=== PATIENT | male | born 1950 | race Caucasian/White ===

== ENCOUNTER 2019-09-01 19:06 | Emergency (ER) | payer MEDICARE, SELFPAY ==
[2019-09-01 19:07] VITALS: BP 139/77; PULSE 62; RESP 18; TEMP 36.5; O2SAT 98; BMI 26.9
[2019-09-01 19:57] VITALS: BP 144/84; PULSE 58; RESP 16; O2SAT 94
--- NOTE | 2019-09-01 20:41 | CT_ITS ---
STUDY: CT BRAIN WITHOUT CONTRAST REASON FOR EXAM: Male, 69 years old. Dizziness RADIATION DOSAGE (If Supplied By Facility): CTDIvol = ( 44.99 ) mGy, DLP = ( 829.85 ) mGycm TECHNIQUE: Transaxial CT imaging of the brain was performed without administration of intravenous contrast material. Individualized dose optimization techniques were used for this CT. COMPARISON: No relevant priors. FINDINGS: Normal soft tissue structures. Normal calvarium. There is mild cerebral atrophy with widening of the extra-axial spaces and ventricular dilatation. There are areas of decreased attenuation within the white matter tracts of the supratentorial brain, consistent with microvascular disease changes. Normal basal ganglia and thalami. Normal brainstem. Normal cerebellum. There is no intracranial hemorrhage. There are no findings of an acute ischemic infarction. Normal visualized paranasal sinuses. CT/Brain/Head without Contrast IMPRESSION: Chronic involutional changes of the brain. Electronically Signed: Robert Wong MD at 21:57 EDT , Service support ,
--- NOTE | 2019-09-01 20:41 | EKG12_ITS ---
Test Reason : DIZZY Blood Pressure : / mmHG Vent. Rate : 056 BPM Atrial Rate : 056 BPM P-R Int : 146 ms QRS Dur : 084 ms QT Int : 438 ms P-R-T Axes : 069 037 058 degrees QTc Int : 422 ms Sinus bradycardia Otherwise normal ECG Confirmed by AZALEA PRATHER, MICHEAL ([id number]), film and video editor TERA CAMPBELL ([id number]) on 09/05/2019 10:55:27 AM Referred By: LINDSAY Confirmed By:MICHEAL TRISTAN MD
[2019-09-01] MEDS: Meclizine HCl 25 MG Tablet PO (20:48)
[2019-09-01 21:10] LABS: Absolute Lymphocyte Count 1.88 X10^3/uL (0.83-4.51); Absolute Neutrophil Count 8.2 X10^3/uL (2.0-7.7); Basophil# 0.03 X10^3/uL; Basophil% 0.3 % (0-1); Eosinophils% 0.9 % (0-5); Hematocrit 47.8 % (40-54); Hemoglobin 15.9 g/dL (13.0-16.5); Lymphocyte # 1.88 X10^3/ul (4.0); Lymphocyte % 17.3 % (19-41); Mean Corp Hgb Conc 33.3 g/dL (32-36); Mean Corpuscular Hgb 33.3 pg (27.0-32.0); Mean Corpuscular Volume 100.2 fL (80-94); Mean Platelet Vol. 9.3 fl (6.2-12.0); Monocyte# 0.63 X10^3/uL; Monocyte% 5.8 % (0-10); NRBC Flagged by Analyzer 0 % (0-5); Neutrophil % 75.2 % (47-70); Platelet Count 396 K/mm3 (150-450); RBC Distribution Width CV 12.5 % (11.6-14.6); RBC Distribution Width SD 46.5 fl (35.1-43.9); Red Blood Count 4.77 M/mm3 (4.6-6.2); White Blood Count 10.9 K/mm3 (4.4-11.0)
[2019-09-01 21:29] LABS: Anion Gap 8 (5-15); BUN 13 mg/dL (7-18); BUN/Creat Ratio 16.2 RATIO (10-20); Calcium,Total 9.8 mg/dL (8.5-10.1); Chloride 103 mmol/L (98-107); EST Glomerular Filtration Rate 101 mL/min (>60); Est Glom Filt Rate - Afr Amer 122 mL/min (>60); Estimated Creatinine Clearance 91.51 ml/min; Glucose 121 mg/dL (74-106); Potassium 4.1 mmol/L (3.5-5.1); Sodium Level 137 mmol/L (136-145)
[2019-09-01 22:00] VITALS: BP 132/87; PULSE 62; RESP 16; O2SAT 98
--- NOTE | 2019-09-01 22:29 | ED.VISSUMM ---
- ER Visit Summary Date of Service: 09/01/19 Chief Complaint: [Dizziness] History of Present Illness: The patient is a 69 M [presents to the emergency department with complaint of dizziness for the last 2 days. Patient states that he awoke one morning and as soon as he sat up in bed he had sensation of things spinning around and round. Patient was nauseated with it. He did vomit once. Patient states that he at times has to walk holding onto things and feels very off balance. He does have a little bit of a right-sided headache. He denies any falls or head injuries. He denies recent illness. Patient is never had symptoms like this before. He denies any chest pain or shortness of breath.] Physical Examination: [HEENT-PERRLA, EOMI. Cranial nerves II through XII grossly intact. TMs clear. Mucous membranes moist. No adenopathy. Cardiovascular-regular rate and rhythm without murmur or ectopy Lungs-clear to auscultation, chest wall stable without crepitus or subcu emphysema Abdomen-normoactive bowel sounds, soft, nontender, no rebound or rigidity, no peritoneal signs. Neuro aljj-bbsuwx-wgsp and heel forbes testing within normal limits, negative Romberg, negative pronator drift, fundi benign. Patient had Hallpike maneuver performed however I could not reproduce any nystagmus or any of his symptoms. Extremities-intact ?4, normal range of motion, normal pulses, atraumatic] Test Results: [EKG obtained arrival shows sinus rhythm with a ventricular rate of 56 bpm with no acute ST segment changes. CBC with differential shows a white count 10.9, hemoglobin 15.9, hematocrit 48, platelets 396. Chemistries unremarkable. Troponin less than 0.15. CT scan of the brain without contrast showed chronic involutional changes. Static vital signs were negative.] Emergency Department Course and Treatment: [Received Antivert 25 mg p.o. and had very good improvement in his symptoms. Patient now able to ambulate without difficulty. Dizziness is minimal at this time. Patient feels comfortable going home and following up with primary care physician.] Treatment Plan: [Discharged home in stable condition with prescription for Antivert. Patient advised to follow-up with primary care physician 3 to 5 days.] Disposition: [Discharged home stable condition] Impression: [Benign positional vertigo] This note was generated with Dragon dictation software. It may contain incorrect words, spelling, and punctuation that were not noted in review of the chart prior to signing ED Disposition - Plan for ED Patient: [facility] [Primary Care Provider] -
--- NOTE | 2019-09-01 22:32 | ED.DEP ---
ED Disposition - Plan for ED Patient: Instructions: Benign Positional Vertigo Prescriptions: Meclizine HCl [Antivert] 25 mg PO 4X/DAY PRN PRN #20 tab PRN Reason: Anxiety Prescription Printed Referrals: [facility] [Primary Care Provider] - 3-5 Days
[2019-09-01 22:39] VITALS: BP 137/80; PULSE 58; RESP 16; O2SAT 95
== END 2019-09-01 22:42 | disposition short-term general hospital (02) ==
PROVIDERS: Emergency Provider Emergency Medicine
DX: H81.10 Benign paroxysmal vertigo, unspecified ear (principal); I10 Essential (primary) hypertension; J44.9 Chronic obstructive pulmonary disease, unspecified; K21.9 Gastro-esophageal reflux disease without esophagitis; E11.9 Type 2 diabetes mellitus without complications; Z79.899 Other long term (current) drug therapy; Z72.0 Tobacco use
CPT/HCPCS: 70450; 80048; 84484; 85025; 93005; 99285; A4216

== ENCOUNTER 2021-01-10 16:09 | Outpatient (RCR) | payer MEDICARE, SELFPAY ==
[2021-01-10] MEDS: COVID-19 VACC, MRNA(PFIZER)/PF 30 MCG/0.3 ML SYRINGE IM (18:30)
[2021-01-31] MEDS: COVID-19 VACC, MRNA(PFIZER)/PF 30 MCG/0.3 ML SYRINGE IM (18:05)
== END 2021-01-10 23:59 ==
LOC: IMMUN 16:09
PROVIDERS: Referring Provider Family Medicine; Visit Provider Family Medicine
DX: Z23 Encounter for immunization (principal)
CPT/HCPCS: 0001A; 0002A; 91300

== ENCOUNTER 2021-09-12 17:57 | Emergency (ER) | payer MEDICARE, OTHER, SELFPAY ==
[2021-09-12 17:59] VITALS: BP 170/157; PULSE 61; TEMP 35.9; O2SAT 95; BMI 28.4
[2021-09-12 18:15] VITALS: BP 142/93; PULSE 65; RESP 20; O2SAT 91
--- NOTE | 2021-09-12 18:19 | EKG12_ITS ---
Test Reason : SOB Blood Pressure : / mmHG Vent. Rate : 058 BPM Atrial Rate : 058 BPM P-R Int : 000 ms QRS Dur : 074 ms QT Int : 414 ms P-R-T Axes : 000 024 053 degrees QTc Int : 406 ms Ectopic atrial rhythm Abnormal ECG Confirmed by STEVEN PRATHER, ANA ([id number]), news video editor TERA CAMPBELL ([id number]) on 09/16/2021 10:54:47 AM Referred By: BELEN Confirmed By:ANA HARRIS MD
[2021-09-12] MEDS: MethylPREDNISolone 125 MG/2 ML Vial IV (18:34)
--- NOTE | 2021-09-12 18:38 | EDS_ITS ---
HPI History of Present Illness Chief Complaint: Shortness of Breath Narrative Narrative: Patient is a 71-year-old male with past medical history of COPD who states he does not typically need to wear any supplemental oxygen. He reports over the last 5 to 7 days he had increased congestion cough and shortness of breath. He states he went to an urgent care today where they swabbed him for Covid and he was negative. He reports he was given an inhaler but had no symptom improvement and secondary to this comes in for evaluation. [facility] Medical History Acute maxillary sinusitis, unspecified Encounter for screening for COVID-19 Home Medications amlodipine 10 mg PO DAILY 08/13/15 [History Last Taken Unknown] carvedilol 12.5 mg PO BID 08/13/15 [History Last Taken Unknown] cholecalciferol (vitamin D3) [Vitamin D3] 1,000 unit PO DAILY 08/13/15 [History Last Taken Unknown] lysine HCl 1,000 mg PO DAILY 08/13/15 [History Last Taken Unknown] kvmibqyg-nah-MQ-lycopen-lutein [Centrum Silver] 1 ea PO DAILY 08/13/15 [History Last Taken Unknown] omeprazole 20 mg PO BID 08/13/15 [History Last Taken Unknown] rosuvastatin [Crestor] 20 mg PO QHS 08/13/15 [History Last Taken Unknown] simethicone [Gas-X] 80 mg PO BID 08/13/15 [History Last Taken Unknown] diphenhydramine HCl [Benadryl] 25 mg PO TID PRN PRN #20 capsule 08/14/15 [Rx Last Taken Unknown] epinephrine 0.3 mg IM X1 PRN #2 syringe 08/14/15 [Rx Last Taken Unknown] famotidine 20 mg PO BID 7 Days tablet 08/14/15 [Rx Last Taken Unknown] prednisone 20 mg PO DAILY 5 Days days 08/14/15 [Rx Last Taken Unknown] sulfamethoxazole-trimethoprim 1 tab PO BID #28 tab 11/24/17 [Rx Last Taken Unknown] meclizine 25 mg PO 4X/DAY PRN PRN #20 tab 09/01/19 [Rx Last Taken Unknown] benzonatate 200 mg PO TID PRN #60 cap 09/12/21 [Rx Last Taken Unknown] ipratropium-albuterol 3 ml INHALATION Q6H PRN #180 ml 09/12/21 [Rx Last Taken Unknown] prednisone 40 mg PO DAILY #10 tab 09/12/21 [Rx Last Taken Unknown] Allergy/AdvReac Type Severity Reaction Status Date / Time No Known Allergies Allergy Verified 09/12/21 17:58 Social History Smoking Status: Current every day smoker tobacco type: cigarettes ROS ROS ED Constitutional Constitutional ED: Denies chills or fever(s) ENT ENT ED: Reports rhinorrhea; Denies sore throat Cardiovascular Cardiovascular: Denies chest pain Respiratory/Chest Respiratory/Chest: Reports cough and dyspnea Gastrointestinal Gastrointestinal: Denies abdominal pain, diarrhea, nausea or vomiting Genitourinary Genitourinary ED: Denies dysuria Musculoskeletal Musculoskeletal: Denies myalgias Integumentary Denies rash Neurologic Neurologic: Denies headache(s) Hematologic/Lymphatic Hematologic/Lymphatic: Denies easy bleeding or easy bruising EXAM Physical Exam Const Vital Signs: 09/12/21 17:59 09/12/21 18:15 09/12/21 18:47 Temperature 96.6 F L Temperature Source Temporal Pulse Rate 61 65 69 Respiratory Rate 20 H 22 H Respiratory Effort Non-Labored Short of Breath Short of Breath Respiratory Depth Normal Shallow Respiratory Pattern Tachypnea Blood Pressure 170/157 H 142/93 H Blood Pressure Mean 161 109 Pulse Ox 95 91 93 Oxygen Delivery Method Room Air Room Air Room Air 09/12/21 19:38 Temperature Temperature Source Pulse Rate 61 Respiratory Rate 18 Respiratory Effort Respiratory Depth Respiratory Pattern Blood Pressure 118/62 Blood Pressure Mean 80 Pulse Ox 92 Oxygen Delivery Method Room Air Positive well nourished and well developed General Appearance ED: well developed HEENT Reports moist mucous membranes HEENT Narrative: Cobblestoning the posterior pharynx consistent with sinus drainage but no tongue or lip swelling no oral lesions no airway edema or compro mise Eyes PERRL and EOMs intact bilaterally Neck supple and no JVD Chest Wall palpation of chest normal Resp Resp Narrative: Breath sounds are diminished throughout with diffuse inspiratory and expiratory wheezes as well as mild tachypnea but otherwise no signs of respiratory distress Cardio regular rate and regular rhythm Rate: other Other Details: Radial pulses are plus 2 out of 4 bilaterally are equal and symmetric GI normal to inspection, nondistended, normoactive bowel sounds, non-tender, non- distended and no masses GI Narrative: No voluntary guarding or rigidity no pulsatile mass Auscultation: normoactive bowel sounds Palpation: soft Extremity normal to inspection Extremity Narrative: No asymmetric edema no pitting edema negative Homans' sign bilaterally Neuro oriented x3 and CN's II-XII intact bilaterally Sensorium / Orientation: alert Psych mental status grossly normal Skin no rashes or lesions noted MDM MDM MDM Narrative Medical decision making narrative: Scented to the ER afebrile and satting in the low to mid 90s on room air. He reports he smoked up to 3 packs a day for approximately 30 years and that he also had an outpatient Covid test today which was negative. Based on his history I felt he was having a COPD exacerbation secondary to some type of virus. I elected perform a basic cardiac work-up which shows no signs of heart failure and chest x-ray reveals no signs of pneumothorax or pneumonia. Patient was given breathing treatments as well as Solu-Medrol and on reevaluation has improvement in his breath sounds. He was ambulated and his pulse ox started at 96% and dropped to 90 but not below this. Therefore I feel that he does not desaturate into the 80s or 70s and he does not have signs of heart damage or pneumonia that he does not need to be kept in the hospital and can be discharged with symptomatic care Lab Data Attestation: I reviewed the patient's lab results. Labs: Laboratory Results - last 24 hr 09/12/21 09/12/21 09/12/21 18:26 18:26 18:26 WBC 9.1 RBC 4.75 Hgb 15.9 Hct 47.0 MCV 98.9 H MCH 33.5 H MCHC 33.8 RDW Std Deviation 48.1 H RDW Coeff of Tarik 13.1 Plt Count 292 MPV 10.3 Immature Gran % (Auto) 0.200 Neut % (Auto) 58.5 Lymph % (Auto) 22.5 [place] % (Auto) 8.1 Eos % (Auto) 10.3 H Baso % (Auto) 0.4 Absolute Neuts (auto) 5.3 Absolute Lymphs (auto) 2.06 Nucleated RBC % 0 Sodium 138 Potassium 4.2 Chloride 103 Carbon Dioxide 29.0 Anion Gap 6 BUN 14 Creatinine 1.06 Estim Creat Clear Calc 67.09 Est GFR (MDRD) Af Amer 88 Est GFR (MDRD) Non-Af 73 BUN/Creatinine Ratio 13.2 Glucose 154 H Calcium 9.3 Magnesium 2.1 Troponin I High Sens 10 B-Natriuretic Peptide 17.0 Radiography Diagnostic Testing: Clinical Impression(s) from Imaging Studies Chest X-Ray 09/12/21 19:00 IMPRESSION: No acute radiographic abnormalities. COPD. Electronically Signed: Luis Lion MD at 19:20 EDT Tel , Service support , Discharge Plan Triage Chief Complaint: Shortness of Breath ED Provider: Aftab Mann Dx/Rx/DC Orders Clinical Impression: Acute exacerbation of chronic obstructive pulmonary disease Instructions: COPD: Wheezing and Chest Tightness Prescriptions: New prednisone 20 mg tablet 40 mg PO DAILY Qty: 10 RF: 0 benzonatate 100 mg capsule 200 mg PO TID PRN (Reason: cough) Qty: 60 RF: 0 ipratropium-albuterol 0.5 mg-3 mg(2.5 mg base)/3 mL solution for nebulization 3 ml inhalation Q6H PRN (Reason: shortness of breath or wheezing) Qty: 180 RF: 0 No Action carvedilol 12.5 MG tablet 12.5 mg PO BID RF: 0 amlodipine 10 MG tablet 10 mg PO DAILY RF: 0 omeprazole 20 MG capsule 20 mg PO BID RF: 0 simethicone [Gas-X] 80 MG tablet,chewable 80 mg PO BID RF: 0 rosuvastatin [Crestor] 20 MG tablet 20 mg PO QHS RF: 0 xemjuhbo-nlh-YV-lycopen-lutein [Centrum Silver] 1 EACH tablet 1 ea PO DAILY RF: 0 cholecalciferol (vitamin D3) [Vitamin D3] 1,000 UNIT tablet 1,000 unit PO DAILY RF: 0 lysine HCl 1,000 MG tablet 1,000 mg PO DAILY RF: 0 prednisone 10 MG tablet 20 mg PO DAILY 5 Days RF: 0 famotidine 20 MG tablet 20 mg PO BID 7 Days RF: 0 diphenhydramine HCl [Banophen] 25 MG capsule 25 mg PO TID PRN PRN (Reason: Allergies) Qty: 20 RF: 0 epinephrine 0.3 MG syringe 0.3 mg IM X1 PRN (Reason: Angioedema) Qty: 2 RF: 0 sulfamethoxazole-trimethoprim 1 TABLET tablet 1 tab PO BID Qty: 28 RF: 0 meclizine 25 MG tablet 25 mg PO 4X/DAY PRN PRN (Reason: Anxiety) Qty: 20 RF: 0 [facility] Provider[facility] [[facility] Provider] - Disposition Disposition: Home, Self Care
[2021-09-12 18:39] LABS: Absolute Lymphocyte Count 2.06 X10^3/uL (0.83-4.51); Absolute Neutrophil Count 5.3 X10^3/uL (2.0-7.7); Basophil# 0.04 X10^3/uL; Basophil% 0.4 % (0-1); Eosinophil# 0.94 X10^3/uL; Eosinophils% 10.3 % (0-5); Hemoglobin 15.9 g/dL (13.0-16.5); Lymphocyte # 2.06 X10^3/ul (0.83-4.51); Lymphocyte % 22.5 % (19-41); Mean Corp Hgb Conc 33.8 g/dL (32-36); Mean Corpuscular Hgb 33.5 pg (27.0-32.0); Mean Corpuscular Volume 98.9 fL (80-94); Mean Platelet Vol. 10.3 fl (6.2-12.0); Monocyte# 0.74 X10^3/uL; Monocyte% 8.1 % (0-10); NRBC Flagged by Analyzer 0 % (0-5); Neutrophil # 5.34 X10^3/uL (2.7-7.7); Neutrophil % 58.5 % (47-70); Platelet Count 292 K/mm3 (150-450); RBC Distribution Width CV 13.1 % (11.6-14.6); RBC Distribution Width SD 48.1 fl (35.1-43.9); Red Blood Count 4.75 M/mm3 (4.6-6.2); White Blood Count 9.1 K/mm3 (4.4-11.0)
[2021-09-12 18:47] VITALS: PULSE 69; RESP 20; RESP 22; O2SAT 93
[2021-09-12] MEDS: Albuterol 2.5 MG/3 ML VIAL.NEB. INHALATION (18:47)
[2021-09-12] MEDS: Ipratropium/Albuterol Sulfate 3 ML AMPUL.NEB INHALATION (18:47)
[2021-09-12 18:54] LABS: Anion Gap 6 (5-15); BUN 14 mg/dL (7-18); BUN/Creat Ratio 13.2 RATIO (10-20); Calcium,Total 9.3 mg/dL (8.5-10.1); Chloride 103 mmol/L (98-107); Creatinine, Serum 1.06 mg/dL (0.70-1.30); EST Glomerular Filtration Rate 73 mL/min (>60); Est Glom Filt Rate - Afr Amer 88 mL/min (>60); Estimated Creatinine Clearance 67.09 ml/min; Glucose 154 mg/dL (74-106); Magnesium 2.1 mg/dL (1.6-2.6); Potassium 4.2 mmol/L (3.5-5.1); Sodium Level 138 mmol/L (136-145); Troponin-I HS 10 pg/mL (3.0-78.0)
--- NOTE | 2021-09-12 19:00 | RAD_ITS ---
INDICATION: cough EXAMINATION/TECHNIQUE: X-RAY - XR Chest 2 Views COMPARISON: 11/23/2017. FINDINGS: Chronic lung changes. No acute lung findings. Hyperinflated lungs. Tortuous and calcified thoracic aorta. The heart is borderline enlarged. No pleural effusion or pneumothorax. Degenerative changes of the thoracic spine. RAD/Chest PA and Lateral IMPRESSION: No acute radiographic abnormalities. COPD. Electronically Signed: Luis Lion MD at 19:20 EDT Tel , Service support ,
[2021-09-12 19:38] VITALS: BP 118/62; PULSE 61; RESP 18; O2SAT 92
[2021-09-12 19:42] VITALS: O2SAT 96
== END 2021-09-12 19:59 | disposition home or self-care (01) ==
PROVIDERS: Emergency Provider Emergency Medicine
DX: J44.1 Chronic obstructive pulmonary disease with (acute) exacerbation (principal); F17.210 Nicotine dependence, cigarettes, uncomplicated
CPT/HCPCS: 71046; 80048; 83735; 83880; 84484; 85025; 93005; 94640; 96374; 99251; 99283; A4216; G0463

== ENCOUNTER 2021-09-26 14:47 | Emergency (ER) | payer OTHER, SELFPAY ==
[2021-09-26 14:48] VITALS: BP 118/80; PULSE 67; RESP 22; TEMP 36.9; O2SAT 85; BMI 26.4
[2021-09-26 14:51] VITALS: O2SAT 89; O2SAT 95
[2021-09-26 14:58] VITALS: O2SAT 93
--- NOTE | 2021-09-26 15:17 | EKG12_ITS ---
Test Reason : SOB Blood Pressure : / mmHG Vent. Rate : 058 BPM Atrial Rate : 058 BPM P-R Int : 160 ms QRS Dur : 080 ms QT Int : 440 ms P-R-T Axes : 109 032 062 degrees QTc Int : 431 ms Sinus bradycardia Otherwise normal ECG Confirmed by ADAM PRATHER, JORDON ([id number]), magazine editor TERA CAMPBELL ([id number]) on 09/27/2021 1:58:45 P M Referred By: YA Confirmed By:VIDYA MEDINA MD
--- NOTE | 2021-09-26 15:17 | CT_ITS ---
STUDY: CTA CHEST REASON FOR EXAM: Male, 71 years old. Hypoxia RADIATION DOSAGE (If Supplied By Facility): CTDIvol = ( 11.94 ) mGy, DLP = ( 432.7 ) mGycm TECHNIQUE: The examination was performed with the intravenous administration of IV 100mL Isovue-370. Post-processing of the angiographic images was performed, with multiplanar reformation and 3D reconstruction. Individualized dose optimization techniques were used for this CT. COMPARISON: 06/19/2012 FINDINGS: Several 2 to 3 mm right lung base pulmonary nodules are stable compared to remote prior. Normal enhancement of the main pulmonary artery and right and left pulmonary arteries. Normal enhancement of the bilateral peripheral pulmonary arteries. There is no demonstrated pulmonary embolism. There is aneurysmal dilatation of the ascending aorta. The transverse diameter of the ascending aorta measures 41 mm''s. There is no demonstrated aortic dissection. Normal heart and pericardium. Normal mediastinum. Normal hilar regions. Normal visualized trachea and bronchi. The lungs are well expanded. Severe diffuse emphysema. Normal pleura. Normal chest wall structures. Normal osseous structures. Normal visualized upper abdomen. CT/CTA Chest W/WO Contrast IMPRESSION: No demonstrated pulmonary embolism or arterial dissection. Severe diffuse emphysematous disease. Ascending aortic aneurysm measures up to 41 mm in diameter. Electronically Signed: Reese Hess MD at 17:19 EST Tel , Service support ,
[2021-09-26 15:29] LABS: Absolute Lymphocyte Count 2.11 X10^3/uL (0.83-4.51); Absolute Neutrophil Count 5.7 X10^3/uL (2.0-7.7); Basophil# 0.04 X10^3/uL; Basophil% 0.4 % (0-1); Eosinophil# 1.27 X10^3/uL; Eosinophils% 12.6 % (0-5); Hemoglobin 16.3 g/dL (13.0-16.5); Lymphocyte # 2.11 X10^3/ul (0.83-4.51); Lymphocyte % 20.9 % (19-41); Mean Corpuscular Hgb 33.2 pg (27.0-32.0); Mean Corpuscular Volume 97.8 fL (80-94); Mean Platelet Vol. 10.3 fl (6.2-12.0); Monocyte# 0.89 X10^3/uL; Monocyte% 8.8 % (0-10); NRBC Flagged by Analyzer 0 % (0-5); Neutrophil # 5.73 X10^3/uL (2.7-7.7); Neutrophil % 56.8 % (47-70); Platelet Count 270 K/mm3 (150-450); RBC Distribution Width CV 12.9 % (11.6-14.6); RBC Distribution Width SD 46.3 fl (35.1-43.9); Red Blood Count 4.91 M/mm3 (4.6-6.2); White Blood Count 10.1 K/mm3 (4.4-11.0)
[2021-09-26] MEDS: MethylPREDNISolone 125 MG/2 ML Vial IV (15:29)
--- NOTE | 2021-09-26 15:31 | EDS_ITS ---
HPI History of Present Illness Chief Complaint: Shortness of Breath Narrative Narrative: Patient is a 71-year-old male with past medical history of COPD who smokes half to 1 pack a day. He was seen approximately 2 weeks ago for similar event and at that time was Covid negative did not have pneumonia or signs of heart damage. When he was ambulated and his pulse ox did not drop and therefore he was discharged home with symptomatic medications. Patient states while he was on the steroids he reported feeling better but after that had return of shortness of breath. He states that his has a home pulse ox because she wears oxygen and that with ambulation he has had his pulse ox dropped into the low 80s. Secondary to these worsening symptoms and hypoxia he presents for reevaluation [facility] Medical History Acute maxillary sinusitis, unspecified Encounter for screening for COVID-19 Home Medications Centrum Silver 1 ea PO DAILY 08/13/15 [History Last Taken Unknown] simethicone [Gas-X] 80 mg PO BID 08/13/15 [History Last Taken Unknown] ipratropium-albuterol 3 ml INHALATION Q6H PRN #180 ml 09/12/21 [Rx Last Taken Unknown] Mucinex 1,200 mg PO/SL BID 09/26/21 [History Last Taken Unknown] aspirin 81 mg PO/SL DAILY 09/26/21 [History Last Taken Unknown] cetirizine 10 mg PO/SL BID 09/26/21 [History Last Taken Unknown] fluticasone furoate-vilanterol [Breo Ellipta] 1 inh INHALATION DAILY #60 ea 09/26/21 [Rx Last Taken Unknown] fluticasone propionate 50 mcg NASAL PRN PRN 09/26/21 [History Last Taken Unknown] hydrochlorothiazide 25 mg PO/SL DAILY 09/26/21 [History Last Taken Unknown] ipratropium-albuterol 3 ml INHALATION Q6H PRN #90 ml 09/26/21 [Rx Last Taken Unknown] lisinopril 30 mg PO/SL DAILY 09/26/21 [History Last Taken Unknown] metformin 09/26/21 [History Last Taken Unknown] metoprolol tartrate 50 mg PO/SL BID 09/26/21 [History Last Taken Unknown] montelukast 10 mg PO/SL QHS 09/26/21 [History Last Taken Unknown] potassium chloride 20 mg PO/SL BID 09/26/21 [History Last Taken Unknown] prednisone 40 mg PO DAILY #10 tab 09/26/21 [Rx Last Taken Unknown] simvastatin 20 mg PO/SL DAILY 09/26/21 [History Last Taken Unknown] Allergy/AdvReac Type Severity Reaction Status Date / Time No Known Allergies Allergy Verified 09/26/21 14:57 Social History Smoking Status: Current every day smoker tobacco type: cigarettes ROS ROS ED Constitutional Constitutional ED: Denies chills or fever(s) ENT ENT ED: Denies rhinorrhea or sore throat Cardiovascular Cardiovascular: Denies chest pain Respiratory/Chest Respiratory/Chest: Reports cough and dyspnea; Denies sputum Gastrointestinal Gastrointestinal: Denies abdominal pain, diarrhea, nausea or vomiting Genitourinary Genitourinary ED: Denies dysuria Musculoskeletal Musculoskeletal: Denies myalgias Integumentary Denies rash Neurologic Neurologic: Denies headache(s) Hematologic/Lymphatic Hematologic/Lymphatic: Denies easy bleeding or easy bruising EXAM Physical Exam Const Vital Signs: 09/26/21 14:48 09/26/21 14:51 09/26/21 14:56 Temperature 98.4 F Temperature Source Temporal Pulse Rate 67 Respiratory Rate 22 H Respiratory Effort Respiratory Depth Respiratory Pattern Blood Pressure 118/80 Blood Pressure Mean 92 Pulse Ox 85 95 Oxygen Delivery Method Room Air Nasal Cannula Nasal Cannula Oxygen Flow Rate (L/min) 2 2 09/26/21 14:58 09/26/21 15:52 Temperature Temperature Source Pulse Rate 62 Respiratory Rate 22 H Respiratory Effort Short of Breath Respiratory Depth Normal Respiratory Pattern Tachypnea Tachypnea Blood Pressure Blood Pressure Mean Pulse Ox Oxygen Delivery Method Nasal Cannula Oxygen Flow Rate (L/min) 2 Positive well nourished and well developed General Appearance ED: well developed HEENT Reports moist mucous membranes HEENT Narrative: No tongue or lip swelling no oral lesions no airway edema or compromise Eyes PERRL and EOMs intact bilaterally Neck supple and no JVD Resp normal respiratory effort Resp Narrative: Breath sounds are diminished throughout with diffuse inspiratory and expiratory wheezes but no nasal flaring retractions tachypnea or accessory muscle use Cardio regular rate and regular rhythm Rate: other Other Details: Radial pulses are plus 2 out of 4 bilaterally are equal and symmetric GI normal to inspection, nondistended, normoactive bowel sounds, non-tender, non- distended and no masses Auscultation: normoactive bowel sounds Palpation: soft Extremity normal to inspection Extremity Narrative: No asymmetric edema no pitting edema negative Homans' sign bilaterally Neuro oriented x3 and CN's II-XII intact bilaterally Sensorium / Orientation: alert Psych mental status grossly normal Skin no rashes or lesions noted MDM MDM MDM Narrative Medical decision making narrative: To the ER satting 85% on room air. However at rest and with a few liters of nasal cannula oxygen his pulse ox improved to 92 to 95%. With his recent ER visit approximately 2 weeks ago I did elect to perform repeat laboratory studies as well as Covid swab and this time a CTA. Labs revealed no clinically significant findings and CTA revealed emphysema/COPD changes without pneumonia or pneumothorax or lung cancer changes. Therefore at this time patient does not have cardiac event anemia or infection as a cause of his shortness of breath but simply COPD exacerbation. We have the ability to prescribe oxygen and therefore he will be placed on this and otherwise is safe for discharge since he now has a treatment that which would be provided in the hospital. This plan of care was discussed with the patient and he is agreeable to it Lab Data Attestation: I reviewed the patient's lab results. Labs: Laboratory Results - last 24 hr 09/26/21 09/26/21 09/26/21 15:05 15:05 15:05 WBC RBC Hgb Hct MCV MCH MCHC RDW Std Deviation RDW Coeff of Tarik Plt Count MPV Immature Gran % (Auto) Neut % (Auto) Lymph % (Auto) [place] % (Auto) Eos % (Auto) Baso % (Auto) Absolute Neuts (auto) Absolute Lymphs (auto) Nucleated RBC % PT 12.4 INR 1.0 APTT 23.9 L Sodium 137 Potassium 3.7 Chloride 101 Carbon Dioxide 30.0 Anion Gap 6 BUN 13 Creatinine 1.02 Estim Creat Clear Calc 69.72 Est GFR (MDRD) Af Amer 92 Est GFR (MDRD) Non-Af 76 BUN/Creatinine Ratio 12.7 Glucose 122 H Calcium 9.3 Magnesium 2.3 Troponin I High Sens 7 B-Natriuretic Peptide 10.3 09/26/21 15:05 WBC 10.1 RBC 4.91 Hgb 16.3 Hct 48.0 MCV 97.8 H MCH 33.2 H MCHC 34.0 RDW Std Deviation 46.3 H RDW Coeff of Tarik 12.9 Plt Count 270 MPV 10.3 Immature Gran % (Auto) 0.500 Neut % (Auto) 56.8 Lymph % (Auto) 20.9 [place] % (Auto) 8.8 Eos % (Auto) 12.6 H Baso % (Auto) 0.4 Absolute Neuts (auto) 5.7 Absolute Lymphs (auto) 2.11 Nucleated RBC % 0 PT INR APTT Sodium Potassium Chloride Carbon Dioxide Anion Gap BUN Creatinine Estim Creat Clear Calc Est GFR (MDRD) Af Amer Est GFR (MDRD) Non-Af BUN/Creatinine Ratio Glucose Calcium Magnesium Troponin I High Sens B-Natriuretic Peptide Radiography Diagnostic Testing: Clinical Impression(s) from Imaging Studies Chest CTA 09/26/21 15:17 IMPRESSION: No demonstrated pulmonary embolism or arterial dissection. Severe diffuse emphysematous disease. Ascending aortic aneurysm measures up to 41 mm in diameter. Electronically Signed: Reese Hess MD at 17:19 EST Tel , Service support , Discharge Plan Triage Chief Complaint: Shortness of Breath ED Provider: Aftab Mann Dx/Rx/DC Orders Clinical Impression: Acute exacerbation of chronic obstructive pulmonary disease, Hypoxia Instructions: Chronic Lung Disease ... Prescriptions: New Breo Ellipta 100-25 mcg/dose blister with device 1 inh inhalation DAILY Qty: 60 RF: 0 prednisone 20 mg tablet 40 mg PO DAILY Qty: 10 RF: 0 ipratropium-albuterol 0.5 mg-3 mg(2.5 mg base)/3 mL solution for nebulization 3 ml inhalation Q6H PRN (Reason: shortness of breath or wheezing) Qty: 90 RF: 0 No Action simethicone [Gas-X] 80 MG tablet,chewable 80 mg PO BID RF: 0 Centrum Silver 1 EACH tablet 1 ea PO DAILY RF: 0 ipratropium-albuterol 0.5 mg-3 mg(2.5 mg base)/3 mL solution for nebulization 3 ml inhalation Q6H PRN (Reason: shortness of breath or wheezing) Qty: 180 RF: 0 metformin RF: 0 Mucinex 1,200 mg PO/SL BID RF: 0 aspirin 81 mg PO/SL DAILY RF: 0 cetirizine 10 mg PO/SL BID RF: 0 fluticasone propionate 50 mcg NASAL PRN PRN (Reason: Congestion) RF: 0 hydrochlorothiazide 25 mg PO/SL DAILY RF: 0 lisinopril 30 mg PO/SL DAILY RF: 0 metoprolol tartrate 50 mg PO/SL BID RF: 0 montelukast 10 mg PO/SL QHS RF: 0 potassium chloride 20 mg PO/SL BID RF: 0 simvastatin 20 mg PO/SL DAILY RF: 0 [place] [facility] [place] [[place]] - Disposition Disposition: Home, Self Care
[2021-09-26 15:34] LABS: Prothrombin Time (Protime)PT. 12.4 SECONDS (11.7-14.9)
[2021-09-26 15:35] LABS: Partial Thromboplast Time 23.9 Seconds (24.1-36.2)
[2021-09-26 15:43] LABS: Anion Gap 6 (5-15); BUN 13 mg/dL (7-18); BUN/Creat Ratio 12.7 RATIO (10-20); Calcium,Total 9.3 mg/dL (8.5-10.1); Chloride 101 mmol/L (98-107); Creatinine, Serum 1.02 mg/dL (0.70-1.30); EST Glomerular Filtration Rate 76 mL/min (>60); Est Glom Filt Rate - Afr Amer 92 mL/min (>60); Estimated Creatinine Clearance 69.72 ml/min; Glucose 122 mg/dL (74-106); Magnesium 2.3 mg/dL (1.6-2.6); Potassium 3.7 mmol/L (3.5-5.1); Sodium Level 137 mmol/L (136-145); Troponin-I HS 7 pg/mL (3.0-78.0)
[2021-09-26] MEDS: Albuterol 2.5 MG/3 ML VIAL.NEB. INHALATION (15:45)
[2021-09-26] MEDS: Ipratropium/Albuterol Sulfate 3 ML AMPUL.NEB INHALATION (15:45)
[2021-09-26 15:52] VITALS: PULSE 62; RESP 22
[2021-09-26 16:00] LABS: BNP,B-Type NATRIURETIC PEPTIDE 10.3 pg/mL (0-100)
--- NOTE | 2021-09-26 18:17 | CM.ED ---
Addendum entered by Rosalinda Crane 09/26/21 19:44: ISAI called Eunice at the number given [phone] 3 additional times and went to voice mail. ISAI then called Eunice on her 's phone, which she had called this service writer advisor earlier on, and advised patient has been discharged. Rosalinda SAEZ Addendum entered by Rosalinda Crane 09/26/21 18:47: ISAI faxed referral packet to [facility]. ISAI called Swati Eunice and advised in voice mail that patient has left the hospital. ISAI called Swati Eunice and it went to voice mail. Rosalinda SAEZ Original Note: ISAI Note ISAI was advised by that patient may need home oxygen. ISAI spoke to CM Director Of Global Marketing, Stephany Miguel as patient may need home oxygen with VA and Medicare insurance and this service writer advisor was advised to ask patient which provider he would like to use. Isai met with patient. He indicated that his PCP is Tash Pope at [facility]. ISAI asked patient about his desire in regard to discharge tonight with oxygen from home oxygen or from [facility] tomorrow. Patient said that his preference is that he gets oxygen supply tonight through home oxygen. ISAI advised that patient can follow up with the [facility] tomorrow and patient and his significant other said that is what they will do (take home oxygen home tonight and notify [facility] tomorrow) . ISAI spoke to Eunice at [facility]. They can not bill the [facility] but can bill medicare which if they have met the deductible is 20%. ISAI spoke to patient and his significant other. They were advised of the 20% copay if the deductible is met and the average cost of the home oxygen. Then indicated that they will take the home oxygen home tonight and will follow up with the [facility]. Significant other said that she has the number to the [facility] in [place]. ISAI updated RN. She is getting respiratory to meet with patient.ISAI sent email to [facility]. Plan:Home oxygen Rosalinda SAEZ
[2021-09-26 19:07] VITALS: BP 128/77; PULSE 64; RESP 18; O2SAT 93
--- NOTE | 2021-09-26 19:57 | CM.ED ---
Danyell Note SW received phone call from [employer]. She advised her company tanker truck driver/tech went to the house and patient refused the home oxygen. He said that he will follow up with the [facility] tomorrow. Patient signed an AMA with the company tanker truck driver from [employer]. DANYELL updated RN and MD. DANYELL sent update to [facility]. Of note, DANYELL met with trim technician who had reviewed home oxygen set up and pulse oxygen with patient. Patient told tech he was familiar with home oxygen as his wears it. He declined pulse oxygen level toolroom checker per trim technician. He did not voice to gissel, RN or this keno writer/runner plan to decline home oxygen. Rosalinda SAEZ
== END 2021-09-26 19:10 | disposition home or self-care (01) ==
PROVIDERS: Emergency Provider Emergency Medicine
DX: J43.9 Emphysema, unspecified (principal); R09.02 Hypoxemia; F17.210 Nicotine dependence, cigarettes, uncomplicated; Z79.82 Long term (current) use of aspirin
CPT/HCPCS: 71275; 80048; 83735; 83880; 84484; 85025; 85610; 85730; 87426; 93005; 94640; 96374; 99283; Q9967; A4216

== ENCOUNTER 2021-10-17 10:37 | Inpatient (IN) | payer OTHER, SELFPAY ==
[2021-10-17] VITALS (13 sets, daily range): BP systolic 112–142; BP diastolic 74–86; PULSE 74–88; RESP 15–20; TEMP 35.9–36.8; O2SAT 89–95; BMI 26.4
--- NOTE | 2021-10-17 12:02 | EKG12_ITS ---
Test Reason : SOB Blood Pressure : / mmHG Vent. Rate : 064 BPM Atrial Rate : 064 BPM P-R Int : 154 ms QRS Dur : 076 ms QT Int : 398 ms P-R-T Axes : 062 020 072 degrees QTc Int : 410 ms Sinus rhythm with Premature atrial complexes Nonspecific ST abnormality Abnormal ECG Confirmed by AZALEA PRATHER, MICHEAL ([id number]), field map editor TERA CAMPBELL ([id number]) on 10/18/2021 11:43:12 AM Referred By: JENNIFER Confirmed By:MICHEAL TRISTAN MD
--- NOTE | 2021-10-17 12:05 | RAD_ITS ---
STUDY: X-RAY CHEST REASON FOR EXAM: Male, 71 years old. Hypoxia, cough, wheezing TECHNIQUE: Single AP portable view of the chest. COMPARISON: Comparison is made with prior study dated 09/12/2021. FINDINGS: There is hyperinflation of the lungs consistent with chronic obstructive lung disease (COPD). Patchy bibasilar pulmonary infiltrates. There is no demonstrated pleural abnormality. Normal size heart. Normal mediastinum and lisa. Normal visualized pulmonary arteries. There is atherosclerotic calcification of the aortic arch with tortuosity. There are diffuse degenerative changes of the visualized thoracic spine. Normal visualized ribs, clavicles, and shoulders. There is no demonstrated abnormality of the visualized soft tissue structures of the upper abdomen. RAD/Chest 1 View (Portable) IMPRESSION: Patchy bibasilar pulmonary infiltrates. Electronically Signed: Anibal Jimenez MD at 12:59 EST , Service support ,
[2021-10-17 12:09] LABS: Absolute Neutrophil Count 9.4 X10^3/uL (2.0-7.7); Basophil# 0.02 X10^3/uL; Basophil% 0.2 % (0-1); Eosinophil# 0.27 X10^3/uL; Eosinophils% 2.3 % (0-5); Hematocrit 44.6 % (40-54); Hemoglobin 15.2 g/dL (13.0-16.5); Lymphocyte % 7.8 % (19-41); Mean Corp Hgb Conc 34.1 g/dL (32-36); Mean Corpuscular Hgb 32.9 pg (27.0-32.0); Mean Corpuscular Volume 96.5 fL (80-94); Mean Platelet Vol. 10.7 fl (6.2-12.0); Monocyte# 0.87 X10^3/uL; Monocyte% 7.6 % (0-10); NRBC Flagged by Analyzer 0 % (0-5); Neutrophil # 9.38 X10^3/uL (2.7-7.7); Neutrophil % 81.6 % (47-70); Platelet Count 275 K/mm3 (150-450); RBC Distribution Width CV 13.2 % (11.6-14.6); RBC Distribution Width SD 47.2 fl (35.1-43.9); Red Blood Count 4.62 M/mm3 (4.6-6.2); White Blood Count 11.5 K/mm3 (4.4-11.0)
[2021-10-17] MEDS: MethylPREDNISolone 125 MG/2 ML Vial IV (12:10)
--- NOTE | 2021-10-17 12:27 | EDS_ITS ---
HPI History of Present Illness Chief Complaint: Shortness of Breath Detail of Chief Complaint: Shortness of breath due to COPD Informant: patient and spouse/S.O. Onset/Context/Timing Onset: Days and Weeks Context: gradual and exertion Timing: Continuous and Waxes and wanes Quality: Positive for Dyspnea on exertion and Wheezing; Negative for Orthopnea and PND Current Severity: Mild Maximum Severity: Severe Worsened by: Exertion and Coughing; Not Worsened By Lying flat and other Relieved by: Nothing Associated Symptoms cough, rhinorrhea, chills, white sputum and green sputum; Negative for ear pain, fever, sore throat, subjective, sweats or clear sputum Chest Pain: Positive for None Narrative Narrative: Patient is an elderly male with history of COPD. Who presents because of shortness of breath which he believes is due to his COPD. He has been vaccinated for Covid with booster and influenza. He is not on oxygen at home. He states he cannot walk across the room without becoming significantly short of breath. He does have a cough which was initially productive of white- colored sputum. He has an productive of yellow-colored sputum last 2 days. He denies history of PE or DVT. He denies leg pain, swelling discoloration. He does feel bloated. That is been going on for some time. He denies nausea, vomiting or constipation. He denies any other symptoms. Patient apparently was admitted to the hospital. Was discharged with oxygen. Because the company the hospital uses it is not deal with the [place] and he did not have the funds to pay for oxygen he has been without oxygen. PE Risk Factors: Negative for Cancer, OCP + Smoking + > 35, Prior DVT or PE, Recent immobilization, Recent surgery and Recent travel Prior similar symptoms: Yes Recent Illness/Hospitalization: [facility] Medical History Acute maxillary sinusitis, unspecified Encounter for screening for COVID-19 Allergy/AdvReac Type Severity Reaction Status Date / Time No Known Allergies Allergy Verified 10/17/21 10:40 Social History (Updated 10/17/21 @ 12:[address] Facundo Sotomayor MD) household members: spouse Smoking Status: Current every day smoker tobacco type: cigarettes substance use type: does not use ROS ROS ED Constitutional Constitutional ED: Denies chills, fever(s), sweats or weight loss Eyes Eyes: Denies blurry vision, change in vision or diplopia ENT ENT ED: Reports rhinorrhea; Denies ear pain or sore throat Cardiovascular Cardiovascular: Denies chest pain, orthopnea, palpitations, paroxysmal nocturnal dyspnea or racing heartbeat Respiratory/Chest Respiratory/Chest: Reports cough, dyspnea, dyspnea on exertion and sputum; Denies orthopnea or paroxysmal nocturnal dyspnea Gastrointestinal Gastrointestinal: Reports other Details: Abdominal fullness and bloating ; Denies abdominal pain, constipation, diarrhea, nausea or vomiting Genitourinary Genitourinary ED: Denies dysuria, hematuria or urinary frequency Musculoskeletal Musculoskeletal: Denies arthralgias, back pain, myalgias or neck pain Integumentary Denies rash Neurologic Neurologic: Denies headache(s), paresthesias or weakness Endocrine Endocrinology: Denies polydipsia, polyphagia or polyuria Hematologic/Lymphatic Hematologic/Lymphatic: Denies easy bleeding or easy bruising EXAM Physical Exam Const Vital Signs: 10/17/21 10:38 10/17/21 10:40 10/17/21 11:12 Temperature 97.3 F L 97.3 F L Temperature Source Temporal Temporal Pulse Rate 80 80 Respiratory Rate 16 16 Respiratory Effort Respiratory Pattern Blood Pressure 114/75 114/75 Blood Pressure Mean 88 88 Pulse Ox 89 92 92 Oxygen Delivery Method Room Air Nasal Cannula Nasal Cannula Oxygen Flow Rate (L/min) 10/17/21 11:19 10/17/21 12:18 10/17/21 13:08 Temperature Temperature Source Pulse Rate 88 Respiratory Rate 16 Respiratory Effort Short of Breath Labored Respiratory Pattern Normal Blood Pressure 129/78 H Blood Pressure Mean 95 Pulse Ox 94 Oxygen Delivery Method Nasal Cannula Nasal Cannula Oxygen Flow Rate (L/min) 2 2 10/17/21 13:52 Temperature Temperature Source Pulse Rate Respiratory Rate Respiratory Effort Respiratory Pattern Blood Pressure Blood Pressure Mean Pulse Ox 92 Oxygen Delivery Method Room Air Oxygen Flow Rate (L/min) 2 Positive well nourished and well developed General Appearance ED: well developed; Negative for NAD or pallor HEENT Reports TM's clear and moist mucous membranes HEENT Narrative: No erythema or exudate posterior pharynx atraumatic; Negative for trauma or tenderness Tympanic Membrane ED: Yes TM's clear Eyes PERRL and EOMs intact bilaterally General Eye ED: Negative for pale conjunctiva or scleral icterus Neck no lymphadenopathy, supple, no meningeal signs and no JVD Resp No normal respiratory effort and No clear to auscultation bilaterally Auscultation: wheezes expiratory wheezes and throughout and diminished lung sounds Cardio regular rate, regular rhythm, S1 normal heart sound, S2 normal heart sound and no murmurs GI non-tender and no masses; Negative for non-distended GI Narrative: Abdomen is tympanic to percussion. There is no fluid wave. Auscultation: normoactive bowel sounds and hypoactive bowel sounds Palpation: soft Back/Spine no CVA tenderness and normal to inspection General Back: Negative for CVA tenderness or tenderness Extremity normal to inspection Extremity Narrative: There is no asymmetry, swelling, discoloration, leg vein distention, palpable cords or tenderness along the distribution of the deep venous system. General Extremety ED: Negative for edema or tenderness General Extremity: Negative for edema Neuro CN's II-XII intact bilaterally Sensorium / Orientation: alert Skin no wounds and No skin turgor normal General Skin Exam: Negative for jaundice or pallor Lesions: no lesions Rashes: no rashes MDM MDM MDM Narrative Medical decision making narrative: Patient presents with respiratory symptoms. This may represent COPD, COPD exacerbated by acute bronchitis versus Covid versus influenza versus commune acquired pneumonia. Since he is hypoxic and moving minimal air he was treated with Solu-Medrol, DuoNeb and albuterol. ABG was obtained to assess acid-base status as well as CO2 to rule out CO2 retention. Suspect patient's lactic acidosis due to hypoxia. He is not have an elevated white count. He does have pneumonia. Spoke with hospitalist who admit to [facility]. He does not meet any SIRS criteria. Lab Data Attestation: I reviewed the patient's lab results. Lab results narrative: Lactate is elevated most likely due to hypoxia. Glucose is elevated at 151. There is no history of diabetes. He was prescribed a burst of prednisone approximately 1 month ago. Would not expect this to be the cause. Radiologist felt these were infiltrates when comparing to prior films. In light of the patient being hypoxic on oxygen the levelly lactate will obtain blood cultures and treat for community-acquired pneumonia. Labs: Laboratory Results - last 24 hr 10/17/21 10/17/21 10/17/21 11:00 11:00 11:00 WBC 11.5 H RBC 4.62 Hgb 15.2 Hct 44.6 MCV 96.5 H MCH 32.9 H MCHC 34.1 RDW Std Deviation 47.2 H RDW Coeff of Tarik 13.2 Plt Count 275 MPV 10.7 Immature Gran % (Auto) 0.500 Neut % (Auto) 81.6 H Lymph % (Auto) 7.8 L [place] % (Auto) 7.6 Eos % (Auto) 2.3 Baso % (Auto) 0.2 Absolute Neuts (auto) 9.4 H Absolute Lymphs (auto) 0.90 Nucleated RBC % 0 Sodium 137 Potassium 4.4 Chloride 101 Carbon Dioxide 28.0 Anion Gap 8 BUN 12 Creatinine 1.05 Estim Creat Clear Calc 67.73 Est GFR (MDRD) Af Amer 89 Est GFR (MDRD) Non-Af 74 BUN/Creatinine Ratio 11.4 Glucose 151 H Lactic Acid 2.2 H* Calcium 9.7 Total Bilirubin 0.70 AST 39 H ALT 72 H Alkaline Phosphatase 84 Total Protein 7.8 Albumin 3.5 Globulin 4.3 H Albumin/Globulin Ratio 0.8 L ABG reveals no acid-base disturbance. Patient is hypoxic on oxygen. He will require admission for bilateral community-acquired pneumonia. Will obtain blood cultures prior to administration of antibiotics. ABG Data ABG results: ABG 10/17/21 13:11 Specimen Type ART Sample Site L Radial pH 7.45 Bicarbonate Actual 26.8 H Total CO2 28 Base Excess 3 H O2 Saturation 87 L ABG pCO2 38.9 ABG pO2 50 L Dat Test Positive O2 Delivery Device Cannula Liter Flow 2.0 Radiography Chest X-Ray - ED: 1 View and Read by ED Physician (Interpreted by me at 1249. Chronic changes with by basilar atelectasis versus infiltrates. No pneumothorax. Cardiac silhouette size normal. Perihilar regions unremarkable. Osseous structures are unremarkable.) Diagnostic Testing: Clinical Impression(s) from Imaging Studies Chest X-Ray 10/17/21 12:05 IMPRESSION: Patchy bibasilar pulmonary infiltrates. Electronically Signed: Anibal Jimenez MD at 12:59 EST , Service support , Critical Care Time Critical Care Time: Yes Critical care time (excluding procedures): 30-74 minutes (32), Including time spent: (History, physical, documentation, review of prior records, interpretation of laboratory results, initiation of therapy), Discussing w/Patie nt &/or Family/Research Development Manager, Discussing w/Consultants and Arranging Admission or Transfer Discharge Plan Dx/Rx/DC Orders Clinical Impression: Bilateral pneumonia, Acute respiratory failure with hypoxia, Acute exacerbation of chronic obstructive pulmonary disease, Acidosis, lactic Disposition Disposition: Acute Care [facility]
[2021-10-17 12:35] LABS: ALB/GLOB Ratio 0.8 RATIO (0.9-2.4); AST(SGOT) 39 U/L (15-37); Alanine Aminotransfer ALT/SGPT 72 U/L (16-61); Albumin, Serum 3.5 g/dL (3.2-5.0); Alkaline Phosphatase 84 U/L (45-117); Anion Gap 8 (5-15); BUN 12 mg/dL (7-18); BUN/Creat Ratio 11.4 RATIO (10-20); Calcium,Total 9.7 mg/dL (8.5-10.1); Chloride 101 mmol/L (98-107); Creatinine, Serum 1.05 mg/dL (0.70-1.30); EST Glomerular Filtration Rate 74 mL/min (>60); Est Glom Filt Rate - Afr Amer 89 mL/min (>60); Estimated Creatinine Clearance 67.73 ml/min; Globulin 4.3 g/dL (2.2-4.2); Glucose 151 mg/dL (74-106); Potassium 4.4 mmol/L (3.5-5.1); Protein, Total 7.8 g/dL (6.4-8.2); Sodium Level 137 mmol/L (136-145)
[2021-10-17] MEDS: Albuterol 2.5 MG/3 ML VIAL.NEB. INHALATION ×2 (12:37)
[2021-10-17] MEDS: Ipratropium/Albuterol Sulfate 3 ML AMPUL.NEB INHALATION ×2 (12:37→19:12)
[2021-10-17 12:43] LABS: Lactic Acid 2.2 mmol/L (0.4-1.9)
[2021-10-17 13:16] LABS: Allen Test Positive; Base Excess 3 mmol/L (-2 to +2); Bicarbonate 26.8 mmol/L (22-26); Blood Gas Specimen Type ART; O2 Delivery Device Cannula; PO2 50 mmHG (75-100); SITE L Radial; SO2 87 % (95-99); Total Carbon Dioxide 28 mmol/L; pCO2 38.9 mmHg (35-45); pH 7.45 (7.35-7.45)
--- NOTE | 2021-10-17 14:14 | PCM.HP.STD ---
Documented by User: Wojciech KHAN 10/17/21 14:38 HPI - General General Date of Admission: 10/17/21 Date of Service: 10/17/21 Chief Complaint: Shortness of breath HPI Narrative NAUN GARCÍA is a 71-year-old male who presents to the ED at [facility] on 10/17/2021 with a 2-week history of progressively worsening shortness of breath. Patient reports that he has a chronic history of shortness of breath, however notes that in the past 2 weeks his shortness of breath has gotten worse and he also notes yellowish sputum production. Patient also endorses fevers and chills about 1 week ago, denies any fevers or chills currently. Past medical history is significant for a 57-[id number]-[id number] smoking history and COPD. Vital signs obtained in the ED show a temperature of 97.3 ?F, HR of 80, BP of 114/75, HR 16 and patient was satting 89% on room air. CBC shows WBC is mildly elevated at 11.5, hemoglobin of 15.2 and platelets of 275. Arterial blood gas shows a pH of 7.45. CMP does not show any electrolyte abnormalities, lactic acid elevated at 2.2. Chest x-ray shows patchy bibasilar pulmonary infiltrates and hyperinflation of the lungs consistent with COPD. Heart is normal size. Rapid Covid is negative. Blood cultures were obtained in the ED and patient was given breathing treatments and antibiotics. [facility] Medical History Acute maxillary sinusitis, unspecified COPD (chronic obstructive pulmonary disease) Encounter for screening for COVID-19 Hypertension Smoking greater than 40 pack years Allergy/AdvReac Type Severity Reaction Status Date / Time No Known Allergies Allergy Verified 10/17/21 10:40 Family History (Updated 10/17/21 @ 14:23 by Wojciech KHAN) Father Cancer Heart disease Mother Heart disease Myocardial infarction Surgical History (Updated 10/17/21 @ 14:24 by Wojciech KHAN) H/O wrist surgery Hx of appendectomy Social History (Updated 10/17/21 @ 14:25 by Wojciech KHAN) household members: spouse Smoking Status: Former smoker quit date: 09/26/21 pack-years: 90 Tobacco: How many years used: 60 alcohol intake: former substance use type: does not use ROS Constitutional Constitutional: Reports fever(s); Denies anorexia, change in weight, chills, fatigue, malaise, night sweats, weakness or other Eyes Eyes: Denies blurry vision, change in eye color, change in vision, discharge from eye(s), double vision, erythema, eye pain, loss of vision or other ENT HEENT: Denies abnormal hearing, dysphagia, ear pain, epistaxis, headache(s), hearing loss, nasal congestion, nasal discharge, post nasal drip, sinus pressure, sore throat or other Cardiovascular Cardiovascular: Reports dyspnea on exertion and paroxysmal nocturnal dyspnea; Denies chest pain, claudication, edema, lightheadedness, orthopnea, palpitations, rapid heart rate, syncope or other Respiratory/Chest Respiratory/Chest: Reports cough, dyspnea, excessive phlegm production, productive cough, shortness of breath at rest and shortness of breath with exertion; Denies hemoptysis, wheezing or other Gastrointestinal Gastrointestinal: Denies abdominal pain, coffee ground emesis, constipation, diarrhea, dyspepsia, hematemesis, hematochezia, loose stools, melena, nausea, vomiting or other Genitourinary Genitourinary: Denies burning urination, difficulty urinating, dysuria, hematuria, nocturia, urinary frequency, urinary hesitancy, urinary incontinence, urinary urgency or other Musculoskeletal Musculoskeletal: Denies arthralgias, back pain, joint pain, joint stiffness, joint swelling, myalgias, neck pain or other Neurologic Neurologic: Denies abnormal gait, abnormal speech, confusion, disequilibrium, dizziness, focal weakness, headache(s), numbness, paresthesias, seizure-like activity, seizures, syncope, tingling, tremor(s) or other Psychiatric Psychiatric: Denies anxiety, depression, homicidal ideation, suicidal ideation or other Endocrine Endocrinology: Denies change in body appearance, cold intolerance, excessive sweating, heat intolerance, polydipsia, polyuria or other Hematologic/Lymphatic Hematologic/Lymphatic: Denies anemia, easy bleeding, easy bruising, lymphadenopathy or other Allergic/Immunologic Allergic/Immunologic: Denies rhinitis, hives, eczemia, asthma or other Vital Signs Vital Signs Vital Signs: 10/17/21 10:38 10/17/21 10:40 10/17/21 11:12 Temperature 97.3 F L 97.3 F L Temperature Source Temporal Temporal Pulse Rate 80 80 Respiratory Rate 16 16 Respiratory Effort Respiratory Pattern Blood Pressure 114/75 114/75 Blood Pressure Mean 88 88 Pulse Ox 89 92 92 Oxygen Delivery Method Room Air Nasal Cannula Nasal Cannula Oxygen Flow Rate (L/min) 10/17/21 11:19 10/17/21 12:18 10/17/21 13:08 Temperature Temperature Source Pulse Rate 88 Respiratory Rate 16 Respiratory Effort Short of Breath Labored Respiratory Pattern Normal Blood Pressure 129/78 H Blood Pressure Mean 95 Pulse Ox 94 Oxygen Delivery Method Nasal Cannula Nasal Cannula Oxygen Flow Rate (L/min) 2 2 10/17/21 13:52 10/17/21 14:02 Temperature 96.7 F L Temperature Source Temporal Pulse Rate 84 Respiratory Rate 16 Respiratory Effort Respiratory Pattern Blood Pressure 124/81 H Blood Pressure Mean 95 Pulse Ox 92 92 Oxygen Delivery Method Room Air Nasal Cannula Oxygen Flow Rate (L/min) 2 2 Weight Weight: 189 lb 9.561 oz Body Mass Index (BMI) 26.4 Physical Exam Const alert and oriented x3 General Appearance: cooperative HEENT normocephalic, head/scalp atraumatic and hearing grossly normal bilaterally Eyes PERRL, EOMs intact bilaterally and conjunctivae normal Neck no lymphadenopathy, supple and no JVD Resp normal respiratory effort, no retractions and no use of accessory muscles Auscultation: wheezes Cardio regular rate, regular rhythm, no murmurs and no JVD GI normal to inspection, nondistended, normoactive bowel sounds, soft to palpation and non-tender Extremity normal to inspection, full ROM and no clubbing, cyanosis or edema Skin no rashes or lesions noted, no wounds, skin turgor normal and no jaundice Neuro CN's II-XII intact bilaterally Psych affect normal Results Lab / Micro Data Result Diagrams: 10/17/21 11:00 10/17/21 11:00 Labs: Laboratory Results - last 24 hr 10/17/21 11:00: WBC 11.5 H, RBC 4.62, Hgb 15.2, Hct 44.6, MCV 96.5 H, MCH 32.9 H, MCHC 34.1, RDW Std Deviation 47.2 H, RDW Coeff of Tarik 13.2, Plt Count 275, MPV 10.7, Immature Gran % (Auto) 0.500, Neut % (Auto) 81.6 H, Lymph % (Auto) 7.8 L, Ritchie % (Auto) 7.6, Eos % (Auto) 2.3, Baso % (Auto) 0.2, Absolute Neuts (auto) 9.4 H, Absolute Lymphs (auto) 0.90, Nucleated RBC % 0 10/17/21 11:00: Sodium 137, Potassium 4.4, Chloride 101, Carbon Dioxide 28.0, Anion Gap 8, BUN 12, Creatinine 1.05, Estim Creat Clear Calc 67.73, Est GFR (MDRD) Af Amer 89, Est GFR (MDRD) Non-Af 74, BUN/Creatinine Ratio 11.4, Glucose 151 H, Calcium 9.7, Total Bilirubin 0.70, AST 39 H, ALT 72 H, Alkaline Phosphatase 84, Total Protein 7.8, Albumin 3.5, Globulin 4.3 H, Albumin/Globulin Ratio 0.8 L 10/17/21 11:00: Lactic Acid 2.2 H* Micro: Microbiology 10/17/21 12:12 Nasal Secretion SARS-CoV-2 Antigen (Rapid) - Final ABG Data ABG results: ABG 10/17/21 13:11 Specimen Type ART Sample Site L Radial pH 7.45 Bicarbonate Actual 26.8 H Total CO2 28 Base Excess 3 H O2 Saturation 87 L ABG pCO2 38.9 ABG pO2 50 L Dat Test Positive O2 Delivery Device Cannula Liter Flow 2.0 Radiology Impression Chest X-Ray 10/17/21 12:05 IMPRESSION: Patchy bibasilar pulmonary infiltrates. Electronically Signed: Anibal Jimenez MD at 12:59 EST , Service support , Assessment & Plan Assessment/Plan (1) Bilateral pneumonia: (2) Acute respiratory failure with hypoxia: (3) Acute exacerbation of chronic obstructive pulmonary disease: PLAN: Patient is a 71-year-old male who presents to the ED at [facility] on 10/17/2021 with a chief complaint of progressively worsening shortness of breath. Patient will be admitted for acute hypoxic respiratory failure secondary to bilateral pneumonia and COPD exacerbation. 1) acute hypoxic respiratory failure secondary to COPD exacerbation and bilateral pneumonia Presents with a 2-week history of progressively worsening shortness of breath. Patient also presents with prior history of fevers, chills and productive cough with yellow sputum. On arrival at the ED patient's oxygen saturations were 89% on room air. WBCs are mildly elevated at 11.5, lactic acid elevated at 2.2. Rapid Covid was negative and patient has been fully vaccinated for COVID-19 with booster and has received his influenza vaccine. Plan; admit to [facility], continue azithromycin and Rocephin, breathing treatments as needed, Covid PCR ordered, enhanced droplet precautions ordered, CBC and CMP in a.m., PT/OT eval ordered, case management consult ordered, O2 per protocol. Medications not reconciled at time of admission, therefore cannot hold/continue patient's chronic home medications. Advance care planning: Patient's ex-, Karma Cade, is patient's healthcare power of litigation attorney associate and is to make decisions for patient in the event that he cannot do so himself. CODE STATUS: Full code DVT prophylaxis - Lovenox Patient seen by Wojciech Wood PA-C, under the supervision of Dr. Weeks. Documented by User: Dr. Dulce Weeks MD 10/17/21 15:14 HPI - General General Date of Admission: 10/17/21 [facility] Medical History Acute maxillary sinusitis, unspecified COPD (chronic obstructive pulmonary disease) Encounter for screening for COVID-19 Hypertension Smoking greater than 40 pack years Allergy/AdvReac Type Severity Reaction Status Date / Time No Known Allergies Allergy Verified 10/17/21 10:40 Family History (Updated 10/17/21 @ 14:23 by Wojciech KHAN) Father Cancer Heart disease Mother Heart disease Myocardial infarction Surgical History (Updated 10/17/21 @ 14:24 by Wojciech KHAN) H/O wrist surgery Hx of appendectomy Social History (Updated 10/17/21 @ 14:25 by Wojciech KHAN) household members: spouse Smoking Status: Former smoker quit date: 09/26/21 pack-years: 90 Tobacco: How many years used: 60 alcohol intake: former substance use type: does not use Results Lab / Micro Data Result Diagrams: 10/17/21 11:00 10/17/21 11:00 Charges/Coding Addendum Addendum: This patient was seen in conjunction with BILL Gramajo. I have independently interviewed and examined the patient and reviewed pertinent historical, laboratory, and other data. Please refer to BILL Gramajo's note for his patient's presentation, findings, and recommendations. I have reviewed and his note and concur with his documentation 71-year-old with past medical history of COPD, hypertension not on oxygen at home who comes in with progressive shortness of breath ongoing for several weeks. Patient stated that he has been using the oxygen off his spouse intermittently. He admits to cough, productive of yellowish sputum. He stated that he has been vaccinated and has received his booster. He denied any fever or chills or loss of smell or taste. His vitals in the ED were stable except for SpO2 for 89% room air. CXR showed bilateral patchy pulmonary infiltrates. Physical Exam: Gen: Comfortable, not pale, not jaundiced, on 2L oxygen CVS:HS I +II, regular, no murmurs RESP: Diminished at lung bases, wheezes++ GI: BS present and normal, soft, nontender, no palpable organs EXT:No edema ASSESSMENT: 1. Acute hypoxic respiratory insufficiency 2. Acute COPD exacerbation 3. Community acquired pneumonia 4. Lactic acidosis 5. Type 2 DM Plan: Continue on oxygen IV ceftriaxone and azithromycin, IV solumedrol, Breathing treatments Urine legionella and streptococcal antigens ISS with blood glucose checks I discussed and explained in details the various types of CODE STATUS-full code, DNR CCA, DNR CC. Patient chose to be full code. Wants everything done deep into the cardiopulmonary arrest. Time spent discussing CODE STATUS 16 minutes Visit Charges Inpatient E&M: 11057 Init Hosp L3 Procedures Hospitalists Procedures: 29704 Advncd Care Plan 30 Min
[2021-10-17 16:07] LABS: Reflex Lactate? Y
[2021-10-17 18:23] LABS: Lactic Acid 1.9 mmol/L (0.4-1.9)
[2021-10-17 18:30] LABS: Bedside Glucose 232 mg/dL (70-110)
[2021-10-17] MEDS: 0.9% Normal Saline 1,000 ML 75 ML IV (18:35)
[2021-10-17] MEDS: Insulin Lispro 100 UNIT/ML INSULN.PEN SC (18:36)
--- NOTE | 2021-10-17 19:20 | PCS.PANDOC ---
PANDEMIC DOCUMENTATION INITIATED: Date: 06/24/2021 Time: 190
[2021-10-17] MEDS: Ceftriaxone 1 GM/50 ML BAG IV (20:59)
--- NOTE | 2021-10-17 21:04 | NURSING ---
pt states he takes a bunch of meds at home pt cannot recall meds, pt called but no answer. pt states she can bring in list tomorrow AM. pt refused insulin on eloy DUDLEY because he takes pills at home and not shots and I dont want to take a shot
[2021-10-17 22:31] LABS: Bedside Glucose 291 mg/dL (70-110)
[2021-10-18] VITALS (8 sets, daily range): BP systolic 135–139; BP diastolic 78–82; PULSE 69–77; RESP 16–21; TEMP 36.4–36.6; O2SAT 87–94
[2021-10-18] MEDS: Albuterol 2.5 MG/3 ML VIAL.NEB. INHALATION (03:55)
[2021-10-18] MEDS: 0.9% Normal Saline 1,000 ML 75 ML IV (06:07)
[2021-10-18 06:22] LABS: Absolute Lymphocyte Count 0.96 X10^3/uL (0.83-4.51); Absolute Neutrophil Count 10.4 X10^3/uL (2.0-7.7); Basophil# 0.01 X10^3/uL; Basophil% 0.1 % (0-1); Hematocrit 41.7 % (40-54); Lymphocyte # 0.96 X10^3/ul (0.83-4.51); Lymphocyte % 8.1 % (19-41); Mean Corp Hgb Conc 33.6 g/dL (32-36); Mean Corpuscular Hgb 32.5 pg (27.0-32.0); Mean Corpuscular Volume 96.8 fL (80-94); Mean Platelet Vol. 10.2 fl (6.2-12.0); Monocyte# 0.43 X10^3/uL; Monocyte% 3.6 % (0-10); NRBC Flagged by Analyzer 0 % (0-5); Neutrophil # 10.35 X10^3/uL (2.7-7.7); Neutrophil % 87.6 % (47-70); Platelet Count 276 K/mm3 (150-450); RBC Distribution Width CV 12.8 % (11.6-14.6); Red Blood Count 4.31 M/mm3 (4.6-6.2); White Blood Count 11.8 K/mm3 (4.4-11.0)
[2021-10-18 06:41] LABS: Bedside Glucose 210 mg/dL (70-110)
[2021-10-18 06:59] LABS: ALB/GLOB Ratio 0.8 RATIO (0.9-2.4); AST(SGOT) 26 U/L (15-37); Alanine Aminotransfer ALT/SGPT 63 U/L (16-61); Albumin, Serum 3.3 g/dL (3.2-5.0); Alkaline Phosphatase 83 U/L (45-117); Anion Gap 9 (5-15); BUN 18 mg/dL (7-18); BUN/Creat Ratio 17.8 RATIO (10-20); Calcium,Total 9.1 mg/dL (8.5-10.1); Chloride 102 mmol/L (98-107); Creatinine, Serum 1.01 mg/dL (0.70-1.30); EST Glomerular Filtration Rate 77 mL/min (>60); Est Glom Filt Rate - Afr Amer 93 mL/min (>60); Estimated Creatinine Clearance 70.41 ml/min; Globulin 4.2 g/dL (2.2-4.2); Glucose 209 mg/dL (74-106); Potassium 4.3 mmol/L (3.5-5.1); Protein, Total 7.5 g/dL (6.4-8.2); Sodium Level 136 mmol/L (136-145)
[2021-10-18] MEDS: Ipratropium/Albuterol Sulfate 3 ML AMPUL.NEB INHALATION ×2 (07:04→10:38)
[2021-10-18] MEDS: Ceftriaxone 1 GM/50 ML BAG IV (10:32)
[2021-10-18] MEDS: Insulin Lispro 100 UNIT/ML INSULN.PEN SC (11:26)
--- NOTE | 2021-10-18 11:27 | PCM.DC ---
Discharge Instructions Diet Discharge Diet: No restrictions Activity Discharge Activity: Return to Normal Activity Weight Bearing Status: Weight bearing as tolerated Dressing / Incision Call your doctor if you observe: Fever of 101 or Higher, Numbness or Tingling, Shortness of breath, Dizziness, Chest pain, Increased palpitations (irregular heartbeat) and Calf discomfort Follow Up Care Please Follow Up With: Primary care provider When: Within the next two weeks. Test Results: Test results from this visit will be discussed in further detail at your follow-up appointment, if applicable. Discharge Plan Admission Admit Date/Time: 10/17/21 13:56 Primary Reason for Your Visit: Shortness of breath Attending Provider: Dulce Weeks Primary Care Provider: [place] [place] Discharge Orders/Prescriptions Prescriptions: New albuterol sulfate [Ventolin HFA] 90 mcg/actuation HFA aerosol inhaler 1 inh inhalation Q6H Qty: 8.5 RF: 0 amoxicillin-pot clavulanate [Augmentin] 875-125 mg tablet 1 tab PO BID Qty: 14 RF: 0 prednisone 10 mg tablet See Taper mg PO DAILY Qty: 30 RF: 0 Referrals / Follow Up: Osvaldo Merritt MD [STAFF PHYSICIAN] - Within 2 Weeks (For COPD care.) [place] [place] [Primary Care Provider] - Within 2 Weeks Disposition Disposition (needs filled in before D/C Order can be placed): Home, Self Care
--- NOTE | 2021-10-18 12:00 | CASEMGMT ---
Addendum entered by Daniel Hill 10/18/21 17:16: 1630: JAY RAO informed [employer] has not delivered portable O2 tank to pt's room yet. TC to Karma. Karma states she is at pt's home and [employer] is there now, setting up home O2. She states they delivered the portable tank to her and she will bring it in when she comes to get pt to take him home. Karma requests RN JANINA provide [facility] to the [facility] for [facility]. JAY ROA re-inforced w/her this would need to come from PCP at f/u appt, as O2 pt is getting today is being billed thru [facility]. She states she just spoke w/the [facility] and they were requesting information. JAY ROA placed call to [place] respiratory therapist. She confirms w/JAY ROA that they do not need any information today since pt getting O2 thru [facility] and to have pt f/u w/PCP to provide this info to get O2 thru the [facility], if pt chooses to do so. TC back to Karma and she was made aware of same. She voices appreciation and denies having further questions. Addendum entered by Daniel Hill 10/18/21 17:14: 1240: Per [facility] pharmacy total cost of meds is $80.02 for Albuterol, Prednisone, and Amoxicillin. Pt made aware. He states he already has Albuterol aerosal at home. Karma confirms he does have Albuterol aerosal and also Albuterol inhalers at home and pt will not need to get more today. Cost for Prednisone and Amoxillin will be approx $32. Pt states this is affordable. TC to [facility] retail pharmacy and notified pt will not be picking up the Albuterol. Original Note: JAY ROA [employer] CM to room to meet with patient for initial transition planning/care coordination assessment. JAY ROA introduced self and role at [facility]. Pt voices understanding and consents to assessment at this time. Pt sitting up in bed in no distress at this time. Sig other, Karma, @ bedside. Pt is A/O at this time and answers all questions appropriately. Care providers, pharmacy, and demographics verified/updated at this time. PCP: [facility]. Dr Tash Pope Specialists: none currently. Pt plans to f/u with Dr René after d/c Preferred Pharmacy: [facility]. Pt inquiring about cost of meds. RN JANINA informed him bose check can be done and he will be notified of cost. Insurance: [place], [facility] Pres[facility] Benefit: [facility] Living Will/HPOA: Pt does not currently have LW/HCPOA. Karma states they are currently working on having this done and pt declines further info at this time. LNOK: Sig other, Karma Cade Living Arrangements: Lives w/Karma in one-story home w/basement. No steps to enter thru the back entrance. Independent w/ADL's. Pt and Karma share home mgt tasks. Transportation: Pt states drives self and states no transportation concerns at this time. Karma also drives DME: States has the following DME: nebulizer, functioning glucometer w/supplies. No home O2. Pt qualifies for O2 @ 2l/m @ rest and 4l/m w/exertion.Pt and Karma state willing to have O2 billed thru [facility]. Provided w/list of local DME companies. 1st choice is [employer]. Script faxed to [facility]. TC to Karen and she was notified of new Home O2 order, that pt will be discharging home today and will need portable O2 tank delivered to [facility]. She states ETA of O2 tank w/in next 2 hrs. Pt made aware. Pt and Karma made aware to [facility] with [facility] at next appt re: getting additional O2 thru the [facility] if pt needs O2 chronically so pt can get additional months at no cost. They voice understanding. Pt and Karma state no need for further DME at this time. HHC/SNF: No hx of either and pt denies need for HHC. Pt wishes to return home and states has no concerns with going home at time of discharge. Pt voices no further concerns/needs at this time. Advised pt to ask for CM if any further questions/concerns/needs arise. Voices understanding. PLAN: Home w/significant other. Pt will go home w/O2 thru [facility] JAY ROA
[2021-10-18 12:05] LABS: Bedside Glucose 335 mg/dL (70-110)
--- NOTE | 2021-10-18 12:55 | DS.PCM_ITS ---
Documented by User: Wojciech KHAN 10/18/21 13:04 Providers Date of Admission: 10/17/21 Primary Care Physician: [facility] Reason For Visit: PNEUMONIA Diagnosis Discharge Diagnosis (1) Bilateral pneumonia: Status: Acute Code(s): J18.9 - Pneumonia, unspecified organism (2) Acute respiratory failure with hypoxia: Status: Acute Code(s): J96.01 - Acute respiratory failure with hypoxia (3) Acute exacerbation of chronic obstructive pulmonary disease: Status: Chronic Code(s): J44.1 - Chronic obstructive pulmonary disease with (acute) exacerbation Medications at Discharge Home Medications albuterol sulfate [Ventolin HFA] 1 inh INHALATION Q6H #8.5 g 10/18/21 amoxicillin-pot clavulanate [Augmentin] 1 tab PO BID #14 tab 10/18/21 prednisone See Taper PO DAILY #30 tab 10/18/21 Hospital Course Summary of Care Provided Minutes Spent on Discharge: 35 Hospital Course: Patient is a 71-year-old male who was who was admitted to the hospital on 10/17/2021 for acute hypoxic respiratory failure secondary to COPD exacerbation and bilateral pneumonia. Patient was initiated on steroids and breathing treatments as well as placed on azithromycin and Rocephin for pneumonia. Patient has been fully vaccinated for COVID-19 and influenza. Patient had also received his COVID-19 booster. Initial rapid Covid was negative, however due to patient respiratory complaints as well as fevers/chills with some diarrhea, a Covid PCR was obtained. Covid PCR negative. Patient's respiratory status and symptoms significantly improved overnight and patient's overall course improved much quicker than expected. Due to patient improvement, patient was discharged on Augmentin, prednisone taper as well as an as needed inhaler. Patient did qualify for home oxygen as he was satting 87% on 3 L via nasal cannula. Patient was established on home oxygen prescription at 4 L. Patient is to follow-up with primary care provider and pulmonology within the next 2 weeks. Patient seen by Wojciech Wood PA-C, under the supervision of Dr. Weeks. Physical Exam Narrative Patient is a 71-year-old male comfortably resting in bed, alert and orient x3. Patient reports significant improvement in his shortness of breath and cough from admission. Denies development of any new symptoms overnight. Does not appear in acute distress. Const alert, oriented x3 and no apparent distress HEENT normocephalic, head/scalp atraumatic and hearing grossly normal bilaterally Eyes PERRL, EOMs intact bilaterally and conjunctivae normal Neck no lymphadenopathy, supple and no JVD Resp normal respiratory effort, no retractions and no use of accessory muscles Resp Narrative: Mild wheezing appreciated on auscultation, although this has improved from admission. Cardio regular rate, regular rhythm, no murmurs and no JVD GI normal to inspection, nondistended, normoactive bowel sounds, soft to palpation and non-tender Extremity normal to inspection, full ROM and no clubbing, cyanosis or edema Skin no rashes or lesions noted, no wounds and skin turgor normal Neuro CN's II-XII intact bilaterally Psych affect normal Weight / BMI Weight Weight: 189 lb 9.561 oz Body Mass Index (BMI) 26.4 ABG / Lab / Microbiology Data Result Diagrams: 10/18/21 05:43 10/18/21 05:43 Laboratory: Laboratory Results - last 24 hr 10/17/21 14:46: COVID-19 (RADHA) Not Detected 10/17/21 17:40: Lactic Acid 1.9 10/17/21 18:02: POC Glucose 232 H 10/17/21 20:50: POC Glucose 291 H 10/18/21 05:43: WBC 11.8 H, RBC 4.31 L, Hgb 14.0, Hct 41.7, MCV 96.8 H, MCH 32.5 H, MCHC 33.6, RDW Std Deviation 46.0 H, RDW Coeff of Tarik 12.8, Plt Count 276, MPV 10.2, Immature Gran % (Auto) 0.600, Neut % (Auto) 87.6 H, Lymph % (Auto) 8.1 L, [place] % (Auto) 3.6, Eos % (Auto) 0.0, Baso % (Auto) 0.1, Absolute Neuts (auto) 10.4 H, Absolute Lymphs (auto) 0.96, Nucleated RBC % 0 10/18/21 05:43: Sodium 136, Potassium 4.3, Chloride 102, Carbon Dioxide 25.0, Anion Gap 9, BUN 18, Creatinine 1.01, Estim Creat Clear Calc 70.41, Est GFR (MDRD) Af Amer 93, Est GFR (MDRD) Non-Af 77, BUN/Creatinine Ratio 17.8, Glucose 209 H, Calcium 9.1, Total Bilirubin 0.30, AST 26, ALT 63 H, Alkaline Phosphatase 83, Total Protein 7.5, Albumin 3.3, Globulin 4.2, Albumin/Globulin Ratio 0.8 L 10/18/21 06:06: POC Glucose 210 H 10/18/21 11:21: POC Glucose 335 H Microbiology: Microbiology 10/17/21 12:12 Nasal Secretion SARS-CoV-2 Antigen (Rapid) - Final ABG: ABG 10/17/21 13:11 Specimen Type ART Sample Site L Radial pH 7.45 Bicarbonate Actual 26.8 H Total CO2 28 Base Excess 3 H O2 Saturation 87 L ABG pCO2 38.9 ABG pO2 50 L Dat Test Positive O2 Delivery Device Cannula Liter Flow 2.0 Radiography Diagnostic Testing: Radiology Impression Chest X-Ray 10/17/21 12:05 IMPRESSION: Patchy bibasilar pulmonary infiltrates. Electronically Signed: Anibal Jimenez MD at 12:59 EST , Service support , D/C Instructions Discharge Diet: No restrictions Weight Bearing Status: Weight bearing as tolerated Call your doctor if you observe: Fever of 101 or Higher, Numbness or Tingling, Shortness of breath, Dizziness, Chest pain, Increased palpitations (irregular heartbeat) and Calf discomfort Please Follow Up With: Primary care provider When: Within the next two weeks. Meaningful Use Info Meaningful Use Diagnoses (Choose all that apply): None applicable Discharge Plan Admission Admit Date/Time: 10/17/21 13:56 Primary Reason for Your Visit: Shortness of breath Attending Provider: Dulce Weeks Primary Care Provider: [facility] Discharge Orders/Prescriptions Prescriptions: New albuterol sulfate [Ventolin HFA] 90 mcg/actuation HFA aerosol inhaler 1 inh inhalation Q6H Qty: 8.5 RF: 0 amoxicillin-pot clavulanate [Augmentin] 875-125 mg tablet 1 tab PO BID Qty: 14 RF: 0 prednisone 10 mg tablet See Taper mg PO DAILY Qty: 30 RF: 0 Referrals / Follow Up: Osvaldo Merritt MD [STAFF PHYSICIAN] - Within 2 Weeks (For COPD care.) [place] [Primary Care Provider] - Within 2 Weeks Disposition Disposition (needs filled in before D/C Order can be placed): Home, Self Care Documented by User: Dr. Dulce Weeks MD 10/18/21 14:27 Providers Date of Admission: 10/17/21 Reason For Visit: PNEUMONIA Medications at Discharge Home Medications albuterol sulfate [Ventolin HFA] 1 inh INHALATION Q6H #8.5 g 10/18/21 amoxicillin-pot clavulanate [Augmentin] 1 tab PO BID #14 tab 10/18/21 prednisone See Taper PO DAILY #30 tab 10/18/21 ABG / Lab / Microbiology Data Result Diagrams: 10/18/21 05:43 10/18/21 05:43 Discharge Plan Admission Admit Date/Time: 10/17/21 13:56 Primary Reason for Your Visit: Shortness of breath Attending Provider: Dulce Weeks Primary Care Provider: [place] [place] Discharge Orders/Prescriptions Prescriptions: New albuterol sulfate [Ventolin HFA] 90 mcg/actuation HFA aerosol inhaler 1 inh inhalation Q6H Qty: 8.5 RF: 0 amoxicillin-pot clavulanate [Augmentin] 875-125 mg tablet 1 tab PO BID Qty: 14 RF: 0 prednisone 10 mg tablet See Taper mg PO DAILY Qty: 30 RF: 0 Referrals / Follow Up: Osvaldo Merritt MD [STAFF PHYSICIAN] - Within 2 Weeks (For COPD care.) [place] [place] [Primary Care Provider] - Within 2 Weeks Disposition Disposition (needs filled in before D/C Order can be placed): Home, Self Care Charges/Coding Addendum Addendum: This patient was seen in conjunction with BILL Gramajo. I have independently interviewed and examined the patient and reviewed pertinent historical, laboratory, and other data. Please refer to BILL Gramajo's note for his patient's presentation, findings, and recommendations. I have reviewed and his note and concur with his documentation 71-year-old with past medical history of COPD, hypertension not on oxygen at home who comes in with progressive shortness of breath ongoing for several weeks. Patient stated that he has been using the oxygen off his spouse intermittently. He admits to cough, productive of yellowish sputum. He stated that he has been vaccinated and has received his booster. He denied any fever or chills or loss of smell or taste. His vitals in the ED were stable except for SpO2 for 89% room air. CXR showed bilateral patchy pulmonary infiltrates. Patient was admitted to the [facility] floor and started on IV ceftriaxone and azithromycin. He was also managed on IV Solu-Medrol for COPD exacerbation. Patient remained on 3 L of oxygen. He was discharged on the same amount of oxygen. He qualified. He was discharged also on a week of Augmentin, prednisone taper and albuterol inhaler. He will be followed by pulmonology and his primary care doctor within 2 weeks. Physical Exam: Gen: Comfortable, not pale, not jaundiced, on 2L oxygen CVS:HS I +II, regular, no murmurs RESP: Diminished at lung bases GI: BS present and normal, soft, nontender, no palpable organs EXT:No edema Visit Charges Inpatient E&M: 43568 Disch Hosp
[2021-10-18] MEDS: 0.9% Saline Lock 10 ML Syringe IV (13:38)
== END 2021-10-18 16:45 | disposition home or self-care (01) | DRG 190 ==
LOC: ED 13:45 → MS3 14:20
PROVIDERS: Admitting Provider Internal Medicine; Emergency Provider Emergency Medicine; Visit Provider Internal Medicine
DX: J44.0 Chronic obstructive pulmonary disease with (acute) lower respiratory infection (principal); J18.9 Pneumonia, unspecified organism; J96.01 Acute respiratory failure with hypoxia; J44.1 Chronic obstructive pulmonary disease with (acute) exacerbation; I10 Essential (primary) hypertension; F17.210 Nicotine dependence, cigarettes, uncomplicated
CPT/HCPCS: 36415; 36600; 71045; 80053; 82803; 82962; 83605; 85025; 87040; 87426; 87633; 87635; 93005; 94640; 99251; 99285; 99406; J7030; U0005; A4216; G0463; J0696; U0003

== ENCOUNTER 2021-12-23 08:41 | Emergency (ER) | payer OTHER, SELFPAY ==
[2021-12-23] VITALS (10 sets, daily range): BP systolic 118–172; BP diastolic 81–130; PULSE 59–95; RESP 18–36; TEMP 36.2–36.5; O2SAT 83–97; BMI 32.1
--- NOTE | 2021-12-23 08:52 | EKG12_ITS ---
Test Reason : SOB Blood Pressure : / mmHG Vent. Rate : 076 BPM Atrial Rate : 076 BPM P-R Int : 178 ms QRS Dur : 074 ms QT Int : 380 ms P-R-T Axes : 049 052 077 degrees QTc Int : 427 ms Sinus rhythm with occasional Premature ventricular complexes and Premature atrial complexes Otherwise normal ECG Confirmed by STEVEN PRATHER, ANA ([id number]), brands editor TERA CAMPBELL ([id number]) on 12/25/2021 11:26:05 AM Referred By: CNADY Confirmed By:ANA HARRIS MD
[2021-12-23] MEDS: Albuterol 2.5 MG/3 ML VIAL.NEB. INHALATION ×4 (08:55→12:19)
[2021-12-23] MEDS: Ipratropium/Albuterol Sulfate 3 ML AMPUL.NEB INHALATION ×2 (08:55→12:19)
--- NOTE | 2021-12-23 08:59 | ED.VIS.DYS ---
HPI History of Present Illness Chief Complaint: Shortness of Breath Informant: patient and spouse/S.O. Onset/Context/Timing Onset: Days Context: gradual Timing: Continuous Quality: Positive for Wheezing Current Severity: Moderate Maximum Severity: Moderate Worsened by: Exertion and Coughing Relieved by: Oxygen Associated Symptoms cough and white sputum; Negative for fever Chest Pain: Positive for None Narrative Narrative: 71-year-old male history of COPD on intermittent oxygen at home. Also history of diabetes and hypertension. Patient states he has been short of breath for a week. He has a chronic cough usually of clear to white sputum as well as having now. Denies any hemoptysis. No chest pains he is having is with coughing. He uses aerosols at home. Is currently on no steroids. He denies any fever. He denies any leg pain or swelling. No history of DVT or PE. He was hospitalized around October for COPD flare. Patient is vaccinated against COVID. PE Risk Factors: Negative for Cancer, OCP + Smoking + > 35, Prior DVT or PE, Recent immobilization, Recent surgery and Recent travel Prior similar symptoms: Yes Recent Illness/Hospitalization: Yes PFSH PFSH Medical History Acute maxillary sinusitis, unspecified Bilateral pneumonia COPD (chronic obstructive pulmonary disease) Encounter for screening for COVID-19 Hypertension Smoking greater than 40 pack years Home Medications albuterol sulfate [Ventolin HFA] 1 inh INHALATION Q6H #8.5 g 10/18/21 [Rx Last Taken Unknown] amlodipine 10 mg PO DAILY 12/23/21 [History Last Taken Unknown] carvedilol 12.5 mg PO DAILY 12/23/21 [History Last Taken Unknown] lactobacillus combination no.4 [Probiotic] 3,000 mmu cells PO DAILY 12/23/21 [History Last Taken Unknown] melatonin 3 mg PO QHS 12/23/21 [History Last Taken Unknown] multivitamin 1 tab PO DAILY 12/23/21 [History Last Taken Unknown] omeprazole 20 mg PO DAILY 12/23/21 [History Last Taken Unknown] pravastatin 80 mg PO QHS 12/23/21 [History Last Taken Unknown] prednisone 40 mg PO DAILY 10 Days #20 tab 12/23/21 [Rx Last Taken Unknown] tamsulosin 0.4 mg PO QHS 12/23/21 [History Last Taken Unknown] Allergy/AdvReac Type Severity Reaction Status Date / Time No Known Allergies Allergy Verified 12/23/21 08:41 Family History Father Cancer Heart disease Mother Heart disease Myocardial infarction Surgical History H/O wrist surgery Hx of appendectomy Social History household members: spouse Smoking Status: Former smoker quit date: 09/26/21 pack-years: 90 Tobacco: How many years used: 60 alcohol intake: former substance use type: does not use ROS ROS ED ROS Narrative Cough. Shortness of breath. Review of Systems ROS Unobtainable: Denies due to encephalopathy Constitutional Constitutional ED: Denies chills or fever(s) Eyes Eyes: Denies blurry vision or change in vision ENT ENT ED: Denies ear pain Cardiovascular Cardiovascular: Denies chest pain or palpitations Respiratory/Chest Respiratory/Chest: Denies cough or dyspnea Gastrointestinal Gastrointestinal: Denies abdominal pain, nausea or vomiting Genitourinary Genitourinary ED: Denies dysuria or hematuria Musculoskeletal Musculoskeletal: Denies arthralgias or myalgias Integumentary Denies abscess or rash Neurologic Neurologic: Denies headache(s) Psychiatric Psychiatric: Denies depression Endocrine Endocrinology: Denies polyuria Hematologic/Lymphatic Hematologic/Lymphatic: Denies easy bruising Allergic/Immunologic Allergic/Immunologic ED: Denies urticaria EXAM Physical Exam Narrative Exam Narrative: 71-year-old male mild to moderate respiratory distress. Vital signs are stable his initial blood pressure is 1 seven 2/1 30s afebrile. His initial pulse ox is 83% on nonrebreather. He is also hypoxic. H EENT exam unremarkable. Moist remembers. Neck nontender no JVD no lymphadenopathy. Lungs diminished breath sounds bilaterally. Prolonged expiratory phase bilaterally. Expiratory wheezes bilaterally. No rales. No rhonchi. Heart regular rhythm rate about 95 no murmur. Chest wall nontender. No crepitance. Abdomen soft nontender normal bowel sounds no peritoneal signs. Moving all 4 extremities. Nontender no edema. Neurologically is awake and alert. Answering questions following commands. Const Vital Signs: 12/23/21 08:41 12/23/21 08:44 12/23/21 08:52 Temperature 97.7 F L Temperature Source Temporal Pulse Rate 95 77 Respiratory Rate 36 H 21 H Respiratory Effort Respiratory Depth Respiratory Pattern Tachypnea Blood Pressure 172/130 H Blood Pressure Mean 144 Pulse Ox 83 97 Oxygen Delivery Method Non-Rebreather Non-Rebreather Oxygen Flow Rate (L/min) 12/23/21 08:56 12/23/21 09:19 12/23/21 10:09 Temperature 97.1 F L Temperature Source Temporal Pulse Rate 70 Respiratory Rate 18 Respiratory Effort Short of Breath Labored Accessory Muscle Use Retracting Respiratory Depth Normal Respiratory Pattern Normal Blood Pressure 118/91 H Blood Pressure Mean 100 Pulse Ox 94 96 Oxygen Delivery Method Nasal Cannula Nasal Cannula Oxygen Flow Rate (L/min) 6 2 12/23/21 11:00 12/23/21 11:19 Temperature 97.1 F L Temperature Source Temporal Pulse Rate 59 L Respiratory Rate 19 H Respiratory Effort Respiratory Depth Respiratory Pattern Blood Pressure 123/102 H Blood Pressure Mean 109 Pulse Ox 97 96 Oxygen Delivery Method Nasal Cannula Nasal Cannula Oxygen Flow Rate (L/min) 2 6 Positive well nourished and well developed; Negative for obese, cachectic, contractures or unkempt General Appearance ED: well developed; Negative for unkempt, cachectic, contractures, NAD or pallor Nutritional Appearance: Negative for cachectic or obese HEENT Reports moist mucous membranes atraumatic; Negative for trauma or tenderness Eyes PERRL and EOMs intact bilaterally Neck no lymphadenopathy, supple, no meningeal signs and no JVD General: Negative for tenderness Resp No normal respiratory effort and No clear to auscultation bilaterally Auscultation: wheezes and diminished lung sounds; Negative for rales or rhonchi Cardio regular rate, regular rhythm, S1 normal heart sound, S2 normal heart sound and no murmurs GI non-tender, non-distended and no masses Auscultation: normoactive bowel sounds; Negative for hyperactive bowel sounds or hypoactive bowel sounds Palpation: soft and rebound tenderness present; Negative for tender or guarding Back/Spine no CVA tenderness and normal to inspection General Back: Negative for CVA tenderness or tenderness Extremity normal to inspection General Extremety ED: Negative for edema or tenderness General Extremity: Negative for edema Neuro oriented x3 Sensorium / Orientation: alert, oriented to person and oriented to place; Negative for oriented to time, orientation impaired, confused, lethargic or stuporous Motor Exam: strength 5/5 throughout Psych mental status grossly normal Appearance: Negative for unkempt Attitude: No agitated Mood & Affect: Negative for depressed or tearful Thought Process: normal thought process Skin no wounds General Skin Exam: Negative for jaundice or pallor Lesions: no lesions Rashes: no rashes MDM MDM MDM Narrative Medical decision making narrative: 71-year-old male mild to moderate respiratory distress and hypoxia. Suspect secondary to COPD exacerbation rule out pneumonia, Covid, etc.. He will be treated with aerosols both DuoNeb and albuterol. IV Solu-Medrol. And had extensive work-up. Repeat exam at 10:27 AM patient is doing much better. His breathing is much improved. He still has expiratory wheezes bilaterally. He still requiring O2. I discussed all test results with patient and his are comfortable with him being admitted for further breathing treatments and evaluation. I spoke to the hospitalist. Patient's most recent admission for COPD flare was in the hospital less than 24 hours. They wanted me to discharge the patient home on steroids. I again discussed that with the patient and his and they are comfortable with the plan. He does have oxygen at home. He will return if worse. Lab Data Attestation: I reviewed the patient's lab results. Lab results narrative: CBC shows a white count of 10. H&H is 16 and 49. Platelets 317. Electrolytes unremarkable gap of 4 normal BUN and creatinine. Glucose 169. Troponin 9. Chest x-ray chronic changes. No acute process. Labs: Laboratory Results - last 24 hr 12/23/21 12/23/21 08:45 08:45 WBC 10.1 RBC 4.98 Hgb 16.5 Hct 49.2 MCV 98.8 H MCH 33.1 H MCHC 33.5 RDW Std Deviation 50.1 H RDW Coeff of Tarik 13.8 Plt Count 317 MPV 10.2 Immature Gran % (Auto) 0.200 Neut % (Auto) 55.6 Lymph % (Auto) 21.6 [place] % (Auto) 9.4 Eos % (Auto) 12.7 H Baso % (Auto) 0.5 Absolute Neuts (auto) 5.6 Absolute Lymphs (auto) 2.19 Nucleated RBC % 0 Sodium 137 Potassium 4.0 Chloride 102 Carbon Dioxide 31.0 Anion Gap 4 L BUN 10 Creatinine 1.07 Estim Creat Clear Calc 62.40 Est GFR (MDRD) Af Amer 87 Est GFR (MDRD) Non-Af 72 BUN/Creatinine Ratio 9.3 L Glucose 169 H Calcium 9.6 Troponin I High Sens 9 Radiography Chest X-Ray - ED: 1 View, Read by ED Physician, Heart, Lungs, Mediastinum, Bony Structures, No Acute Disease and Chronic Changes Diagnostic Testing: Clinical Impression(s) from Imaging Studies Chest X-Ray 12/23/21 09:23 IMPRESSION: Hyperinflation. The lungs are clear. Electronically Signed: Anibal Jimenez MD at 9:57 EST , Rhythm Strip Rhythm Strip: Sinus Rhythm Rate: 76 Ectopy: PVC(s) EKG Initial EKG: Attestation: I personally reviewed and interpreted this EKG as follows: Interpretation: Sinus Rhythm and No Acute Injury Pattern Comments: Normal sinus rhythm rate of 76 no acute signs of ND nor ischemia. Prior EKG tracings: not available for review Discharge Plan Triage Chief Complaint: Shortness of Breath ED Provider: Rodolfo Aponte Dx/Rx/DC Orders Clinical Impression: Acute dyspnea, Hypoxia, Acute exacerbation of chronic obstructive pulmonary disease, History of diabetes mellitus Instructions: ED COPD Flare Prescriptions: New prednisone 20 mg tablet 40 mg PO DAILY 10 Days Qty: 20 RF: 0 No Action albuterol sulfate [Ventolin HFA] 90 mcg/actuation HFA aerosol inhaler 1 inh inhalation Q6H Qty: 8.5 RF: 0 multivitamin Tablet 1 tab PO DAILY RF: 0 carvedilol 12.5 mg Tablet 12.5 mg PO DAILY RF: 0 melatonin 3 mg Tablet 3 mg PO QHS RF: 0 pravastatin 80 mg Tablet 80 mg PO QHS RF: 0 tamsulosin 0.4 mg Capsule 0.4 mg PO QHS RF: 0 amlodipine 10 mg Tablet 10 mg PO DAILY RF: 0 omeprazole 20 mg Tablet,Delayed Release (Dr/Ec) 20 mg PO DAILY RF: 0 Probiotic 3 billion cell Capsule 3,000 mmu cells PO DAILY RF: 0 Primary Care Provider: [facility] Referrals: Osvaldo Merritt MD [STAFF PHYSICIAN] - As soon as possible [facility],[place] [Primary Care Provider] - As soon as possible Activity Restrictions/Additional Instructions: Prednisone 40 mg a day for the next 10 days starting tomorrow. We gave you a dose of steroid today. Use your nebulizer inhalers as needed at home. Use your oxygen 2 L now constantly for the next 5 days. Return if you are feeling worse. 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 Disposition Disposition: Home, Self Care
[2021-12-23 09:00] LABS: Absolute Lymphocyte Count 2.19 X10^3/uL (0.83-4.51); Absolute Neutrophil Count 5.6 X10^3/uL (2.0-7.7); Basophil# 0.05 X10^3/uL; Basophil% 0.5 % (0-1); Eosinophil# 1.29 X10^3/uL; Eosinophils% 12.7 % (0-5); Hematocrit 49.2 % (40-54); Hemoglobin 16.5 g/dL (13.0-16.5); Lymphocyte # 2.19 X10^3/ul (0.83-4.51); Lymphocyte % 21.6 % (19-41); Mean Corp Hgb Conc 33.5 g/dL (32-36); Mean Corpuscular Hgb 33.1 pg (27.0-32.0); Mean Corpuscular Volume 98.8 fL (80-94); Mean Platelet Vol. 10.2 fl (6.2-12.0); Monocyte# 0.95 X10^3/uL; Monocyte% 9.4 % (0-10); NRBC Flagged by Analyzer 0 % (0-5); Neutrophil # 5.63 X10^3/uL (2.7-7.7); Neutrophil % 55.6 % (47-70); Platelet Count 317 K/mm3 (150-450); RBC Distribution Width CV 13.8 % (11.6-14.6); RBC Distribution Width SD 50.1 fl (35.1-43.9); Red Blood Count 4.98 M/mm3 (4.6-6.2); White Blood Count 10.1 K/mm3 (4.4-11.0)
[2021-12-23 09:12] LABS: Anion Gap 4 (5-15); BUN 10 mg/dL (7-18); BUN/Creat Ratio 9.3 RATIO (10-20); Calcium,Total 9.6 mg/dL (8.5-10.1); Chloride 102 mmol/L (98-107); Creatinine, Serum 1.07 mg/dL (0.70-1.30); EST Glomerular Filtration Rate 72 mL/min (>60); Est Glom Filt Rate - Afr Amer 87 mL/min (>60); Glucose 169 mg/dL (74-106); Sodium Level 137 mmol/L (136-145); Troponin-I HS 9 pg/mL (3.0-78.0)
[2021-12-23] MEDS: MethylPREDNISolone 125 MG/2 ML Vial IV (09:12)
--- NOTE | 2021-12-23 09:23 | RAD_ITS ---
STUDY: X-RAY CHEST REASON FOR EXAM: Male, 71 years old. Dyspnea TECHNIQUE: Single AP portable view of the chest. COMPARISON: Comparison is made with prior study dated 10/17/2021. FINDINGS: EKG electrodes are seen. There is hyperinflation of the lungs consistent with chronic obstructive lung disease (COPD). There is no demonstrated pleural abnormality. Normal size heart. Normal mediastinum and lisa. Normal visualized pulmonary arteries. There is atherosclerotic calcification of the aortic arch with tortuosity. Normal visualized thoracic spine. Normal visualized ribs, clavicles, and shoulders. There is no demonstrated abnormality of the visualized soft tissue structures of the upper abdomen. RAD/Chest 1 View (Portable) IMPRESSION: Hyperinflation. The lungs are clear. Electronically Signed: Anibal Jimenez MD at 9:57 EST ,
--- NOTE | 2021-12-23 12:10 | ED.RN ---
Patient arranged for discharge, states work of breathing improved however seems tachypneic, oxygen saturations >95% on 2lpm. On getting dressed and d/c'd from protection officer patient became increasingly tachypneic, hypoxia at 89% on 2lpm and audible wheezing noted. Dr. Aponte notified and orders for repeat breathing treatments, respiratory called.
--- NOTE | 2021-12-23 12:41 | ED.RN ---
Nebulizer treatments completed, patient no longer tachypneic and oxygen saturations remain mid 90's. Dr Aponte aware.
--- NOTE | 2021-12-25 17:25 | CASEMGMT ---
JAY ROA ED follow up: Date of ER visit: 12/23/2021 Presenting ER complaint: shortness of breath JAY ROA placed call to patient's telephone number listed on demographics. Patient's significant other Karma Cade answered and reports patient is sleeping at this time and she would rather not disturb him. JAY ROA introduced self and role at [facility] and informed of reason for call. Karma states patient seems to be feeling better but continues to cough. 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 Karma reports patient is using nebulizer about every 4 hours and wearing home oxygen at 2-3LPM as instructed with SpO2 98%. States patient eating and drinking well and blood glucose has been good. 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 Karma denies questions or concerns. JAY Arevalo CM
== END 2021-12-23 23:59 | disposition home or self-care (01) ==
PROVIDERS: Emergency Provider Emergency Medicine; Visit Provider Emergency Medicine
DX: J44.1 Chronic obstructive pulmonary disease with (acute) exacerbation (principal); E11.9 Type 2 diabetes mellitus without complications; R09.02 Hypoxemia; I10 Essential (primary) hypertension; Z99.81 Dependence on supplemental oxygen; Z79.51 Long term (current) use of inhaled steroids; Z79.899 Other long term (current) drug therapy; Z87.01 Personal history of pneumonia (recurrent); Z87.891 Personal history of nicotine dependence
CPT/HCPCS: 71045; 80048; 84484; 85025; 87426; 93005; 94640; 96374; 99284; A4216

== ENCOUNTER 2022-01-13 22:02 | Emergency (ER) | payer OTHER, SELFPAY ==
[2022-01-13 22:03] VITALS: BP 169/106; PULSE 105; RESP 26; TEMP 36.2; O2SAT 88; BMI 25.7
[2022-01-13 22:05] VITALS: BP 169/106; PULSE 105; RESP 26; TEMP 36.2; O2SAT 88
[2022-01-13 22:07] VITALS: O2SAT 4
--- NOTE | 2022-01-13 22:08 | EKG12_ITS ---
Test Reason : SOB Blood Pressure : / mmHG Vent. Rate : 084 BPM Atrial Rate : 084 BPM P-R Int : 164 ms QRS Dur : 072 ms QT Int : 348 ms P-R-T Axes : 066 027 053 degrees QTc Int : 411 ms Sinus rhythm with marked sinus arrhythmia Nonspecific ST abnormality Abnormal ECG Confirmed by AZALEA PRATHER, MICHEAL ([id number]), digital editor TERA CAMPBELL ([id number]) on 01/14/2022 10:01:28 AM Referred By: JU Confirmed By:MICHEAL TRISTAN MD
--- NOTE | 2022-01-13 22:15 | CT_ITS ---
STUDY: CTA CHEST AND CTA ABDOMEN/PELVIS WITH CONTRAST REASON FOR EXAM: Male, 71 years old. Dissection RADIATION DOSAGE (If Supplied By Facility): CTDIvol = ( 18.67 ) mGy, DLP = ( 1525.04 ) mGycm TECHNIQUE: The examination was performed with the intravenous administration of IV 100mL Isovue-370. Post-processing of the angiographic images was performed, with multiplanar reformation and 3D reconstruction. Individualized dose optimization techniques were used for this CT. COMPARISON: Chest, 01/13/2022. CTA of the chest, 09/26/2021. FINDINGS: CTA Chest Normal enhancement of the main pulmonary artery and right and left pulmonary arteries. Normal enhancement of the bilateral peripheral pulmonary arteries. There is no demonstrated pulmonary embolism. There is atherosclerotic changes of the thoracic aorta without aneurysm There is no demonstrated aortic dissection. Normal heart and pericardium. There are calcifications of the coronary arteries. Normal mediastinum. Normal hilar regions. Normal visualized trachea and bronchi. The lungs are hyper expanded, with flattening of the hemidiaphragms. Diffuse emphysematous changes throughout the lungs without mass or infiltrate. Normal pleura. Normal chest wall structures. There are degenerative changes of thoracic spine. CTA Abdomen T Pelvis Abdominal aorta: There is atherosclerotic changes of the abdominal aorta without stricture or dissection or aneurysm. Celiac and superior mesenteric arteries: There is narrowing of the proximal celiac artery with poststenotic dilatation of 1 cm. Inferior mesenteric artery: The origin of the DELANEY is not visualized. The peripheral vessels are supplied via collaterals from the SMA. Right renal artery(arteries): 2 right renal arteries. The larger upper artery demonstrates mild atherosclerotic changes. Left renal artery(arteries): Moderate stenosis of the proximal left renal artery. Right common iliac artery: Atherosclerotic changes with mild stenosis Right external iliac artery: Atherosclerotic changes with mild stenosis. Right internal iliac artery: Atherosclerotic changes with mild stenosis. Left common iliac artery: Atherosclerotic changes with mild stenosis Left external iliac artery: Atherosclerotic changes with mild stenosis. Atherosclerotic changes with mild stenosis. Left internal iliac artery: No demonstrated narrowing. The liver is diffusely fatty infiltrated but without mass. Normal gallbladder and extrahepatic biliary system. Normal spleen. Normal pancreas. Normal bilateral adrenal glands. Normal right kidney. Normal left kidney. Normal bilateral ureters. Normal visualized stomach. Normal small intestine. Normal colon. The appendix is visualized and appears normal. Normal inferior vena cava. Normal retroperitoneum. Normal urinary bladder. The prostate is enlarged. No pelvic lymphadenopathy. No free air or free fluid is seen within the peritoneal cavity. Small umbilical hernia of omental fat. The abdominal wall is otherwise unremarkable. There are diffuse degenerative changes of the visualized lumbar spine. CT/CTA Chst, Abd, Pel W and/or WO IMPRESSION: 1. Atherosclerotic changes of the thoracic and abdominal aorta without dissection or aneurysm. Mild stenosis of the proximal celiac artery and left renal artery. 2. No evidence of pulmonary embolism. 3. Emphysematous changes of the lungs without mass or infiltrate. 4. Fatty infiltration of the liver without mass. 5. Enlarged prostate. Electronically Signed: Desmond Ravi DO at 23:24 EST ,
--- NOTE | 2022-01-13 22:18 | ED.VIS.DYS ---
HPI History of Present Illness Chief Complaint: Shortness of Breath Narrative Narrative: 71-year-old male presenting with dyspnea. He states been worse over the last couple of days. He states he recently finished a 10-day course of steroids in which he was doing fairly well however the last 2 days he has been having increased wheezing. He has home nebulizers and states these are not helping. Patient also describes left-sided chest and abdominal pain. He does not describe it as tearing or ripping. He describes it as pressure. Patient has not had any nausea or vomiting. Patient states he is having bowel movements and had several today. He does state that his stomach is tense but is always tense. He states he bloats when he eats and this is chronic. Patient does have history of aortic aneurysm and states this has been stable. Patient is not currently a smoker. He denies fever, chills but does have a cough. Patient wears 3 L at baseline and states this is even with ambulation. Patient currently requiring 5 L when transported by EMS. He states he took 2 treatments prior to leaving his home. PFSH PFS Medical History Acute maxillary sinusitis, unspecified Bilateral pneumonia COPD (chronic obstructive pulmonary disease) Encounter for screening for COVID-19 Former smoker Hypertension Smoking greater than 40 pack years Home Medications albuterol sulfate [Ventolin HFA] 1 inh INHALATION Q6H #8.5 g 10/18/21 [Rx Last Taken Unknown] amlodipine 10 mg PO DAILY 12/23/21 [History Last Taken Unknown] carvedilol 12.5 mg PO DAILY 12/23/21 [History Last Taken Unknown] melatonin 3 mg PO QHS 12/23/21 [History Last Taken Unknown] multivitamin 1 tab PO DAILY 12/23/21 [History Last Taken Unknown] omeprazole 20 mg PO DAILY 12/23/21 [History Last Taken Unknown] pravastatin 80 mg PO QHS 12/23/21 [History Last Taken Unknown] tamsulosin 0.4 mg PO QHS 12/23/21 [History Last Taken Unknown] nystatin 100,000 unit BUCCAL DAILY 01/14/22 [History Last Taken Unknown] prednisone 50 mg PO DAILY 5 Days #5 tab 01/14/22 [Rx Last Taken Unknown] simethicone 80 mg PO 4X/DAY 01/14/22 [History Last Taken Unknown] tiotropium bromide [Spiriva Respimat] 2 puff INHALATION DAILY 01/14/22 [History Last Taken Unknown] Allergy/AdvReac Type Severity Reaction Status Date / Time No Known Allergies Allergy Verified 12/23/21 08:41 Family History Father Cancer Heart disease Mother Heart disease Myocardial infarction Surgical History H/O wrist surgery Hx of appendectomy Social History household members: spouse Smoking Status: Former smoker quit date: 09/26/21 pack-years: 90 Tobacco: How many years used: 60 alcohol intake: former substance use type: does not use ROS ROS ED Constitutional Constitutional ED: Denies chills or fever(s) Eyes Eyes: Denies blurry vision ENT ENT ED: Denies rhinorrhea or sore throat Cardiovascular Cardiovascular: Reports chest pain; Denies palpitations or racing heartbeat Respiratory/Chest Respiratory/Chest: Reports cough, dyspnea and dyspnea on exertion Gastrointestinal Gastrointestinal: Reports abdominal pain; Denies constipation, nausea or vomiting Genitourinary Genitourinary ED: Denies dysuria or hematuria Musculoskeletal Musculoskeletal: Denies arthralgias or myalgias Integumentary Denies abscess or rash Neurologic Neurologic: Denies headache(s) or weakness Psychiatric Psychiatric: Denies anxiety or depression EXAM Physical Exam Const Vital Signs: 01/13/22 22:03 01/13/22 22:05 01/13/22 22:07 Temperature 97.2 F L 97.2 F L Temperature Source Temporal Temporal Pulse Rate 105 H 105 H Respiratory Rate 26 H 26 H Respiratory Effort Short of Breath Labored Respiratory Depth Shallow Respiratory Pattern Tachypnea Blood Pressure 169/106 H 169/106 H Blood Pressure Mean 127 127 Pulse Ox 88 88 Oxygen Delivery Method Room Air Room Air Nasal Cannula Oxygen Flow Rate (L/min) 4 93 Fraction of Inspired Oxygen (FIO2) 100 01/13/22 22:25 01/13/22 22:49 01/13/22 23:35 Temperature Temperature Source Pulse Rate 70 67 66 Respiratory Rate 20 H 16 16 Respiratory Effort Respiratory Depth Respiratory Pattern Blood Pressure 159/84 H 118/88 H Blood Pressure Mean 109 98 Pulse Ox 98 99 Oxygen Delivery Method Nasal Cannula Nasal Cannula Oxygen Flow Rate (L/min) 4 Fraction of Inspired Oxygen (FIO2) 100 100 01/14/22 00:00 01/14/22 00:38 Temperature 98.3 F Temperature Source Temporal Pulse Rate 74 64 Respiratory Rate 28 H 20 H Respiratory Effort Respiratory Depth Respiratory Pattern Blood Pressure 118/88 H 119/80 Blood Pressure Mean 98 Pulse Ox 97 98 Oxygen Delivery Method Room Air Oxygen Flow Rate (L/min) Fraction of Inspired Oxygen (FIO2) Positive well nourished General Appearance ED: NAD; Negative for pallor HEENT Reports moist mucous membranes atraumatic Eyes PERRL and EOMs intact bilaterally Resp Auscultation: Negative for rales, rhonchi or wheezes Cardio regular rhythm Rate: tachycardic GI Inspection: abdominal distention; Negative for visible pulsation Palpation: tender LLQ and LUQ Back/Spine no CVA tenderness Neuro oriented x3, CN's II-XII intact bilaterally and no sensory deficits noted Sensorium / Orientation: alert Motor Exam: strength 5/5 throughout Psych mental status grossly normal Thought Process: normal thought process Skin General Skin Exam: Negative for jaundice or pallor Lesions: no lesions Rashes: no rashes MDM MDM MDM Narrative Medical decision making narrative: 71-year-old male presenting with dyspnea and is obviously wheezing on examination. He is audible without auscultation. He does state that he feels tight. He has a history of COPD but is currently not a smoker. Patient given Solu-Medrol and breathing treatments. Due to tachycardia, tachypneic, hypoxia sepsis work-up was obtained. EKG obtained on arrival and on my interpretation shows a sinus rhythm with a ventricular of [address] elevation or depression. Patient reevaluated after breathing treatments and states he feels somewhat improved although he feels claustrophobic which is chronic for him since he was in the . Patient still complaining that his left flank hurts but does not want medication but is amenable to a Lidoderm patch. On his CBC his white blood cell count is 10.7, hemoglobin 16.2, platelets 258. PT and INR normal. X-ray my interpretation shows no acute cardiopulmonary process and the radiologist agree. High-sensitivity troponin is 7. BNP 14.4. Lactic acid 1.4. CTA of the chest abdomen pelvis is ordered to assess patient's previously known aneurysm of 4.1 cm. This does show that he has stable thoracic and abdominal aneurysms. There are no PEs. There is extensive emphysematous changes. There is no dissection. Patient's pain improved with a Lidoderm patch to the left ribs/flank. Patient's vital signs did normalize after treatments other than a little bit of tachypnea. He feels I 100% better than when he arrived. I do not believe he is septic based on his lab work and imaging and there is no source of infection. He states he has follow-up with the [facility] for pulmonology next month. He is to continue his home medications as prescribed. He is given return precautions. Impression: 1. COPD exacerbation 2. Chest pain noncardiac 3. Abdominal pain 4. Abdominal aortic aneurysm stable 5. Ascending aortic aneurysm stable Lab Data Attestation: I reviewed the patient's lab results. Labs: Laboratory Results - last 24 hr 01/13/22 01/13/22 01/13/22 22:10 22:10 22:10 WBC 10.7 RBC 4.74 Hgb 16.2 Hct 48.1 MCV 101.5 H MCH 34.2 H MCHC 33.7 RDW Std Deviation 49.1 H RDW Coeff of Tarik 13.0 Plt Count 258 MPV 10.4 Immature Gran % (Auto) 0.600 Neut % (Auto) 64.2 Lymph % (Auto) 20.4 [place] % (Auto) 7.1 Eos % (Auto) 7.4 H Baso % (Auto) 0.3 Absolute Neuts (auto) 6.9 Absolute Lymphs (auto) 2.18 Nucleated RBC % 0 PT 12.6 INR 1.0 APTT 24.6 Sodium 138 Potassium 4.0 Chloride 101 Carbon Dioxide 34.0 H Anion Gap 3 L BUN 12 Creatinine 1.11 Estim Creat Clear Calc 64.07 Est GFR (MDRD) Af Amer 84 Est GFR (MDRD) Non-Af 69 BUN/Creatinine Ratio 10.8 Glucose 223 H Lactic Acid Calcium 9.5 Total Bilirubin 0.50 AST 59 H ALT 141 H Alkaline Phosphatase 78 Troponin I High Sens 7 B-Natriuretic Peptide Total Protein 7.4 Albumin 3.9 Globulin 3.5 Albumin/Globulin Ratio 1.1 Urine Color Urine Clarity Urine pH Ur Specific [place]coe Urine Protein Urine Glucose (UA) Urine Ketones Urine Occult Blood Urine Nitrite Urine Bilirubin Urine Urobilinogen Ur Leukocyte Esterase Urine RBC Urine WBC Ur Squamous Epith Cells Urine Bacteria Urine Mucus 03/07/22 03/07/22 03/08/22 22:10 22:10 00:06 WBC RBC Hgb Hct MCV MCH MCHC RDW Std Deviation RDW Coeff of Tarik Plt Count MPV Immature Gran % (Auto) Neut % (Auto) Lymph % (Auto) [place] % (Auto) Eos % (Auto) Baso % (Auto) Absolute Neuts (auto) Absolute Lymphs (auto) Nucleated RBC % PT INR APTT Sodium Potassium Chloride Carbon Dioxide Anion Gap BUN Creatinine Estim Creat Clear Calc Est GFR (MDRD) Af Amer Est GFR (MDRD) Non-Af BUN/Creatinine Ratio Glucose Lactic Acid 1.4 Calcium Total Bilirubin AST ALT Alkaline Phosphatase Troponin I High Sens B-Natriuretic Peptide 14.4 Total Protein Albumin Globulin Albumin/Globulin Ratio Urine Color Yellow Urine Clarity Clear Urine pH 7.0 Ur Specific [place]coe 1.010 Urine Protein Negative Urine Glucose (UA) Normal Urine Ketones Negative Urine Occult Blood Negative Urine Nitrite Negative Urine Bilirubin Negative Urine Urobilinogen Normal Ur Leukocyte Esterase Negative Urine RBC 0 SEEN Urine WBC 0 SEEN Ur Squamous Epith Cells 0 SEEN Urine Bacteria 0 SEEN Urine Mucus 0 SEEN Radiography Diagnostic Testing: Clinical Impression(s) from Imaging Studies Chest/Abdomen/Pelvis CTA 01/13/22 22:15 IMPRESSION: 1. Atherosclerotic changes of the thoracic and abdominal aorta without dissection or aneurysm. Mild stenosis of the proximal celiac artery and left renal artery. 2. No evidence of pulmonary embolism. 3. Emphysematous changes of the lungs without mass or infiltrate. 4. Fatty infiltration of the liver without mass. 5. Enlarged prostate. Electronically Signed: Desmond Ravi DO at 23:24 EST Reading Location ID and State: [address] [place] [address] Tel [phone], Service support , Chest X-Ray 01/13/22 23:00 IMPRESSION: No radiographic evidence of acute cardiopulmonary disease. Hyperinflation. at [id number] Reported and signed by: Juan Francisco Barrientos MD Electronically Signed: Juan Francicso Barrientos MD at 23:10 EST Reading Location ID and State: [facility] / [place] Tel , Service support , Discharge Plan Triage Chief Complaint: Shortness of Breath ED Provider: Oscar Holt Dx/Rx/DC Orders Clinical Impression: Aneurysm, ascending aorta, Abdominal aortic aneurysm (AAA) Instructions: ED COPD Flare, ED Aneurysm Abd Aortic Stable Prescriptions: New prednisone 50 mg tablet 50 mg PO DAILY 5 Days Qty: 5 RF: 0 No Action albuterol sulfate [Ventolin HFA] 90 mcg/actuation HFA aerosol inhaler 1 inh inhalation Q6H Qty: 8.5 RF: 0 multivitamin Tablet 1 tab PO DAILY RF: 0 carvedilol 12.5 mg Tablet 12.5 mg PO DAILY RF: 0 melatonin 3 mg Tablet 3 mg PO QHS RF: 0 pravastatin 80 mg Tablet 80 mg PO QHS RF: 0 tamsulosin 0.4 mg Capsule 0.4 mg PO QHS RF: 0 amlodipine 10 mg Tablet 10 mg PO DAILY RF: 0 omeprazole 20 mg Tablet,Delayed Release (Dr/Ec) 20 mg PO DAILY RF: 0 nystatin 100,000 unit/mL Suspension 100,000 unit BUCCAL DAILY RF: 0 simethicone 80 mg Tablet 80 mg PO 4X/DAY RF: 0 Spiriva Respimat 2.5 mcg/actuation Mist 2 puff INHALATION DAILY RF: 0 [facility] [Primary Care Provider] - Disposition Disposition: Home, Self Care
[2022-01-13] MEDS: Ipratropium/Albuterol Sulfate 3 ML AMPUL.NEB INHALATION (22:19)
[2022-01-13] MEDS: Albuterol 2.5 MG/3 ML VIAL.NEB. INHALATION (22:19)
[2022-01-13] MEDS: MethylPREDNISolone 125 MG/2 ML Vial IV (22:20)
[2022-01-13 22:21] LABS: Absolute Lymphocyte Count 2.18 X10^3/uL (0.83-4.51); Absolute Neutrophil Count 6.9 X10^3/uL (2.0-7.7); Basophil# 0.03 X10^3/uL; Basophil% 0.3 % (0-1); Eosinophil# 0.79 X10^3/uL; Eosinophils% 7.4 % (0-5); Hematocrit 48.1 % (40-54); Hemoglobin 16.2 g/dL (13.0-16.5); Lymphocyte # 2.18 X10^3/ul (0.83-4.51); Lymphocyte % 20.4 % (19-41); Mean Corp Hgb Conc 33.7 g/dL (32-36); Mean Corpuscular Hgb 34.2 pg (27.0-32.0); Mean Corpuscular Volume 101.5 fL (80-94); Mean Platelet Vol. 10.4 fl (6.2-12.0); Monocyte# 0.76 X10^3/uL; Monocyte% 7.1 % (0-10); NRBC Flagged by Analyzer 0 % (0-5); Neutrophil # 6.87 X10^3/uL (2.7-7.7); Neutrophil % 64.2 % (47-70); Platelet Count 258 K/mm3 (150-450); RBC Distribution Width SD 49.1 fl (35.1-43.9); Red Blood Count 4.74 M/mm3 (4.6-6.2); White Blood Count 10.7 K/mm3 (4.4-11.0)
[2022-01-13 22:25] VITALS: PULSE 70; RESP 20
[2022-01-13 22:36] LABS: Prothrombin Time (Protime)PT. 12.6 SECONDS (11.7-14.9)
[2022-01-13 22:37] LABS: Partial Thromboplast Time 24.6 Seconds (24.1-36.2)
[2022-01-13 22:40] LABS: ALB/GLOB Ratio 1.1 RATIO (0.9-2.4); AST(SGOT) 59 U/L (15-37); Alanine Aminotransfer ALT/SGPT 141 U/L (16-61); Albumin, Serum 3.9 g/dL (3.2-5.0); Alkaline Phosphatase 78 U/L (45-117); Anion Gap 3 (5-15); BUN 12 mg/dL (7-18); BUN/Creat Ratio 10.8 RATIO (10-20); Calcium,Total 9.5 mg/dL (8.5-10.1); Chloride 101 mmol/L (98-107); Creatinine, Serum 1.11 mg/dL (0.70-1.30); EST Glomerular Filtration Rate 69 mL/min (>60); Est Glom Filt Rate - Afr Amer 84 mL/min (>60); Estimated Creatinine Clearance 64.07 ml/min; Globulin 3.5 g/dL (2.2-4.2); Glucose 223 mg/dL (74-106); Protein, Total 7.4 g/dL (6.4-8.2); Sodium Level 138 mmol/L (136-145); Troponin-I HS 7 pg/mL (3.0-78.0)
[2022-01-13 22:41] LABS: BNP,B-Type NATRIURETIC PEPTIDE 14.4 pg/mL (0-100)
[2022-01-13 22:49] VITALS: BP 159/84; PULSE 67; RESP 16; O2SAT 98
--- NOTE | 2022-01-13 23:00 | RAD_ITS ---
EXAM: XR CHEST, 1 VIEW : 1950 CLINICAL INDICATION: dyspnea TECHNIQUE: Frontal view of the chest. This report was created using [employer] report generation technology. COMPARISON: 12/23/21. FINDINGS: LUNGS AND PLEURAL SPACES: Unremarkable. No consolidation or edema. No pneumothorax. No effusion. HEART: Unremarkable. Cardiac silhouette not enlarged. MEDIASTINUM: Central airways and mediastinal contour are unremarkable. BONES/JOINTS: Unremarkable. SOFT TISSUES: Unremarkable. RAD/Chest 1 View (Portable) IMPRESSION: No radiographic evidence of acute cardiopulmonary disease. Hyperinflation. at 2311 Reported and signed by: Juan Francisco Barrientos MD Electronically Signed: Juan Francisco Barrientos MD at 23:10 EST ,
[2022-01-13 23:04] LABS: Lactic Acid 1.4 mmol/L (0.4-1.9)
[2022-01-13 23:35] VITALS: BP 118/88; PULSE 66; RESP 16; O2SAT 99
[2022-01-13] MEDS: Lidocaine 5% Patch 1 PATCH TOPICAL (23:41)
[2022-01-14] VITALS: BP 118/88; PULSE 74; RESP 28; TEMP 36.8; O2SAT 97
[2022-01-14 00:16] LABS: Bacteria 0 SEEN /hpf (None Seen); Color, Urine Yellow (Yellow); Glucose, Dipstick Normal (Normal); Ketone-Dipstick Negative (Negative); Leukocyte Esterase-Dipstick Negative /ul (Negative); Mucous, Urine 0 SEEN /hpf (<or=2+); Nitrite-Dipstick Negative (Negative); Occult Blood-Urine Negative /ul (Negative); Protein-Dipstick Negative (Negative); Red Blood Cells-Urine 0 SEEN /hpf (0-5); Squamous Epithelial Cells - UA 0 SEEN /hpf (0-5); Urine Bilirubin Dipstick Negative (Negative); Urine Clarity Clear (Clear); Urine Urobilinogen Normal (Normal); White Blood Cells 0 SEEN /hpf (0-5)
[2022-01-14 00:38] VITALS: BP 119/80; PULSE 64; RESP 20; O2SAT 98
--- NOTE | 2022-01-14 13:35 | CASEMGMT ---
[facility] ER follow-up: Date of ER visit: 01/13/2022 Presenting ER complaint: shortness of breath JAY ROA placed call to patient's telephone number listed on demographics with no answer. Voice message left with call back information requesting return call if any questions, needs or concerns. JAY Arevalo CM
== END 2022-01-14 00:49 | disposition home or self-care (01) ==
PROVIDERS: Emergency Provider Student in an Organized Health Care Education/Training Program; Visit Provider Student in an Organized Health Care Education/Training Program
DX: I71.2 Thoracic aortic aneurysm, without rupture (principal); J44.1 Chronic obstructive pulmonary disease with (acute) exacerbation; I71.4 Abdominal aortic aneurysm, without rupture; I10 Essential (primary) hypertension; R07.89 Other chest pain; Z79.899 Other long term (current) drug therapy; Z99.81 Dependence on supplemental oxygen; Z87.01 Personal history of pneumonia (recurrent); Z87.891 Personal history of nicotine dependence
CPT/HCPCS: 71045; 71275; 74174; 80053; 81001; 83605; 83880; 84484; 85025; 85610; 85730; 87040; 87086; 87088; 87426; 93005; 94640; 96374; 99284; Q9967; A4216

== ENCOUNTER 2022-02-20 14:28 | Outpatient (CLI) | payer MEDICARE, OTHER, SELFPAY ==
--- NOTE | 2022-02-20 14:29 | CT_ITS ---
STUDY: CT Abdomen And Pelvis W/ Contrast Injection 02/20/2022 5:04 PM REASON FOR EXAM: Male, 71 years old. Abdominal pain abd pain Individualized dose optimization techniques were used for this CT. COMPARISON: 3.05.30. TECHNIQUE: CT Abdomen And Pelvis W/ Contrast Injection Oral and IV Gastrografin and ; 100mL Isovue-300 FINDINGS: There are atherosclerotic calcifications of visualized coronary arteries. The visualized portions of the heart are within normal limits. Stable enhancing liver lesion of the right lobe of the liver. Normal gallbladder and extrahepatic biliary system. Normal spleen. Normal pancreas. Normal bilateral adrenal glands. There are hypodensities in the right kidney. These are consistent for cysts. No follow up required. No acute findings of the left kidney. Normal visualized stomach. Normal small intestine. Stool throughout the colon. There is non-visualization of the appendix. There are calcifications of the abdominal aorta. This is consistent for atherosclerotic disease. There is 34 mm abdominal aortic aneurysm. Normal inferior vena cava. Subcentimeter mesenteric lymph nodes. Normal urinary bladder. There is an umbilical hernia containing fat. Normal osseous structures. IMPRESSION: (NOT LISTED IN ORDER OF SIGNIFICANCE) 34 mm abdominal aortic aneurysm. Stable enhancing liver lesion of the right lobe of the liver. Other findings as above. Electronically Signed: Juan Francisco Esquivel MD at 17:07 EDT , CT/Abdomen/Pelvis WITH Contrast
[2022-02-20 16:51] LABS: EGFR FINGERSTICK > 60.0000 mL/min (>60)
== END 2022-02-20 23:59 | disposition home or self-care (01) ==
LOC: CT 14:29
PROVIDERS: Referring Provider Surgery; Visit Provider Surgery
DX: I71.4 Abdominal aortic aneurysm, without rupture (principal); K76.9 Liver disease, unspecified; R10.9 Unspecified abdominal pain; R14.0 Abdominal distension (gaseous)
CPT/HCPCS: 74177; Q9967

== ENCOUNTER 2022-02-21 08:04 | Outpatient (CLI) | payer MEDICARE, OTHER, SELFPAY ==
--- NOTE | 2022-02-21 08:11 | PR.ITP_ITS ---
General Information2 - General Information Admitting Diagnosis: CHronic Obstructive Pulmonary Disease, pneumonia Gold Classification:: GOLD 3: Severe - PFT FEV1:: 1.97 FVC:: 3.05 FEV1/FVC%:: 85 - Personal Learning Style/Barriers Personal Learning Style:: Audio/Visual, Written Barriers to Learning: None Stage of change r/t lifestyle modifications: Prepared Educational Classes SD: Living with Chronic Lung Disease: Initial Assessment, Breathing Retraining: Initial Assessment, Exercise: Initial Assessment, Energy Conservation: Initial Assessment, Oxygen therapy: Initial Assessment - Education/Goals Individual Counseling: Initial Assessment: High Blood Pressure, Overweight/Obesity SD Patient Goals: Increase muscle strength: Initial Assessment, Experience less dyspnea: Initial Assessment, Improve energy level: Initial Assessment, Participate in home exercise: Initial Assessment, Improve the ability to cope with ADLs: Initial Assessment, Improve knowledge of lung disease: Initial Assessment, Understand how to use medications: Initial Assessment, Increase knowledge of oxygen use: Initial Assessment, Control panic/anxiety: Initial Assessment, Improve diet and nutrition: Initial Assessment, Improve my quality of life: Initial Assessment, Reduce Stress/relaxation techniques: Initial Assessment Exercise - Initial Assessment - Visit Date of Eval: 02/21/22 Session Number:: 0 - pre-pulmonary rehab evaluation - Problem/Goals Problems: Deconditioning, No regular exercise, Knowledge deficit exercise guidelines, Knowledge deficit exercise safety Goals:: Aerobic exercise 30-60 mins x 12 weeks [36 sessions] - Physician Prescribed Exercise Modalities: Treadmill, Airdyne, NuStep Intensity: 60-80% of age predicted maximum heart rate reserve Current METSs:: 3.0 Target HR:: 126 - THRR 96-126 Resting Blood Pressure: 147/89 EKG Type: sinus rhythm Current Minutes of Exercise: 0 - Plan Plan and Plan to Review:: Benefits of exercise, Core components of exercise, How to measure dyspnea level, How to monitor dyspnea level, Exercise intensity, Exercise safety guideline, Home exercise guidelines, Jessica: 3-4/11-13 Home Exercise Mode: Walking Nutrition/Wt Mgmt - Initial - Visit Date of Eval: 02/21/22 Session Number:: 0 - pre-pulm rehab evaluation - Problems/Goals Problems: Overweight Goals: Wt Loss 1-2 lbs per week - Weight Management Knowledge Deficit Management of:: Overweight Admit Height:: 5 ft 11 in Admit Weight:: 216 lb 3.2 oz Admit BMI:: 30.1 - Intervention Referral to dietitian:: Yes Will attend diet classes:: Yes Intervention/Plan: Instruct on ideal BMI & set weight loss goal w/patient, Assist pt to ID & incorporate diet changes for weight loss by S9, Refer to Structured Weight Loss program as appropriate, Encourage goal of using 250- 300dcal per session for weight loss - Plan Nutrition Plan: Yes Review BMI or WC & identify target wt & strategies for wt control, Yes Nutrition education class:, Yes Weight control education class:, Yes Education re: Need for ongoing weight monitoring Psychosocial - Initial Assess - Visit Date of Eval: 02/21/22 Session Number:: 0 - pre-pulm rehab evaluation - Problems/Goals History of Emotional Disorders: Depression Psychosocial Goals: 1. Patient is free from overwhelming symtoms of depression (or anxiety, 2. Identifies personal stressors & states the strategies for managing, 3. Identifies activities to decrease isolation and/or symptoms of, 4. Improved psychosocial coping skills., 5. Verbalizes coping strategies., 6. Adequate treatment of depression., 7. Improved Q.O.L. - Psychosocial Test Tool Used:: Pulmonary QOL, PHQ-9 Questionnaire - Referral to Behavioral Health PS - Interventions: Yes Attend Stress Management Classes, No Referral to Behavioral Health if PHQ-9 score >9:, No Referral to [facility], No Referral to Physician if PHQ-9 if score is 5-9: - Intervention/Plan: See List Interventions/Plan:: Assess stressors,coping strategies & signs of derpression on admission, Instruct/assist pt to develop coping & personal stress Mgt strategies, Instruct patient to recognize signs & symptoms of depression, Instruct patient to recog Oxygen & Oxygen Titration Init - Visit Date of Eval: 02/21/22 Session Number:: 0 - pre-pulm rehab evaluation - Initial Assessment Oxygen on Admission: Continuous home use, Oxygen w/activity SpO2:: 94 FiO2:: 24 - 2 liters at home Patient Reports:: No cough - Goal Oxygen & Oxygen Tritration Goals: Effective hypoxemia control, Uses O2 as Rx'd/safely - Plans Plan: Monitor SpO2 rest & with exercise, Train appropriate O2 use with exercise, Train O2 safety & systems Reviewed prescribed medications:: Purpose, Schedule, Side effects, Importance of compliance Instruct correct technique/timing & care:: MDI, Nebulizer Bronchial Hygiene Plan: Vibratory PEP device, Hydration, Hand hygiene, Signs/symptoms to report: Core Components - Initial - Visit Date of Eval: 02/21/22 Session Number:: 0 - pre-pulm rehab evaluation - Hypertension Hypertension Diagnosis:: Hypertension ICD-10 I10 BP: 147/89 [place] [employer] Hypertension Guidelines: [place] [employer] Hypertension Guidelines. Normal BP Less than 120/80. Elevated BP 120/80. Hypertension Stage 1: BP 130-139/80-89. Hypertesnion Stage 2: BP 140 or higher/90 or higher. Hypertension Crisis: BP higher than 180/120 Low Sodium diet: No Outcomes/Goals: Able to verbalize/achieve optimal blood pressure <130/80, Incorporates diet changes & exercise for blood pressure control by DC - Tobacco - Initial Assessment Tobacco Program Goals: Complete smoking cessation. Attend education classes. Improve Knowledge Test score Stages of Change:: Preparation Learning Barriers: Ready to Learn Do you have family support?: Yes Tobacco Use: Non-smoker Gave Education Materials For:: Pulmonary Disease, Risk Factors, Breathing Techniques, Medical Compliance, Pulmonary A&P, Exacerbation Signs & Symptoms, Stress & Relaxation - Exacerbation Mgmt & Airway Clearance Problems:: Hypoxemia, Poor knowledge of O2 use/safety Hypoxemia Goals:: Hypoxemia managed, Port system, Using O2 as Rx's safely Bronchial Hygiene Problems:: Respiratory infection Prevention/Management Goals: Pt demonstrates effective cough, effective secretion clearance., Pt describes signs and symptoms of infection. Plan: Monitor SpO2 rest & with exercise, Train appropriate O2 use at rest, Train appropriate O2 use with exercise, Train O2 safety & systems Bronchial Hygiene Plan: Controlled cough, Vibratory PEP device, Hydration, Hand hygiene, Signs/symptoms to report: - Medication Interventions/plans: Instruct on medication effects & side effects, Instruct importance of taking meds as ordered & assist problem solving Medications: Yes MDI, Yes DPI, Yes NEB, No Spacer Reviewed prescribed medications:: Purpose, Schedule, Side effects, Importance of compliance - Diabetes Diabetes:: No Core Components - 30 DAYS Core Components - 60 DAYS Core Components - 90 DAYS Core Components - Final Patient Health Questionnaire Initial Assessment 1. Little interest or pleasure in doing things: Several days 2. Feeling down, depressed, or hopeless: Several days 3. Trouble falling or staying asleep, or sleeping too much: Several days 4. Feeling tired or having little energy: Several days 5. Poor appetite or overeating: Several days 6. Feeling bad about yourself -- or that you are a failure or have let yourself or your family down: Not at all 7. Trouble concentrating on things, such as reading the newspaper or watching television: Not at all 8. Moving or speaking so slowly that other people could have noticed. Or the opposite - being so fidgety or restless that you have been moving around a lot more than usual: Not at all 9. Thoughts that you would be better off , or of hurting yourself in some way: Not at all How difficult have these problems made it for you to do your work, take care of things at home, or get along with other people?: Somewhat difficult Total Score: 5 Knowledge Questionaire (BCKQ) - Information Information: [place] COPD Knowledge Questionnaire (BCKQ) This questionnaire is designed to find out what you know about your lung problem. It should be completed without help form anyone else. This usually ta kes between 10 and 20 minutes. Your answers will help us to find out what information you need to help you to understand and manage your lung condition. [place] which you think is the correct answer. - Questions b. COPD can only be confirmed by breathing tests: False c. In COPD ther is usually gradual worsening over time: False d. In COPD oxygen levels in the blood are always low: True e. COPD is usually in people less than 40 years old: False Trey than 80% of COPD cases are caused by cigarette smoking: True b. COPD can be caused by occupational dust exposure: True c. Longstanding asthma can develop into COPD: False d. COPD is commonly an inherited disease: False e. Women are less vunerable to the effects of cigarette than men: False a. Swelling of the ankles is common in COPD:: False b. Fatigue [tiredness] is common in COPD: True c. Wheezing is common in COPD: True d. Crushing chest pain is common in COPD: True e. Rapid weight loss is common in COPD: False a. Severe breathlessness prevents travel by air: True b. Breathlessness can be worsened by eating large meals: True c. Breathlessness means that your oxygen levels are low: True d. Breathlessness is a normal response to exercise: False e. Breathlessness is primarily caused by a narrowing of the bronchial tubes: True a. Coughing phlegm is a common symptom in COPD: True b. Clearing phlegm is more difficult if you get dehydrated: True c. Bronchodilator inhalers can help clear phlegm: True d. Phlegm causes harm if swallowed: True e. Clearing phlegm can be assisted by breathing exercises: True a. Chest infections often cause coughing of blood: True b. Chest infection phlegm usually becomes coloured (ylw/grn): True cExerbations (episodes of worsening) can occur in the absence of chest infection: True d. Chest infections are always accompanied by a high temperature: False e. Steroid tablets should be taken whenever there is an exacerbation: False aWalking excercises better than breathing to improve fitness: True b. Exercise should be avoided as it strains the lungs: False c. Exercise can help maintain your bone density: False d. Exercise helps relieve depression: True e. Exercise should be stopped if it makes you breathless: True a. Stopping smoking will reduce the risk of heart disease: True b. Stopping smoking will slow down further lung damage: True c. Stopping smoking is pointless as the damage is done: False d.Stopping smoking usually results in improved lung function: True eNicotine replacement therapy only available on prescription: False a. A flu jab is recommended every year: False b. You can get flu from having a flu jab: False c. You can only have a flu jab if you are 65 or over: False d. A pneumonia jab protects against all forms of pneumonia: False e.You can have a pneumonia jab and a flu job on the same day: False a. Bronchodilators act quickly (within 10 minutes): Don't know b. Both short & long acting bronchodilators can be taken on the same day: Don't know c. Spacers (volumatic,nebuhaler,serochamber)should be dried w/atowel after washing: Don't know d. A spacer device increases the medication to the lungs: Don't know e. Tremor may be a side effect of bronchodilators: Don't know a. To be effective, the course should last at least 10 days: True b. Excessive use of antibiotics can cause resistant bacteria (germs): True c. Antibiotics will clear all chest infections: False d. Antibiotic treatment is necessary for an exacerbation (worsening) however mild: True e. Seek advice if antibiotics cause severe diarrhoea: True a. Steroid tablets help strengthen muscles: False b. Steroid tablets should be avoided if there is a chest infection: False c. The risk of long-term side effects due to steroids is less w/short courses then w/continous treatment: True dIndigestion is common side effect from using steroid tablet: True e. Steroid tablets can increase your appetite: True a. Inhaled steroids should be stopped if you are given steroid tablets: True bSteroid inhalers can be used for rapid relief breathlessnes: True c. Spacer devices reduce the risk of getting thrush in the mouth: False d.Steroid inhaler should be taken before your bronchodilator: Don't know e. Inhaled steroids improve lung function in COPD: True COPD Assessment Test [CAT] - Questions Never cough = 0, Cough all the time = 5: 1 No phlegm = 0, Chest full of phlegm = 5: 2 No chest tightness = 0, Chest very tight = 5: 2 No breathless w/exertion = 0, Very breathless w/exertion = 5: 2 No limitations w/activity = 0, Very limited w/activity = 5: 1 Confident leaving home = 0, Not at all confident = 5: 1 Sleep soundly = 0, Don't sleep soundly = 5: 1 Lots of energy = 0, No energy at all = 5: 3 Total CAT score:: 13 Self-Efficacy Initial Assessment We would like to know how confident you are in doing certain activities. Please select your confidence level for:: Select your confidence level for the following using the scale 1-10 where 1 is not at all confident and 10 is totally confident. Your score is the average of all 6 responses. Fatigue: How confident are you that you can keep the fatigue caused by your disease from interfering with the things you want to do? Select Number: 7 Physical Discomfort or Pain: How confident are you that you can keep the physical discomfort or pain of your disease from interfering with the things you want to do? Select Number: 5 Emotional Distress: How confident are you that you can keep the emotional distress caused by your disease from interfering with the things you want to do? Select Number: 5 Other Symptoms or Health Problems: How confident are you that you can keep other symptoms or health problems from interfering with the things you want to do? Select Number: 6 Different Tasks and Activities: How confident are you that you can do the different tasks and activities needed to manage your health condition so as to reduce your need to see a doctor? Select Number: 8 Medication: How confident are you that you can do things other than just taking medication to reduce how much your illness affects your everyday life? Select Number: 8 Total Score:: 6 Nutrition Survey - Nutrition Survey Initial Have you lost >10 lbs over the past 2 months without trying?: No Are you following a special diet at home for diabetes, low fat, or low salt?: Yes Are you interested in meeting with a dietitian for help understanding your diet?: No Do you eat less than 3 meals a day?: Yes Do you eat fatty meats (ayoub, sausage, ribs, etc), fried foods, desserts, large amounts of salad dressings, margarine, butter, or cheese most days?: No Do you have food allergies? [Enter types in comment field]: No Do you eat in restaurants more than 3 times a week?: No Do you season food with salt, seasoning salt, or garlic salt?: No Do you used canned, boxed, frozen meals, or soups, seasoning packets?: No Total Score:: 2
--- NOTE | 2022-02-21 08:12 | PR.HP_ITS ---
History of Present Illness Arrival date:: 02/21/22 Arrival time:: 08:00 Date of Referral:: 02/10/22 Date of Evaluation: 02/21/22 Referring Physician: [place] STEPHAN[facility] - DR. FINNEGAN @ [place] Primary Diagnosis: COPD, pneumonia History of Present Illness: 71 YR MALE PATIENT [facility]. OVER THE PAST YEAR HIS COPD HAS WORSENED AND CAUSED MORE DIBIITY CREATING MORE S HORTNESS OF BREATH WITH EXERTION AND ADLs. mMRC Breathless Scale: When is the patient short of breath? Y/N Grade: Description of Breathlessness: 0 I only get breathless with strenuous exercise. 1 I get short of breath when hurrying on level ground or walking up a slight hill. 2 On level ground, I walk slower than people of the same age because of breathless, or have to stop for breath when walking at my own pace. 3 I stop for breath after walking 100 yards or after a few minutes on level ground. 4 I am too breathless to leave the house or I am breathless when dressing. Respiratory Problems: Yes: Fatigue, Wheezing, Able to Speak in Full Sentences, Anxiety, Dyspnea with Activity No: Retain Secretions, Dizziness, Ankle Swelling, Hoarseness, Dyspnea at Rest, Dyspnea Lying Down Flat, Cough with Secretions - Secretions Normal Color:: NO CURRENT COUGH Thick:: No Thin:: No Hx of Sleep Apnea: No Do you snore loudly (louder than talking or can be heard through closed doors)?: No Do you often feel tired/ fatigued/ sleepy during daytime?: Yes Has anyone observed you stop breathing during sleep?: No History of Hypertension (for STOP score): Yes STOP Results: Positive Home Medications: Home Medications albuterol sulfate [Ventolin HFA] 1 inh INHALATION Q6H #8.5 g 10/18/21 amlodipine 10 mg PO DAILY 12/23/21 carvedilol 12.5 mg PO DAILY 12/23/21 melatonin 3 mg PO QHS 12/23/21 multivitamin 1 tab PO DAILY 12/23/21 omeprazole 20 mg PO DAILY 12/23/21 pravastatin 80 mg PO QHS 12/23/21 tamsulosin 0.4 mg PO QHS 12/23/21 nystatin 100,000 unit BUCCAL DAILY 01/14/22 prednisone 50 mg PO DAILY 5 Days #5 tab 01/14/22 simethicone 80 mg PO 4X/DAY 01/14/22 tiotropium bromide [Spiriva Respimat] 2 puff INHALATION DAILY 01/14/22 citalopram 10 mg PO DAILY 02/21/22 glipizide 5 mg PO DAILY 02/21/22 guaifenesin 200 mg PO Q4H PRN 02/21/22 Allergies/Adverse Reactions: Allergies No Known Allergies Allergy (Verified 02/20/22 13:29) Medical Utilization Do you use a peak flow meter at home?: No Do you use a spacer device with your inhalers?: No Number of hospital visits in the last year?: 3 - EXACBERTION/PNEUMONIA Number of emergency room visits in the last year?: 3 - TROBLE BREATHING Do you see your physician on a regular schedule?: Yes How often?: 3 MONTHS Comments:: PRIMARY CARE THROUGH THE 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 Living Will: No Advance Directives Information Provided: Yes Advance Directives on File: No DNR Order?:: No - MOLST See MOLST form: No Past Medical History - Covid-19 Screening Fever: No Unexplained muscle aches: No Current respiratory symptoms: No Upper respiratory infections symptoms: No Gastro-intestinal symptoms: Yes - CONSTIPATION SCHEDULED FOR AN UPPER AND LOWER GI STUDY [id number] symptoms: No Has tested positive for COVID-19 in last 30 days: No Date of testin02/21/22 - FULLY VACCINATED WITH BOOSTER Had contact w/person w/symptoms or Covid-19 (+) last 14 days: No Has High Risk Exposures ID'd by Health dept/Inf Control team: No 65 years or older:: Yes Lives in Assisted Living facility:: No Has a chronic lung disease or moderate to severe asthma:: Yes Has a serious heart condition:: No Immunocompromised:: No Severely obese (Body Mass Index of 40 or higher):: No Diabetic:: No Has chronic kidney disease undergoing dialysis:: Yes Has liver disease:: No Medical History: Past Medical History (Last Reviewed 02/20/22 @ 13:28 by Nichole Rdz) Acute maxillary sinusitis, unspecified J01.00 Bilateral pneumonia J18.9 COPD (chronic obstructive pulmonary disease) J44.9 Encounter for screening for COVID-19 Z11.52 Former smoker Z87.891 Hypertension I10 Smoking greater than 40 pack years F17.210 Surgical History: Past Surgical History (Last Reviewed 02/20/22 @ 13:28 by Nichole Rdz) H/O wrist surgery Z98.890 Hx of appendectomy Z90.49 Family History: Family History (Last Reviewed 02/20/22 @ 13:28 by Nichole Rdz) Father Cancer Heart disease Mother Heart disease Myocardial infarction - Current/ Previous Services Pulmonary Rehab:: No Social History - Smoking History Smoking Status: Former smoker Hx Smoking Cessation Date: 09/10/21 Hx Tobacco Use: Yes Hx Smoking Exposure: No - Substance Abuse Hx Substance Use: No - Occupation Occupation (List type of work in comments):: Retired - Hobbies, Recreation, Social Activities Hobbies: Sports - FISHING, Other Recreational Activities: I am able to engage in a few activities Functioning ADL/IADL - Current Ability Current Ability: Independent Self-Care (e.g.,grooming, dressing, & bathing), Independent Ambulation, Independent Transfer, Independent Household tasks (e.g., light meal prep, laundry, shopping) - Pt Functioning Prior to Problem Prior Functioning: Self-Care (e.g.,grooming, dressing, & bathing): Independent, Ambulation: Independent, Transfer: Independent, Household tasks (e.g., light meal prep, laundry, shopping): Independent Social Environment - Status Marital Status: - Current Living Arrangements Living Environment:: Spouse - Children How many children do you have?: 1 Do any of your children live nearby?: Yes - Safety Do you feel safe in your surroundings?: Yes Review of Systems Review of Systems: Right click = Denies (Slash). Left click = Reports ([place]) Respiratory: Reports: SOB upon Exertion, Wheezing, Appetite, Normal, Dizziness/Lightheadedness, Fatigue, Sleep, Normal. Denies: Cough, SOB at Rest, Sputum production, Sexual changes Is Patient Pain Free?: Yes Pain Location: none Pain Level: 0/10 Risk Factor Assessment - Vital Signs Temperature: 98.2 F Pulse Rate: 61 Pulse Rhythm: Regular Respiratory Rate: 18 Pulse Ox: 94 Blood Pressure: 147/89 - Diabetes Nutrition Referral for Diabetes: No - Obesity Height: 5 ft 11 in Weight:: 216 lb 3.2 oz Weight in Pounds: 216.2 lbs Weight Source: Stated by Patient Body Mass Index (BMI): 30.1 Nutritional Referral for Obesity: Yes - WHY WEIGHT WEIGHT LOSS PROGRAM - Physical Activity Physical Inactivity: None - Risk Stratification Risk Guidelines: Lowest Risk: Risk Factor for Smoking, Risk Factor for Diabetes, Risk Factor for Depression, Moderate Risk: Risk Factor for Sedentary Lifestyle, Highest Risk: Risk Factor for Obesity, Risk Factor for Hypertension - 147/89 Motivation - Motivation to Participate On a scale of 1 to 10, how prepared are you to commit to attending program?: 10 What do you see as barriers to successfully being able to complete the program?: NONE What do you see as the benefits of succesfully completing the program? In other words, what do you hope to get out of participating in the program?: BENEFIT HEALTH, LIVE LONGER, BREATH EASIE WITH ACTIVITY Are there issues you are dealing with that will interfere with completing the program?: NO Do you have a spouse or signficant other, family or friends who will help support you to complete the program?: YES Diagnostic Data Review - Pulmonary Function Test FEV1:: 1.97 FVC:: 3.05 FEV1/FVC%:: 64 Gold Classification: GOLD class III(severe COPD)with FEV1/FVC<70, 30%</=FEV1< 50% predicted
[2022-02-21 08:40] VITALS: BP 147/89; O2SAT 94; BMI 30.1
[2022-02-21 08:55] VITALS: BP 147/89; PULSE 61; RESP 18; TEMP 36.8; O2SAT 94; BMI 30.1
== END 2022-02-21 23:59 | disposition home or self-care (01) ==
LOC: PR 08:07
DX: J44.0 Chronic obstructive pulmonary disease with (acute) lower respiratory infection (principal); J18.0 Bronchopneumonia, unspecified organism

== ENCOUNTER 2022-03-07 13:00 | Outpatient (RCR) | payer OTHER, SELFPAY | END 2022-03-08 23:59 | LOC: PR 13:00 | DX: J44.9 Chronic obstructive pulmonary disease, unspecified (principal) | CPT/HCPCS: 97150; 94626 ==

== ENCOUNTER 2022-03-25 09:02 | Day surgery (SDC) | payer OTHER, SELFPAY ==
[2022-03-24 08:46] VITALS: BMI 31.4
[2022-03-25] VITALS (7 sets, daily range): BP systolic 104–137; BP diastolic 71–96; PULSE 59–71; RESP 12–72; TEMP 36.1–36.8; O2SAT 91–98; BMI 30.4
--- NOTE | 2022-03-25 | EGD_PTH ---
[id number] LOC: EN U#:[id number] AGE/SX: 71/M ROOM: RE03/25/[address]: Dr. Mikael Singletary MD : 1950 BED: DIS: 03/25/2022 SPEC #: [id number] RECD: 03/25/22 13:07 STATUS: DIANA SUKHWINDER #: [id number] LILY: 03/25/22 00:[address]: Mikael Singletary DEPT: SURGICAL PATHOLOGY RECD BY: Omar eD [place] ENTERED: 03/25/22 13:07 SP TYPE: EGD BIOPSY OTHR DR: [facility] Tissues: A - Duodenum, NOS B - Gastric mucous membrane C - Esophageal mucous membrane D - Esophageal mucous membrane E - Cecum, NOS F - Sigmoid colon biopsy Procedures: Trichrome (control) Special Stain Group II Surgery Specimen Level IV Alcian Blue/PAS (control) HEADER OPERATION: [place], [place] with biopsies PRE-OP DIAGNOSIS: Abdominal distention and pain, COPD TISSUE SUBMITTED: A - Duodenal biopsy, B - Antrum biopsy for histo and H. pylori, C - Distal esophagus biopsy, D - Mid esophagus biopsy, E - Cecal biopsy of pigmented mucosa, F - Distal sigmoid polyp x2 MICROSCOPIC DIAGNOSIS A. Duodenum, biopsy: A fragment of duodenal mucosa, no pathologic diagnosis. B. Antrum, biopsy: Mild gastritis. See microscopic description and comment. C. Distal esophagus, biopsy: Fragments of gastroesophageal mucosa with mild to moderate chronic inflammation. Intestinal metaplasia (goblet cell metaplasia) is not identified. See comment. D. Mid esophagus, biopsy: A fragment of squamous epithelium with mild chronic inflammation. E. Cecal biopsy of pigmented mucosa: A fragment of colonic mucosa with congestion. See comment. F. Distal sigmoid polyp x2, biopsy: Fragments of colonic mucosa with focal changes suggestive of hyperplastic polyp. SJ:kathya 03/26/2022 COMMENT B. The results of immunohistochemistry for Helicobacter pylori will be reported separately ([id number]). C. Alcian blue/PAS stain with matched control is used in the evaluation of the specimen. E. Mildly increased number of muciphages are noted. Pigment laden macrophages consistent with melanosis coli are not seen. Trichrome stain with matched control is used in the evaluation of the specimen and does not show significant thickening of subepithelial of collagen band. Case has been reviewed in consultation with Dr. Hill who concurs with the above diagnosis. IDC:AM MICROSCOPIC DESCRIPTION Slides are reviewed. B. The specimen shows fragments of gastric mucosa with chronic inflammatory cell infiltrates in the lamina propria consisting of lymphocytes and plasma cells, consistent with mild chronic gastritis. GROSS DESCRIPTION A - Received in fixative is one container labeled with the patient's name and designated duodenum biopsy. The specimen consists of one irregular fragment of light soto soft tissue that measures 0.5 x 0.2 x 0.1 cm. The specimen is totally submitted in one cassette. B - Received in fixative is one container labeled with the patient's name and designated antrum biopsy. The specimen consists of one irregular fragment of light soto soft tissue that measures 0.3 x 0.3 x 0.1 cm. The specimen is totally submitted in one cassette. C - Received in fixative is one container labeled with the patient's name and designated distal esophagus biopsy. The specimen consists of multiple irregular fragments of light soto soft tissue that in aggregate measure 1 x 0.3 x 0.1 cm. The specimen is totally submitted in one cassette. D - Received in fixative is one container labeled with the patient's name and designated mid esophagus biopsy. The specimen consists of one irregular fragment of light soto soft tissue that measures 0.5 x 0.3 x 0.1 cm. The specimen is totally submitted in one cassette. E - Received in fixative is one container labeled with the patient's name and designated cecal biopsy of pigmented mucosa. The specimen consists of one irregular fragment of light soto soft tissue that measures 0.3 x 0.3 x 0.1 cm. The specimen is totally submitted in one cassette. F - Received in fixative is one container labeled with the patient's name and designated distal sigmoid polyps x2. The specimen consists of two irregular fragments of light soto soft tissue that in aggregate measure 0.4 x 0.3 x 0.1 cm. The specimen is totally submitted in one cassette. / SJ:rg 03/25/2022 TC:3 CPT: 64454 x6, 77100 x2
--- NOTE | 2022-03-25 09:29 | PCM.HP.BLA ---
History and Physical Date of Admission: 03/25/22 Intake Visit Reasons: UPPER AND LOWER SCOPE Chief Complaint: c-scope/egd Founder President And Ceo Required: No Is patient in pain?: No Allergies No Known Allergies Allergy (Verified 02/20/22 13:29) Medications albuterol sulfate [Ventolin HFA] 1 inh INHALATION Q6H #8.5 g 10/18/21 [Rx Confirmed 02/20/22] amlodipine 10 mg PO DAILY 12/23/21 [History Confirmed 02/20/22] carvedilol 12.5 mg PO DAILY 12/23/21 [History Confirmed 02/20/22] melatonin 3 mg PO QHS 12/23/21 [History Confirmed 02/20/22] multivitamin 1 tab PO DAILY 12/23/21 [History Confirmed 02/20/22] omeprazole 20 mg PO DAILY 12/23/21 [History Confirmed 02/20/22] pravastatin 80 mg PO QHS 12/23/21 [History Confirmed 02/20/22] tamsulosin 0.4 mg PO QHS 12/23/21 [History Confirmed 02/20/22] nystatin 100,000 unit BUCCAL DAILY 01/14/22 [History Confirmed 02/20/22] prednisone 50 mg PO DAILY 5 Days #5 tab 01/14/22 [Rx Confirmed 02/20/22] simethicone 80 mg PO 4X/DAY 01/14/22 [History Confirmed 02/20/22] tiotropium bromide [Spiriva Respimat] 2 puff INHALATION DAILY 01/14/22 [History Confirmed 02/20/22] PFSH Medical History Acute maxillary sinusitis, unspecified Bilateral pneumonia COPD (chronic obstructive pulmonary disease) Encounter for screening for COVID-19 Former smoker Hypertension Smoking greater than 40 pack years Surgical History H/O wrist surgery Hx of appendectomy Family History Father Cancer Heart disease Mother Heart disease Myocardial infarction Social History household members: spouse Smoking Status: Former smoker quit date: 09/26/21 pack-years: 90 Tobacco: How many years used: 60 alcohol intake: former substance use type: does not use HPI HPI HPI: ORA GARCÍA, is a 71 M who presents to the office today for surgical consultation about possibly pursuing combined upper and lower endoscopy. The patient is referred by the [place] [facility] and a written copy of my surgical consult recommendations will be returned to them. The patient is having concerns with left upper quadrant abdominal pain. On reviewing things with the patient he claims that for at least a year or year and a half he has been having tight abdominal bloating. He notes that he eats a bologna sandwich he will bloat up and distend. He has been having some nondescript left upper quadrant pain. He was a long-term cigarette smoker recently quit September 2021. He has COPD and is on 2 L of nasal prong oxygen as needed There is a report that approximately 3 years ago he states that he had a colonoscopy performed and there is a suggestion that he had a piecemeal resection of a polyp. I have a copy of that report dated February 09, 2019 suggesting a single diminutive sessile polyp found in the cecum that was partially removed by cold biopsy polypectomy. There was evidence of a prior tattoo in the ascending colon but no residual polyp. A single diminutive sessile polyp was seen in the descending colon and was completely removed by cold biopsy polypectomy. He has not noticed any bright red blood per rectum or melena As of January 13, 2022 white blood cell count was 10.7 with a hemoglobin 16.2 hematocrit 48.1 platelet count 258,000. Glucose was 223. BUN 12 and creatinine 1.11. AST 59 slight elevated alkaline phosphatase 78 and ALT slightly elevated at 141. Repeat laboratory was obtained January 29, 2022 notable for an AST of 43 and ALT of 99 and alk phos all stays of 90 total bilirubin 0.5 albumin of 3.9 cholesterol 219 with an LDL 153 HDL 66 triglycerides 172 November 2021 his hemoglobin A1c was 7.8. He also has a PSA level that was 9.87 ROS General General: No weight change, appetite, fatigue, colon cancer, breast cancer or weakness HEENT HEENT: No difficulty swallowing, eye injury, eye surgery, swollen glands or hoarseness Endo Endocrine: Yes diabetes mellitus; No thyroid disease, thyroid cancer, Hair loss, heat intolerance or cold intolerance Skin Skin: Yes rash; No changing moles Breast Breast: No left breast lump, right breast lump, nipple discharge, breast pain, abnormal mammogram, abnormal US or breast enlargement [facility] Musculoskeletal: Yes arthritis and rheumatoid arthritis; No back problems, gout or joint pain Cardio Cardiovascular: Yes high blood pressure; No murmur, pacemaker, heart disease, atrial fibrillation, heart attack, heart stent, palpitations, shortness of breat with exertion or chest pain Psych Psychiatric: No depression, anxiety or hearing voices Resp Respiratory: Yes shortness of breath, No sleep apnea, No cough, Yes COPD, No asthma, No emphysema and No wheezing Gastro Gastrointestinal: No abdominal pain, No nausea or vomiting, No diarrhea, No constipation, No blood in stool, Yes acid reflux, No hemorrhoids, No ulcers, No gallbladder problem and No black,tarry stools Chevy Hematologic: No blood thinners, No blood disorders, No bleeding, No anemia and No blood clots Neuro Neurologic: No system reviewed and no additional complaints, except as documented, No as per HPI, No abnormal gait, No abnormal hearing, No abnormal movements, No abnormal speech, No behavioral changes, No burning sensations, No confusion, No convulsions, No disequilibrium, No dizziness, No localized weakness, No frequent falls, No headache(s), No lack of coordination, No loss of vision, No memory loss, No numbness, No other visual disturbances, No radicular pain, No restless legs, No sensory deficit, No syncope, No tingling, No tremor(s), No weakness and No other Exam Const General: cooperative, comfortable and no acute distress Nutritional Appearance: obese Other: Patient is hard of hearing but is able to understand [facility] Head: normal to inspection Eyes General: appearance normal, both eyes and all related structures Chest Other: Increased anterior posterior diameter Resp Effort & Inspection: normal respiratory effort Auscultation: clear to auscultation bilaterally Cardio Rate: regular rate Rhythm: regular rhythm GI Other: Patient's abdomen is notably distended, nontender, I cannot detect any internal organs due to the degree of distention, bowel sounds present and active but otherwise nondescript, [facility] Cervical Spine: normal cervical lordosis Skin General: no rashes or lesions noted Neuro General: patient alert, patient awake and patient oriented x3 Extrem General: no calf tenderness Psych Appearance: grossly normal Assessment and Plan Assessment and Plan (1) Abdominal distention: Status: Acute (2) Abdominal pain: Status: Acute Qualifiers: Abdominal location: generalized Qualified Code(s): R10.84 - Generalized abdominal pain (3) COPD (chronic obstructive pulmonary disease): Status: Acute Qualifiers: COPD type: unspecified COPD Qualified Code(s): J44.9 - Chronic obstructive pulmonary disease, unspecified Orders: Orders: Abdomen/Pelvis WITH Contrast Today R14.0 Plan - Dr. Mikael Singletary MD: 71-year-old gentleman. He has a personal history of colon polyps. A year and a half of abdominal distention. Some left upper quadrant pain but also generalized abdominal tension. No bright red blood per rectum or melena. Eating will aggravate the distention and cause increased abdominal discomfort and bloating. He is on omeprazole 20 mg daily. The degree of abdominal distention is impressive. I propose for him a CT of the abdomen and pelvis contrasted to evaluate for possible bowel obstruction. I propose for him a combined esophagogastroduodenoscopy with possible biopsy and colonoscopy with possible biopsy or polypectomy as indicated. He is aware of the technique, benefit, risk, alternatives. We will schedule procedure at his discretion. I very much appreciate the kind opportunity of assisting with the surgical care. Copy: [facility]. Patient also states that he has physician in [facility] Dr.Laura Toshia Singletary M.D., F.A.C.S 2021 [facility] [id number] [place] [id number] Abdomen/Pelvis WITH Contrast MR#: [id number]:[id number]: NAUN GARCÍA ep #:[id number]: 1950M 71 From: Juan Francisco Esquivel MDPCP:[place], [place] Status:REG CLIStudy:Abdomen/Pelvis WITH Contrast Date of Exam:02/20/22Exam#[id number] Ordering Dr: Mikael Singletary MD STUDY: CT Abdomen And Pelvis W/ Contrast Injection 02/20/2022 5:04 PM REASON FOR EXAM: Male, 71 years old. Abdominal pain abd pain Individualized dose optimization techniques were used for this CT. COMPARISON: 01.13.22. TECHNIQUE: CT Abdomen And Pelvis W/ Contrast Injection Oral and IV Gastrografin and ; 100mL Isovue-300 FINDINGS: There are atherosclerotic calcifications of visualized coronary arteries. The visualized portions of the heart are within normal limits. Stable enhancing liver lesion of the right lobe of the liver. Normal gallbladder and extrahepatic biliary system. Normal spleen. Normal pancreas. Normal bilateral adrenal glands. There are hypodensities in the right kidney. These are consistent for cysts. No follow up required. No acute findings of the left kidney. Normal visualized stomach. Normal small intestine. Stool throughout the colon. There is non-visualization of the appendix. There are calcifications of the abdominal aorta. This is consistent for atherosclerotic disease. There is 34 mm abdominal aortic aneurysm. Normal inferior vena cava. Subcentimeter mesenteric lymph nodes. Normal urinary bladder. There is an umbilical hernia containing fat. Normal osseous structures. IMPRESSION: (NOT LISTED IN ORDER OF SIGNIFICANCE) 34 mm abdominal aortic aneurysm. Stable enhancing liver lesion of the right lobe of the liver. Other findings as above. Electronically Signed: Juan Francisco Esquivel MD at 17:07 EDT , CT/Abdomen/Pelvis WITH Contrast Plan to proceed with endoscopic evaluation because of ongoing abdominal concerns. Mikael Singletary M.D., F.A.C.S.
[2022-03-25] MEDS: Lactated Ringers 1,000 ML 15 ML IV (09:45)
[2022-03-25 09:51] LABS: Bedside Glucose 171 mg/dL (74-106)
--- NOTE | 2022-03-25 10:15 | IMM_PTH ---
PATIENT: NAUN GARCÍA LOC: EN U#:[id number] AGE/SX: 71/M ROOM: RE03/25/[address]: Dr. Mikael Singletary MD : 1950 BED: DIS: 03/25/2022 SPEC #: [id number] RECD: 03/25/22 13:21 STATUS: DIANA SUKHWINDER #: [id number] LILY: 03/25/22 10:[address]: Mikael Singletary DEPT: IMMUNOHISTOCHEMISTRY RECD BY: Kaylyn Lozano ENTERED: 03/25/22 13:21 SP TYPE: IMMUNO OTHR DR: [facility] Tissues: B - Stomach, NOS Procedures: H Pylori (initial) PHYSICIAN & INSTITUTION [place] [address] SPECIMEN INFORMATION: Tissue Source: B ? Antrum biopsy Clinical Info: Abdominal distention and pain, COPD Specimen Number: [id number] CPT code: 81332 METHODOLOGY: Deparaffinized sections of prefer/formalin-fixed tissue or PAP/DQ stained slides are incubated with monoclonal/polyclonal antibodies/oligonucleotide probes. Localization is made via biotin free immunoperoxidase method. Appropriate controls are performed and reacted as expected. Results on target cell population are indicated in the following table: RESULTS: ANTIBODY / CLONE RESULT Block B H Pylori (polyclonal) negative These tests were developed and their performance characteristics determined by [facility]. They may not have been cleared or approved by the U.S. Food and Drug Administration. The FDA has determined that such clearance or approval is not necessary. The above immunohistochemical/dualISH markers are ordered and reviewed by the Pathologist. INTERPRETATION: B. Antrum biopsy: Negative for Helicobacter pylori organisms. SJ:kathya 03/26/2022
--- NOTE | 2022-03-25 11:31 | OP.EGD_ITS ---
Patient Name: Darby Vitale Procedure Date: 03/25/2022 10:57 AM Date of : 1950 Age: 71 Procedure: Upper GI endoscopy Indications: Generalized abdominal pain Providers: Mikael Singletary MD Medicines: See the Anesthesia note for documentation of the administered medications Complications: No immediate complications. Procedure: Pre-Anesthesia Assessment: - Prior to the procedure, a History and Physical was performed, and patient medications and allergies were reviewed. The patient's tolerance of previous anesthesia was also reviewed. The risks and benefits of the procedure and the sedation options and risks were discussed with the patient. All questions were answered, and informed consent was obtained. Prior Anticoagulants: The patient has taken no previous anticoagulant or antiplatelet agents. ASA Grade Assessment: II - A patient with mild systemic disease. After reviewing the risks and benefits, the patient was deemed in satisfactory condition to undergo the procedure. After obtaining informed consent, the endoscope was passed under direct vision. Throughout the procedure, the patient's blood pressure, pulse, and oxygen saturations were monitored continuously. The colonoscope was introduced through the mouth, and advanced to the second part of duodenum. The upper GI endoscopy was accomplished without difficulty. The patient tolerated the procedure well. Scope In: 11:03:56 AM Scope Out: 11:11:01 AM Total Procedure Duration Time 0 hours 7 minutes 5 seconds Findings: LA Grade A (one or more mucosal breaks less than 5 mm, not extending between tops of 2 mucosal folds) esophagitis with no bleeding was found 42 cm from the incisors. Biopsies were taken with a cold forceps for histology. The middle third of the esophagus was normal. Biopsies were taken with a cold forceps for histology. A small hiatal hernia was present. Diffuse mild inflammation characterized by erythema was found in the gastric antrum. Biopsies were taken with a cold forceps for histology. The examined duodenum was normal. Biopsies were taken with a cold forceps for histology. Impression: - LA Grade A reflux esophagitis. Biopsied. - Normal middle third of esophagus. Biopsied. - Small hiatal hernia. - Chronic gastritis. Biopsied. - Normal examined duodenum. Biopsied. Recommendation: - Discharge patient to home. - Resume previous diet. - Continue present medications. - Telephone my office for pathology results in 1 week. Mild findings, might correlate with LUQ discomfort but not generalized distention Procedure Code(s): --- Professional --- 50904, Esophagogastroduodenoscopy, flexible, transoral; with biopsy, single or multiple Diagnosis Code(s): --- Professional --- K21.0, Gastro-esophageal reflux disease with esophagitis K44.9, Diaphragmatic hernia without obstruction or gangrene K29.50, Unspecified chronic gastritis without bleeding R10.84, Generalized abdominal pain CPT copyright 2017 [employer]. All rights reserved. The codes documented in this report are preliminary and upon warehouse picker review may be revised to meet current compliance requirements. Mikael Singletary MD 03/25/2022 11:30:45 AM This report has been signed electronically. Number of Addenda: 0 Note Initiated On: 03/25/2022 10:57 AM
--- NOTE | 2022-03-25 11:31 | OP.CCLET_ITS ---
03/25/2022 [facility] Re : Upper GI endoscopy procedure for [facility] This procedure was performed on Friday, March 25, 2022. My impressions and recommendations are as follows: Impressions : - LA Grade A reflux esophagitis. Biopsied. - Normal middle third of esophagus. Biopsied. - Small hiatal hernia. - Chronic gastritis. Biopsied. - Normal examined duodenum. Biopsied. Recommendations : - Discharge patient to home. - Resume previous diet. - Continue present medications. - Telephone my office for pathology results in 1 week. Mild findings, might correlate with LUQ discomfort but not generalized distention My findings are described in the full procedure note, which is enclosed. If I can be of further assistance, please feel free to contact me at Doctor phone number(s): Work: . Sincerely, Mikael Singletary MD 03/25/2022 11:30:45 AM This report has been signed electronically.
--- NOTE | 2022-03-25 11:38 | OP.CCLET_ITS ---
03/25/2022 [facility] Re : Colonoscopy procedure for [facility] This procedure was performed on Friday, March 25, 2022. My impressions and recommendations are as follows: Impressions : - Non-thrombosed external hemorrhoids, non-thrombosed internal hemorrhoids, internal hemorrhoids that prolapse with straining, but spontaneously regress to the resting position (Grade II) and enlarged prostate found on digital rectal exam. - Melanosis in the colon. Biopsied. - Two 3 to 4 mm polyps in the distal sigmoid colon, removed with a cold biopsy forceps. Resected and retrieved. - Diverticulosis in the sigmoid colon. Recommendations : - Discharge patient to home. - Resume previous diet. - Continue present medications. - Repeat colonoscopy in 5 years for surveillance. - Telephone my office for pathology results in 1 week. No findings that explain abdominal bloating. My findings are described in the full procedure note, which is enclosed. If I can be of further assistance, please feel free to contact me at Doctor phone number(s): Work: . Sincerely, Mikael Singletary MD 03/25/2022 11:37:14 AM This report has been signed electronically.
--- NOTE | 2022-03-25 11:38 | OP.COLON_ITS ---
Patient Name: Darby Vitale Procedure Date: 03/25/2022 11:11 AM Date of : 1950 Age: 71 Procedure: Colonoscopy Indications: Generalized abdominal pain Providers: Mikael Singletary MD Medicines: See the Anesthesia note for documentation of the administered medications Patient Profile: Last Colonoscopy: date unknown. Complications: No immediate complications. Procedure: Pre-Anesthesia Assessment: - Prior to the procedure, a History and Physical was performed, and patient medications and allergies were reviewed. The patient's tolerance of previous anesthesia was also reviewed. The risks and benefits of the procedure and the sedation options and risks were discussed with the patient. All questions were answered, and informed consent was obtained. Prior Anticoagulants: The patient has taken no previous anticoagulant or antiplatelet agents. ASA Grade Assessment: II - A patient with mild systemic disease. After reviewing the risks and benefits, the patient was deemed in satisfactory condition to undergo the procedure. After I obtained informed consent, the scope was passed under direct vision. Throughout the procedure, the patient's blood pressure, pulse, and oxygen saturations were monitored continuously. The colonoscope was introduced through the anus and advanced to the cecum, identified by appendiceal orifice and ileocecal valve. The colonoscopy was performed without difficulty. The patient tolerated the procedure well. The quality of the bowel preparation was good. The ileocecal valve and the appendiceal orifice were photographed. Scope In: 11:12:27 AM Scope Withdrawal Time 0 hours 7 minutes 37 seconds Scope Out: 11:23:30 AM Total Procedure Duration Time 0 hours 11 minutes 3 seconds Findings: The digital rectal exam findings include non-thrombosed external hemorrhoids, non-thrombosed internal hemorrhoids, internal hemorrhoids that prolapse with straining, but spontaneously regress to the resting position (Grade II) and enlarged prostate. A localized area of mild melanosis was found in the cecum. Biopsies were taken with a cold forceps for histology. Two sessile polyps were found in the distal sigmoid colon. The polyps were 3 to 4 mm in size. These polyps were removed with a cold biopsy forceps. Resection and retrieval were complete. A few diverticula were found in the sigmoid colon. Impression: - Non-thrombosed external hemorrhoids, non-thrombosed internal hemorrhoids, internal hemorrhoids that prolapse with straining, but spontaneously regress to the resting position (Grade II) and enlarged prostate found on digital rectal exam. - Melanosis in the colon. Biopsied. - Two 3 to 4 mm polyps in the distal sigmoid colon, removed with a cold biopsy forceps. Resected and retrieved. - Diverticulosis in the sigmoid colon. Recommendation: - Discharge patient to home. - Resume previous diet. - Continue present medications. - Repeat colonoscopy in 5 years for surveillance. - Telephone my office for pathology results in 1 week. No findings that explain abdominal bloating. Procedure Code(s): --- Professional --- 53407, Colonoscopy, flexible; with biopsy, single or multiple Diagnosis Code(s): --- Professional --- K63.89, Other specified diseases of intestine D12.5, Benign neoplasm of sigmoid colon K64.1, Second degree hemorrhoids K64.4, Residual hemorrhoidal skin tags R10.84, Generalized abdominal pain N40.0, Benign prostatic hyperplasia without lower urinary tract symptoms K57.30, Diverticulosis of large intestine without perforation or abscess without bleeding CPT copyright 2017 [employer]. All rights reserved. The codes documented in this report are preliminary and upon customer support manager review may be revised to meet current compliance requirements. Mikael Singletary MD 03/25/2022 11:37:14 AM This report has been signed electronically. Number of Addenda: 0 Note Initiated On: 03/25/2022 11:11 AM
== END 2022-03-25 12:27 | disposition home or self-care (01) ==
LOC: EN 09:02 → AC 09:03
PROVIDERS: Visit Provider Surgery
PROC: 0DJD8ZZ Inspection of Lower Intestinal Tract, Via Natural or Artificial Opening Endoscopic (ICD-10-PCS; CPT 45378; principal; 2022-03-25 10:10)
DX: Z12.11 Encounter for screening for malignant neoplasm of colon (principal); J44.9 Chronic obstructive pulmonary disease, unspecified; E11.9 Type 2 diabetes mellitus without complications; K63.5 Polyp of colon; K64.1 Second degree hemorrhoids; N40.0 Benign prostatic hyperplasia without lower urinary tract symptoms; K57.30 Diverticulosis of large intestine without perforation or abscess without bleeding; K21.00 Gastro-esophageal reflux disease with esophagitis, without bleeding; K44.9 Diaphragmatic hernia without obstruction or gangrene; K29.50 Unspecified chronic gastritis without bleeding; K64.4 Residual hemorrhoidal skin tags; I10 Essential (primary) hypertension; E66.9 Obesity, unspecified; F32.A Depression, unspecified; E78.00 Pure hypercholesterolemia, unspecified; K63.89 Other specified diseases of intestine; Z79.899 Other long term (current) drug therapy; Z87.891 Personal history of nicotine dependence; Z99.81 Dependence on supplemental oxygen; Z68.30 Body mass index [BMI] 30.0-30.9, adult
CPT/HCPCS: 45380; 43239; 82962; 88305; 88313; 88342; J7120; J2405

== ENCOUNTER 2022-04-04 13:00 | Outpatient (RCR) | payer OTHER, SELFPAY ==
--- NOTE | 2022-03-24 08:32 | PR.ITP_ITS ---
Exercise - 30-Day Assessment - Visit Date of Eval: 03/24/22 Session Number:: 11 - Physician Prescribed Exercise Modalities: Treadmill, Biodyne - Schwinn Airdyne -, NuStep Intensity: 60-80% of age predicted maximum heart rate reserve Aerobic Exercise [30-60 min 3-7x/week]:: Progressing Jessica-13 Current METSs:: 4.0 Target HR:: 126 - 96-126 THRR Current RPD:: 3 Maximum Exercise HR:: 113 Resting Blood Pressure: 112/54 Maximum Exercise Blood Pressure: 180/100 Minimum SpO2 with exercise: 90 EKG Type: Sinus tachycardia with rare PVCs, occasional multifocal PVCs Current Minutes of Exercise: 38 Nutrition/Wt Mgmt - 30-Day - Visit Date of Eval: 03/24/22 Session Number:: 11 - Weight Management Height: 5 ft 11 in Weight:: 225 lb 8 oz - BMI: 31.4 Weight Goals Progress:: Referral to structured weight management program Psychosocial - 30-Day - Visit Date of Eval: 03/24/22 Session Number:: 11 - Problems/Goals History of Emotional Disorders: None - Psychosocial Test Tool Used:: PHQ-9 Questionnaire PHQ-9 Score: 5 - Referral to Behavioral Health PS - Interventions: Yes Attend Stress Management Classes, No Referral to Behavioral Health if PHQ-9 score >9:, No Referral to [facility], No Referral to Physician if PHQ-9 if score is 5-9: - Plan Interventions/Plan:: Assess stressors,coping strategies & signs of derpression on admission, Instruct/assist pt to develop coping & personal stress Mgt strategies, Instruct patient to recognize signs & symptoms of depression, Instruct patient to recog Oxygen & Oxygen Titration 30D - Visit Date of Eval: 03/24/22 Session Number:: 11 - Reassessment Reassessment- 30 Days: Demonstrate knowledge of O2 Rx at rest & w/exercise Breath Sounds:: Insp. & Exp. Wheezing - mild SpO2:: 93 - room air upon arrival Core Components - Initial Core Components - 30 DAYS - Visit Date of Eval: 03/24/22 Session Number:: 11 - Hypertension Hypertension Diagnosis:: Hypertension ICD-10 I10 Resting Blood Pressure:: 112/54 Citizen [place] [employer] Hypertension Guidelines: Citizen [place] [employer] Hypertension Guidelines. Normal BP Less than 120/80. Elevated BP 120/80. Hypertension Stage 1: BP 130-139/80-89. Hypertesnion Stage 2: BP 140 or higher/90 or higher. Hypertension Crisis: BP higher than 180/120 Peak Exercise Blood Pressure:: 180/100 Change in medication: No Outcomes/Goals: Able to verbalize/achieve optimal blood pressure <130/80, Incorporates diet changes & exercise for blood pressure control by DC Interventions/plan: Instruct on optimal blood pressure, hypertension & medications, Instruct on effects of sodium, alcohol, stress, exercise &hypertension 30 day Reassessments:: Progressing - Exacerbation Mgmt & Airway Clearance Reassessment: Demonstrates knowledge of O2 Rx at rest, Demonstrates knowledge of O2 Rx with exercise Bronchial Hygiene Plan: Yes Pt demo correct for improved hydration, Yes Pt demo correct for hand hygiene, Yes Pt demo correct for verbalize when to call MD - Medication Medication list reviewed:: Yes Taking medications 100% of the time:: Met Medication reassessment: Yes Pt demonstrates correct technique timing for MDI, Yes Pt demonstrates correct technique timing for DPI, Yes Pt demonstrates correct technique timing for NEB, Yes Pt demonstrates correct technique timing for spacer - Diabetes Diabetes:: Yes Fasting blood glucose:: 0 - not avaliable Hgb A1C: na BMI:: 31.4 Insulin dependent injection/pump?: No Non-Insulin Dependent?: Yes Do you monitor your blood sugar at home?: No Referral to Diabetic Clinic:: Yes Refer to Nutritional Services: Medical Nutrition Therapy 30-day Reassessments:: Progressing - Heart Failure Documenting weight anselmo: No Core Components - 60 DAYS Core Components - 90 DAYS Core Components - Final Patient Health Questionnaire 30-Day Re-eval Assessment 1. Little interest or pleasure in doing things: Several days 2. Feeling down, depressed, or hopeless: Several days 3. Trouble falling or staying asleep, or sleeping too much: Several days 4. Feeling tired or having little energy: Several days 5. Poor appetite or overeating: Several days 6. Feeling bad about yourself -- or that you are a failure or have let yourself or your family down: Not at all 7. Trouble concentrating on things, such as reading the newspaper or watching television: Not at all 8. Moving or speaking so slowly that other people could have noticed. Or the opposite - being so fidgety or restless that you have been moving around a lot more than usual: Not at all 9. Thoughts that you would be better off , or of hurting yourself in some way: Not at all How difficult have these problems made it for you to do your work, take care of things at home, or get along with other people?: Somewhat difficult Total Score: 5 Knowledge Questionaire (BCKQ) - Information Information: [place] COPD Knowledge Questionnaire (BCKQ) This questionnaire is designed to find out what you know about your lung problem. It should be completed without help form anyone else. This usually takes between 10 and 20 minutes. Your answers will help us to find out what information you need to help you to understand and manage your lung condition. Elliot the cachil dehe which you think is the correct answer. Self-Efficacy 30-Day Re-eval Assessment We would like to know how confident you are in doing certain activities. Please select your confidence level for:: Select your confidence level for the following using the scale 1-10 where 1 is not at all confident and 10 is totally confident. Your score is the average of all 6 responses. Fatigue: How confident are you that you can keep the fatigue caused by your disease from interfering with the things you want to do? Select Number: 7 Physical Discomfort or Pain: How confident are you that you can keep the physical discomfort or pain of your disease from interfering with the things you want to do? Select Number: 6 Emotional Distress: How confident are you that you can keep the emotional distress caused by your disease from interfering with the things you want to do? Select Number: 6 Other Symptoms or Health Problems: How confident are you that you can keep other symptoms or health problems from interfering with the things you want to do? Select Number: 6 Different Tasks and Activities: How confident are you that you can do the different tasks and activities needed to manage your health condition so as to reduce your need to see a doctor? Select Number: 8 Medication: How confident are you that you can do things other than just taking medication to reduce how much your illness affects your everyday life? Select Number: 8 Total Score:: 6 Nutrition Survey
[2022-03-24 08:46] VITALS: BP 112/54; BP 180/100; O2SAT 93; BMI 31.4
== END 2022-04-08 23:59 ==
LOC: PR 13:00
DX: J44.9 Chronic obstructive pulmonary disease, unspecified (principal)
CPT/HCPCS: 97150; 94626

== ENCOUNTER 2022-04-29 15:04 | Emergency (ER) | payer OTHER, SELFPAY ==
[2022-04-22 08:14] VITALS: BMI 30.6
[2022-04-29 15:05] VITALS: BP 169/100; PULSE 116; RESP 28; TEMP 36.3; O2SAT 96; BMI 29.8
[2022-04-29 15:31] VITALS: BP 159/97; PULSE 82; RESP 22; O2SAT 99
--- NOTE | 2022-04-29 16:07 | EKG12_ITS ---
Test Reason : SOB Blood Pressure : / mmHG Vent. Rate : 075 BPM Atrial Rate : 075 BPM P-R Int : 158 ms QRS Dur : 076 ms QT Int : 382 ms P-R-T Axes : 047 024 054 degrees QTc Int : 426 ms Normal sinus rhythm with sinus arrhythmia Normal ECG Confirmed by STEVEN PRATHER, ANA ([id number]), clinical editor TERA CAMPBELL ([id number]) on 05/01/2022 10:21:35 AM Referred By: NATALEE Confirmed By:ANA HARRIS MD
--- NOTE | 2022-04-29 16:09 | ED.VIS.DYS ---
HPI History of Present Illness Chief Complaint: Shortness of Breath Informant: patient Onset/Context/Timing Onset: Month(s) Context: gradual Timing: Continuous Quality: Positive for Wheezing Current Severity: Mild Maximum Severity: Mild Worsened by: Exertion and Coughing Relieved by: Oxygen Associated Symptoms cough and yellow sputum; Negative for fever, sore throat, subjective, chills or sweats Chest Pain: Positive for None Narrative Narrative: 69-year-old male history of COPD on 2 to 3 L of oxygen at home. History of diabetes and hypertension. Patient states he has been wheezing with a cough of yellowish sputum for 2 months. Denies any fever or chills. No chest pain. No hemoptysis. No vomiting diarrhea or fever. No leg pain or swelling. PE Risk Factors: Negative for Cancer, OCP + Smoking + > 35, Prior DVT or PE, Recent immobilization, Recent surgery or Recent travel Prior similar symptoms: Yes Recent Illness/Hospitalization: No PFSH PFSH Medical History Acute maxillary sinusitis, unspecified Alcohol use Arthritis Bilateral pneumonia COPD (chronic obstructive pulmonary disease) Depression Diabetes Easy bruising Encounter for screening for COVID-19 Former smoker Gastric reflux Hepatitis High cholesterol History of steroid therapy Hypertension Leg cramps On home oxygen therapy Shortness of breath on exertion Smoking greater than 40 pack years Wears dentures Wears glasses Wears hearing aid Home Medications amlodipine 10 mg tablet 10 mg PO DAILY 12/23/21 [History Last Taken Unknown] melatonin 3 mg tablet 3 mg PO QHS 12/23/21 [History Last Taken Unknown] multivitamin 1 tab PO DAILY 12/23/21 [History Last Taken Unknown] pravastatin 80 mg tablet 80 mg PO QHS 12/23/21 [History Last Taken Unknown] tamsulosin 0.4 mg capsule 0.4 mg PO QHS 12/23/21 [History Last Taken Unknown] simethicone 80 mg tablet 80 mg PO 4X/DAY 01/14/22 [History Last Taken Unknown] tiotropium bromide 2.5 mcg/actuation mist for inhalation (Spiriva Respimat) 2 puff inhalation DAILY 01/14/22 [History Last Taken Unknown] citalopram 10 mg tablet 10 mg PO DAILY 02/21/22 [History Last Taken Unknown] glipizide 5 mg tablet 5 mg PO DAILY 02/21/22 [History Last Taken Unknown] guaifenesin 200 mg tablet 200 mg PO Q4H PRN Cough 02/21/22 [History Last Taken Unknown] albuterol sulfate 90 mcg/actuation aerosol inhaler (Ventolin HFA) 1 inh inhalation PRN PRN SOB 03/24/22 [History Last Taken Unknown] fluticasone propionate 50 mcg/actuation nasal spray,suspension 1 spray intranasal DAILY 04/29/22 [History Last Taken Unknown] hydroxyzine pamoate 25 mg capsule 25 mg PO BID PRN Anxiety 04/29/22 [History Last Taken Unknown] pantoprazole 20 mg tablet,delayed release 20 mg PO DAILY 04/29/22 [History Last Taken Unknown] prednisone 20 mg tablet 40 mg PO DAILY COPD 7 days #14 tabs 04/29/22 [Rx Last Taken Unknown] propranolol 10 mg tablet 10 mg PO TID 04/29/22 [History Last Taken Unknown] Allergy/AdvReac Type Severity Reaction Status Date / Time No Known Allergies Allergy Verified 04/29/22 15:07 Family History Father Cancer Heart disease Mother Heart disease Myocardial infarction Surgical History H/O wrist surgery History of hand surgery Hx of appendectomy Hx of colonoscopy Social History household members: spouse Smoking Status: Former smoker quit date: 09/26/21 pack-years: 90 Tobacco: How many years used: 60 alcohol intake: former substance use type: does not use ROS ROS ED ROS Narrative Wheezing. Short of breath. Review of Systems ROS Unobtainable: Denies due to encephalopathy Constitutional Constitutional ED: Denies chills Eyes Eyes: Denies blurry vision ENT ENT ED: Denies ear pain Cardiovascular Cardiovascular: Denies chest pain Respiratory/Chest Respiratory/Chest: Reports cough, dyspnea and sputum Gastrointestinal Gastrointestinal: Denies abdominal pain or constipation Genitourinary Genitourinary ED: Denies dysuria Musculoskeletal Musculoskeletal: Denies arthralgias Integumentary Denies abscess Neurologic Neurologic: Denies headache(s) Psychiatric Psychiatric: Denies anxiety Hematologic/Lymphatic Hematologic/Lymphatic: Denies easy bleeding Allergic/Immunologic Allergic/Immunologic ED: Denies mouth swelling EXAM Physical Exam Narrative Exam Narrative: 5-year-old male vital signs are stable. On 3 L is 96%. He has not septic or toxic. He is audibly wheezing. H EENT exam unremarkable. Neck nontender no JVD. Lungs inspiratory and expiratory wheezing throughout both sides. Heart regular rhythm rate about 95 no murmur. Abdomen soft nontender. Moving all 4 extremities. Calves are nontender without edema or cords. Neurologically is awake and alert. Const Vital Signs: 04/29/22 15:05 04/29/22 15:31 04/29/22 16:11 Temperature 97.3 F L Temperature Source Temporal Pulse Rate 116 H 82 80 Respiratory Rate 28 H 22 H 17 Blood Pressure 169/100 H 159/97 H 141/75 H Blood Pressure Mean 123 117 97 Pulse Ox 96 99 97 Oxygen Delivery Method Nasal Cannula Nasal Cannula Nasal Cannula Oxygen Flow Rate (L/min) 3 3 3 04/29/22 16:26 Temperature Temperature Source Pulse Rate 82 Respiratory Rate 20 H Blood Pressure Blood Pressure Mean Pulse Ox Oxygen Delivery Method Oxygen Flow Rate (L/min) Positive well nourished, well developed and obese; Negative for cachectic or contractures General Appearance ED: well developed; Negative for cachectic, contractures or pallor Nutritional Appearance: obese; Negative for cachectic HEENT Reports moist mucous membranes atraumatic; Negative for trauma Eyes PERRL and EOMs intact bilaterally General Eye ED: Negative for pale conjunctiva or scleral icterus Neck no lymphadenopathy, supple, no meningeal signs and no JVD General: Negative for tenderness Resp No normal respiratory effort and No clear to auscultation bilaterally Auscultation: wheezes Cardio regular rate, regular rhythm, S1 normal heart sound and S2 normal heart sound Rate: Negative for bradycardia or tachycardic GI non-tender, non-distended and no masses Auscultation: normoactive bowel sounds Palpation: soft; Negative for tender or guarding Back/Spine no CVA tenderness and normal to inspection Extremity normal to inspection General Extremety ED: Negative for edema or tenderness General Extremity: Negative for edema Neuro oriented x3 and no sensory deficits noted Sensorium / Orientation: alert, oriented to person, oriented to place and oriented to time; Negative for orientation impaired, confused, lethargic or stuporous Speech: Negative for speech normal Motor Exam: strength 5/5 throughout; Negative for general weakness Psych mental status grossly normal Attitude: No agitated Mood & Affect: Negative for depressed Thought Process: normal thought process Skin no wounds General Skin Exam: Negative for jaundice or pallor Lesions: no lesions Rashes: no rashes Trauma: Negative for abrasion MDM MDM MDM Narrative Medical decision making narrative: Patient with shortness of breath with inspiratory expiratory wheezing consistent with COPD flare versus other etiologies. Cardiac work-up with chest x-ray will be obtained. Treated with p.o. prednisone and albuterol and DuoNeb aerosols. Patient is on home O2. Repeat exam patient doing well at 6:30 PM. Patient feels better after his steroids and aerosol treatments. I suspect this secondary to COPD. His labs and chest x-ray and EKG are unremarkable be discharged home on prednisone 40 mg a day for 1 week and follow-up with his primary care provider out of [place]. He knows return if worse. He has inhalers and aerosols at home along with oxygen. Lab Data Attestation: I reviewed the patient's lab results. Lab results narrative: CBC shows a white count of 6. H&H 14 and 41. Platelets 296. Electrolytes unremarkable gap is 6 normal BUN and creatinine. Glucose 168. Troponin 7. Chest x-ray chronic changes consistent with COPD. No infiltrate. Labs: Laboratory Results - last 24 hr 04/29/22 04/29/22 16:03 16:03 WBC 6.7 RBC 4.08 L Hgb 14.0 Hct 41.0 MCV 100.5 H MCH 34.3 H MCHC 34.1 RDW Std Deviation 50.4 H RDW Coeff of Tarik 13.9 Plt Count 296 MPV 9.8 Immature Gran % (Auto) 0.300 Neut % (Auto) 59.9 Lymph % (Auto) 18.8 L [place] % (Auto) 10.7 H Eos % (Auto) 9.8 H Baso % (Auto) 0.5 Absolute Neuts (auto) 4.0 Absolute Lymphs (auto) 1.25 Nucleated RBC % 0 Sodium 138 Potassium 3.9 Chloride 103 Carbon Dioxide 29.0 Anion Gap 6 BUN 9 Creatinine 0.96 Estim Creat Clear Calc 76.34 Est GFR (MDRD) Af Amer 99 Est GFR (MDRD) Non-Af 82 BUN/Creatinine Ratio 9.4 L Glucose 168 H Calcium 9.4 Troponin I High Sens 7 Radiography Chest X-Ray - ED: 1 View, Read by ED Physician, Heart, Lungs, Mediastinum, Bony Structures, No Acute Disease and Chronic Changes Diagnostic Testing: Clinical Impression(s) from Imaging Studies Chest X-Ray 04/29/22 16:10 IMPRESSION: Hyperinflation suggesting emphysema. No interval change. Electronically Signed: Antony Dixon MD at 16:41 EDT Reading Location ID and State: [facility] / [place] Tel , Service support , Chest x-ray, portable, single view interpreted myself and radiologist described changes consistent COPD. No acute process. Normal cardiac silhouette. No infiltrate. Rhythm Strip Rhythm Strip: Sinus Rhythm Rate: 75 Ectopy: None EKG Initial EKG: Attestation: I personally reviewed and interpreted this EKG as follows: Interpretation: Sinus Rhythm and No Acute Injury Pattern Comments: Normal sinus rhythm rate of 75. No signs of [place] no ischemia. Discharge Plan Triage Chief Complaint: Shortness of Breath ED Provider: Rodolfo Aponte Dx/Rx/DC Orders Clinical Impression: COPD exacerbation, History of diabetes mellitus Instructions: ED COPD Flare Prescriptions: New prednisone 20 mg tablet 40 mg PO DAILY 7 Days Qty: 14 0RF No Action multivitamin Tablet 1 tab PO DAILY melatonin 3 mg Tablet 3 mg PO QHS pravastatin 80 mg Tablet 80 mg PO QHS tamsulosin 0.4 mg Capsule 0.4 mg PO QHS amlodipine 10 mg Tablet 10 mg PO DAILY simethicone 80 mg Tablet 80 mg PO 4X/DAY Spiriva Respimat 2.5 mcg/actuation Mist 2 puff INHALATION DAILY citalopram 10 mg Tablet 10 mg PO DAILY guaifenesin 200 mg Tablet 200 mg PO Q4H PRN (Reason: Cough) glipizide 5 mg Tablet 5 mg PO DAILY albuterol sulfate [Ventolin HFA] 90 mcg/actuation HFA aerosol inhaler 1 inh inhalation PRN PRN (Reason: SOB) pantoprazole 20 mg Tablet,Delayed Release (Dr/Ec) 20 mg PO DAILY propranolol 10 mg Tablet 10 mg PO TID fluticasone propionate 50 mcg/actuation Baxter,Suspension 1 spray INTRANASAL DAILY Rx Instructions: administer into each nostril hydroxyzine pamoate 25 mg Capsule 25 mg PO BID PRN (Reason: Anxiety) [facility] - 1 Week Activity Restrictions/Additional Instructions: I think this is all secondary to a flare of your COPD. Your chest x-ray, EKG and labs were unremarkable. We will place her on prednisone 40 mg a day for the next week start tomorrow. Use your inhalers and aerosol treatment oxygen at home. Follow-up with your primary care provider next week to ensure you are improving. Return if worse. Disposition Disposition: Home, Self Care
--- NOTE | 2022-04-29 16:10 | RAD_ITS ---
EXAM: XR CHEST, 1 VIEW CLINICAL INDICATION: dyspnea TECHNIQUE: Frontal view of the chest. This report was created using [employer] report generation technology. COMPARISON: January 13, 2022. FINDINGS: LUNGS AND PLEURAL SPACES: Hyperinflation suggesting emphysema. No pneumothorax. No effusion. HEART: Unremarkable. Normal heart size. MEDIASTINUM: Central airways and mediastinal contour are unremarkable. BONES/JOINTS: Unremarkable. SOFT TISSUES: Unremarkable. RAD/Chest 1 View (Portable) IMPRESSION: Hyperinflation suggesting emphysema. No interval change. Electronically Signed: Antony Dixon MD at 16:41 EDT ,
[2022-04-29 16:11] VITALS: BP 141/75; PULSE 80; RESP 17; O2SAT 97
[2022-04-29] MEDS: Albuterol 2.5 MG/3 ML VIAL.NEB. INHALATION ×2 (16:19→16:20)
[2022-04-29] MEDS: Ipratropium/Albuterol Sulfate 3 ML AMPUL.NEB INHALATION (16:19)
[2022-04-29 16:26] VITALS: PULSE 82; RESP 20
[2022-04-29 16:26] LABS: Absolute Lymphocyte Count 1.25 X10^3/uL (0.83-4.51); Basophil# 0.03 X10^3/uL; Basophil% 0.5 % (0-1); Eosinophil# 0.65 X10^3/uL; Eosinophils% 9.8 % (0-5); Lymphocyte # 1.25 X10^3/ul (0.83-4.51); Lymphocyte % 18.8 % (19-41); Mean Corp Hgb Conc 34.1 g/dL (32-36); Mean Corpuscular Hgb 34.3 pg (27.0-32.0); Mean Corpuscular Volume 100.5 fL (80-94); Mean Platelet Vol. 9.8 fl (6.2-12.0); Monocyte# 0.71 X10^3/uL; Monocyte% 10.7 % (0-10); NRBC Flagged by Analyzer 0 % (0-5); Neutrophil % 59.9 % (47-70); Platelet Count 296 K/mm3 (150-450); RBC Distribution Width CV 13.9 % (11.6-14.6); RBC Distribution Width SD 50.4 fl (35.1-43.9); Red Blood Count 4.08 M/mm3 (4.6-6.2); White Blood Count 6.7 K/mm3 (4.4-11.0)
[2022-04-29] MEDS: predniSONE 20 MG Tablet 60 MG PO (16:39)
[2022-04-29 16:49] LABS: Anion Gap 6 (5-15); BUN 9 mg/dL (7-18); BUN/Creat Ratio 9.4 RATIO (10-20); Calcium,Total 9.4 mg/dL (8.5-10.1); Chloride 103 mmol/L (98-107); Creatinine, Serum 0.96 mg/dL (0.70-1.30); EST Glomerular Filtration Rate 82 mL/min (>60); Est Glom Filt Rate - Afr Amer 99 mL/min (>60); Estimated Creatinine Clearance 76.34 ml/min; Glucose 168 mg/dL (74-106); Potassium 3.9 mmol/L (3.5-5.1); Sodium Level 138 mmol/L (136-145); Troponin-I HS 7 pg/mL (3.0-78.0)
[2022-04-29 18:35] VITALS: BP 144/88; PULSE 82; RESP 25; O2SAT 98
== END 2022-04-29 18:44 | disposition home or self-care (01) ==
PROVIDERS: Emergency Provider Emergency Medicine; Visit Provider Emergency Medicine
DX: J44.1 Chronic obstructive pulmonary disease with (acute) exacerbation (principal); E11.9 Type 2 diabetes mellitus without complications; I10 Essential (primary) hypertension; E78.00 Pure hypercholesterolemia, unspecified; K21.9 Gastro-esophageal reflux disease without esophagitis; E66.9 Obesity, unspecified; Z68.29 Body mass index [BMI] 29.0-29.9, adult; Z99.81 Dependence on supplemental oxygen; Z79.84 Long term (current) use of oral hypoglycemic drugs; Z79.899 Other long term (current) drug therapy; Z87.891 Personal history of nicotine dependence
CPT/HCPCS: 71045; 80048; 84484; 85025; 93005; 94640; 99284; A4216

== ENCOUNTER 2022-05-07 13:00 | Outpatient (RCR) | payer OTHER, SELFPAY ==
[2022-03-24 08:46] VITALS: BMI 31.4
[2022-04-09 01:07] VITALS: BP 112/54; BP 180/100
--- NOTE | 2022-04-22 08:04 | PCM.PR.TP ---
Exercise - 60-Day Assessment - Visit Date of Eval: 04/22/22 Session Number:: 23 - Physician Prescribed Exercise Modalities: Treadmill, Biodyne, NuStep Intensity: 60-80% of age predicted maximum heart rate reserve Aerobic Exercise [30-60 min 3-7x/week]:: Progressing Current METSs: 4.5 Target HR:: 125 - THRR 96-125 Current RPD:: 3 Maximum Exercise HR:: 119 Resting Blood Pressure: 132/80 Maximum Exercise Blood Pressure: 200/100 Minimum SpO2 with exercise: 91 - 4 liters oxygen w/exercise EKG Type: Sinus tachycardia with PVCs, occasional multi-focal PVCs. Current Minutes of Exercise: 39:36 - Home Exercise Home Exercise:: No Nutrition/Wt Mgmt - 60-Day - Visit Date of Eval: 04/22/22 Session Number:: 23 - Weight Management Height: 6 ft Weight:: 226 lb BMI: 30.6 Weight Goals Progress:: Not progressing Psychosocial - 60-Day - Visit Date of Eval: 04/22/22 Session Number:: 23 - Problems/Goals Psychosocial Goals: 7. Improved Q.O.L. - Psychosocial Test Tool Used:: PHQ-9 Questionnaire - Referral to Behavioral Health PS - Interventions: Yes Referral to Physician if PHQ-9 if score is 5-9:, Yes Attend Stress Management Classes, No Referral to Behavioral Health if PHQ-9 score >9:, No Referral to [facility] - Plan Interventions/Plan:: Assess stressors,coping strategies & signs of derpression on admission, Instruct/assist pt to develop coping & personal stress Mgt strategies, Instruct patient to recognize signs & symptoms of depression, Instruct patient to recog Oxygen & Oxygen Titration 60D - Visit Date of Eval: 04/22/22 Session Number:: 23 - Reassessment Reassessment- 60 Days: Demonstrate knowledge of O2 Rx at rest & w/exercise, Using O2 as Rx'd, Has home O2 as Rx'd, Uses port O2 as Rx'd Breath Sounds:: Diminished, Insp. & Exp. Wheezing SpO2:: 95 - on 2 liters rest Core Components - Initial Core Components - 30 DAYS Core Components - 60 DAYS - Visit Date of Eval: 04/22/22 Session Number:: 23 - Hypertension Hypertension Diagnosis:: Hypertension ICD-10 I10 Resting Blood Pressure:: 132/80 Citizen [employer] [place] [employer] Hypertension Guidelines: Citizen [place] [employer] Hypertension Guidelines. Normal BP Less than 120/80. Elevated BP 120/80. Hypertension Stage 1: BP 130-139/80-89. Hypertesnion Stage 2: BP 140 or higher/90 or higher. Hypertension Crisis: BP higher than 180/120 Peak Exercise Blood Pressure:: 200/100 Change in medication: No Outcomes/Goals: Able to verbalize/achieve optimal blood pressure <130/80, Incorporates diet changes & exercise for blood pressure control by DC Interventions/plan: Instruct on optimal blood pressure, hypertension & medications, Instruct on effects of sodium, alcohol, stress, exercise &hypertension 60 day Reassessments:: Progressing - Exacerbation Mgmt & Airway Clearance Reassessment: Demonstrates knowledge of O2 Rx at rest, Demonstrates knowledge of O2 Rx with exercise, Using O2 as prescribed, Has home O2 as prescribed, Uses port O2 as prescribed Bronchial Hygiene Plan: Yes Pt demonstrates correctly for effective cough, Yes Pt demo correct for device - Spacer SMI - PFlex Device, Yes Pt demo correct for improved hydration, Yes Pt demo correct for hand hygiene, Yes Pt demo correct for verbalize when to call MD - Medication Medication list reviewed:: Yes Taking medications 100% of the time:: Approximately 75% of the time - Patient encouraged to regularly use his albuterol inhaler. Taking medications 100% of the time:: Approximately 75% of the time Medication reassessment: Yes Pt demonstrates correct technique timing for MDI, Yes Pt demonstrates correct technique timing for DPI, Yes Pt demonstrates correct technique timing for NEB, Yes Pt demonstrates correct technique timing for spacer 60-day Reassessments:: Progressing - Diabetes Diabetes:: No Core Components - 90 DAYS Core Components - Final Patient Health Questionnaire 60-Day Re-eval Assessment 1. Little interest or pleasure in doing things: Several days 2. Feeling down, depressed, or hopeless: Several days 3. Trouble falling or staying asleep, or sleeping too much: Several days 4. Feeling tired or having little energy: Several days 5. Poor appetite or overeating: Several days 6. Feeling bad about yourself -- or that you are a failure or have let yourself or your family down: Not at all 7. Trouble concentrating on things, such as reading the newspaper or watching television: Not at all 8. Moving or speaking so slowly that other people could have noticed. Or the opposite - being so fidgety or restless that you have been moving around a lot more than usual: Not at all How difficult have these problems made it for you to do your work, take care of things at home, or get along with other people?: Somewhat difficult Total Score: 5 Knowledge Questionaire (BCKQ) - Information Information: [place] COPD Knowledge Questionnaire (BCKQ) This questionnaire is designed to find out what you know about your lung problem. It should be completed without help form anyone else. This usually takes between 10 and 20 minutes. Your answers will help us to find out what information you need to help you to understand and manage your lung condition. [place] which you think is the correct answer. Self-Efficacy 60-Day Re-eval Assessment We would like to know how confident you are in doing certain activities. Please select your confidence level for:: Select your confidence level for the following using the scale 1-10 where 1 is not at all confident and 10 is totally confident. Your score is the average of all 6 responses. Fatigue: How confident are you that you can keep the fatigue caused by your disease from interfering with the things you want to do? Select Number: 8 Physical Discomfort or Pain: How confident are you that you can keep the physical discomfort or pain of your disease from interfering with the things you want to do? Select Number: 6 Emotional Distress: How confident are you that you can keep the emotional distress caused by your disease from interfering with the things you want to do? Select Number: 7 Other Symptoms or Health Problems: How confident are you that you can keep other symptoms or health problems from interfering with the things you want to do? Select Number: 7 Different Tasks and Activities: How confident are you that you can do the different tasks and activities needed to manage your health condition so as to reduce your need to see a doctor? Select Number: 8 Medication: How confident are you that you can do things other than just taking medication to reduce how much your illness affects your everyday life? Select Number: 8 Total Score:: 7 Nutrition Survey
[2022-04-22 08:14] VITALS: BP 132/80; BP 200/100; O2SAT 95; BMI 30.6
== END 2022-05-08 23:59 ==
LOC: PR 13:00
DX: J44.9 Chronic obstructive pulmonary disease, unspecified (principal)
CPT/HCPCS: 97150; 94626

== ENCOUNTER 2022-05-26 13:00 | Outpatient (RCR) | payer OTHER, SELFPAY ==
[2022-04-22 08:14] VITALS: BMI 30.6
[2022-05-09 00:38] VITALS: BP 132/80; BP 200/100
--- NOTE | 2022-05-21 08:00 | PR.ITP_ITS ---
Exercise - Final Assessment - Visit Date of Eval: 05/21/22 Session Number:: 32 - Physician Prescribed Exercise Modalities: Treadmill, Airdyne, NuStep Frequency (days/week): 3 Duration (Minutes):: 55:44 Aerobic Exercise [30-60 min 3-7x/week]:: Met Further followup [see D/C Summary]:: No Jessica Current METSs:: 4.5 limited by Max HR over THRR limit Target Heart Rate:: 96-125 Current RPD:: 3 Maximum Excercise HR:: 137 Resting Blood Pressure: 126/68 Maximum Exercise Blood Pressure: 158/92 Minimum SpO2 with exercise: 90 - with 02 @ 4 liters EKG Type: Sinus tachycardia with rare PVCs occasional multi-focal PVCs Current Minutes of Exercise: 36:24 - Home Exercise Home Exercise:: Yes Mode: Walking - and increasing physical activity Time (minutes):: 60 - > 60 minutes/day Psychosocial - Initial Assess - Visit Date of Eval: 05/21/22 Session Number:: 32 - Psychosocial Test Tool Used:: PHQ-9 Questionnaire - Referral to Behavioral Health PS - Interventions: Yes Attend Stress Management Classes, No Referral to Behavioral Health if PHQ-9 score >9:, No Referral to [facility], No Referral to Physician if PHQ-9 if score is 5-9: - Intervention/Plan: See List Interventions/Plan:: Assess stressors,coping strategies & signs of derpression on admission, Instruct/assist pt to develop coping & personal stress Mgt strategies, Instruct patient to recognize signs & symptoms of depression, Instruct patient to recog Oxygen & Oxygen Titration GERARD - Visit Date of Eval: 05/21/22 Session Number:: 32 - Reassessment Oxygen & Oxygen Titration Final: Continuous Home Use, Oxygen w/activity, Oxygen at HS Breath Sounds:: Diminished, Insp. & Exp. Wheezing SpO2:: 96 - on 4 liters at rest Exacerbation Date: 05/09/22 - put on antibiotic and prednisone taper dose Core Components - Initial Core Components - 30 DAYS Core Components - 60 DAYS Core Components - 90 DAYS Core Components - Final - Visit Date of Eval: 05/21/22 Session Number:: 32 - Hypertension Hypertension Diagnosis:: Hypertension ICD-10 I10 Resting Blood Pressure:: 126/68 [place] [employer] Hypertension Guidelines: [place] [employer] Hypertension Guidelines. Normal BP Less than 120/80. Elevated BP 120/80. Hypertension Stage 1: BP 130-139/80-89. Hypertesnion Stage 2: BP 140 or higher/90 or higher. Hypertension Crisis: BP higher than 180/120 Peak Exercise Blood Pressure:: 158/92 - Airdyne Bike Outcomes/Goals: Able to verbalize/achieve optimal blood pressure <130/80, Incorporates diet changes & exercise for blood pressure control by DC - Exacerbation Mgmt & Airway Clearance Final Assessment: Demonstrates knowledge of O2 Rx at rest, Demonstrates knowledge of O2 Rx with exercise, Using O2 as prescribed, Has home O2 as prescribed, Uses port O2 as prescribed Bronchial Hygiene Plan: Yes Pt demonstrates correctly for effective cough, Yes Pt demo correct for device - Spacer, Acapella, SMI returned demonstration, Yes Pt demo correct for improved hydration, Yes Pt demo correct for hand hygiene, Yes Pt demo correct for verbalize when to call MD - Medication Medication list reviewed:: Yes Taking medications 100% of the time:: Met Medication reassessment: Yes Pt demonstrates correct technique timing for MDI, Yes Pt demonstrates correct technique timing for DPI, Yes Pt demonstrates correct technique timing for NEB, Yes Pt demonstrates correct technique timing for spacer - Diabetes Diabetes:: Yes Insulin dependent injection/pump?: No Non-Insulin Dependent?: Yes Do you monitor your blood sugar at home?: No - Heart Failure Documenting weight daily: Yes Patient Health Questionnaire Discharge Assessment 1. Little interest or pleasure in doing things: Several days 2. Feeling down, depressed, or hopeless: Several days 3. Trouble falling or staying asleep, or sleeping too much: Several days 4. Feeling tired or having little energy: Several days 5. Poor appetite or overeating: Not at all 6. Feeling bad about yourself -- or that you are a failure or have let yourself or your family down: Not at all 7. Trouble concentrating on things, such as reading the newspaper or watching television: Not at all 8. Moving or speaking so slowly that other people could have noticed. Or the opposite - being so fidgety or restless that you have been moving around a lot more than usual: Not at all 9. Thoughts that you would be better off , or of hurting yourself in some way: Not at all How difficult have these problems made it for you to do your work, take care of things at home, or get along with other people?: Not difficult at all Total Score: 4 Knowledge Questionaire (BCKQ) - Information Information: [place] COPD Knowledge Questionnaire (BCKQ) This questionnaire is designed to find out what you know about your lung problem. It should be completed without help form anyone else. This usually takes between 10 and 20 minutes. Your answers will help us to find out what information you need to help you to understand and manage your lung condition. [place] which you think is the correct answer. Self-Efficacy Discharge Assessment We would like to know how confident you are in doing certain activities. Please select your confidence level for:: Select your confidence level for the following using the scale 1-10 where 1 is not at all confident and 10 is totally confident. Your score is the average of all 6 responses. Fatigue: How confident are you that you can keep the fatigue caused by your disease from interfering with the things you want to do? Select Number: 8 Physical Discomfort or Pain: How confident are you that you can keep the physical discomfort or pain of your disease from interfering with the things you want to do? Select Number: 7 Emotional Distress: How confident are you that you can keep the emotional distress caused by your disease from interfering with the things you want to do? Select Number: 7 Other Symptoms or Health Problems: How confident are you that you can keep other symptoms or health problems from interfering with the things you want to do? Select Number: 8 Different Tasks and Activities: How confident are you that you can do the different tasks and activities needed to manage your health condition so as to reduce your need to see a doctor? Select Number: 9 Medication: How confident are you that you can do things other than just taking medication to reduce how much your illness affects your everyday life? Select Number: 9 Total Score:: 8 Nutrition Survey
[2022-05-21 08:10] VITALS: BP 126/68; BP 158/92; O2SAT 96
== END 2022-06-08 23:59 ==
LOC: PR 13:00
DX: J44.9 Chronic obstructive pulmonary disease, unspecified (principal)
CPT/HCPCS: 97150; 94626

== ENCOUNTER 2022-05-29 07:17 | Inpatient (IN) | payer OTHER, SELFPAY ==
[2022-04-22 08:14] VITALS: BMI 30.6
[2022-05-29] VITALS (30 sets, daily range): BP systolic 92–156; BP diastolic 68–100; PULSE 62–103; RESP 10–37; TEMP 36–36.6; O2SAT 77–99; BMI 31.4; BMI 30.5
--- NOTE | 2022-05-29 07:21 | EKG12_ITS ---
Test Reason : sob Blood Pressure : / mmHG Vent. Rate : 069 BPM Atrial Rate : 069 BPM P-R Int : 146 ms QRS Dur : 078 ms QT Int : 396 ms P-R-T Axes : 075 049 063 degrees QTc Int : 424 ms Normal sinus rhythm Normal ECG Confirmed by STEVEN PRATHER, ANA ([id number]), editor at large EMMA HERNANDEZ ([id number]) on 05/30/2022 8:25:10 AM Referred By: Confirmed By:ANA HARRIS MD
--- NOTE | 2022-05-29 07:26 | ED.VIS.DYS ---
HPI History of Present Illness Chief Complaint: Shortness of Breath Detail of Chief Complaint: Shortness of breath and anxiousness Informant: patient Onset/Context/Timing Onset: Days Context: gradual Timing: Continuous and Waxes and wanes Quality: Positive for Dyspnea on exertion and Wheezing; Negative for Orthopnea or PND Current Severity: Severe Maximum Severity: Severe Worsened by: Exertion and Coughing Relieved by: Nothing Associated Symptoms cough, fever, subjective, chills, sweats and other; Negative for rhinorrhea, post nasal drip, ear pain or sore throat Chest Pain: Positive for None Narrative Narrative: Patient is a 71-year-old male with COPD on home oxygen 4 L via nasal cannula. He presents because of increasing shortness of breath over the past several days. He reports subjective fever with chills. He denies contacts with anyone that is been ill. He has not smoked since September 2021. He does have a cough productive of greenish-bunch slimy sputum. He denies headache, visual, ocular auditory symptoms. He denies sore throat. He denies chest discomfort. He denies history of VTE. He denies leg pain, swelling discoloration. He denies GI symptoms. He denies symptoms. PE Risk Factors: Negative for Cancer, OCP + Smoking + > 35, Prior DVT or PE, Recent immobilization, Recent surgery or Recent travel Prior similar symptoms: Yes Recent Illness/Hospitalization: No PFSH [facility] Medical History Acute maxillary sinusitis, unspecified Alcohol use Arthritis Bilateral pneumonia COPD (chronic obstructive pulmonary disease) Depression Diabetes Easy bruising Encounter for screening for COVID-19 Former smoker Gastric reflux Hepatitis High cholesterol History of steroid therapy Hypertension Leg cramps On home oxygen therapy Shortness of breath on exertion Smoking greater than 40 pack years Wears dentures Wears glasses Wears hearing aid Home Medications amlodipine 10 mg tablet 10 mg PO DAILY 12/23/21 [History Last Taken Unknown] melatonin 3 mg tablet 3 mg PO QHS 12/23/21 [History Last Taken Unknown] multivitamin 1 tab PO DAILY 12/23/21 [History Last Taken Unknown] pravastatin 80 mg tablet 80 mg PO QHS 12/23/21 [History Last Taken Unknown] tamsulosin 0.4 mg capsule 0.4 mg PO QHS 12/23/21 [History Last Taken Unknown] simethicone 80 mg tablet 80 mg PO 4X/DAY 01/14/22 [History Last Taken Unknown] tiotropium bromide 2.5 mcg/actuation mist for inhalation (Spiriva Respimat) 2 puff inhalation DAILY 01/14/22 [History Last Taken Unknown] citalopram 10 mg tablet 20 mg PO DAILY 02/21/22 [History Last Taken Unknown] glipizide 5 mg tablet 5 mg PO DAILY 02/21/22 [History Last Taken Unknown] guaifenesin 200 mg tablet 200 mg PO Q4H PRN Cough 02/21/22 [History Last Taken Unknown] albuterol sulfate 90 mcg/actuation aerosol inhaler (Ventolin HFA) 1 inh inhalation PRN PRN SOB 03/24/22 [History Last Taken Unknown] fluticasone propionate 50 mcg/actuation nasal spray,suspension 1 spray intranasal DAILY 04/29/22 [History Last Taken Unknown] hydroxyzine pamoate 25 mg capsule 25 mg PO BID PRN Anxiety 04/29/22 [History Last Taken Unknown] pantoprazole 20 mg tablet,delayed release 20 mg PO DAILY 04/29/22 [History Last Taken Unknown] prednisone 20 mg tablet 40 mg PO DAILY COPD 7 days #14 tabs 04/29/22 [Rx Last Taken Unknown] propranolol 10 mg tablet 10 mg PO TID 04/29/22 [History Last Taken Unknown] Allergy/AdvReac Type Severity Reaction Status Date / Time No Known Allergies Allergy Verified 04/29/22 15:07 Family History Father Cancer Heart disease Mother Heart disease Myocardial infarction Surgical History H/O wrist surgery History of hand surgery Hx of appendectomy Hx of colonoscopy Social History household members: spouse Smoking Status: Former smoker quit date: 09/26/21 pack-years: 90 Tobacco: How many years used: 60 alcohol intake: former substance use type: does not use ROS ROS ED Constitutional Constitutional ED: Reports chills, fever(s) and sweats; Denies weight loss Eyes Eyes: Denies blurry vision, change in vision or diplopia ENT ENT ED: Denies ear pain, rhinorrhea or sore throat Cardiovascular Cardiovascular: Reports racing heartbeat; Denies chest pain, orthopnea, palpitations or paroxysmal nocturnal dyspnea Respiratory/Chest Respiratory/Chest: Reports cough, dyspnea, dyspnea on exertion and sputum; Denies orthopnea or paroxysmal nocturnal dyspnea Gastrointestinal Gastrointestinal: Denies abdominal pain, diarrhea, melena, nausea or vomiting Genitourinary Genitourinary ED: Denies dysuria, hematuria or urinary frequency Musculoskeletal Musculoskeletal: Denies arthralgias, back pain or myalgias Integumentary Denies abscess or rash Neurologic Neurologic: Denies headache(s), paresthesias or weakness Psychiatric Psychiatric: Reports anxiety Endocrine Endocrinology: Denies cold intolerance or heat intolerance Hematologic/Lymphatic Hematologic/Lymphatic: Denies easy bleeding, easy bruising or lymphadenopathy EXAM Physical Exam Const Vital Signs: 05/29/22 07:18 05/29/22 07:23 05/29/22 07:23 Temperature 96.8 F L Temperature Source Temporal Pulse Rate 88 Respiratory Rate 30 H Respiratory Effort Labored Respiratory Depth Deep Respiratory Pattern Tachypnea Blood Pressure 156/100 H Blood Pressure Mean 118 Pulse Ox 77 98 Oxygen Delivery Method Nasal Cannula Bi-pap Oxygen Flow Rate (L/min) 6 Fraction of Inspired Oxygen (FIO2) 40 05/29/22 07:22 05/29/22 07:47 Temperature Temperature Source Pulse Rate 65 Respiratory Rate 37 H 23 H Respiratory Effort Respiratory Depth Respiratory Pattern Blood Pressure Blood Pressure Mean Pulse Ox 97 Oxygen Delivery Method Oxygen Flow Rate (L/min) Fraction of Inspired Oxygen (FIO2) 50 35 Positive well nourished, well developed and obese; Negative for cachectic, contractures or unkempt General Appearance ED: well developed; Negative for unkempt, cachectic, contractures, NAD or pallor Nutritional Appearance: obese; Negative for cachectic HEENT Reports dry mucous membranes HEENT Narrative: Ears are normal. Nares patent. Uvula midline. Patient does have central cyanosis. atraumatic; Negative for trauma or tenderness Mouth ED: Yes dry mucous membranes Mouth: dry mucous membranes Eyes PERRL and EOMs intact bilaterally General Eye ED: Negative for pale conjunctiva or scleral icterus Neck no lymphadenopathy, supple and no meningeal signs Neck Narrative: There is no inspiratory expiratory stridor Resp No normal respiratory effort and No clear to auscultation bilaterally Resp Narrative: Patient has diminished breath sounds with increased expiratory phase and wheezing heard throughout. Cardio regular rhythm, S1 normal heart sound, S2 normal heart sound and no murmurs Rate: tachycardic GI non-tender, non-distended and no masses Palpation: soft Back/Spine no CVA tenderness and normal to inspection General Back: Negative for tenderness Extremity Negative for normal to inspection Extremity Narrative: Changes consistent for venous stasis dermatitis. No neurovascular Mise. No leg vein distention, palpable cords times on the distribution deep venous system. There is no asymmetry. General Extremety ED: Yes edema; Negative for tenderness General Extremity: edema Neuro oriented x3, CN's II-XII intact bilaterally and no sensory deficits noted [place] Coma Scale: document GCS findings Spontaneous Obeys Commands Oriented 15 Sensorium / Orientation: alert, oriented to person, oriented to place and oriented to time Speech: speech normal Motor Exam: strength 5/5 throughout Psych Appearance: Negative for unkempt Mood & Affect: anxious Thought Process: normal thought process Skin no wounds Skin Narrative: There is evidence of acrocyanosis. General Skin Exam: Negative for jaundice or pallor MDM MDM MDM Narrative Medical decision making narrative: Patient with acute exacerbation of COPD with respiratory failure acute on chronic. Patient was placed on BiPAP. ABG was obtained to assess acid-base status. He was treated with DuoNeb and albuterol as well as 125 mg Solu-Medrol. Chest x-ray was obtained to rule out pneumonia. CBC to assess white count and rule out anemia. Basic metabolic panel to assess renal function and glucose. EKG was obtained to assess for dysrhythmia and acute ischemia. Patient's respiratory status has improved. His breathing is no longer labored. He still has significant expiratory wheezing noted. ABG was obtained and his pH is 7.37, PCO2 48.5, PO2 of 89.9 and bicarb is 28.1. Base excess was 29.9. Saturation 96.6% on FiO2 of 0.3. Will page hospitalist for admission for exacerbation of COPD. COVID test was negative. Lab Data Attestation: I reviewed the patient's lab results. Lab results narrative: CBC and H&H are unremarkable. MCV is slightly elevated. Does have history of alcohol use. Labs: Laboratory Results - last 24 hr 05/29/22 05/29/22 05/29/22 07:25 07:25 07:25 WBC 10.3 RBC 4.67 Hgb 15.9 Hct 48.1 MCV 103.0 H MCH 34.0 H MCHC 33.1 RDW Std Deviation 50.6 H RDW Coeff of Tarik 13.3 Plt Count 281 MPV 9.7 Immature Gran % (Auto) 0.700 Neut % (Auto) 54.2 Lymph % (Auto) 20.1 Desha % (Auto) 7.4 Eos % (Auto) 17.2 H Baso % (Auto) 0.4 Absolute Neuts (auto) 5.6 Absolute Lymphs (auto) 2.08 Nucleated RBC % 0 Sodium 139 Potassium 4.0 Chloride 100 Carbon Dioxide 31.0 Anion Gap 8 BUN 9 Creatinine 1.09 Estim Creat Clear Calc 65.24 Est GFR (MDRD) Af Amer 85 Est GFR (MDRD) Non-Af 71 BUN/Creatinine Ratio 8.3 L Glucose 211 H Lactic Acid 1.9 Calcium 9.5 ABG Data ABG results: ABG 05/29/22 08:14 Specimen Type ART Sample Site L Radial pH 7.37 Bicarbonate Actual 28.1 H Total CO2 30 Base Excess 3 H O2 Saturation 97 O2 % 30 ABG pCO2 48.5 H ABG pO2 90 Dat Test Positive O2 Delivery Device BiPAP Clinical Comments 16 8 Radiography Chest X-Ray - ED: 1 View and Read by ED Physician (Single view portable chest x-ray was interpreted by me as negative for any acute process. There is minimal chronic changes noted. Cardiac silhouette and size normal. Perihilar regions unremarkable. Osseous structures are unremarkable.) Rhythm Strip Rhythm Strip: Sinus Rhythm (82) Ectopy: None EKG Initial EKG: Attestation: I personally reviewed and interpreted this EKG as follows: Interpretation: Sinus Rhythm (Ventricular rate is 69. EKG is normal. MS intervals 146 ms. QS duration 78 ms. QT duration 396 ms. [place] is normal. 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
[2022-05-29] MEDS: Ipratropium/Albuterol Sulfate 3 ML AMPUL.NEB INHALATION ×3 (07:27→19:10)
[2022-05-29] MEDS: MethylPREDNISolone 125 MG/2 ML Vial IV (07:29)
[2022-05-29 07:36] LABS: Hematocrit 48.1 % (40-54); Hemoglobin 15.9 g/dL (13.0-16.5); Mean Corp Hgb Conc 33.1 g/dL (32-36); Mean Platelet Vol. 9.7 fl (6.2-12.0); Platelet Count 281 K/mm3 (150-450); RBC Distribution Width CV 13.3 % (11.6-14.6); RBC Distribution Width SD 50.6 fl (35.1-43.9); Red Blood Count 4.67 M/mm3 (4.6-6.2); White Blood Count 10.3 K/mm3 (4.4-11.0)
[2022-05-29] MEDS: Albuterol 2.5 MG/3 ML VIAL.NEB. INHALATION ×3 (07:44→08:31)
[2022-05-29 07:49] LABS: Anion Gap 8 (5-15); BUN 9 mg/dL (7-18); BUN/Creat Ratio 8.3 RATIO (10-20); Calcium,Total 9.5 mg/dL (8.5-10.1); Chloride 100 mmol/L (98-107); Creatinine, Serum 1.09 mg/dL (0.70-1.30); EST Glomerular Filtration Rate 71 mL/min (>60); Est Glom Filt Rate - Afr Amer 85 mL/min (>60); Estimated Creatinine Clearance 65.24 ml/min; Glucose 211 mg/dL (74-106); Sodium Level 139 mmol/L (136-145)
[2022-05-29 07:58] LABS: Lactic Acid 1.9 mmol/L (0.4-1.9)
--- NOTE | 2022-05-29 08:07 | RAD_ITS ---
STUDY: X-RAY CHEST REASON FOR EXAM: Male, 71 years old. Respiratory failure TECHNIQUE: Single AP portable view of the chest. COMPARISON: Comparison is made with prior study dated 04/29/2022. FINDINGS: EKG electrodes are seen. Hyperinflation. Mild stable increased markings at the left lung base suggestive of scarring. There is no demonstrated pleural abnormality. Normal size heart. Normal mediastinum and lisa. Normal visualized pulmonary arteries. There is atherosclerotic calcification of the aortic arch with tortuosity. There are diffuse degenerative changes of the visualized thoracic spine. Normal visualized ribs, clavicles, and shoulders. There is no demonstrated abnormality of the visualized soft tissue structures of the upper abdomen. RAD/Chest 1 View (Portable) IMPRESSION: Hyperinflation. Stable examination. Electronically Signed: Anibal Jimenez MD at 8:46 EDT ,
[2022-05-29 08:21] LABS: Allen Test Positive; Base Excess 3 mmol/L (-2 to +2); Bicarbonate 28.1 mmol/L (22-26); Blood Gas Specimen Type ART; Comment 16 8; FI02 30; O2 Delivery Device BiPAP; PO2 90 mmHG (75-100); SITE L Radial; SO2 97 % (95-99); Total Carbon Dioxide 30 mmol/L; pCO2 48.5 mmHg (35-45); pH 7.37 (7.35-7.45)
--- NOTE | 2022-05-29 08:31 | HP.PCM.HOS_ITS ---
HPI - General General Date of Admission: 05/29/22 Date of Service: 05/29/22 Chief Complaint: Shortness of breath - 2-3 days HPI Narrative NAUN GARCÍA, is a 71 M who presents with the above. Patient has history of chronic respiratory failure secondary to COPD, on chronic 4 L home oxygen who comes in with progressive shortness of breath, wheezing, subjective fever with chills. His cough is productive of greenish-bunch sputum. He denied any sick contacts. He has been vaccinated against COVID-19. Patient follows with a behavioral health worker in the [place]. In the ED, patient's vitals showed BP 156/100, HR 88, RR 30, temp 96.8F, Spo2 was 77% on 6L oxygen. WBC 10.3, Hb 15.9, Plt 281. Ph 7.37, Pco2 48.5, Po2 90. Sodium is 139, potassium 4.0,, chloride 100, bicarbonate 31, BUN 9, creatinine 1.09, lactic acid 1.9, glucose 211 AST 46, ALT 100, ALP 76, BNP 17.7. Admitting chest x-ray shows hyperinflation, no acute abnormality. [facility] Medical History Acute maxillary sinusitis, unspecified Alcohol use Arthritis Bilateral pneumonia COPD (chronic obstructive pulmonary disease) Depression Diabetes Easy bruising Encounter for screening for COVID-19 Former smoker Gastric reflux Hepatitis High cholesterol History of steroid therapy Hypertension Leg cramps On home oxygen therapy Shortness of breath on exertion Smoking greater than 40 pack years Wears dentures Wears glasses Wears hearing aid Home Medications amlodipine 10 mg tablet 10 mg PO DAILY 12/23/21 [History Last Taken Unknown] melatonin 3 mg tablet 3 mg PO QHS 12/23/21 [History Last Taken Unknown] multivitamin 1 tab PO DAILY 12/23/21 [History Last Taken Unknown] pravastatin 80 mg tablet 80 mg PO QHS 12/23/21 [History Last Taken Unknown] tamsulosin 0.4 mg capsule 0.4 mg PO QHS 12/23/21 [History Last Taken Unknown] simethicone 80 mg tablet 80 mg PO 4X/DAY 01/14/22 [History Last Taken Unknown] tiotropium bromide 2.5 mcg/actuation mist for inhalation (Spiriva Respimat) 2 puff inhalation DAILY 01/14/22 [History Last Taken Unknown] citalopram 10 mg tablet 20 mg PO DAILY 02/21/22 [History Last Taken Unknown] glipizide 5 mg tablet 5 mg PO DAILY 02/21/22 [History Last Taken Unknown] guaifenesin 200 mg tablet 200 mg PO Q4H PRN Cough 02/21/22 [History Last Taken Unknown] albuterol sulfate 90 mcg/actuation aerosol inhaler (Ventolin HFA) 1 inh inhalation PRN PRN SOB 03/24/22 [History Last Taken Unknown] fluticasone propionate 50 mcg/actuation nasal spray,suspension 1 spray intranasal DAILY 04/29/22 [History Last Taken Unknown] hydroxyzine pamoate 25 mg capsule 25 mg PO BID PRN Anxiety 04/29/22 [History Last Taken Unknown] pantoprazole 20 mg tablet,delayed release 20 mg PO DAILY 04/29/22 [History Last Taken Unknown] prednisone 20 mg tablet 40 mg PO DAILY COPD 7 days #14 tabs 04/29/22 [Rx Last Taken Unknown] propranolol 10 mg tablet 10 mg PO TID 04/29/22 [History Last Taken Unknown] Allergy/AdvReac Type Severity Reaction Status Date / Time No Known Allergies Allergy Verified 04/29/22 15:07 Family History Father Cancer Heart disease Mother Heart disease Myocardial infarction Surgical History H/O wrist surgery History of hand surgery Hx of appendectomy Hx of colonoscopy Social History household members: spouse Smoking Status: Former smoker quit date: 09/26/21 pack-years: 90 Tobacco: How many years used: 60 alcohol intake: former substance use type: does not use ROS ROS Narrative Constitutional: Reports: Malaise, Weakness, Fatigue. Denies: Anorexia, Chills, Fever, Night Sweats, Weight Change Eyes: Denies: Blurred vision, Cataracts, Conjunctivae Inflammation, Pain, Redness, Vision Change HEENT: Denies: Difficulty Hearing, Difficulty Swallowing, Head Aches, Hearing Changes, Sinus Congestion, Sinus Drainage Cardiovascular: Denies: Chest Pain, Orthopnea, Palpitations Respiratory: Denies: See HPI Gastrointestinal: Denies: Abdominal Pain, Nausea, Vomiting Genitourinary: Denies: Dysuria Musculoskeletal: Denies: Joint Pain, Joint stiffness, Joint swelling, Joint Tenderness Skin: Denies: Rash, Wounds Neurological: Denies: Numbness, Tingling, Focal weakness Vital Signs Vital Signs Vital Signs: 05/29/22 07:18 05/29/22 07:23 05/29/22 07:23 Temperature 96.8 F L Temperature Source Temporal Pulse Rate 88 Respiratory Rate 30 H Respiratory Effort Labored Respiratory Depth Deep Respiratory Pattern Tachypnea Blood Pressure 156/100 H Blood Pressure Mean 118 Pulse Ox 77 98 Oxygen Delivery Method Nasal Cannula Bi-pap Oxygen Flow Rate (L/min) 6 Fraction of Inspired Oxygen (FIO2) 40 05/29/22 07:22 05/29/22 07:47 Temperature Temperature Source Pulse Rate 65 Respiratory Rate 37 H 23 H Respiratory Effort Respiratory Depth Respiratory Pattern Blood Pressure Blood Pressure Mean Pulse Ox 97 Oxygen Delivery Method Oxygen Flow Rate (L/min) Fraction of Inspired Oxygen (FIO2) 50 35 Weight Weight: 102 kg Body Mass Index (BMI) 31.4 Physical Exam Narrative Physical exam: General: Alert, Oriented x3, in mild respiratory distress with use of accessory muscles of respiration, on BiPAP HEENT: Atraumatic Oral: Moist Mucosa Neck: Supple Lungs:Diminished to auscultation, wheezes+++ Cardiovascular: HS I+II, regular, no murmurs Abdomen: Bowel Sounds Present, Soft, Non Tender Extremities: Trace bilateral pedal edema Skin: No rashes, No breakdown Neurological: Grossly intact Psych/Mental Status: Appropriate Results Lab / Micro Data Result Diagrams: 05/29/22 07:25 05/29/22 07:25 Labs: Laboratory Results - last 24 hr 05/29/22 07:25: WBC 10.3, RBC 4.67, Hgb 15.9, Hct 48.1, MCV 103.0 H, MCH 34.0 H, MCHC 33.1, RDW Std Deviation 50.6 H, RDW Coeff of Tarik 13.3, Plt Count 281, MPV 9.7, Immature Gran % (Auto) 0.700, Neut % (Auto) 54.2, Lymph % (Auto) 20.1, [place] % (Auto) 7.4, Eos % (Auto) 17.2 H, Baso % (Auto) 0.4, Absolute Neuts (auto) 5.6, Absolute Lymphs (auto) 2.08, Nucleated RBC % 0 05/29/22 07:25: Sodium 139, Potassium 4.0, Chloride 100, Carbon Dioxide 31.0, Anion Gap 8, BUN 9, Creatinine 1.09, Estim Creat Clear Calc 65.24, Est GFR (MDRD) Af Amer 85, Est GFR (MDRD) Non-Af 71, BUN/Creatinine Ratio 8.3 L, Glucose 211 H, Calcium 9.5 05/29/22 07:25: Lactic Acid 1.9 Micro: Microbiology 05/29/22 07:40 Nasal Secretion SARS-CoV-2 Antigen (Rapid) - Final ABG Data ABG results: ABG 05/29/22 08:14 Specimen Type ART Sample Site L Radial pH 7.37 Bicarbonate Actual 28.1 H Total CO2 30 Base Excess 3 H O2 Saturation 97 O2 % 30 ABG pCO2 48.5 H ABG pO2 90 Dat Test Positive O2 Delivery Device BiPAP Clinical Comments 16 8 Rhythm Strip Rhythm Strip: Sinus Rhythm (82) Ectopy: None Assessment & Plan Assessment/Plan (1) Acute and chronic respiratory failure with hypoxia: (2) COPD with acute exacerbation: PLAN: Plan 1. Acute hypoxic respiratory failure secondary to acute COPD exacerbation Patient presented cyanotic, in respiratory distress; appeared very slightly improved at time of being seen Patient remains on BiPAP, admitted to ICU Continue with IV Solu-Medrol, breathing treatments, azithromycin Check sputum culture, pulmonology consult 2. Hypertension, controlled, continue on amlodipine, propanolol 3. Type II DM, on glipizide, expect blood glucose to increase with steroid Check HbA1c, continue insulin sliding scale for now 4. Hyperlipidemia, continue statin 5. BPH, continue on Flomax 6. Anxiety/depression, continue Celexa 7. DVT PPx- Heparin SC Charges/Coding Visit Charges Inpatient E&M: 40806 Init Hosp L3
[2022-05-29] MEDS: levoFLOXacin IV 500 MG/100 ML BAG 100 MG IV (08:38)
--- NOTE | 2022-05-29 09:29 | ECHOCS_ITS ---
Reason For Study: Dyspnea/SOB Procedure This was a 2D Doppler, Color Flow transthoracic echocardiogram. Technically difficult study. Patient on BIPAP. Contrast injection performed. Exam performed portable in ICU/CCU. Left Ventricle Normal LV size. Left ventricular systolic function is normal. The estimated ejection fraction is 55 %. Stage 1 diastolic dysfunction. No regional wall motion abnormalities noted. Right Ventricle Normal RV size. Normal systolic function. Atria Normal left atrium. Normal right atrium. Mitral Valve Mitral valve not well visualized. Tricuspid Valve The tricuspid valve is not well visualized. Aortic Valve The aortic valve is not well visualized. Pulmonic Valve The pulmonic valve is not well visualized. Great Vessels Normal aortic root. The pulmonary artery is normal size. Normal inferior vena cava. Pericardium/Pleural No pericardial effusion. Medication Diluted definity 2.5ml given slow IV push to enhance endocardial definition. MMode/2D Measurements & Calculations LVIDd: 3.4 cm IVSd: 1.2 cm LA dimension: 2.8 cm LVIDs: 2.8 cm LVPWd: 0.91 cm RVDd: 3.3 cm FS: 18.6 % LAV(MOD-bp): 26.4 ml LA A4 area: 11.7 cm2 RA A4 area: 13.6 cm2 LAV(MOD-bp) Indexed: 12.2 ml/m2 LAV(MOD-sp2): 31.9 ml LAV(MOD-sp4): 22.1 ml Time Measurements MV dec time: 0.25 sec Doppler Measurements & Calculations MV E max jacob: 50.2 cm/sec MV V2 max: 67.0 cm/sec MV P1/2t max jacob: 58.7 cm/sec MV A max jacob: 67.0 cm/sec MV max P.8 mmHg MV P1/2t: 73.9 msec MV E/A: 0.75 MV V2 mean: 37.2 cm/sec MV dec slope: 232.8 cm/sec2 MV mean P.65 mmHg MV V2 VTI: 20.1 cm MVA(P1/2t): 3.0 cm2 Ao V2 max: 104.7 cm/sec LV V1 max: 100.6 cm/sec PA V2 max: 89.8 cm/sec Ao max P.4 mmHg LV V1 max P.1 mmHg ECHO/Echo Complete W/ Contrast Interpretation Summary Exam performed portable in ICU/CCU Normal LV size. Left ventricular systolic function is normal. The estimated ejection fraction is 55 %. Stage 1 diastolic dysfunction. Contrast injection was performed. Ordering Physician: Osvaldo Merritt Performed By: Justo Wei RCS
--- NOTE | 2022-05-29 09:34 | CON.PCM.CC_ITS ---
Assessment & Plan Assessment/Plan (1) Acute and chronic respiratory failure with hypoxia: (2) Acute exacerbation of chronic obstructive pulmonary disease: (3) Diabetes: QUALIFIERS: Diabetes mellitus type: type 2 PLAN: Plan RECOMMENDATIONS: 1. Continue antibiotics, steroids and bronchodilators. 2. Add incentive spirometer, mucolytic's and Acapella for pulmonary toileting 3. BiPAP breaks as tolerated. Continue BiPAP with sleep 4. Challenge with diuretics. Obtain echocardiogram 5. Await manual differential given eosinophilia 6. [facility] IMPRESSIONS: 1. Acute on chronic hypoxic respiratory failure Unclear etiology. Patient is requiring BiPAP rescue to have adequate saturations. However, FiO2 requirements are relatively low. This would be suggestive of possible concomitant CHF. Patient does have lower extremity swelling and significant hypertension on presentation indicating possible flash pulmonary edema. Patient does have a generous right heart border, so pulmonary hypertension would be a concern. Echocardiogram has been ordered. Patient will be given Lasix. Will treat as a COPD exacerbation. Incidentally found to have significant eosinophilia on automated differential. This will be confirmed. Concomitant asthma (Churg-Vanessa) versus parasitic infection versus fungal etiology would be a concern at this high of levels. Records will be requested from the [facility]. Patient should continue BiPAP with sleep, but will attempt to give BiPAP breaks during the day. 2. Reported CHF Echocardiogram is not available for review. Patient recently underwent cardiac rehab secondary to a diagnosis of CHF. Will obtain an echocardiogram. Patient does have some lower extremity edema and significantly elevated blood pressures on presentation. Continue telemetry. Unclear if needed to be seen by cardiology 3. Diabetes mellitus Patient with elevated blood sugars on presentation. Patient does have an indication for steroid therapy. Recommend sliding scale insulin. Cannot exclude the need for basal insulin. 4. GERD/dyslipidemia/hypertension/BPH/advanced age Complicates care, management, recovery and prognosis. Okay to continue with baseline medications from my perspective. Anticipate patient will be able to tolerate BiPAP breaks for taking pills. Did discuss at length with patient CODE STATUS. Patient has confirmed that he is a full code and is willing to be intubated if necessary. TIME: 32 minutes critical care time spent addressing patient's hypoxic respiratory failure, diabetes mellitus, review of all data and collaboration with care team. HPI Consult Data Date of Consult: 05/29/22 HPI Narrative Reason for Consultation: Respiratory failure HPI Narrative: NAUN GARCÍA is a 71 M, with past medical history listed below, who presents to [facility] on 05/29/2022 secondary to progressive shortness of breath. Patient does have a history of chronic hypoxic respiratory failure on 4 L nasal cannula at baseline secondary to her diagnosis of COPD. Patient reports he has been treated multiple times with antibiotics and steroids and typically after steroids he starts to develop worsening respiratory status. Patient was recently hospitalized in October, but gets the majority of his care [facility]. Patient has reported subjective fever with chills and a cough productive of greenish-bunch slimy sputum. Patient denied any sore throat, chest pain, naus ea, vomiting or diarrhea. No epistaxis or hemoptysis has been reporting smoking history, but quit sometime ago. Patient does see a junior loan processor at the [facility], but is not currently on any maintenance inhalers. In the ER, patient was noted to be 77% on 6 L nasal cannula. Patient was afebrile, but tachypneic at 30 breaths/min. Patient was also hypertensive at 156/100. Patient was placed on BiPAP with significant improvement in overall symptomatology. Laboratory work-up showed a white blood cell count of 10.3, hemoglobin of 15.9 and platelets of 281. Subsequent automated differential did show an eosinophil of 17.2%. BMP shows an elevated bicarbonate of 31 with normal renal function and elevated glucose of 211. Lactate was within normal limits. Arterial blood gas showed compensated chronic respiratory acidosis with an increased AA gradient. EKG showed sinus rhythm with no ST segment changes. Given patient's need for new BiPAP, patient was admitted to the intensive care unit for further evaluation. On my evaluation in the intensive care unit, patient feels subjectively much improved compared to previous. Patient is denying any current chest pain, abdominal pain, nausea or vomiting. Patient states that she has been good when he is on steroids. Patient is not currently using any maintenance inhaler. Patient denied any acute exposure. Patient states he has been compliant with his supplemental oxygen. Patient states he had talked to his junior loan processor at the [facility] and he has a maintenance inhaler on the way. Patient was briefly admitted at [facility] in October, but was not seen by pulmonology. Patient has Spiriva on his medication list, but it is unclear if this is what is being sent by the [facility]. Patient is very clear that he only has albuterol as needed to use. Patient states he has had pulmonary function test in the past that were not that bad. Patient does not know further details. Patient does report that he has had lower extremity edema for the past 2 to 3 weeks. Review of systems otherwise negative from a constitutional, HEENT, respiratory, cardiovascular, GI, genitourinary, musculoskeletal, skin, neurologic, psychiatric and hematologic system unless stated above. FORMERLY [facility], 1928–1983 Medical History Acute maxillary sinusitis, unspecified Alcohol use Arthritis Bilateral pneumonia COPD (chronic obstructive pulmonary disease) Depression Diabetes Easy bruising Encounter for screening for COVID-19 Former smoker Gastric reflux Hepatitis High cholesterol History of steroid therapy Hypertension Leg cramps On home oxygen therapy Shortness of breath on exertion Smoking greater than 40 pack years Wears dentures Wears glasses Wears hearing aid Home Medications amlodipine 10 mg tablet 10 mg PO DAILY 12/23/21 [History Last Taken Unknown] melatonin 3 mg tablet 3 mg PO QHS 12/23/21 [History Last Taken Unknown] multivitamin 1 tab PO DAILY 12/23/21 [History Last Taken Unknown] pravastatin 80 mg tablet 80 mg PO QHS 12/23/21 [History Last Taken Unknown] tamsulosin 0.4 mg capsule 0.4 mg PO QHS 12/23/21 [History Last Taken Unknown] simethicone 80 mg tablet 80 mg PO 4X/DAY 01/14/22 [History Last Taken Unknown] tiotropium bromide 2.5 mcg/actuation mist for inhalation (Spiriva Respimat) 2 puff inhalation DAILY 01/14/22 [History Last Taken Unknown] citalopram 10 mg tablet 20 mg PO DAILY 02/21/22 [History Last Taken Unknown] glipizide 5 mg tablet 5 mg PO DAILY 02/21/22 [History Last Taken Unknown] guaifenesin 200 mg tablet 200 mg PO Q4H PRN Cough 02/21/22 [History Last Taken Unknown] albuterol sulfate 90 mcg/actuation aerosol inhaler (Ventolin HFA) 1 inh inhalation PRN PRN SOB 03/24/22 [History Last Taken Unknown] fluticasone propionate 50 mcg/actuation nasal spray,suspension 1 spray intranasal DAILY 04/29/22 [History Last Taken Unknown] hydroxyzine pamoate 25 mg capsule 25 mg PO BID PRN Anxiety 04/29/22 [History Last Taken Unknown] pantoprazole 20 mg tablet,delayed release 20 mg PO DAILY 04/29/22 [History Last Taken Unknown] prednisone 20 mg tablet 40 mg PO DAILY COPD 7 days #14 tabs 04/29/22 [Rx Last Taken Unknown] propranolol 10 mg tablet 10 mg PO TID 04/29/22 [History Last Taken Unknown] Allergy/AdvReac Type Severity Reaction Status Date / Time No Known Allergies Allergy Verified 04/29/22 15:07 Family History Father Cancer Heart disease Mother Heart disease Myocardial infarction Surgical History H/O wrist surgery History of hand surgery Hx of appendectomy Hx of colonoscopy Social History household members: spouse Smoking Status: Former smoker quit date: 09/26/21 pack-years: 90 Tobacco: How many years used: 60 alcohol intake: former substance use type: does not use ROS ROS Narrative See HPI Physical Exam Const alert, oriented x3 and no apparent distress Constitutional Narrative: On BiPAP. No conversational dyspnea while on BiPAP General Appearance: cooperative and well developed HEENT normocephalic, head/scalp atraumatic and hearing grossly normal bilaterally Eyes PERRL, EOMs intact bilaterally and conjunctivae normal Neck no lymphadenopathy, supple and no JVD Resp no use of accessory muscles Effort and Inspection: tachypneic Auscultation: wheezes expiratory wheezes and throughout; Negative for rales or rhonchi Cardio regular rate, regular rhythm, S1 normal heart sound, S2 normal heart sound, no murmurs, no rub, no gallops and no JVD Cardio Narrative: Somewhat distant heart sounds given concomitant wheezing GI normal to inspection, nondistended, normoactive bowel sounds, soft to palpation and non-tender Extremity normal to inspection and full ROM General Extremity: edema bilateral (2+ bilateral) lower extremity Skin no rashes or lesions noted, no wounds and skin turgor normal Neuro CN's II-XII intact bilaterally, moves all extremities and no focal motor deficits Psych affect normal Medical Records Data Attestation: I reviewed the patient's medical records Medical records narrative: Hospital records from last brief hospitalization were reviewed. [facility]. Patient does not appear to have a PFT or echocardiogram in the computer. Patient did recently finish pulmonary rehab. Lab / Micro Data Attestation: I reviewed the patient's lab results. Lab results narrative: Automated differential showing 17.2% eosinophils. Called lab to get a manual differential. Result Diagrams: 05/29/22 07:25 05/29/22 07:25 Labs: Laboratory Results - last 24 hr 05/29/22 07:25: WBC 10.3, RBC 4.67, Hgb 15.9, Hct 48.1, MCV 103.0 H, MCH 34.0 H, MCHC 33.1, RDW Std Deviation 50.6 H, RDW Coeff of Tarik 13.3, Plt Count 281, MPV 9.7, Immature Gran % (Auto) 0.700, Neut % (Auto) 54.2, Lymph % (Auto) 20.1, Carbon % (Auto) 7.4, Eos % (Auto) 17.2 H, Baso % (Auto) 0.4, Absolute Neuts (auto) 5.6, Absolute Lymphs (auto) 2.08, Nucleated RBC % 0 05/29/22 07:25: Sodium 139, Potassium 4.0, Chloride 100, Carbon Dioxide 31.0, Anion Gap 8, BUN 9, Creatinine 1.09, Estim Creat Clear Calc 65.24, Est GFR (MDRD) Af Amer 85, Est GFR (MDRD) Non-Af 71, BUN/Creatinine Ratio 8.3 L, Glucose 211 H, Calcium 9.5 05/29/22 07:25: Lactic Acid 1.9 Micro: Microbiology 05/29/22 07:40 Nasal Secretion SARS-CoV-2 Antigen (Rapid) - Final ABG Data ABG results: ABG 05/29/22 08:14 Specimen Type ART Sample Site L Radial pH 7.37 Bicarbonate Actual 28.1 H Total CO2 30 Base Excess 3 H O2 Saturation 97 O2 % 30 ABG pCO2 48.5 H ABG pO2 90 Dat Test Positive O2 Delivery Device BiPAP Clinical Comments 16 8 Rhythm Strip Rhythm Strip: Sinus Rhythm (82) Rate: 86 Ectopy: None Radiology Impression Chest X-Ray 05/29/22 08:07 IMPRESSION: Hyperinflation. Stable examination. Electronically Signed: Anibal Jimenez MD at 8:46 EDT , Charges/Coding Procedures Hospitalists Procedures: 18305 Critial Care 1st Hr
[2022-05-29 09:40] LABS: Differential Indicated MANUAL DIFF
[2022-05-29 10:03] LABS: Eosinophil 22 % (0-5); Lymphocyte 18 % (19-41); Monocyte 16 % (0-10); Neutrophil-Segmented 44 % (47-70); Platelet Estimate ADEQUATE (ADEQ); Red Cell Morphology NORM C+C NORMAL (NORM C&C); Total Cells Counted 100 (MANUAL DIFF)
[2022-05-29 10:04] LABS: Absolute Neutrophil Count 4.5 X10^3/uL (2.0-7.7)
[2022-05-29 10:05] LABS: Absolute Lymphocyte Count 1.85 X10^3/uL (0.83-4.51); Lymphocyte # 1.85 X10^3/ul (0.83-4.51)
[2022-05-29 11:19] LABS: BNP,B-Type NATRIURETIC PEPTIDE 17.7 pg/mL (0-100)
[2022-05-29 11:22] LABS: AST(SGOT) 46 U/L (15-37); Alanine Aminotransfer ALT/SGPT 100 U/L (16-61); Albumin, Serum 4.2 g/dL (3.2-5.0); Alkaline Phosphatase 76 U/L (45-117); Bilirubin, Direct 0.15 mg/dL (0.00-0.30); Globulin 3.4 g/dL (2.2-4.2); Protein, Total 7.6 g/dL (6.4-8.2)
[2022-05-29] MEDS: Furosemide 40 MG/4 ML Vial IV (11:35)
[2022-05-29] MEDS: Citalopram 20 MG Tablet PO (13:21)
[2022-05-29] MEDS: Pantoprazole Sodium 20 MG Tablet PO (13:21)
[2022-05-29] MEDS: amLODIPine 10 MG Tablet PO (13:21)
[2022-05-29] MEDS: Propranolol 10 MG Tablet PO ×2 (15:25→21:10)
[2022-05-29] MEDS: Insulin Lispro 100 UNIT/ML INSULN.PEN SC ×2 (16:34→21:06)
[2022-05-29] MEDS: 0.9% Saline Lock 10 ML Syringe IV (21:09)
[2022-05-29] MEDS: Tamsulosin HCl 0.4 MG Capsule PO (21:09)
[2022-05-29] MEDS: Pravastatin 80 MG Tablet PO (21:11)
[2022-05-29 21:20] LABS: Bedside Glucose 228 mg/dL (74-106)
[2022-05-29 21:35] LABS: Bedside Glucose 274 mg/dL (74-106)
[2022-05-30] VITALS (22 sets, daily range): BP systolic 118–144; BP diastolic 67–89; PULSE 66–82; RESP 10–28; TEMP 35.9–36.6; O2SAT 90–97
[2022-05-30] MEDS: Ipratropium/Albuterol Sulfate 3 ML AMPUL.NEB INHALATION ×4 (01:35→19:02)
[2022-05-30 03:17] LABS: Absolute Lymphocyte Count 0.68 X10^3/uL (0.83-4.51); Absolute Neutrophil Count 9.2 X10^3/uL (2.0-7.7); Basophil# 0.01 X10^3/uL; Basophil% 0.1 % (0-1); Eosinophil# 0.01 X10^3/uL; Eosinophils% 0.1 % (0-5); Hematocrit 41.4 % (40-54); Hemoglobin 14.1 g/dL (13.0-16.5); Lymphocyte # 0.68 X10^3/ul (0.83-4.51); Lymphocyte % 6.7 % (19-41); Mean Corp Hgb Conc 34.1 g/dL (32-36); Mean Corpuscular Hgb 34.3 pg (27.0-32.0); Mean Corpuscular Volume 100.7 fL (80-94); NRBC Flagged by Analyzer 0 % (0-5); Neutrophil # 9.19 X10^3/uL (2.7-7.7); Neutrophil % 90.7 % (47-70); Platelet Count 233 K/mm3 (150-450); RBC Distribution Width CV 13.1 % (11.6-14.6); RBC Distribution Width SD 48.9 fl (35.1-43.9); Red Blood Count 4.11 M/mm3 (4.6-6.2); White Blood Count 10.1 K/mm3 (4.4-11.0)
[2022-05-30 04:14] LABS: ALB/GLOB Ratio 1.1 RATIO (0.9-2.4); AST(SGOT) 30 U/L (15-37); Alanine Aminotransfer ALT/SGPT 80 U/L (16-61); Albumin, Serum 3.5 g/dL (3.2-5.0); Alkaline Phosphatase 61 U/L (45-117); Anion Gap 6 (5-15); BUN 20 mg/dL (7-18); Calcium,Total 9.3 mg/dL (8.5-10.1); Chloride 101 mmol/L (98-107); Creatinine, Serum 1.11 mg/dL (0.70-1.30); EST Glomerular Filtration Rate 69 mL/min (>60); Est Glom Filt Rate - Afr Amer 84 mL/min (>60); Estimated Creatinine Clearance 62.11 ml/min; Globulin 3.1 g/dL (2.2-4.2); Glucose 244 mg/dL (74-106); Potassium 4.1 mmol/L (3.5-5.1); Protein, Total 6.6 g/dL (6.4-8.2); Sodium Level 138 mmol/L (136-145)
[2022-05-30] MEDS: Propranolol 10 MG Tablet PO ×3 (06:04→21:26)
[2022-05-30] MEDS: 0.9% Saline Lock 10 ML Syringe IV ×3 (06:05→21:25)
--- NOTE | 2022-05-30 07:06 | PN.CC_ITS ---
Assessment & Plan Assessment/Plan (1) Acute and chronic respiratory failure with hypoxia: (2) Acute exacerbation of chronic obstructive pulmonary disease: (3) Diabetes: QUALIFIERS: Diabetes mellitus type: type 2 PLAN: Plan RECOMMENDATIONS: 1. Continue antibiotics, steroids and bronchodilators. 2. Continue incentive spirometer, mucolytic's and Acapella for pulmonary toileting 3. Transition to BiPAP with sleep only 4. Challenge with diuretics again today 5. Outpatient work-up for eosinophilia 6. Okay to leave the intensive care unit IMPRESSIONS: 1. Acute on chronic hypoxic respiratory failure Unclear etiology. Patient significantly improved compared to yesterday. Patient did receive diuretics and lower extremity DELANEY is much improved. Patient did have significant eosinophilia on presentation. Outpatient work-up for Churg-Vanessa would be indicated in my opinion. Patient does have a productive cough, so we will continue with antibiotics and steroids for now. Will wean steroids. Possibly transition to prednisone tomorrow. 2. Reported CHF Echocardiogram is not available for review. Patient recently underwent cardiac rehab secondary to a diagnosis of CHF. Echocardiogram did show some diastolic dysfunction. Patient does have some lower extremity edema and significantly elevated blood pressures on presentation. Flash pulmonary edema? Continue telemetry. Unclear if needed to be seen by cardiology 3. Diabetes mellitus Patient with elevated blood sugars on presentation. Patient does have an indication for steroid therapy. Recommend sliding scale insulin. Cannot exclude the need for basal insulin. 4. GERD/dyslipidemia/hypertension/BPH/advanced age Complicates care, management, recovery and prognosis. Okay to continue with baseline medications from my perspective. Did discuss at length with patient CODE STATUS on admission. Patient has confirmed that he is a full code and is willing to be intubated if necessary. Subjective Subjective Patient did well overnight. Patient still reports dyspnea, but overall feels subjectively much improved compared to yesterday. Patient continues to have a productive cough. No fevers were noted overnight. Patient has been able to be weaned to 4 L nasal cannula during the day. Patient reiterated that he tends to use 2 to 3 L/min at baseline. Objective Data Objective Data Significant eosinophilia on presenting CBC was confirmed by manual inspection. Today is significantly improved compared to yesterday Vital Signs: Vital Signs Temp Pulse Resp BP Pulse Ox O2 Del Method O2 Flow Rate 36.0 C L 69 26 H 141/87 H 97 Nasal Cannula 4 05/30/22 04:00 05/30/22 07:00 05/30/22 07:00 05/30/22 07:00 05/30/22 07:00 05/30/22 07:00 05/30/22 07:00 FiO2 30 05/30/22 05:00 Oxygen Flow Rate (L/min) 4 Oxygen Delivery Method Nasal Cannula Weight: 97 kg Body Mass Index (BMI) 30.5 Intake & Output: Intake and Output for Last 24 Hours 05/28/22 05/29/22 05/30/22 23:59 23:59 23:59 Intake Total 555.00 / 630.00 306.25 / 306.25 Output Total 1700 / 1700 650 / 650 Balance -1145.00 / -1070.00 -343.75 / -343.75 Lab / Micro Data Attestation: I reviewed the patient's lab results. Result Diagrams: 05/30/22 03:11 05/30/22 03:11 Labs: Laboratory Results - last 24 hr 05/29/22 07:25: WBC 10.3, RBC 4.67, Hgb 15.9, Hct 48.1, MCV 103.0 H, MCH 34.0 H, MCHC 33.1, RDW Std Deviation 50.6 H, RDW Coeff of Tarik 13.3, Plt Count 281, MPV 9.7, Immature Gran % (Auto) ATTRACTION ATTENDANT, Neut % (Auto) ATTRACTION ATTENDANT, Lymph % (Auto) ATTRACTION ATTENDANT, [place] % (Auto) ATTRACTION ATTENDANT, Eos % (Auto) ATTRACTION ATTENDANT, Baso % (Auto) ATTRACTION ATTENDANT, Absolute Neuts (auto) 4.5, Absolute Lymphs (auto) 1.85, Total Counted 100, Neutrophils % (Manual) 44 L, Lymphocytes % (Manual) 18 L, Monocytes % (Manual) 16 H, Eosinophils % (Manual) 22 H, Nucleated RBC % ATTRACTION ATTENDANT, Platelet Estimate ADEQUATE, RBC Morphology NORM C+C 05/29/22 07:25: Sodium 139, Potassium 4.0, Chloride 100, Carbon Dioxide 31.0, Anion Gap 8, BUN 9, Creatinine 1.09, Estim Creat Clear Calc 65.24, Est GFR (MDRD) Af Amer 85, Est GFR (MDRD) Non-Af 71, BUN/Creatinine Ratio 8.3 L, Glucose 211 H, Calcium 9.5 05/29/22 07:25: Lactic Acid 1.9 05/29/22 07:25: Total Bilirubin 0.70, Direct Bilirubin 0.15, AST 46 H, ALT 100 H , Alkaline Phosphatase 76, Total Protein 7.6, Albumin 4.2, Globulin 3.4 05/29/22 07:25: B-Natriuretic Peptide 17.7 05/29/22 16:29: POC Glucose 228 H 05/29/22 21:03: POC Glucose 274 H 05/30/22 03:11: WBC 10.1, RBC 4.11 L, Hgb 14.1, Hct 41.4, MCV 100.7 H, MCH 34.3 H, MCHC 34.1, RDW Std Deviation 48.9 H, RDW Coeff of Tarik 13.1, Plt Count 233, MPV 10.0, Immature Gran % (Auto) 0.400, Neut % (Auto) 90.7 H, Lymph % (Auto) 6.7 L, [place] % (Auto) 2.0, Eos % (Auto) 0.1, Baso % (Auto) 0.1, Absolute Neuts (auto) 9.2 H, Absolute Lymphs (auto) 0.68 L, Nucleated RBC % 0 05/30/22 03:11: Sodium 138, Potassium 4.1, Chloride 101, Carbon Dioxide 31.0, Anion Gap 6, BUN 20 H, Creatinine 1.11, Estim Creat Clear Calc 62.11, Est GFR (MDRD) Af Amer 84, Est GFR (MDRD) Non-Af 69, BUN/Creatinine Ratio 18.0, Glucose 244 H, Calcium 9.3, Total Bilirubin 0.40, AST 30, ALT 80 H, Alkaline Phosphatase 61, Total Protein 6.6, Albumin 3.5, Globulin 3.1, Albumin/Globulin Ratio 1.1 Micro: Microbiology 05/29/22 07:40 Nasal Secretion SARS-CoV-2 Antigen (Rapid) - Final ABG Data ABG results: ABG 05/29/22 08:14 Specimen Type ART Sample Site L Radial pH 7.37 Bicarbonate Actual 28.1 H Total CO2 30 Base Excess 3 H O2 Saturation 97 O2 % 30 ABG pCO2 48.5 H ABG pO2 90 Dat Test Positive O2 Delivery Device BiPAP Clinical Comments 16 8 Attestation: I personally reviewed and interpreted this ABG as follows: (See yesterday's note) Radiography Diagnostic Testing: Radiology Impression Chest X-Ray 05/29/22 08:07 IMPRESSION: Hyperinflation. Stable examination. Electronically Signed: Anibal Jimenez MD at 8:46 EDT , Echocardiogram 05/29/22 09:29 Interpretation Summary Exam performed portable in ICU/CCU Normal LV size. Left ventricular systolic function is normal. The estimated ejection fraction is 55 %. Stage 1 diastolic dysfunction. Contrast injection was performed. Ordering Physician: Osvaldo Merritt Performed By: Justo Wei RCS Rhythm Strip Rhythm Strip: Sinus Rhythm (82) Rate: 73 Ectopy: None Physical Exam Const alert, oriented x3 and no apparent distress Constitutional Narrative: On nasal cannula. No conversational dyspnea General Appearance: cooperative and well developed HEENT normocephalic, head/scalp atraumatic and hearing grossly normal bilaterally Eyes PERRL, EOMs intact bilaterally and conjunctivae normal Neck no lymphadenopathy, supple and no JVD Resp no use of accessory muscles Effort and Inspection: tachypneic Auscultation: wheezes expiratory wheezes and throughout (Much improved compared to yesterday.); Negative for rales or rhonchi Cardio regular rate, regular rhythm, S1 normal heart sound, S2 normal heart sound, no murmurs, no rub, no gallops and no JVD GI normal to inspection, nondistended, normoactive bowel sounds, soft to palpation and non-tender Extremity normal to inspection and full ROM General Extremity: edema bilateral (Trace bilateral) lower extremity Skin no rashes or lesions noted, no wounds and skin turgor normal Neuro CN's II-XII intact bilaterally, moves all extremities and no focal motor defi cits Psych affect normal Charges/Coding Visit Charges Inpatient E&M: 89051 Subs Hosp L3
[2022-05-30] MEDS: Multivitamins,Therapeutic Tablet 1 TABLET PO (07:47)
[2022-05-30] MEDS: Insulin Lispro 100 UNIT/ML INSULN.PEN SC ×3 (07:47→16:01)
--- NOTE | 2022-05-30 08:02 | PCM.PN.HOSP ---
Subjective Subjective Follow-up on acute respiratory failure/Acute COPD exacerbation: Patient was seen and examined. He was seen in ICU. Overnight, he has been off Bipap, currently on 4L oxygen. He feels much improved. He has been producing lots of whitish sputum. He denies any fever or chills. His vitals have been stable. Objective Data Objective Data Vital Signs: Vital Signs Temp Pulse Resp BP Pulse Ox O2 Del Method O2 Flow Rate 96.8 F L 75 21 H 141/87 H 93 Nasal Cannula 4 05/30/22 04:00 05/30/22 07:07 05/30/22 07:07 05/30/22 07:00 05/30/22 07:07 05/30/22 07:07 05/30/22 07:07 FiO2 30 05/30/22 05:00 Oxygen Flow Rate (L/min) 4 Oxygen Delivery Method Nasal Cannula Weight: 97 kg Body Mass Index (BMI) 30.5 Intake & Output: Intake and Output for Last 24 Hours 05/28/22 05/29/22 05/30/22 23:59 23:59 23:59 Intake Total 555.00 / 630.00 306.25 / 306.25 Output Total 1700 / 1700 650 / 650 Balance -1145.00 / -1070.00 -343.75 / -343.75 Lab / Micro Data Result Diagrams: 05/30/22 03:11 05/30/22 03:11 Labs: Laboratory Results - last 24 hr 05/29/22 07:25: WBC 10.3, RBC 4.67, Hgb 15.9, Hct 48.1, MCV 103.0 H, MCH 34.0 H, MCHC 33.1, RDW Std Deviation 50.6 H, RDW Coeff of Tarik 13.3, Plt Count 281, MPV 9.7, Immature Gran % (Auto) BUSINESS CONTINUITY CONSULTANT, Neut % (Auto) BUSINESS CONTINUITY CONSULTANT, Lymph % (Auto) BUSINESS CONTINUITY CONSULTANT, [place] % (Auto) BUSINESS CONTINUITY CONSULTANT, Eos % (Auto) BUSINESS CONTINUITY CONSULTANT, Baso % (Auto) BUSINESS CONTINUITY CONSULTANT, Absolute Neuts (auto) 4.5, Absolute Lymphs (auto) 1.85, Total Counted 100, Neutrophils % (Manual) 44 L, Lymphocytes % (Manual) 18 L, Monocytes % (Manual) 16 H, Eosinophils % (Manual) 22 H, Nucleated RBC % BUSINESS CONTINUITY CONSULTANT, Platelet Estimate ADEQUATE, RBC Morphology NORM C+C 05/29/22 07:25: Total Bilirubin 0.70, Direct Bilirubin 0.15, AST 46 H, ALT 100 H, Alkaline Phosphatase 76, Total Protein 7.6, Albumin 4.2, Globulin 3.4 05/29/22 07:25: B-Natriuretic Peptide 17.7 05/29/22 16:29: POC Glucose 228 H 05/29/22 21:03: POC Glucose 274 H 05/30/22 03:11: WBC 10.1, RBC 4.11 L, Hgb 14.1, Hct 41.4, MCV 100.7 H, MCH 34.3 H, MCHC 34.1, RDW Std Deviation 48.9 H, RDW Coeff of Tarik 13.1, Plt Count 233, MPV 10.0, Immature Gran % (Auto) 0.400, Neut % (Auto) 90.7 H, Lymph % (Auto) 6.7 L, [place] % (Auto) 2.0, Eos % (Auto) 0.1, Baso % (Auto) 0.1, Absolute Neuts (auto) 9.2 H, Absolute Lymphs (auto) 0.68 L, Nucleated RBC % 0 05/30/22 03:11: Sodium 138, Potassium 4.1, Chloride 101, Carbon Dioxide 31.0, Anion Gap 6, BUN 20 H, Creatinine 1.11, Estim Creat Clear Calc 62.11, Est GFR (MDRD) Af Amer 84, Est GFR (MDRD) Non-Af 69, BUN/Creatinine Ratio 18.0, Glucose 244 H, Calcium 9.3, Total Bilirubin 0.40, AST 30, ALT 80 H, Alkaline Phosphatase 61, Total Protein 6.6, Albumin 3.5, Globulin 3.1, Albumin/Globulin Ratio 1.1 Micro: Microbiology 05/29/22 07:40 Nasal Secretion SARS-CoV-2 Antigen (Rapid) - Final ABG Data ABG results: ABG 05/29/22 08:14 Specimen Type ART Sample Site L Radial pH 7.37 Bicarbonate Actual 28.1 H Total CO2 30 Base Excess 3 H O2 Saturation 97 O2 % 30 ABG pCO2 48.5 H ABG pO2 90 Dat Test Positive O2 Delivery Device BiPAP Clinical Comments 16 8 Radiography Diagnostic Testing: Radiology Impression Chest X-Ray 05/29/22 08:07 IMPRESSION: Hyperinflation. Stable examination. Electronically Signed: Anibal Jimenez MD at 8:46 EDT , Echocardiogram 05/29/22 09:29 Interpretation Summary Exam performed portable in ICU/CCU Normal LV size. Left ventricular systolic function is normal. The estimated ejection fraction is 55 %. Stage 1 diastolic dysfunction. Contrast injection was performed. Ordering Physician: Osvaldo Merritt Performed By: Justo Wei RCS Rhythm Strip Rhythm Strip: Sinus Rhythm (82) Rate: 73 Ectopy: None Physical Exam Narrative Physical exam: General: Alert, Oriented x3, Cooperative, on 4 L of oxygen HEENT: Atraumatic Oral: Moist Mucosa Neck: Supple Lungs: Barrel chest, diminished to auscultation, no wheezes cardiovascular: HS I+II, regular, no murmurs Abdomen: Bowel Sounds Present, Soft, Non Tender Extremities: No edema Skin: No rashes, No breakdown Neurological: Grossly intact Psych/Mental Status: Appropriate Assessment & Plan Assessment/Plan (1) Acute and chronic respiratory failure with hypoxia: (2) COPD with acute exacerbation: PLAN: Plan 1. Acute hypoxic respiratory failure secondary to Acute COPD exacerbation, improved Patient is currently on 4 L of oxygen Continue with IV Solu-Medrol, breathing treatments, azithromycin Sputum cultures are pending, Pulmonology following 2. Hypertension, controlled, continue on amlodipine, propanolol 3. Type II DM, blood sugars uncontrolled, home glipizide held Will resume, continue with insulin sliding scale 4. Hyperlipidemia, continue statin 5. BPH, continue on Flomax 6. Anxiety/depression, continue Celexa 7. DVT PPx- Heparin SC Disposition -possible discharge in 1 to 2 days Charges/Coding Visit Charges Inpatient E&M: 02373 Subs Hosp L2
[2022-05-30 08:15] LABS: Bedside Glucose 237 mg/dL (74-106)
--- NOTE | 2022-05-30 09:50 | CASEMGMT ---
Addendum entered by Daniel Hill 05/30/22 14:05: Noted pt w/hx of ETOH abuse and hx of smoking. Pt states he quit drinking cold turkey in 2001 and he quit smoking Sep, 2021. Addendum entered by Daniel Hill 05/30/22 13:44: JAY ROA spoke w/Alina RT, @ [facility] @ [phone]. Ext: [phone]. Current O2 orders are for 2 l/m @ rest and @ HS. Pt also has a portable conserving device, but should not use it if he requires more then 3 l/m. Pt made aware of same. Pt's concentrator only goes up to 5 l/m. *Pt cannot discharge home over the weekend if he requires more than 5 l/m O2 either @ rest or w/exertion, as his home O2 equipment would not provide more than that and [facility] cannot provide different equipment over the weekend. *If pt requires any O2 @ rest or more than 2 l/m w/exertion, [facility] Home Oxygen Program Form is to be completed (top portion only showing home O2 testing results) and signed by a physician. This form is then to be faxed to MD @ [phone]. Green sheet placed on chart w/instructions and the [facility] form is attached. The MD will f/u with pt and will schedule an appt for him to be seen w/in 30 days. There physician will then write for updated O2 orders. Original Note: JAY ROA WHITEWASHER CM to room to meet with patient for initial transition planning/care coordination assessment. JAY ROA introduced self and role at [facility]. Pt voices understanding and consents to assessment at this time. Pt sitting up in bed in no distress at this time. Pt is A/O at this time and answers all questions appropriately. Care providers, pharmacy, and demographics verified/updated at this time. PCP: [facility]. Dr Tash Pope Specialists: MD solidworks designer. Pt just finished pulmonary rehab. Preferred Pharmacy: [facility]. Insurance: [facility], [facility] Prescription Benefit: [facility] only Living Will/HPOA: Pt does not currently have LW/HCPOA. He is interested in completing these while @ [facility]. ISAI Deutsch, made aware. Pt made aware, if SW unable to meet w/him prior to discharge, AD can be done as an OP. Pt provided w/Soc Services rac card w/contact # to schedule an appt if he would like LNOK: Sig other, Karma Cade. Pt has a daughter in [place] and a son in [place]. Living Arrangements: Lives w/Karma in one-story home w/basement. No steps to enter thru the back entrance. Independent w/ADL's. Pt and Karma share home mgt tasks. Karma manages medications and appts. Transportation: Pt states drives self and states no transportation concerns at this time. Karma also drives DME: States has the following DME: nebulizer, functioning glucometer w/supplies. O2 through the [facility] is provided by [facility]. He has a concentrator and portable oxygen and states Karma can bring the tank in for him to go home on @ d/c. Pt has a pulse ox. Pt states he wears O2 @ 2 l/m @ rest and 3-4 l/m w/exertion. RN CM will call [facility] to verify. HHC/SNF: No hx of either and pt denies need for HHC. Pt wishes to return home and states has no concerns with going home at time of discharge. Pt voices no further concerns/needs at this time. Advised pt to ask for CM if any further questions/concerns/needs arise. Voices understanding. PLAN: Home w/significant other and discharge plans in place. Follow for any increase in O2 needs @ d/c Jessica YING RN, CM
[2022-05-30] MEDS: Pantoprazole Sodium 20 MG Tablet PO (09:56)
[2022-05-30] MEDS: Citalopram 20 MG Tablet PO (09:56)
[2022-05-30] MEDS: amLODIPine 10 MG Tablet PO (09:56)
[2022-05-30 12:10] LABS: Bedside Glucose 368 mg/dL (74-106)
[2022-05-30] MEDS: glipiZIDE 5 MG Tablet PO (14:08)
--- NOTE | 2022-05-30 14:30 | CASEMGMT ---
Social Work SW received referral for advance directives. SW met with pt and introduced self and role of SW. SW reviewed AD with pt and per pt request, called pt's significant other on speaker phone and explained AD. Pt and his significant other discussed documents and pt chose to complete them. SW assisted pt in completing living Will and HCPOA naming his Significant Other Karma Cade. Copy placed in chart and originals given to pt. MARIA E Reynaga
--- NOTE | 2022-05-30 16:25 | NURSING ---
This RN took over care at this time.
[2022-05-30] MEDS: Pravastatin 80 MG Tablet PO (21:24)
[2022-05-30] MEDS: Tamsulosin HCl 0.4 MG Capsule PO (21:26)
[2022-05-30 23:35] LABS: Bedside Glucose 145 mg/dL (74-106)
[2022-05-31] VITALS (8 sets, daily range): BP systolic 111–136; BP diastolic 70–95; PULSE 56–75; RESP 12–27; TEMP 36.1–36.5; O2SAT 91–96
[2022-05-31 01:51] LABS: Bedside Glucose 271 mg/dL (74-106)
[2022-05-31 06:13] LABS: Absolute Lymphocyte Count 0.78 X10^3/uL (0.83-4.51); Absolute Neutrophil Count 14.8 X10^3/uL (2.0-7.7); Basophil# 0.01 X10^3/uL; Basophil% 0.1 % (0-1); Hematocrit 41.6 % (40-54); Hemoglobin 13.8 g/dL (13.0-16.5); Lymphocyte # 0.78 X10^3/ul (0.83-4.51); Lymphocyte % 4.8 % (19-41); Mean Corp Hgb Conc 33.2 g/dL (32-36); Mean Corpuscular Hgb 33.8 pg (27.0-32.0); Mean Platelet Vol. 10.5 fl (6.2-12.0); Monocyte# 0.52 X10^3/uL; Monocyte% 3.2 % (0-10); NRBC Flagged by Analyzer 0 % (0-5); Neutrophil % 91.1 % (47-70); Platelet Count 269 K/mm3 (150-450); RBC Distribution Width CV 12.9 % (11.6-14.6); RBC Distribution Width SD 48.3 fl (35.1-43.9); Red Blood Count 4.08 M/mm3 (4.6-6.2); White Blood Count 16.2 K/mm3 (4.4-11.0)
[2022-05-31 06:41] LABS: ALB/GLOB Ratio 1.2 RATIO (0.9-2.4); AST(SGOT) 25 U/L (15-37); Alanine Aminotransfer ALT/SGPT 69 U/L (16-61); Albumin, Serum 3.5 g/dL (3.2-5.0); Alkaline Phosphatase 61 U/L (45-117); Anion Gap 5 (5-15); BUN 23 mg/dL (7-18); BUN/Creat Ratio 24.4 RATIO (10-20); Calcium,Total 9.4 mg/dL (8.5-10.1); Chloride 102 mmol/L (98-107); Creatinine, Serum 0.94 mg/dL (0.70-1.30); EST Glomerular Filtration Rate 84 mL/min (>60); Est Glom Filt Rate - Afr Amer 101 mL/min (>60); Estimated Creatinine Clearance 73.35 ml/min; Globulin 2.9 g/dL (2.2-4.2); Glucose 237 mg/dL (74-106); Potassium 4.3 mmol/L (3.5-5.1); Protein, Total 6.4 g/dL (6.4-8.2); Sodium Level 137 mmol/L (136-145)
[2022-05-31] MEDS: Insulin Lispro 100 UNIT/ML INSULN.PEN SC (06:46)
[2022-05-31] MEDS: Propranolol 10 MG Tablet PO (06:46)
[2022-05-31 07:15] LABS: Bedside Glucose 215 mg/dL (74-106)
[2022-05-31] MEDS: Ipratropium/Albuterol Sulfate 3 ML AMPUL.NEB INHALATION (07:37)
[2022-05-31] MEDS: Citalopram 20 MG Tablet PO (08:02)
[2022-05-31] MEDS: glipiZIDE 5 MG Tablet PO (08:02)
[2022-05-31] MEDS: Multivitamins,Therapeutic Tablet 1 TABLET PO (08:02)
[2022-05-31] MEDS: Pantoprazole Sodium 20 MG Tablet PO (08:03)
[2022-05-31] MEDS: amLODIPine 10 MG Tablet PO (08:03)
[2022-05-31 08:06] LABS: Hemoglobin A1c 8.2 % (3.8-5.6)
--- NOTE | 2022-05-31 08:26 | PN.CC_ITS ---
Assessment & Plan Assessment/Plan (1) Acute and chronic respiratory failure with hypoxia: (2) Acute exacerbation of chronic obstructive pulmonary disease: (3) Diabetes: QUALIFIERS: Diabetes mellitus type: type 2 PLAN: Plan RECOMMENDATIONS: 1. Complete 5 days of antibiotics. Okay to transition to p.o. steroids and bronchodilators. 2. Continue incentive spirometer, mucolytic's and Acapella for pulmonary toileting 3. Outpatient work-up by pulmonology for possible Churg-Vanessa 4. Walking oximetry 5. Okay to discharge from a pulmonary perspective if able to ambulate on 6 L or less IMPRESSIONS: 1. Acute on chronic hypoxic respiratory failure Unclear etiology. Patient significantly improved compared to yesterday. Patient did receive diuretics and lower extremity DELANEY is much improved. Patient did have significant eosinophilia on presentation. Outpatient work-up for Churg-Vanessa would be indicated in my opinion. Patient can likely be trans ition to prednisone and wean over the next 12 to 14 days. 5 days of antibiotics would likely be sufficient. Patient will need an outpatient work-up for possible concomitant Churg-Vanessa. If patient able to ambulate on 6 L or less, likely okay to go home from a pulmonary perspective 2. Reported CHF Echocardiogram is not available for review. Patient recently underwent cardiac rehab secondary to a diagnosis of CHF. Echocardiogram did show some diastolic dysfunction. Patient does have some lower extremity edema and significantly elevated blood pressures on presentation. Flash pulmonary edema? Patient responded well to diuretic therapy. Did stress the importance of a low- salt diet to avoid future complications. 3. Diabetes mellitus Patient with elevated blood sugars on presentation. Patient does have an indication for steroid therapy. Recommend sliding scale insulin. Elevated hemoglobin A1c suggestive of suboptimal control. 4. GERD/dyslipidemia/hypertension/BPH/advanced age Complicates care, management, recovery and prognosis. Okay to continue with baseline medications from my perspective. Did discuss at length with patient CODE STATUS on admission. Patient has confirmed that he is a full code and is willing to be intubated if necessary. Subjective Subjective Patient did well overnight. No acute issues were reported. Patient done on 4 L nasal cannula and tolerating well. Patient was able to tolerate BiPAP with sleep. Patient states cough is significantly improved. Patient is also noted improved lower extremity edema. Patient states that he is scheduled to see a director of community services at the [place] in the next 1 to 2 weeks, which was scheduled before this hospitalization. Objective Data Objective Data Vital Signs: Vital Signs Temp Pulse Resp BP Pulse Ox O2 Del Method O2 Flow Rate 36.1 C L 62 27 H 111/95 H 94 Bi-pap 4 05/31/22 03:15 05/31/22 05:11 05/31/22 05:11 05/31/22 06:42 05/31/22 05:11 05/31/22 03:15 05/30/22 21:18 FiO2 30 05/31/22 05:11 Oxygen Flow Rate (L/min) 4 Oxygen Delivery Method Bi-pap Weight: 98.2 kg Body Mass Index (BMI) 30.5 Intake & Output: Intake and Output for Last 24 Hours 05/29/22 05/30/22 05/31/22 23:59 23:59 23:59 Intake Total 555.00 / 630.00 1041.25 / 1041.25 Output Total 1700 / 1700 1200 / 1200 400 / 400 Balance -1145.00 / -1070.00 -158.75 / -158.75 -400 / -400 Lab / Micro Data Attestation: I reviewed the patient's lab results. Result Diagrams: 05/31/22 05:10 05/31/22 05:10 Labs: Laboratory Results - last 24 hr 05/30/22 11:43: POC Glucose 368 H 05/30/22 15:59: POC Glucose 271 H 05/30/22 21:15: POC Glucose 145 H 05/31/22 05:10: WBC 16.2 H, RBC 4.08 L, Hgb 13.8, Hct 41.6, MCV 102.0 H, MCH 33.8 H, MCHC 33.2, RDW Std Deviation 48.3 H, RDW Coeff of Tarik 12.9, Plt Count 269, MPV 10.5, Immature Gran % (Auto) 0.800, Neut % (Auto) 91.1 H, Lymph % (Auto) 4.8 L, [place] % (Auto) 3.2, Eos % (Auto) 0.0, Baso % (Auto) 0.1, Absolute Neuts (auto) 14.8 H, Absolute Lymphs (auto) 0.78 L, Nucleated RBC % 0 05/31/22 05:10: Sodium 137, Potassium 4.3, Chloride 102, Carbon Dioxide 30.0, Anion Gap 5, BUN 23 H, Creatinine 0.94, Estim Creat Clear Calc 73.35, Est GFR (MDRD) Af Amer 101, Est GFR (MDRD) Non-Af 84, BUN/Creatinine Ratio 24.4 H, Glucose 237 H, Calcium 9.4, Total Bilirubin 0.40, AST 25, ALT 69 H, Alkaline Phosphatase 61, Total Protein 6.4, Albumin 3.5, Globulin 2.9, Albumin/Globulin Ratio 1.2 05/31/22 05:25: Hemoglobin A1c 8.2 H 05/31/22 06:44: POC Glucose 215 H Micro: Microbiology 05/29/22 07:35 Blood Culture (Wb) #2 - Right Hand Blood Culture - Pr eliminary No growth in 48 hours. 05/29/22 07:25 Blood Culture (Wb) - Anticubital Left Blood Culture - Preliminary No growth in 48 hours. 05/30/22 08:00 Sputum, Expectorated/Coughed Gram Stain - Final 05/29/22 07:40 Nasal Secretion SARS-CoV-2 Antigen (Rapid) - Final Rhythm Strip Rhythm Strip: Sinus Rhythm (82) Rate: 63 Ectopy: None Physical Exam Const alert, oriented x3 and no apparent distress Constitutional Narrative: On nasal cannula. No conversational dyspnea General Appearance: cooperative and well developed HEENT normocephalic, head/scalp atraumatic and hearing grossly normal bilaterally Eyes PERRL, EOMs intact bilaterally and conjunctivae normal Neck no lymphadenopathy, supple and no JVD Resp no use of accessory muscles Effort and Inspection: Negative for tachypneic Auscultation: diminished lung sounds; Negative for rales, rhonchi or wheezes Cardio regular rate, regular rhythm, S1 normal heart sound, S2 normal heart sound, no murmurs, no rub, no gallops and no JVD GI normal to inspection, nondistended, normoactive bowel sounds, soft to palpation and non-tender Extremity normal to inspection and full ROM General Extremity: edema left (1+) lower extremity Skin no rashes or lesions noted, no wounds and skin turgor normal Neuro CN's II-XII intact bilaterally, moves all extremities and no focal motor deficits Psych affect normal Charges/Coding Visit Charges Inpatient E&M: 79588 Subs Hosp L2
--- NOTE | 2022-05-31 10:17 | DCINST_ITS ---
Discharge Instructions Diet Discharge Diet: Low fat / Low cholesterol, 1800 Calorie Control Diet and 2000 mg Sodium Diet Activity Discharge Activity: Return to Normal Activity Weight Bearing Status: Weight bearing as tolerated Follow Up Care Test Results: Test results from this visit will be discussed in further detail at your follow- up appointment, if applicable. Discharge Plan Admission Admit Date/Time: 05/29/22 08:26 Primary Reason for Your Visit: Acute respiratory failure/Acute COPD exacerbation Attending Provider: Dulce Weeks Primary Care Provider: [facility] Instructions Additional Instructions / Restrictions: Complete your antibiotics and steroid taper as prescribed. Continue to use your breathing treatments/inhaler as needed for shortness of breath. Continue to use your intensive spirometer. Follow-up with your primary care doctor within 1 week. Follow-up with your materials management supervisor in the outpatient as scheduled. You should be undergoing work-up for eosinophilia. Discharge Orders/Prescriptions Prescriptions: New glipizide 5 mg Tablet 5 mg PO BID 30 Days Qty: 60 0RF prednisone 10 mg tablet See Taper PO DAILY 12 Days Qty: 30 0RF Taper: Prednisone Taper 40 mg WITH BREAKFAST for 3 Days and 0 Hour 30 mg WITH BREAKFAST for 3 Days and 0 Hour 20 mg WITH BREAKFAST for 3 Days and 0 Hour 10 mg WITH BREAKFAST for 3 Days and 0 Hour azithromycin 500 mg tablet 500 mg PO DAILY 2 Days Qty: 2 0RF Continued multivitamin Tablet 1 tab PO DAILY melatonin 3 mg Tablet 3 mg PO QHS pravastatin 80 mg Tablet 80 mg PO QHS tamsulosin 0.4 mg Capsule 0.4 mg PO QHS amlodipine 10 mg Tablet 10 mg PO DAILY simethicone 80 mg Tablet 80 mg PO 4X/DAY Spiriva Respimat 2.5 mcg/actuation Mist 2 puff INHALATION DAILY citalopram 10 mg Tablet 20 mg PO DAILY guaifenesin 200 mg Tablet 200 mg PO Q4H PRN (Reason: Cough) albuterol sulfate [Ventolin HFA] 90 mcg/actuation HFA aerosol inhaler 1 inh inhalation PRN PRN (Reason: SOB) pantoprazole 20 mg Tablet,Delayed Release (Dr/Ec) 20 mg PO DAILY propranolol 10 mg Tablet 10 mg PO TID fluticasone propionate 50 mcg/actuation [place],Suspension 1 spray INTRANASAL DAILY Rx Instructions: administer into each nostril hydroxyzine pamoate 25 mg Capsule 25 mg PO BID PRN (Reason: Anxiety) Discontinued glipizide 5 mg Tablet 5 mg PO DAILY prednisone 20 mg tablet 40 mg PO DAILY 7 Days Qty: 14 0RF Referrals / Follow Up: Osvaldo Merritt MD [STAFF PHYSICIAN] - [facility] - In 1 Week Disposition Disposition (needs filled in before D/C Order can be placed): Home, Self Care
--- NOTE | 2022-05-31 10:38 | PCM.DC.SUM ---
Providers Date of Admission: 05/29/22 Date of Discharge: 05/31/22 Primary Care Physician: [facility] Reason For Visit: COPD EXACERBATION Diagnosis Discharge Diagnosis (1) Acute and chronic respiratory failure with hypoxia: Status: Chronic Code(s): J96.21 - Acute and chronic respiratory failure with hypoxia (2) Acute exacerbation of chronic obstructive pulmonary disease: Status: Chronic Code(s): J44.1 - Chronic obstructive pulmonary disease with (acute) exacerbation (3) Diabetes: Status: Chronic Code(s): E11.9 - Type 2 diabetes mellitus without complications Qualifiers: Diabetes mellitus type: type 2 Medications at Discharge Home Medications amlodipine 10 mg tablet 10 mg PO DAILY 12/23/21 melatonin 3 mg tablet 3 mg PO QHS 12/23/21 multivitamin 1 tab PO DAILY 12/23/21 pravastatin 80 mg tablet 80 mg PO QHS 12/23/21 tamsulosin 0.4 mg capsule 0.4 mg PO QHS 12/23/21 simethicone 80 mg tablet 80 mg PO 4X/DAY 01/14/22 tiotropium bromide 2.5 mcg/actuation mist for inhalation (Spiriva Respimat) 2 puff inhalation DAILY 01/14/22 citalopram 10 mg tablet 20 mg PO DAILY 02/21/22 guaifenesin 200 mg tablet 200 mg PO Q4H PRN Cough 02/21/22 albuterol sulfate 90 mcg/actuation aerosol inhaler (Ventolin HFA) 1 inh inhalation PRN PRN SOB 03/24/22 fluticasone propionate 50 mcg/actuation nasal spray,suspension 1 spray intranasal DAILY 04/29/22 hydroxyzine pamoate 25 mg capsule 25 mg PO BID PRN Anxiety 04/29/22 pantoprazole 20 mg tablet,delayed release 20 mg PO DAILY 04/29/22 propranolol 10 mg tablet 10 mg PO TID 04/29/22 azithromycin 500 mg tablet 500 mg PO DAILY 2 days #2 tabs 05/31/22 glipizide 5 mg tablet 5 mg PO BID 30 days #60 tabs 05/31/22 prednisone 10 mg tablet See Taper PO DAILY 12 days #30 tabs 05/31/22 Hospital Course Operations None Procedures 2-D Echocardiogram Summary of Care Provided Minutes Spent on Discharge: 30 Hospital Course: 71-year-old male with past medical history of hypertension, type II DM, chronic hypoxic respiratory failure secondary to COPD, on 4 L of oxygen at home who comes in with progressive shortness of breath, subjective fever with chills and greenish-bunch sputum production. Patient was found to be in acute hypoxic respiratory failure secondary to acute COPD exacerbation. He was initially cyanotic in the ED and started on BiPAP. He was admitted to the ICU. Wrap Turner consulted. Started on breathing treatment, IV Solu-Medrol. He received a couple of doses of Lasix. 2D echo showed EF of 5%, stage I diastolic dysfunction.Patient was also started on IV azithromycin. Patient generally improved, was off BiPAP, was back to his baseline 4 L of oxygen. He was evaluated for oxygen at discharge and did not require more oxygen. Patient had evidence of eosinophilia and was recommended to see his jde developer or see the jde developer in [facility] to have evaluation for Churg-Vanessa syndrome. At the time of discharge, his sputum cultures were pending. Patient was discharged on 2 more days of azithromycin making a total of 5 days. He was also discharged on prednisone taper. He has a pulmonology appointment in the [place] next week. Physical Exam Narrative Physical exam: General: Alert, Oriented x3, on 4L oxygen, not pale, well hydrated HEENT: Atraumatic Oral: Moist Mucosa Neck: Supple Lungs:Diminished to auscultation Cardiovascular: HS I+II, regular, no murmurs Abdomen: Bowel Sounds Present, Soft, Non Tender Extremities: Trace bilateral pedal edema Skin: No rashes, No breakdown Neurological: Grossly intact Psych/Mental Status: Appropriate Weight / BMI Weight Weight: 98.2 kg Body Mass Index (BMI) 30.5 ABG / Lab / Microbiology Data Result Diagrams: 05/31/22 05:10 05/31/22 05:10 Laboratory: Laboratory Results - last 24 hr 05/30/22 11:43: POC Glucose 368 H 05/30/22 15:59: POC Glucose 271 H 05/30/22 21:15: POC Glucose 145 H 05/31/22 05:10: WBC 16.2 H, RBC 4.08 L, Hgb 13.8, Hct 41.6, MCV 102.0 H, MCH 33.8 H, MCHC 33.2, RDW Std Deviation 48.3 H, RDW Coeff of Tarik 12.9, Plt Count 269, MPV 10.5, Immature Gran % (Auto) 0.800, Neut % (Auto) 91.1 H, Lymph % (Auto) 4.8 L, [place] % (Auto) 3.2, Eos % (Auto) 0.0, Baso % (Auto) 0.1, Absolute Neuts (auto) 14.8 H, Absolute Lymphs (auto) 0.78 L, Nucleated RBC % 0 05/31/22 05:10: Sodium 137, Potassium 4.3, Chloride 102, Carbon Dioxide 30.0, Anion Gap 5, BUN 23 H, Creatinine 0.94, Estim Creat Clear Calc 73.35, Est GFR (MDRD) Af Amer 101, Est GFR (MDRD) Non-Af 84, BUN/Creatinine Ratio 24.4 H, Glucose 237 H, Calcium 9.4, Total Bilirubin 0.40, AST 25, ALT 69 H, Alkaline Phosphatase 61, Total Protein 6.4, Albumin 3.5, Globulin 2.9, Albumin/Globulin Ratio 1.2 05/31/22 05:25: Hemoglobin A1c 8.2 H 05/31/22 06:44: POC Glucose 215 H Microbiology: Microbiology 05/30/22 08:00 Sputum, Expectorated/Coughed Gram Stain - Final 05/30/22 08:00 Sputum, Expectorated/Coughed Respiratory Culture - Preliminary Alpha Hemolytic Streptococcus 05/29/22 07:35 Blood Culture (Wb) #2 - Right Hand Blood Culture - Preliminary No growth in 48 hours. 05/29/22 07:25 Blood Culture (Wb) - Anticubital Left Blood Culture - Preliminary No growth in 48 hours. 05/29/22 07:40 Nasal Secretion SARS-CoV-2 Antigen (Rapid) - Final D/C Instructions Discharge Diet: Low fat / Low cholesterol, 1800 Calorie Control Diet and 2000 mg Sodium Diet Weight Bearing Status: Weight bearing as tolerated Meaningful Use Info Meaningful Use Diagnoses (Choose all that apply): None applicable Discharge Plan Admission Admit Date/Time: 05/29/22 08:26 Primary Reason for Your Visit: Acute respiratory failure/Acute COPD exacerbation Attending Provider: Dulce Weeks Primary Care Provider: [facility] Instructions Additional Instructions / Restrictions: Complete your antibiotics and steroid taper as prescribed. Continue to use your breathing treatments/inhaler as needed for shortness of breath. Continue to use your intensive spirometer. Follow-up with your primary care doctor within 1 week. Follow-up with your jde developer in the outpatient as scheduled. You should be undergoing work-up for eosinophilia. Discharge Orders/Prescriptions Prescriptions: New glipizide 5 mg Tablet 5 mg PO BID 30 Days Qty: 60 0RF prednisone 10 mg tablet See Taper PO DAILY 12 Days Qty: 30 0RF Taper: Prednisone Taper 40 mg WITH BREAKFAST for 3 Days and 0 Hour 30 mg WITH BREAKFAST for 3 Days and 0 Hour 20 mg WITH BREAKFAST for 3 Days and 0 Hour 10 mg WITH BREAKFAST for 3 Days and 0 Hour azithromycin 500 mg tablet 500 mg PO DAILY 2 Days Qty: 2 0RF Continued multivitamin Tablet 1 tab PO DAILY melatonin 3 mg Tablet 3 mg PO QHS pravastatin 80 mg Tablet 80 mg PO QHS tamsulosin 0.4 mg Capsule 0.4 mg PO QHS amlodipine 10 mg Tablet 10 mg PO DAILY simethicone 80 mg Tablet 80 mg PO 4X/DAY Spiriva Respimat 2.5 mcg/actuation Mist 2 puff INHALATION DAILY citalopram 10 mg Tablet 20 mg PO DAILY guaifenesin 200 mg Tablet 200 mg PO Q4H PRN (Reason: Cough) albuterol sulfate [Ventolin HFA] 90 mcg/actuation HFA aerosol inhaler 1 inh inhalation PRN PRN (Reason: SOB) pantoprazole 20 mg Tablet,Delayed Release (Dr/Ec) 20 mg PO DAILY propranolol 10 mg Tablet 10 mg PO TID fluticasone propionate 50 mcg/actuation [place],Suspension 1 spray INTRANASAL DAILY Rx Instructions: administer into each nostril hydroxyzine pamoate 25 mg Capsule 25 mg PO BID PRN (Reason: Anxiety) Discontinued glipizide 5 mg Tablet 5 mg PO DAILY prednisone 20 mg tablet 40 mg PO DAILY 7 Days Qty: 14 0RF Referrals / Follow Up: Osvaldo Merritt MD [STAFF PHYSICIAN] - [facility] Weeks [facility] [Primary Care [facility] - In 1 Week Disposition Disposition (needs filled in before D/C Order can be placed): Home, Self Care Charges/Coding Visit Charges Inpatient E&M: 75588 Disch Hosp
== END 2022-05-31 11:19 | disposition home or self-care (01) | DRG 190 ==
LOC: ED 08:23 → ICU 05-30 07:25 → PCU 05-31 10:32 → ICU 06-02 13:14 → PCU 06-02 13:14
PROVIDERS: Admitting Provider Internal Medicine; Emergency Provider Emergency Medicine; Visit Provider Internal Medicine
DX: J44.1 Chronic obstructive pulmonary disease with (acute) exacerbation (principal); J96.21 Acute and chronic respiratory failure with hypoxia; I50.30 Unspecified diastolic (congestive) heart failure; D72.10 Eosinophilia, unspecified; I11.0 Hypertensive heart disease with heart failure; E11.65 Type 2 diabetes mellitus with hyperglycemia; Z79.4 Long term (current) use of insulin; E78.00 Pure hypercholesterolemia, unspecified; K21.9 Gastro-esophageal reflux disease without esophagitis; F41.9 Anxiety disorder, unspecified; N40.0 Benign prostatic hyperplasia without lower urinary tract symptoms; F32.A Depression, unspecified; Z99.81 Dependence on supplemental oxygen; Z79.84 Long term (current) use of oral hypoglycemic drugs; Z79.899 Other long term (current) drug therapy; Z87.891 Personal history of nicotine dependence
CPT/HCPCS: 36415; 36600; 71045; 80048; 80053; 80076; 82803; 82962; 83036; 83605; 83880; 85025; 87040; 87070; 87205; 87426; 93005; 93306; 94002; 94003; 94640; 99251; 99285; J7050; Q9957; A4216; C8929; G0463; J1940

== ENCOUNTER 2022-09-23 06:33 | Day surgery (SDC) | payer OTHER, SELFPAY ==
[2022-04-22 08:14] VITALS: BMI 30.6
[2022-09-23] VITALS (7 sets, daily range): BP systolic 101–134; BP diastolic 64–92; PULSE 64–77; RESP 16–19; TEMP 36.4–37.2; O2SAT 92–97; BMI 30.8
[2022-09-23] MEDS: Lactated Ringers 1,000 ML 15 ML IV (06:50)
--- NOTE | 2022-09-23 06:53 | HP.PCM_ITS ---
History and Physical Date of Admission: 09/23/22 Visit Reasons:?C-Scope Chief Complaint: SOB/COPD Excacerbation Allergies gabapentin Adverse Reaction (Unknown, Unverified 08/21/22 08:56) PT UNSURE OF REACTIONrosuvastatin Adverse Reaction (Unknown, Unverified 08/21/22 08:56) PT UNSURE OF REACTIONhydrozyzine Adverse Reaction (Unknown, Uncoded 08/21/22 08:56) PT UNSURE OF REACTION PFSH Medical History?(Updated 08/21/22 @ 08:53 by Юлия Shay) Acute maxillary sinusitis, unspecified Alcohol use Arthritis Benign essential hypertension Bilateral pneumonia COPD (chronic obstructive pulmonary disease) Degenerative joint disease of hand Depression Diabetes Easy bruising Encounter for screening for COVID-19 Former smoker Gastric reflux Hepatitis High cholesterol History of steroid therapy Hyperlipidemia Hypertension Leg cramps On home oxygen therapy Shortness of breath on exertion Smoking greater than 40 pack years Wears dentures Wears glasses Wears hearing aid Surgical History? H/O wrist surgery History of hand surgery Hx of appendectomy Hx of colonoscopy Family History? Father?? Cancer Heart diseaseMother?? Heart disease Myocardial infarction Social History? household members:? spouse Smoking Status:? Former smoker quit date: 09/26/21 pack-years: 90 Tobacco: How many years used:? 60 alcohol intake:? former substance use type:? does not use HPI HPI HPI: 72-year-old gentleman who is being referred by the [place] [facility] for surgical consultation regarding a screening colonoscopy and a written copy of my surgical consult and recommendations will return to them.? The patient has a history of piecemeal polypectomy twice once January 2015 and secondarily September 04, 2018.? The patient's most recent colonoscopy was February 09, 2019 and a small polyp of the cecum was removed with cold forceps.? Additional findings suggested previous intervention in the ascending colon.? An additional small polyp was seen in the descending colon.? Follow-up colonoscopy in 3 years recommended.? The polyp of the cecum was hyperplastic and the polyp of the descending colon was tubular adenoma.? It is of additional note that the patient has biopsy- proven prostate adenocarcinoma with a Zhen score of 6 The patient is referred by Tash Pope NP The patient has a previous history of reflux disease as well and is on chronic pantoprazole therapy 20 mg daily.? He states that this currently is not an issue for him. ROS General General: Yes fatigue; No weight change, appetite, colon cancer, breast cancer or weakness HEENT HEENT: Yes eye surgery; No difficulty swallowing, eye injury, swollen glands or hoarseness Endo Endocrine: Yes diabetes mellitus; No thyroid disease, thyroid cancer, Hair loss, heat intolerance or cold intolerance Skin Skin: No rash or changing moles Breast Breast: No left breast lump, right breast lump, nipple discharge, breast pain, abnormal mammogram, abnormal US or breast enlargement Musc Musculoskeletal: Yes arthritis and rheumatoid arthritis; No back problems, gout or joint pain Cardio Cardiovascular: Yes high blood pressure; No murmur, pacemaker, heart disease, atrial fibrillation, heart attack, heart stent, palpitations, shortness of breat with exertion or chest pain Psych Psychiatric: No depression, anxiety or hearing voices Resp Respiratory: Yes shortness of breath, Yes sleep apnea, No cough, Yes COPD, No asthma, No emphysema and No wheezing Gastro Gastrointestinal: Yes abdominal pain, No nausea or vomiting, Yes diarrhea, Yes constipation, No blood in stool, No acid reflux, Yes hemorrhoids, No ulcers, No gallbladder problem and No black,tarry stools Chevy Hematologic: No blood thinners, No blood disorders, No bleeding, No anemia and No blood clots Neuro Neurologic: No system reviewed and no additional complaints, except as documented, No as per HPI, No abnormal gait, No abnormal hearing, No abnormal movements, No abnormal speech, No behavioral changes, No burning sensations, No confusion, No convulsions, No disequilibrium, No dizziness, No localized weakness, No frequent falls, No headache(s), No lack of coordination, No loss of vision, No memory loss, Yes numbness, No other visual disturbances, No radicular pain, No restless legs, No sensory deficit, No syncope, Yes tingling, No tremor(s), No weakness and No other Exam Const General: cooperative, comfortable and no acute distress Other: Nasal prong oxygen in place HENMT Head: normal to inspection Chest Other: Increased anterior posterior diameter Resp Effort & Inspection: decreased respiratory effort Auscultation: clear to auscultation bilaterally Cardio Rate: regular rate Rhythm: regular rhythm GI Other: Overweight, I cannot detect any internal organs, nontender, normal bowel sounds Musc Cervical Spine: normal cervical lordosis Skin General: no rashes or lesions noted Neuro General: patient alert, patient awake and patient oriented x3 Extrem General: no calf tenderness Psych Appearance: grossly normal Assessment and Plan Assessment and Plan (1) Personal history of colonic polyps: ?Status:?Acute ?Plan: The patient is mostly oxygen dependent.? I recommend a colonoscopy with possible biopsy or polypectomy as indicated.? Personal history of colon polyps.? He is only on a low-dose aspirin.? He may continue that.? We will utilize monitored anesthesia care because of his increased pulmonary risk. He has biopsy-proven prostate cancer but according to he and his he is electing a conservative noninterventional approach which was offered to him. I appreciate the opportunity of assisting with the surgical care Copy: Tash Pope NP [facility] Mikael Singletary M.D., F.A.C.S I have examined the patient and the H&P has been reviewed. There are no clinical changes since date of exam. Mikael Singletary M.D., F.A.C.S.
[2022-09-23 07:35] LABS: Bedside Glucose 179 mg/dL (74-106)
--- NOTE | 2022-09-23 07:45 | COLBX_PTH ---
PATIENT: NAUN GARCÍA LOC: EN U#:[id number] AGE/SX: 72/M ROOM: RE09/23/[address]: Dr. Mikael Singletary MD : 1950 BED: DIS: 09/23/2022 SPEC #: [id number] RECD: 09/23/22 10:03 STATUS: DIANA SUKHWINDER #: [id number] LILY: 09/23/22 07:[address]: Mikael Singletary DEPT: SURGICAL PATHOLOGY RECD BY: Inez Wooten ENTERED: 09/23/22 10:37 SP TYPE: COLON BX DANIEL DR: [facility] Tissues: A - Transverse colon B - Descending colon C - Sigmoid colon biopsy D - Sigmoid colon biopsy Procedures: Surgery Specimen Level IV HEADER OPERATION: Colonoscopy (MAC) PRE-OP DIAGNOSIS: Personal history of colonic polyps TISSUE SUBMITTED: A. Mid transverse polyp biopsy, B. Descending polyp biopsy, C. Proximal sigmoid polyp biopsy, D. Distal sigmoid polyp biopsy MICROSCOPIC DIAGNOSIS A. Mid transverse polyp, biopsy: Tubular adenoma. B. Descending polyp, biopsy: A fragment of colonic mucosa, no pathologic diagnosis. C. Proximal sigmoid polyp, biopsy: Hyperplastic polyp. D. Distal sigmoid polyp, biopsy: Fragments of hyperplastic polyp. /SJ 09/24/22 MICROSCOPIC DESCRIPTION Slides are reviewed. GROSS DESCRIPTION A. Received is one container labeled with the patient name and designated mid transverse polyp. The specimen consists of one irregular fragment of light soto soft tissue that measures 0.3 x 0.3 x 0.1 cm. The specimen is totally submitted in one cassette. B. Received is one container labeled with the patient name and designated descending polyp. The specimen consists of one irregular fragment of light soto soft tissue that measures 0.4 x 0.4 x 0.1 cm. The specimen is totally submitted in one cassette. C. Received is one container labeled with the patient name and designated proximal sigmoid polyp. The specimen consists of one irregular fragment of light soto soft tissue that measures 0.3 x 0.3 x 0.1 cm. The specimen is totally submitted in one cassette. D. Received is one container labeled with the patient name and designated distal sigmoid polyp. The specimen consists of The specimen consists of multiple irregular fragments of light soto soft tissue that in aggregate measure 1 x 0.3 x 0.1 cm. The specimen is totally submitted in one cassette. /KATINA?cc 09/23/2022 TC:1 [facility]:[id number] x4
--- NOTE | 2022-09-23 08:10 | OP.CCLET_ITS ---
09/23/2022 [facility] Re : Colonoscopy procedure for [facility] This procedure was performed on Friday, September 23, 2022. My impressions and recommendations are as follows: Impressions : - Preparation of the colon was fair. - Non-thrombosed external hemorrhoids, non-thrombosed internal hemorrhoids, internal hemorrhoids that prolapse with straining, but spontaneously regress to the resting position (Grade II) and enlarged prostate found on digital rectal exam. - One 6 mm polyp in the mid transverse colon, removed with a cold biopsy forceps. Resected and retrieved. - One 5 mm polyp in the mid descending colon, removed with a cold biopsy forceps. Resected and retrieved. - One 4 mm polyp in the proximal sigmoid colon, removed with a cold biopsy forceps. Resected and retrieved. - One 4 mm polyp in the distal sigmoid colon, removed with a cold biopsy forceps. Resected and retrieved. - Diverticulosis in the sigmoid colon. Recommendations : - Discharge patient to home. - Resume previous diet. - Continue present medications. - Telephone my office for pathology results in 1 week. - Repeat colonoscopy in 5 years for surveillance based on pathology results. My findings are described in the full procedure note, which is enclosed. If I can be of further assistance, please feel free to contact me at Doctor phone number(s): Work: . Sincerely, Mikael Singletary MD 09/23/2022 8:10:15 AM This report has been signed electronically.
--- NOTE | 2022-09-23 08:10 | OP.COLON_ITS ---
Patient Name: Darby Vitale Procedure Date: 09/23/2022 7:33 AM Date of : 1950 Age: 72 Procedure: Colonoscopy Indications: High risk colon cancer surveillance: Personal history of colonic polyps Providers: Mikael Singletary MD Medicines: See the Anesthesia note for documentation of the administered medications Patient Profile: Last Colonoscopy: 2018. Complications: No immediate complications. Procedure: Pre-Anesthesia Assessment: - Prior to the procedure, a History and Physical was performed, and patient medications and allergies were reviewed. The patient's tolerance of previous anesthesia was also reviewed. The risks and benefits of the procedure and the sedation options and risks were discussed with the patient. All questions were answered, and informed consent was obtained. Prior Anticoagulants: The patient has taken no previous anticoagulant or antiplatelet agents. ASA Grade Assessment: III - A patient with severe systemic disease. After reviewing the risks and benefits, the patient was deemed in satisfactory condition to undergo the procedure. After I obtained informed consent, the scope was passed under direct vision. Throughout the procedure, the patient's blood pressure, pulse, and oxygen saturations were monitored continuously. The Colonoscope was introduced through the anus and advanced to the cecum, identified by appendiceal orifice and ileocecal valve. The colonoscopy was performed without difficulty. The patient tolerated the procedure well. The quality of the bowel preparation was fair. The ileocecal valve and the appendiceal orifice were photographed. Scope In: 7:46:27 AM Scope Withdrawal Time 0 hours 12 minutes 2 seconds Scope Out: 8:02:21 AM Total Procedure Duration Time 0 hours 15 minutes 54 seconds Findings: The digital rectal exam findings include non-thrombosed external hemorrhoids, non-thrombosed internal hemorrhoids, internal hemorrhoids that prolapse with straining, but spontaneously regress to the resting position (Grade II) and enlarged prostate. A 6 mm polyp was found in the mid transverse colon. The polyp was sessile. The polyp was removed with a cold biopsy forceps. Resection and retrieval were complete. A 5 mm polyp was found in the mid descending colon. The polyp was sessile. The polyp was removed with a cold biopsy forceps. Resection and retrieval were complete. A 4 mm polyp was found in the proximal sigmoid colon. The polyp was sessile. The polyp was removed with a cold biopsy forceps. Resection and retrieval were complete. A 4 mm polyp was found in the distal sigmoid colon. The polyp was sessile. The polyp was removed with a cold biopsy forceps. Resection and retrieval were complete. Scattered diverticula were found in the sigmoid colon. Impression: - Preparation of the colon was fair. - Non-thrombosed external hemorrhoids, non-thrombosed internal hemorrhoids, internal hemorrhoids that prolapse with straining, but spontaneously regress to the resting position (Grade II) and enlarged prostate found on digital rectal exam. - One 6 mm polyp in the mid transverse colon, removed with a cold biopsy forceps. Resected and retrieved. - One 5 mm polyp in the mid descending colon, removed with a cold biopsy forceps. Resected and retrieved. - One 4 mm polyp in the proximal sigmoid colon, removed with a cold biopsy forceps. Resected and retrieved. - One 4 mm polyp in the distal sigmoid colon, removed with a cold biopsy forceps. Resected and retrieved. - Diverticulosis in the sigmoid colon. Recommendation: - Discharge patient to home. - Resume previous diet. - Continue present medications. - Telephone my office for pathology results in 1 week. - Repeat colonoscopy in 5 years for surveillance based on pathology results. Procedure Code(s): --- Professional --- 18544, Colonoscopy, flexible; with biopsy, single or multiple Diagnosis Code(s): --- Professional --- Z86.010, Personal history of colonic polyps K64.1, Second degree hemorrhoids K64.4, Residual hemorrhoidal skin tags D12.3, Benign neoplasm of transverse colon (hepatic flexure or splenic flexure) D12.4, Benign neoplasm of descending colon D12.5, Benign neoplasm of sigmoid colon K57.30, Diverticulosis of large intestine without perforation or abscess without bleeding N40.0, Benign prostatic hyperplasia without lower urinary tract symptoms CPT copyright 2017 [employer]. All rights reserved. The codes documented in this report are preliminary and upon rolling machine operator review may be revised to meet current compliance requirements. Mikael Singletary MD 09/23/2022 8:10:15 AM This report has been signed electronically. Number of Addenda: 0 Note Initiated On: 09/23/2022 7:33 AM
== END 2022-09-23 08:55 | disposition home or self-care (01) ==
LOC: EN 06:33 → AC 06:34
PROVIDERS: Visit Provider Surgery
PROC: 0DJD8ZZ Inspection of Lower Intestinal Tract, Via Natural or Artificial Opening Endoscopic (ICD-10-PCS; CPT 45378; principal; 2022-09-23 07:40)
DX: Z12.11 Encounter for screening for malignant neoplasm of colon (principal); J44.9 Chronic obstructive pulmonary disease, unspecified; E11.9 Type 2 diabetes mellitus without complications; D12.3 Benign neoplasm of transverse colon; K64.4 Residual hemorrhoidal skin tags; K64.1 Second degree hemorrhoids; N40.0 Benign prostatic hyperplasia without lower urinary tract symptoms; K57.30 Diverticulosis of large intestine without perforation or abscess without bleeding; G47.30 Sleep apnea, unspecified; F41.9 Anxiety disorder, unspecified; I10 Essential (primary) hypertension; F32.A Depression, unspecified; E78.00 Pure hypercholesterolemia, unspecified; Z87.891 Personal history of nicotine dependence; Z86.010 Personal history of colon polyps; Z79.899 Other long term (current) drug therapy; Z99.81 Dependence on supplemental oxygen
CPT/HCPCS: 45380; 82962; 88305; J7120; J2405

== ENCOUNTER 2022-10-13 11:32 | Emergency (ER) | payer OTHER, SELFPAY ==
[2022-04-22 08:14] VITALS: BMI 30.6
[2022-10-13 11:32] VITALS: BP 178/104; PULSE 86; RESP 16; TEMP 36.6; O2SAT 97; BMI 32.6
--- NOTE | 2022-10-13 12:15 | VDLE_ITS ---
Reason For Study: LEG SWELLING Procedure LEFT Exam performed portable in ED. GSV is normal. The exam was diagnostic. CFV is compressible, spontaneous, phasic, A preliminary report was called and/or faxed competent, and demonstrates normal to Devora KHAN. augmentation. FV is compressible, spontaneous, phasic, competent and demonstrates normal augmentation. POP V is compressible, spontaneous, phasic, competent and demonstrates normal augmentation. T/P Trunk is compressible. PTV is compressible. LT PerV is compressible. VL/Venous Duplex US, Unilateral Interpretation Summary Deep veins of the left lower extremity are patent and compressible segmentally. There is no evidence of left lower extremity deep vein thrombosis. Valvular competence appears intac t within the proximal deep venous system on the left . The left great saphenous vein appears patent a nd compressible segmentally. Ordering Physician: Devora Dimas Referring Physician: [facility] Performed By: Mark Lott RVT
--- NOTE | 2022-10-13 12:20 | EDS_ITS ---
HPI <BILL Monsivais - Last Filed: 10/13/22 15:06> History of Present Illness Chief Complaint: Lower Extremity Injury Narrative Narrative: Patient presents today with mild swelling to his left foot and ankle that started 3 days ago. He states he did not injure this extremity at all and it does not cause him any pain. He has no past medical history of blood clots, gout, CHF, or chronic venous insufficiency. He denies chest pain, shortness of breath, and difficulty breathing. PFS <BILL Monsivais - Last Filed: 10/13/22 15:06> [facility] Medical History Acute maxillary sinusitis, unspecified Alcohol use Aneurysm Anxiety Arthritis Benign essential hypertension Bilateral pneumonia Chronic cough COPD (chronic obstructive pulmonary disease) Degenerative joint disease of hand Depression Diabetes Easy bruising Encounter for screening for COVID-19 Excessive bleeding Former smoker Gastric reflux Hepatitis High cholesterol History of echocardiogram History of edema History of steroid therapy History of stress test Hyperlipidemia Hypertension Leg cramps Migraine headache On home oxygen therapy Shortness of breath on exertion Smoking greater than 40 pack years Wears dentures Wears glasses Wears hearing aid Home Medications amlodipine 10 mg tablet 10 mg PO DAILY HTN 12/23/21 [History Last Taken Unknown] melatonin 3 mg tablet 3 mg PO QHS 12/23/21 [History Last Taken Unknown] multivitamin 1 tab PO DAILY 12/23/21 [History Last Taken Unknown] tamsulosin 0.4 mg capsule 0.4 mg PO QHS 12/23/21 [History Last Taken Unknown] simethicone 80 mg tablet 80 mg PO 4X/DAY 01/14/22 [History Last Taken Unknown] tiotropium bromide 2.5 mcg/actuation mist for inhalation (Spiriva Respimat) 2 puff inhalation DAILY 01/14/22 [History Last Taken Unknown] citalopram 10 mg tablet 20 mg PO DAILY MOOD 02/21/22 [History Last Taken Unknown] guaifenesin 200 mg tablet 200 mg PO Q4H PRN Cough 02/21/22 [History Last Taken Unknown] albuterol sulfate 90 mcg/actuation aerosol inhaler (Ventolin HFA) 1 inh inhalation BID 03/24/22 [History Last Taken Unknown] fluticasone propionate 50 mcg/actuation nasal spray,suspension 1 spray intranasal DAILY 04/29/22 [History Last Taken Unknown] pantoprazole 20 mg tablet,delayed release 20 mg PO DAILY GERD 04/29/22 [History Last Taken Unknown] glipizide 5 mg tablet 5 mg PO BID 30 days #60 tabs 05/31/22 [Rx Last Taken Unknown] atorvastatin 20 mg PO/SL DAILY 10/13/22 [History Last Taken Unknown] lisinopril 10 mg PO/SL DAILY 10/13/22 [History Last Taken Unknown] primidone 50 mg PO/SL QHS 10/13/22 [History Last Taken Unknown] Allergy/AdvReac Type Severity Reaction Status Date / Time gabapentin AdvReac Unknown PT UNSURE Unverified 10/13/22 11:34 OF REACTION rosuvastatin AdvReac Unknown PT UNSURE Unverified 10/13/22 11:34 OF REACTION hydrozyzine AdvReac Unknown PT UNSURE Uncoded 10/13/22 11:34 OF REACTION Family History Father Cancer Heart disease Mother Heart disease Myocardial infarction Surgical History H/O wrist surgery History of cataract surgery History of esophagogastroduodenoscopy (EGD) History of hand surgery Hx of appendectomy Hx of colonoscopy Social History household members: spouse Smoking Status: Former smoker quit date: 09/26/21 pack-years: 90 Tobacco: How many years used: 60 alcohol intake: former substance use type: does not use ROS <BILL Monsivais - Last Filed: 10/13/22 15:06> ROS ED Constitutional Constitutional ED: Denies chills, fever(s) or sweats Eyes Eyes: Denies blurry vision, change in vision or diplopia ENT ENT ED: Denies nasal congestion, rhinorrhea or sore throat Cardiovascular Cardiovascular: Denies chest pain, palpitations or racing heartbeat Respiratory/Chest Respiratory/Chest: Denies cough, dyspnea, dyspnea on exertion or shortness of breath at rest Gastrointestinal Gastrointestinal: Denies abdominal pain, diarrhea, nausea or vomiting Genitourinary Genitourinary ED: Denies dysuria, hematuria or urinary frequency Musculoskeletal Musculoskeletal: Denies arthralgias, myalgias or neck pain Integumentary Denies abscess, Abrasions or rash Neurologic Neurologic: Denies headache(s), paresthesias or weakness Psychiatric Psychiatric: Denies anxiety or depression EXAM <BILL Monsivais - Last Filed: 10/13/22 15:06> Physical Exam Const Vital Signs: 10/13/22 11:32 Temperature 97.9 F Temperature Source Temporal Pulse Rate 86 Respiratory Rate 16 Blood Pressure 178/104 H Blood Pressure Mean 128 Pulse Ox 97 Oxygen Delivery Method Room Air Positive well nourished and well developed General Appearance ED: well developed and NAD HEENT Reports moist mucous membranes Negative for trauma or tenderness Eyes PERRL and EOMs intact bilaterally Neck supple Chest Wall inspection of chest normal Resp normal respiratory effort Resp Narrative: Expiratory wheezes secondary to COPD. Cardio regular rate, regular rhythm and no murmurs GI non-tender, non-distended and no masses Palpation: soft Back/Spine Cervical Spine: Negative for cervical spine tenderness Thoracic Spine / Upper Back: Negative for thoracic spinal tenderness Lumbar Spine / Lower Back: Negative for lumbar spinal tenderness Extremity Extremity Narrative: Minimal edema in the left foot and ankle. No edema in the left lower leg, no tenderness, no erythema. Right lower leg without edema, erythema, or tenderness. Neuro oriented x3, CN's II-XII intact bilaterally and no sensory deficits noted Sensorium / Orientation: alert Motor Exam: strength 5/5 throughout Psych mental status grossly normal Skin skin turgor normal Skin Narrative: Small healing abrasion to left lower leg patient received when he was outside [facility] last week. Rashes: No rashes noted <Dr. Arthur Arana MD - Last Filed: 10/13/22 14:58> Physical Exam Const Vital Signs: 10/13/22 11:32 Temperature 97.9 F Temperature Source Temporal Pulse Rate 86 Respiratory Rate 16 Blood Pressure 178/104 H Blood Pressure Mean 128 Pulse Ox 97 Oxygen Delivery Method Room Air MDM <BILL Monsivais - Last Filed: 10/13/22 15:06> [facility] MDM Narrative Medical decision making narrative: Ultrasound did not show DVT. This does not look like gout or an infection. This is not painful for the patient. The swelling in the L ankle is very minimal and does not go up the left lower leg. I do not think any further imaging is needed. I am comfortable with patient discharging home and patient is comfortable with plan. I have given patient RICE instructions. <Dr. Arthur Arana MD - Last Filed: 10/13/22 14:58> [facility] Treatment and Re-Evaluation Narrative: I have personally performed a face to face assessment of the patient and have reviewed the LUIGI Note. I performed a substantive portion of the visit including all aspects of the following. My crook findings include: History: Patient states he noticed that he had some swelling around his left ankle and foot today. He states it does not hurt. No fevers or chills. Denies trauma. He was actually able to walk up here with it. Somebody told him it could be fluid overload. No history of gout. Exam: There is a little bit of swelling just around the ankle. The foot itself shows no swelling. Even the patient states the swelling is down there. I do not note any swelling up in the calf but he is did say he had some soreness in the posterior calf. There are a few skin abrasions on the lateral aspect but these are kind of chronic and they do not look at all infected. No cord. Medical Decison Making: We did do ultrasound. This shows no DVT. He has no pain. I do not think x-rays or blood work are needed. No indication of infection or gout. Discharge Plan Triage Chief Complaint: Lower Extremity Injury ED Midlevel Provider: Devora Dimas ED Provider: Arthur Arana Dx/Rx/DC Orders Clinical Impression: Left ankle swelling Instructions: ED RICE Prescriptions: No Action multivitamin Tablet 1 tab PO DAILY melatonin 3 mg Tablet 3 mg PO QHS tamsulosin 0.4 mg Capsule 0.4 mg PO QHS amlodipine 10 mg Tablet 10 mg PO DAILY simethicone 80 mg Tablet 80 mg PO 4X/DAY Spiriva Respimat 2.5 mcg/actuation Mist 2 puff INHALATION DAILY citalopram 10 mg Tablet 20 mg PO DAILY guaifenesin 200 mg Tablet 200 mg PO Q4H PRN (Reason: Cough) albuterol sulfate [Ventolin HFA] 90 mcg/actuation HFA aerosol inhaler 1 inh inhalation BID pantoprazole 20 mg Tablet,Delayed Release (Dr/Ec) 20 mg PO DAILY fluticasone propionate 50 mcg/actuation [place],Suspension 1 spray INTRANASAL DAILY Rx Instructions: administer into each nostril glipizide 5 mg Tablet 5 mg PO BID 30 Days Qty: 60 0RF atorvastatin 20 mg PO/SL DAILY lisinopril 10 mg PO/SL DAILY primidone 50 mg PO/SL QHS [facility] [facility] [Primary Care Provider] - 3-5 Days if not improving Activity Restrictions/Additional Instructions: Rest the ankle, elevate it when possible, and ice the area for 10 to 15 minutes 3 times a day for the next few days. Please return for any new or worsening symptoms. Disposition Disposition: Home, Self Care Discharge Date/Time: 10/13/22 13:18
== END 2022-10-13 13:18 | disposition home or self-care (01) ==
LOC: ED 13:05
PROVIDERS: Emergency Provider Emergency Medicine; Visit Provider Emergency Medicine
DX: M79.89 Other specified soft tissue disorders (principal); J44.9 Chronic obstructive pulmonary disease, unspecified; E78.00 Pure hypercholesterolemia, unspecified; I10 Essential (primary) hypertension; K21.9 Gastro-esophageal reflux disease without esophagitis; F41.9 Anxiety disorder, unspecified; F32.A Depression, unspecified; Z79.899 Other long term (current) drug therapy; Z99.81 Dependence on supplemental oxygen; Z87.891 Personal history of nicotine dependence
CPT/HCPCS: 93971; 99282

== ENCOUNTER 2022-10-30 10:37 | Emergency (ER) | payer OTHER, SELFPAY ==
[2022-04-22 08:14] VITALS: BMI 30.6
[2022-10-30 10:38] VITALS: BP 163/92; PULSE 87; RESP 16; TEMP 36; O2SAT 94; BMI 28.4
--- NOTE | 2022-10-30 12:01 | EDS_ITS ---
HPI History of Present Illness Chief Complaint: Wound Informant: patient Onset/Context/Timing Onset: Month(s) (1) Context: Gradual Onset Timing: Continuous Quality of Pain: - (sore) Location: LLE lower leg Current Severity: Mild Maximum Severity: Mild Worsened by: palpation Relieved by: leaving alone Associated Symptoms Associated Symptoms: Negative for Parasthesia, Weakness or Loss of Funtion Narrative Narrative: Patient was seen here at the beginning of the month 3-4 weeks ago for swelling in the left lower extremity, he states he had a Doppler that was negative for clot, he was not put on any new medications. He states he was to follow-up with his PCP, he is still waiting to get in and in the meantime has been putting bag balm and a dressing on his left lower leg rash/wounds that developed since he was in the ED for the Doppler. He states at that time he did not have a rash at all. He states it is getting a little red and sore but it is more itchy than it is sore. In addition, for the last several weeks he has also had an itchy rash on his face, neck/chin, arms, including this left lower extremity. Today he noticed a couple of nonpainful blisters that have come up on the top of his foot which was the reason his brought him in today. He denies any fevers or chills or systemic symptoms. He states the itching is more annoying he does not complain of any severe pain anywhere. The rash on his left lower leg is seeping water but nothing else. [facility] Medical History Acute maxillary sinusitis, unspecified Alcohol use Aneurysm Anxiety Arthritis Benign essential hypertension Bilateral pneumonia Chronic cough COPD (chronic obstructive pulmonary disease) Degenerative joint disease of hand Depression Diabetes Easy bruising Encounter for screening for COVID-19 Excessive bleeding Former smoker Gastric reflux Hepatitis High cholesterol History of echocardiogram History of edema History of steroid therapy History of stress test Hyperlipidemia Hypertension Leg cramps Migraine headache On home oxygen therapy Shortness of breath on exertion Smoking greater than 40 pack years Wears dentures Wears glasses Wears hearing aid Home Medications amlodipine 10 mg tablet 10 mg PO DAILY HTN 12/23/21 [History Last Taken Unknown] melatonin 3 mg tablet 3 mg PO QHS 12/23/21 [History Last Taken Unknown] multivitamin 1 tab PO DAILY 12/23/21 [History Last Taken Unknown] tamsulosin 0.4 mg capsule 0.4 mg PO QHS 12/23/21 [History Last Taken Unknown] simethicone 80 mg tablet 80 mg PO 4X/DAY 01/14/22 [History Last Taken Unknown] tiotropium bromide 2.5 mcg/actuation mist for inhalation (Spiriva Respimat) 2 puff inhalation DAILY 01/14/22 [History Last Taken Unknown] citalopram 10 mg tablet 20 mg PO DAILY MOOD 02/21/22 [History Last Taken Unknown] guaifenesin 200 mg tablet 200 mg PO Q4H PRN Cough 02/21/22 [History Last Taken Unknown] albuterol sulfate 90 mcg/actuation aerosol inhaler (Ventolin HFA) 1 inh inhalation BID 03/24/22 [History Last Taken Unknown] fluticasone propionate 50 mcg/actuation nasal spray,suspension 1 spray intranasal DAILY 04/29/22 [History Last Taken Unknown] pantoprazole 20 mg tablet,delayed release 20 mg PO DAILY GERD 04/29/22 [History Last Taken Unknown] glipizide 5 mg tablet 5 mg PO BID 30 days #60 tabs 05/31/22 [Rx Last Taken Unknown] atorvastatin 20 mg PO/SL DAILY 10/13/22 [History Last Taken Unknown] lisinopril 10 mg PO/SL DAILY 10/13/22 [History Last Taken Unknown] primidone 50 mg PO/SL QHS 10/13/22 [History Last Taken Unknown] cephalexin 500 mg capsule 500 mg PO Q6 #40 [place] 10/30/22 [Rx Last Taken Unknown] prednisone 20 mg tablet 20 mg PO DAILY #5 TABLETS 10/30/22 [Rx Last Taken Unknown] Allergy/AdvReac Type Severity Reaction Status Date / Time gabapentin AdvReac Unknown PT UNSURE Unverified 10/30/22 10:39 OF REACTION rosuvastatin AdvReac Unknown PT UNSURE Unverified 10/30/22 10:39 OF REACTION hydrozyzine AdvReac Unknown PT UNSURE Uncoded 10/30/22 10:39 OF REACTION Family History Father Cancer Heart disease Mother Heart disease Myocardial infarction Surgical History H/O wrist surgery History of cataract surgery History of esophagogastroduodenoscopy (EGD) History of hand surgery Hx of appendectomy Hx of colonoscopy Social History household members: spouse Smoking Status: Former smoker quit date: 09/26/21 pack-years: 90 Tobacco: How many years used: 60 alcohol intake: former substance use type: does not use ROS ROS ED Constitutional Constitutional ED: Denies chills or fever(s) Musculoskeletal Musculoskeletal: Reports extremity pain; Denies neck pain Integumentary Reports pruritus, rash and wounds; Denies Abrasions Neurologic Neurologic: Denies paresthesias or weakness EXAM Physical Exam Const Vital Signs: 10/30/22 10:38 Temperature 96.8 F L Temperature Source Temporal Pulse Rate 87 Respiratory Rate 16 Blood Pressure 163/92 H Blood Pressure Mean 115 Pulse Ox 94 Positive well nourished and well developed General Appearance ED: well developed and NAD Neck full ROM and supple Back/Spine normal ROM and normal to inspection Extremity Extremity Narrative: Edematous left lower extremity mildly, no edema on the right. On the lateral aspect of the left lower leg there is a superficial wound that is in multiple parts, it takes him more than half of the length of the lower leg, it appears to be excoriated, some scabbing, erythema all around it, parts of it are tender but not all of it, there is no abscess or discharge or active bleeding. Patient has clear liquid soaking the sheet below where his left lower leg is sitting. There are nonruptured bullae, about 3 or 4 of them various sizes all grouped together at the dorsum of the left forefoot not including the toes. No tenderness in this area or signs of cellulitis. Neuro oriented x3, no focal motor deficits and no sensory deficits noted Sensorium / Orientation: alert Psych mental status grossly normal and thought process normal Skin Skin Narrative: Left lower leg wound as above and blistering on the foot. More proximally in the left lower extremity he has a couple of nontender. Very small erythematous papules that do not appear to be pustules, they are not petechia. They are not itchy but he states this is how the rest of his rash started. On his forehead, chin, neck, bilateral forearms there is pruritic nontender erythematous patchy papular rash. MDM MDM MDM Narrative Medical decision making narrative: Patient's sleeps with him in the same bed and does not have any of this. I think this is much less likely to be scabies based on that, or a pediculosis of any other type. I think he probably has an inflammatory dermatitis, that may be secondarily getting infected with regards to the area of his left lower leg laterally. The blistering on his foot is likely just due to to the edema in his leg which may or may not be due to either venous insufficiency or cellulitis. I think prednisone would probably help the rash throughout the majority of his body, but the area that is possibly secondarily infected deserves antibiotic so I will put him on cephalexin for that. He is a type II diabetic not insulin- dependent he does have a way to check his blood sugars and knows how to do that, so I am cutting his dose in half giving him 20 mg a day for 5 days, I did give him an initial dose of 30 mg here. He states last time he was on prednisone his blood sugars went up a little but not much so he is comfortable with that plan and following up. I advised to avoid using bag balm and just use Neosporin or something equivalent which we did here. Discharge Plan Triage Chief Complaint: Wound ED Provider: Jet Fletcher Dx/Rx/DC Orders Clinical Impression: Dermatitis, Cellulitis of left leg without foot, Edema of left lower leg, Blister of foot, left Instructions: Cellulitis Dc Prescriptions: New prednisone 20 mg tablet 20 mg PO DAILY Qty: 5 0RF cephalexin [cephalexin] 500 mg capsule 500 mg PO Q6 Qty: 40 0RF No Action multivitamin Tablet 1 tab PO DAILY melatonin 3 mg Tablet 3 mg PO QHS tamsulosin 0.4 mg Capsule 0.4 mg PO QHS amlodipine 10 mg Tablet 10 mg PO DAILY simethicone 80 mg Tablet 80 mg PO 4X/DAY Spiriva Respimat 2.5 mcg/actuation Mist 2 puff INHALATION DAILY citalopram 10 mg Tablet 20 mg PO DAILY guaifenesin 200 mg Tablet 200 mg PO Q4H PRN (Reason: Cough) albuterol sulfate [Ventolin HFA] 90 mcg/actuation HFA aerosol inhaler 1 inh inhalation BID pantoprazole 20 mg Tablet,Delayed Release (Dr/Ec) 20 mg PO DAILY fluticasone propionate 50 mcg/actuation [place],Suspension 1 spray INTRANASAL DAILY Rx Instructions: administer into each nostril glipizide 5 mg Tablet 5 mg PO BID 30 Days Qty: 60 0RF atorvastatin 20 mg PO/SL DAILY lisinopril 10 mg PO/SL DAILY primidone 50 mg PO/SL QHS [facility] [facility] [Primary Care Provider] - As soon as possible Activity Restrictions/Additional Instructions: No more bag balm to your leg, you may use Neosporin, bacitracin or other generic antibiotic ointment along with gauze/wrapping to be changed daily at least. Take the prescriptions as prescribed, do not start the prednisone until tomorrow 10/31 since you had the first dose today. Disposition Disposition: Home, Self Care
[2022-10-30] MEDS: Cephalexin 250 MG Capsule 500 MG PO (12:33)
[2022-10-30] MEDS: predniSONE 10 MG Tablet 30 MG PO (12:33)
== END 2022-10-30 12:59 | disposition home or self-care (01) ==
PROVIDERS: Emergency Provider Emergency Medicine; Visit Provider Emergency Medicine
DX: L30.9 Dermatitis, unspecified (principal); L03.116 Cellulitis of left lower limb; R60.0 Localized edema; S90.822A Blister (nonthermal), left foot, initial encounter; Z87.891 Personal history of nicotine dependence; Z99.81 Dependence on supplemental oxygen; X58.XXXA Exposure to other specified factors, initial encounter
CPT/HCPCS: 99283

== ENCOUNTER 2022-11-05 09:54 | Emergency (ER) | payer OTHER, SELFPAY ==
[2022-04-22 08:14] VITALS: BMI 30.6
[2022-11-05 09:56] VITALS: BP 137/85; PULSE 87; RESP 17; TEMP 36.6; O2SAT 95; BMI 32.1
--- NOTE | 2022-11-05 10:17 | EX.ED.DYSGE1 ---
HPI History of Present Illness Chief Complaint: Rash Informant: patient Onset/Context/Timing Onset: Weeks (5-6) Context: Gradual Onset Timing: Continuous Quality: pruritic, sore Location: all over; started on LLE Current Severity: Moderate Maximum Severity: Moderate Worsened by: palpation Relieved by: nothing, just finished prednisone x 5d Associated Symptoms Associated Symptoms: seeping from blisters mostly LLE; no fevers/chills/systemic sx Narrative Narrative: Patient was seen here by myself almost 1 week ago for the same thing. Rash is worsening despite finishing prednisone for 5 days that we tried, he denies any new symptoms but the rash has been getting worse in multiple areas of his body including the abdomen, the left lower leg where it started, same amount of swelling there, also worsening on his forehead, face, right external ear. He has not seen anybody else since being here about a week ago. He states now it is more sore, last time it was more itchy, but it is still both. [facility] Medical History Acute maxillary sinusitis, unspecified Alcohol use Aneurysm Anxiety Arthritis Benign essential hypertension Bilateral pneumonia Chronic cough COPD (chronic obstructive pulmonary disease) Degenerative joint disease of hand Depression Diabetes Easy bruising Encounter for screening for COVID-19 Excessive bleeding Former smoker Gastric reflux Hepatitis High cholesterol History of echocardiogram History of edema History of steroid therapy History of stress test Hyperlipidemia Hypertension Leg cramps Migraine headache On home oxygen therapy Shortness of breath on exertion Smoking greater than 40 pack years Wears dentures Wears glasses Wears hearing aid Home Medications amlodipine 10 mg tablet 10 mg PO DAILY HTN 12/23/21 [History Last Taken Unknown] melatonin 3 mg tablet 3 mg PO QHS 12/23/21 [History Last Taken Unknown] multivitamin 1 tab PO DAILY 12/23/21 [History Last Taken Unknown] tamsulosin 0.4 mg capsule 0.4 mg PO QHS 12/23/21 [History Last Taken Unknown] simethicone 80 mg tablet 80 mg PO 4X/DAY 01/14/22 [History Last Taken Unknown] tiotropium bromide 2.5 mcg/actuation mist for inhalation (Spiriva Respimat) 2 puff inhalation DAILY 01/14/22 [History Last Taken Unknown] citalopram 10 mg tablet 20 mg PO DAILY MOOD 02/21/22 [History Last Taken Unknown] guaifenesin 200 mg tablet 200 mg PO Q4H PRN Cough 02/21/22 [History Last Taken Unknown] albuterol sulfate 90 mcg/actuation aerosol inhaler (Ventolin HFA) 1 inh inhalation BID 03/24/22 [History Last Taken Unknown] fluticasone propionate 50 mcg/actuation nasal spray,suspension 1 spray intranasal DAILY 04/29/22 [History Last Taken Unknown] pantoprazole 20 mg tablet,delayed release 20 mg PO DAILY GERD 04/29/22 [History Last Taken Unknown] glipizide 5 mg tablet 5 mg PO BID 30 days #60 tabs 05/31/22 [Rx Last Taken Unknown] atorvastatin 20 mg PO/SL DAILY 10/13/22 [History Last Taken Unknown] lisinopril 10 mg PO/SL DAILY 10/13/22 [History Last Taken Unknown] primidone 50 mg PO/SL QHS 10/13/22 [History Last Taken Unknown] cephalexin 500 mg capsule 500 mg PO Q6 #40 CAPSULES 10/30/22 [Rx Last Taken Unknown] prednisone 20 mg tablet 20 mg PO DAILY #5 TABLETS 10/30/22 [Rx Last Taken Unknown] amoxicillin 875 mg-potassium clavulanate 125 mg tablet 875 mg PO Q12H #28 TABLETS 11/05/22 [Rx Last Taken Unknown] mupirocin 2 % topical ointment 1 applic topical BID #22 grams 11/05/22 [Rx Last Taken Unknown] Allergy/AdvReac Type Severity Reaction Status Date / Time gabapentin AdvReac Unknown PT UNSURE Verified 11/05/22 10:42 OF REACTION rosuvastatin AdvReac Unknown PT UNSURE Verified 11/05/22 10:42 OF REACTION hydrozyzine AdvReac Unknown PT UNSURE Uncoded 11/05/22 09:55 OF REACTION Family History Father Cancer Heart disease Mother Heart disease Myocardial infarction Surgical History H/O wrist surgery History of cataract surgery History of esophagogastroduodenoscopy (EGD) History of hand surgery Hx of appendectomy Hx of colonoscopy Social History household members: spouse Smoking Status: Former smoker quit date: 09/26/21 pack-years: 90 Tobacco: How many years used: 60 alcohol intake: former substance use type: does not use ROS ROS ED Constitutional Constitutional ED: Denies chills or fever(s) Eyes Eyes: Denies change in vision or diplopia ENT ENT ED: Reports ear pain right (External); Denies rhinorrhea or sore throat Cardiovascular Cardiovascular: Denies chest pain or palpitations Respiratory/Chest Respiratory/Chest: Reports other Details: Chronic cough unchanged ; Denies dyspnea Gastrointestinal Gastrointestinal: Denies abdominal pain, diarrhea, nausea or vomiting Genitourinary Genitourinary ED: Denies dysuria or hematuria Musculoskeletal Musculoskeletal: Denies back pain or neck pain Integumentary Reports as per HPI, rash, skin pain and wounds; Denies abscess Neurologic Neurologic: Denies headache(s), paresthesias or weakness Psychiatric Psychiatric: Denies anxiety or suicidal thoughts EXAM Physical Exam Const Vital Signs: 11/05/22 09:56 Temperature 97.8 F Temperature Source Temporal Pulse Rate 87 Respiratory Rate 17 Blood Pressure 137/85 H Blood Pressure Mean 102 Pulse Ox 95 Oxygen Delivery Method Nasal Cannula Oxygen Flow Rate (L/min) 3 Positive well nourished and well developed General Appearance ED: well developed and NAD HEENT Reports moist mucous membranes HEENT Narrative: Erythematous mildly tender slightly raised rash in patches that are not well-circumscribed, some crusty yellow lesions on the right ear as well as the face and some parts. No abscesses. normocephalic and atraumatic Eyes PERRL and EOMs intact bilaterally Neck full ROM and supple Resp normal respiratory effort Back/Spine no CVA tenderness General Back: other FROM Extremity Extremity Narrative: Scattered erythematous sometimes maculopapular lesions and rash, confluent throughout the left lower leg and down to the foot, worse than prior evaluation. Some unroofed blistering with clear liquid seeping from that, some new relatively large blister formation lateral left ankle and lower leg, not in flexural areas necessarily. No other areas of blister formation. Rash is more benign appearing and erythematous patches on the arms. The left lower extremity/lower leg looks more densely erythematous and is tender with no subcutaneous emphysema, he has full range of motion of all joints of that leg without any discomfort, no necrotic tissue. General Extremety ED: Negative for pulses abnormal General Extremity: Negative for pulses abnormal Neuro oriented x3, CN's II-XII intact bilaterally and no sensory deficits noted Sensorium / Orientation: awake and alert Motor Exam: strength 5/5 throughout Psych mental status grossly normal Skin Skin Narrative: Diffuse patchy rash see above. Maculopapular on the abdomen and scattered, more mild. No petechiae. MDM MDM MDM Narrative Medical decision making narrative: Now this rash is appearing more likely to be bullous impetigo in my opinion. This patient has never been diagnosed with bullous pemphigoid, he does not have blisters on his abdomen, he has no mucous membrane involvement, and there is some yellow crusting on some parts so I suspect he is probably dealing with bullous impetigo. I did obtain some basic labs and while doing that, empirically treated him with Zosyn and vancomycin. His labs look good. He does not have an anion gap acidosis to suggest a lactic acidosis or sepsis from this. His vital signs are normal and clinically he is doing well even though the rash is diffuse. He is not interested in pain or requiring IV analgesics. Given all this, I think he can be discharged home. He is comfortable with that. We will prescribe him Augmentin for 2 weeks and advised close outpatient follow-up, along with mupirocin applied twice daily to affected open areas. Discussed the risk of diarrhea and probiotic/yogurt use. Lab Data Attestation: I reviewed the patient's lab results. Labs: Laboratory Results - last 24 hr 11/05/22 11/05/22 10:25 10:25 WBC 9.4 RBC 4.86 Hgb 16.3 Hct 47.0 MCV 96.7 H MCH 33.5 H MCHC 34.7 RDW Std Deviation 48.4 H RDW Coeff of Tarik 13.5 Plt Count 350 MPV 9.5 Immature Gran % (Auto) 0.600 Neut % (Auto) 60.5 Lymph % (Auto) 18.2 L [place] % (Auto) 8.4 Eos % (Auto) 11.8 H Baso % (Auto) 0.5 Absolute Neuts (auto) 5.7 Absolute Lymphs (auto) 1.71 Nucleated RBC % 0 Sodium 138 Potassium 4.2 Chloride 103 Carbon Dioxide 25.0 Anion Gap 10 BUN 14 Creatinine 1.08 Estim Creat Clear Calc 64.88 Est GFR (MDRD) Af Amer 86 Est GFR (MDRD) Non-Af 71 BUN/Creatinine Ratio 13.0 Glucose 224 H Calcium 9.2 Discharge Plan Triage Chief Complaint: Rash ED Provider: Jet Fletcher Dx/Rx/DC Orders Clinical Impression: Bullous impetigo Instructions: Staph Infection (Non-MRSA) Prescriptions: New amoxicillin-pot clavulanate [amoxicillin-pot clavulanate] 875-125 mg tablet 875 mg PO Q12H Qty: 28 0RF mupirocin 2 % ointment 1 applic topical BID Qty: 22 0RF Rx Instructions: to affected open areas No Action multivitamin Tablet 1 tab PO DAILY melatonin 3 mg Tablet 3 mg PO QHS tamsulosin 0.4 mg Capsule 0.4 mg PO QHS amlodipine 10 mg Tablet 10 mg PO DAILY simethicone 80 mg Tablet 80 mg PO 4X/DAY Spiriva Respimat 2.5 mcg/actuation Mist 2 puff INHALATION DAILY citalopram 10 mg Tablet 20 mg PO DAILY guaifenesin 200 mg Tablet 200 mg PO Q4H PRN (Reason: Cough) albuterol sulfate [Ventolin HFA] 90 mcg/actuation HFA aerosol inhaler 1 inh inhalation BID pantoprazole 20 mg Tablet,Delayed Release (Dr/Ec) 20 mg PO DAILY fluticasone propionate 50 mcg/actuation [place],Suspension 1 spray INTRANASAL DAILY Rx Instructions: administer into each nostril glipizide 5 mg Tablet 5 mg PO BID 30 Days Qty: 60 0RF atorvastatin 20 mg PO/SL DAILY lisinopril 10 mg PO/SL DAILY primidone 50 mg PO/SL QHS prednisone 20 mg tablet 20 mg PO DAILY Qty: 5 0RF cephalexin [cephalexin] 500 mg capsule 500 mg PO Q6 Qty: 40 0RF [facility] Care Provider: [facility] Referrals: Murray Sky MD [Med Staff - [employer] Extension Educator] - As soon as possible [facility] the next 2 weeks) [facility] [Primary Care Provider] - Disposition Disposition: Home, Self Care
[2022-11-05 10:34] LABS: Absolute Lymphocyte Count 1.71 X10^3/uL (0.83-4.51); Absolute Neutrophil Count 5.7 X10^3/uL (2.0-7.7); Basophil# 0.05 X10^3/uL; Basophil% 0.5 % (0-1); Eosinophil# 1.11 X10^3/uL; Eosinophils% 11.8 % (0-5); Hemoglobin 16.3 g/dL (13.0-16.5); Lymphocyte # 1.71 X10^3/ul (0.83-4.51); Lymphocyte % 18.2 % (19-41); Mean Corp Hgb Conc 34.7 g/dL (32-36); Mean Corpuscular Hgb 33.5 pg (27.0-32.0); Mean Corpuscular Volume 96.7 fL (80-94); Mean Platelet Vol. 9.5 fl (6.2-12.0); Monocyte# 0.79 X10^3/uL; Monocyte% 8.4 % (0-10); NRBC Flagged by Analyzer 0 % (0-5); Neutrophil # 5.69 X10^3/uL (2.7-7.7); Neutrophil % 60.5 % (47-70); Platelet Count 350 K/mm3 (150-450); RBC Distribution Width CV 13.5 % (11.6-14.6); RBC Distribution Width SD 48.4 fl (35.1-43.9); Red Blood Count 4.86 M/mm3 (4.6-6.2); White Blood Count 9.4 K/mm3 (4.4-11.0)
[2022-11-05 10:48] LABS: Anion Gap 10 (5-15); BUN 14 mg/dL (7-18); Calcium,Total 9.2 mg/dL (8.5-10.1); Chloride 103 mmol/L (98-107); Creatinine, Serum 1.08 mg/dL (0.70-1.30); EST Glomerular Filtration Rate 71 mL/min (>60); Est Glom Filt Rate - Afr Amer 86 mL/min (>60); Estimated Creatinine Clearance 64.88 ml/min; Glucose 224 mg/dL (74-106); Potassium 4.2 mmol/L (3.5-5.1); Sodium Level 138 mmol/L (136-145)
[2022-11-05 15:00] VITALS: PULSE 84; RESP 17; O2SAT 95
== END 2022-11-05 15:02 | disposition home or self-care (01) ==
PROVIDERS: Emergency Provider Emergency Medicine; Visit Provider Emergency Medicine
DX: L01.03 Bullous impetigo (principal); J44.9 Chronic obstructive pulmonary disease, unspecified; Z87.891 Personal history of nicotine dependence; Z99.81 Dependence on supplemental oxygen
CPT/HCPCS: 80048; 85025; 96365; 96366; 96367; 99283; J7040; A4216

== ENCOUNTER 2023-07-01 07:27 | Day surgery (SDC) | payer OTHER, SELFPAY ==
[2022-04-22 08:14] VITALS: BMI 30.6
--- NOTE | 2023-06-15 06:53 | EKG12_ITS ---
Test Reason : PRE OP Blood Pressure : / mmHG Vent. Rate : 067 BPM Atrial Rate : 067 BPM P-R Int : 160 ms QRS Dur : 080 ms QT Int : 438 ms P-R-T Axes : 008 010 058 degrees QTc Int : 462 ms Sinus rhythm with Premature atrial complexes ST abnormality, possible digitalis effect Abnormal ECG Confirmed by AZALEA PRATHER, MICHEAL ([id number]), avid editor TERA CAMPBELL ([id number]) on 06/16/2023 9:34:04 AM Referred By: Mikael Singletary Confirmed By:MICHEAL TRISTAN MD
[2023-06-15 07:33] LABS: Hemoglobin 14.8 g/dL (13.0-16.5); Mean Corp Hgb Conc 35.2 g/dL (32-36); Mean Corpuscular Volume 93.8 fL (80-94); Mean Platelet Vol. 9.8 fl (6.2-12.0); Platelet Count 298 K/mm3 (150-450); RBC Distribution Width CV 13.7 % (11.6-14.6); RBC Distribution Width SD 46.8 fl (35.1-43.9); Red Blood Count 4.48 M/mm3 (4.6-6.2); White Blood Count 7.5 K/mm3 (4.4-11.0)
[2023-06-15 08:11] LABS: Anion Gap 6 (5-15); BUN 12 mg/dL (7-18); BUN/Creat Ratio 12.2 RATIO (10-20); Chloride 100 mmol/L (98-107); Creatinine, Serum 0.98 mg/dL (0.70-1.30); EST Glomerular Filtration Rate 79 mL/min (>60); Est Glom Filt Rate - Afr Amer 96 mL/min (>60); Glucose 186 mg/dL (74-106); Sodium Level 137 mmol/L (136-145)
[2023-07-01 07:50] VITALS: BP 142/88; PULSE 72; RESP 18; TEMP 36.4; O2SAT 95; BMI 28.9
[2023-07-01] MEDS: Lactated Ringers 1,000 ML 15 ML IV (08:04)
[2023-07-01 08:27] LABS: Bedside Glucose 190 mg/dL (74-106)
--- NOTE | 2023-07-01 09:09 | HP.PCM_ITS ---
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: No Is patient in pain?: No Allergies gabapentin Adverse Reaction (Unknown, Verified 06/10/23 13:35) PT UNSURE OF REACTIONrosuvastatin Adverse Reaction (Unknown, Verified 06/10/23 13:35) PT UNSURE OF REACTIONhydroxyzine Adverse Reaction (Verified 06/10/23 13:35) NEEDS FOLLOW-UP Medications amlodipine 10 mg tablet 10 mg PO DAILY HTN 12/23/21 [History Confirmed 06/10/23] melatonin 3 mg tablet 3 mg PO QHS 12/23/21 [History Confirmed 06/10/23] multivitamin 1 tab PO DAILY 12/23/21 [History Confirmed 06/10/23] tamsulosin 0.4 mg capsule 0.4 mg PO QHS 12/23/21 [History Confirmed 06/10/23] tiotropium bromide 2.5 mcg/actuation mist for inhalation (Spiriva Respimat) 2 puff inhalation DAILY 01/14/22 [History Confirmed 06/10/23] citalopram 10 mg tablet 20 mg PO DAILY MOOD 02/21/22 [History Confirmed 06/10/23] guaifenesin 200 mg tablet 200 mg PO Q4H PRN Cough 02/21/22 [History Confirmed 06/10/23] albuterol sulfate 90 mcg/actuation aerosol inhaler (Ventolin HFA) 1 inh inhalation BID 03/24/22 [History Confirmed 06/10/23] fluticasone propionate 50 mcg/actuation nasal spray,suspension 1 spray intranasal DAILY 04/29/22 [History Confirmed 06/10/23] pantoprazole 20 mg tablet,delayed release 20 mg PO DAILY GERD 04/29/22 [History Confirmed 06/10/23] atorvastatin 20 mg PO/SL DAILY 10/13/22 [History Confirmed 06/10/23] lisinopril 10 mg PO/SL DAILY 10/13/22 [History Confirmed 06/10/23] mupirocin 2 % topical ointment 1 applic topical BID #22 grams 11/05/22 [Rx Confirmed 06/10/23] chlorthalidone 25 mg tablet 25 mg PO DAILY 04/29/23 [History Confirmed 06/10/23] glipizide 10 mg tablet 10 mg PO DAILY 04/29/23 [History Confirmed 06/10/23] PFSH Medical History Acute maxillary sinusitis, unspecified Alcohol use Aneurysm Anxiety Arthritis Benign essential hypertension Bilateral pneumonia Chronic cough COPD (chronic obstructive pulmonary disease) Degenerative joint disease of hand Depression Diabetes Easy bruising Encounter for screening for COVID-19 Excessive bleeding Former smoker Gastric reflux Hepatitis High cholesterol History of echocardiogram History of edema History of steroid therapy History of stress test Hyperlipidemia Hypertension Leg cramps Migraine headache On home oxygen therapy Shortness of breath on exertion Smoking greater than 40 pack years Wears dentures Wears glasses Wears hearing aid Surgical History H/O wrist surgery History of cataract surgery History of esophagogastroduodenoscopy (EGD) History of hand surgery Hx of appendectomy Hx of colonoscopy Family History Father Cancer Heart diseaseMother Heart disease Myocardial infarction Social History household members: spouse Smoking Status: Former smoker quit date: 09/26/21 pack-years: 90 Tobacco: How many years used: 60 alcohol intake: former substance use type: does not use HPI HPI HPI: 72-year-old gentleman. I saw him in the office on April 29, 2023. This was for a cyst and a lipoma of his back. On May 11, 2023 in the office I excised a 2.5 cm diameter sebaceous cyst from his upper mid back. He has a large 12 x 8 cm subcutaneous mass left mid lower back which clinically is suspected to be a lipoma. I did not feel that this could be excised in an office setting. He returns to discuss this lesion. My previous notes reflect the following Visit Reasons: CYST ON BACK AND FATTY TISSUE ON NECK Chief Complaint: cyst on back and fatty tissue on neck Is patient in pain?: No Allergies gabapentin Adverse Reaction (Unknown, Verified 04/29/23 09:21) PT UNSURE OF REACTIONrosuvastatin Adverse Reaction (Unknown, Verified 04/29/23 09:21) PT UNSURE OF REACTIONhydroxyzine Adverse Reaction (Verified 04/29/23 09:21) NEEDS FOLLOW-UP Medications amlodipine 10 mg tablet 10 mg PO DAILY HTN 12/23/21 [History Confirmed 04/29/23] melatonin 3 mg tablet 3 mg PO QHS 12/23/21 [History Confirmed 04/29/23] multivitamin 1 tab PO DAILY 12/23/21 [History Confirmed 04/29/23] tamsulosin 0.4 mg capsule 0.4 mg PO QHS 12/23/21 [History Confirmed 04/29/23] tiotropium bromide 2.5 mcg/actuation mist for inhalation (Spiriva Respimat) 2 puff inhalation DAILY 01/14/22 [History Confirmed 04/29/23] citalopram 10 mg tablet 20 mg PO DAILY MOOD 02/21/22 [History Confirmed 04/29/23] guaifenesin 200 mg tablet 200 mg PO Q4H PRN Cough 02/21/22 [History Confirmed 04/29/23] albuterol sulfate 90 mcg/actuation aerosol inhaler (Ventolin HFA) 1 inh inhalation BID 03/24/22 [History Confirmed 04/29/23] fluticasone propionate 50 mcg/actuation nasal spray,suspension 1 spray intranasal DAILY 04/29/22 [History Confirmed 04/29/23] pantoprazole 20 mg tablet,delayed release 20 mg PO DAILY GERD 04/29/22 [History Confirmed 04/29/23] atorvastatin 20 mg PO/SL DAILY 10/13/22 [History Confirmed 04/29/23] lisinopril 10 mg PO/SL DAILY 10/13/22 [History Confirmed 04/29/23] mupirocin 2 % topical ointment 1 applic topical BID #22 grams 11/05/22 [Rx Confirmed 04/29/23] chlorthalidone 25 mg tablet 25 mg PO DAILY 04/29/23 [History Confirmed 04/29/23] glipizide 10 mg tablet 10 mg PO DAILY 04/29/23 [History Confirmed 04/29/23] [facility] Medical History Acute maxillary sinusitis, unspecified Alcohol use Aneurysm Anxiety Arthritis Benign essential hypertension Bilateral pneumonia Chronic cough COPD (chronic obstructive pulmonary disease) Degenerative joint disease of hand Depression Diabetes Easy bruising Encounter for screening for COVID-19 Excessive bleeding Former smoker Gastric reflux Hepatitis High cholesterol History of echocardiogram History of edema History of steroid therapy History of stress test Hyperlipidemia Hypertension Leg cramps Migraine headache On home oxygen therapy Shortness of breath on exertion Smoking greater than 40 pack years Wears dentures Wears glasses Wears hearing aid Surgical History H/O wrist surgery History of cataract surgery History of esophagogastroduodenoscopy (EGD) History of hand surgery Hx of appendectomy Hx of colonoscopy Family History Father Cancer Heart diseaseMother Heart disease Myocardial infarction Social History household members: spouse Smoking Status: Former smoker quit date: 09/26/21 pack-years: 90 Tobacco: How many years used: 60 alcohol intake: former substance use type: does not use HPI HPI HPI: 72-year-old gentleman referred by the [facility] for surgical consultation regarding a cystic lesion on his back and a fatty soft tissue mass on his back. A written copy of my surgical consult recommendations will be returned to the [facility]. The patient is complaining that the upper back cystic lesion is intermittently tender. He has had no drainage. He has never had that incised and drained. The patient is complaining of tenderness of the fibrofatty mass in the left mid lateral back particularly inhibiting him being able to sleep on his left side. He feels that the left mid back lesion has been progressively enlarging. ROS General General: No weight change, appetite, fatigue, colon cancer, breast cancer or weakness HEENT HEENT: No difficulty swallowing, eye injury, eye surgery, swollen glands or hoarseness Endo Endocrine: Yes diabetes mellitus; No thyroid disease, thyroid cancer, Hair loss, heat intolerance or cold intolerance Skin Skin: No rash or changing moles Musc Musculoskeletal: Yes arthritis and rheumatoid arthritis; No back problems, gout or joint pain Cardio Cardiovascular: Yes high blood pressure; No murmur, pacemaker, heart disease, atrial fibrillation, heart attack, heart stent, palpitations, shortness of breat with exertion or chest pain Psych Psychiatric: No depression, anxiety or hearing voices Resp Respiratory: Yes shortness of breath, No sleep apnea, No cough, Yes COPD, No asthma, No emphysema and No wheezing Gastro Gastrointestinal: No abdominal pain, No nausea or vomiting, No diarrhea, No constipation, No blood in stool, No acid reflux, No hemorrhoids, No ulcers, No gallbladder problem and No black,tarry stools Chevy Hematologic: No blood thinners, No blood disorders, No bleeding, No anemia and No blood clots Neuro Neurologic: No system reviewed and no additional complaints, except as documented, No as per HPI, No abnormal gait, No abnormal hearing, No abnormal movements, No abnormal speech, No behavioral changes, No burning sensations, No confusion, No convulsions, No disequilibrium, No dizziness, No localized weakness, No frequent falls, No headache(s), No lack of coordination, No loss of vision, No memory loss, No numbness, No other visual disturbances, No radicular pain, No restless legs, No sensory deficit, No syncope, No tingling, No tremor(s), No weakness and No other Exam Const General: cooperative, comfortable and no acute distress HENMT Head: normal to inspection Chest Other: Upper mid back at the shoulder level there is a sebaceous cyst measuring 2.5 cm in diameter. No drainage. Very slightly tender but no erythema. Left mid lateral back nondescript fibrofatty mass measuring 12 x 8 cm deep fixation. Resp Effort & Inspection: normal respiratory effort Auscultation: clear to auscultation bilaterally Cardio Rate: regular rate Rhythm: regular rhythm GI Palpation: soft and no hepatosplenomegaly Extrem General: no calf tenderness Psych Appearance: grossly normal Assessment and Plan Assessment and Plan (1) Sebaceous cyst: Status: Acute (2) Lipoma of back: Status: Acute Plan: Patient appears to have a sebaceous cyst upper back at the shoulder area. He is complaining of tenderness to touch. Potential for low-grade infection. I propose for him an office elliptical excision under local anesthesia and we have discussed the technique, benefit, risk, alternatives. Pending his progress then with that procedure we can then discuss whether excision of the left mid lower back lesion would warrant excision. That appears to be a 12 x 8 cm subcutaneous lipoma with deep fixation. I do not believe that I can easily excise that in an office setting meaning that would require at least a trip to the operating room for monitored anesthesia care and excision. I have cautioned about potential ri sk for seroma formation or recurrence. We will not schedule for that procedure yet until we see how he does with the excision of the sebaceous cyst. He has had an opportunity to ask and have questions answered. I appreciate the opportunity of assisting with the surgical care. We will schedule and proceed as noted. ROS General General: No weight change, appetite, fatigue, colon cancer, breast cancer or weakness HEENT HEENT: No difficulty swallowing, eye injury, eye surgery, swollen glands or hoarseness Endo Endocrine: Yes diabetes mellitus; No thyroid disease, thyroid cancer, Hair loss, heat intolerance or cold intolerance Skin Skin: No rash or changing moles Musc Musculoskeletal: Yes arthritis and rheumatoid arthritis; No back problems, gout or joint pain Cardio Cardiovascular: Yes high blood pressure; No murmur, pacemaker, heart disease, atrial fibrillation, heart attack, heart stent, palpitations, shortness of breat with exertion or chest pain Psych Psychiatric: No depression, anxiety or hearing voices Resp Respiratory: Yes shortness of breath, No sleep apnea, No cough, Yes COPD, No asthma, No emphysema and No wheezing Gastro Gastrointestinal: No abdominal pain, No nausea or vomiting, No diarrhea, No constipation, No blood in stool, No acid reflux, No hemorrhoids, No ulcers, No gallbladder problem and No black,tarry stools Chevy Hematologic: No blood thinners, No blood disorders, No bleeding, No anemia and No blood clots Neuro Neurologic: No system reviewed and no additional complaints, except as documented, No as per HPI, No abnormal gait, No abnormal hearing, No abnormal movements, No abnormal speech, No behavioral changes, No burning sensations, No confusion, No convulsions, No disequilibrium, No dizziness, No localized weakness, No frequent falls, No headache(s), No lack of coordination, No loss of vision, No memory loss, No numbness, No other visual disturbances, No radicular pain, No restless legs, No sensory deficit, No syncope, No tingling, No tremor(s), No weakness and No other Assessment and Plan Assessment and Plan (1) Lipoma of back: Status: Acute Plan: The patient is requesting excision of his left mid lateral back subcutaneous mass clinically consistent with a lipoma. I have discussed the technique, benefit, risk, alternatives with him. I am hopeful that I can accomplish this in the operating room under monitored anesthesia care with local anesthetic. He is aware that I may need to place a drain. He has had the opportunity to ask and have questions answered. We will have him hold his aspirin. We will schedule procedure at his discretion. I appreciate the ongoing opportunity of assisting with the surgical care. Copy: [facility] Mikael Singletary M.D., F.Al.C.S I have examined the patient and the H&P has been reviewed. There are no clinical changes since date of exam. Mikael Singletary M.D., [place].Al.C.S.
--- NOTE | 2023-07-01 09:10 | DCINST_ITS ---
Discharge Instructions Procedure General Surgery Diet Discharge Diet: Light diet - advance as tolerated (if you have questions about your diet instructions, please talk to you doctor.) Activity Discharge Activity: May Not Drive (for 3-5 days or while taking narcotic pain medicine.) May shower in (days): 1 Lifting Restrictions: 10 pounds Dressing / Incision Call your doctor if your incision/area has: Continuous Slow Oozing, Sudden Increased Bleeding, Increased Pain/ Swelling, Increased Redness and Foul Smelling Discharge Call your doctor if you observe: Fever of 101 or Higher Suture Line Care: Avoid Pulling/Pushing and Avoid Pinching/Bending Additional Dressing/Incision Instructions:: You may change her dressing daily. Use a Q-tip and peroxide to cleanse around the drain site. Reapply dry gauze and tape. Empty measure and record the drain output. Call my office on Thursday morning early with a report of that amount of drainage. Plan for follow-up in the office either Thursday or Thursday depending upon the drain amount Do not shower or tub bathe until further instructions and after the drain is out Follow Up Care Please Follow Up With: Mikael Singletary MD When: Call [phone] to make an appointment to be seen as discussed above. Test Results: Test results from this visit will be discussed in further detail at your follow- up appointment, if applicable. Discharge Plan Admission Primary Reason for Your Visit: Left mid back lipoma Attending Provider: Mikael Singletary Primary Care Provider: [facility],[place] Discharge Orders/Prescriptions Prescriptions: Continued glipizide 10 mg tablet 10 mg PO DAILY chlorthalidone 25 mg tablet 25 mg PO DAILY multivitamin Tablet 1 tab PO DAILY melatonin 3 mg Tablet 3 mg PO QHS tamsulosin 0.4 mg Capsule 0.4 mg PO QHS amlodipine 10 mg Tablet 10 mg PO DAILY Spiriva Respimat 2.5 mcg/actuation Mist 2 puff INHALATION DAILY citalopram 10 mg Tablet 20 mg PO DAILY guaifenesin 200 mg Tablet 200 mg PO Q4H PRN (Reason: Cough) albuterol sulfate [Ventolin HFA] 90 mcg/actuation HFA aerosol inhaler 1 inh inhalation BID pantoprazole 20 mg Tablet,Delayed Release (Dr/Ec) 20 mg PO DAILY fluticasone propionate 50 mcg/actuation Bushnell,Suspension 1 spray INTRANASAL DAILY Rx Instructions: administer into each nostril atorvastatin 40 mg PO/SL DAILY lisinopril 10 mg PO/SL DAILY mupirocin 2 % ointment 1 applic topical BID Qty: 22 0RF Rx Instructions: to affected open areas potassium chloride 20 mEq tablet,ER particles/crystals 20 meq PO BID Qty: 6 0RF Referrals / [facility] [[facility] - Disposition Disposition (needs filled in before D/C Order can be placed): Home, Self Care
--- NOTE | 2023-07-01 09:45 | CYST_PTH ---
PATIENT: NAUN GARCÍA LOC: [facility] – [place] U#:[id number] AGE/SX: 72/M ROOM: RE07/01/[address]: Dr. Mikael Singletary MD : 1950 BED: DIS: 07/01/2023 SPEC #: [id number] RECD: 07/01/23 13:43 STATUS: DIANA SUKHWINDER #: [id number] LILY: 07/01/23 09:[address]: Mikael Singletary DEPT: SURGICAL PATHOLOGY RECD BY: Inez Wooten ENTERED: 07/02/23 10:27 SP TYPE: Cyst OTHR DR: [facility] Tissues: CYST Procedures: Surgery Specimen Level III HEADER OPERATION: Excision back lipoma PRE-OP DIAGNOSIS: Sebaceous cyst, lipoma back TISSUE SUBMITTED: Left mid back subcutaneous and subfascial mass MICROSCOPIC DIAGNOSIS Left mid back subcutaneous and subfascial mass, excision: Mature adipose tissue consistent with lipoma. SJ: 07/03/2023 MICROSCOPIC DESCRIPTION Slides are reviewed. GROSS DESCRIPTION Received in fixative is one container labeled with the patient name and designated lipoma. The specimen consists of a lobulated piece of adipose tissue measuring 11 x 8.5 x 3.5 cm. Also present in the container are multiple detached pieces of adipose tissue measuring in aggregate 7 x 6 x 2 cm. Sections reveal yellow adipose cut surfaces without areas of hemorrhage, necrosis or cystic degeneration. Occupational Therapy Technician sections are submitted in 6 cassettes. / SJ:basilio 07/02/23 TC:1 CPT: 26871
[2023-07-01] MEDS: Cefazolin 2 GM in 0.9% Normal Saline 100 ML IV (09:48)
[2023-07-01] MEDS: Lidocaine 1% (20 ml mdv) 20 ML Vial (10:03)
[2023-07-01] MEDS: Bupivacaine 0.25% 30 ML Vial (10:03)
--- NOTE | 2023-07-01 11:11 | OP.PCM_ITS ---
Report of Operation Date of Procedure: 07/01/23 Pre-Operative Diagnosis: Left mid back lipoma Post-Operative Diagnosis: Left mid back subcutaneous and partially subfascial lipoma Surgery/Procedure Performed:: Excision left mid back subcutaneous and partially subfascial lipoma Description of Surgical Findings:: Timeout and informed consent was obtained. The patient was taken to the operating room placed prone on the table underwent monitored anesthesia care. 2 g of Ancef were given intravenously. 1% lidocaine mixed 50-50 with 0.25% Marcaine was used as a local anesthetic. 70 cc was used. Local was instilled. A transverse incision was made over the mass. Tedious electrocautery and sharp dissection was used to completely excise the lesion. Superiorly and laterally seem to extend subfascially and a use cautery to extend partially subfascially to excise what I could definitively say was part of the lipoma. Lipoma did not have a distinct capsule so identifying the circumference and the edge of the lipomas quite difficult. Having removed the main bulk I then excised 2 additional areas inferiorly and medially. At the completion by visualization and palpation I felt that had the entire lipoma though again as it had no di stinct edges this was difficult. The mass bulk measured 12 x 9 x 3 cm. Hemostasis obtained electrocautery multiple 3-0 Vicryl sutures. I then made a stab incision inferior and lateral to the wound and exited a 10 round LEONOR drain. Secured the drain in place with 3-0 nylon[address] the drain to the subcutaneous area. I then pleaded this skin subcutaneous flaps to the chest wall with multiple interrupted 2-0 Vicryl sutures. Then used simple sutures of 3-0 nylon to approximate the skin edges. Good approximation was achieved. Telfa 4 x 4's ABDs and paper tape dressing applied. Sponge and instrument and needle counts were reported to the surgeon to be correct. Blood loss minimal. Drains 1 round 10 LEONOR. Specimen lipoma/subcutaneous partial subfascial mass. He was taken to the recovery room in satisfied condition without apparent complication Mikael Singletary M.D., F.A.C.S. Surgeon: Mikael Singletary Type of Anesthesia: Local MAC Anesthesiologist: Rajan Post
[2023-07-01 11:22] VITALS: BP 131/86; BP 142/88; PULSE 90; RESP 18; TEMP 36.8; O2SAT 93
[2023-07-01 11:45] VITALS: BP 118/86; BP 142/88; PULSE 76; RESP 16; O2SAT 97
[2023-07-01 12:00] VITALS: BP 113/79; BP 142/88; PULSE 69; RESP 16; TEMP 36.6; O2SAT 98
[2023-07-01 12:01] VITALS: BP 142/88; O2SAT 97
[2023-07-01 12:25] VITALS: BP 142/88
== END 2023-07-01 12:45 | disposition home or self-care (01) ==
LOC: SDC 07:27 → AC 07:28
PROVIDERS: Visit Provider Surgery
PROC: (CPT 21931; principal; 2023-07-01 09:30)
DX: D17.1 Benign lipomatous neoplasm of skin and subcutaneous tissue of trunk (principal); E11.9 Type 2 diabetes mellitus without complications; I10 Essential (primary) hypertension; E78.00 Pure hypercholesterolemia, unspecified; L72.3 Sebaceous cyst; F41.9 Anxiety disorder, unspecified; K21.9 Gastro-esophageal reflux disease without esophagitis; Z79.899 Other long term (current) drug therapy; Z79.84 Long term (current) use of oral hypoglycemic drugs; Z87.891 Personal history of nicotine dependence
CPT/HCPCS: 21931; 00300; 36415; 80048; 82962; 85027; 88304; 93005; J7120; J2405

== ENCOUNTER → 2024-03-31 | Outpatient (CLI) | payer OTHER, SELFPAY ==
[2022-04-22 08:14] VITALS: BMI 30.6
--- NOTE | 2024-03-31 08:02 | CT_ITS ---
EXAM: CT CHEST WITHOUT INTRAVENOUS CONTRAST CLINICAL INDICATION: ECTASIA OF ASCENDING AORTA TECHNIQUE: Helically acquired images were obtained of the chest without intravenous contrast. This CT exam was performed using one or more of the following dose reduction techniques: automated exposure control, adjustment of the mA and/or kV according to patient size, and/or use of iterative reconstruction technique. COMPARISON: No relevant prior studies available. FINDINGS: LUNGS AND PLEURAL SPACES: Prominent diffuse paraseptal and centrilobular emphysematous changes of the lungs particularly involving the upper lobes. No mass. No pleural effusion or thickening. No pneumothorax. HEART: Normal heart size. Prominent coronary artery calcification. MEDIASTINUM: Normal. No mediastinal or hilar adenopathy. Esophagus is unremarkable. No hiatal hernia. BONES/JOINTS: No suspicious lytic or blastic abnormality. VASCULATURE: 4 cm ectasia of the ascending thoracic aorta. CT/Chest without Contrast IMPRESSION: 1. Prominent diffuse pulmonary emphysema. 2. 4 cm ectasia of the ascending thoracic aorta. Electronically Signed: Antony Dixon MD at 11:13 EDT ,
== END | disposition home or self-care (01) ==
LOC: CT 07:54
PROVIDERS: Referring Provider Nurse Practitioner Adult Health; Visit Provider Nurse Practitioner Adult Health
DX: I77.819 Aortic ectasia, unspecified site (principal)
CPT/HCPCS: 71250

== ENCOUNTER 2024-05-05 20:46 | Inpatient (IN) | payer OTHER, SELFPAY ==
[2022-04-22 08:14] VITALS: BMI 30.6
[2024-05-05 20:46] VITALS: BP 128/89; PULSE 94; RESP 15; TEMP 36.1; O2SAT 95; BMI 29.4
--- NOTE | 2024-05-05 21:03 | EDS_ITS ---
HPI History of Present Illness Chief Complaint: Edema Informant: patient and spouse/S.O. Narrative Narrative: 73-year-old male presenting to the emergency room with tongue swelling. In 2014 patient was admitted to the hospital with angioedema. No definitive cause was found at that time. States he did not have any occurrence prior to that or since then until today. He notes that yesterday he had hematuria and was started on nitrofurantoin through primary care at the [facility] in [place]. He states that today his urine seemed back to normal. He has had 2 doses of the nitrofurantoin. He is a former smoker not currently on anticoagulants. Patient notes that he has had some constipation recently but this morning had a very large yellow liquidy foul-smelling bowel movement. He states that this evening he noted that the right side of his tongue was swelling. Other than nitrofurantoin he denies any other new medications. He is on lisinopril. He was not on lisinopril in 2014. He denies any history of hives or asthma does note a history of COPD. PFSH PFSH Medical History Prostate disease Dietary restriction Lipoma of back Sebaceous cyst Aneurysm Anxiety Excessive bleeding Chronic cough History of edema History of stress test History of echocardiogram Degenerative joint disease of hand Hyperlipidemia Benign essential hypertension Wears hearing aid Wears glasses Wears dentures Depression Alcohol use Diabetes History of steroid therapy Arthritis Hepatitis Easy bruising Gastric reflux Shortness of breath on exertion On home oxygen therapy Leg cramps Former smoker Hypertension COPD (chronic obstructive pulmonary disease) Smoking greater than 40 pack years Home Medications ?Medication ?Instructions ?Recorded ?Last Taken ?Type amlodipine 10 mg tablet 10 mg PO DAILY HTN 12/23/21 Unknown History melatonin 3 mg tablet 3 mg PO QHS 12/23/21 Unknown History multivitamin 1 tab PO DAILY 12/23/21 Unknown History tamsulosin 0.4 mg capsule 0.4 mg PO QHS 12/23/21 Unknown History citalopram 10 mg tablet 20 mg PO DAILY MOOD 02/21/22 Unknown History guaifenesin 200 mg tablet 200 mg PO Q4H PRN Cough 02/21/22 Unknown History albuterol sulfate 90 mcg/actuation 1 inh inhalation BID 03/24/22 07/01/23 History aerosol inhaler (Ventolin HFA) fluticasone propionate 50 1 spray intranasal DAILY 04/29/22 Unknown History mcg/actuation nasal spray,suspension pantoprazole 20 mg tablet,delayed 20 mg PO DAILY GERD 04/29/22 Unknown History release atorvastatin 40 mg PO DAILY 10/13/22 Unknown History mupirocin 2 % topical ointment 1 applic topical BID #22 grams 11/05/22 Unknown Rx chlorthalidone 25 mg tablet 25 mg PO DAILY 04/29/23 Unknown History glipizide 10 mg tablet 10 mg PO BID 04/29/23 Unknown History potassium chloride 20 mEq 20 meq PO BID #6 tabs 06/16/23 Unknown Rx tablet,extended release(part/cryst) alogliptin 25 mg tablet 25 mg PO DAILY 05/05/24 Unknown History aspirin 81 mg capsule 81 mg PO DAILY 05/05/24 Unknown History empagliflozin 25 mg tablet 12.5 mg PO DAILY 05/05/24 Unknown History nitrofurantoin macrocrystal 100 mg 100 mg PO BID 05/05/24 Unknown History capsule (Macrodantin) primidone 50 mg tablet (Mysoline) 50 mg PO QHS 05/05/24 Unknown History Allergy/AdvReac Type Severity Reaction Status Date / Time adhesive tape AdvReac Intermediate Rash Verified 05/05/24 20:47 gabapentin AdvReac Unknown PT UNSURE Verified 05/05/24 20:47 OF REACTION rosuvastatin AdvReac Unknown PT UNSURE Verified 05/05/24 20:47 OF REACTION hydroxyzine AdvReac NEEDS Verified 05/05/24 20:47 FOLLOW-UP Family History Father Cancer Heart disease Mother Heart disease Myocardial infarction Surgical History History of excision of mass History of cataract surgery History of esophagogastroduodenoscopy (EGD) Hx of colonoscopy History of hand surgery Hx of appendectomy H/O wrist surgery Social History household members: spouse Smoking Status: Former smoker quit date: 09/26/21 pack-years: 90 Tobacco: How many years used: 60 alcohol intake: former substance use type: does not use ROS ROS ED Constitutional Constitutional ED: Denies chills, fever(s) or weight loss Eyes Eyes: Denies change in vision or diplopia ENT ENT ED: Reports other Details: See history of present illness ; Denies ear pain, rhinorrhea or sore throat Cardiovascular Cardiovascular: Denies chest pain, orthopnea, palpitations or racing heartbeat Respiratory/Chest Respiratory/Chest: Denies cough, dyspnea or orthopnea Gastrointestinal Gastrointestinal: Denies abdominal pain, diarrhea, nausea or vomiting Genitourinary Genitourinary ED: Reports hematuria; Denies dysuria or urinary frequency Musculoskeletal Musculoskeletal: Denies arthralgias or myalgias Integumentary Denies abscess or rash Neurologic Neurologic: Denies headache(s) or weakness Psychiatric Psychiatric: Denies anxiety, depression, suicidal ideation or suicidal thoughts Endocrine Endocrinology: Denies polydipsia, polyphagia or polyuria Allergic/Immunologic Allergic/Immunologic ED: Denies mouth swelling, tongue swelling or urticaria EXAM Physical Exam Const Vital Signs: 05/05/24 20:46 05/05/24 20:46 05/05/24 21:46 Temperature 97 F L Temperature Source Temporal Pulse Rate 94 90 Respiratory Rate 15 29 H Respiratory Effort Normal Non-Labored Respiratory Pattern Normal Blood Pressure 128/89 H 127/107 H Blood Pressure Mean 102 113 Pulse Ox 95 96 Oxygen Delivery Method Room Air 05/05/24 22:00 Temperature Temperature Source Pulse Rate 80 Respiratory Rate 21 H Respiratory Effort Respiratory Pattern Blood Pressure 122/85 H Blood Pressure Mean 97 Pulse Ox 94 Oxygen Delivery Method Room Air Positive well nourished and well developed General Appearance ED: well developed HEENT Reports normocephalic, head/scalp atraumatic and moist mucous membranes HEENT Narrative: Floor the mouth is swollen. The right side of the tongue is edematous. I can still visualize the uvula. Lips are not swollen. There is no stridor. There is no trismus. states his voice seems quieter than normal and his speech somewhat slurred Eyes PERRL and EOMs intact bilaterally Neck no lymphadenopathy, supple and no JVD Resp normal respiratory effort and clear to auscultation bilaterally Cardio regular rate, regular rhythm and no murmurs GI normal to inspection, nondistended, normoactive bowel sounds and non-tender Palpation: soft Back/Spine no CVA tenderness and normal ROM Extremity normal to inspection General Extremety ED: Negative for edema General Extremity: Negative for edema Neuro oriented x3 and CN's II-XII intact bilaterally Sensorium / Orientation: alert Motor Exam: strength 5/5 throughout Psych mental status grossly normal Mood & Affect: Negative for depressed or tearful Skin no rashes or lesions noted and no wounds MDM MDM MDM Narrative Medical decision making narrative: Differential diagnosis includes angioedema acute allergic reaction UTI sepsis Jayesh's angina. White count returned substantially elevated at 21.1 which she has a history of having significantly elevated white blood cell counts in the past. Hemoglobin 17.4. Creatinine 1.46. Potassium slightly low at 3.1. Total bilirubin 1.7 direct bilirubin 0.55 CO2 is 29 anion gap is 6. Urinalysis demonstrates 50-100 white cells 10-25 red blood cells positive nitrates 3+ bacteria. This was sent for culture. Blood cultures lactic acid (which returns in the normal range) was ordered he received Rocephin. He also received Benadryl and Solu-Medrol Pepcid. He had some mild progression of tongue swelling particularly on the left. I can still understand his speech and I can still visualize the top half of the uvula. Plan is to be admission into the hospital. Patient understands if he feels that his tongue is significantly more swollen he needs to alert nursing staff immediately. History & Record Review Discussion w/independent historian: Patient and Significant other Additional record(s) reviewed:: Prior inpatient record, Prior ED visit and Prior labs Lab Data Attestation: I reviewed the patient's lab results. Labs: Laboratory Results - last 24 hr 05/05/24 05/05/24 05/05/24 20:49 22:06 22:41 WBC 21.1 H RBC 5.24 Hgb 17.4 H Hct 50.2 MCV 95.8 H MCH 33.2 H MCHC 34.7 RDW Std Deviation 51.8 H RDW Coeff of Tarik 14.6 Plt Count 284 MPV 10.4 Immature Gran % (Auto) 1.100 H Neut % (Auto) 89.5 H Lymph % (Auto) 3.8 L [place] % (Auto) 5.3 Eos % (Auto) 0.1 Baso % (Auto) 0.2 Absolute Neuts (auto) 18.9 H Absolute Lymphs (auto) 0.80 L Nucleated RBC % 0 Sodium 131 L Potassium 3.1 L Chloride 96 L Carbon Dioxide 29.0 Anion Gap 6 BUN 17 Creatinine 1.46 H Estim Creat Clear Calc 52.40 Est GFR (MDRD) Af Amer 61 Est GFR (MDRD) Non-Af 50 L BUN/Creatinine Ratio 11.6 Glucose 197 H Lactic Acid 1.8 Calcium 9.3 Magnesium 2.3 Total Bilirubin 1.70 H Direct Bilirubin 0.55 H AST 17 ALT 39 Alkaline Phosphatase 103 Total Protein 7.6 Albumin 3.4 Globulin 4.2 Urine Color Yellow Urine Clarity Cloudy Urine pH 6.0 Ur Specific [place] 1.015 Urine Protein 100 H Urine Glucose (UA) 1000 H Urine Ketones 5 H Urine Occult Blood 250 H Urine Nitrite Positive H Urine Bilirubin Negative Urine Urobilinogen Normal Ur Leukocyte Esterase 500 H Urine RBC 10-25 SEEN Urine WBC 50-100 SEEN Ur Squamous Epith Cells 0 SEEN Urine Bacteria 3+ Urine Mucus 0 SEEN Management Discussion w/another healthcare provider: Hospitalist (Dr Trinidad) Discharge Plan Dx/Rx/DC Orders Clinical Impression: Acute UTI, Angioedema Disposition Disposition: Acute Care [facility]
[2024-05-05] MEDS: DiphenhydrAMINE 50 MG/ML Syringe IV (21:16)
[2024-05-05] MEDS: Famotidine 200 MG/20 ML MDV 20 MG in 0.9% Normal Saline (Pres. free 8 ML 300 MG IV (21:16)
[2024-05-05] MEDS: MethylPREDNISolone 125 MG/2 ML Vial IV (21:16)
[2024-05-05 21:25] LABS: Absolute Neutrophil Count 18.9 X10^3/uL (2.0-7.7); Basophil# 0.05 X10^3/uL; Basophil% 0.2 % (0-1); Eosinophil# 0.03 X10^3/uL; Eosinophils% 0.1 % (0-5); Hematocrit 50.2 % (40-54); Hemoglobin 17.4 g/dL (13.0-16.5); Lymphocyte % 3.8 % (19-41); Mean Corp Hgb Conc 34.7 g/dL (32-36); Mean Corpuscular Hgb 33.2 pg (27.0-32.0); Mean Corpuscular Volume 95.8 fL (80-94); Mean Platelet Vol. 10.4 fl (6.2-12.0); Monocyte# 1.13 X10^3/uL; Monocyte% 5.3 % (0-10); NRBC Flagged by Analyzer 0 % (0-5); Neutrophil % 89.5 % (47-70); Platelet Count 284 K/mm3 (150-450); RBC Distribution Width CV 14.6 % (11.6-14.6); RBC Distribution Width SD 51.8 fl (35.1-43.9); Red Blood Count 5.24 M/mm3 (4.6-6.2); White Blood Count 21.1 K/mm3 (4.4-11.0)
[2024-05-05 21:45] LABS: AST(SGOT) 17 U/L (15-37); Alanine Aminotransfer ALT/SGPT 39 U/L (16-61); Albumin, Serum 3.4 g/dL (3.2-5.0); Alkaline Phosphatase 103 U/L (45-117); Anion Gap 6 (5-15); BUN 17 mg/dL (7-18); BUN/Creat Ratio 11.6 RATIO (10-20); Bilirubin, Direct 0.55 mg/dL (0.00-0.30); Calcium,Total 9.3 mg/dL (8.5-10.1); Chloride 96 mmol/L (98-107); Creatinine, Serum 1.46 mg/dL (0.70-1.30); EST Glomerular Filtration Rate 50 mL/min (>60); Est Glom Filt Rate - Afr Amer 61 mL/min (>60); Globulin 4.2 g/dL (2.2-4.2); Glucose 197 mg/dL (74-106); Potassium 3.1 mmol/L (3.5-5.1); Protein, Total 7.6 g/dL (6.4-8.2); Sodium Level 131 mmol/L (136-145)
[2024-05-05 21:46] VITALS: BP 127/107; PULSE 90; RESP 29; O2SAT 96
[2024-05-05 22:00] VITALS: BP 122/85; PULSE 80; RESP 21; O2SAT 94
[2024-05-05 22:10] LABS: Mucous, Urine 0 SEEN /hpf (<or=2+); Squamous Epithelial Cells - UA 0 SEEN /hpf (0-5)
[2024-05-05 22:19] LABS: Color, Urine Yellow (Yellow); Glucose, Dipstick 1000 mg/dl (Normal); Ketone-Dipstick 5 mg/dl (Negative); Leukocyte Esterase-Dipstick 500 /ul (Negative); Nitrite-Dipstick Positive (Negative); Occult Blood-Urine 250 /ul (Negative); Protein-Dipstick 100 mg/dl (Negative); Specific Gravity, Urine 1.015 (1.002-1.030); Urine Bilirubin Dipstick Negative (Negative); Urine Clarity Cloudy (Clear); Urine Urobilinogen Normal (Normal)
[2024-05-05 22:33] LABS: Red Blood Cells-Urine 10-25 SEEN /hpf (0-5)
[2024-05-05 22:34] LABS: Bacteria 3+ /hpf (None Seen); White Blood Cells 50-100 SEEN /hpf (0-5)
--- NOTE | 2024-05-05 22:49 | PCM.HP.STD ---
HPI - General General Date of Admission: 05/05/24 Date of Service: 05/05/24 Chief Complaint: Tongue swelling. HPI Narrative The patient is a 73 y/o M w/ PMHx: COPD, Former tobacco use, HTN, HLD, Anxiety and Depression, BPH, Allergic rhinitis, Diabetes mellitus type II, CKD stage II per GFR trending who presents to the [facility] ED on 05/05/24 with history of onset tongue swelling with recent initiation on nitrofurantoin the day prior as he had onset of dysuria initially and then 2 days following episode of hematuria with concern for urinary tract infection seen by his primary care in the OR system in [place] reporting that he had 2 doses of nitrofurantoin with then onset this evening right-sided tongue swelling with ability to maintain his airway and swallow secretions with no swelling of his lips prompting eventual ED evaluation. He denies any recent medication changes but does report being on an ROSALVA inhibitor. In 2014 he was admitted to the hospital and did have angioedema at that time but was not on any ROSALVA inhibitor/ARB at that time and it was unclear what was the etiology. He does report hematuria has resolved since start of antibiotic therapy. He notes that this morning he did have a foul-smelling large bowel movement but otherwise no other acute events have occurred. He denies any wheezing or stridor. He denies any dyspnea. Workup in the ED included T97, heart rate 94, BP 128/89, respiratory rate 15, 95% on room air, CBC with WC 21.1, hemoglobin 17.4, MCV 95.8, platelet 284 with left shift and lymphopenia, CMP with sodium 131, potassium 3.1, chloride 96, BUN/creatinine 17/1.46, GFR 50, glucose 187, T. bili 1.70, T. bili 0.55, unremarkable hepatic profile otherwise, urinalysis with urine protein 100, glucose of thousand, ketone 5, occult blood 250, positive nitrate, leukocyte Estrace 500 with urine WBCs 50-100 with 3+ urine bacteria, urine culture pending per ED. in the ED patient ministered Solu-Medrol 125 mg IV x 1, IV famotidine as well as IV Benadryl, IV Rocephin 1 g IV x 1. PFSH Medical History Prostate disease Dietary restriction Lipoma of back Sebaceous cyst Aneurysm Anxiety Excessive bleeding Chronic cough History of edema History of stress test History of echocardiogram Degenerative joint disease of hand Hyperlipidemia Benign essential hypertension Wears hearing aid Wears glasses Wears dentures Depression Alcohol use Diabetes History of steroid therapy Arthritis Hepatitis Easy bruising Gastric reflux Shortness of breath on exertion On home oxygen therapy Leg cramps Former smoker Hypertension COPD (chronic obstructive pulmonary disease) Smoking greater than 40 pack years Home Medications ?Medication ?Instructions ?Recorded ?Last Taken ?Type amlodipine 10 mg tablet 10 mg PO DAILY HTN 12/23/21 Unknown History melatonin 3 mg tablet 3 mg PO QHS 12/23/21 Unknown History multivitamin 1 tab PO DAILY 12/23/21 Unknown History tamsulosin 0.4 mg capsule 0.4 mg PO QHS 12/23/21 Unknown History citalopram 10 mg tablet 20 mg PO DAILY MOOD 02/21/22 Unknown History guaifenesin 200 mg tablet 200 mg PO Q4H PRN Cough 02/21/22 Unknown History albuterol sulfate 90 mcg/actuation 1 inh inhalation BID 03/24/22 07/01/23 History aerosol inhaler (Ventolin HFA) fluticasone propionate 50 1 spray intranasal DAILY 04/29/22 Unknown History mcg/actuation nasal spray,suspension pantoprazole 20 mg tablet,delayed 20 mg PO DAILY GERD 04/29/22 Unknown History release atorvastatin 40 mg PO DAILY 10/13/22 Unknown History mupirocin 2 % topical ointment 1 applic topical BID #22 grams 11/05/22 Unknown Rx chlorthalidone 25 mg tablet 25 mg PO DAILY 04/29/23 Unknown History glipizide 10 mg tablet 10 mg PO BID 04/29/23 Unknown History potassium chloride 20 mEq 20 meq PO BID #6 tabs 06/16/23 Unknown Rx tablet,extended release(part/cryst) alogliptin 25 mg tablet 25 mg PO DAILY 05/05/24 Unknown History aspirin 81 mg capsule 81 mg PO DAILY 05/05/24 Unknown History empagliflozin 25 mg tablet 12.5 mg PO DAILY 05/05/24 Unknown History nitrofurantoin macrocrystal 100 mg 100 mg PO BID 05/05/24 Unknown History capsule (Macrodantin) primidone 50 mg tablet (Mysoline) 50 mg PO QHS 05/05/24 Unknown History Allergy/AdvReac Type Severity Reaction Status Date / Time adhesive tape AdvReac Intermediate Rash Verified 05/05/24 20:47 gabapentin AdvReac Unknown PT UNSURE Verified 05/05/24 20:47 OF REACTION rosuvastatin AdvReac Unknown PT UNSURE Verified 05/05/24 20:47 OF REACTION hydroxyzine AdvReac NEEDS Verified 05/05/24 20:47 FOLLOW-UP Family History Father Cancer Heart disease Mother Heart disease Myocardial infarction Surgical History History of excision of mass History of cataract surgery History of esophagogastroduodenoscopy (EGD) Hx of colonoscopy History of hand surgery Hx of appendectomy H/O wrist surgery Social History household members: spouse Smoking Status: Former smoker quit date: 09/26/21 pack-years: 90 Tobacco: How many years used: 60 alcohol intake: former substance use type: does not use ROS ROS Narrative Admission Review of Systems: CONSTITUTIONAL: No weight loss, fever, chills, + weakness or fatigue. HEENT: + Sensation of oropharynx and tongue swelling. Eyes: No visual loss, blurred vision, double vision or yellow sclerae. Ears, Nose, Throat: No hearing loss, sneezing, congestion, runny nose or sore throat. SKIN: No rash or itching, lesions, wounds. CARDIOVASCULAR: No chest pain, chest pressure or chest discomfort, palpitations, edema, orthopnea, syncopal events. RESPIRATORY: No shortness of breath, cough or sputum, wheezing, hemoptysis. GASTROINTESTINAL: + Nausea, bout of emesis x 1. No anorexia, diarrhea, abdominal pain, melena, BRBPR. GENITOURINARY: + Dysuria, transient hematuria. No marked frequency, urgency or retention. History of BPH. + NEUROLOGICAL: No headache, dizziness, syncope, paralysis, ataxia, numbness or tingling in the extremities, focal weakness, change in bowel or bladder control, seizure. MUSCULOSKELETAL:+ muscle, back pain, joint pain or stiffness. HEMATOLOGIC: No anemia. Easy bleeding/bruising. + LYMPHATICS: No enlarged nodes. No history of splenectomy. PSYCHIATRIC: + History of anxiety and depression. ENDOCRINOLOGIC: No reports of sweating, cold or heat intolerance. No polyuria or polydipsia. ALLERGIES: + History of allergic rhinitis. Vital Signs Vital Signs Vital Signs: 05/05/24 20:46 05/05/24 20:46 05/05/24 21:46 Temperature 97 F L Temperature Source Temporal Pulse Rate 94 90 Respiratory Rate 15 29 H Respiratory Effort Normal Non-Labored Respiratory Pattern Normal Blood Pressure 128/89 H 127/107 H Blood Pressure Mean 102 113 Pulse Ox 95 96 Oxygen Delivery Method Room Air 05/05/24 22:00 Temperature Temperature Source Pulse Rate 80 Respiratory Rate 21 H Respiratory Effort Respiratory Pattern Blood Pressure 122/85 H Blood Pressure Mean 97 Pulse Ox 94 Oxygen Delivery Method Room Air Weight Weight: 211 lb Body Mass Index (BMI) 29.4 Physical Exam Narrative Physical Examination: General: Awake, alert, oriented x 3 and cooperative, seated upright in the ED bed, fatigued, notes oropharynx feels improved, tongue less swollen, swallowing without issue, drinking water upon initial evaluation. Skin: Normal color, normal turgor, no icterus, no cyanosi except for occasional staged ecchymoses, bilateral lower extremity venous stasis skin changes s. HEENT: AT/NC, EOMI, PERRLA, mildly dry MM, mild base of the oropharynx swelling, mild right tongue swelling but not severe, able to tolerate secretions, no swelling to the posterior oropharynx, no carotid bruits or JVD noted. Lungs: Mildly diminished, greater bases, proper effort, no rales, ronchi or wheezing. Heart: Regular rate and rhythm; no gallop, rub audible. Abdomen: Soft, obese, NTTP, ND, normal BS, no appreciated HSM. Extremities: No cyanosis, clubbing, or edema. Neurological: Patient awake, alert, oriented as noted, cognitive function intact; pupils equally reactive to light and accommodation, cranial nerves grossly normal, moving all 4 extremities, no focal deficits, strength moderately globally decreased secondary to acute presentation complaints Psychiatric: Affect appears fatigued, no acute evidence of depressive or anxiety feelings but does have underlying history. Results Lab / Micro Data 05/05/24 20:49 05/05/24 20:49 Labs: Laboratory Results - last 24 hr 05/05/24 20:49: WBC 21.1 H, RBC 5.24, Hgb 17.4 H, Hct 50.2, MCV 95.8 H, MCH 33.2 H, MCHC 34.7, RDW Std Deviation 51.8 H, RDW Coeff of Tarik 14.6, Plt Count 284, MPV 10.4, Immature Gran % (Auto) 1.100 H, Neut % (Auto) 89.5 H, Lymph % (Auto) 3.8 L, [place] % (Auto) 5.3, Eos % (Auto) 0.1, Baso % (Auto) 0.2, Absolute Neuts (auto) 18.9 H, Absolute Lymphs (auto) 0.80 L, Nucleated RBC % 0, Sodium 131 L, Potassium 3.1 L, Chloride 96 L, Carbon Dioxide 29.0, Anion Gap 6, BUN 17, Creatinine 1.46 H, Estim Creat Clear Calc 52.40, Est GFR (MDRD) Af Amer 61, Est GFR (MDRD) Non-Af 50 L, BUN/Creatinine Ratio 11.6, Glucose 197 H, Calcium 9.3, Total Bilirubin 1.70 H, Direct Bilirubin 0.55 H, AST 17, ALT 39, Alkaline Phosphatase 103, Total Protein 7.6, Albumin 3.4, Globulin 4.2 05/05/24 22:06: Urine Color Yellow, Urine Clarity Cloudy, Urine pH 6.0, Ur Specific Bailey 1.015, Urine Protein 100 H, Urine Glucose (UA) 1000 H, Urine Ketones 5 H, Urine Occult Blood 250 H, Urine Nitrite Positive H, Urine Bilirubin Negative, Urine Urobilinogen Normal, Ur Leukocyte Esterase 500 H, Urine RBC 10-25 SEEN, Urine WBC 50-100 SEEN, Ur Squamous Epith Cells 0 SEEN, Urine Bacteria 3+, Urine Mucus 0 SEEN Assessment & Plan Assessment/Plan (1) UTI (urinary tract infection): PLAN: Plan The patient is a 73 y/o M w/ PMHx: COPD, Former tobacco use, HTN, HLD, Anxiety and Depression, BPH, Allergic rhinitis, Diabetes mellitus type II, CKD stage II per GFR trending who presents to the [facility] ED on 05/05/24 with history of onset tongue swelling with recent initiation on nitrofurantoin the day prior as he had onset of hematuria with concern for urinary tract infection seen by his primary care in the OR system in [place] reporting that he had 2 doses of nitrofurantoin with then onset this evening right-sided tongue swelling with ability to maintain his airway and swallow secretions with no swelling of his lips prompting eventual ED evaluation. #1. Acute Complicated Urinary Tract Infection: Will admit to PCU, UA upon ED evaluation remarkable, pending UCx, maintain on judicious IV fluids, monitor I/Os, continue IV Rocephin w/ transition as able pending sensitivities and speciation. #2. Acute renal insufficiency on CKD stage II per GFR trending: Likely secondary to acute presentation as noted number 1, admission BUN/creatinine 17/1.46, GFR 50, baseline creatinine primarily 0.9-1.1, baseline GFR primarily 70-80 range, most recently prior to current presentation 06/15/2023 GFR 79, will continue to trend CMP. #3. Atypical tongue swelling/angioedema with previous history of angioedema of unclear specific cause remotely 2015: Patient with recent initiation on nitrofurantoin for suspected UTI with recent hematuria starting day prior, no other recent medication changes or additions but patient is on ROSALVA inhibitor, will discontinue nitrofurantoin as well as ROSALVA inhibitor, given no airway obstructive concerns will administer IV Benadryl, IV famotidine, IV Solu-Medrol x 2 doses and may further treat pending responses but given acute infection would like to defer aggressive steroids. #4. Hypokalemia: Admission K+ 3.1, magnesium level request, supplementation given, repeat level in AM. #5. Chronic COPD: Will temporally hold home inhaler regimen and in the interim will maintain on ATC budesonide therapy, PRN albuterol, HOB, IS parameters. #6. Diabetes mellitus type II: Hold oral home regimen,clears until assure oral intake safe given #3, accu checks w/ ISS. #7. Hypertension: Continue home regimen including amlodipine, chlorthalidone, as noted holding lisinopril,, PRN hydralazine. #8. Hyperlipidemia: Will continue patient on statin therapy. #9. Anxiety and depression: We will continue patient on citalopram regimen. #10. BPH: We will continue patient on Flomax regimen. #11. Allergic rhinitis: We will continue patient home fluticasone regimen. #12. Former tobacco use: Encourage continued tobacco cessation. #13. DVT prophylaxis: Lovenox. #14. CODE status: Patient HCPOA and living will are not in place however he notes that if he needed medical decisions made and was unable he would want his to be his medical decision-maker. Discussed CODE status at length including difference between FULL code, DNR-CCA and DNR-CC status. Following discussions about the differences in these status, requested Full Code status. Advanced Care Planning Face to Face Time: 16 minutes. Charges/Coding Visit Charges Inpatient E&M: 19811 Init Hosp L3 Procedures Hospitalists Procedures: 89047 Advncd Care Plan 30 Min
[2024-05-05 22:54] VITALS: BP 124/84; PULSE 79; RESP 25; TEMP 36.9; O2SAT 93
[2024-05-05 22:55] VITALS: BP 124/84; PULSE 80; RESP 23; TEMP 36.9; O2SAT 94
[2024-05-05] MEDS: Ceftriaxone 1 GM/50 ML BAG IV (23:03)
[2024-05-05 23:14] LABS: Magnesium 2.3 mg/dL (1.6-2.6)
[2024-05-05 23:26] LABS: Lactic Acid 1.8 mmol/L (0.4-1.9)
[2024-05-05 23:46] VITALS: BMI 28.5
[2024-05-06] VITALS (7 sets, daily range): BP systolic 109–123; BP diastolic 62–84; PULSE 66–100; RESP 16–18; TEMP 36.4–36.7; O2SAT 93–97; BMI 28.3
[2024-05-06] MEDS: 0.9% Normal Saline (1000mL) 1,000 ML 100 ML IV (00:22)
[2024-05-06] MEDS: Potassium Chloride Oral Tablet 20 MEQ 40 MEQ PO ×2 (00:22→12:27)
[2024-05-06] MEDS: Insulin Lispro 100 UNIT/ML INSULN.PEN SC ×5 (00:27→22:44)
[2024-05-06 05:33] LABS: Absolute Lymphocyte Count 0.67 X10^3/uL (0.83-4.51); Absolute Neutrophil Count 15.6 X10^3/uL (2.0-7.7); Basophil# 0.02 X10^3/uL; Basophil% 0.1 % (0-1); Eosinophil# 0.01 X10^3/uL; Eosinophils% 0.1 % (0-5); Hematocrit 46.5 % (40-54); Lymphocyte # 0.67 X10^3/ul (0.83-4.51); Mean Corp Hgb Conc 34.4 g/dL (32-36); Mean Corpuscular Hgb 33.1 pg (27.0-32.0); Mean Corpuscular Volume 96.1 fL (80-94); Mean Platelet Vol. 10.5 fl (6.2-12.0); Monocyte# 0.32 X10^3/uL; Monocyte% 1.9 % (0-10); NRBC Flagged by Analyzer 0 % (0-5); Neutrophil # 15.59 X10^3/uL (2.7-7.7); Platelet Count 255 K/mm3 (150-450); RBC Distribution Width CV 14.6 % (11.6-14.6); RBC Distribution Width SD 51.8 fl (35.1-43.9); Red Blood Count 4.84 M/mm3 (4.6-6.2); White Blood Count 16.8 K/mm3 (4.4-11.0)
[2024-05-06 06:07] LABS: ALB/GLOB Ratio 0.7 RATIO (0.9-2.4); AST(SGOT) 19 U/L (15-37); Alanine Aminotransfer ALT/SGPT 31 U/L (16-61); Alkaline Phosphatase 93 U/L (45-117); Anion Gap 11 (5-15); BUN 21 mg/dL (7-18); BUN/Creat Ratio 17.4 RATIO (10-20); Calcium,Total 8.9 mg/dL (8.5-10.1); Chloride 99 mmol/L (98-107); Creatinine, Serum 1.21 mg/dL (0.70-1.30); EST Glomerular Filtration Rate 62 mL/min (>60); Est Glom Filt Rate - Afr Amer 75 mL/min (>60); Estimated Creatinine Clearance 62.38 ml/min; Globulin 4.1 g/dL (2.2-4.2); Glucose 193 mg/dL (74-106); Potassium 3.3 mmol/L (3.5-5.1); Protein, Total 7.1 g/dL (6.4-8.2); Sodium Level 136 mmol/L (136-145)
[2024-05-06 06:20] LABS: Bedside Glucose 183 mg/dL (74-106)
[2024-05-06] MEDS: DiphenhydrAMINE 50 MG/ML Syringe IV ×2 (06:42→13:14)
[2024-05-06 07:09] LABS: Bedside Glucose 191 mg/dL (74-106)
--- NOTE | 2024-05-06 07:43 | PN.HOSP_ITS ---
Reason for Visit Reason for Visit: Diagnoses Urinary tract infection, site not specified (05/05/24) Objective Data Objective Data Vital Signs: Vital Signs Temp Pulse Resp BP Pulse Ox O2 Del Method 97.8 F 67 18 109/77 93 Room Air 05/06/24 06:48 05/06/24 06:48 05/06/24 06:48 05/06/24 06:48 05/06/24 06:48 05/06/24 06:48 Oxygen Delivery Method Room Air Weight: 203 lb 0.732 oz Body Mass Index (BMI) 28.3 Intake & Output: Intake and Output for Last 24 Hours 05/04/24 05/05/24 05/06/24 23:59 23:59 23:59 Intake Total 50 / 50 Balance 50 50 Lab / Micro Data 05/06/24 04:25 05/06/24 04:25 Labs: Laboratory Results - last 24 hr 05/05/24 20:49: WBC 21.1 H, RBC 5.24, Hgb 17.4 H, Hct 50.2, MCV 95.8 H, MCH 33.2 H, MCHC 34.7, RDW Std Deviation 51.8 H, RDW Coeff of Tarik 14.6, Plt Count 284, MPV 10.4, Immature Gran % (Auto) 1.100 H, Neut % (Auto) 89.5 H, Lymph % (Auto) 3.8 L, [place] % (Auto) 5.3, Eos % (Auto) 0.1, Baso % (Auto) 0.2, Absolute Neuts (auto) 18.9 H, Absolute Lymphs (auto) 0.80 L, Nucleated RBC % 0, Sodium 131 L, Potassium 3.1 L, Chloride 96 L, Carbon Dioxide 29.0, Anion Gap 6, BUN 17, Creatinine 1.46 H, Estim Creat Clear Calc 52.40, Est GFR (MDRD) Af Amer 61, Est GFR (MDRD) Non-Af 50 L, BUN/Creatinine Ratio 11.6, Glucose 197 H, Calcium 9.3, Magnesium 2.3, Total Bilirubin 1.70 H, Direct Bilirubin 0.55 H, AST 17, ALT 39, Alkaline Phosphatase 103, Total Protein 7.6, Albumin 3.4, Globulin 4.2 05/05/24 22:06: Urine Color Yellow, Urine Clarity Cloudy, Urine pH 6.0, Ur Specific [place] 1.015, Urine Protein 100 H, Urine Glucose (UA) 1000 H, Urine Ketones 5 H, Urine Occult Blood 250 H, Urine Nitrite Positive H, Urine Bilirubin Negative, Urine Urobilinogen Normal, Ur Leukocyte Esterase 500 H, Urine RBC 10- 25 SEEN, Urine WBC 50-100 SEEN, Ur Squamous Epith Cells 0 SEEN, Urine Bacteria 3+, Urine Mucus 0 SEEN 05/05/24 22:41: Lactic Acid 1.8 05/06/24 00:22: POC Glucose 183 H 05/06/24 04:25: WBC 16.8 H, RBC 4.84, Hgb 16.0, Hct 46.5, MCV 96.1 H, MCH 33.1 H , MCHC 34.4, RDW Std Deviation 51.8 H, RDW Coeff of Tarik 14.6, Plt Count 255, MPV 10.5, Immature Gran % (Auto) 0.900, Neut % (Auto) 93.0 H, Lymph % (Auto) 4.0 L, [place] % (Auto) 1.9, Eos % (Auto) 0.1, Baso % (Auto) 0.1, Absolute Neuts (auto) 15.6 H, Absolute Lymphs (auto) 0.67 L, Nucleated RBC % 0, Sodium 136, Potassium 3.3 L, Chloride 99, Carbon Dioxide 26.0, Anion Gap 11, BUN 21 H, Creatinine 1.21, Estim Creat Clear Calc 62.38, Est GFR (MDRD) Af Amer 75, Est GFR (MDRD) Non-Af 62, BUN/Creatinine Ratio 17.4, Glucose 193 H, Calcium 8.9, Total Bilirubin 0.80, AST 19, ALT 31, Alkaline Phosphatase 93, Total Protein 7.1, Albumin 3.0 L, Globulin 4.1, Albumin/Globulin Ratio 0.7 L 05/06/24 06:41: POC Glucose 191 H Physical Exam Narrative Patient increased frequency urgency, dribbling and burning micturition and hematuria 1 day prior to [facility] when he was started on nitrofurantoin. No fever. Denies any perineal pain. Physical exam General: Alert, Oriented x3, Cooperative HEENT: Atraumatic, PERRLA, EOMI, Normocephalic Oral: No Gingival or Mucosal Lesions/ Ulcerations Neck: Supple, No JVD, Negative Carotid Bruits Chest wall/Lungs: Air entry diminished in bilateral lung bases. No crepitation/rhonchi Cardiovascular: Regular rate, Regular Rhythm, Normal S1, Normal S2, No M/G/R Abdomen: Bowel Sounds Present, Soft, Non Tender, Non-Distended : Dysuria present. No urethral discharge. No perineal tenderness. Scrotal exam normal. No renal angle tenderness. No suprapubic tenderness. Extremities: No edema, Capillary Refill Less than 3 Seconds Skin: No rashes, No breakdown Musculoskeletal: No Tenderness to Palpation of Joints or Extremities Neurological: Cranial nerves II-XII grossly intact, DTR 2+/4. No acute focal neurological deficit. Psych/Mental Status: Normal Affect, Appropriate. Assessment & Plan Assessment/Plan (1) UTI (urinary tract infection): PLAN: Plan The patient is a 73 y/o M came to ED with tongue swelling. In 2014 patient was admitted with angioedema with no definitive cause was found at that time. He he did not had history of angioedema before that and did not had any occurrence since then till the day of admission. Patient was started on nitrofurantoin for hematuria 1 day before admission by [facility]. He took 2 doses of nitrofurantoin and felt right side of tongue swelling. Patient denies any new medications other than nitrofurantoin though he is on lisinopril which she was not on 2014. Denies prior history of hives or asthma but has copd #1. Acute Complicated Urinary Tract Infection: Patient is admitted in PCU. UA shows nitrite positive, LE 500 WBC 5200 and RBC 10-25 cells. Patient has leukocytosis 21,000 improved to 16.8 thousand. On IV fluid. On IV ceftriaxone. blood cultures x 2 urine culture pending. Monitor intake and output. Patient stated that he had prostate spot that he was told. No indication of testing for PSA but advised to follow-up urologist as an outpatient. Lactic acid normal. Sepsis ruled out. #2. CKD stage II: Patient admitted with creatinine 1.46, improved to 1.21. Baseline creatinine 0.98 on June 2023. Monitor kidney function #3. Atypical tongue swelling/angioedema with previous history of angioedema of unclear specific cause remotely 2015: Patient is stated in 2015 it was started after starting on medication which she does not remember. On IV Benadryl famotidine and IV Solu-Medrol x 2 doses given. C4, C1 esterase level, CH 50 and C1q ordered. #4. Hypokalemia: Admission K+ 3.1, magnesium level request, supplementation given, repeat level is still low 3.3. Serum magnesium level normal. #5. COPD: On DuoNeb as needed. Not in exacerbation. \Temporally hold home inhaler regimen and in the interim will maintain on ATC budesonide therapy, PRN albuterol, HOB, IS parameters. #6. Diabetes mellitus type II: Hold oral home regimen,clears until assure oral intake safe given #3, accu checks w/ ISS. #7. Hypertension: Continue home regimen including amlodipine, chlorthalidone, as noted holding lisinopril,, PRN hydralazine. #8. Hyperlipidemia: Will continue patient on statin therapy. #9. Anxiety and depression: We will continue patient on citalopram regimen. #10. BPH: We will continue patient on Flomax regimen. #11. Allergic rhinitis: We will continue patient home fluticasone regimen. #12. Former tobacco use: Encourage continued tobacco cessation. #13. DVT prophylaxis: Lovenox. #14. CODE status: Patient HCPOA and living will are not in place however he notes that if he needed medical decisions made and was unable he would want his to be his medical decision-maker. Discussed CODE status at length including difference between FULL code, DNR-CCA and DNR-CC status. Following discussions about the differences in these status, requested Full Code status. 05/05/24 20:49: WBC 21.1 H, RBC 5.24, Hgb 17.4 H, Hct 50.2, MCV 95.8 H, MCH 33.2 H, MCHC 34.7, RDW Std Deviation 51.8 H, RDW Coeff of Tarik 14.6, Plt Count 284, MPV 10.4, Immature Gran % (Auto) 1.100 H, Neut % (Auto) 89.5 H, Lymph % (Auto) 3.8 L, [place] % (Auto) 5.3, Eos % (Auto) 0.1, Baso % (Auto) 0.2, Absolute Neuts (auto) 18.9 H, Absolute Lymphs (auto) 0.80 L, Nucleated RBC % 0, Sodium 131 L, Potassium 3.1 L, Chloride 96 L, Carbon Dioxide 29.0, Anion Gap 6, BUN 17, Creatinine 1.46 H, Estim Creat Clear Calc 52.40, Est GFR (MDRD) Af Amer 61, Est GFR (MDRD) Non-Af 50 L, BUN/Creatinine Ratio 11.6, Glucose 197 H, Calcium 9.3, Magnesium 2.3, Total Bilirubin 1.70 H, Direct Bilirubin 0.55 H, AST 17, ALT 39, Alkaline Phosphatase 103, Total Protein 7.6, Albumin 3.4, Globulin 4.2 05/05/24 22:06: Urine Color Yellow, Urine Clarity Cloudy, Urine pH 6.0, Ur Specific [place] 1.015, Urine Protein 100 H, Urine Glucose (UA) 1000 H, Urine Ketones 5 H, Urine Occult Blood 250 H, Urine Nitrite Positive H, Urine Bilirubin Negative, Urine Urobilinogen Normal, Ur Leukocyte Esterase 500 H, Urine RBC 10- 25 SEEN, Urine WBC 50-100 SEEN, Ur Squamous Epith Cells 0 SEEN, Urine Bacteria 3+, Urine Mucus 0 SEEN 05/05/24 22:41: Lactic Acid 1.8 05/06/24 00:22: POC Glucose 183 H 05/06/24 04:25: WBC 16.8 H, RBC 4.84, Hgb 16.0, Hct 46.5, MCV 96.1 H, MCH 33.1 H , MCHC 34.4, RDW Std Deviation 51.8 H, RDW Coeff of Tarik 14.6, Plt Count 255, MPV 10.5, Immature Gran % (Auto) 0.900, Neut % (Auto) 93.0 H, Lymph % (Auto) 4.0 L, [place] % (Auto) 1.9, Eos % (Auto) 0.1, Baso % (Auto) 0.1, Absolute Neuts (auto) 15.6 H, Absolute Lymphs (auto) 0.67 L, Nucleated RBC % 0, Sodium 136, Potassium 3.3 L, Chloride 99, Carbon Dioxide 26.0, Anion Gap 11, BUN 21 H, Creatinine 1.21, Estim Creat Clear Calc 62.38, Est GFR (MDRD) Af Amer 75, Est GFR (MDRD) Non-Af 62, BUN/Creatinine Ratio 17.4, Glucose 193 H, Calcium 8.9, Total Bilirubin 0.80, AST 19, ALT 31, Alkaline Phosphatase 93, Total Protein 7.1, Albumin 3.0 L, Globulin 4.1, Albumin/Globulin Ratio 0.7 L 05/06/24 06:41: POC Glucose 191 H
[2024-05-06] MEDS: Budesonide Respules 0.5 MG/2 ML AMPUL.NEB. INHALATION ×2 (07:57→21:22)
[2024-05-06 08:50] LABS: Phosphorus 1.2 mg/dL (2.5-4.9)
[2024-05-06] MEDS: Aspirin 81 MG TAB.CHEW PO (10:21)
[2024-05-06] MEDS: Citalopram 20 MG Tablet PO (10:21)
[2024-05-06] MEDS: Fluticasone 0.05% 1 SPRAY NASAL.SRY NASAL (10:22)
[2024-05-06] MEDS: Chlorthalidone 50 MG Tablet 25 MG PO (10:22)
[2024-05-06] MEDS: Potassium Chloride Oral Tablet 20 MEQ PO ×2 (10:23→21:17)
[2024-05-06] MEDS: amLODIPine 10 MG Tablet PO (10:23)
[2024-05-06] MEDS: Atorvastatin Calcium 40 MG Tablet PO (10:23)
[2024-05-06] MEDS: Enoxaparin 40 MG/0.4 ML Syringe SC (10:23)
[2024-05-06] MEDS: Pantoprazole Sodium 20 MG Tablet PO (10:23)
[2024-05-06] MEDS: Ceftriaxone 1 GM/50 ML BAG IV (10:57)
--- NOTE | 2024-05-06 11:00 | CASEMGMT ---
RN JANINA Face to Face with patient for initial transition planning/care coordination assessment. RN CM introduced self and role at [facility]. Patient lying in bed, alert and oriented. Patient willing to participate in assessment and is able to answer all questions appropriately. Care providers, pharmacy, and demographics verified. PCP: Jacob AGARWAL Specialists: none [facility] [place], [facility] Prescription [place] Living Will/HPOA: none LNOK: significant other Living Arrangements: Patient lives with significant other in single story home with none steps to enter. Patient is independent at home. Transportation: self, significant other DME/HHC: Patient has raised toilet seat and cane at home. No previous HHC or SNF. Patient wishes to discharge home, denies need for home health at this time. Patient states he has no further needs or concerns at this time. CM to follow for discharge planning needs that may arise. Disposition Plan: Patient to discharge home with family support and follow-up plans in place. Salud YING, RN, CM
[2024-05-06 11:54] LABS: Bedside Glucose 321 mg/dL (74-106)
[2024-05-06] MEDS: 0.9% Saline Lock 10 ML Syringe IV (13:14)
[2024-05-06 16:50] LABS: Bedside Glucose 252 mg/dL (74-106)
[2024-05-06] MEDS: Tamsulosin HCl 0.4 MG Capsule PO (21:17)
[2024-05-06] MEDS: Primidone 50 MG Tablet PO (21:17)
[2024-05-06 21:58] LABS: Bedside Glucose 412 mg/dL (74-106)
[2024-05-06] MEDS: Famotidine 200 MG/20 ML MDV 20 MG in 0.9% Normal Saline (Pres. free 8 ML 300 MG IV (22:00)
[2024-05-07] VITALS (7 sets, daily range): BP systolic 111–136; BP diastolic 76–101; PULSE 55–82; RESP 14–20; TEMP 36.6–37; O2SAT 95–100; BMI 28.0
[2024-05-07 06:26] LABS: Absolute Lymphocyte Count 0.87 X10^3/uL (0.83-4.51); Basophil# 0.05 X10^3/uL; Basophil% 0.3 % (0-1); Hematocrit 46.1 % (40-54); Hemoglobin 15.7 g/dL (13.0-16.5); Lymphocyte # 0.87 X10^3/ul (0.83-4.51); Mean Corp Hgb Conc 34.1 g/dL (32-36); Mean Corpuscular Hgb 32.2 pg (27.0-32.0); Mean Corpuscular Volume 94.5 fL (80-94); Mean Platelet Vol. 10.5 fl (6.2-12.0); Monocyte# 0.98 X10^3/uL; Monocyte% 5.7 % (0-10); NRBC Flagged by Analyzer 0 % (0-5); Neutrophil # 14.99 X10^3/uL (2.7-7.7); Platelet Count 311 K/mm3 (150-450); RBC Distribution Width CV 14.6 % (11.6-14.6); RBC Distribution Width SD 50.9 fl (35.1-43.9); Red Blood Count 4.88 M/mm3 (4.6-6.2); White Blood Count 17.2 K/mm3 (4.4-11.0)
[2024-05-07] MEDS: Insulin Lispro 100 UNIT/ML INSULN.PEN SC (06:40)
[2024-05-07 07:01] LABS: Anion Gap 7 (5-15); BUN 30 mg/dL (7-18); Calcium,Total 9.2 mg/dL (8.5-10.1); Chloride 100 mmol/L (98-107); EST Glomerular Filtration Rate 78 mL/min (>60); Est Glom Filt Rate - Afr Amer 94 mL/min (>60); Estimated Creatinine Clearance 74.93 ml/min; Glucose 217 mg/dL (74-106); Potassium 3.4 mmol/L (3.5-5.1); Sodium Level 134 mmol/L (136-145)
[2024-05-07] MEDS: Budesonide Respules 0.5 MG/2 ML AMPUL.NEB. INHALATION (07:13)
--- NOTE | 2024-05-07 08:03 | DCINST_ITS ---
Discharge Instructions Diet Discharge Diet: Low fat / Low cholesterol and 2000 mg Sodium Diet Activity Discharge Activity: Return to Normal Activity Weight Bearing Status: Weight bearing as tolerated Dressing / Incision Call your doctor if you observe: Fever of 101 or Higher, Coldness, Increased Pain, Numbness or Tingling, Change in Color, Inability to urinate, Inability to have a bowel movement, Shortness of breath, Dizziness, Fainting spells, Swelling in the ankles, Chest pain, Prolonged hiccupping, Increased palpitations (irregular heartbeat) and Calf discomfort Follow Up Care When: IN 2 WEEKS Test Results: Test results from this visit will be discussed in further detail at your follow- up appointment, if applicable. Discharge Plan Admission Admit Date/Time: 05/05/24 22:50 Primary Reason for Your Visit: Angioedema of tongue and Klebsiella pneumoniae UTI with bacteremia Attending Provider: Burt Dukes Primary Care Provider: [facility] Consulting Providers: Triny Trinidad Instructions Additional Instructions / Restrictions: Hold atorvastatin and citalopram for 5 days while taking ciprofloxacin to avoid drug drug interaction. Discharge Orders/Prescriptions Prescriptions: New prednisone 20 mg tablet 40 mg PO DAILY 5 Days Qty: 10 0RF ciprofloxacin HCl 500 mg tablet 500 mg PO BID 5 Days Qty: 10 0RF Continued glipizide 10 mg tablet 10 mg PO BID chlorthalidone 25 mg tablet 25 mg PO DAILY multivitamin Tablet 1 tab PO DAILY melatonin 3 mg Tablet 3 mg PO QHS tamsulosin 0.4 mg Capsule 0.4 mg PO QHS amlodipine 10 mg Tablet 10 mg PO DAILY guaifenesin 200 mg Tablet 200 mg PO Q4H PRN (Reason: Cough) albuterol sulfate [Ventolin HFA] 90 mcg/actuation HFA aerosol inhaler 1 inh inhalation BID pantoprazole 20 mg Tablet,Delayed Release (Dr/Ec) 20 mg PO DAILY fluticasone propionate 50 mcg/actuation [place],Suspension 1 spray INTRANASAL DAILY Rx Instructions: administer into each nostril mupirocin 2 % ointment 1 applic topical BID Qty: 22 0RF Rx Instructions: to affected open areas empagliflozin 25 mg tablet 12.5 mg PO DAILY alogliptin 25 mg tablet 25 mg PO DAILY primidone [Mysoline] 50 mg tablet 50 mg PO QHS aspirin 81 mg capsule 81 mg PO DAILY potassium chloride 20 mEq tablet,ER particles/crystals 20 meq PO BID Qty: 6 0RF Held citalopram 10 mg Tablet 20 mg PO DAILY Hold Instructions: Hold for 5 days while taking ciprofloxacin atorvastatin 40 mg PO DAILY Hold Instructions: Hold atorvastatin for 5 days while taking ciprofloxacin Discontinued nitrofurantoin macrocrystal [Macrodantin] 100 mg capsule 100 mg PO BID Rx Instructions: must administer with a meal/food Referrals / [facility] [[facility] - Disposition Disposition (needs filled in before D/C Order can be placed): Home, Self Care
--- NOTE | 2024-05-07 09:05 | DS.PCM_ITS ---
Providers Date of Admission: 05/05/24 Date of Discharge: 05/07/24 Primary Care Physician: [facility] Reason For Visit: UTI, ANGIOEDEMA Diagnosis Discharge Diagnosis (1) UTI (urinary tract infection): Status: Acute Code(s): N39.0 - Urinary tract infection, site not specified Plan The patient is a 73 y/o M came to ED with tongue swelling. In 2014 patient was admitted with angioedema with no definitive cause was found at that time. He he did not had history of angioedema before that and did not had any occurrence since then till the day of admission. Patient was started on nitrofurantoin for hematuria 1 day before admission by [facility]. He took 2 doses of nitrofurantoin and felt right side of tongue swelling. Patient denies any new medications other than nitrofurantoin though he is on lisinopril which she was not on 2014. Denies prior history of hives or asthma but has copd #1. Acute Complicated Urinary Tract Infection and bacteremia due to Klebsiella pneumoniae: Patient is admitted in PCU. UA shows nitrite positive, LE 500 WBC 5200 and RBC 10-25 cells. Patient has leukocytosis 21,000 improved to 16.8 thousand. On IV fluid. On IV ceftriaxone. blood cultures x 2 urine culture pending. Monitor intake and output. Patient stated that he had prostate spot that he was told. No indication of testing for PSA but advised to follow-up urologist as an outpatient. Lactic acid normal. Sepsis ruled out. 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 It is pansensitive except ampicillin. Patient follows urologist in [place]. Advised to follow. The patient is discharged on 5 more days of ciprofloxacin to complete total of 7 days of antibiotics. Patient has been afebrile during hospital stay. #2. CKD stage II: Patient admitted with creatinine 1.46, improved to 1.21. Baseline creatinine 0.98 on June 2023. Monitor kidney function #3. Atypical tongue swelling/angioedema with previous history of angioedema of unclear specific cause remotely 2015: Patient is stated in 2014 it was started after starting on medication which she does not remember. On IV Benadryl famotidine and IV Solu-Medrol x 2 doses given. C4, C1 esterase level, CH 50 and C1q ordered. 05/07: Tongue swelling has resolved. Patient is being discharged on prednisone 40 mg daily for 5 days. Patient on PPI. Labs of complement levels are pending #4. Hypokalemia: Admission K+ 3.1, magnesium level request, supplementation given, repeat level is still low 3.3. Serum magnesium level normal. Potassium replacement #5. COPD: On DuoNeb as needed. Not in exacerbation. \Temporally hold home inhaler regimen and in the interim will maintain on ATC budesonide therapy, PRN albuterol, HOB, IS parameters. #6. Diabetes mellitus type II: Hold oral home regimen,clears until assure oral intake safe given #3, accu checks w/ ISS. #7. Hypertension: Continue home regimen including amlodipine, chlorthalidone, as noted holding lisinopril,, PRN hydralazine. #8. Hyperlipidemia: Will continue patient on statin therapy. #9. Anxiety and depression: continue patient on citalopram regimen. #10. BPH: We will continue patient on Flomax regimen. #11. Allergic rhinitis: We will continue patient home fluticasone regimen. #12. Former tobacco use: Encourage continued tobacco cessation. #13. DVT prophylaxis: Lovenox. #14. CODE status: Patient HCPOA and living will are not in place however he notes that if he needed medical decisions made and was unable he would want his to be his medical decision-maker. Discussed CODE status at length including difference between FULL code, DNR-CCA and DNR-CC status. Following discussions about the differences in these status, requested Full Code status. Discharge medication reconciliation done. Discharge follow-up instructions completed. Discharge process discussed with the patient and all questions were answered to patient's satisfaction. Follow with PCP in 1 to 2 weeks Total time spent, exact 35 minutes on discharge meds reconciliation, examination, coordination of care with nurses and ancillary staff, review of imaging and blood test and discussion with the patient on follow-up instructions. 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 05/05/24 22:06 Urine, Clean Catch Urine Culture - Preliminary Gram negative abiel Laboratory Results 05/06/24 09:46: C1 Esterase Inhibitor Pending, Func C1 Esterase Inhib Pending, Complement C4 Pending, Tot Complement (CH50) Pending 05/06/24 11:25: POC Glucose 321 H 05/06/24 16:26: POC Glucose 252 H 05/06/24 21:14: POC Glucose 412 H 05/07/24 05:45: WBC 17.2 H, RBC 4.88, Hgb 15.7, Hct 46.1, MCV 94.5 H, MCH 32.2 H , MCHC 34.1, RDW Std Deviation 50.9 H, RDW Coeff of Tarik 14.6, Plt Count 311, MPV 10.5, Immature Gran % (Auto) 2.000 H, Neut % (Auto) 87.0 H, Lymph % (Auto) 5.0 L , Evangeline % (Auto) 5.7, Eos % (Auto) 0.0, Baso % (Auto) 0.3, Absolute Neuts (auto) 15.0 H, Absolute Lymphs (auto) 0.87, Nucleated RBC % 0, Sodium 134 L, Potassium 3.4 L, Chloride 100, Carbon Dioxide 27.0, Anion Gap 7, BUN 30 H, Creatinine 1.00, Estim Creat Clear Calc 74.93, Est GFR (MDRD) Af Amer 94, Est GFR (MDRD) Non-Af 78, BUN/Creatinine Ratio 30.0 H, Glucose 217 H, Calcium 9.2 Medications at Discharge Home Medications amlodipine 10 mg tablet 10 mg PO DAILY HTN 12/23/21 melatonin 3 mg tablet 3 mg PO QHS 12/23/21 multivitamin 1 tab PO DAILY 12/23/21 tamsulosin 0.4 mg capsule 0.4 mg PO QHS 12/23/21 citalopram 10 mg tablet 20 mg PO DAILY MOOD 02/21/22 guaifenesin 200 mg tablet 200 mg PO Q4H PRN Cough 02/21/22 albuterol sulfate 90 mcg/actuation aerosol inhaler (Ventolin HFA) 1 inh inhalation BID 03/24/22 fluticasone propionate 50 mcg/actuation nasal spray,suspension 1 spray intranasal DAILY 04/29/22 pantoprazole 20 mg tablet,delayed release 20 mg PO DAILY GERD 04/29/22 atorvastatin 40 mg PO DAILY 10/13/22 mupirocin 2 % topical ointment 1 applic topical BID #22 grams 11/05/22 chlorthalidone 25 mg tablet 25 mg PO DAILY 04/29/23 glipizide 10 mg tablet 10 mg PO BID 04/29/23 potassium chloride 20 mEq tablet,extended release(part/cryst) 20 meq PO BID #6 tabs 06/16/23 alogliptin 25 mg tablet 25 mg PO DAILY 05/05/24 aspirin 81 mg capsule 81 mg PO DAILY 05/05/24 empagliflozin 25 mg tablet 12.5 mg PO DAILY 05/05/24 primidone 50 mg tablet (Mysoline) 50 mg PO QHS 05/05/24 ciprofloxacin HCl 500 mg tablet 500 mg PO BID 5 days #10 tabs 05/07/24 prednisone 20 mg tablet 40 mg (2 x 20 mg) PO DAILY 5 days #10 tabs 05/07/24 Physical Exam Narrative Patient tongue swelling has resolved. Patient increased frequency urgency, dribbling and burning micturition and hematuria 1 day prior to [facility] when he was started on nitrofurantoin. No fever. Denies any perineal pain. Physical exam General: Alert, Oriented x3, Cooperative HEENT: Atraumatic, PERRLA, EOMI, Normocephalic Oral: There is submucosal edema on ventral surface of the tongue, sublingual vein. That has almost resolved. Neck: Supple, No JVD, Negative Carotid Bruits Chest wall/Lungs: Air entry diminished in bilateral lung bases. No crepitation/rhonchi Cardiovascular: Regular rate, Regular Rhythm, Normal S1, Normal S2, No M/G/R Abdomen: Bowel Sounds Present, Soft, Non Tender, Non-Distended : Dysuria has resolved. He had burning pain before coming here. No urethral discharge. No perineal tenderness. Scrotal exam normal. No renal angle tenderness. No suprapubic tenderness. Extremities: No edema, Capillary Refill Less than 3 Seconds Skin: No rashes, No breakdown Musculoskeletal: No Tenderness to Palpation of Joints or Extremities Neurological: Cranial nerves II-XII grossly intact, DTR 2+/4. No acute focal neurological deficit. Psych/Mental Status: Normal Affect, Appropriate. Weight / BMI Weight Weight: 201 lb 8.04 oz Body Mass Index (BMI) 28.0 ABG / Lab / Microbiology Data 05/07/24 05:45 05/07/24 05:45 Laboratory: Laboratory Results - last 24 hr 05/06/24 11:25: POC Glucose 321 H 05/06/24 16:26: POC Glucose 252 H 05/06/24 21:14: POC Glucose 412 H 05/07/24 05:45: WBC 17.2 H, RBC 4.88, Hgb 15.7, Hct 46.1, MCV 94.5 H, MCH 32.2 H , MCHC 34.1, RDW Std Deviation 50.9 H, RDW Coeff of Tarik 14.6, Plt Count 311, MPV 10.5, Immature Gran % (Auto) 2.000 H, Neut % (Auto) 87.0 H, Lymph % (Auto) 5.0 L , Evangeline % (Auto) 5.7, Eos % (Auto) 0.0, Baso % (Auto) 0.3, Absolute Neuts (auto) 15.0 H, Absolute Lymphs (auto) 0.87, Nucleated RBC % 0, Sodium 134 L, Potassium 3.4 L, Chloride 100, Carbon Dioxide 27.0, Anion Gap 7, BUN 30 H, Creatinine 1.00, Estim Creat Clear Calc 74.93, Est GFR (MDRD) Af Amer 94, Est GFR (MDRD) Non-Af 78, BUN/Creatinine Ratio 30.0 H, Glucose 217 H, Calcium 9.2 Microbiology: Microbiology 05/05/24 22:41 Blood Culture (Wb) - Anticubital Right Blood Culture - 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 * Patients 75 years or YOUNGER should receive HIGH intensity statin dose unless contraindicated. You will be required to document reason for non-treatment if statin daily dose does not meet guidelines. HIGH DOSE STATIN THERAPY DAILY Atorvastatin > than or = to 40 mg Rosuvastatin > than or = to 20 mg Amlodipine + Atorvastatin > than or = to 2.5/40 mg Ezetimibe + Simvastatin 10/80 mg Simvastatin 80mg Discharge Plan Admission Admit Date/Time: 05/05/24 22:50 Primary Reason for Your Visit: Angioedema of tongue and Klebsiella pneumoniae UTI with bacteremia Attending Provider: Burt Dukes Primary Care Provider: [facility],[place] Consulting Providers: White,Triny L Instructions Additional Instructions / Restrictions: Hold atorvastatin and citalopram for 5 days while taking ciprofloxacin to avoid drug drug interaction. Discharge Orders/Prescriptions Prescriptions: New prednisone 20 mg tablet 40 mg PO DAILY 5 Days Qty: 10 0RF ciprofloxacin HCl 500 mg tablet 500 mg PO BID 5 Days Qty: 10 0RF Continued glipizide 10 mg tablet 10 mg PO BID chlorthalidone 25 mg tablet 25 mg PO DAILY multivitamin Tablet 1 tab PO DAILY melatonin 3 mg Tablet 3 mg PO QHS tamsulosin 0.4 mg Capsule 0.4 mg PO QHS amlodipine 10 mg Tablet 10 mg PO DAILY guaifenesin 200 mg Tablet 200 mg PO Q4H PRN (Reason: Cough) albuterol sulfate [Ventolin HFA] 90 mcg/actuation HFA aerosol inhaler 1 inh inhalation BID pantoprazole 20 mg Tablet,Delayed Release (Dr/Ec) 20 mg PO DAILY fluticasone propionate 50 mcg/actuation [place],Suspension 1 spray INTRANASAL DAILY Rx Instructions: administer into each nostril mupirocin 2 % ointment 1 applic topical BID Qty: 22 0RF Rx Instructions: to affected open areas empagliflozin 25 mg tablet 12.5 mg PO DAILY alogliptin 25 mg tablet 25 mg PO DAILY primidone [Mysoline] 50 mg tablet 50 mg PO QHS aspirin 81 mg capsule 81 mg PO DAILY potassium chloride 20 mEq tablet,ER particles/crystals 20 meq PO BID Qty: 6 0RF Held citalopram 10 mg Tablet 20 mg PO DAILY Hold Instructions: Hold for 5 days while taking ciprofloxacin atorvastatin 40 mg PO DAILY Hold Instructions: Hold atorvastatin for 5 days while taking ciprofloxacin Discontinued nitrofurantoin macrocrystal [Macrodantin] 100 mg capsule 100 mg PO BID Rx Instructions: must administer with a meal/food Referrals / Follow [facility] [facility] [[facility] [place]] - Disposition Disposition (needs filled in before D/C Order can be placed): Home, Self Care Charges/Coding Visit Charges Inpatient E&M: 05599 Disch Hosp >30min
[2024-05-07] MEDS: Ceftriaxone 1 GM/50 ML BAG IV (09:13)
[2024-05-07] MEDS: Chlorthalidone 50 MG Tablet 25 MG PO (09:16)
[2024-05-07] MEDS: Enoxaparin 40 MG/0.4 ML Syringe SC (09:16)
[2024-05-07] MEDS: Citalopram 20 MG Tablet PO (09:16)
[2024-05-07] MEDS: amLODIPine 10 MG Tablet PO (09:16)
[2024-05-07] MEDS: Aspirin 81 MG TAB.CHEW PO (09:16)
[2024-05-07] MEDS: Pantoprazole Sodium 20 MG Tablet PO (09:16)
[2024-05-07] MEDS: Potassium Chloride Oral Tablet 20 MEQ PO (09:17)
[2024-05-07] MEDS: Fluticasone 0.05% 1 SPRAY NASAL.SRY NASAL (09:17)
[2024-05-07] MEDS: Atorvastatin Calcium 40 MG Tablet PO (09:18)
[2024-05-07 11:38] LABS: Bedside Glucose 223 mg/dL (74-106)
[2024-05-09 14:09] LABS: Complement CH50 55 U/mL (>41)
[2024-05-10 13:08] LABS: C1 EST Inhibitor, Functional >110 (.); C1 Esterase Inhibitor, Quant 36 mg/dL (21-39)
== END 2024-05-07 11:01 | disposition home or self-care (01) | DRG 690 ==
LOC: ED 22:55 → PCU 23:21
PROVIDERS: Admitting Provider Family Medicine; Emergency Provider Emergency Medicine; Visit Provider Internal Medicine
DX: N39.0 Urinary tract infection, site not specified (principal); E11.22 Type 2 diabetes mellitus with diabetic chronic kidney disease; E87.6 Hypokalemia; E78.5 Hyperlipidemia, unspecified; B96.1 Klebsiella pneumoniae [K. pneumoniae] as the cause of diseases classified elsewhere; Z99.81 Dependence on supplemental oxygen; J44.9 Chronic obstructive pulmonary disease, unspecified; F32.A Depression, unspecified; I12.9 Hypertensive chronic kidney disease with stage 1 through stage 4 chronic kidney disease, or unspecified chronic kidney disease; N18.2 Chronic kidney disease, stage 2 (mild); J30.9 Allergic rhinitis, unspecified; F41.9 Anxiety disorder, unspecified; K21.9 Gastro-esophageal reflux disease without esophagitis; K14.8 Other diseases of tongue; Z79.84 Long term (current) use of oral hypoglycemic drugs; Z87.891 Personal history of nicotine dependence; Z79.899 Other long term (current) drug therapy; N40.0 Benign prostatic hyperplasia without lower urinary tract symptoms; Z79.82 Long term (current) use of aspirin; Z90.49 Acquired absence of other specified parts of digestive tract; T78.3XXA Angioneurotic edema, initial encounter
CPT/HCPCS: 36415; 80048; 80053; 80076; 81001; 82962; 83605; 83735; 84100; 85025; 86160; 86161; 86162; 87040; 87077; 87086; 87088; 87186; 94640; 94668; 99285; J7030; A4216; J3490

== ENCOUNTER 2024-05-16 13:18 | Emergency (ER) | payer OTHER, SELFPAY ==
[2022-04-22 08:14] VITALS: BMI 30.6
[2024-05-16 13:20] VITALS: BP 108/71; PULSE 91; RESP 18; TEMP 36.4; O2SAT 95; BMI 28.1
--- NOTE | 2024-05-16 14:41 | EX.ED.DYSGE1 ---
HPI History of Present Illness Chief Complaint: Complaint PFSH PFSH Medical History Prostate disease Dietary restriction Lipoma of back Sebaceous cyst Aneurysm Anxiety Excessive bleeding Chronic cough History of edema History of stress test History of echocardiogram Degenerative joint disease of hand Hyperlipidemia Benign essential hypertension Wears hearing aid Wears glasses Wears dentures Depression Alcohol use Diabetes History of steroid therapy Arthritis Hepatitis Easy bruising Gastric reflux Shortness of breath on exertion On home oxygen therapy Leg cramps Former smoker Hypertension COPD (chronic obstructive pulmonary disease) Smoking greater than 40 pack years Home Medications ?Medication ?Instructions ?Recorded ?Last Taken ?Type amlodipine 10 mg tablet 10 mg PO DAILY HTN 12/23/21 Unknown History melatonin 3 mg tablet 3 mg PO QHS 12/23/21 Unknown History multivitamin 1 tab PO DAILY 12/23/21 Unknown History tamsulosin 0.4 mg capsule 0.4 mg PO QHS 12/23/21 Unknown History citalopram 10 mg tablet 20 mg PO DAILY MOOD 02/21/22 Unknown History guaifenesin 200 mg tablet 200 mg PO Q4H PRN Cough 02/21/22 Unknown History albuterol sulfate 90 mcg/actuation 1 inh inhalation BID 03/24/22 07/01/23 History aerosol inhaler (Ventolin HFA) fluticasone propionate 50 1 spray intranasal DAILY 04/29/22 Unknown History mcg/actuation nasal spray,suspension pantoprazole 20 mg tablet,delayed 20 mg PO DAILY GERD 04/29/22 Unknown History release atorvastatin 40 mg PO DAILY 10/13/22 Unknown History mupirocin 2 % topical ointment 1 applic topical BID #22 grams 11/05/22 Unknown Rx chlorthalidone 25 mg tablet 25 mg PO DAILY 04/29/23 Unknown History glipizide 10 mg tablet 10 mg PO BID 04/29/23 Unknown History potassium chloride 20 mEq 20 meq PO BID #6 tabs 06/16/23 Unknown Rx tablet,extended release(part/cryst) alogliptin 25 mg tablet 25 mg PO DAILY 05/05/24 Unknown History aspirin 81 mg capsule 81 mg PO DAILY 05/05/24 Unknown History empagliflozin 25 mg tablet 12.5 mg PO DAILY 05/05/24 Unknown History primidone 50 mg tablet (Mysoline) 50 mg PO QHS 05/05/24 Unknown History ciprofloxacin HCl 500 mg tablet 500 mg PO BID 5 days #10 tabs 05/07/24 Unknown Rx prednisone 20 mg tablet 40 mg (2 x 20 mg) PO DAILY 5 days 05/07/24 Unknown Rx #10 tabs cephalexin 500 mg capsule 500 mg PO TID 7 days #21 caps 05/16/24 Unknown Rx Allergy/AdvReac Type Severity Reaction Status Date / Time adhesive tape AdvReac Intermediate Rash Verified 05/16/24 13:19 gabapentin AdvReac Unknown PT UNSURE Verified 05/16/24 13:19 OF REACTION rosuvastatin AdvReac Unknown PT UNSURE Verified 05/16/24 13:19 OF REACTION hydroxyzine AdvReac NEEDS Verified 05/16/24 13:19 FOLLOW-UP Family History Father Cancer Heart disease Mother Heart disease Myocardial infarction Surgical History History of excision of mass History of cataract surgery History of esophagogastroduodenoscopy (EGD) Hx of colonoscopy History of hand surgery Hx of appendectomy H/O wrist surgery Social History household members: spouse Smoking Status: Former smoker quit date: 09/26/21 pack-years: 90 Tobacco: How many years used: 60 alcohol intake: former substance use type: does not use EXAM Physical Exam Const Vital Signs: 05/16/24 13:20 05/16/24 16:53 05/16/24 17:56 Temperature 97.6 F L 97.8 F Temperature Source Temporal Pulse Rate 91 69 69 Respiratory Rate 18 16 16 Blood Pressure 108/71 124/78 H 124/78 H Blood Pressure Mean 83 93 93 Pulse Ox 95 94 94 Oxygen Delivery Method Room Air Room Air MDM MDM MDM Narrative Medical decision making narrative: HISTORY OF PRESENT ILLNESS: 73-year-old male presents with concern for inability to urinate. Notes has history of prostate problems, notes hx of prostate cancer that has yet to be treated. He further states he has no new back pain. Notes is gone on for couple weeks where he feels fullness in his bladder, incomplete emptying and increased frequency. Patient denies any saddle anesthesia, urinary retention, bowel or bladder incontinence, lower extremity weakness, fever or IV drug use, no recent spinal manipulation or surgery, no recent urinary catheterization. REVIEW OF SYSTEMS: Pertinent positives: Lower abdominal pain, inability to urinate Pertinent negatives: Back pain PHYSICAL EXAM: Nursing triage notes reviewed, Vital signs reviewed Constitutional: please see [facility] HENT: MMM Eyes: Pupils equal round and reactive to light, Extraocular muscles intact Neck: No stridor, no JVD, full neck ROM Lungs: Clear to auscultation, No wheezing or rales. No increased work of breathing, no conversational dyspnea, no accessory muscle use, no nasal flaring. No respiratory distress noted Heart: Regular rate and rhythm, No murmurs, No rubs and No gallops, 2+ distal pulses (radial, femoral, posterior tibial) in all extremities Abdomen: Soft, there is no tenderness, rigidity, rebound or guarding, no obvious peritoneal signs, no palpable pulsatile abdominal masses, no auscultated abdominal bruit : No CVAT Extremities: No edema Neuro: No focal neurological deficits, cranial nerves II through XII intact, 5/5 strength in all extremities. Intact sensation to light touch in all extremities, 2+ reflexes bilateral patella tendons. Normal gait. No ataxia. Skin: No rash or lesions noted MEDICAL DECISION MAKING: Chief Complaint: Inability to urinate External records reviewed: Factors affecting care: UTI, prostate cancer, COPD, tobacco abuse, hyperlipidemia, GERD, hypertension Social determinants of health: Tobacco abuse History obtained from others: none Consults: none [facility] Narrative: Patient was hemodynamically stable, afebrile, nontoxic-appearing. Exam with suprapubic fullness. Abdomen was not peritonitic Postvoid bladder scan showed evidence of urinary retention 472 I considered the following differential diagnosis: Acute urinary retention, UTI, neurogenic bladder, space-occupying lesion of the spine ALL IMAGES (IF OBTAINED) HAVE BEEN PERSONALLY REVIEWED AND INTERPRETED BY MYSELF. CBC with baseline leukocytosis, no significant anemia or thrombocytopenia Urinalysis without evidence of infection, will send for culture BMP with mild hyponatremia, mild hypokalemia, no evidence of metabolic acidosis or endorgan hypoperfusion, no evidence of acute kidney injury CT scan abdomen pelvis shows no evidence of intra-abdominal pathology such as surgical pathology. The synthesis of the patient's history, physical exam, labs and would suggest likely urinary retention secondary to prostate enlargement. There is no evidence of space-occupying lesion of the spine physical exam or history. Patient is appropriate discharge home with prophylactic antibiotics and close outpatient urology follow-up. The patient and/or family, caregivers express understanding. The patient and/or family, caregivers agrees with the plan. Shared decision making: I will have a discussion with the patient and or visitors regarding risk/benefits of further testing or admission. They will be made aware of of the risk/benefits inherent in this decision they will be given the opportunity to voice understanding. Total critical care time today provided was at least 0 minutes. This excludes separately billable procedures. Critical care time (if documented) is secondary to the patient having high probability of clinically significant/life threatening deterioration in the patient's condition which required my urgent intervention. Impression: 1. Acute urinary retention 2. History of prostate cancer Dispo: Discharge home This note was generated with [employer] dictation software. It may contain incorrect words, spelling, and punctuation that were not noted in review of the chart prior to signing. Lab Data Labs: Laboratory Results - last 24 hr 05/16/24 05/16/24 15:00 16:10 WBC 16.2 H RBC 4.99 Hgb 16.3 Hct 46.4 MCV 93.0 MCH 32.7 H MCHC 35.1 RDW Std Deviation 47.8 H RDW Coeff of Tarik 14.1 Plt Count 347 MPV 9.5 Immature Gran % (Auto) 1.200 H Neut % (Auto) 80.6 H Lymph % (Auto) 11.4 L Simpson % (Auto) 5.6 Eos % (Auto) 0.8 Baso % (Auto) 0.4 Absolute Neuts (auto) 13.1 H Absolute Lymphs (auto) 1.84 Nucleated RBC % 0 Sodium 135 L Potassium 3.4 L Chloride 97 L Carbon Dioxide 27.0 Anion Gap 11 BUN 24 H Creatinine 1.13 Estim Creat Clear Calc 66.37 Est GFR (MDRD) Af Amer 81 Est GFR (MDRD) Non-Af 67 BUN/Creatinine Ratio 21.2 H Glucose 333 H Calcium 9.1 Urine Color Yellow Urine Clarity Clear Urine pH 6.5 Ur Specific [place] 1.010 Urine Protein Negative Urine Glucose (UA) 1000 H Urine Ketones Negative Urine Occult Blood Negative Urine Nitrite Negative Urine Bilirubin Negative Urine Urobilinogen Normal Ur Leukocyte Esterase Negative Urine RBC 0 SEEN Urine WBC 0 SEEN Ur Squamous Epith Cells 0 SEEN Urine Bacteria 0 SEEN Urine Mucus 0 SEEN Radiography Diagnostic Testing: Clinical Impression(s) from Imaging Studies Abdomen/Pelvis CT 05/16/24 15:57 IMPRESSION: Enlarged prostate encroaching upon the base of the bladder which contains Briggs catheter Tiny right renal cyst which will not require additional imaging. Severely contracted thick-walled gallbladder of uncertain clinical significance. Multilobulated distal abdominal aortic aneurysm with largest dimension 3.4 x 3.3 cm Electronically Signed: Gorge Armstrong MD at 17:13 EDT Reading Location ID and State: [facility] / MD Tel , Service support , Discharge Plan Triage Chief Complaint: Complaint ED Provider: Moustapha Jaramillo Dx/Rx/DC Orders Clinical Impression: Urinary retention Instructions: ED Urinary Retention, Male Prescriptions: New cephalexin 500 mg capsule 500 mg PO TID 7 Days Qty: 21 0RF No Action glipizide 10 mg tablet 10 mg PO BID chlorthalidone 25 mg tablet 25 mg PO DAILY multivitamin Tablet 1 tab PO DAILY melatonin 3 mg Tablet 3 mg PO QHS tamsulosin 0.4 mg Capsule 0.4 mg PO QHS amlodipine 10 mg Tablet 10 mg PO DAILY citalopram 10 mg Tablet 20 mg PO DAILY guaifenesin 200 mg Tablet 200 mg PO Q4H PRN (Reason: Cough) albuterol sulfate [Ventolin HFA] 90 mcg/actuation HFA aerosol inhaler 1 inh inhalation BID pantoprazole 20 mg Tablet,Delayed Release (Dr/Ec) 20 mg PO DAILY fluticasone propionate 50 mcg/actuation [place],Suspension 1 spray INTRANASAL DAILY Rx Instructions: administer into each nostril atorvastatin 40 mg PO DAILY mupirocin 2 % ointment 1 applic topical BID Qty: 22 0RF Rx Instructions: to affected open areas empagliflozin 25 mg tablet 12.5 mg PO DAILY alogliptin 25 mg tablet 25 mg PO DAILY primidone [Mysoline] 50 mg tablet 50 mg PO QHS aspirin 81 mg capsule 81 mg PO DAILY prednisone 20 mg tablet 40 mg PO DAILY 5 Days Qty: 10 0RF ciprofloxacin HCl 500 mg tablet 500 mg PO BID 5 Days Qty: 10 0RF potassium chloride 20 mEq tablet,ER particles/crystals 20 meq PO BID Qty: 6 0RF [facility] Provider[facility] Referrals: Kwadwo Kyle MD [Med Staff - Active Staff] - [facility] [Primary [facility] - Activity Restrictions/Additional Instructions: Thank you for trusting us with your care today! Please take Tylenol (2 pills, 650 mg), ibuprofen (2 pills, 400 mg) every 6 hours as needed for pain and fever control. Please take Keflex as prescribed and finish entire course Please maintain your Briggs catheter until you follow-up with urology. Please return to the emergency department if your symptoms change or worsen. Specific if you notice no urine in your Briggs bag over a 12-hour period, you develop fever, you develop vomiting, start feeling weak dizzy or lightheaded. Please follow with your primary care physician and urology for further outpatient evaluation and management. Print Language: Vietnamese Disposition Disposition: Home, Self Care Discharge Date/Time: 05/16/24 18:22
[2024-05-16 15:07] LABS: Bacteria 0 SEEN /hpf (None Seen); Mucous, Urine 0 SEEN /hpf (<or=2+); Red Blood Cells-Urine 0 SEEN /hpf (0-5); Squamous Epithelial Cells - UA 0 SEEN /hpf (0-5); White Blood Cells 0 SEEN /hpf (0-5)
[2024-05-16 15:43] LABS: Color, Urine Yellow (Yellow); Glucose, Dipstick 1000 mg/dl (Normal); Ketone-Dipstick Negative (Negative); Leukocyte Esterase-Dipstick Negative /ul (Negative); Nitrite-Dipstick Negative (Negative); Occult Blood-Urine Negative /ul (Negative); Protein-Dipstick Negative (Negative); Urine Bilirubin Dipstick Negative (Negative); Urine Clarity Clear (Clear); Urine Urobilinogen Normal (Normal); Urine pH 6.5 (5.0 - 8.0)
--- NOTE | 2024-05-16 15:57 | CT_ITS ---
STUDY: CT ABDOMEN AND PELVIS WITHOUT CONTRAST REASON FOR EXAM: Male, 73 years old. urinary retention RADIATION DOSAGE (If Supplied By Facility): CTDIvol = ( 14.73 ) mGy, DLP = ( 747.17 ) mGycm TECHNIQUE: Transaxial images were obtained from the dome of the diaphragm to the symphysis pubis without oral contrast, and without intravenous contrast. Sagittal and coronal images were reconstructed. Individualized dose optimization techniques were used for this CT. COMPARISON: None. FINDINGS: The visualized lung bases are unremarkable. The visualized portions of the heart are within normal limits. Normal liver. Severely contracted thick-walled gallbladder without calcified stones possibly physiologic however if concern for gallbladder disease ultrasound recommended. Normal spleen. Normal pancreas. Normal bilateral adrenal glands. No evidence for renal obstruction. There is a tiny cyst in the right kidney which will not require additional imaging. . Normal visualized stomach. Normal small intestine. Normal colon. No evidence for acute appendicitis Atherosclerotic changes of the aorta with multilobulated aneurysm with most severe dilatation measuring approximately 3.4 x 3.3 cm. Normal inferior vena cava. Normal retroperitoneum. Nonspecific enlargement of prostate encroaching upon the base of the bladder which contains Briggs catheter. Normal abdominal wall. Normal osseous structures. CT/Abdomen/Pelvis without Cont IMPRESSION: Enlarged prostate encroaching upon the base of the bladder which contains Briggs catheter Tiny right renal cyst which will not require additional imaging. Severely contracted thick-walled gallbladder of uncertain clinical significance. Multilobulated distal abdominal aortic aneurysm with largest dimension 3.4 x 3.3 cm Electronically Signed: Gorge Armstrong MD at 17:13 EDT ,
--- NOTE | 2024-05-16 15:57 | EKG12_ITS ---
Test Reason : GENERAL Blood Pressure : / mmHG Vent. Rate : 070 BPM Atrial Rate : 070 BPM P-R Int : 152 ms QRS Dur : 080 ms QT Int : 428 ms P-R-T Axes : 056 025 057 degrees QTc Int : 462 ms Normal sinus rhythm Normal ECG Confirmed by Delmar Vela ([id number]), slot editor TERA CAMPBELL ([id number]) on 05/17/2024 12:53:55 PM Referred By: Confirmed By:Delmar Vela
[2024-05-16 16:18] LABS: Absolute Lymphocyte Count 1.84 X10^3/uL (0.83-4.51); Absolute Neutrophil Count 13.1 X10^3/uL (2.0-7.7); Basophil# 0.06 X10^3/uL; Basophil% 0.4 % (0-1); Eosinophil# 0.13 X10^3/uL; Eosinophils% 0.8 % (0-5); Hematocrit 46.4 % (40-54); Hemoglobin 16.3 g/dL (13.0-16.5); Lymphocyte # 1.84 X10^3/ul (0.83-4.51); Lymphocyte % 11.4 % (19-41); Mean Corp Hgb Conc 35.1 g/dL (32-36); Mean Corpuscular Hgb 32.7 pg (27.0-32.0); Mean Platelet Vol. 9.5 fl (6.2-12.0); Monocyte# 0.91 X10^3/uL; Monocyte% 5.6 % (0-10); NRBC Flagged by Analyzer 0 % (0-5); Neutrophil # 13.08 X10^3/uL (2.7-7.7); Neutrophil % 80.6 % (47-70); Platelet Count 347 K/mm3 (150-450); RBC Distribution Width CV 14.1 % (11.6-14.6); RBC Distribution Width SD 47.8 fl (35.1-43.9); Red Blood Count 4.99 M/mm3 (4.6-6.2); White Blood Count 16.2 K/mm3 (4.4-11.0)
[2024-05-16 16:37] LABS: Anion Gap 11 (5-15); BUN 24 mg/dL (7-18); BUN/Creat Ratio 21.2 RATIO (10-20); Calcium,Total 9.1 mg/dL (8.5-10.1); Chloride 97 mmol/L (98-107); Creatinine, Serum 1.13 mg/dL (0.70-1.30); EST Glomerular Filtration Rate 67 mL/min (>60); Est Glom Filt Rate - Afr Amer 81 mL/min (>60); Estimated Creatinine Clearance 66.37 ml/min; Glucose 333 mg/dL (74-106); Potassium 3.4 mmol/L (3.5-5.1); Sodium Level 135 mmol/L (136-145)
[2024-05-16 16:53] VITALS: BP 124/78; PULSE 69; RESP 16; O2SAT 94
[2024-05-16 17:56] VITALS: BP 124/78; PULSE 69; RESP 16; TEMP 36.6; O2SAT 94
--- NOTE | 2024-05-16 18:07 | NURSING ---
aguilera care teaching given to pt and . pt aguilera changed to leg bag for pt to dress for dc.
== END 2024-05-16 18:22 | disposition home or self-care (01) ==
PROVIDERS: Emergency Provider Emergency Medicine; Visit Provider Emergency Medicine
DX: N40.1 Benign prostatic hyperplasia with lower urinary tract symptoms (principal); J44.9 Chronic obstructive pulmonary disease, unspecified; C61 Malignant neoplasm of prostate; E11.9 Type 2 diabetes mellitus without complications; R33.8 Other retention of urine; R35.0 Frequency of micturition; R39.14 Feeling of incomplete bladder emptying; I10 Essential (primary) hypertension; Z79.51 Long term (current) use of inhaled steroids; Z79.82 Long term (current) use of aspirin; Z79.84 Long term (current) use of oral hypoglycemic drugs; Z79.899 Other long term (current) drug therapy; Z87.891 Personal history of nicotine dependence
CPT/HCPCS: 51702; 74176; 80048; 81001; 85025; 87086; 93005; 99283; A4216

== ENCOUNTER 2024-05-24 03:51 | Emergency (ER) | payer MEDICARE, SELFPAY ==
[2022-04-22 08:14] VITALS: BMI 30.6
[2024-05-24 03:52] VITALS: TEMP 36.7; BMI 27.8
[2024-05-24 03:55] VITALS: BP 156/81; PULSE 91; RESP 16; O2SAT 97
[2024-05-24] MEDS: Lidocaine Jelly 2% 20 ML Syringe (URO-JET) 1 APPLIC TOPICAL (04:17)
--- NOTE | 2024-05-24 04:32 | EX.ED.DYSGE1 ---
HPI History of Present Illness Chief Complaint: Complaint Informant: parent and spouse/S.O. Narrative Narrative: Patient is a 73-year-old male with history of COPD and hypertension who also reports issues with his prostate. He states he recently had a Briggs catheter placed secondary to urinary retention. He follows with urology on Thursday and underwent a voiding trial. He states he was able to pass this in the office and therefore the catheter was removed and he was discharged home. He states however since returning home he is only been able to dribble and not had a normal urination for over 6 hours. He states that he is developing abdominal pain and distention and it feels like he needs a Briggs catheter placed once again and therefore comes to the hospital for treatment [facility] Medical History Prostate disease Dietary restriction Lipoma of back Sebaceous cyst Aneurysm Anxiety Excessive bleeding Chronic cough History of edema History of stress test History of echocardiogram Degenerative joint disease of hand Hyperlipidemia Benign essential hypertension Wears hearing aid Wears glasses Wears dentures Depression Alcohol use Diabetes History of steroid therapy Arthritis Hepatitis Easy bruising Gastric reflux Shortness of breath on exertion On home oxygen therapy Leg cramps Former smoker Hypertension COPD (chronic obstructive pulmonary disease) Smoking greater than 40 pack years Home Medications ?Medication ?Instructions ?Recorded ?Last Taken ?Type amlodipine 10 mg tablet 10 mg PO DAILY HTN 12/23/21 Unknown History melatonin 3 mg tablet 3 mg PO QHS 12/23/21 Unknown History multivitamin 1 tab PO DAILY 12/23/21 Unknown History tamsulosin 0.4 mg capsule 0.4 mg PO QHS 12/23/21 Unknown History citalopram 10 mg tablet 20 mg PO DAILY MOOD 02/21/22 Unknown History guaifenesin 200 mg tablet 200 mg PO Q4H PRN Cough 02/21/22 Unknown History albuterol sulfate 90 mcg/actuation 1 inh inhalation BID 03/24/22 07/01/23 History aerosol inhaler (Ventolin HFA) fluticasone propionate 50 1 spray intranasal DAILY 04/29/22 Unknown History mcg/actuation nasal spray,suspension pantoprazole 20 mg tablet,delayed 20 mg PO DAILY GERD 04/29/22 Unknown History release atorvastatin 40 mg PO DAILY 10/13/22 Unknown History mupirocin 2 % topical ointment 1 applic topical BID #22 grams 11/05/22 Unknown Rx chlorthalidone 25 mg tablet 25 mg PO DAILY 04/29/23 Unknown History glipizide 10 mg tablet 10 mg PO BID 04/29/23 Unknown History potassium chloride 20 mEq 20 meq PO BID #6 tabs 06/16/23 Unknown Rx tablet,extended release(part/cryst) alogliptin 25 mg tablet 25 mg PO DAILY 05/05/24 Unknown History aspirin 81 mg capsule 81 mg PO DAILY 05/05/24 Unknown History empagliflozin 25 mg tablet 12.5 mg PO DAILY 05/05/24 Unknown History primidone 50 mg tablet (Mysoline) 50 mg PO QHS 05/05/24 Unknown History ciprofloxacin HCl 500 mg tablet 500 mg PO BID 5 days #10 tabs 05/07/24 Unknown Rx prednisone 20 mg tablet 40 mg (2 x 20 mg) PO DAILY 5 days 05/07/24 Unknown Rx #10 tabs cephalexin 500 mg capsule 500 mg PO TID 7 days #21 caps 05/16/24 Unknown Rx Allergy/AdvReac Type Severity Reaction Status Date / Time adhesive tape AdvReac Intermediate Rash Verified 05/24/24 03:51 gabapentin AdvReac Unknown PT UNSURE Verified 05/24/24 03:51 OF REACTION rosuvastatin AdvReac Unknown PT UNSURE Verified 05/24/24 03:51 OF REACTION hydroxyzine AdvReac NEEDS Verified 05/24/24 03:51 FOLLOW-UP Family History Father Cancer Heart disease Mother Heart disease Myocardial infarction Surgical History History of excision of mass History of cataract surgery History of esophagogastroduodenoscopy (EGD) Hx of colonoscopy History of hand surgery Hx of appendectomy H/O wrist surgery Social History household members: spouse Smoking Status: Former smoker quit date: 09/26/21 pack-years: 90 Tobacco: How many years used: 60 alcohol intake: former substance use type: does not use ROS ROS ED Constitutional Constitutional ED: Denies chills or fever(s) ENT ENT ED: Denies sore throat Cardiovascular Cardiovascular: Denies chest pain Respiratory/Chest Respiratory/Chest: Denies cough or dyspnea Gastrointestinal Gastrointestinal: Reports abdominal pain; Denies diarrhea, nausea or vomiting Genitourinary Genitourinary ED: Reports other Details: Urinary retention Musculoskeletal Musculoskeletal: Denies back pain or myalgias Integumentary Denies rash Neurologic Neurologic: Denies headache(s) Hematologic/Lymphatic Hematologic/Lymphatic: Denies easy bleeding or easy bruising EXAM Physical Exam Const Vital Signs: 05/24/24 03:52 05/24/24 03:55 05/24/24 04:48 Temperature 98.1 F 97.8 F Temperature Source Oral Pulse Rate 91 82 Respiratory Rate 16 16 Blood Pressure 156/81 H 123/76 H Blood Pressure Mean 106 91 Pulse Ox 97 99 Positive well nourished and well developed General Appearance ED: well developed; Negative for pallor HEENT HEENT Narrative: Normocephalic atraumatic Eyes PERRL and EOMs intact bilaterally General Eye ED: Negative for scleral icterus Neck supple Resp normal respiratory effort Resp Narrative: Breath sounds are diminished throughout with diffuse expiratory wheeze consistent with history of COPD but no signs of respiratory distress Cardio regular rate and regular rhythm GI GI Narrative: Abdomen is distended with organomegaly noted in the suprapubic/midline lower abdomen consistent with a distended bladder. There is pain on palpation at the site. The remainder the abdomen is soft nontender nondistended. Bowel sounds are normal active. No pulsatile mass Auscultation: normoactive bowel sounds Palpation: soft Back/Spine no CVA tenderness Extremity normal to inspection Neuro oriented x3, CN's II-XII intact bilaterally and no sensory deficits noted Sensorium / Orientation: alert Motor Exam: strength 5/5 throughout Psych mental status grossly normal Skin no rashes or lesions noted General Skin Exam: Negative for jaundice or pallor MDM MDM MDM Narrative Medical decision making narrative: Patient presented to the ER hypertensive otherwise with stable vitals. He reported a recent history of urinary retention and has been unable to urinate at home. Therefore history and exam is most consistent with acute urinary retention. I have low concern for UTI as patient states is only been 6 to 10 hours since his last urination. I also have low concern for acute kidney injury based on this timeframe. Therefore I do not feel there is need for imaging or laboratory studies but simply a Briggs catheter will be placed. Once this was done the patient drained roughly 1200 mL of urine that did not appear bloody or infected. After doing so he reported feeling much better and the abdominal distention and organomegaly resolved as well. Therefore at this time as his urinary retention has been resolved he can keep the Briggs catheter in place and follow-up with urology on an outpatient basis History & Record Review Discussion w/independent historian: Patient and Significant other Discharge Plan Triage Chief Complaint: Complaint ED Provider: Aftab Mann Dx/Rx/DC Orders Clinical Impression: Acute urinary retention, COPD (chronic obstructive pulmonary disease), Hypertension Instructions: ED Briggs Catheter, Care, ED Urinary Retention, Male Prescriptions: No Action glipizide 10 mg tablet 10 mg PO BID chlorthalidone 25 mg tablet 25 mg PO DAILY multivitamin Tablet 1 tab PO DAILY melatonin 3 mg Tablet 3 mg PO QHS tamsulosin 0.4 mg Capsule 0.4 mg PO QHS amlodipine 10 mg Tablet 10 mg PO DAILY citalopram 10 mg Tablet 20 mg PO DAILY guaifenesin 200 mg Tablet 200 mg PO Q4H PRN (Reason: Cough) albuterol sulfate [Ventolin HFA] 90 mcg/actuation HFA aerosol inhaler 1 inh inhalation BID pantoprazole 20 mg Tablet,Delayed Release (Dr/Ec) 20 mg PO DAILY fluticasone propionate 50 mcg/actuation [place],Suspension 1 spray INTRANASAL DAILY Rx Instructions: administer into each nostril atorvastatin 40 mg PO DAILY mupirocin 2 % ointment 1 applic topical BID Qty: 22 0RF Rx Instructions: to affected open areas empagliflozin 25 mg tablet 12.5 mg PO DAILY alogliptin 25 mg tablet 25 mg PO DAILY primidone [Mysoline] 50 mg tablet 50 mg PO QHS aspirin 81 mg capsule 81 mg PO DAILY prednisone 20 mg tablet 40 mg PO DAILY 5 Days Qty: 10 0RF ciprofloxacin HCl 500 mg tablet 500 mg PO BID 5 Days Qty: 10 0RF cephalexin 500 mg capsule 500 mg PO TID 7 Days Qty: 21 0RF potassium chloride 20 mEq tablet,ER particles/crystals 20 meq PO BID Qty: 6 0RF [facility] Referrals: Kwadwo Kyle MD [Med Staff - Active Staff] - [facility] [Primary [facility] Provider] - Activity Restrictions/Additional Instructions: Please follow-up with urology to discuss options for your urinary retention and return to the ER should you have any further concerns Print Language: Romanian Disposition Disposition: Home, Self Care Discharge Date/Time: 05/24/24 04:49
[2024-05-24 04:48] VITALS: BP 123/76; PULSE 82; RESP 16; TEMP 36.6; O2SAT 99
== END 2024-05-24 04:49 | disposition home or self-care (01) ==
LOC: ED 04:41
PROVIDERS: Emergency Provider Emergency Medicine; Visit Provider Emergency Medicine
DX: R33.9 Retention of urine, unspecified (principal); J44.9 Chronic obstructive pulmonary disease, unspecified; E11.9 Type 2 diabetes mellitus without complications; I10 Essential (primary) hypertension; Z79.51 Long term (current) use of inhaled steroids; Z79.82 Long term (current) use of aspirin; Z79.84 Long term (current) use of oral hypoglycemic drugs; Z79.899 Other long term (current) drug therapy; Z87.891 Personal history of nicotine dependence
CPT/HCPCS: 51702; 99283

== ENCOUNTER 2024-06-05 20:52 | Emergency (ER) | payer MEDICARE, SELFPAY ==
[2022-04-22 08:14] VITALS: BMI 30.6
[2024-06-05 20:53] VITALS: BP 120/81; PULSE 87; RESP 16; TEMP 36.3; O2SAT 94; BMI 28.0
--- NOTE | 2024-06-05 21:06 | EX.ED.GUMALE ---
HPI History of Present Illness Chief Complaint: Complaint Informant: patient and spouse/S.O. Narrative Narrative: 73-year-old male has had an indwelling Briggs catheter for urinary retention for 3 weeks or so, takes a baby aspirin states all of a sudden today started seeing blood in the bag, he emptied it now there is no more blood, he denies having any pain or any other symptoms. No recent injury or fall. He has not seen urology yet, has an appointment in 2 days. PFSH PFSH Medical History Prostate disease Dietary restriction Lipoma of back Sebaceous cyst Aneurysm Anxiety Excessive bleeding Chronic cough History of edema History of stress test History of echocardiogram Degenerative joint disease of hand Hyperlipidemia Benign essential hypertension Wears hearing aid Wears glasses Wears dentures Depression Alcohol use Diabetes History of steroid therapy Arthritis Hepatitis Easy bruising Gastric reflux Shortness of breath on exertion On home oxygen therapy Leg cramps Former smoker Hypertension COPD (chronic obstructive pulmonary disease) Smoking greater than 40 pack years Home Medications ?Medication ?Instructions ?Recorded ?Last Taken ?Type amlodipine 10 mg tablet 10 mg PO DAILY HTN 12/23/21 Unknown History melatonin 3 mg tablet 3 mg PO QHS 12/23/21 Unknown History multivitamin 1 tab PO DAILY 12/23/21 Unknown History tamsulosin 0.4 mg capsule 0.4 mg PO QHS 12/23/21 Unknown History citalopram 10 mg tablet 20 mg PO DAILY MOOD 02/21/22 Unknown History guaifenesin 200 mg tablet 200 mg PO Q4H PRN Cough 02/21/22 Unknown History albuterol sulfate 90 mcg/actuation 1 inh inhalation BID 03/24/22 07/01/23 History aerosol inhaler (Ventolin HFA) fluticasone propionate 50 1 spray intranasal DAILY 04/29/22 Unknown History mcg/actuation nasal spray,suspension pantoprazole 20 mg tablet,delayed 20 mg PO DAILY GERD 04/29/22 Unknown History release atorvastatin 40 mg PO DAILY 10/13/22 Unknown History mupirocin 2 % topical ointment 1 applic topical BID #22 grams 11/05/22 Unknown Rx chlorthalidone 25 mg tablet 25 mg PO DAILY 04/29/23 Unknown History glipizide 10 mg tablet 10 mg PO BID 04/29/23 Unknown History potassium chloride 20 mEq 20 meq PO BID #6 tabs 06/16/23 Unknown Rx tablet,extended release(part/cryst) alogliptin 25 mg tablet 25 mg PO DAILY 05/05/24 Unknown History aspirin 81 mg capsule 81 mg PO DAILY 05/05/24 Unknown History empagliflozin 25 mg tablet 12.5 mg PO DAILY 05/05/24 Unknown History primidone 50 mg tablet (Mysoline) 50 mg PO QHS 05/05/24 Unknown History ciprofloxacin HCl 500 mg tablet 500 mg PO BID 5 days #10 tabs 05/07/24 Unknown Rx prednisone 20 mg tablet 40 mg (2 x 20 mg) PO DAILY 5 days 05/07/24 Unknown Rx #10 tabs cephalexin 500 mg capsule 500 mg PO TID 7 days #21 caps 05/16/24 Unknown Rx ciprofloxacin HCl 500 mg tablet 500 mg PO BID 5 days #10 TABLETS 06/05/24 Unknown Rx Allergy/AdvReac Type Severity Reaction Status Date / Time adhesive tape AdvReac Intermediate Rash Verified 06/05/24 20:53 gabapentin AdvReac Unknown PT UNSURE Verified 06/05/24 20:53 OF REACTION rosuvastatin AdvReac Unknown PT UNSURE Verified 06/05/24 20:53 OF REACTION hydroxyzine AdvReac NEEDS Verified 06/05/24 20:53 FOLLOW-UP Family History Father Cancer Heart disease Mother Heart disease Myocardial infarction Surgical History History of excision of mass History of cataract surgery History of esophagogastroduodenoscopy (EGD) Hx of colonoscopy History of hand surgery Hx of appendectomy H/O wrist surgery Social History household members: spouse Smoking Status: Former smoker quit date: 09/26/21 pack-years: 90 Tobacco: How many years used: 60 alcohol intake: former substance use type: does not use ROS ROS ED Constitutional Constitutional ED: Denies chills or fever(s) Eyes Eyes: Denies change in vision or diplopia ENT ENT ED: Denies rhinorrhea or sore throat Cardiovascular Cardiovascular: Denies chest pain or palpitations Respiratory/Chest Respiratory/Chest: Denies cough or dyspnea Gastrointestinal Gastrointestinal: Denies abdominal pain, diarrhea, nausea or vomiting Genitourinary Genitourinary ED: Reports hematuria; Denies dysuria Musculoskeletal Musculoskeletal: Denies back pain or neck pain Integumentary Denies abscess or rash Neurologic Neurologic: Denies headache(s), paresthesias or weakness Psychiatric Psychiatric: Denies anxiety or suicidal thoughts EXAM Physical Exam Const Vital Signs: 06/05/24 20:53 Temperature 97.4 F L Temperature Source Temporal Pulse Rate 87 Respiratory Rate 16 Blood Pressure 120/81 H Blood Pressure Mean 94 Pulse Ox 94 Oxygen Delivery Method Room Air Positive well nourished and well developed General Appearance ED: well developed and NAD HEENT Reports moist mucous membranes normocephalic and atraumatic Eyes PERRL and EOMs intact bilaterally Neck full ROM and supple Resp normal respiratory effort and clear to auscultation bilaterally Cardio regular rate, regular rhythm and no murmurs GI non-tender and non-distended Auscultation: normoactive bowel sounds Palpation: soft no CVA tenderness Narrative: Briggs catheter in place, there is dark yellow nonbloody urine in the bag. He empties it, there is transparent yellow urine emanating from the catheter back into the bag. Back/Spine no CVA tenderness General Back: other FROM Extremity normal to inspection General Extremety ED: Negative for edema, pulses abnormal or tenderness General Extremity: Negative for edema or pulses abnormal Neuro oriented x3, CN's II-XII intact bilaterally and no sensory deficits noted Sensorium / Orientation: awake and alert Motor Exam: strength 5/5 throughout Skin no rashes or lesions noted and no wounds MDM MDM MDM Narrative Medical decision making narrative: Blood test evaluated, concerning mostly because he is hyperglycemic at over 400, and his urine is showing signs of infection with pyuria. This was sent for culture, and looking at his last positive culture which was in April and it was positive for Klebsiella pneumonia sensitive to most including Cipro some going to start him on that for 5 days and have him follow-up as scheduled with urology. There is no bacteriuria so is possible there is is not an infection, but with his hyperglycemia he is certainly at risk for that. He is agreeable to get a small dose of insulin before discharge, I am only can given 10 units, he has his oral diabetes medications that he has still to take tonight. His significant other states that whenever someone dropped soft baked goods, he eats too much of them. Lab Data Attestation: I reviewed the patient's lab results. Labs: Laboratory Results - last 24 hr 06/05/24 06/05/24 21:10 21:15 WBC 8.2 RBC 4.87 Hgb 16.0 Hct 46.6 MCV 95.7 H MCH 32.9 H MCHC 34.3 RDW Std Deviation 51.3 H RDW Coeff of Tarik 14.6 Plt Count 390 MPV 9.5 Immature Gran % (Auto) 0.900 Neut % (Auto) 61.3 Lymph % (Auto) 25.5 [place] % (Auto) 8.0 Eos % (Auto) 3.9 Baso % (Auto) 0.4 Absolute Neuts (auto) 5.1 Absolute Lymphs (auto) 2.10 Nucleated RBC % 0 Sodium 133 L Potassium 3.4 L Chloride 96 L Carbon Dioxide 28.0 Anion Gap 9 BUN 18 Creatinine 1.31 H Estim Creat Clear Calc 57.11 Est GFR (MDRD) Af Amer 69 Est GFR (MDRD) Non-Af 57 L BUN/Creatinine Ratio 13.7 Glucose 405 H Calcium 9.2 Urine Color Yellow Urine Clarity Sl. Cloudy Urine pH 6.0 Ur Specific [place] 1.010 Urine Protein 30 H Urine Glucose (UA) 1000 H Urine Ketones Negative Urine Occult Blood 250 H Urine Nitrite Positive H Urine Bilirubin Negative Urine Urobilinogen Normal Ur Leukocyte Esterase 100 H Urine RBC > 100 SEEN Urine WBC 10-25 SEEN Ur Squamous Epith Cells 0 SEEN Urine Bacteria 0 SEEN Urine Mucus 0 SEEN Discharge Plan Triage Chief Complaint: Complaint ED Provider: Jet Fletcher Dx/Rx/DC Orders Clinical Impression: Hematuria, UTI (urinary tract infection), Hyperglycemia due to type 2 diabetes mellitus Instructions: ED Hematuria Prescriptions: New ciprofloxacin HCl 500 mg tablet 500 mg PO BID 5 Days Qty: 10 0RF No Action glipizide 10 mg tablet 10 mg PO BID chlorthalidone 25 mg tablet 25 mg PO DAILY multivitamin Tablet 1 tab PO DAILY melatonin 3 mg Tablet 3 mg PO QHS tamsulosin 0.4 mg Capsule 0.4 mg PO QHS amlodipine 10 mg Tablet 10 mg PO DAILY citalopram 10 mg Tablet 20 mg PO DAILY guaifenesin 200 mg Tablet 200 mg PO Q4H PRN (Reason: Cough) albuterol sulfate [Ventolin HFA] 90 mcg/actuation HFA aerosol inhaler 1 inh inhalation BID pantoprazole 20 mg Tablet,Delayed Release (Dr/Ec) 20 mg PO DAILY fluticasone propionate 50 mcg/actuation [place],Suspension 1 spray INTRANASAL DAILY Rx Instructions: administer into each nostril atorvastatin 40 mg PO DAILY mupirocin 2 % ointment 1 applic topical BID Qty: 22 0RF Rx Instructions: to affected open areas empagliflozin 25 mg tablet 12.5 mg PO DAILY alogliptin 25 mg tablet 25 mg PO DAILY primidone [Mysoline] 50 mg tablet 50 mg PO QHS aspirin 81 mg capsule 81 mg PO DAILY prednisone 20 mg tablet 40 mg PO DAILY 5 Days Qty: 10 0RF ciprofloxacin HCl 500 mg tablet 500 mg PO BID 5 Days Qty: 10 0RF cephalexin 500 mg capsule 500 mg PO TID 7 Days Qty: 21 0RF potassium chloride 20 mEq tablet,ER particles/crystals 20 meq PO BID Qty: 6 0RF [facility] - (urology as scheduled) Print Language: [place] Disposition Disposition: Home, Self Care
[2024-06-05 21:25] LABS: Bacteria 0 SEEN /hpf (None Seen); Mucous, Urine 0 SEEN /hpf (<or=2+); Squamous Epithelial Cells - UA 0 SEEN /hpf (0-5)
[2024-06-05 21:28] LABS: Color, Urine Yellow (Yellow); Glucose, Dipstick 1000 mg/dl (Normal); Ketone-Dipstick Negative (Negative); Leukocyte Esterase-Dipstick 100 /ul (Negative); Nitrite-Dipstick Positive (Negative); Occult Blood-Urine 250 /ul (Negative); Protein-Dipstick 30 mg/dl (Negative); Urine Bilirubin Dipstick Negative (Negative); Urine Clarity Sl. Cloudy (Clear); Urine Urobilinogen Normal (Normal)
[2024-06-05 21:32] LABS: Absolute Neutrophil Count 5.1 X10^3/uL (2.0-7.7); Basophil# 0.03 X10^3/uL; Basophil% 0.4 % (0-1); Eosinophil# 0.32 X10^3/uL; Eosinophils% 3.9 % (0-5); Hematocrit 46.6 % (40-54); Lymphocyte % 25.5 % (19-41); Mean Corp Hgb Conc 34.3 g/dL (32-36); Mean Corpuscular Hgb 32.9 pg (27.0-32.0); Mean Corpuscular Volume 95.7 fL (80-94); Mean Platelet Vol. 9.5 fl (6.2-12.0); Monocyte# 0.66 X10^3/uL; NRBC Flagged by Analyzer 0 % (0-5); Neutrophil # 5.05 X10^3/uL (2.7-7.7); Neutrophil % 61.3 % (47-70); Platelet Count 390 K/mm3 (150-450); RBC Distribution Width CV 14.6 % (11.6-14.6); RBC Distribution Width SD 51.3 fl (35.1-43.9); Red Blood Count 4.87 M/mm3 (4.6-6.2); White Blood Count 8.2 K/mm3 (4.4-11.0)
[2024-06-05 21:38] LABS: Red Blood Cells-Urine > 100 SEEN /hpf (0-5); White Blood Cells 10-25 SEEN /hpf (0-5)
[2024-06-05 21:39] LABS: Anion Gap 9 (5-15); BUN 18 mg/dL (7-18); BUN/Creat Ratio 13.7 RATIO (10-20); Calcium,Total 9.2 mg/dL (8.5-10.1); Chloride 96 mmol/L (98-107); Creatinine, Serum 1.31 mg/dL (0.70-1.30); EST Glomerular Filtration Rate 57 mL/min (>60); Est Glom Filt Rate - Afr Amer 69 mL/min (>60); Estimated Creatinine Clearance 57.11 ml/min; Glucose 405 mg/dL (74-106); Potassium 3.4 mmol/L (3.5-5.1); Sodium Level 133 mmol/L (136-145)
[2024-06-05] MEDS: Insulin Lispro 100 UNIT/ML INSULN.PEN 10 UNIT SC (22:30)
[2024-06-05] MEDS: Ciprofloxacin 500 MG Tablet PO (22:30)
[2024-06-05 22:33] VITALS: BP 137/72; PULSE 80; RESP 18; TEMP 36.7; O2SAT 97
== END 2024-06-05 22:34 | disposition home or self-care (01) ==
PROVIDERS: Emergency Provider Emergency Medicine; Visit Provider Emergency Medicine
DX: N39.0 Urinary tract infection, site not specified (principal); J44.9 Chronic obstructive pulmonary disease, unspecified; E11.65 Type 2 diabetes mellitus with hyperglycemia; E78.5 Hyperlipidemia, unspecified; I10 Essential (primary) hypertension; Z79.51 Long term (current) use of inhaled steroids; Z79.82 Long term (current) use of aspirin; Z79.84 Long term (current) use of oral hypoglycemic drugs; Z79.899 Other long term (current) drug therapy; Z87.891 Personal history of nicotine dependence
CPT/HCPCS: 80048; 81001; 85025; 87077; 87086; 87088; 87186; 99282; A4216

== ENCOUNTER 2024-06-18 04:29 | Emergency (ER) | payer OTHER, SELFPAY ==
[2022-04-22 08:14] VITALS: BMI 30.6
[2024-06-18 04:31] VITALS: BP 151/92; PULSE 106; RESP 18; TEMP 36.9; O2SAT 98; BMI 27.7
[2024-06-18 05:03] LABS: Absolute Lymphocyte Count 1.11 X10^3/uL (0.83-4.51); Absolute Neutrophil Count 12.8 X10^3/uL (2.0-7.7); Basophil# 0.06 X10^3/uL; Basophil% 0.4 % (0-1); Eosinophil# 0.02 X10^3/uL; Eosinophils% 0.1 % (0-5); Hematocrit 46.5 % (40-54); Hemoglobin 15.8 g/dL (13.0-16.5); Lymphocyte # 1.11 X10^3/ul (0.83-4.51); Lymphocyte % 7.2 % (19-41); Mean Corpuscular Hgb 32.3 pg (27.0-32.0); Mean Corpuscular Volume 95.1 fL (80-94); Mean Platelet Vol. 9.4 fl (6.2-12.0); Monocyte# 1.37 X10^3/uL; Monocyte% 8.9 % (0-10); NRBC Flagged by Analyzer 0 % (0-5); Neutrophil # 12.81 X10^3/uL (2.7-7.7); Neutrophil % 82.7 % (47-70); Platelet Count 398 K/mm3 (150-450); RBC Distribution Width CV 14.4 % (11.6-14.6); RBC Distribution Width SD 49.6 fl (35.1-43.9); Red Blood Count 4.89 M/mm3 (4.6-6.2); White Blood Count 15.5 K/mm3 (4.4-11.0)
[2024-06-18 05:16] LABS: Anion Gap 8 (5-15); BUN 19 mg/dL (7-18); BUN/Creat Ratio 15.8 RATIO (10-20); Calcium,Total 9.9 mg/dL (8.5-10.1); Chloride 96 mmol/L (98-107); EST Glomerular Filtration Rate 63 mL/min (>60); Est Glom Filt Rate - Afr Amer 76 mL/min (>60); Estimated Creatinine Clearance 57.52 ml/min; Glucose 304 mg/dL (74-106); Potassium 3.6 mmol/L (3.5-5.1); Sodium Level 133 mmol/L (136-145)
[2024-06-18] MEDS: Lidocaine Jelly 2% 20 ML Syringe (URO-JET) 1 APPLIC TOPICAL (05:24)
[2024-06-18 05:36] VITALS: BP 118/77; PULSE 78; RESP 18; TEMP 36.4; O2SAT 95
--- NOTE | 2024-06-18 05:54 | EX.ED.DYSGE1 ---
HPI History of Present Illness Chief Complaint: Abd Pain Informant: patient and spouse/S.O. Narrative Narrative: Patient is a 73-year-old male with past medical history of hypertension COPD prostate cancer and [id number] diabetes. He has had to have a Briggs catheter in place secondary to acute urinary retention. He states that Thursday morning he emptied his catheter bag and then noted throughout the day that it was not draining well. He states that as time passed he now has abdominal pain and distention and the catheter is still not flowing. With concern he has a blocked Briggs catheter he presents for evaluation [facility] Medical History Prostate disease Dietary restriction Lipoma of back Sebaceous cyst Aneurysm Anxiety Excessive bleeding Chronic cough History of edema History of stress test History of echocardiogram Degenerative joint disease of hand Hyperlipidemia Benign essential hypertension Wears hearing aid Wears glasses Wears dentures Depression Alcohol use Diabetes History of steroid therapy Arthritis Hepatitis Easy bruising Gastric reflux Shortness of breath on exertion On home oxygen therapy Leg cramps Former smoker Hypertension COPD (chronic obstructive pulmonary disease) Smoking greater than 40 pack years Home Medications ?Medication ?Instructions ?Recorded ?Last Taken ?Type amlodipine 10 mg tablet 10 mg PO DAILY HTN 12/23/21 Unknown History melatonin 3 mg tablet 3 mg PO QHS 12/23/21 Unknown History multivitamin 1 tab PO DAILY 12/23/21 Unknown History tamsulosin 0.4 mg capsule 0.4 mg PO QHS 12/23/21 Unknown History citalopram 10 mg tablet 20 mg PO DAILY MOOD 02/21/22 Unknown History guaifenesin 200 mg tablet 200 mg PO Q4H PRN Cough 02/21/22 Unknown History albuterol sulfate 90 mcg/actuation 1 inh inhalation BID 03/24/22 07/01/23 History aerosol inhaler (Ventolin HFA) fluticasone propionate 50 1 spray intranasal DAILY 04/29/22 Unknown History mcg/actuation nasal spray,suspension pantoprazole 20 mg tablet,delayed 20 mg PO DAILY GERD 04/29/22 Unknown History release atorvastatin 40 mg PO DAILY 10/13/22 Unknown History mupirocin 2 % topical ointment 1 applic topical BID #22 grams 11/05/22 Unknown Rx chlorthalidone 25 mg tablet 25 mg PO DAILY 04/29/23 Unknown History glipizide 10 mg tablet 10 mg PO BID 04/29/23 Unknown History potassium chloride 20 mEq 20 meq PO BID #6 tabs 08/08/23 Unknown Rx tablet,extended release(part/cryst) alogliptin 25 mg tablet 25 mg PO DAILY 05/05/24 Unknown History aspirin 81 mg capsule 81 mg PO DAILY 05/05/24 Unknown History empagliflozin 25 mg tablet 12.5 mg PO DAILY 05/05/24 Unknown History primidone 50 mg tablet (Mysoline) 50 mg PO QHS 05/05/24 Unknown History ciprofloxacin HCl 500 mg tablet 500 mg PO BID 5 days #10 tabs 05/07/24 Unknown Rx prednisone 20 mg tablet 40 mg (2 x 20 mg) PO DAILY 5 days 05/07/24 Unknown Rx #10 tabs cephalexin 500 mg capsule 500 mg PO TID 7 days #21 caps 05/16/24 Unknown Rx ciprofloxacin HCl 500 mg tablet 500 mg PO BID 5 days #10 TABLETS 06/05/24 Unknown Rx Allergy/AdvReac Type Severity Reaction Status Date / Time adhesive tape AdvReac Intermediate Rash Verified 06/18/24 04:30 gabapentin AdvReac Unknown PT UNSURE Verified 06/18/24 04:30 OF REACTION rosuvastatin AdvReac Unknown PT UNSURE Verified 06/18/24 04:30 OF REACTION hydroxyzine AdvReac NEEDS Verified 06/18/24 04:30 FOLLOW-UP Family History Father Cancer Heart disease Mother Heart disease Myocardial infarction Surgical History History of excision of mass History of cataract surgery History of esophagogastroduodenoscopy (EGD) Hx of colonoscopy History of hand surgery Hx of appendectomy H/O wrist surgery Social History household members: spouse Smoking Status: Former smoker quit date: 09/26/21 pack-years: 90 Tobacco: How many years used: 60 alcohol intake: former substance use type: does not use ROS ROS ED Constitutional Constitutional ED: Denies chills or fever(s) ENT ENT ED: Denies sore throat Cardiovascular Cardiovascular: Denies chest pain Respiratory/Chest Respiratory/Chest: Denies cough or dyspnea Gastrointestinal Gastrointestinal: Reports abdominal pain; Denies diarrhea, nausea or vomiting Genitourinary Genitourinary ED: Reports other Details: Positive urinary retention Musculoskeletal Musculoskeletal: Denies back pain Integumentary Denies rash Neurologic Neurologic: Denies headache(s) Hematologic/Lymphatic Hematologic/Lymphatic: Denies easy bleeding or easy bruising EXAM Physical Exam Const Vital Signs: 06/18/24 04:31 06/18/24 05:36 Temperature 98.5 F 97.5 F L Temperature Source Oral Temporal Pulse Rate 106 H 78 Respiratory Rate 18 18 Blood Pressure 151/92 H 118/77 Blood Pressure Mean 111 90 Pulse Ox 98 95 Oxygen Delivery Method Room Air Room Air Positive well nourished and well developed General Appearance ED: well developed; Negative for pallor HEENT HEENT Narrative: Normocephalic atraumatic Eyes PERRL and EOMs intact bilaterally General Eye ED: Negative for scleral icterus Neck supple Resp normal respiratory effort Resp Narrative: Breath sounds are diminished throughout with diffuse expiratory wheeze consistent with history of COPD but no signs of respiratory distress Cardio regular rate and regular rhythm GI GI Narrative: There is organomegaly with mild distention in the midline/suprapubic region of the abdomen. There is pain with palpation at the site. The remainder of the abdomen is soft and nontender. No pulsatile mass or fluid wave Auscultation: normoactive bowel sounds Narrative: Indwelling Briggs catheter noted without active drainage within the Briggs catheter tube or bag and no signs of leakage around the urethral meatus Back/Spine no CVA tenderness Extremity normal to inspection Neuro oriented x3, CN's II-XII intact bilaterally and no sensory deficits noted Sensorium / Orientation: alert Motor Exam: strength 5/5 throughout Psych mental status grossly normal Skin no rashes or lesions noted General Skin Exam: Negative for jaundice or pallor MDM MDM MDM Narrative Medical decision making narrative: Patient arrived to the ER mildly hypertensive but otherwise with stable vitals. He reported roughly 24 hours of poor urinary output and therefore there is concern for acute urinary retention leading to acute kidney injury. Basic labs were obtained in order to check for this and patient's creatinine is at his baseline of 1.2 going against acute kidney injury. His glucose is elevated at 304 but he is a diabetic and there is no findings/changes concerning for DKA. The patient's white blood cell count is elevated but this is most likely stress response as he is afebrile and otherwise denies any sick symptoms. His Briggs catheter was changed and after doing so there is drainage of clear yellow urine and his organomegaly and abdominal pain resolved. Therefore at this time as he does not have ARIA and his symptoms have resolved and his vitals improved with decompression of his bladder I do not feel there is need for further workup and he is otherwise safe for discharge History & Record Review Discussion w/independent historian: Patient and Significant other Lab Data Attestation: I reviewed the patient's lab results. Labs: Laboratory Results - last 24 hr 06/18/24 04:55 WBC 15.5 H RBC 4.89 Hgb 15.8 Hct 46.5 MCV 95.1 H MCH 32.3 H MCHC 34.0 RDW Std Deviation 49.6 H RDW Coeff of Tarik 14.4 Plt Count 398 MPV 9.4 Immature Gran % (Auto) 0.700 Neut % (Auto) 82.7 H Lymph % (Auto) 7.2 L [place] % (Auto) 8.9 Eos % (Auto) 0.1 Baso % (Auto) 0.4 Absolute Neuts (auto) 12.8 H Absolute Lymphs (auto) 1.11 Nucleated RBC % 0 Sodium 133 L Potassium 3.6 Chloride 96 L Carbon Dioxide 29.0 Anion Gap 8 BUN 19 H Creatinine 1.20 Estim Creat Clear Calc 57.52 Est GFR (MDRD) Af Amer 76 Est GFR (MDRD) Non-Af 63 BUN/Creatinine Ratio 15.8 Glucose 304 H Calcium 9.9 Discharge Plan Triage Chief Complaint: Abd Pain ED Provider: Aftab Mann Dx/Rx/DC Orders Clinical Impression: Complication, blocked Briggs catheter, COPD (chronic obstructive pulmonary disease), Hypertension, Type 2 diabetes mellitus Instructions: Indwelling Urinary Catheter Dc, ED Briggs Catheter, Care Prescriptions: No Action glipizide 10 mg tablet 10 mg PO BID chlorthalidone 25 mg tablet 25 mg PO DAILY multivitamin Tablet 1 tab PO DAILY melatonin 3 mg Tablet 3 mg PO QHS tamsulosin 0.4 mg Capsule 0.4 mg PO QHS amlodipine 10 mg Tablet 10 mg PO DAILY citalopram 10 mg Tablet 20 mg PO DAILY guaifenesin 200 mg Tablet 200 mg PO Q4H PRN (Reason: Cough) albuterol sulfate [Ventolin HFA] 90 mcg/actuation HFA aerosol inhaler 1 inh inhalation BID pantoprazole 20 mg Tablet,Delayed Release (Dr/Ec) 20 mg PO DAILY fluticasone propionate 50 mcg/actuation [place],Suspension 1 spray INTRANASAL DAILY Rx Instructions: administer into each nostril atorvastatin 40 mg PO DAILY mupirocin 2 % ointment 1 applic topical BID Qty: 22 0RF Rx Instructions: to affected open areas empagliflozin 25 mg tablet 12.5 mg PO DAILY alogliptin 25 mg tablet 25 mg PO DAILY primidone [Mysoline] 50 mg tablet 50 mg PO QHS aspirin 81 mg capsule 81 mg PO DAILY prednisone 20 mg tablet 40 mg PO DAILY 5 Days Qty: 10 0RF ciprofloxacin HCl 500 mg tablet 500 mg PO BID 5 Days Qty: 10 0RF cephalexin 500 mg capsule 500 mg PO TID 7 Days Qty: 21 0RF ciprofloxacin HCl 500 mg tablet 500 mg PO BID 5 Days Qty: 10 0RF potassium chloride 20 mEq tablet,ER particles/crystals 20 meq PO BID Qty: 6 0RF [facility] Provider[facility] - Activity Restrictions/Additional Instructions: Please follow-up with your urologist for repeat evaluation and return to the ER should you have any further concerns or worsening of symptoms Print Language: Moroccan Disposition Disposition: Home, Self Care
[2024-06-18 06:04] VITALS: BP 110/75; PULSE 82; RESP 16; TEMP 36.3; O2SAT 96
== END 2024-06-18 06:13 | disposition home or self-care (01) ==
PROVIDERS: Emergency Provider Emergency Medicine; Visit Provider Emergency Medicine
DX: T83.091A Other mechanical complication of indwelling urethral catheter, initial encounter (principal); J44.9 Chronic obstructive pulmonary disease, unspecified; E11.65 Type 2 diabetes mellitus with hyperglycemia; I10 Essential (primary) hypertension; Z87.891 Personal history of nicotine dependence; E78.5 Hyperlipidemia, unspecified; Y73.8 Miscellaneous gastroenterology and urology devices associated with adverse incidents, not elsewhere classified
CPT/HCPCS: 51702; 80048; 85025; 99284; A4216

== ENCOUNTER 2024-06-20 10:43 | Inpatient (IN) | payer OTHER, SELFPAY ==
[2022-04-22 08:14] VITALS: BMI 30.6
[2024-06-20] VITALS (17 sets, daily range): BP systolic 101–134; BP diastolic 63–97; PULSE 62–145; RESP 14–28; TEMP 35.9–39; O2SAT 80–98; BMI 27.3
--- NOTE | 2024-06-20 10:49 | EKG12_ITS ---
Test Reason : TACHY Blood Pressure : / mmHG Vent. Rate : 145 BPM Atrial Rate : 145 BPM P-R Int : 162 ms QRS Dur : 070 ms QT Int : 330 ms P-R-T Axes : 029 011 041 degrees QTc Int : 512 ms Sinus tachycardia Nonspecific ST and T wave abnormality Abnormal ECG When compared with ECG of 20-JUN-2024 10:54, MANUAL COMPARISON REQUIRED, DATA IS UNCONFIRMED Confirmed by AZALEA PRATHER, MICHEAL ([id number]), editor producer EMMA HERNANDEZ ([id number]) on 06/22/2024 10:42:15 AM Referred By: SHAJI Confirmed By:MICHEAL TRISTAN MD
--- NOTE | 2024-06-20 11:00 | RAD_ITS ---
STUDY: X-RAY CHEST REASON FOR EXAM: Male, 73 years old. Chest pain TECHNIQUE: Single AP portable view of the chest. COMPARISON: Comparison is made with prior study dated May 29, 2022. FINDINGS: There is hyperinflation of the lungs consistent with chronic obstructive lung disease (COPD). There is no demonstrated pleural abnormality. Normal size heart. Normal mediastinum and lisa. Normal visualized pulmonary arteries. There is atherosclerotic calcification of the aortic arch with tortuosity. There are degenerative changes of the visualized thoracic spine. Normal visualized ribs, clavicles, and shoulders. There is no demonstrated abnormality of the visualized soft tissue structures of the upper abdomen. RAD/Chest 1 View (Portable) IMPRESSION: Hyperinflation and COPD. No acute abnormality is seen. Electronically Signed: Anibal Jimenez MD at 11:25 EDT ,
[2024-06-20 11:07] LABS: Absolute Lymphocyte Count 0.89 X10^3/uL (0.83-4.51); Absolute Neutrophil Count 21.7 X10^3/uL (2.0-7.7); Basophil# 0.11 X10^3/uL; Basophil% 0.4 % (0-1); Hematocrit 43.7 % (40-54); Lymphocyte # 0.89 X10^3/ul (0.83-4.51); Lymphocyte % 3.6 % (19-41); Mean Corp Hgb Conc 34.3 g/dL (32-36); Mean Corpuscular Hgb 32.6 pg (27.0-32.0); Mean Platelet Vol. 9.5 fl (6.2-12.0); NRBC Flagged by Analyzer 0 % (0-5); POSITIVE DIFFERENTIAL YES; Platelet Count 273 K/mm3 (150-450); RBC Distribution Width CV 14.3 % (11.6-14.6); RBC Distribution Width SD 49.8 fl (35.1-43.9); White Blood Count 24.9 K/mm3 (4.4-11.0)
[2024-06-20 11:19] LABS: Differential Indicated SCAN CRITERIA MET
[2024-06-20 11:31] LABS: Anion Gap 10 (5-15); BUN 25 mg/dL (7-18); Calcium,Total 9.2 mg/dL (8.5-10.1); Chloride 88 mmol/L (98-107); Creatinine, Serum 1.39 mg/dL (0.70-1.30); EST Glomerular Filtration Rate 53 mL/min (>60); Est Glom Filt Rate - Afr Amer 64 mL/min (>60); Estimated Creatinine Clearance 49.66 ml/min; Glucose 229 mg/dL (74-106); Potassium 3.5 mmol/L (3.5-5.1); Sodium Level 124 mmol/L (136-145); Troponin-I HS (w/2H Reflex) 17 pg/mL (3.0-78.0)
--- NOTE | 2024-06-20 12:15 | US_ITS ---
STUDY: ABDOMINAL ULTRASOUND - RIGHT UPPER QUADRANT REASON FOR VISIT: Male, 73 years old right upper quadrant pain and nausea. TECHNIQUE: Ultrasound evaluation of the right upper quadrant was performed with real-time and static bunch-scale imaging. TECHNICAL QUALITY: Adequate. COMPARISON: Comparison is made with prior CT scan done on pelvis dated May 16, 2024. FINDINGS: Liver: The liver is a mildly enlarged and measures 17.6 cm. There is increased echogenicity consistent with fatty infiltration. The bile ducts are within normal limits. There is hepatic color flow. The direction of portal flow is hepatopetal. There is no demonstrated mass lesion. Gallbladder: Normal distended gallbladder. The gallbladder wall measures 2.0 mm. There is a negative sonographic French''s sign. There is no pericholecystic fluid. There are no gallstones. Common Bile Duct (C.B.D.): The common bile duct measures 3.0 mm. Pancreas: Normal size of the head, body and tail of the pancreas. There is normal echogenicity of the pancreas. There is no demonstrated pancreatic mass or cyst. Right Kidney: Normal size of the right kidney. The right kidney measures 11.2 cm x 5.9 cm x 6.4 cm. Normal renal cortex. The right cortex measures 2.0 cm. There is a 1.4 cm x 1.3 cm x 1.4 cm cortical renal cyst. There is no right hydronephrosis. US/Gallbladder IMPRESSION: Mild hepatomegaly and fatty infiltration of the liver. Small right renal cyst. Electronically Signed: Anibal Jimenez MD at 13:22 EDT ,
--- NOTE | 2024-06-20 12:17 | ED.VIS.CHEST ---
HPI History of Present Illness Chief Complaint: Chest Pain Informant: patient Narrative Narrative: 73-year-old male states has been having heaviness in his right lower chest/right upper abdomen for about the past week along with off-and-on chills and decreased appetite to the point where he has had basically 1 meal of soup for the entire last week. He has been drinking water well, and it does not bother him to do so. Some nausea off-and-on no vomiting. He has not checked his temperature to see if he had any fevers. Since yesterday has been having sharp severe twinges of pain, he thinks he may be in the same area but is not really sure he does not have a right now, and he is very poor historian. His significant other tries to help provide information. No jaundice or confusion. History of appendectomy no other abdominal surgeries in the past. No history of heart problems that he knows of. He does have COPD, he has been a little more short of breath than usual but not coughing. PFSH PFSH Medical History Prostate disease Dietary restriction Lipoma of back Sebaceous cyst Aneurysm Anxiety Excessive bleeding Chronic cough History of edema History of stress test History of echocardiogram Degenerative joint disease of hand Hyperlipidemia Benign essential hypertension Wears hearing aid Wears glasses Wears dentures Depression Alcohol use Diabetes History of steroid therapy Arthritis Hepatitis Easy bruising Gastric reflux Shortness of breath on exertion On home oxygen therapy Leg cramps Former smoker Hypertension COPD (chronic obstructive pulmonary disease) Smoking greater than 40 pack years Home Medications ?Medication ?Instructions ?Recorded ?Last Taken ?Type amlodipine 10 mg tablet 10 mg PO DAILY HTN 12/23/21 Unknown History melatonin 3 mg tablet 3 mg PO QHS 12/23/21 Unknown History multivitamin 1 tab PO DAILY 12/23/21 Unknown History tamsulosin 0.4 mg capsule 0.4 mg PO QHS 12/23/21 Unknown History citalopram 10 mg tablet 20 mg PO DAILY MOOD 02/21/22 Unknown History guaifenesin 200 mg tablet 200 mg PO Q4H PRN Cough 02/21/22 Unknown History albuterol sulfate 90 mcg/actuation 1 inh inhalation BID 03/24/22 07/01/23 History aerosol inhaler (Ventolin HFA) fluticasone propionate 50 1 spray intranasal DAILY 04/29/22 Unknown History mcg/actuation nasal spray,suspension pantoprazole 20 mg tablet,delayed 20 mg PO DAILY GERD 04/29/22 Unknown History release atorvastatin 40 mg PO DAILY 10/13/22 Unknown History mupirocin 2 % topical ointment 1 applic topical BID #22 grams 11/05/22 Unknown Rx chlorthalidone 25 mg tablet 25 mg PO DAILY 04/29/23 Unknown History glipizide 10 mg tablet 10 mg PO BID 04/29/23 Unknown History potassium chloride 20 mEq 20 meq PO BID #6 tabs 06/16/23 Unknown Rx tablet,extended release(part/cryst) alogliptin 25 mg tablet 25 mg PO DAILY 05/05/24 Unknown History aspirin 81 mg capsule 81 mg PO DAILY 05/05/24 Unknown History empagliflozin 25 mg tablet 12.5 mg PO DAILY 05/05/24 Unknown History primidone 50 mg tablet (Mysoline) 50 mg PO QHS 05/05/24 Unknown History ciprofloxacin HCl 500 mg tablet 500 mg PO BID 5 days #10 tabs 05/07/24 Unknown Rx prednisone 20 mg tablet 40 mg (2 x 20 mg) PO DAILY 5 days 05/07/24 Unknown Rx #10 tabs cephalexin 500 mg capsule 500 mg PO TID 7 days #21 caps 05/16/24 Unknown Rx ciprofloxacin HCl 500 mg tablet 500 mg PO BID 5 days #10 TABLETS 06/05/24 Unknown Rx Allergy/AdvReac Type Severity Reaction Status Date / Time adhesive tape AdvReac Intermediate Rash Verified 06/20/24 10:46 gabapentin AdvReac Unknown PT UNSURE Verified 06/20/24 10:46 OF REACTION rosuvastatin AdvReac Unknown PT UNSURE Verified 06/20/24 10:46 OF REACTION hydroxyzine AdvReac NEEDS Verified 06/20/24 10:46 FOLLOW-UP Family History Father Cancer Heart disease Mother Heart disease Myocardial infarction Surgical History History of excision of mass History of cataract surgery History of esophagogastroduodenoscopy (EGD) Hx of colonoscopy History of hand surgery Hx of appendectomy H/O wrist surgery Social History household members: spouse Smoking Status: Former smoker quit date: 11/18/21 pack-years: 90 Tobacco: How many years used: 60 alcohol intake: former substance use type: does not use EXAM Physical Exam Const Vital Signs: 06/20/24 10:43 06/20/24 11:43 06/20/24 11:43 Temperature 96.6 F L Temperature Source Temporal Pulse Rate 62 84 Respiratory Rate 19 H 16 Respiratory Effort Blood Pressure 117/79 106/70 Blood Pressure Mean 91 82 Pulse Ox 98 98 Oxygen Delivery Method Room Air Room Air Room Air 06/20/24 11:48 06/20/24 12:00 06/20/24 13:00 Temperature Temperature Source Pulse Rate 78 75 Respiratory Rate 18 14 Respiratory Effort Short of Breath Blood Pressure 106/70 112/71 Blood Pressure Mean 82 84 Pulse Ox 98 95 Oxygen Delivery Method Room Air Room Air 06/20/24 14:00 06/20/24 14:45 06/20/24 15:00 Temperature Temperature Source Pulse Rate 80 111 H Respiratory Rate 18 28 H 20 H Respiratory Effort Blood Pressure 107/91 H 134/97 H Blood Pressure Mean 96 109 Pulse Ox 98 91 Oxygen Delivery Method Room Air Room Air 06/20/24 15:11 06/20/24 15:26 Temperature 102.2 F H Temperature Source Axillary Pulse Rate Respiratory Rate Respiratory Effort Blood Pressure Blood Pressure Mean Pulse Ox Oxygen Delivery Method Room Air MDM MDM MDM Narrative Medical decision making narrative: Initially chest x-ray obtained 1 view on my interpretation shows no acute pneumonia in his right base sounds clear. His basic labs show a normal troponin this was later repeated and is negative, but he has a significant leukocytosis of 24.9 with a leftward trend, no bands. Also he has ARIA and his sodium is low, all may be possible to lack of p.o. intake. Given his area of most tenderness in the right upper quadrant laterally, although his abdomen diffusely tender I started with a gallbladder ultrasound to see if he has cholecystitis instills gallbladder. I reviewed the imaging and the report which I agree with it is normal. Given this to explain the leukocytosis and pain on obtaining a CT that the/pelvis as well as urinalysis. He does not have CVA tenderness to suggest pyelonephritis. His lactate is normal his vital signs are normal so I think it is reasonable to await further testing before empiric treatment since I do not know what the cause of his leukocytosis is yet. He is doing well clinically with IV fluids and Zofran and small dose pain medication. Patient's urine returns looking infected. Just before going for abdomen/pelvis to CT nurses were concerned because he appeared to be dyspneic and wheezing. His chest x-ray is unremarkable from 1-2 hours ago. I had respiratory give him a breathing treatment before he went to CTA, it did not seem to help very much and I saw him upon arriving back from [place]. He states he is doing okay, he feels like he is having cold chills but does not feel dyspneic although he sounds like he is having expiratory wheezes that are mild. He speaking in full sentences. I had nursing recheck his temperature, it is 102.2 which I think makes sense which is why his respiratory rate went up. Tylenol given, blood and urine cultures are sent prior to administering Rocephin empirically for possible UTI is causing all of this. I reviewed the CT abdomen/pelvis images, and I agree with the report it is essentially negative for any acute abnormality except for bladder wall thickening consistent with cystitis. Plan is for admission. At this time the patient does not meet any criteria for sepsis although he is generally weak and does have a significant leukocytosis. Lab Data Attestation: I reviewed the patient's lab results. Labs: Laboratory Results - last 24 hr 06/20/24 06/20/24 06/20/24 10:59 12:30 13:14 WBC 24.9 H RBC 4.60 Hgb 15.0 Hct 43.7 MCV 95.0 H MCH 32.6 H MCHC 34.3 RDW Std Deviation 49.8 H RDW Coeff of Tarik 14.3 Plt Count 273 MPV 9.5 Immature Gran % (Auto) 1.000 H Neut % (Auto) 87.0 H Lymph % (Auto) 3.6 L [place] % (Auto) 8.0 Eos % (Auto) 0.0 Baso % (Auto) 0.4 Absolute Neuts (auto) 21.7 H Absolute Lymphs (auto) 0.89 Nucleated RBC % 0 Differential Comment COMMENT Diff Path Review May foll Sodium 124 L Potassium 3.5 Chloride 88 L Carbon Dioxide 26.0 Anion Gap 10 BUN 25 H Creatinine 1.39 H Estim Creat Clear Calc 49.66 Est GFR (MDRD) Af Amer 64 Est GFR (MDRD) Non-Af 53 L BUN/Creatinine Ratio 18.0 Glucose 229 H Lactic Acid 1.9 Calcium 9.2 Troponin I High Sens 17 13 Urine Color Urine Clarity Urine pH Ur Specific [place] Urine Protein Urine Glucose (UA) Urine Ketones Urine Occult Blood Urine Nitrite Urine Bilirubin Urine Urobilinogen Ur Leukocyte Esterase Urine RBC Urine WBC Ur Squamous Epith Cells Urine Bacteria Urine Mucus 06/20/24 14:40 WBC RBC Hgb Hct MCV MCH MCHC RDW Std Deviation RDW Coeff of Tarik Plt Count MPV Immature Gran % (Auto) Neut % (Auto) Lymph % (Auto) [place] % (Auto) Eos % (Auto) Baso % (Auto) Absolute Neuts (auto) Absolute Lymphs (auto) Nucleated RBC % Differential Comment Diff Path Review Sodium Potassium Chloride Carbon Dioxide Anion Gap BUN Creatinine Estim Creat Clear Calc Est GFR (MDRD) Af Amer Est GFR (MDRD) Non-Af BUN/Creatinine Ratio Glucose Lactic Acid Calcium Troponin I High Sens Urine Color Yellow Urine Clarity Sl. Cloudy Urine pH 6.0 Ur Specific [place] 1.010 Urine Protein 30 H Urine Glucose (UA) 1000 H Urine Ketones 5 H Urine Occult Blood 150 H Urine Nitrite Negative Urine Bilirubin Negative Urine Urobilinogen Normal Ur Leukocyte Esterase 500 H Urine RBC 0-5 SEEN Urine WBC 25-50 SEEN Ur Squamous Epith Cells 0-5 SEEN Urine Bacteria 0 SEEN Urine Mucus 0 SEEN Radiography Diagnostic Testing: Clinical Impression(s) from Imaging Studies Chest X-Ray 06/20/24 11:00 IMPRESSION: Hyperinflation and COPD. No acute abnormality is seen. Electronically Signed: Anibal Jimenez MD at 11:25 EDT , Gallbladder Ultrasound 06/20/24 12:15 IMPRESSION: Mild hepatomegaly and fatty infiltration of the liver. Small right renal cyst. Electronically Signed: Anibal Jimenez MD at 13:22 EDT , Abdomen/Pelvis CT 06/20/24 14:16 IMPRESSION: Diffuse bladder wall thickening. A Briggs catheter is seen within the urinary bladder. Stable prostatic enlargement with indentation of the bladder base. Mild dilatation of the distal abdominal aorta. Electronically Signed: Anibal Jimenez MD at 15:43 EDT , Rhythm Strip Rhythm Strip: Sinus Rhythm Rate: 85 Ectopy: PVC(s) EKG Initial EKG: Attestation: I personally reviewed and interpreted this EKG as follows: Interpretation: Sinus Rhythm and No Acute Injury Pattern Comments: nml EKG except for a pair of sequential PVCs Management Discussion w/another healthcare provider: Hospitalist Discharge Plan Dx/Rx/DC Orders Clinical Impression: Complicated UTI (urinary tract infection), Hyperglycemia due to type 2 diabetes mellitus, Abdominal pain, acute, right upper quadrant, Acute renal insufficiency, Acute hyponatremia Disposition Disposition: Acute Care [facility]
[2024-06-20] MEDS: 0.9% Normal Saline (1000mL) 1,000 ML 999 ML IV (12:32)
[2024-06-20] MEDS: Ondansetron 4 MG/2 ML Vial IV (12:36)
[2024-06-20] MEDS: Morphine 2 MG/ML Syringe IV (12:36)
[2024-06-20 13:04] LABS: Reflex Troponin-HS? (from REC) Y
[2024-06-20 13:09] LABS: Lactic Acid 1.9 mmol/L (0.4-1.9)
[2024-06-20 13:36] LABS: Troponin-I HS 13 pg/mL (3.0-78.0)
--- NOTE | 2024-06-20 14:16 | CT_ITS ---
STUDY: CT ABDOMEN AND PELVIS WITHOUT CONTRAST REASON FOR EXAM: Male, 73 years old. Upper abd pain, diffuse tenderness, leukocytosis RADIATION DOSAGE (If Supplied By Facility): CTDIvol = ( 13.64 ) mGy, DLP = ( 712.25 ) mGycm TECHNIQUE: Transaxial images were obtained from the dome of the diaphragm to the symphysis pubis without oral contrast, and without intravenous contrast. Sagittal and coronal images were reconstructed. Individualized dose optimization techniques were used for this CT. COMPARISON: Comparison is made with prior study dated May 16, 2024. FINDINGS: Mild increased markings at the lung bases suggestive of scarring or atelectasis. Coronary artery calcification. Normal liver. Normal gallbladder and extrahepatic biliary system. Normal spleen. Normal pancreas. Normal bilateral adrenal glands. Stable 1 cm cyst in the posterior lateral aspect of the right kidney. Normal left kidney. There is a small hiatal hernia. Normal small intestine. Normal colon. The appendix is visualized and appears normal. There is diffuse atherosclerotic calcification of the abdominal aorta and its major visceral branches. Minimal dilatation of the distal abdominal aorta with a transverse dimension of 3 cm. Normal inferior vena cava. Normal retroperitoneum. A Briggs catheter is seen within the urinary bladder. The urinary bladder is of small capacity. There is diffuse bladder wall thickening. The prostate is enlarged and measures 4.8 cm x 4.9 cm. This causes an indentation at the bladder base. Normal abdominal wall. Normal osseous structures. CT/Abdomen/Pelvis without Cont IMPRESSION: Diffuse bladder wall thickening. A Briggs catheter is seen within the urinary bladder. Stable prostatic enlargement with indentation of the bladder base. Mild dilatation of the distal abdominal aorta. Electronically Signed: Anibal Jimenez MD at 15:43 EDT ,
[2024-06-20] MEDS: Ceftriaxone 1 GM/50 ML BAG IV (14:30)
--- NOTE | 2024-06-20 14:43 | ED.RN ---
PT NOTICEABLY SHAKING AND WHEEZING, NOTIFIED AND BREATHING TREATMENT ORDERED
[2024-06-20] MEDS: Albuterol 2.5 MG/3 ML VIAL.NEB. INHALATION ×2 (14:45→21:07)
[2024-06-20 14:46] LABS: Bacteria 0 SEEN /hpf (None Seen); Mucous, Urine 0 SEEN /hpf (<or=2+)
[2024-06-20 14:53] LABS: Color, Urine Yellow (Yellow); Glucose, Dipstick 1000 mg/dl (Normal); Ketone-Dipstick 5 mg/dl (Negative); Leukocyte Esterase-Dipstick 500 /ul (Negative); Nitrite-Dipstick Negative (Negative); Occult Blood-Urine 150 /ul (Negative); Protein-Dipstick 30 mg/dl (Negative); Urine Bilirubin Dipstick Negative (Negative); Urine Clarity Sl. Cloudy (Clear); Urine Urobilinogen Normal (Normal)
[2024-06-20 15:09] LABS: Red Blood Cells-Urine 0-5 SEEN /hpf (0-5)
[2024-06-20 15:11] LABS: Squamous Epithelial Cells - UA 0-5 SEEN /hpf (0-5); White Blood Cells 25-50 SEEN /hpf (0-5)
[2024-06-20] MEDS: Acetaminophen 500 MG Tablet 1000 MG PO (15:29)
[2024-06-20 16:08] LABS: AST(SGOT) 77 U/L (15-37); Alanine Aminotransfer ALT/SGPT 79 U/L (16-61); Alkaline Phosphatase 122 U/L (45-117); Bilirubin, Direct 0.86 mg/dL (0.00-0.30); Globulin 4.8 g/dL (2.2-4.2); Protein, Total 7.8 g/dL (6.4-8.2)
--- NOTE | 2024-06-20 16:26 | NURSING ---
MED SURG SHAJI COMPLICATED UTI, HYPONATREMIA
--- NOTE | 2024-06-20 16:29 | PCM.HP.STD ---
HPI - General General Date of Admission: 06/20/24 Date of Service: 06/20/24 Chief Complaint: Fever/Malaise/Generalized weakness HPI Evelia GARCÍA, is a 73 M who presented to the emergency department [facility] on 06/20/2020 for after having about 3 to 4 days of generalized weakness, malaise, subjective fevers, and right upper abdominal pain without nausea or vomiting. He denies any nausea or vomiting but states he has had this right upper quadrant abdominal pain. He states his bowels have been normal and he is passing flatus normally. He has a chronic indwelling Briggs and was admitted here at the end of April and was again seen in the emergency department at the end of May with a urinary tract infection. Culture from the May ER visit showed Enterobacter cloacae complex at greater than 100,000 CFU's per mL. He was discharged on oral antibiotics at that time and states he was feeling much better. He follows at the [facility] for his catheter and is hoping to get it out soon. Vital signs on presentation showed a temperature of 96.6 however he did have a Tmax in the emergency department 102.2, Heart rate was 62 however did elevate with hyperthermia, blood pressure was 117/79 and sats were 98% on room air. His oxygen saturations do drop slightly to 91% on room air however he remained stable and trended back up. CBC showed a leukocytosis with a white count of 24.9 and a left shift having a 87.0 neutrophilia. Chemistry panel showed hyponatremia with a sodium of 124 (baseline appears to run between 133 and 135). Serum creatinine was elevated at 1.39 with a baseline of 1.10-1.2. Glucose was 229. Lactic acid was normal and 1.9. His total bilirubin was 2.0 with a direct bilirubin of 0.6 and his AST and ALT were both elevated at 77 and 79 respectively. Alk phos was 122. UA is consistent with infection showing 150 of blood, 500 leuk esterase, white cells. Chest x-ray showed hyperinflation consistent with COPD but no acute abnormalities when compared to previous. CT of the abdomen pelvis showed diffuse bladder wall thickening with chronic Briggs in place as well as stable prostatic enlargement with indentation in the bladder base and mild dilation of the distal abdominal aorta. With his right upper quadrant pain right upper quadrant ultrasound was performed and showed mild hepatomegaly with fatty infiltration and small right renal cyst but was otherwise unremarkable. Patient was treated with IV morphine for his abdominal pain and by the time I saw him his symptoms were resolved. In the emergency department cultures were obtained and antibiotics were initiated. Patient does not meet criteria for sepsis at the time of admission. [facility] Medical History Leukocytosis Prostate disease Dietary restriction Lipoma of back Sebaceous cyst Aneurysm Anxiety Excessive bleeding Chronic cough History of edema History of stress test History of echocardiogram Degenerative joint disease of hand Hyperlipidemia Benign essential hypertension Wears hearing aid Wears glasses Wears dentures Depression Alcohol use Diabetes History of steroid therapy Arthritis Hepatitis Easy bruising Gastric reflux Shortness of breath on exertion On home oxygen therapy Leg cramps Former smoker Hypertension COPD (chronic obstructive pulmonary disease) Smoking greater than 40 pack years Home Medications ?Medication ?Instructions ?Recorded ?Last Taken ?Type amlodipine 10 mg tablet 10 mg PO DAILY HTN 12/23/21 06/19/24 History melatonin 3 mg tablet 3 mg PO QHS sleep aid 12/23/21 06/19/24 History multivitamin 1 tab PO DAILY multivitamin 12/23/21 06/19/24 History tamsulosin 0.4 mg capsule 0.4 mg PO QHS urinary retention 12/23/21 06/19/24 History guaifenesin 200 mg tablet 200 mg PO Q4H PRN Cough 02/21/22 Unknown History albuterol sulfate 90 mcg/actuation 1 inh inhalation BID COPD 03/24/22 07/01/23 History aerosol inhaler (Ventolin HFA) fluticasone propionate 50 1 spray intranasal DAILY nose spray 04/29/22 06/19/24 History mcg/actuation nasal spray,suspension pantoprazole 20 mg tablet,delayed 20 mg PO DAILY GERD 04/29/22 Unknown History release atorvastatin 40 mg PO DAILY CHOLESTEROL 10/13/22 Unknown History chlorthalidone 25 mg tablet 25 mg PO DAILY HTN 04/29/23 06/19/24 History glipizide 10 mg tablet 10 mg PO BID Diabetes 04/29/23 06/19/24 History potassium chloride 20 mEq 20 meq PO BID potassium #6 tabs 06/16/23 Unknown Rx tablet,extended release(part/cryst) aspirin 81 mg capsule 81 mg PO DAILY HEART 05/05/24 Unknown History primidone 50 mg tablet (Mysoline) 50 mg PO QHS primidone 05/05/24 06/19/24 History Allergy/AdvReac Type Severity Reaction Status Date / Time adhesive tape AdvReac Intermediate Rash Verified 06/20/24 10:46 gabapentin AdvReac Unknown PT UNSURE Verified 06/20/24 10:46 OF REACTION rosuvastatin AdvReac Unknown PT UNSURE Verified 06/20/24 10:46 OF REACTION hydroxyzine AdvReac NEEDS Verified 06/20/24 10:46 FOLLOW-UP Family History Father Cancer Heart disease Mother Heart disease Myocardial infarction Surgical History History of excision of mass History of cataract surgery History of esophagogastroduodenoscopy (EGD) Hx of colonoscopy History of hand surgery Hx of appendectomy H/O wrist surgery Social History household members: spouse Smoking Status: Former smoker quit date: 09/26/21 pack-years: 90 Tobacco: How many years used: 60 alcohol intake: former substance use type: does not use ROS Constitutional Constitutional: Reports chills, fatigue, fever(s), malaise and weakness; Denies anorexia, change in weight, night sweats or other Eyes Eyes: Denies blurry vision, change in eye color, change in vision, discharge from eye(s), double vision, erythema, eye pain, loss of vision or other ENT HEENT: Reports abnormal hearing and hearing loss; Denies dysphagia, ear pain, epistaxis, headache(s), nasal congestion, nasal discharge, post nasal drip, sinus pressure, sore throat or other Cardiovascular Cardiovascular: Denies chest pain, claudication, dyspnea on exertion, edema, lightheadedness, orthopnea, palpitations, paroxysmal nocturnal dyspnea, rapid heart rate, syncope or other Respiratory/Chest Respiratory/Chest: Denies cough, dyspnea, excessive phlegm production, hemoptysis, productive cough, shortness of breath at rest, shortness of breath with exertion, wheezing or other Gastrointestinal Gastrointestinal: Reports abdominal pain; Denies coffee ground emesis, constipation, diarrhea, dyspepsia, hematemesis, hematochezia, loose stools, melena, nausea, vomiting or other Genitourinary Genitourinary: Reports other Details: chronic indwelling Briggs cath Musculoskeletal Musculoskeletal: Denies arthralgias, back pain, joint pain, joint stiffness, joint swelling, myalgias, neck pain or other Neurologic Neurologic: Denies abnormal gait, abnormal speech, confusion, disequilibrium, dizziness, focal weakness, headache(s), numbness, paresthesias, seizure-like activity, seizures, syncope, tingling, tremor(s) or other Psychiatric Psychiatric: Denies anxiety, depression, homicidal ideation, suicidal ideation or other Endocrine Endocrinology: Denies change in body appearance, cold intolerance, excessive sweating, heat intolerance, polydipsia, polyuria or other Hematologic/Lymphatic Hematologic/Lymphatic: Denies anemia, easy bleeding, easy bruising, lymphadenopathy or other Allergic/Immunologic Allergic/Immunologic: Denies rhinitis, hives, eczemia, asthma or other Vital Signs Vital Signs Vital Signs: 06/20/24 10:43 06/20/24 11:43 06/20/24 11:43 Temperature 96.6 F L Temperature Source Temporal Pulse Rate 62 84 Respiratory Rate 19 H 16 Respiratory Effort Blood Pressure 117/79 106/70 Blood Pressure Mean 91 82 Pulse Ox 98 98 Oxygen Delivery Method Room Air Room Air Room Air 06/20/24 11:48 06/20/24 12:00 06/20/24 13:00 Temperature Temperature Source Pulse Rate 78 75 Respiratory Rate 18 14 Respiratory Effort Short of Breath Blood Pressure 106/70 112/71 Blood Pressure Mean 82 84 Pulse Ox 98 95 Oxygen Delivery Method Room Air Room Air 06/20/24 14:00 06/20/24 14:45 06/20/24 15:00 Temperature Temperature Source Pulse Rate 80 111 H Respiratory Rate 18 28 H 20 H Respiratory Effort Blood Pressure 107/91 H 134/97 H Blood Pressure Mean 96 109 Pulse Ox 98 91 Oxygen Delivery Method Room Air Room Air 06/20/24 15:11 06/20/24 15:26 06/20/24 16:00 Temperature 102.2 F H Temperature Source Axillary Pulse Rate 100 Respiratory Rate 20 H Respiratory Effort Blood Pressure 130/90 H Blood Pressure Mean 103 Pulse Ox 95 Oxygen Delivery Method Room Air Room Air Weight Weight: 88.768 kg Body Mass Index (BMI) 27.3 Physical Exam Const alert, oriented x3, no apparent distress and well nourished; Negative for average body habitus or healthy appearing Constitutional Narrative: Overweight, older, white male, sitting up in bed, currently appears comfortable but diaphoretic, appears ill but nontoxic General Appearance: cooperative HEENT normocephalic, head/scalp atraumatic and moist oral mucous membranes; Negative for hearing grossly normal bilaterally HEENT Narrative: Mallampati is 2-3, dentition is poor, moderate hearing loss Eyes PERRL, EOMs intact bilaterally and conjunctivae normal Eyes Narrative: No scleral icterus Neck no lymphadenopathy and supple Neck Narrative: Trachea midline, no thyroid enlargement Resp normal respiratory effort, no retractions, no use of accessory muscles and clear to auscultation bilaterally Resp Narrative: Diminished but clear Auscultation: Negative for rales, rhonchi or wheezes Cardio regular rate, regular rhythm, S1 normal heart sound, S2 normal heart sound, no murmurs, no rub, no gallops, no clicks and no JVD GI normal to inspection, nondistended, normoactive bowel sounds, soft to palpation and non-tender Extremity no clubbing, cyanosis or edema Extremity Narrative: Pedal pulses are 2+ bilaterally Skin no rashes or lesions noted, no wounds, skin turgor normal, no jaundice, no petechiae and no mottling Neuro oriented x3, CN's II-XII intact bilaterally, moves all extremities and no focal motor deficits Speech: speech normal Psych affect normal Psych Narrative: Very pleasant, interacts appropriately Results Lab / Micro Data 06/20/24 10:59 06/20/24 10:59 Labs: Laboratory Results - last 24 hr 06/20/24 10:59: WBC 24.9 H, RBC 4.60, Hgb 15.0, Hct 43.7, MCV 95.0 H, MCH 32.6 H, MCHC 34.3, RDW Std Deviation 49.8 H, RDW Coeff of Tarik 14.3, Plt Count 273, MPV 9.5, Immature Gran % (Auto) 1.000 H, Neut % (Auto) 87.0 H, Lymph % (Auto) 3.6 L, [place] % (Auto) 8.0, Eos % (Auto) 0.0, Baso % (Auto) 0.4, Absolute Neuts (auto) 21.7 H, Absolute Lymphs (auto) 0.89, Nucleated RBC % 0, Differential Comment COMMENT, Diff Path Review March foll, Sodium 124 L, Potassium 3.5, Chloride 88 L, Carbon Dioxide 26.0, Anion Gap 10, BUN 25 H, Creatinine 1.39 H, Estim Creat Clear Calc 49.66, Est GFR (MDRD) Af Amer 64, Est GFR (MDRD) Non-Af 53 L, BUN/Creatinine Ratio 18.0, Glucose 229 H, Calcium 9.2, Total Bilirubin 2.00 H, Direct Bilirubin 0.86 H, AST 77 H, ALT 79 H, Alkaline Phosphatase 122 H, Troponin I High Sens 17, Total Protein 7.8, Albumin 3.0 L, Globulin 4.8 H 06/20/24 12:30: Lactic Acid 1.9 06/20/24 13:14: Troponin I High Sens 13 06/20/24 14:40: Urine Color Yellow, Urine Clarity Sl. Cloudy, Urine pH 6.0, Ur Specific [place] 1.010, Urine Protein 30 H, Urine Glucose (UA) 1000 H, Urine Ketones 5 H, Urine Occult Blood 150 H, Urine Nitrite Negative, Urine Bilirubin Negative, Urine Urobilinogen Normal, Ur Leukocyte Esterase 500 H, Urine RBC 0-5 SEEN, Urine WBC 25-50 SEEN, Ur Squamous Epith Cells 0-5 SEEN, Urine Bacteria 0 SEEN, Urine Mucus 0 SEEN Rhythm Strip Rhythm Strip: Sinus Rhythm Rate: 85 Ectopy: PVC(s) Imaging Radiology Impression Chest X-Ray 06/20/24 11:00 IMPRESSION: Hyperinflation and COPD. No acute abnormality is seen. Electronically Signed: Anibal Jimenez MD at 11:25 EDT , Gallbladder Ultrasound 06/20/24 12:15 IMPRESSION: Mild hepatomegaly and fatty infiltration of the liver. Small right renal cyst. Electronically Signed: Anibal Jimenez MD at 13:22 EDT , Abdomen/Pelvis CT 06/20/24 14:16 IMPRESSION: Diffuse bladder wall thickening. A Briggs catheter is seen within the urinary bladder. Stable prostatic enlargement with indentation of the bladder base. Mild dilatation of the distal abdominal aorta. Electronically Signed: Anibal Jimenez MD at 15:43 EDT , Assessment & Plan Assessment/Plan (1) Acute hyponatremia: (2) Complicated UTI (urinary tract infection): (3) Elevated serum creatinine: (4) Hyperglycemia due to type 2 diabetes mellitus: (5) Abdominal pain, acute, right upper quadrant: (6) Leukocytosis: (7) Transaminitis: (8) Hyperbilirubinemia: PLAN: Plan Acute complicated UTI -Patient with chronic Briggs in place being managed by [facility] -UA is suggestive of infection -Patient with significant leukocytosis and fever -Since patient has chronic indwelling Briggs we will start broad coverage with Zosyn -Exchange Briggs -Imaging does not show any obstruction or perinephritic stranding -Consult ID with chronic Briggs and complicated UTI diagnosis Leukocytosis/transaminitis -Highly suspect this is all related the above infection -Will repeat in a.m. Right upper quadrant pain -Resolved at the time of my evaluation -Imaging is not suggestive of gallbladder disease nor are LFTs/CT abdomen pelvis and gallbladder ultrasound are unremarkable -? If related to infection -Continue to monitor clinically Acute hyponatremia -Sodium on presentation was 124 -Baseline appears to run between 133 and 136 -P.o. intake has been down so likely hypovolemic hyponatremia exacerbated by chlorthalidone use -Hold chlorthalidone -Hydrate and recheck in a.m. -Patient relatively asymptomatic Elevated serum creatinine -Baseline appears to run between 1 and 1.2 -1.39 on admission -Highly suspect related dehydration -IV fluids as ordered -Repeat lab in a.m. 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 -chronic indwelling Briggs present -Exchanged on admission -Continue outpatient follow-up with [facility] GERD -Continue home PPI DM-2 -Hold home oral agents -Accu-Cheks as ordered -SSI -Cardiac/carb controlled diet Hypertension -Continue home amlodipine -Hold home chlorthalidone -Monitor blood pressure for further need -May need to discharge on additional agent and would avoid thiazide diuretics with hyponatremia Hyperlipidemia -continue home statin COPD -Not oxygen dependent -As needed albuterol -continue home as needed guaifenesin for chronic cough -Monitor clinically -Patient with history of tobacco abuse but has quit DVT prophylaxis -Subcu Lovenox CODE STATUS -Full code as verified on admission Charges/Coding Visit Charges Inpatient E&M: 99596 Init Hosp L3
--- NOTE | 2024-06-20 16:39 | ED.RN ---
PT HAD CATHETER UPON ARRIVAL
[2024-06-20] MEDS: Lactated Ringers 1,000 ML 75 ML IV (17:23)
[2024-06-20] MEDS: Acetaminophen 325 MG Tablet 650 MG PO (21:00)
[2024-06-20] MEDS: Temazepam 15 MG Capsule PO (22:24)
[2024-06-20] MEDS: MELATONIN 3 MG TABLET PO (22:25)
[2024-06-20] MEDS: Tamsulosin HCl 0.4 MG Capsule PO (22:25)
[2024-06-20] MEDS: Primidone 50 MG Tablet PO (22:27)
[2024-06-20] MEDS: Piperacil/Tazobactam 3.375 GM in 0.9% Normal Saline (50mL MB+) 50 ML IV (22:27)
[2024-06-20] MEDS: Insulin Glargine-YFGN 100 UNIT/ML Pen 10 UNIT SC (22:29)
--- NOTE | 2024-06-20 22:54 | EKG12_ITS ---
Test Reason : CHEST PAIN Blood Pressure : / mmHG Vent. Rate : 087 BPM Atrial Rate : 087 BPM P-R Int : 148 ms QRS Dur : 076 ms QT Int : 396 ms P-R-T Axes : 060 017 053 degrees QTc Int : 476 ms Sinus rhythm with occasional and consecutive Premature ventricular complexes and Premature atrial com plexes Abnormal ECG Confirmed by AZALEA PRATHER, MICHEAL ([id number]), editor school photograph EMMA HERNANDEZ ([id number]) on 06/22/2024 9:38:18 AM Referred By: Confirmed By:MICHEAL TRISTAN MD
[2024-06-20 23:01] LABS: Bedside Glucose 286 mg/dL (74-106)
[2024-06-21] VITALS (17 sets, daily range): BP systolic 103–137; BP diastolic 57–107; PULSE 71–114; RESP 16–32; TEMP 36.7–39.3; O2SAT 87–98; BMI 27.0
[2024-06-21] MEDS: Piperacil/Tazobactam 3.375 GM in 0.9% Normal Saline (50mL MB+) 50 ML IV (04:30)
[2024-06-21] MEDS: Acetaminophen 325 MG Tablet 650 MG PO ×4 (04:30→21:04)
[2024-06-21] MEDS: Lactated Ringers 1,000 ML 75 ML IV (04:35)
[2024-06-21 07:03] LABS: Absolute Lymphocyte Count 0.62 X10^3/uL (0.83-4.51); Absolute Neutrophil Count 18.8 X10^3/uL (2.0-7.7); Basophil# 0.05 X10^3/uL; Basophil% 0.2 % (0-1); Eosinophil# 0.01 X10^3/uL; Hematocrit 36.7 % (40-54); Hemoglobin 12.8 g/dL (13.0-16.5); Lymphocyte # 0.62 X10^3/ul (0.83-4.51); Mean Corp Hgb Conc 34.9 g/dL (32-36); Mean Corpuscular Hgb 32.8 pg (27.0-32.0); Mean Corpuscular Volume 94.1 fL (80-94); Mean Platelet Vol. 10.2 fl (6.2-12.0); Monocyte# 1.23 X10^3/uL; Monocyte% 5.9 % (0-10); NRBC Flagged by Analyzer 0 % (0-5); Neutrophil # 18.76 X10^3/uL (2.7-7.7); Neutrophil % 90.3 % (47-70); Platelet Count 218 K/mm3 (150-450); RBC Distribution Width CV 14.1 % (11.6-14.6); RBC Distribution Width SD 48.1 fl (35.1-43.9); White Blood Count 20.8 K/mm3 (4.4-11.0)
[2024-06-21 07:23] LABS: ALB/GLOB Ratio 0.6 RATIO (0.9-2.4); AST(SGOT) 84 U/L (15-37); Alanine Aminotransfer ALT/SGPT 82 U/L (16-61); Albumin, Serum 2.3 g/dL (3.2-5.0); Alkaline Phosphatase 124 U/L (45-117); Anion Gap 11 (5-15); BUN 25 mg/dL (7-18); BUN/Creat Ratio 21.7 RATIO (10-20); Calcium,Total 8.4 mg/dL (8.5-10.1); Chloride 90 mmol/L (98-107); Creatinine, Serum 1.15 mg/dL (0.70-1.30); EST Glomerular Filtration Rate 66 mL/min (>60); Est Glom Filt Rate - Afr Amer 80 mL/min (>60); Estimated Creatinine Clearance 60.02 ml/min; Globulin 3.9 g/dL (2.2-4.2); Glucose 198 mg/dL (74-106); Magnesium 2.1 mg/dL (1.6-2.6); Phosphorus 3.4 mg/dL (2.5-4.9); Protein, Total 6.2 g/dL (6.4-8.2); Sodium Level 125 mmol/L (136-145)
[2024-06-21] MEDS: Insulin Lispro 100 UNIT/ML INSULN.PEN SC ×3 (07:43→15:57)
[2024-06-21] MEDS: Multivitamins,Therapeutic Tablet 1 TABLET PO (07:44)
[2024-06-21] MEDS: Atorvastatin Calcium 40 MG Tablet PO (07:44)
[2024-06-21] MEDS: Aspirin 81 MG TAB.CHEW PO (07:44)
[2024-06-21] MEDS: Pantoprazole Sodium 20 MG Tablet PO (07:44)
[2024-06-21] MEDS: amLODIPine 10 MG Tablet PO (07:44)
[2024-06-21] MEDS: Enoxaparin 40 MG/0.4 ML Syringe SC (07:44)
[2024-06-21] MEDS: Fluticasone 0.05% 1 SPRAY NASAL.SRY NASAL (07:45)
[2024-06-21 07:57] LABS: Bedside Glucose 181 mg/dL (74-106)
[2024-06-21] MEDS: predniSONE 20 MG Tablet 40 MG PO (08:35)
[2024-06-21] MEDS: Ipratropium/Albuterol Sulfate 3 ML AMPUL.NEB INHALATION ×4 (09:48→19:39)
--- NOTE | 2024-06-21 10:17 | PCM.PN.HOSP ---
Subjective Subjective Feels little better than when he came in. No issues overnight. He was placed on oxygen he does have a slight wheeze on expiration Objective Data Objective Data Vital Signs: Vital Signs Temp Pulse Resp BP Pulse Ox O2 Del Method O2 Flow Rate 99 F 98 30 H 103/65 87 Nasal Cannula 1 06/21/24 08:09 06/21/24 09:49 06/21/24 09:49 06/21/24 08:09 06/21/24 10:01 06/21/24 10:01 06/21/24 10:01 Oxygen Flow Rate (L/min) 1 Oxygen Delivery Method Nasal Cannula Weight: 192 lb 14.472 oz Body Mass Index (BMI) 27.0 Intake & Output: Intake and Output for Last 24 Hours 06/20/24 06/21/24 06/22/24 03:59 03:59 03:59 Intake Total 3100 / 3100 2390 / 2390 Output Total 1250 / 1250 1350 / 1350 Balance 1850 / 1850 1040 / 1040 Lab / Micro Data 06/21/24 06:03 06/21/24 06:03 Labs: Laboratory Results - last 24 hr 06/20/24 10:59: WBC 24.9 H, RBC 4.60, Hgb 15.0, Hct 43.7, MCV 95.0 H, MCH 32.6 H, MCHC 34.3, RDW Std Deviation 49.8 H, RDW Coeff of Tarik 14.3, Plt Count 273, MPV 9.5, Immature Gran % (Auto) 1.000 H, Neut % (Auto) 87.0 H, Lymph % (Auto) 3.6 L, [place] % (Auto) 8.0, Eos % (Auto) 0.0, Baso % (Auto) 0.4, Absolute Neuts (auto) 21.7 H, Absolute Lymphs (auto) 0.89, Nucleated RBC % 0, Differential Comment COMMENT, Diff Path Review March, Sodium 124 L, Potassium 3.5, Chloride 88 L, Carbon Dioxide 26.0, Anion Gap 10, BUN 25 H, Creatinine 1.39 H, Estim Creat Clear Calc 49.66, Est GFR (MDRD) Af Amer 64, Est GFR (MDRD) Non-Af 53 L, BUN/Creatinine Ratio 18.0, Glucose 229 H, Calcium 9.2, Total Bilirubin 2.00 H, Direct Bilirubin 0.86 H, AST 77 H, ALT 79 H, Alkaline Phosphatase 122 H, Troponin I High Sens 17, Total Protein 7.8, Albumin 3.0 L, Globulin 4.8 H 06/20/24 12:30: Lactic Acid 1.9 06/20/24 13:14: Troponin I High Sens 13 06/20/24 14:40: Urine Color Yellow, Urine Clarity Sl. Cloudy, Urine pH 6.0, Ur Specific [place] 1.010, Urine Protein 30 H, Urine Glucose (UA) 1000 H, Urine Ketones 5 H, Urine Occult Blood 150 H, Urine Nitrite Negative, Urine Bilirubin Negative, Urine Urobilinogen Normal, Ur Leukocyte Esterase 500 H, Urine RBC 0-5 SEEN, Urine WBC 25-50 SEEN, Ur Squamous Epith Cells 0-5 SEEN, Urine Bacteria 0 SEEN, Urine Mucus 0 SEEN 06/20/24 22:22: POC Glucose 286 H 06/21/24 06:03: WBC 20.8 H, RBC 3.90 L, Hgb 12.8 L, Hct 36.7 L, MCV 94.1 H, MCH 32.8 H, MCHC 34.9, RDW Std Deviation 48.1 H, RDW Coeff of Tarik 14.1, Plt Count 218, MPV 10.2, Immature Gran % (Auto) 0.600, Neut % (Auto) 90.3 H, Lymph % (Auto) 3.0 L, [place] % (Auto) 5.9, Eos % (Auto) 0.0, Baso % (Auto) 0.2, Absolute Neuts (auto) 18.8 H, Absolute Lymphs (auto) 0.62 L, Nucleated RBC % 0, Sodium 125 L, Potassium 3.0 L, Chloride 90 L, Carbon Dioxide 24.0, Anion Gap 11, BUN 25 H, Creatinine 1.15, Estim Creat Clear Calc 60.02, Est GFR (MDRD) Af Amer 80, Est GFR (MDRD) Non-Af 66, BUN/Creatinine Ratio 21.7 H, Glucose 198 H, Hemoglobin A1c 10.0 H, Calcium 8.4 L, Phosphorus 3.4, Magnesium 2.1, Total Bilirubin 0.90, AST 84 H, ALT 82 H, Alkaline Phosphatase 124 H, Total Protein 6.2 L, Albumin 2.3 L, Globulin 3.9, Albumin/Globulin Ratio 0.6 L 06/21/24 07:38: POC Glucose 181 H Micro: Microbiology 06/20/24 15:25 Blood Culture (Wb) - Anticubital Right Blood Culture - Preliminary Radiography Diagnostic Testing: Radiology Impression Chest X-Ray 06/20/24 11:00 IMPRESSION: Hyperinflation and COPD. No acute abnormality is seen. Electronically Signed: Anibal Jimenez MD at 11:25 EDT , Gallbladder Ultrasound 06/20/24 12:15 IMPRESSION: Mild hepatomegaly and fatty infiltration of the liver. Small right renal cyst. Electronically Signed: Anibal Jimenez MD at 13:22 EDT , Abdomen/Pelvis CT 06/20/24 14:16 IMPRESSION: Diffuse bladder wall thickening. A Briggs catheter is seen within the urinary bladder. Stable prostatic enlargement with indentation of the bladder base. Mild dilatation of the distal abdominal aorta. Electronically Signed: Anibal Jimenez MD at 15:43 EDT , Rhythm Strip Rhythm Strip: Sinus Rhythm Rate: 85 Ectopy: PVC(s) Physical Exam Narrative General: Alert, Oriented x3, Cooperative, No apparent distress HEENT: Atraumatic, PERRLA, EOMI, Normocephalic Oral: Moist Mucosa Neck: Supple, No JVD Lungs: Diminished, Normal air movement, No rhonchi, scattered wheeze, No rales Cardiovascular: Regular rate, Regular Rhythm, Normal S1, Normal S2, No murmurs Abdomen: Soft, Non Tender, Non-Distended, No Hepato-splenomegaly Extremities: No edema, Capillary Refill Less than 3 Seconds Skin: No rashes, No breakdown Musculoskeletal: No Tenderness to Palpation of Joints or Extremities Neurological: No focal neurological deficits, Motor Exam 5/5 strength throughout, Sensory exam intact to light touch and pain Psych/Mental Status: Normal Affect, Appropriate Assessment & Plan Assessment/Plan (1) Complicated UTI (urinary tract infection): PLAN: Plan 1. Acute UTI/hyponatremia ? She does have a history of chronic Briggs last change was in April ? Will replace Briggs today ? Continue with antibiotics ? Cultures pending ? ID has been consulted ? Sodium was 125, continue with LR, will hold chlorthalidone and may need to be held on discharge as well ? Renal function is improving, will continue to monitor 2. Essential HTN/HLD ? Blood pressures are currently stable ? Continue to hold chlorthalidone secondary to the hyponatremia ? Will monitor make adjustments as necessary ? Continue with statin 3. DM2 ? Stabilized?hold home medications ? Accu-Cheks ACHS ? Sliding scale insulin 4. GERD ? Stable ? Continue with PPI 5. COPD ? Currently on oxygen but weaning ? Given the left slight wheezing will put him on breathing treatments and prednisone 6. BPH with obstruction ? Stable ? Continue with Flomax ? Will exchange Briggs DVT: Lovenox Charges/Coding Visit Charges Inpatient E&M: 18292 Subs Hosp L2
[2024-06-21] MEDS: Cefepime HCl 2 GM in 0.9% Normal Saline (100mL MB+) 100 ML IV ×3 (10:36→20:03)
--- NOTE | 2024-06-21 10:40 | CON.PCM.ID_ITS ---
Assessment & Plan Assessment/Plan (1) Complicated UTI (urinary tract infection): PLAN: 3rd infection in 2 months, including bacteremia at end of April. 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 With recent enterobacter, will change zosyn to cefepime. Some bladder thickening, but no stones or hydro seen on CT. Will follow, thank you HPI Consult Data Date of Consult: 06/21/24 HPI Narrative Reason for Consultation: uti HPI Narrative: NAUN GARCÍA, is a 73 M with chronic aguilera, follows with Dr. Kyle, presented 06/20 with 3-4 days progressive weakness, lower abd pain. Developed fever, came to ED. Given cipro 2 weeks ago from ED here for enterobacter uti. No n/v/d. Admitted here on ceftriaxone, then changed to zosyn. Feeling better, at bedside provided additional history. Full ROS performed and neg except as noted above. PFSH Medical History Leukocytosis Prostate disease Dietary restriction Lipoma of back Sebaceous cyst Aneurysm Anxiety Excessive bleeding Chronic cough History of edema History of stress test History of echocardiogram Degenerative joint disease of hand Hyperlipidemia Benign essential hypertension Wears hearing aid Wears glasses Wears dentures Depression Alcohol use Diabetes History of steroid therapy Arthritis Hepatitis Easy bruising Gastric reflux Shortness of breath on exertion On home oxygen therapy Leg cramps Former smoker Hypertension COPD (chronic obstructive pulmonary disease) Smoking greater than 40 pack years Home Medications ?Medication ?Instructions ?Recorded ?Last Taken ?Type amlodipine 10 mg tablet 10 mg PO DAILY HTN 12/23/21 06/19/24 History melatonin 3 mg tablet 3 mg PO QHS sleep aid 12/23/21 06/19/24 History multivitamin 1 tab PO DAILY multivitamin 12/23/21 06/19/24 History tamsulosin 0.4 mg capsule 0.4 mg PO QHS urinary retention 12/23/21 06/19/24 History guaifenesin 200 mg tablet 200 mg PO Q4H PRN Cough 02/21/22 Unknown History albuterol sulfate 90 mcg/actuation 1 inh inhalation BID COPD 03/24/22 07/01/23 History aerosol inhaler (Ventolin HFA) fluticasone propionate 50 1 spray intranasal DAILY nose spray 04/29/22 06/19/24 History mcg/actuation nasal spray,suspension pantoprazole 20 mg tablet,delayed 20 mg PO DAILY GERD 04/29/22 Unknown History release atorvastatin 40 mg PO DAILY CHOLESTEROL 10/13/22 Unknown History chlorthalidone 25 mg tablet 25 mg PO DAILY HTN 04/29/23 06/19/24 History glipizide 10 mg tablet 10 mg PO BID Diabetes 04/29/23 06/19/24 History potassium chloride 20 mEq 20 meq PO BID potassium #6 tabs 06/16/23 Unknown Rx tablet,extended release(part/cryst) aspirin 81 mg capsule 81 mg PO DAILY HEART 05/05/24 Unknown History primidone 50 mg tablet (Mysoline) 50 mg PO QHS primidone 05/05/24 06/19/24 History Allergy/AdvReac Type Severity Reaction Status Date / Time adhesive tape AdvReac Intermediate Rash Verified 06/20/24 10:46 gabapentin AdvReac Unknown PT UNSURE Verified 06/20/24 10:46 OF REACTION rosuvastatin AdvReac Unknown PT UNSURE Verified 06/20/24 10:46 OF REACTION hydroxyzine AdvReac NEEDS Verified 06/20/24 10:46 FOLLOW-UP Family History Father Cancer Heart disease Mother Heart disease Myocardial infarction Surgical History History of excision of mass History of cataract surgery History of esophagogastroduodenoscopy (EGD) Hx of colonoscopy History of hand surgery Hx of appendectomy H/O wrist surgery Social History household members: spouse Smoking Status: Former smoker quit date: 09/26/21 pack-years: 90 Tobacco: How many years used: 60 alcohol intake: former substance use type: does not use Physical Exam Const alert, oriented x3 and no apparent distress General Appearance: cooperative HEENT normocephalic and head/scalp atraumatic Eyes PERRL and EOMs intact bilaterally Neck supple and No nodes Resp normal air movement and clear to auscultation bilaterally Cardio regular rate and regular rhythm GI soft to palpation, non-tender and non-distended Extremity General Extremity: Negative for edema Skin no rashes or lesions noted Neuro CN's II-XII intact bilaterally Lab / Micro Data Attestation: I reviewed the patient's lab results. 06/21/24 06:03 06/21/24 06:03 Labs: Laboratory Results - last 24 hr 06/20/24 10:59: WBC 24.9 H, RBC 4.60, Hgb 15.0, Hct 43.7, MCV 95.0 H, MCH 32.6 H , MCHC 34.3, RDW Std Deviation 49.8 H, RDW Coeff of Tarik 14.3, Plt Count 273, MPV 9.5, Immature Gran % (Auto) 1.000 H, Neut % (Auto) 87.0 H, Lymph % (Auto) 3.6 L, [place] % (Auto) 8.0, Eos % (Auto) 0.0, Baso % (Auto) 0.4, Absolute Neuts (auto) 21.7 H, Absolute Lymphs (auto) 0.89, Nucleated RBC % 0, Differential Comment COMMENT, Diff Path Review March, Sodium 124 L, Potassium 3.5, Chloride 88 L, Carbon Dioxide 26.0, Anion Gap 10, BUN 25 H, Creatinine 1.39 H, Estim Creat Clear Calc 49.66, Est GFR (MDRD) Af Amer 64, Est GFR (MDRD) Non-Af 53 L, BUN/Creatinine Ratio 18.0, Glucose 229 H, Calcium 9.2, Total Bilirubin 2.00 H, D irect Bilirubin 0.86 H, AST 77 H, ALT 79 H, Alkaline Phosphatase 122 H, Troponin I High Sens 17, Total Protein 7.8, Albumin 3.0 L, Globulin 4.8 H 06/20/24 12:30: Lactic Acid 1.9 06/20/24 13:14: Troponin I High Sens 13 06/20/24 14:40: Urine Color Yellow, Urine Clarity Sl. Cloudy, Urine pH 6.0, Ur Specific [place] 1.010, Urine Protein 30 H, Urine Glucose (UA) 1000 H, Urine Ketones 5 H, Urine Occult Blood 150 H, Urine Nitrite Negative, Urine Bilirubin Negative, Urine Urobilinogen Normal, Ur Leukocyte Esterase 500 H, Urine RBC 0-5 SEEN, Urine WBC 25-50 SEEN, Ur Squamous Epith Cells 0-5 SEEN, Urine Bacteria 0 SEEN, Urine Mucus 0 SEEN 06/20/24 22:22: POC Glucose 286 H 06/21/24 06:03: WBC 20.8 H, RBC 3.90 L, Hgb 12.8 L, Hct 36.7 L, MCV 94.1 H, MCH 32.8 H, MCHC 34.9, RDW Std Deviation 48.1 H, RDW Coeff of Tarik 14.1, Plt Count 218, MPV 10.2, Immature Gran % (Auto) 0.600, Neut % (Auto) 90.3 H, Lymph % (Auto) 3.0 L, [place] % (Auto) 5.9, Eos % (Auto) 0.0, Baso % (Auto) 0.2, Absolute Neuts (auto) 18.8 H, Absolute Lymphs (auto) 0.62 L, Nucleated RBC % 0, Sodium 125 L, Potassium 3.0 L, Chloride 90 L, Carbon Dioxide 24.0, Anion Gap 11, BUN 25 H, Creatinine 1.15, Estim Creat Clear Calc 60.02, Est GFR (MDRD) Af Amer 80, Est GFR (MDRD) Non-Af 66, BUN/Creatinine Ratio 21.7 H, Glucose 198 H, Hemoglobin A1c 10.0 H, Calcium 8.4 L, Phosphorus 3.4, Magnesium 2.1, Total Bilirubin 0.90, AST 84 H, ALT 82 H, Alkaline Phosphatase 124 H, Total Protein 6.2 L, Albumin 2.3 L, Globulin 3.9, Albumin/Globulin Ratio 0.6 L 06/21/24 07:38: POC Glucose 181 H Micro: Microbiology 06/20/24 14:40 Urine, Midstream Urine Culture - Preliminary Presumptive E. coli 06/20/24 15:25 Blood Culture (Wb) - Anticubital Right Blood Culture - Preliminary Rhythm Strip Rhythm Strip: Sinus Rhythm Rate: 85 Ectopy: PVC(s) Imaging Radiology Impression Chest X-Ray 06/20/24 11:00 IMPRESSION: Hyperinflation and COPD. No acute abnormality is seen. Electronically Signed: Anibal Jimenez MD at 11:25 EDT , Gallbladder Ultrasound 06/20/24 12:15 IMPRESSION: Mild hepatomegaly and fatty infiltration of the liver. Small right renal cyst. Electronically Signed: Anibal Jimenez MD at 13:22 EDT , Abdomen/Pelvis CT 06/20/24 14:16 IMPRESSION: Diffuse bladder wall thickening. A Aguilera catheter is seen within the urinary bladder. Stable prostatic enlargement with indentation of the bladder base. Mild dilatation of the distal abdominal aorta. Electronically Signed: Anibal Jimenez MD at 15:43 EDT ,
[2024-06-21] MEDS: Potassium Chloride Oral Tablet 20 MEQ 40 MEQ PO (11:03)
[2024-06-21 11:28] LABS: Bedside Glucose 212 mg/dL (74-106)
--- NOTE | 2024-06-21 12:20 | CASEMGMT ---
JAY ROA Assessment Face to Face with patient for initial transition planning/care coordination assessment. JAY ROA introduced self and role at [facility], pt voices understanding. Pt is A&Ox4 and is resting comfortably in bed and is calm. Care providers, pharmacy, and demographics verified. Admitting dx: UTI IKEE Strata: 3 PCP: [facility] Specialists: Pulmonary through the [place] Preferred Pharmacy: [facility] Insurance: [place], [facility] (A/B) Prescription Benefit: Yes LNOK: Karma Cade (SO) Living Arrangements: Pt lives with his SO in a single story home and states that there are 7 steps to enter without handrails. ADLs/IADLs: Reports independent Transportation: Self, SO. Denies concerns DME: Working [employer] and supplies. Home oxygen supplies through [facility]. TC to [facility] and they state that the pt current order states 3L with exertion. Pt reports that he has a concentrator, portable tanks, and a pulse ox. HHC/SNF: Denies Hx Pt?s goal: Home with SO Plan: TBD. Anticipate eventual DC home with oxygen & (potentially) additional therapy. Pt has a chronic Briggs that he manages. ID is consulted for the UTI. PT/OT are ordered and will evaluate. CM to follow. Chris Vitale RN, CM
[2024-06-21 13:42] LABS: Allen Test Positive; Base Excess -3 mmol/L (-2 to +2); Bicarbonate 20.9 mmol/L (22-26); Blood Gas Specimen Type ART; Mode Not entered; O2 Delivery Device Not entered; PO2 50 mmHG (75-100); SITE L Radial; SO2 89 % (95-99); Total Carbon Dioxide 22 mmol/L; pCO2 27.9 mmHg (35-45); pH 7.48 (7.35-7.45)
[2024-06-21] MEDS: 0.9% Normal Saline (1000mL) 1,000 ML 100 ML IV (14:20)
[2024-06-21 15:29] LABS: Pathologist Review Reviewed
[2024-06-21 16:18] LABS: Bedside Glucose 256 mg/dL (74-106)
[2024-06-21] MEDS: Ibuprofen 200 MG Tablet PO (18:10)
[2024-06-21] MEDS: Primidone 50 MG Tablet PO (20:02)
[2024-06-21] MEDS: Tamsulosin HCl 0.4 MG Capsule PO (20:03)
[2024-06-21] MEDS: MELATONIN 3 MG TABLET PO (20:03)
[2024-06-21] MEDS: Insulin Glargine-YFGN 100 UNIT/ML Pen 10 UNIT SC (20:03)
[2024-06-22] VITALS (14 sets, daily range): BP systolic 101–114; BP diastolic 53–76; PULSE 65–85; RESP 16–26; TEMP 36.5–37.8; O2SAT 85–98; BMI 28.2
[2024-06-22] MEDS: 0.9% Normal Saline (1000mL) 1,000 ML 100 ML IV ×2 (00:05→16:02)
[2024-06-22] MEDS: Acetaminophen 325 MG Tablet 650 MG PO (05:08)
[2024-06-22] MEDS: Cefepime HCl 2 GM in 0.9% Normal Saline (100mL MB+) 100 ML IV ×3 (05:08→20:32)
[2024-06-22] MEDS: Albuterol 2.5 MG/3 ML VIAL.NEB. INHALATION (05:39)
[2024-06-22] MEDS: Insulin Lispro 100 UNIT/ML INSULN.PEN SC ×3 (06:07→16:02)
[2024-06-22 06:36] LABS: Bedside Glucose 184 mg/dL (74-106)
[2024-06-22 06:44] LABS: Absolute Lymphocyte Count 0.52 X10^3/uL (0.83-4.51); Absolute Neutrophil Count 14.9 X10^3/uL (2.0-7.7); Basophil# 0.03 X10^3/uL; Basophil% 0.2 % (0-1); Eosinophil# 0.01 X10^3/uL; Eosinophils% 0.1 % (0-5); Hemoglobin 12.4 g/dL (13.0-16.5); Lymphocyte # 0.52 X10^3/ul (0.83-4.51); Lymphocyte % 3.1 % (19-41); Mean Corp Hgb Conc 34.4 g/dL (32-36); Mean Platelet Vol. 10.5 fl (6.2-12.0); Monocyte# 1.05 X10^3/uL; Monocyte% 6.3 % (0-10); NRBC Flagged by Analyzer 0 % (0-5); Neutrophil # 14.86 X10^3/uL (2.7-7.7); Neutrophil % 89.2 % (47-70); POSITIVE DIFFERENTIAL YES; Platelet Count 194 K/mm3 (150-450); RBC Distribution Width CV 14.1 % (11.6-14.6); Red Blood Count 3.87 M/mm3 (4.6-6.2); White Blood Count 16.7 K/mm3 (4.4-11.0)
[2024-06-22 07:00] LABS: Anion Gap 12 (5-15); BUN 26 mg/dL (7-18); BUN/Creat Ratio 25.2 RATIO (10-20); Calcium,Total 8.1 mg/dL (8.5-10.1); Chloride 94 mmol/L (98-107); Creatinine, Serum 1.03 mg/dL (0.70-1.30); EST Glomerular Filtration Rate 75 mL/min (>60); Est Glom Filt Rate - Afr Amer 91 mL/min (>60); Estimated Creatinine Clearance 72.75 ml/min; Glucose 181 mg/dL (74-106); Potassium 2.9 mmol/L (3.5-5.1); Sodium Level 127 mmol/L (136-145)
[2024-06-22] MEDS: Ipratropium/Albuterol Sulfate 3 ML AMPUL.NEB INHALATION ×4 (07:17→19:36)
--- NOTE | 2024-06-22 07:31 | PN.HOSP_ITS ---
Reason for Visit Reason for Visit: Diagnoses Elevated white blood cell count, unspecified (06/20/24) Type 2 diabetes mellitus with hyperglycemia (06/20/24) Other disorders of bilirubin metabolism (06/20/24) Hypo-osmolality and hyponatremia (06/20/24) Urinary tract infection, site not specified (06/20/24) Right upper quadrant pain (06/20/24) Elevation of levels of liver transaminase levels (06/20/24) Other specified abnormal findings of blood chemistry (06/20/24) Subjective Subjective Having transient fevers with associated rigors, mottling and confusion. When fever resolves, the other symptoms resolve. Objective Data Objective Data Vital Signs: Vital Signs Temp Pulse Resp BP Pulse Ox O2 Del Method O2 Flow Rate 36.8 C 85 20 H 113/76 92 Nasal Cannula 4 06/22/24 05:14 06/22/24 07:17 06/22/24 07:17 06/22/24 02:21 06/22/24 07:17 06/22/24 07:17 06/22/24 07:17 Oxygen Flow Rate (L/min) 4 Oxygen Delivery Method Nasal Cannula Weight: 91.4 kg Body Mass Index (BMI) 28.2 Intake & Output: Intake and Output for Last 24 Hours 06/20/24 06/21/24 06/22/24 23:59 23:59 23:59 Intake Total 1050 / 3050 7164.17 / 7164.17 971.66 / 971.66 Output Total 350 / 1250 4900 / 4900 2300 / 2300 Balance 700 / 1800 2264.17 / 2264.17 -1328.34 / -1328.34 Lab / Micro Data 06/22/24 06:06 06/22/24 06:06 Labs: Laboratory Results - last 24 hr 06/20/24 10:59: Diff Path Review Reviewed 06/21/24 06:03: Hemoglobin A1c 10.0 H 06/21/24 07:38: POC Glucose 181 H 06/21/24 11:01: POC Glucose 212 H 06/21/24 15:55: POC Glucose 256 H 06/22/24 06:05: POC Glucose 184 H 06/22/24 06:06: WBC 16.7 H, RBC 3.87 L, Hgb 12.4 L, Hct 36.0 L, MCV 93.0, MCH 32.0, MCHC 34.4, RDW Std Deviation 48.0 H, RDW Coeff of Tarik 14.1, Plt Count 194, MPV 10.5, Immature Gran % (Auto) 1.100 H, Neut % (Auto) 89.2 H, Lymph % (Auto) 3.1 L, [place] % (Auto) 6.3, Eos % (Auto) 0.1, Baso % (Auto) 0.2, Absolute Neuts (auto) 14.9 H, Absolute Lymphs (auto) 0.52 L, Nucleated RBC % 0, Sodium 127 L, P otassium 2.9 L, Chloride 94 L, Carbon Dioxide 21.0, Anion Gap 12, BUN 26 H, Creatinine 1.03, Estim Creat Clear Calc 72.75, Est GFR (MDRD) Af Amer 91, Est GFR (MDRD) Non-Af 75, BUN/Creatinine Ratio 25.2 H, Glucose 181 H, Calcium 8.1 L Micro: Microbiology 06/20/24 14:40 Urine, Midstream Urine Culture - Preliminary Presumptive E. coli 06/20/24 15:25 Blood Culture (Wb) - Anticubital Right Blood Culture - Preliminary ABG Data ABG results: ABG 06/21/24 13:39 Specimen Type ART Sample Site L Radial pH 7.48 H Bicarbonate Actual 20.9 L Total CO2 22 Base Excess -3 L O2 Saturation 89 L ABG pCO2 27.9 L ABG pO2 50 L Dat Test Positive O2 Delivery Device Not entered Vent Mode Not entered Rhythm Strip Rhythm Strip: Sinus Rhythm Rate: 85 Ectopy: PVC(s) Physical Exam Const alert and no apparent distress HEENT head/scalp atraumatic and moist oral mucous membranes Neck no lymphadenopathy Resp normal respiratory effort, no retractions, no use of accessory muscles and clear to auscultation bilaterally Cardio regular rate, regular rhythm, S1 normal heart sound and S2 normal heart sound GI normal to inspection, nondistended, normoactive bowel sounds, soft to palpation, non-tender and non-distended Extremity normal to inspection Neuro Sensorium / Orientation: awake and alert Assessment & Plan Assessment/Plan (1) Complicated UTI (urinary tract infection): PLAN: Plan Sepsis * POA with qSOFA of 2 and SIRS of 4 * 2/2 UTI and bacteremia * supportive mgmt. CAUTI * catheter changed * follow up Cx. Prelim E. coli. * abx with Cefepime * ID following Bacteremia * GNR, suspect same organism at the UTI * monitor Hyponatremia * ongoing * hold chlorthalidone * continue NS IVF. * monitor Hypokalemia * Magnesium WNL * replace more potassium (previously replaced) * monitor DM2, uncontrolled * a1c 10 * on glipizide at home * now on glargine 10 and SSI. Acute COPD exacerbation: * wean oxygen as tolerted * BDs, prednisone Chronic conditions: * Essential HTN: controlled. chlorthalidone held given hyponatremia * HLD: statin * GERD: PPI * BPH with obstruction: tamsulosin. Chronic aguilera. VTE prophylaxis: enoxparin. Charges/Coding Visit Charges Inpatient E&M: 10113 [facility] L3
[2024-06-22] MEDS: Pantoprazole Sodium 20 MG Tablet PO (07:39)
[2024-06-22] MEDS: Fluticasone 0.05% 1 SPRAY NASAL.SRY NASAL (07:39)
[2024-06-22] MEDS: predniSONE 20 MG Tablet 40 MG PO (07:39)
[2024-06-22] MEDS: Aspirin 81 MG TAB.CHEW PO (07:39)
[2024-06-22] MEDS: Multivitamins,Therapeutic Tablet 1 TABLET PO (07:39)
[2024-06-22] MEDS: Enoxaparin 40 MG/0.4 ML Syringe SC (07:39)
[2024-06-22] MEDS: Atorvastatin Calcium 40 MG Tablet PO (07:40)
[2024-06-22] MEDS: Nystatin Powder 15gm Bottle 1 APPLIC TOPICAL ×2 (07:40→20:32)
[2024-06-22] MEDS: amLODIPine 10 MG Tablet PO (07:41)
[2024-06-22] MEDS: 0.9% Normal Saline (1000mL) 1,000 ML 150 ML IV (08:09)
[2024-06-22] MEDS: Potassium Chloride Oral Tablet 20 MEQ 40 MEQ PO ×2 (08:09→16:03)
[2024-06-22] MEDS: Ibuprofen 400 MG Tablet PO ×2 (10:05→20:34)
[2024-06-22 11:30] LABS: Bedside Glucose 277 mg/dL (74-106)
--- NOTE | 2024-06-22 13:25 | PCM.PN.ID ---
Physical Exam Narrative Feeling much better, no abd pain, some sweats, no n/v/d. Const alert and no apparent distress Resp normal air movement and clear to auscultation bilaterally Cardio regular rate and regular rhythm GI soft to palpation, non-tender and non-distended Skin no rashes or lesions noted ID ID: Route of nutrition/ use of supplements: [] Nutritional Intake: [] IV Site: [] Aguilera Catheter: [] Assessment & Plan Assessment/Plan (1) Complicated UTI (urinary tract infection): PLAN: 3rd infection in 2 months, including bacteremia at end of April and again now. 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 With recent enterobacter, cont cefepime. Some bladder thickening, but no stones or hydro seen on CT. Feeling better, fever curve improved, wbc better. Ucx with ecoli. Will follow, thank you (2) Bacteremia due to Gram-negative bacteria:
--- NOTE | 2024-06-22 15:35 | CASEMGMT ---
JAY ROA NOTE: Per pt, he does not have portable O2 tank @ home, stating he only has a concentrator @ home from [facility]. He states he used to have portability, but states he was told he no longer needed it and it was picked up/removed from his home. JAY ROA placed call to RT Alina @ the [place]. She states pt should have a concentrator in his home, a 14-hr back-up tank, and portability w/conserving device. She clarifies that pt's home O2 orders are for 2 l/m w/exertion and 3 l/m w/conserving device. Home O2 verification updated in [facility]. She states pt's O2 order @ beginning of June,, and if pt does still need Home o2 @ 2l/m w/exertion or if there are any changes to his prior home O2 order, a new [place] Home O2 Program Data form will need faxed to the [place] and they will need this done 24-hrs in advance in order for portable O2 tank to be delivered to [facility]. Diana THOMPSON CM, made aware. Home O2 amb testing has been completed and pt qualifies for O2 @ 2l/m @ rest and w/exertion. Home O2 Program Data form completed and this JAY ROA reviewed Risk Factor questions w/pt. Form faxed to [place] @ this time. Call placed to Alina @ the [place]. She was made aware. She states she will work on getting an order from the [place] physician and plans to have [facility] deliver O2 to pt's room tomorrow. JAY ROA to notify Alina if pt does not discharge home tomorrow. JAY ROA spoke w/pt about further discharge planning. Pt ambulated w/therapy today 50' x 2, min A of 1, additional therapy recommended. Pt states he feels safe to discharge home and declines wanting HHC. He is interested in OP therapy and made aware of OP locations in [facility]. He was made aware a script can be provided prior to discharge and he can take to any location of choice. He is aware OP therapy could be billed under his [facility] w/[facility]'s script, but if he wishes to get [facility], that he would need to talk w[facility]the [facility] to get order from them. He voices understanding. He states he most likely will go to OP therapy @ [facility] using the script from [facility]. Script obtained from Dr Dixon and provided to pt. Pt denies having any further discharge needs at this time. Jessica EMERSONN RN CM
[2024-06-22 16:26] LABS: Bedside Glucose 369 mg/dL (74-106)
[2024-06-22] MEDS: Insulin Glargine-YFGN 100 UNIT/ML Pen 10 UNIT SC (20:31)
[2024-06-22] MEDS: Tamsulosin HCl 0.4 MG Capsule PO ×2 (20:31→20:34)
[2024-06-22] MEDS: MELATONIN 3 MG TABLET PO (20:32)
[2024-06-22] MEDS: Primidone 50 MG Tablet PO (20:33)
[2024-06-22 22:39] LABS: Bedside Glucose 287 mg/dL (74-106)
[2024-06-23] VITALS (34 sets, daily range): BP systolic 98–141; BP diastolic 50–116; PULSE 64–154; RESP 11–50; TEMP 36.4–38.7; O2SAT 85–100; BMI 28.1; BMI 28.8
[2024-06-23] MEDS: 0.9% Normal Saline (1000mL) 1,000 ML 100 ML IV (01:56)
[2024-06-23] MEDS: Albuterol 2.5 MG/3 ML VIAL.NEB. INHALATION (02:18)
[2024-06-23] MEDS: guaiFENesin 10 ML UDC (200MG/10ML) 20 ML PO (03:30)
--- NOTE | 2024-06-23 03:45 | RAD_ITS ---
INDICATION: Respiratory distress EXAMINATION/TECHNIQUE: X-RAY - XR Chest 1 View COMPARISON: Prior study dated: 06/20/2024 FINDINGS: LINES/DEVICES: None. LUNGS: The lungs are well expanded. Bronchial wall thickening present. No consolidation or effusion. No pneumothorax. MEDIASTINUM AND CARDIOVASCULAR STRUCTURES: Cardiac silhouette not enlarged. Central airways and mediastinal contour are unremarkable. BONES AND SOFT TISSUES: No acute abnormality. RAD/Chest 1 View (Portable) IMPRESSION: No consolidation. Bronchial wall thickening can be seen with a small airways process such as asthma or atypical/viral infection. Alternatively this could be associated with mild edema. Electronically Signed: Piero Vasquez MD at 4:34 EDT ,
[2024-06-23] MEDS: MethylPREDNISolone 125 MG/2 ML Vial IV (03:53)
[2024-06-23] MEDS: LORazepam 2 MG/ML Syringe 0.5 MG IV ×2 (03:55→04:07)
[2024-06-23] MEDS: 0.9% Saline Lock 10 ML Syringe IV ×2 (04:01→04:47)
[2024-06-23] MEDS: Ipratropium/Albuterol Sulfate 3 ML AMPUL.NEB INHALATION ×4 (04:01→19:25)
[2024-06-23] MEDS: Ketorolac 15 MG/ML Vial IV (04:07)
[2024-06-23 04:11] LABS: Allen Test Positive; Base Excess -9 mmol/L (-2 to +2); Bicarbonate 18.6 mmol/L (22-26); Blood Gas Specimen Type ART; Mode Not entered; O2 Delivery Device NRB; PO2 105 mmHG (75-100); SITE L Radial; SO2 97 % (95-99); Total Carbon Dioxide 20 mmol/L; pCO2 43.3 mmHg (35-45); pH 7.24 (7.35-7.45)
[2024-06-23] MEDS: DiphenhydrAMINE 50 MG/ML Syringe 25 MG IV (04:22)
--- NOTE | 2024-06-23 04:26 | NURSING ---
0342 into give pt cough medicine pt restless, increased resp, pox 85 3L, saline locked, ls tight t/o wheezy, resp 36 placed on 10L hi delia unable to get good read on pox placed on nonrebreather, cps called, insulation cupola charger notify dr wilkinson of change and to come and see pt; 0353 breathing tx given by cps; here and new orders given for solumedrol and ativan; 0407 pt still restless, pulling at O2, spiking temp, resp 38, pox 92 on nrb, new order toradol and ativan given; 0416 temp 100.6,;0422 benadryl given per order, less restless, pox 99 on bipap; insulation cupola charger in with primary rn and still present, 8909 ekg
--- NOTE | 2024-06-23 04:40 | NURSING ---
EKG DONE, LAB called for stat labs
[2024-06-23] MEDS: Cefepime HCl 2 GM in 0.9% Normal Saline (100mL MB+) 100 ML IV (04:41)
--- NOTE | 2024-06-23 04:58 | NURSING ---
report called to [facility]
[2024-06-23 05:04] LABS: Absolute Lymphocyte Count 0.26 X10^3/uL (0.83-4.51); Absolute Neutrophil Count 12.4 X10^3/uL (2.0-7.7); Basophil# 0.04 X10^3/uL; Basophil% 0.3 % (0-1); Eosinophil# 0.02 X10^3/uL; Eosinophils% 0.2 % (0-5); Hematocrit 36.5 % (40-54); Hemoglobin 12.6 g/dL (13.0-16.5); Lymphocyte # 0.26 X10^3/ul (0.83-4.51); Mean Corp Hgb Conc 34.5 g/dL (32-36); Mean Corpuscular Hgb 32.2 pg (27.0-32.0); Mean Corpuscular Volume 93.4 fL (80-94); Mean Platelet Vol. 10.3 fl (6.2-12.0); Monocyte# 0.36 X10^3/uL; Monocyte% 2.7 % (0-10); NRBC Flagged by Analyzer 0 % (0-5); Neutrophil # 12.42 X10^3/uL (2.7-7.7); Neutrophil % 93.6 % (47-70); POSITIVE DIFFERENTIAL YES; Platelet Count 219 K/mm3 (150-450); RBC Distribution Width CV 14.4 % (11.6-14.6); RBC Distribution Width SD 49.1 fl (35.1-43.9); Red Blood Count 3.91 M/mm3 (4.6-6.2); White Blood Count 13.3 K/mm3 (4.4-11.0)
--- NOTE | 2024-06-23 05:10 | NURSING ---
transfer to icu 3
[2024-06-23 05:22] LABS: Anion Gap 13 (5-15); BUN 26 mg/dL (7-18); BUN/Creat Ratio 22.4 RATIO (10-20); Calcium,Total 7.7 mg/dL (8.5-10.1); Chloride 102 mmol/L (98-107); Creatinine, Serum 1.16 mg/dL (0.70-1.30); EST Glomerular Filtration Rate 65 mL/min (>60); Est Glom Filt Rate - Afr Amer 79 mL/min (>60); Estimated Creatinine Clearance 65.19 ml/min; Glucose 190 mg/dL (74-106); Potassium 3.4 mmol/L (3.5-5.1); Sodium Level 133 mmol/L (136-145)
[2024-06-23 05:22] LABS: Bedside Glucose 185 mg/dL (74-106)
--- NOTE | 2024-06-23 05:29 | NURSING ---
This RN notified of patient having difficulty breathing and excessive coughing. This RN notified Dr. Ybarra at 03:41 of patient's condition being extremely restless, wheezing, and having difficulty breathing. Patient was fighting oxygen tubing and RNs were having difficulty getting a reading with patient's restlessness. Dr. Ybarra arrived at floor and gave orders of ABGs, stat Chest Xray, and Ativan to calm patient to allow oxygen tubing to stay on his face. After medications and application of a nonrebreather, patient was still having difficulty breathing. Decision was made to apply Bipap and transfer patient to ICU 103. Report was called by Cherie to Jazmine and patient was transferred to ICU 103 at 05:15. This RN attempted to call next of KIn
--- NOTE | 2024-06-23 05:37 | NURSING ---
This RN was notified of patient having difficulty breathing and unable to stop coughing. Dr. Ybarra was notified at 03:41 of patient's condition consisting of respiratory distress, wheezing, difficulty breathing. Dr. Ybarra ordered ABGs and stat chest Xray as well as Ativan to help with patient's restless and pulling on his oxygen tubing. Patient was placed on nonrebreather and still unable to get a good reading of oxygen sats. patient still restless and having difficulty breathing was placed on Bipap and given more Ativan as well as Benadryl. Decision was made to transfer patient to ICU 103. Transferred at 05:15 to room 103. This RN attempted twice to call significant other Karma at 05:25 but unable to leave voicemail due to voicemail box being full.
[2024-06-23 05:45] LABS: Lactic Acid 1.5 mmol/L (0.4-1.9); Troponin-I HS 204 pg/mL (3.0-78.0)
[2024-06-23 05:55] LABS: Allen Test Positive; Base Excess -8 mmol/L (-2 to +2); Blood Gas Specimen Type ART; Mode Not entered; O2 Delivery Device BiPAP; PEEP 6; PO2 94 mmHG (75-100); RR 12; SITE L Radial; SO2 98 % (95-99); Total Carbon Dioxide 18 mmol/L; pCO2 26.9 mmHg (35-45); pH 7.41 (7.35-7.45)
[2024-06-23] MEDS: Lactated Ringers 1,000 ML 70 ML IV (06:08)
--- NOTE | 2024-06-23 06:24 | PN.HOSP_ITS ---
Hospitalist Note I was called to urgently come and evaluate patient while he was on the third floor after he separately developed severe wheezing and tachypnea with patient breathing ~45 breaths/min. He was notably extremely anxious and required treatment with IV Solu-Medrol and IV Ativan. He was also noted to have mottling and reddish discoloration of his skin particularly over his abdomen that was treated with IV Benadryl. His ABG revealed a pH of 7.24 with a pCO2 of 41 and a P O2 of 105 with a bicarb of 18.6 saturating 97% on 100% nonrebreather mask. He was then started on BiPAP with subsequent improvement: with pH 7.41 and pCO2 of 26.9 with pO2 94 and bicarbonate 17 at 98% saturation on BiPAP with respiratory rate of 12 and 50% FiO2 with 6 of PEEP. He was noted to have a chest x-ray that was unremarkable for acute pathologic changes other than bronchial wall thickening suspicious for asthma or atypical/viral infection with respiratory panel pending at this time. His EKG showed sinus tachycardia at ~146 bpm without acute ischemic or other significant pathologic changes. According to the nurse he had a similar but less severe episode earlier the previous day of admission that was thought to be potentially secondary to Zosyn which was then changed to Maxipime. He was then transferred to the ICU for ongoing care. [facility] Imaging Services [address] [place] [id number] Chest 1 View (Portable) MR#: [id number] Acct: [id number] Name: NAUN GARCÍA Rep #: [id number] : 1950 M 73 From: Piero Vasquez MD PCP: MD Hospital Status: ADM IN Study: Chest 1 View (Portable) Date of Exam: 06/23/24 Exam# [id number] Ordering Dr: Austin Abbasi DO INDICATION: Respiratory distress EXAMINATION/TECHNIQUE: X-RAY - XR Chest 1 View COMPARISON: Prior study dated: 06/20/2024 FINDINGS: LINES/DEVICES: None. LUNGS: The lungs are well expanded. Bronchial wall thickening present. No consolidation or effusion. No pneumothorax. MEDIASTINUM AND CARDIOVASCULAR STRUCTURES: Cardiac silhouette not enlarged. Central airways and mediastinal contour are unremarkable. BONES AND SOFT TISSUES: No acute abnormality. RAD/Chest 1 View (Portable) IMPRESSION: No consolidation. Bronchial wall thickening can be seen with a small airways process such as asthma or atypical/viral infection. Alternatively this could be associated with mild edema. Electronically Signed: Piero Vasquez MD at 4:34 EDT , CC: Dr. Austin Abbasi DO; [facility] ~ Button Maker And Installer: Signed
--- NOTE | 2024-06-23 07:05 | PN.HOSP_ITS ---
Reason for Visit Reason for Visit: Diagnoses Elevated white blood cell count, unspecified (06/20/24) Type 2 diabetes mellitus with hyperglycemia (06/20/24) Other disorders of bilirubin metabolism (06/20/24) Hypo-osmolality and hyponatremia (06/20/24) Urinary tract infection, site not specified (06/20/24) Right upper quadrant pain (06/20/24) Elevation of levels of liver transaminase levels (06/20/24) Bacteremia (06/20/24) Other specified abnormal findings of blood chemistry (06/20/24) Subjective Subjective Dyspneic and anxious overnight with noted abdominal mottling last night. Objective Data Objective Data Vital Signs: Vital Signs Temp Pulse Resp BP Pulse Ox O2 Del Method O2 Flow Rate 38.7 C H 102 H 30 H 109/77 95 Bi-pap 10 06/23/24 05:15 06/23/24 06:00 06/23/24 06:00 06/23/24 06:00 06/23/24 06:00 06/23/24 06:00 06/23/24 03:36 FiO2 50 06/23/24 06:00 Oxygen Flow Rate (L/min) [ 2 AMBULATING with Oxygen #1] Oxygen Flow Rate (L/min) [At 2 REST with Oxygen] Oxygen Flow Rate (L/min) 10 Oxygen Delivery Method Bi-pap Weight: 93.3 kg Body Mass Index (BMI) 28.8 Intake & Output: Intake and Output for Last 24 Hours 06/21/24 06/22/24 06/23/24 23:59 23:59 23:59 Intake Total 7164.17 / 7164.17 4073.33 / 4073.33 1005 / 1005 Output Total 4900 / 4900 6600 / 6600 1150 / 1150 Balance 2264.17 / 2264.17 -2526.67 / -2526.67 -145 / -145 Lab / Micro Data 06/23/24 04:53 06/23/24 04:53 Labs: Laboratory Results - last 24 hr 06/22/24 11:00: POC Glucose 277 H 06/22/24 15:54: POC Glucose 369 H 06/22/24 20:26: POC Glucose 287 H 06/23/24 04:24: POC Glucose 185 H 06/23/24 04:53: WBC 13.3 H, RBC 3.91 L, Hgb 12.6 L, Hct 36.5 L, MCV 93.4, MCH 32.2 H, MCHC 34.5, RDW Std Deviation 49.1 H, RDW Coeff of Tarik 14.4, Plt Count 219, MPV 10.3, Immature Gran % (Auto) 1.200 H, Neut % (Auto) 93.6 H, Lymph % (Auto) 2.0 L, [place] % (Auto) 2.7, Eos % (Auto) 0.2, Baso % (Auto) 0.3, Absolute Neuts (auto) 12.4 H, Absolute Lymphs (auto) 0.26 L, Nucleated RBC % 0, Sodium 133 L, Potassium 3.4 L, Chloride 102, Carbon Dioxide 18.0 L, Anion Gap 13, BUN 26 H, Creatinine 1.16, Estim Creat Clear Calc 65.19, Est GFR (MDRD) Af Amer 79, Est GFR (MDRD) Non-Af 65, BUN/Creatinine Ratio 22.4 H, Glucose 190 H, Lactic Acid 1.5, Calcium 7.7 L, Troponin I High Sens 204 H* Micro: Microbiology 06/23/24 04:43 Mucosa - Nasopharyngeal SARS-CoV-2, Influenza & RSV (PCR) - Final 06/20/24 14:40 Urine, Midstream Urine Culture - Preliminary Presumptive E. 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 Bronchial wall thickening can be seen with a small airways process such as asthma or atypical/viral infection. Alternatively this could be associated with mild edema. Electronically Signed: Piero Vasquez MD at 4:34 EDT , Rhythm Strip Rhythm Strip: Sinus Rhythm Rate: 85 Ectopy: PVC(s) Physical Exam Const alert and no apparent distress HEENT head/scalp atraumatic and moist oral mucous membranes Resp normal respiratory effort and no retractions Resp Narrative: bibasilar crackles. Cardio regular rate, regular rhythm, S1 normal heart sound and S2 normal heart sound GI normal to inspection, nondistended, normoactive bowel sounds, soft to palpation, non-tender and non-distended Extremity normal to inspection, full ROM and no clubbing, cyanosis or edema Neuro oriented x3, CN's II-XII intact bilaterally, moves all extremities and no focal motor deficits Sensorium / Orientation: awake and alert Assessment & Plan Assessment/Plan (1) Complicated UTI (urinary tract infection): PLAN: Plan Sepsis * POA with qSOFA of 2 and SIRS of 4 * 2/2 UTI and bacteremia * supportive mgmt. Acute Hypoxic respiratory failure * 2/2 to AECOPD * developed earlier this AM (06/23) requiring BiPAP. Since improved. His pulse ox went down to 85% while on NC, tachypneic despite NRB. Placed on BiPAP. Now back on NC * increased interstitial markings on CXR. Weight is up about 4.5 kg during admission. * maybe COPD exacerbation, but cannot rule out CHF, so will give a dose of IV furosemide and check echo * CTA showed bilateral lower ATX and severe emphysema in upper lobes. NSTEMI * unclear type at present, though I favor type II event. * troponins trending upwards. * heparin gtt for now * cardiology consulted. CAUTI * catheter changed * Cx showing ESBL E. coli * abx now on meropenem. * ID following Bacteremia * ESBL E. coli. 2/2 to UTI. * abx as above. * monitor Hyponatremia * improving. suspect due to chlorthalidone, which has been held. * monitor Hypokalemia * Magnesium WNL * improving. continue potassium replacement. DM2, uncontrolled * a1c 10 * on glipizide at home * now on glargine 10 and SSI. Acute COPD exacerbation: * wean oxygen as tolerted * BDs, methylpred Chronic conditions: * Essential HTN: controlled. chlorthalidone held given hyponatremia * HLD: statin * GERD: PPI * BPH with obstruction: tamsulosin. Chronic aguilera. VTE prophylaxis: enoxparin. DW patient's at bedside. Charges/Coding Visit Charges Inpatient E&M: 25776 Subs Hosp L3
[2024-06-23] MEDS: Insulin Lispro 100 UNIT/ML INSULN.PEN SC ×3 (07:41→15:58)
[2024-06-23] MEDS: Potassium Chloride Oral Tablet 20 MEQ 40 MEQ PO ×2 (07:44→16:01)
[2024-06-23] MEDS: Enoxaparin 40 MG/0.4 ML Syringe SC (07:44)
[2024-06-23] MEDS: Aspirin 81 MG TAB.CHEW PO (07:44)
[2024-06-23] MEDS: Pantoprazole Sodium 20 MG Tablet PO (07:45)
[2024-06-23] MEDS: amLODIPine 10 MG Tablet PO (07:45)
[2024-06-23] MEDS: Atorvastatin Calcium 40 MG Tablet PO (07:45)
[2024-06-23] MEDS: Multivitamins,Therapeutic Tablet 1 TABLET PO (07:45)
[2024-06-23] MEDS: Fluticasone 0.05% 1 SPRAY NASAL.SRY NASAL (07:46)
[2024-06-23] MEDS: Nystatin Powder 15gm Bottle 1 APPLIC TOPICAL ×2 (07:46→21:31)
[2024-06-23 08:03] LABS: Troponin-I HS 742 pg/mL (3.0-78.0)
[2024-06-23 08:09] LABS: Bedside Glucose 209 mg/dL (74-106)
[2024-06-23] MEDS: Furosemide 40 MG/4 ML Vial IV (08:14)
--- NOTE | 2024-06-23 10:03 | CT_ITS ---
STUDY: CTA CHEST REASON FOR EXAM: Male, 73 years old. Respiratory failure. RADIATION DOSAGE (If Supplied By Facility): CTDIvol = ( 17.73 ) mGy, DLP = ( 462.02 ) mGycm TECHNIQUE: The examination was performed with the intravenous administration of IV 100mL Isovue-370. Post-processing of the angiographic images was performed, with multiplanar reformation and 3D reconstruction. Individualized dose optimization techniques were used for this CT. COMPARISON: Comparison is made with prior chest radiograph done earlier in the day as well as prior CT scan of the chest dated January 13, 2022. FINDINGS: Normal enhancement of the main pulmonary artery and right and left pulmonary arteries. Normal enhancement of the bilateral peripheral pulmonary arteries. There is no demonstrated pulmonary embolism. There is atherosclerotic calcification of the aortic arch with tortuosity. There is no demonstrated aortic dissection. There are calcifications of the coronary arteries. Normal mediastinum. Normal hilar regions. Normal visualized trachea and bronchi. Hyperinflation. Emphysematous changes more prominent in the upper lobes. Bibasilar atelectasis slightly more prominent at the right lung base. Subpleural blebs. Normal pleura. Normal chest wall structures. There are degenerative changes of thoracic spine. Normal visualized upper abdomen. CT/CTA Chest W/WO Contrast IMPRESSION: No evidence of pulmonary embolism. Bibasilar atelectasis more prominent right lung base. Diffuse emphysematous changes worse in the upper lobes. Electronically Signed: Anibal Jimenez MD at 11:01 EDT ,
--- NOTE | 2024-06-23 10:11 | CON.PCM.CA_ITS ---
Assessment & Plan Assessment/Plan (1) Elevated troponin: PLAN: Likely type II elevation in setting of complex UTI with bacteremia and SIRS. Check echocardiogram. Will recommend further evaluation with outpatient pharmacological stress test after this hospitalization. (2) Hypoxia: PLAN: Given diuretics. Check echocardiogram. Also recommend ruling out PE. (3) Bacteremia due to Gram-negative bacteria: PLAN: As per infectious disease. (4) Complicated UTI (urinary tract infection): PLAN: Infectious disease on consult. (5) Type 2 diabetes mellitus: PLAN: As per internal medicine. HPI Consult Data Date of Consult: 06/23/24 HPI Narrative Reason for Consultation: Elevated troponin HPI Narrative: 73-year-old gentleman with past medical history significant for diabetes mellitus, dyslipidemia and hypertension. He has been admitted to the hospital with complicated UTI with bacteremia and SIRS. He was noted to be progressively short of breath necessitating BiPAP. As part of his workup, troponins were checked. These are noted to be elevated. Patient denies any chest pains. He did complain of some shortness of breath yesterday which has since been relieved. Denies any history of angina. No history of CAD or congestive heart failure. PFSH Medical History Leukocytosis Prostate disease Dietary restriction Lipoma of back Sebaceous cyst Aneurysm Anxiety Excessive bleeding Chronic cough History of edema History of stress test History of echocardiogram Degenerative joint disease of hand Hyperlipidemia Benign essential hypertension Wears hearing aid Wears glasses Wears dentures Depression Alcohol use Diabetes History of steroid therapy Arthritis Hepatitis Easy bruising Gastric reflux Shortness of breath on exertion On home oxygen therapy Leg cramps Former smoker Hypertension COPD (chronic obstructive pulmonary disease) Smoking greater than 40 pack years Home Medications ?Medication ?Instructions ?Recorded ?Last Taken ?Type amlodipine 10 mg tablet 10 mg PO DAILY HTN 12/23/21 06/19/24 History melatonin 3 mg tablet 3 mg PO QHS sleep aid 12/23/21 06/19/24 History multivitamin 1 tab PO DAILY multivitamin 12/23/21 06/19/24 History tamsulosin 0.4 mg capsule 0.4 mg PO QHS urinary retention 12/23/21 06/19/24 History guaifenesin 200 mg tablet 200 mg PO Q4H PRN Cough 02/21/22 Unknown History albuterol sulfate 90 mcg/actuation 1 inh inhalation BID COPD 03/24/22 07/01/23 History aerosol inhaler (Ventolin HFA) fluticasone propionate 50 1 spray intranasal DAILY nose spray 04/29/22 06/19/24 History mcg/actuation nasal spray,suspension pantoprazole 20 mg tablet,delayed 20 mg PO DAILY GERD 04/29/22 Unknown History release atorvastatin 40 mg PO DAILY CHOLESTEROL 10/13/22 Unknown History chlorthalidone 25 mg tablet 25 mg PO DAILY HTN 04/29/23 06/19/24 History glipizide 10 mg tablet 10 mg PO BID Diabetes 04/29/23 06/19/24 History potassium chloride 20 mEq 20 meq PO BID potassium #6 tabs 06/16/23 Unknown Rx tablet,extended release(part/cryst) aspirin 81 mg capsule 81 mg PO DAILY HEART 05/05/24 Unknown History primidone 50 mg tablet (Mysoline) 50 mg PO QHS primidone 05/05/24 06/19/24 History Allergy/AdvReac Type Severity Reaction Status Date / Time adhesive tape AdvReac Intermediate Rash Verified 06/20/24 10:46 gabapentin AdvReac Unknown PT UNSURE Verified 06/20/24 10:46 OF REACTION rosuvastatin AdvReac Unknown PT UNSURE Verified 06/20/24 10:46 OF REACTION hydroxyzine AdvReac NEEDS Verified 06/20/24 10:46 FOLLOW-UP Family History Father Cancer Heart disease Mother Heart disease Myocardial infarction Surgical History History of excision of mass History of cataract surgery History of esophagogastroduodenoscopy (EGD) Hx of colonoscopy History of hand surgery Hx of appendectomy H/O wrist surgery Social History household members: spouse Smoking Status: Former smoker quit date: 09/26/21 pack-years: 90 Tobacco: How many years used: 60 alcohol intake: former substance use type: does not use Physical Exam Narrative Comfortable. Sitting up in the chair. Heart sounds 1 and 2 are noted. Tachycardic. Chest clear to auscultation. Alert oriented x 3. No ankle edema. Risk Stratification Risk Stratification Applicable: No Objective Data Vital Signs: Vital Signs Temp Pulse Resp BP Pulse Ox O2 Del Method O2 Flow Rate 99.7 F H 98 30 H 111/80 93 Nasal Cannula 2 06/23/24 08:00 06/23/24 09:00 06/23/24 09:00 06/23/24 09:00 06/23/24 09:00 06/23/24 09:00 06/23/24 09:00 FiO2 35 06/23/24 07:09 Oxygen Flow Rate (L/min) [ 2 AMBULATING with Oxygen #1] Oxygen Flow Rate (L/min) [At 2 REST with Oxygen] Oxygen Flow Rate (L/min) 2 Oxygen Delivery Method Nasal Cannula Weight: 205 lb 11.06 oz Body Mass Index (BMI) 28.8 Intake & Output: Intake and Output for Last 24 Hours 06/21/24 06/22/24 06/23/24 23:59 23:59 23:59 Intake Total 7164.17 / 7164.17 4073.33 / 4073.33 1005 / 1005 Output Total 4900 / 4900 6600 / 6600 1150 / 1150 Balance 2264.17 / 2264.17 -2526.67 / -2526.67 -145 / -145 Lab / Micro Data 06/23/24 04:53 06/23/24 04:53 Labs: Laboratory Results - last 24 hr 06/22/24 11:00: POC Glucose 277 H 06/22/24 15:54: POC Glucose 369 H 06/22/24 20:26: POC Glucose 287 H 06/23/24 04:24: POC Glucose 185 H 06/23/24 04:53: WBC 13.3 H, RBC 3.91 L, Hgb 12.6 L, Hct 36.5 L, MCV 93.4, MCH 32.2 H, MCHC 34.5, RDW Std Deviation 49.1 H, RDW Coeff of Tarik 14.4, Plt Count 219, MPV 10.3, Immature Gran % (Auto) 1.200 H, Neut % (Auto) 93.6 H, Lymph % (Auto) 2.0 L, [place] % (Auto) 2.7, Eos % (Auto) 0.2, Baso % (Auto) 0.3, Absolute Neuts (auto) 12.4 H, Absolute Lymphs (auto) 0.26 L, Nucleated RBC % 0, Sodium 133 L, Potassium 3.4 L, Chloride 102, Carbon Dioxide 18.0 L, Anion Gap 13, BUN 26 H, Creatinine 1.16, Estim Creat Clear Calc 65.19, Est GFR (MDRD) Af Amer 79, Est GFR (MDRD) Non-Af 65, BUN/Creatinine Ratio 22.4 H, Glucose 190 H, Lactic Acid 1.5, Calcium 7.7 L, Troponin I High Sens 204 H* 06/23/24 07:30: Troponin I High Sens 742 H* 06/23/24 07:40: POC Glucose 209 H Micro: Microbiology 06/20/24 14:40 Urine, Midstream Urine Culture - Preliminary Presumptive E. coli 06/23/24 04:43 Mucosa - Nasopharyngeal Respiratory Panel (PCR) - Final 06/23/24 04:43 Mucosa - Nasopharyngeal SARS-CoV-2, Influenza & RSV (PCR) - Final 06/20/24 15:25 Blood Culture (Wb) - Anticubital Right Blood Culture - Preliminary ESBL Escherichia coli ABG Data ABG results: ABG 06/23/24 06/23/24 04:07 05:51 Specimen Type ART ART Sample Site L Radial L Radial pH 7.24 L 7.41 Bicarbonate Actual 18.6 L 17.0 L Total CO2 20 18 Base Excess -9 L -8 L O2 Saturation 97 98 O2 % 100.0 50.0 ABG pCO2 43.3 26.9 L ABG pO2 105 H 94 Dat Test Positive Positive Respiration Rate 12 O2 Delivery Device NRB BiPAP Vent Mode Not entered Not entered POC PEEP 6 Rhythm Strip Rhythm Strip: Sinus Rhythm Rate: 85 Ectopy: PVC(s) Cardiology Labs/Tests 06/23/24 04:07: pH 7.24 L, Bicarbonate Actual 18.6 L, Base Excess -9 L, O2 Saturation 97, ABG pCO2 43.3, ABG pO2 105 H, Dat Test Positive 06/23/24 04:53: WBC 13.3 H, RBC 3.91 L, Hgb 12.6 L, Hct 36.5 L, MCV 93.4, MCH 32.2 H, MCHC 34.5, Plt Count 219, MPV 10.3, Immature Gran % (Auto) 1.200 H, Neut % (Auto) 93.6 H, Lymph % (Auto) 2.0 L, [place] % (Auto) 2.7, Eos % (Auto) 0.2, Baso % (Auto) 0.3, Absolute Neuts (auto) 12.4 H, Nucleated RBC % 0, Sodium 133 L, P otassium 3.4 L, Chloride 102, Carbon Dioxide 18.0 L, Anion Gap 13, BUN 26 H, Creatinine 1.16, Est GFR (MDRD) Af Amer 79, Est GFR (MDRD) Non-Af 65, B UN/Creatinine Ratio 22.4 H, Glucose 190 H, Lactic Acid 1.5, Calcium 7.7 L 06/23/24 05:51: pH 7.41, Bicarbonate Actual 17.0 L, Base Excess -8 L, O2 Saturation 98, ABG pCO2 26.9 L, ABG pO2 94, Dat Test Positive Rhythm: EKG: Sinus tachycardia with nonspecific ST changes ECHO: Stress Test: Cardiac Cath: PCI: CT Surgery: Holter monitor: EPS: PPM: CXR: Chest CT Scan: Radiography Diagnostic Testing: Radiology Impression Chest X-Ray 06/23/24 03:45 IMPRESSION: No consolidation. Bronchial wall thickening can be seen with a small airways process such as asthma or atypical/viral infection. Alternatively this could be associated with mild edema. Electronically Signed: Piero Vasquez MD at 4:34 EDT ,
[2024-06-23] MEDS: Meropenem 1 GM in 0.9% Normal Saline (100mL MB+) 100 ML IV ×2 (10:12→21:25)
--- NOTE | 2024-06-23 10:14 | PCM.PN.ID ---
Physical Exam Narrative Moved to icu after sudden onset wheezing and dyspnea this AM. Feeling ok, no abd pain. Const alert and no apparent distress Resp normal air movement and clear to auscultation bilaterally Cardio regular rate and regular rhythm GI soft to palpation, non-tender and non-distended Skin no rashes or lesions noted ID ID: Route of nutrition/ use of supplements: [] Nutritional Intake: [] IV Site: [] Aguilera Catheter: [] Assessment & Plan Assessment/Plan (1) Complicated UTI (urinary tract infection): PLAN: ESBL ecoli bacteremia. 3rd infection in 2 months, including bacteremia at end of April and again now. 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 Some bladder thickening, but no stones or hydro seen on CT. Feeling better, fever again last night, wbc better. Ucx with ecoli. will change cefepime to jamie for esbl coverage. Will follow (2) Bacteremia due to Gram-negative bacteria:
[2024-06-23 10:43] LABS: International Normalized Ratio 1.2; Prothrombin Time (Protime)PT. 15.4 SECONDS (11.7-14.9)
[2024-06-23 10:44] LABS: Partial Thromboplast Time 26.9 Seconds (24.1-36.2)
--- NOTE | 2024-06-23 10:46 | CASEMGMT ---
TC to [facility] and [facility] and updated her of the pt status and that he was transferred to the ICU. Alina states that she will cancel the current oxygen delivery and to notify the [facility] of the projected DC date. Moving forward, Alina says that she is off of work and that we will need to call [phone]. [phone] for future needs. CM to follow.
[2024-06-23] MEDS: Heparin Injection (Vial) 5,000 UNIT/ML VIAL 4000 UNIT IV (10:48)
[2024-06-23] MEDS: HEPARIN/D5w 25,000 UNITS 25,000 UNITS/250 ML IV.SOLN. 10 UNITS CONT INF (10:49)
--- NOTE | 2024-06-23 13:56 | ECHOCS_ITS ---
Reason For Study: NSTEMI Procedure This was a 2D Doppler, Color Flow transthoracic echocardiogram. The study was technically difficult. Contrast injection was performed. Exam performed portable in ICU/CCU. Left Ventricle Normal size and thickness. Severe inferior, inferior septal and anterior septal hypokinesis. Estimated LVEF 40%. Normal diastology for age. Right Ventricle Normal right ventricle. Atria The left and right atria are normal. Mitral Valve Mild (1+) mitral valve insufficiency. Tricuspid Valve Mild tricuspid valve insufficiency. Right ventricular systolic pressure estimated to be 46 mmHg. Aortic Valve Aortic sclerosis, no stenosis. Pulmonic Valve The pulmonic valve is not well visualized. Great Vessels Mildly dilated aortic root. Pericardium/Pleural No pericardial effusion. Medication Diluted definity 2ml given slow IV push to enhance endocardial definition. MMode/2D Measurements & Calculations LVIDd: 5.4 cm IVSd: 0.95 cm Ao root diam: 3.8 cm LVIDs: 4.8 cm LVPWd: 1.0 cm LA dimension: 4.4 cm RVDd: 4.0 cm FS: 11.9 % LAV(MOD-bp): 58.2 ml LVAd ap4: 40.5 cm2 LVAd ap2: 40.5 cm2 LAV(MOD-bp) Indexed: 27.3 ml/m2 LVLd ap4: 8.7 cm LVLd ap2: 8.8 cm LAV(MOD-sp2): 45.0 ml EDV(MOD-sp4): 155.5 ml EDV(MOD-sp2): 152.8 ml LAV(MOD-sp4): 58.7 ml EDV(sp4-el): 160.7 ml EDV(sp2-el): 157.5 ml LVAs ap4: 29.4 cm2 LVAs ap2: 28.2 cm2 LVLs ap4: 7.4 cm LVLs ap2: 7.2 cm ESV(MOD-sp4): 97.3 ml ESV(MOD-sp2): 93.3 ml ESV(sp4-el): 99.6 ml ESV(sp2-el): 93.7 ml EF(MOD-sp4): 37.4 % EF(MOD-sp2): 38.9 % EF(sp4-el): 38.0 % SV(MOD-sp4): 58.1 ml SV(MOD-sp2): 59.5 ml SV(sp4-el): 61.1 ml LA A4 area: 21.3 cm2 RA A4 area: 18.7 cm2 TAPSE: 2.2 cm Time Measurements MV dec time: 0.17 sec Doppler Measurements & Calculations MV E max emiliano: 70.0 cm/sec Lat Peak E' Emiliano: 11.1 cm/sec Med Peak E' Emiliano: 9.2 cm/sec MV A max emiliano: 68.9 cm/sec E/E' lat: 6.3 E/E' med: 7.6 MV E/A: 1.0 MV V2 max: 87.7 cm/sec MV P1/2t max emiliano: 83.2 cm/sec Ao V2 max: 96.4 cm/sec MV max P.1 mmHg MV P1/2t: 67.2 msec Ao max P.7 mmHg MV V2 mean: 47.0 cm/sec Ao V2 mean: 68.2 cm/sec MV mean P.1 mmHg MV dec slope: 362.6 cm/sec2 Ao mean P.1 mmHg MV V2 VTI: 28.0 cm MVA(P1/2t): 3.3 cm2 Ao V2 VTI: 21.1 cm AV (velocity ratio): 0.80 LV V1 max: 75.7 cm/sec MR max emiliano: 475.4 cm/sec PA V2 max: 66.9 cm/sec LV V1 max P.3 mmHg MR max P.4 mmHg PA max PG (full): 0.11 mmHg LV V1 mean P.3 mmHg LV V1 mean: 52.2 cm/sec LV V1 VTI: 17.0 cm TR max emiliano: 277.7 cm/sec TR max P.9 mmHg ECHO/Echo Complete W/ Contrast Interpretation Summary Severe inferior, inferior septal and anterior septal hypokinesis. Estimated LVE F 40%. Mild (1+) mitral valve insufficiency. Mild tricuspid valve insufficiency. Right ventricular systolic pressure estimated to be 46 mmHg. Aortic sclerosis, no stenosis. The study was technically difficult. Ordering Physician: Karlos Dixon Performed By: Justo Wei RCS
[2024-06-23 16:11] LABS: Bedside Glucose 379 mg/dL (74-106)
[2024-06-23 16:21] LABS: Bedside Glucose 433 mg/dL (74-106)
[2024-06-23] MEDS: Clopidogrel Bisulfate 75 MG Tablet PO (17:15)
[2024-06-23 17:42] LABS: Partial Thromboplast Time 49.9 Seconds (24.1-36.2)
[2024-06-23] MEDS: Insulin Glargine-YFGN 100 UNIT/ML Pen 10 UNIT SC (21:24)
[2024-06-23] MEDS: MELATONIN 3 MG TABLET PO (21:25)
[2024-06-23] MEDS: Primidone 50 MG Tablet PO (21:25)
[2024-06-23] MEDS: Carvedilol 3.125 MG TABLET PO (22:30)
[2024-06-23 23:07] LABS: Partial Thromboplast Time 53.8 Seconds (24.1-36.2)
[2024-06-23 23:41] LABS: Bedside Glucose 367 mg/dL (74-106)
[2024-06-24] VITALS (15 sets, daily range): BP systolic 101–126; BP diastolic 47–82; PULSE 62–81; RESP 14–26; TEMP 36.3–36.9; O2SAT 93–98; BMI 29.0
[2024-06-24] MEDS: Tamsulosin HCl 0.4 MG Capsule PO (02:08)
[2024-06-24] MEDS: Meropenem 1 GM in 0.9% Normal Saline (100mL MB+) 100 ML IV ×3 (05:36→22:21)
[2024-06-24 05:42] LABS: Absolute Lymphocyte Count 0.71 X10^3/uL (0.83-4.51); Absolute Neutrophil Count 12.6 X10^3/uL (2.0-7.7); Basophil# 0.04 X10^3/uL; Basophil% 0.3 % (0-1); Hematocrit 29.7 % (40-54); Hemoglobin 10.2 g/dL (13.0-16.5); Lymphocyte # 0.71 X10^3/ul (0.83-4.51); Mean Corp Hgb Conc 34.3 g/dL (32-36); Mean Corpuscular Hgb 32.7 pg (27.0-32.0); Mean Corpuscular Volume 95.2 fL (80-94); Mean Platelet Vol. 10.9 fl (6.2-12.0); Monocyte# 0.54 X10^3/uL; Monocyte% 3.8 % (0-10); NRBC Flagged by Analyzer 0 % (0-5); Neutrophil # 12.58 X10^3/uL (2.7-7.7); Neutrophil % 88.6 % (47-70); Platelet Count 210 K/mm3 (150-450); RBC Distribution Width CV 14.9 % (11.6-14.6); RBC Distribution Width SD 51.9 fl (35.1-43.9); Red Blood Count 3.12 M/mm3 (4.6-6.2); White Blood Count 14.2 K/mm3 (4.4-11.0)
[2024-06-24 06:00] LABS: Anion Gap 7 (5-15); BUN 29 mg/dL (7-18); BUN/Creat Ratio 29.1 RATIO (10-20); Calcium,Total 7.3 mg/dL (8.5-10.1); Chloride 105 mmol/L (98-107); EST Glomerular Filtration Rate 78 mL/min (>60); Est Glom Filt Rate - Afr Amer 94 mL/min (>60); Estimated Creatinine Clearance 75.85 ml/min; Glucose 264 mg/dL (74-106); Potassium 4.4 mmol/L (3.5-5.1); Sodium Level 133 mmol/L (136-145)
[2024-06-24 06:18] LABS: Partial Thromboplast Time 115.9 Seconds (24.1-36.2)
[2024-06-24] MEDS: Ipratropium/Albuterol Sulfate 3 ML AMPUL.NEB INHALATION ×2 (07:12→19:57)
--- NOTE | 2024-06-24 07:21 | PN.HOSP_ITS ---
Reason for Visit Reason for Visit: Diagnoses Elevated white blood cell count, unspecified (06/20/24) Type 2 diabetes mellitus with hyperglycemia (06/20/24) Type 2 diabetes mellitus without complications (06/20/24) Other disorders of bilirubin metabolism (06/20/24) Hypo-osmolality and hyponatremia (06/20/24) Urinary tract infection, site not specified (06/20/24) Hypoxemia (06/20/24) Right upper quadrant pain (06/20/24) Elevation of levels of liver transaminase levels (06/20/24) Bacteremia (06/20/24) Other specified abnormal findings of blood chemistry (06/20/24) Subjective Subjective Breathing well. No other issues. Objective Data Objective Data Vital Signs: Vital Signs Temp Pulse Resp BP Pulse Ox O2 Del Method O2 Flow Rate 36.4 C L 76 14 121/74 H 93 Nasal Cannula 3 06/24/24 00:00 06/24/24 07:12 06/24/24 07:12 06/24/24 06:00 06/24/24 07:12 06/24/24 07:12 06/24/24 07:12 FiO2 35 06/23/24 07:09 Oxygen Flow Rate (L/min) [ 2 AMBULATING with Oxygen #1] Oxygen Flow Rate (L/min) [At 2 REST with Oxygen] Oxygen Flow Rate (L/min) 3 Oxygen Delivery Method Nasal Cannula Weight: 93.9 kg Body Mass Index (BMI) 29.0 Intake & Output: Intake and Output for Last 24 Hours 06/22/24 06/23/24 06/24/24 23:59 23:59 23:59 Intake Total 4073.33 / 4073.33 3529.79 / 3529.79 443 / 443 Output Total 6600 / 6600 5325 / 5325 550 / 550 Balance -2526.67 / -2526.67 -1795.21 / -1795.21 -107 / -107 Lab / Micro Data 06/24/24 05:25 06/24/24 05:25 Labs: Laboratory Results - last 24 hr 06/23/24 07:30: Troponin I High Sens 742 H* 06/23/24 07:40: POC Glucose 209 H 06/23/24 10:10: PT 15.4 H, INR 1.2, APTT 26.9 06/23/24 11:11: POC Glucose 379 H 06/23/24 15:57: POC Glucose 433 H 06/23/24 17:15: APTT 49.9 H 06/23/24 21:18: POC Glucose 367 H 06/23/24 22:45: APTT 53.8 H 06/24/24 05:25: WBC 14.2 H, RBC 3.12 L, Hgb 10.2 L, Hct 29.7 L, MCV 95.2 H, MCH 32.7 H, MCHC 34.3, RDW Std Deviation 51.9 H, RDW Coeff of Tarik 14.9 H, Plt Count 210, MPV 10.9, Immature Gran % (Auto) 2.300 H, Neut % (Auto) 88.6 H, Lymph % (Auto) 5.0 L, [place] % (Auto) 3.8, Eos % (Auto) 0.0, Baso % (Auto) 0.3, Absolute Neuts (auto) 12.6 H, Absolute Lymphs (auto) 0.71 L, Nucleated RBC % 0, APTT 115.9 H*, Sodium 133 L, Potassium 4.4, Chloride 105, Carbon Dioxide 21.0, Anion Gap 7, BUN 29 H, Creatinine 1.00, Estim Creat Clear Calc 75.85, Est GFR (MDRD) Af Amer 94, Est GFR (MDRD) Non-Af 78, BUN/Creatinine Ratio 29.1 H, Glucose 264 H , Calcium 7.3 L Micro: Microbiology 06/20/24 14:40 Urine, Midstream Urine Culture - Final ESBL Escherichia coli 06/23/24 04:43 Mucosa - Nasopharyngeal Respiratory Panel (PCR) - Final 06/23/24 04:43 Mucosa - Nasopharyngeal SARS-CoV-2, Influenza & RSV (PCR) - Final 06/20/24 15:25 Blood Culture (Wb) - Anticubital Right Blood Culture - Preliminary ESBL Escherichia coli Radiography Diagnostic Testing: Radiology Impression Chest CTA 06/23/24 10:03 IMPRESSION: No evidence of pulmonary embolism. Bibasilar atelectasis more prominent right lung base. Diffuse emphysematous changes worse in the upper lobes. Electronically Signed: Anibal Jimenez MD at 11:01 EDT , Echocardiogram 06/23/24 13:56 Interpretation Summary Severe inferior, inferior septal and anterior septal hypokinesis. Estimated LVEF 40%. Mild (1+) mitral valve insufficiency. Mild tricuspid valve insufficiency. Right ventricular systolic pressure estimated to be 46 mmHg. Aortic sclerosis, no stenosis. The study was technically difficult. Ordering Physician: Karlos Dixon Performed By: Justo Wei RCS Rhythm Strip Rhythm Strip: Sinus Rhythm Rate: 85 Ectopy: PVC(s) Physical Exam Const alert and no apparent distress Constitutional Narrative: up in chair. afebrile. HEENT head/scalp atraumatic and moist oral mucous membranes Resp normal respiratory effort, no retractions, no use of accessory muscles and clear to auscultation bilaterally Cardio regular rate, regular rhythm, S1 normal heart sound and S2 normal heart sound GI normal to inspection, nondistended, normoactive bowel sounds, soft to palpation, non-tender and non-distended Extremity normal to inspection Neuro Sensorium / Orientation: awake and alert Assessment & Plan Assessment/Plan (1) Complicated UTI (urinary tract infection): PLAN: Plan Sepsis * POA with qSOFA of 2 and SIRS of 4 * 2/2 UTI and bacteremia * supportive mgmt. Acute Hypoxic respiratory failure * 2/2 to AECOPD and component of CHF. * developed earlier this AM (06/23) requiring BiPAP. Since improved. His pulse ox went down to 85% while on NC, tachypneic despite NRB. Placed on BiPAP. Now back on NC * increased interstitial markings on CXR. Weight is up about 4.5 kg during admission. * maybe COPD exacerbation, but cannot rule out CHF, so will give a dose of IV furosemide and check echo * CTA showed bilateral lower ATX and severe emphysema in upper lobes. NSTEMI * unclear type at present, though I favor type II event. * troponins trending upwards. * heparin gtt for now * cardiology following. [facility] [place] catheterization at some inpt v outpt CAUTI * catheter changed * Cx showing ESBL E. coli * abx now on meropenem. * ID following Bacteremia * ESBL E. coli. /2 to UTI. * abx as above. * monitor Hyponatremia * improving. suspect due to chlorthalidone, which has been held. * monitor Hypokalemia * Magnesium WNL * improving. continue potassium replacement. DM2, uncontrolled * a1c 10 * on glipizide at home * on SSI. will increase glargine from 10 QHS to 15 BID. Acute COPD exacerbation: * wean oxygen as tolerted * BDs, methylpred Chronic conditions: * Essential HTN: controlled. chlorthalidone held given hyponatremia * HLD: statin * GERD: PPI * BPH with obstruction: tamsulosin. Chronic aguilera. VTE prophylaxis: enoxparin. Transfer to PCU today since he has remained stable. Charges/Coding Visit Charges Inpatient E&M: 48561 Subs Hosp L2
[2024-06-24] MEDS: Pantoprazole Sodium 20 MG Tablet PO (07:36)
[2024-06-24] MEDS: amLODIPine 5 MG Tablet PO (07:36)
[2024-06-24] MEDS: Aspirin 81 MG TAB.CHEW PO (07:36)
[2024-06-24] MEDS: Potassium Chloride Oral Tablet 20 MEQ 40 MEQ PO ×2 (07:36→17:00)
[2024-06-24] MEDS: Multivitamins,Therapeutic Tablet 1 TABLET PO (07:36)
[2024-06-24] MEDS: Furosemide 20 MG Tablet PO (07:36)
[2024-06-24] MEDS: Clopidogrel Bisulfate 75 MG Tablet PO (07:37)
[2024-06-24] MEDS: Carvedilol 3.125 MG TABLET PO ×2 (07:37→22:18)
[2024-06-24] MEDS: Lisinopril 2.5 MG Tablet PO (07:37)
[2024-06-24] MEDS: Nystatin Powder 15gm Bottle 1 APPLIC TOPICAL ×2 (07:37→22:28)
[2024-06-24] MEDS: Atorvastatin Calcium 40 MG Tablet PO (07:37)
[2024-06-24] MEDS: Fluticasone 0.05% 1 SPRAY NASAL.SRY NASAL (07:37)
[2024-06-24] MEDS: Insulin Lispro 100 UNIT/ML INSULN.PEN SC ×2 (07:41→17:02)
[2024-06-24 08:03] LABS: Bedside Glucose 245 mg/dL (74-106)
--- NOTE | 2024-06-24 08:11 | PCM.PN.CARD ---
Subjective Subjective Patient sitting up in the chair resting comfortably. Reports he still having some scant sputum production with his cough. He denies any anginal type symptoms. Troponins have turned positive. EKG shows nonspecific ST changes with sinus tachycardia June 23. This morning his rhythm is normal sinus rhythm at 79 bpm with occasional PACs and occasional PVCs. The patient's echo from yesterday revealed segmental wall motion abnormality in the inferior and septal areas. Right ventricular systolic pressure was 46 his left ventricular ejection fraction was 40%. Objective Data Vital Signs: Vital Signs Temp Pulse Resp BP Pulse Ox O2 Del Method O2 Flow Rate 97.6 F L 76 14 121/74 H 93 Nasal Cannula 3 06/24/24 00:00 06/24/24 07:12 06/24/24 07:12 06/24/24 06:00 06/24/24 07:12 06/24/24 07:12 06/24/24 07:12 FiO2 35 06/23/24 07:09 Oxygen Flow Rate (L/min) [ 2 AMBULATING with Oxygen #1] Oxygen Flow Rate (L/min) [At 2 REST with Oxygen] Oxygen Flow Rate (L/min) 3 Oxygen Delivery Method Nasal Cannula Weight: 207 lb 0.225 oz Body Mass Index (BMI) 29.0 Intake & Output: Intake and Output for Last 24 Hours 06/22/24 06/23/24 06/24/24 23:59 23:59 23:59 Intake Total 4073.33 / 4073.33 3529.79 / 3529.79 443 / 443 Output Total 6600 / 6600 5325 / 5325 550 / 550 Balance -2526.67 / -2526.67 -1795.21 / -1795.21 -107 / -107 Lab / Micro Data Attestation: I reviewed the patient's lab results. 06/24/24 05:25 06/24/24 05:25 Labs: Laboratory Results - last 24 hr 06/23/24 10:10: PT 15.4 H, INR 1.2, APTT 26.9 06/23/24 11:11: POC Glucose 379 H 06/23/24 15:57: POC Glucose 433 H 06/23/24 17:15: APTT 49.9 H 06/23/24 21:18: POC Glucose 367 H 06/23/24 22:45: APTT 53.8 H 06/24/24 05:25: WBC 14.2 H, RBC 3.12 L, Hgb 10.2 L, Hct 29.7 L, MCV 95.2 H, MCH 32.7 H, MCHC 34.3, RDW Std Deviation 51.9 H, RDW Coeff of Tarik 14.9 H, Plt Count 210, MPV 10.9, Immature Gran % (Auto) 2.300 H, Neut % (Auto) 88.6 H, Lymph % (Auto) 5.0 L, [place] % (Auto) 3.8, Eos % (Auto) 0.0, Baso % (Auto) 0.3, Absolute Neuts (auto) 12.6 H, Absolute Lymphs (auto) 0.71 L, Nucleated RBC % 0, APTT 115.9 H*, Sodium 133 L, Potassium 4.4, Chloride 105, Carbon Dioxide 21.0, Anion Gap 7, BUN 29 H, Creatinine 1.00, Estim Creat Clear Calc 75.85, Est GFR (MDRD) Af Amer 94, Est GFR (MDRD) Non-Af 78, BUN/Creatinine Ratio 29.1 H, Glucose 264 H, Calcium 7.3 L 06/24/24 07:41: POC Glucose 245 H Micro: Microbiology 06/20/24 14:40 Urine, Midstream Urine Culture - Final ESBL Escherichia coli 06/23/24 04:43 Mucosa - Nasopharyngeal Respiratory Panel (PCR) - Final 06/23/24 04:43 Mucosa - Nasopharyngeal SARS-CoV-2, Influenza & RSV (PCR) - Final 06/20/24 15:25 Blood Culture (Wb) - Anticubital Right Blood Culture - Preliminary ESBL Escherichia coli Rhythm Strip Rhythm Strip: Sinus Rhythm Rate: 79 Ectopy: PVC(s) and PAC(s) Cardiology Labs/Tests 06/23/24 10:10: PT 15.4 H, INR 1.2, APTT 26.9 06/23/24 17:15: APTT 49.9 H 06/23/24 22:45: APTT 53.8 H 06/24/24 05:25: WBC 14.2 H, RBC 3.12 L, Hgb 10.2 L, Hct 29.7 L, MCV 95.2 H, MCH 32.7 H, MCHC 34.3, Plt Count 210, MPV 10.9, Immature Gran % (Auto) 2.300 H, Neut % (Auto) 88.6 H, Lymph % (Auto) 5.0 L, [place] % (Auto) 3.8, Eos % (Auto) 0.0, Baso % (Auto) 0.3, Absolute Neuts (auto) 12.6 H, Nucleated RBC % 0, APTT 115.9 H*, Sodium 133 L, Potassium 4.4, Chloride 105, Carbon Dioxide 21.0, Anion Gap 7, BUN 29 H, Creatinine 1.00, Est GFR (MDRD) Af Amer 94, Est GFR (MDRD) Non-Af 78, BUN/Creatinine Ratio 29.1 H, Glucose 264 H, Calcium 7.3 L Rhythm: EKG: ECHO: Stress Test: Cardiac Cath: PCI: CT Surgery: Holter monitor: EPS: PPM: CXR: Chest CT Scan: Radiography Diagnostic Testing: Radiology Impression Chest CTA 06/23/24 10:03 IMPRESSION: No evidence of pulmonary embolism. Bibasilar atelectasis more prominent right lung base. Diffuse emphysematous changes worse in the upper lobes. Electronically Signed: Anibal Jimenez MD at 11:01 EDT , Echocardiogram 06/23/24 13:56 Interpretation Summary Severe inferior, inferior septal and anterior septal hypokinesis. Estimated LVEF 40%. Mild (1+) mitral valve insufficiency. Mild tricuspid valve insufficiency. Right ventricular systolic pressure estimated to be 46 mmHg. Aortic sclerosis, no stenosis. The study was technically difficult. Ordering Physician: Karlos Dixon Performed By: Justo Wei RCS Physical Exam Const alert and oriented x3 HEENT normocephalic Eyes EOMs intact bilaterally Neck no JVD Chest inspection of chest normal Resp normal respiratory effort Auscultation: wheezes scattered wheezes and throughout and diminished lung sounds bilateral lower Cardio regular rate, regular rhythm, S1 normal heart sound, S2 normal heart sound, no murmurs, no rub and no gallops Extremity no pedal edema Skin Skin Narrative: Hyperpigmentation on the lower extremities. Neuro Neuro Narrative: Alert and oriented x 3 he does have a hearing deficit. Psych mental status grossly normal Assessment & Plan Assessment/Plan (1) Elevated troponin: PLAN: Patient's second troponin was 742 first troponin 204. There is no significant definitive EKG changes. There is a nonspecific ST-T wave changes associated with sinus tachycardia on June 23. The patient denies any anginal type symptoms. He has no previous history of coronary artery disease. The patient's echocardiogram done June 23 showed severe hypokinesis of the inferior and inferior septal areas. The ejection fraction estimated at 40%. Given these wall motion abnormalities in the face of the positive troponins would ideally recommend cardiac catheterization. However, I am concerned about the patient's bacteremia and his white count is still elevated at 14,000. At this point in time we will defer a final decision on the timing of invasive evaluation for his coronary disease. Will reevaluate for possible catheterization early next week prior to discharge or alternatively deferred until definitive therapy is completed for the bacteremia and bring him back for outpatient evaluation for invasive cardiac catheterization. (2) Bacteremia due to Gram-negative bacteria: PLAN: Patient is being treated with antibiotics and monitored by ICU and hospitalist service. PLAN: Plan Will defer decision on timing of cardiac catheterization until we can get a better idea about the resolution of his bacteremia and safety of pursuing invasive evaluation and possible stent deployment. Charges/Coding Visit Charges Inpatient E&M: 17501 Subs Hosp L2
--- NOTE | 2024-06-24 08:39 | CASEMGMT ---
RN JANINA NOTE: Received call from Tash @ [facility] inquiring if pt will be discharging in the next couple of days. Made aware he may still be @ [facility] through the weekend, but this is not known for sure. She asks for call back @ [phone] ext [phone] for update/if dc date is determined. Chelsie, [employer] JANINA, updated. Jessica EMERSONN RN CM
[2024-06-24] MEDS: HEPARIN/D5w 25,000 UNITS 25,000 UNITS/250 ML IV.SOLN. 9 UNITS CONT INF (10:26)
--- NOTE | 2024-06-24 11:37 | CASEMGMT ---
TC to [facility] oxygen extension and left vm that pt will not be dc'd today or this weekend.
[2024-06-24 13:41] LABS: Partial Thromboplast Time 34.7 Seconds (24.1-36.2)
--- NOTE | 2024-06-24 13:56 | PCM.PN.ID ---
Physical Exam Narrative Feeling better, no fever, no abd pain, no n/v/d. Const alert and no apparent distress General Appearance: cooperative Resp normal air movement and clear to auscultation bilaterally Cardio regular rate and regular rhythm GI soft to palpation, non-tender and non-distended Skin no rashes or lesions noted ID ID: Route of nutrition/ use of supplements: [] Nutritional Intake: [] IV Site: [] Aguilera Catheter: [] Assessment & Plan Assessment/Plan (1) Complicated UTI (urinary tract infection): PLAN: ESBL ecoli bacteremia. 3rd infection in 2 months, including bacteremia at end of April and again now. 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 Some bladder thickening, but no stones or hydro seen on CT. Feeling better, no fever last night, wbc overall is better. Ucx with ecoli. Will cont meropenem. Will follow (2) Bacteremia due to Gram-negative bacteria:
[2024-06-24 15:18] LABS: Bedside Glucose 271 mg/dL (74-106)
[2024-06-24] MEDS: Insulin Glargine-YFGN 100 UNIT/ML Pen 15 UNIT SC ×2 (17:01→22:19)
[2024-06-24 17:19] LABS: Bedside Glucose 308 mg/dL (74-106)
[2024-06-24] MEDS: Heparin Injection (Vial) 5,000 UNIT/ML VIAL IV (19:00)
[2024-06-24] MEDS: MELATONIN 3 MG TABLET PO (22:21)
[2024-06-24] MEDS: Primidone 50 MG Tablet PO (22:23)
[2024-06-25] VITALS (7 sets, daily range): BP systolic 97–121; BP diastolic 62–75; PULSE 59–74; RESP 16–20; TEMP 36.4–36.9; O2SAT 94–98; BMI 28.9
[2024-06-25 01:28] LABS: Partial Thromboplast Time 49.9 Seconds (24.1-36.2)
[2024-06-25 03:33] LABS: Bedside Glucose 402 mg/dL (74-106)
[2024-06-25] MEDS: Meropenem 1 GM in 0.9% Normal Saline (100mL MB+) 100 ML IV ×3 (06:02→20:45)
[2024-06-25 06:09] LABS: Absolute Lymphocyte Count 1.03 X10^3/uL (0.83-4.51); Absolute Neutrophil Count 12.3 X10^3/uL (2.0-7.7); Basophil# 0.06 X10^3/uL; Basophil% 0.4 % (0-1); Hemoglobin 12.2 g/dL (13.0-16.5); Lymphocyte # 1.03 X10^3/ul (0.83-4.51); Mean Corp Hgb Conc 33.9 g/dL (32-36); Mean Corpuscular Hgb 31.9 pg (27.0-32.0); Mean Platelet Vol. 10.5 fl (6.2-12.0); Monocyte# 0.63 X10^3/uL; Monocyte% 4.3 % (0-10); NRBC Flagged by Analyzer 0.1 % (0-5); Neutrophil % 83.9 % (47-70); Platelet Count 323 K/mm3 (150-450); RBC Distribution Width CV 14.8 % (11.6-14.6); RBC Distribution Width SD 51.6 fl (35.1-43.9); Red Blood Count 3.83 M/mm3 (4.6-6.2); White Blood Count 14.7 K/mm3 (4.4-11.0)
[2024-06-25] MEDS: Insulin Lispro 100 UNIT/ML INSULN.PEN SC ×5 (06:38→22:35)
[2024-06-25 06:56] LABS: Bedside Glucose 325 mg/dL (74-106)
[2024-06-25 06:56] LABS: Anion Gap 7 (5-15); BUN 34 mg/dL (7-18); BUN/Creat Ratio 29.3 RATIO (10-20); Calcium,Total 8.5 mg/dL (8.5-10.1); Chloride 100 mmol/L (98-107); Creatinine, Serum 1.16 mg/dL (0.70-1.30); EST Glomerular Filtration Rate 65 mL/min (>60); Est Glom Filt Rate - Afr Amer 79 mL/min (>60); Estimated Creatinine Clearance 65.32 ml/min; Glucose 352 mg/dL (74-106); Potassium 4.1 mmol/L (3.5-5.1); Sodium Level 131 mmol/L (136-145)
[2024-06-25] MEDS: Ipratropium/Albuterol Sulfate 3 ML AMPUL.NEB INHALATION ×3 (07:05→19:32)
--- NOTE | 2024-06-25 08:48 | PN.HOSP_ITS ---
Reason for Visit Reason for Visit: Diagnoses Elevated white blood cell count, unspecified (06/20/24) Type 2 diabetes mellitus with hyperglycemia (06/20/24) Type 2 diabetes mellitus without complications (06/20/24) Other disorders of bilirubin metabolism (06/20/24) Hypo-osmolality and hyponatremia (06/20/24) Urinary tract infection, site not specified (06/20/24) Hypoxemia (06/20/24) Right upper quadrant pain (06/20/24) Elevation of levels of liver transaminase levels (06/20/24) Bacteremia (06/20/24) Other specified abnormal findings of blood chemistry (06/20/24) Subjective Subjective Feeling well. No new events. Objective Data Objective Data Vital Signs: Vital Signs Temp Pulse Resp BP Pulse Ox O2 Del Method O2 Flow Rate 36.5 C L 74 18 110/75 96 Room Air 2 06/25/24 05:50 06/25/24 07:06 06/25/24 07:06 06/25/24 05:50 06/25/24 07:06 06/25/24 08:05 06/24/24 09:00 FiO2 35 06/23/24 07:09 Oxygen Flow Rate (L/min) [ 2 AMBULATING with Oxygen #1] Oxygen Flow Rate (L/min) [At 2 REST with Oxygen] Oxygen Flow Rate (L/min) 2 Oxygen Delivery Method Room Air Weight: 93.7 kg Body Mass Index (BMI) 28.9 Intake & Output: Intake and Output for Last 24 Hours 06/23/24 06/24/24 06/25/24 23:59 23:59 23:59 Intake Total 3529.79 / 3529.79 784.70 / 1024.70 689.83 / 689.83 Output Total 5325 / 5325 3425 / 4325 2600 / 2600 Balance -1795.21 / -1795.21 -2640.30 / -3300.30 -1910.17 / -1910.17 Lab / Micro Data 06/25/24 05:35 06/25/24 05:35 Labs: Laboratory Results - last 24 hr 06/24/24 11:28: POC Glucose 271 H 06/24/24 13:12: APTT 34.7 06/24/24 16:58: POC Glucose 308 H 06/24/24 18:33: APTT 37.0 H 06/24/24 22:16: POC Glucose 402 H 06/25/24 00:40: APTT 49.9 H 06/25/24 05:35: WBC 14.7 H, RBC 3.83 L, Hgb 12.2 L, Hct 36.0 L, MCV 94.0, MCH 31.9, MCHC 33.9, RDW Std Deviation 51.6 H, RDW Coeff of Tarik 14.8 H, Plt Count 323, MPV 10.5, Immature Gran % (Auto) 4.400 H, Neut % (Auto) 83.9 H, Lymph % (Auto) 7.0 L, [place] % (Auto) 4.3, Eos % (Auto) 0.0, Baso % (Auto) 0.4, Absolute Neuts (auto) 12.3 H, Absolute Lymphs (auto) 1.03, Nucleated RBC % 0.1, Sodium 131 L, Potassium 4.1, Chloride 100, Carbon Dioxide 24.0, Anion Gap 7, BUN 34 H, Creatinine 1.16, Estim Creat Clear Calc 65.32, Est GFR (MDRD) Af Amer 79, Est GFR (MDRD) Non-Af 65, BUN/Creatinine Ratio 29.3 H, Glucose 352 H, Calcium 8.5 06/25/24 06:37: POC Glucose 325 H Micro: Microbiology 06/20/24 15:25 Blood Culture (Wb) - Anticubital Right Blood Culture - Final ESBL Escherichia coli 06/20/24 14:40 Urine, Midstream Urine Culture - Final ESBL Escherichia coli 06/23/24 04:43 Mucosa - Nasopharyngeal Respiratory Panel (PCR) - Final 06/23/24 04:43 Mucosa - Nasopharyngeal SARS-CoV-2, Influenza & RSV (PCR) - Final Rhythm Strip Rhythm Strip: Sinus Rhythm Rate: 79 Ectopy: PVC(s) and PAC(s) Physical Exam Const alert and no apparent distress HEENT head/scalp atraumatic Resp normal respiratory effort, no retractions, no use of accessory muscles and clear to auscultation bilaterally Cardio regular rate, regular rhythm, S1 normal heart sound and S2 normal heart sound GI normal to inspection, nondistended, normoactive bowel sounds, soft to palpation, non-tender and non-distended Neuro Sensorium / Orientation: awake and alert Assessment & Plan Assessment/Plan (1) Complicated UTI (urinary tract infection): PLAN: Plan Sepsis * POA with qSOFA of 2 and SIRS of 4 * 2/2 UTI and bacteremia * supportive mgmt. Acute Hypoxic respiratory failure * resolved 2/2 to AECOPD * developed 06/23 requiring BiPAP. Since improved. Now resolved on room air. * CTA showed bilateral lower ATX and severe emphysema in upper lobes. NSTEMI * unclear type at present, though I favor type II event. * troponins trending upwards. * dc heparin . continue ASA, clopidogrel, HIS. * cardiology following. [facility] catheterization at some inpt v outpt CAUTI * catheter changed * Cx showing ESBL E. coli * abx now on meropenem. * ID following Bacteremia * ESBL E. coli. 2/ to UTI. * abx as above. * monitor Hyponatremia * improving. suspect due to chlorthalidone, which has been held. * monitor Hypokalemia * Magnesium WNL * improving. continue potassium replacement. DM2, uncontrolled * a1c 10 * on glipizide at home * on SSI. will increase glargine from 10 QHS to 15 BID. Acute COPD exacerbation: * improved * BDs, change methylpred to prednisone Chronic conditions: * Essential HTN: controlled. chlorthalidone held given hyponatremia * HLD: statin * GERD: PPI * BPH with obstruction: tamsulosin. Chronic aguilera. Follow up with as outpt. VTE prophylaxis: enoxparin. Disposition: pending outpt IV abx and whether LHC will be performed inpt v outpt. Charges/Coding Visit Charges Inpatient E&M: 02372 Subs Hosp L2
[2024-06-25] MEDS: Pantoprazole Sodium 20 MG Tablet PO (08:51)
[2024-06-25] MEDS: Aspirin 81 MG TAB.CHEW PO (08:51)
[2024-06-25] MEDS: Potassium Chloride Oral Tablet 20 MEQ 40 MEQ PO ×2 (08:51→16:56)
[2024-06-25] MEDS: Furosemide 20 MG Tablet PO (08:52)
[2024-06-25] MEDS: Carvedilol 3.125 MG TABLET PO ×2 (08:52→20:44)
[2024-06-25] MEDS: Clopidogrel Bisulfate 75 MG Tablet PO (08:52)
[2024-06-25] MEDS: Multivitamins,Therapeutic Tablet 1 TABLET PO (08:52)
[2024-06-25] MEDS: amLODIPine 5 MG Tablet PO (08:53)
[2024-06-25] MEDS: Atorvastatin Calcium 40 MG Tablet PO (08:53)
[2024-06-25] MEDS: Fluticasone 0.05% 1 SPRAY NASAL.SRY NASAL (08:54)
[2024-06-25] MEDS: Nystatin Powder 15gm Bottle 1 APPLIC TOPICAL (08:54)
[2024-06-25] MEDS: Insulin Glargine-YFGN 100 UNIT/ML Pen 15 UNIT SC ×2 (08:55→20:48)
[2024-06-25] MEDS: Lisinopril 2.5 MG Tablet PO (08:56)
[2024-06-25] MEDS: HEPARIN/D5w 25,000 UNITS 25,000 UNITS/250 ML IV.SOLN. 12 UNITS CONT INF (10:33)
[2024-06-25 11:06] LABS: Partial Thromboplast Time 49.6 Seconds (24.1-36.2)
[2024-06-25 11:38] LABS: Bedside Glucose 347 mg/dL (74-106)
[2024-06-25] MEDS: 0.9% Saline Lock 10 ML Syringe IV ×2 (13:22→20:46)
[2024-06-25 16:37] LABS: Bedside Glucose 457 mg/dL (74-106)
[2024-06-25] MEDS: Tamsulosin HCl 0.4 MG Capsule PO (20:43)
[2024-06-25] MEDS: MELATONIN 3 MG TABLET PO (20:43)
[2024-06-25] MEDS: Primidone 50 MG Tablet PO (20:44)
[2024-06-25 21:20] LABS: Bedside Glucose 413 mg/dL (74-106)
[2024-06-26] VITALS (9 sets, daily range): BP systolic 100–123; BP diastolic 60–86; PULSE 51–62; RESP 15–18; TEMP 36.1–36.5; O2SAT 94–97; BMI 28.8
[2024-06-26] MEDS: Insulin Lispro 100 UNIT/ML INSULN.PEN SC ×4 (06:27→20:39)
[2024-06-26] MEDS: Meropenem 1 GM in 0.9% Normal Saline (100mL MB+) 100 ML IV ×3 (06:28→20:44)
[2024-06-26] MEDS: Enoxaparin 40 MG/0.4 ML Syringe SC (06:29)
[2024-06-26 06:56] LABS: Bedside Glucose 215 mg/dL (74-106)
[2024-06-26] MEDS: Ipratropium/Albuterol Sulfate 3 ML AMPUL.NEB INHALATION ×4 (07:21→19:50)
[2024-06-26] MEDS: Carvedilol 3.125 MG TABLET PO ×2 (08:41→20:36)
[2024-06-26] MEDS: Potassium Chloride Oral Tablet 20 MEQ 40 MEQ PO ×2 (08:41→16:32)
[2024-06-26] MEDS: Atorvastatin Calcium 40 MG Tablet PO (08:41)
[2024-06-26] MEDS: Lisinopril 2.5 MG Tablet PO (08:42)
[2024-06-26] MEDS: amLODIPine 5 MG Tablet PO (08:42)
[2024-06-26] MEDS: Pantoprazole Sodium 20 MG Tablet PO (08:42)
[2024-06-26] MEDS: Clopidogrel Bisulfate 75 MG Tablet PO (08:42)
[2024-06-26] MEDS: Furosemide 20 MG Tablet PO (08:42)
[2024-06-26] MEDS: Aspirin 81 MG TAB.CHEW PO (08:43)
[2024-06-26] MEDS: Multivitamins,Therapeutic Tablet 1 TABLET PO (08:43)
[2024-06-26] MEDS: predniSONE 20 MG Tablet 40 MG PO (08:43)
[2024-06-26] MEDS: Nystatin Powder 15gm Bottle 1 APPLIC TOPICAL (08:44)
[2024-06-26] MEDS: Fluticasone 0.05% 1 SPRAY NASAL.SRY NASAL (08:44)
--- NOTE | 2024-06-26 08:44 | PN.HOSP_ITS ---
Reason for Visit Reason for Visit: Diagnoses Elevated white blood cell count, unspecified (06/20/24) Type 2 diabetes mellitus with hyperglycemia (06/20/24) Type 2 diabetes mellitus without complications (06/20/24) Other disorders of bilirubin metabolism (06/20/24) Hypo-osmolality and hyponatremia (06/20/24) Urinary tract infection, site not specified (06/20/24) Hypoxemia (06/20/24) Right upper quadrant pain (06/20/24) Elevation of levels of liver transaminase levels (06/20/24) Bacteremia (06/20/24) Other specified abnormal findings of blood chemistry (06/20/24) Subjective Subjective Feels well. Got his head shaved today. Objective Data Objective Data Vital Signs: Vital Signs Temp Pulse Resp BP Pulse Ox O2 Del Method O2 Flow Rate 36.1 C L 61 16 100/86 H 97 Room Air 2 06/26/24 08:33 06/26/24 08:33 06/26/24 08:33 06/26/24 08:33 06/26/24 08:33 06/26/24 08:33 06/24/24 09:00 FiO2 35 06/23/24 07:09 Oxygen Flow Rate (L/min) [ 2 AMBULATING with Oxygen #1] Oxygen Flow Rate (L/min) [At 2 REST with Oxygen] Oxygen Flow Rate (L/min) 2 Oxygen Delivery Method Room Air Weight: 93.2 kg Body Mass Index (BMI) 28.8 Intake & Output: Intake and Output for Last 24 Hours 06/24/24 06/25/24 06/26/24 23:59 23:59 23:59 Intake Total 784.70 / 1024.70 3548.62 / 3548.62 370 / 370 Output Total 3425 / 4325 5350 / 5350 800 / 800 Balance -2640.30 / -3300.30 -1801.38 / -1801.38 -430 / -430 Lab / Micro Data 06/25/24 05:35 06/25/24 05:35 Labs: Laboratory Results - last 24 hr 06/25/24 09:07: APTT 49.6 H 06/25/24 11:16: POC Glucose 347 H 06/25/24 16:19: POC Glucose 457 H* 06/25/24 20:47: POC Glucose 413 H 06/26/24 06:27: POC Glucose 215 H Micro: Microbiology 06/20/24 15:25 Blood Culture (Wb) - Anticubital Right Blood Culture - Final ESBL Escherichia coli 06/20/24 14:40 Urine, Midstream Urine Culture - Final ESBL Escherichia coli 06/23/24 04:43 Mucosa - Nasopharyngeal Respiratory Panel (PCR) - Final 06/23/24 04:43 Mucosa - Nasopharyngeal SARS-CoV-2, Influenza & RSV (PCR) - Final Rhythm Strip Rhythm Strip: Sinus Rhythm Rate: 79 Ectopy: PVC(s) and PAC(s) Physical Exam Const alert and no apparent distress Resp normal respiratory effort, no retractions, no use of accessory muscles and clear to auscultation bilaterally Cardio regular rate, regular rhythm, S1 normal heart sound and S2 normal heart sound GI normal to inspection, nondistended, normoactive bowel sounds, soft to palpation, non-tender and non-distended Extremity normal to inspection and no clubbing, cyanosis or edema Neuro Sensorium / Orientation: awake and alert Assessment & Plan Assessment/Plan (1) Complicated UTI (urinary tract infection): PLAN: Plan Sepsis * POA with qSOFA of 2 and SIRS of 4. Since resolved. * 2/2 UTI and bacteremia * supportive mgmt. Acute Hypoxic respiratory failure * resolved 2/2 to AECOPD * developed 06/23 requiring BiPAP. Since improved. Now resolved on room air. * CTA showed bilateral lower ATX and severe emphysema in upper lobes. NSTEMI * unclear type at present, though I favor type II event. * troponins trending upwards. * dc heparin . continue ASA, clopidogrel, HIS. * cardiology following. [facility] catheterization at some inpt v outpt CAUTI * catheter changed * Cx showing ESBL E. coli * abx now on meropenem. * ID following Bacteremia * ESBL E. coli. 2/2 to UTI. * abx as above. * monitor Hyponatremia * improving. suspect due to chlorthalidone, which has been held. * monitor Hypokalemia * Magnesium WNL * improving. continue potassium replacement. DM2, uncontrolled * a1c 10 * on glipizide at home * on SSI. will increase glargine from 10 QHS to 15 BID. Acute COPD exacerbation: * improved * BDs, change methylpred to prednisone Chronic conditions: * Essential HTN: controlled. chlorthalidone held given hyponatremia * HLD: statin * GERD: PPI * BPH with obstruction: tamsulosin. Chronic aguilera. Follow up with as outpt. VTE prophylaxis: enoxparin. Disposition: pending outpt IV abx and whether LHC will be performed inpt v outpt. Charges/Coding Visit Charges Inpatient E&M: 08908 Subs Hosp L2
[2024-06-26] MEDS: 0.9% Saline Lock 10 ML Syringe IV (08:45)
[2024-06-26] MEDS: Insulin Glargine-YFGN 100 UNIT/ML Pen 15 UNIT SC ×2 (10:49→20:40)
[2024-06-26 11:30] LABS: Bedside Glucose 305 mg/dL (74-106)
[2024-06-26 19:21] LABS: Bedside Glucose 364 mg/dL (74-106)
[2024-06-26] MEDS: Tamsulosin HCl 0.4 MG Capsule PO (20:36)
[2024-06-26] MEDS: Primidone 50 MG Tablet PO (20:36)
[2024-06-26] MEDS: MELATONIN 3 MG TABLET PO (20:36)
[2024-06-26 21:11] LABS: Bedside Glucose 410 mg/dL (74-106)
[2024-06-27] VITALS (9 sets, daily range): BP systolic 106–126; BP diastolic 69–76; PULSE 55–84; RESP 14–18; TEMP 36.1–36.7; O2SAT 93–97; BMI 28.8
[2024-06-27] MEDS: 0.9% Saline Lock 10 ML Syringe IV (04:42)
[2024-06-27] MEDS: Meropenem 1 GM in 0.9% Normal Saline (100mL MB+) 100 ML IV ×3 (04:43→20:56)
[2024-06-27] MEDS: Enoxaparin 40 MG/0.4 ML Syringe SC (04:43)
[2024-06-27 06:12] LABS: Hematocrit 41.3 % (40-54); Hemoglobin 13.9 g/dL (13.0-16.5); Mean Corp Hgb Conc 33.7 g/dL (32-36); Mean Corpuscular Hgb 32.4 pg (27.0-32.0); Mean Corpuscular Volume 96.3 fL (80-94); Mean Platelet Vol. 9.6 fl (6.2-12.0); POSITIVE COUNT YES; POSITIVE MORPHOLOGY YES; Platelet Count 441 K/mm3 (150-450); RBC Distribution Width CV 15.1 % (11.6-14.6); RBC Distribution Width SD 53.6 fl (35.1-43.9); Red Blood Count 4.29 M/mm3 (4.6-6.2); White Blood Count 17.5 K/mm3 (4.4-11.0)
[2024-06-27] MEDS: Insulin Lispro 100 UNIT/ML INSULN.PEN SC ×4 (06:15→20:55)
[2024-06-27 06:24] LABS: Differential Indicated MANUAL DIFF
[2024-06-27 06:46] LABS: Anion Gap 6 (5-15); BUN 27 mg/dL (7-18); BUN/Creat Ratio 27.4 RATIO (10-20); Calcium,Total 9.1 mg/dL (8.5-10.1); Chloride 104 mmol/L (98-107); Creatinine, Serum 0.99 mg/dL (0.70-1.30); EST Glomerular Filtration Rate 79 mL/min (>60); Est Glom Filt Rate - Afr Amer 95 mL/min (>60); Estimated Creatinine Clearance 76.46 ml/min; Glucose 162 mg/dL (74-106); Potassium 4.8 mmol/L (3.5-5.1); Sodium Level 135 mmol/L (136-145)
[2024-06-27 06:53] LABS: Bedside Glucose 150 mg/dL (74-106)
[2024-06-27 07:06] LABS: Lymphocyte 8 % (19-41); Metamyelocyte 2 % (0-1); Monocyte 5 % (0-10); Myelocyte 2 % (0-0); Neutrophil-Band 3 % (0-5); Neutrophil-Segmented 80 % (47-70); Polychromasia 1+; Total Cells Counted 100 (MANUAL DIFF)
[2024-06-27 07:07] LABS: Platelet Estimate ADEQUATE (ADEQ)
[2024-06-27 07:08] LABS: Absolute Neutrophil Count 14.5 X10^3/uL (2.0-7.7)
[2024-06-27] MEDS: Ipratropium/Albuterol Sulfate 3 ML AMPUL.NEB INHALATION ×4 (07:08→20:06)
[2024-06-27] MEDS: Aspirin 81 MG TAB.CHEW PO (08:26)
[2024-06-27] MEDS: Potassium Chloride Oral Tablet 20 MEQ 40 MEQ PO ×2 (08:26→17:13)
[2024-06-27] MEDS: Carvedilol 3.125 MG TABLET PO ×2 (08:26→20:46)
[2024-06-27] MEDS: Multivitamins,Therapeutic Tablet 1 TABLET PO (08:26)
[2024-06-27] MEDS: Lisinopril 2.5 MG Tablet PO (08:27)
[2024-06-27] MEDS: Clopidogrel Bisulfate 75 MG Tablet PO (08:27)
[2024-06-27] MEDS: amLODIPine 5 MG Tablet PO (08:27)
[2024-06-27] MEDS: Pantoprazole Sodium 20 MG Tablet PO (08:27)
[2024-06-27] MEDS: Atorvastatin Calcium 40 MG Tablet PO (08:27)
[2024-06-27] MEDS: Furosemide 20 MG Tablet PO (08:28)
[2024-06-27] MEDS: predniSONE 20 MG Tablet 40 MG PO (08:28)
[2024-06-27] MEDS: Insulin Glargine-YFGN 100 UNIT/ML Pen 15 UNIT SC ×2 (08:29→20:47)
[2024-06-27] MEDS: Fluticasone 0.05% 1 SPRAY NASAL.SRY NASAL (08:30)
[2024-06-27] MEDS: Nystatin Powder 15gm Bottle 1 APPLIC TOPICAL ×2 (08:31→20:54)
--- NOTE | 2024-06-27 08:36 | PCM.PN.HOSP ---
Reason for Visit Reason for Visit: Diagnoses Elevated white blood cell count, unspecified (06/20/24) Type 2 diabetes mellitus with hyperglycemia (06/20/24) Type 2 diabetes mellitus without complications (06/20/24) Other disorders of bilirubin metabolism (06/20/24) Hypo-osmolality and hyponatremia (06/20/24) Urinary tract infection, site not specified (06/20/24) Hypoxemia (06/20/24) Right upper quadrant pain (06/20/24) Elevation of levels of liver transaminase levels (06/20/24) Bacteremia (06/20/24) Other specified abnormal findings of blood chemistry (06/20/24) Subjective Subjective Patient with no acute events overnight per self and nursing report aside from lower back discomfort, irritability as patient feels like he is not gotten any answers as to what is going on during admission unfortunately complicated by significant hearing deficits. Discussed his current presentation and all diagnoses since admission as well as plan of care which include follow-up with infectious disease for antibiotic therapy considerations as well as discussions with cardiology for possible outpatient versus inpatient cardiac catheterization to which she is amenable. Patient denies fevers, chills, nausea, emesis, abdominal pain, chest pain or dyspnea. Objective Data Objective Data Vital Signs: Vital Signs Temp Pulse Resp BP Pulse Ox O2 Del Method O2 Flow Rate 97.8 F 63 16 121/70 H 96 Room Air 2 06/27/24 03:10 06/27/24 03:10 06/27/24 03:10 06/27/24 03:10 06/27/24 03:10 06/27/24 03:10 06/24/24 09:00 FiO2 35 06/23/24 07:09 Oxygen Flow Rate (L/min) [ 2 AMBULATING with Oxygen #1] Oxygen Flow Rate (L/min) [At 2 REST with Oxygen] Oxygen Flow Rate (L/min) 2 Oxygen Delivery Method Room Air Weight: 206 lb 2.115 oz Body Mass Index (BMI) 28.8 Intake & Output: Intake and Output for Last 24 Hours 06/25/24 06/26/24 06/27/24 23:59 23:59 23:59 Intake Total 3548.62 / 3548.62 1860 / 1860 590 / 590 Output Total 5350 / 5350 4900 / 4900 2100 / 2100 Balance -1801.38 / -1801.38 -3040 / -3040 -1510 / -1510 Lab / Micro Data 06/27/24 05:59 06/27/24 05:59 Labs: Laboratory Results - last 24 hr 06/26/24 10:47: POC Glucose 305 H 06/26/24 16:31: POC Glucose 364 H 06/26/24 20:39: POC Glucose 410 H 06/27/24 05:59: WBC 17.5 H, RBC 4.29 L, Hgb 13.9, Hct 41.3, MCV 96.3 H, MCH 32.4 H, MCHC 33.7, RDW Std Deviation 53.6 H, RDW Coeff of Tarik 15.1 H, Plt Count 441, MPV 9.6, Neut % (Auto) Not Reportable, Absolute Neuts (auto) 14.5 H, Absolute Lymphs (auto) 1.40, Total Counted 100, Neutrophils % (Manual) 80 H, Band Neutrophils % 3, Lymphocytes % (Manual) 8 L, Monocytes % (Manual) 5, Metamyelocytes % 2 H, Myelocytes % 2 H, Diff Path Review May foll, Platelet Estimate ADEQUATE, Polychromasia 1+, Sodium 135 L, Potassium 4.8, Chloride 104, Carbon Dioxide 25.0, Anion Gap 6, BUN 27 H, Creatinine 0.99, Estim Creat Clear Calc 76.46, Est GFR (MDRD) Af Amer 95, Est GFR (MDRD) Non-Af 79, BUN/Creatinine Ratio 27.4 H, Glucose 162 H, Calcium 9.1 06/27/24 06:15: POC Glucose 150 H Micro: Microbiology 06/20/24 15:25 Blood Culture (Wb) - Anticubital Right Blood Culture - Final ESBL Escherichia coli 06/20/24 14:40 Urine, Midstream Urine Culture - Final ESBL Escherichia coli 06/23/24 04:43 Mucosa - Nasopharyngeal Respiratory Panel (PCR) - Final 06/23/24 04:43 Mucosa - Nasopharyngeal SARS-CoV-2, Influenza & RSV (PCR) - Final Rhythm Strip Rhythm Strip: Sinus Rhythm Rate: 79 Ectopy: PVC(s) and PAC(s) Physical Exam Narrative Physical Examination: General: Awake, alert, oriented x 3 and cooperative, seated upright in PCU bedside chair, irritable but notes feeling well otherwise, some back discomfort. Skin: Normal color, normal turgor, no icterus, no cyanosis except occasional staged ecchymoses likely labral related. HEENT: AT/NC, EOMI, PERRLA, MMM. Lungs: CTA bilaterally, moderate effort, mild decrease BL bases, no rales, ronchi or wheezing. Heart: Regular rate and rhythm; no gallop, rub audible. Abdomen: Soft, NTTP, ND, normal BS. Extremities: No cyanosis, no clubbing, no marked peripheral edema. Neurological: Patient awake, alert, oriented as noted, cognitive function intact; pupils equally reactive to light and accommodation, cranial nerves grossly normal, moving all 4 extremities, no focal deficits, strength improving, moderately global decrease Psychiatric: Affect appears mildly irritable, no acute evidence of depressive or anxiety feelings. Assessment & Plan Assessment/Plan (1) Bacteremia due to Gram-negative bacteria: PLAN: Plan The patient is a 73 y/o M w/ PMHx: BPH, Anxiety and Depression, HTN, HLD, COPD, Former tobacco use, GERD, Diabetes mellitus type II who presents to the [facility] ED on 06/20/24 with history of fever, malaise, generalized weakness as well as right upper abdominal pain without any nausea or emesis prompting eventual ED evaluation to be cautious. #1. Acute Sepsis (POA with qSOFA of 2 and SIRS of 4) secondary to Acute Complicated ESBL Catheter associated E. Coli UTI and Acute Bacteremia: Catheter changed upon presentation, Urine culture and blood culture with E. coli, continued on meropenem, WBC has been elevated however patient is on steroids for concurrent COPD exacerbation, per infectious disease plan for continued antibiotic therapy with completion 06/28/2024. #2. Acute Hypoxic Respiratory Failure secondary to Acute COPD Exacerbation: Initially required BiPAP, improved, transition to nasal cannula eventually weaned to room air, CTA with bibasilar atelectasis more prominent in right lung base, diffuse eczematous changes worse in the upper lobes, continue ATC duonebs, PRN albuterol, IV methylprednisolone initially with now transition to prednisone therapy, HOB, IS parameters, respiratory panel negative. Treated as noted above with meropenem, plan completion 06/28/2024 per ID direction. #3. Acute NSTEMI, suspected type II given presentation #1, #2: 06/23/2024 troponin initial 204 with repeat 742. 06/23/24 initial EKG with EKG with nonspecific ST changes with sinus tachycardia with no change from previous. 06/23/2024 echocardiogram with severe inferior, inferior septal and anterior septal hypokinesis, LVEF 40%, mild MVI, mild TVI, RVSP 46 mmHg, aortic sclerosis with no stenosis. Magnesium most recently 2.1 06/21/2024. Will maintain on a monitored bed, EKGs as needed. Continue medical management w/ asa, plavix, BB, statin per Cardiology direction. Cardiology consulted, following with planned future cardiac catheterization once clinically appropriate given bacteremia/infectious presentation, potentially outpatient. #4. Acute Hyponatremia, Suspected secondary to Diuretic: Admission Na 124, chlorthalidone held, judiciously hydrated however given presentation patient initiated on Lasix therapy per cardiology but per discussion 06/27/[address] Rojas will d/c and may use in the future PRN if needed. Sodium level improving, 06/27/2024 sodium 135, continue to trend. #5. Diabetes mellitus type II, uncontrolled: Hold oral home regimen, hemoglobin A1c significantly elevated 10%, placed initially on glargine 10 units nightly, increase to 15 twice daily in the setting of steroid usage, ADA diet, accu checks w/ ISS. #6. BPH with obstructive uropathy: We will continue patient on Flomax regimen, chronic Briggs in place changed upon presentation given acute presentation as noted #1. #7. Hypertension: Will continue cardiology initiated Coreg as well as Lasix regimen however per discussion with cardiology at discharge will d/c and may in future use potentially PRN, chlorthalidone had been discontinued as noted, PRN hydralazine. #8. Hyperlipidemia: Maintained on statin therapy. #9. Allergic rhinitis: We will continue patient home fluticasone regimen. #10. GERD: The patient on PPI. #11. DVT prophylaxis: Lovenox. #12. CODE STATUS: Full Code. Charges/Coding Visit Charges Inpatient E&M: 31572 [facility] Hosp L3
[2024-06-27 11:37] LABS: Bedside Glucose 283 mg/dL (74-106)
--- NOTE | 2024-06-27 13:59 | PCM.PN.ID ---
Physical Exam Narrative Feeling much better, breathing well, no fever, no abd pain, no n/v/d Const alert and no apparent distress General Appearance: cooperative Resp normal air movement and clear to auscultation bilaterally Cardio regular rate and regular rhythm GI soft to palpation, non-tender and non-distended Skin no rashes or lesions noted ID ID: Route of nutrition/ use of supplements: [] Nutritional Intake: [] IV Site: [] Aguilera Catheter: [] Assessment & Plan Assessment/Plan (1) Complicated UTI (urinary tract infection): PLAN: ESBL ecoli bacteremia. 3rd infection in 2 months, including bacteremia at end of April and again now. 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 Some bladder thickening, but no stones or hydro seen on CT. Feeling better. Ucx with ecoli. Will cont meropenem. Wbc is up but was started on steroids. Plan on abx finishing tomorrow. Will follow (2) Bacteremia due to Gram-negative bacteria:
[2024-06-27 17:35] LABS: Bedside Glucose 309 mg/dL (74-106)
[2024-06-27] MEDS: Primidone 50 MG Tablet PO (20:46)
[2024-06-27] MEDS: Tamsulosin HCl 0.4 MG Capsule PO (20:46)
[2024-06-27] MEDS: MELATONIN 3 MG TABLET PO (20:46)
[2024-06-27 23:23] LABS: Bedside Glucose 358 mg/dL (74-106)
[2024-06-28 04:36] VITALS: BMI 28.6
[2024-06-28 05:00] VITALS: BP 129/70; PULSE 56; RESP 17; TEMP 36.7; O2SAT 97
[2024-06-28] MEDS: Meropenem 1 GM in 0.9% Normal Saline (100mL MB+) 100 ML IV (06:17)
[2024-06-28] MEDS: Enoxaparin 40 MG/0.4 ML Syringe SC (06:17)
[2024-06-28] MEDS: Insulin Lispro 100 UNIT/ML INSULN.PEN SC ×2 (06:18→11:16)
[2024-06-28 06:49] LABS: Bedside Glucose 163 mg/dL (74-106)
[2024-06-28 07:07] VITALS: PULSE 68; RESP 16; O2SAT 96
[2024-06-28 07:07] LABS: Hemoglobin 14.4 g/dL (13.0-16.5); Mean Corp Hgb Conc 33.5 g/dL (32-36); Mean Corpuscular Hgb 32.5 pg (27.0-32.0); Mean Corpuscular Volume 97.1 fL (80-94); Mean Platelet Vol. 9.7 fl (6.2-12.0); POSITIVE COUNT YES; POSITIVE MORPHOLOGY YES; Platelet Count 448 K/mm3 (150-450); RBC Distribution Width CV 15.2 % (11.6-14.6); RBC Distribution Width SD 54.6 fl (35.1-43.9); Red Blood Count 4.43 M/mm3 (4.6-6.2); White Blood Count 18.1 K/mm3 (4.4-11.0)
[2024-06-28] MEDS: Ipratropium/Albuterol Sulfate 3 ML AMPUL.NEB INHALATION ×2 (07:07→11:05)
[2024-06-28 07:08] LABS: Differential Indicated MANUAL DIFF
--- NOTE | 2024-06-28 07:22 | PN.HOSP_ITS ---
Reason for Visit Reason for Visit: Diagnoses Elevated white blood cell count, unspecified (06/20/24) Type 2 diabetes mellitus with hyperglycemia (06/20/24) Type 2 diabetes mellitus without complications (06/20/24) Other disorders of bilirubin metabolism (06/20/24) Hypo-osmolality and hyponatremia (06/20/24) Urinary tract infection, site not specified (06/20/24) Hypoxemia (06/20/24) Right upper quadrant pain (06/20/24) Elevation of levels of liver transaminase levels (06/20/24) Bacteremia (06/20/24) Other specified abnormal findings of blood chemistry (06/20/24) Subjective Subjective Patient with no acute events overnight per self and per nursing report. Discussed plan of care which included completion of antibiotic therapy day and discharged to home with follow-up with cardiology as well as [facility] with [facility] as well as PCP to which he was amenable. Patient declined any therapies outpatient but was improved and ambulating well in his room without assist. Discussed plan which included patient ongoing catheter with [facility] and de-escalation per urology discretion given his issue with recurrent obstructive uropathy and need for catheter in the setting of recent acute infection. Patient denies fevers, chills, nausea, emesis, abdominal pain, chest pain or dyspnea. Objective Data Objective Data Vital Signs: Vital Signs Temp Pulse Resp BP Pulse Ox O2 Del Method O2 Flow Rate 98.1 F 56 L 17 129/70 H 97 Room Air 2 06/28/24 05:00 06/28/24 05:00 06/28/24 05:00 06/28/24 05:00 06/28/24 05:00 06/28/24 05:00 06/24/24 09:00 FiO2 35 06/23/24 07:09 Oxygen Flow Rate (L/min) [ 2 AMBULATING with Oxygen #1] Oxygen Flow Rate (L/min) [At 2 REST with Oxygen] Oxygen Flow Rate (L/min) 2 Oxygen Delivery Method Room Air Weight: 205 lb 4.006 oz Body Mass Index (BMI) 28.6 Intake & Output: Intake and Output for Last 24 Hours 06/26/24 06/27/24 06/28/24 23:59 23:59 23:59 Intake Total 1860 / 1860 710 / 830 600 / 600 Output Total 4900 / 4900 3950 / 4350 1350 / 1350 Balance -3040 / -3040 -3240 / -3520 -750 / -750 Lab / Micro Data 06/28/24 05:59 06/28/24 05:59 Labs: Laboratory Results - last 24 hr 06/27/24 11:19: POC Glucose 283 H 06/27/24 17:09: POC Glucose 309 H 06/27/24 20:53: POC Glucose 358 H 06/28/24 05:59: WBC 18.1 H, RBC 4.43 L, Hgb 14.4, Hct 43.0, MCV 97.1 H, MCH 32.5 H, MCHC 33.5, RDW Std Deviation 54.6 H, RDW Coeff of Tarik 15.2 H, Plt Count 448, MPV 9.7, Neut % (Auto) Not Reportable 06/28/24 06:16: POC Glucose 163 H Micro: Microbiology 06/20/24 15:25 Blood Culture (Wb) - Anticubital Right Blood Culture - Final ESBL Escherichia coli 06/20/24 14:40 Urine, Midstream Urine Culture - Final ESBL Escherichia coli 06/23/24 04:43 Mucosa - Nasopharyngeal Respiratory Panel (PCR) - Final 06/23/24 04:43 Mucosa - Nasopharyngeal SARS-CoV-2, Influenza & RSV (PCR) - Final Rhythm Strip Rhythm Strip: Sinus Rhythm Rate: 79 Ectopy: PVC(s) and PAC(s) Physical Exam Narrative Physical Examination: General: Awake, alert, oriented x 3 and cooperative, seated upright in PCU bedside chair, calm, eager for discharge, amenable to discharge plan. Skin: Normal color, normal turgor, no icterus, no cyanosis except occasional staged ecchymoses likely labral related. HEENT: AT/NC, EOMI, PERRLA, MMM. Lungs: CTA bilaterally, moderate effort, mild decrease BL bases, no rales, ronchi or wheezing. Heart: Regular rate and rhythm; no gallop, rub audible. Abdomen: Soft, NTTP, ND, normal BS. Extremities: No cyanosis, no clubbing, no marked peripheral edema. Neurological: Patient awake, alert, oriented as noted, cognitive function intact; pupils equally reactive to light and accommodation, cranial nerves grossly normal, moving all 4 extremities, no focal deficits, strength improving, moderately globally decreased. Psychiatric: Affect appears calm, eager for discharge, no acute evidence of depressive or anxiety feelings. Assessment & Plan Assessment/Plan (1) Bacteremia due to Gram-negative bacteria: PLAN: Plan The patient is a 73 y/o M w/ PMHx: BPH, Anxiety and Depression, HTN, HLD, COPD, Former tobacco use, GERD, Diabetes mellitus type II who presents to the [facility] ED on 06/20/24 with history of fever, malaise, generalized weakness as well as right upper abdominal pain without any nausea or emesis prompting eventual ED evaluation to be cautious. #1. Acute Sepsis (POA with qSOFA of 2 and SIRS of 4) secondary to Acute Complicated ESBL Catheter associated E. Coli UTI and Acute Bacteremia: Catheter changed upon presentation, Urine culture and blood culture with E. coli, continued on meropenem, WBC has been elevated however patient is on steroids for concurrent COPD exacerbation, per infectious disease meropenem antibiotic therapy completion 06/28/2024. Infectious disease amenable to discharge to home 06/28/2024. #2. Acute Hypoxic Respiratory Failure secondary to Acute COPD Exacerbation: Initially required BiPAP, improved, transition to nasal cannula eventually weaned to room air, CTA with bibasilar atelectasis more prominent in right lung base, diffuse eczematous changes worse in the upper lobes, continue ATC duonebs, PRN albuterol, IV methylprednisolone initially with now transition to prednisone therapy, HOB, IS parameters, respiratory panel negative. Treated as noted above with meropenem, as noted above antibiotic completion 06/28/2024 per ID direction. Will plan as noted transition to prednisone burst therapy given clinical improvement at discharge. #3. Acute NSTEMI, suspected type II given presentation #1, #2: 06/23/2024 troponin initial 204 with repeat 742. 06/23/24 initial EKG with EKG with nonspecific ST changes with sinus tachycardia with no change from previous. 06/23/2024 echocardiogram with severe inferior, inferior septal and anterior septal hypokinesis, LVEF 40%, mild MVI, mild TVI, RVSP 46 mmHg, aortic sclerosis with no stenosis. Magnesium most recently 2.1 06/21/2024. Will maintain on a monitored bed, EKGs as needed. Continue medical management w/ asa, plavix, BB, statin per Cardiology direction. Cardiology consulted, evaluated patient and per discussion we will plan follow-up in the office in 2 weeks with reassessment following noted medication additions and plan for outpatient cardiac catheterization. Also, discussed with patient given these new medications his diuretic therapy was held and transient lasix inpatient used but stopped per Cardiology with possible future low-dose diuretic use PRN but this per cardiology. #4. Acute Hyponatremia, Suspected secondary to Diuretic: Admission Na 124, chlorthalidone held, judiciously hydrated however given presentation patient initiated on Lasix therapy per cardiology but per discussion 06/27/[address] Rojas will d/c and may use in the future PRN if needed. Sodium level improving, 06/27/2024 sodium 135-> 06/28/24 Na 136, resolved. #5. Diabetes mellitus type II, uncontrolled: Hold oral home regimen, hemoglobin A1c significantly elevated 10%, placed initially on glargine 10 units nightly, increase to 15 twice daily in the setting of steroid usage, ADA diet, accu checks w/ ISS. #6. BPH with obstructive uropathy: We will continue patient on Flomax regimen, chronic Briggs in place changed upon presentation given acute presentation as noted #1. #7. Hypertension: Will continue cardiology initiated Coreg as well as Lasix regimen however per discussion with cardiology at discharge will d/c and may in future use potentially PRN, chlorthalidone had been discontinued as noted, PRN hydralazine. At discharge patient will be sent with insulin sliding scale and prescription for glucometer, strips and lancets with recommended continuation of BS checks especially with completion of steroid therapy to make sure there is not a need to decrease the insulin therapy. Encouraged patient to closely work with your primary care physician to appropriately treat and care for your diabetes. #8. Hyperlipidemia: Maintained on statin therapy. #9. Allergic rhinitis: We will continue patient home fluticasone regimen. #10. GERD: The patient on PPI. #11. DVT prophylaxis: Lovenox. #12. CODE STATUS: Full Code. Charges/Coding Visit Charges Inpatient E&M: 85949 Subs Hosp L2
[2024-06-28 07:46] LABS: ALB/GLOB Ratio 0.6 RATIO (0.9-2.4); AST(SGOT) 43 U/L (15-37); Alanine Aminotransfer ALT/SGPT 185 U/L (16-61); Albumin, Serum 2.4 g/dL (3.2-5.0); Alkaline Phosphatase 171 U/L (45-117); Anion Gap 5 (5-15); BUN 24 mg/dL (7-18); BUN/Creat Ratio 23.5 RATIO (10-20); Calcium,Total 9.4 mg/dL (8.5-10.1); Chloride 104 mmol/L (98-107); Creatinine, Serum 1.02 mg/dL (0.70-1.30); EST Glomerular Filtration Rate 76 mL/min (>60); Est Glom Filt Rate - Afr Amer 92 mL/min (>60); Estimated Creatinine Clearance 74.07 ml/min; Globulin 3.8 g/dL (2.2-4.2); Glucose 188 mg/dL (74-106); Potassium 4.6 mmol/L (3.5-5.1); Protein, Total 6.2 g/dL (6.4-8.2); Sodium Level 136 mmol/L (136-145)
[2024-06-28] MEDS: Multivitamins,Therapeutic Tablet 1 TABLET PO (08:00)
[2024-06-28] MEDS: Potassium Chloride Oral Tablet 20 MEQ 40 MEQ PO (08:01)
[2024-06-28] MEDS: Aspirin 81 MG TAB.CHEW PO (08:01)
[2024-06-28] MEDS: Atorvastatin Calcium 40 MG Tablet PO (08:02)
[2024-06-28] MEDS: Carvedilol 3.125 MG TABLET PO (08:02)
[2024-06-28] MEDS: predniSONE 20 MG Tablet 40 MG PO (08:02)
[2024-06-28 08:40] LABS: Pathologist Review Reviewed
[2024-06-28 09:48] LABS: Eosinophil 2 % (0-5); Lymphocyte 18 % (19-41); Monocyte 1 % (0-10); Myelocyte 1 % (0-0); Neutrophil-Segmented 78 % (47-70); Total Cells Counted 100 (MANUAL DIFF)
[2024-06-28 09:49] LABS: Absolute Neutrophil Count 14.1 X10^3/uL (2.0-7.7); Platelet Estimate ADEQUATE (ADEQ); Red Cell Morphology NORM C+C NORMAL (NORM C&C)
[2024-06-28 11:00] VITALS: BP 104/61; PULSE 62; RESP 18; TEMP 36.3; O2SAT 97
[2024-06-28 11:05] VITALS: PULSE 68; RESP 16
--- NOTE | 2024-06-28 11:11 | PCM.PN.CARD ---
Subjective Subjective No significant cardiac complaints at this time. Denies any chest pain or shortness of breath Objective Data Vital Signs: Vital Signs Temp Pulse Resp BP Pulse Ox O2 Del Method O2 Flow Rate 98.1 F 56 L 17 129/70 H 97 Room Air 2 06/28/24 05:00 06/28/24 05:00 06/28/24 05:00 06/28/24 05:00 06/28/24 05:00 06/28/24 09:11 06/24/24 09:00 FiO2 35 06/23/24 07:09 Oxygen Flow Rate (L/min) [ 2 AMBULATING with Oxygen #1] Oxygen Flow Rate (L/min) [At 2 REST with Oxygen] Oxygen Flow Rate (L/min) 2 Oxygen Delivery Method Room Air Weight: 205 lb 4.006 oz Body Mass Index (BMI) 28.6 Intake & Output: Intake and Output for Last 24 Hours 06/26/24 06/27/24 06/28/24 23:59 23:59 23:59 Intake Total 1860 / 1860 710 / 830 720 / 720 Output Total 4900 / 4900 3950 / 4350 1350 / 1350 Balance -3040 / -3040 -3240 / -3520 -630 / -630 Lab / Micro Data 06/28/24 05:59 06/28/24 05:59 Labs: Laboratory Results - last 24 hr 06/27/24 05:59: Diff Path Review Reviewed 06/27/24 11:19: POC Glucose 283 H 06/27/24 17:09: POC Glucose 309 H 06/27/24 20:53: POC Glucose 358 H 06/28/24 05:59: WBC 18.1 H, RBC 4.43 L, Hgb 14.4, Hct 43.0, MCV 97.1 H, MCH 32.5 H, MCHC 33.5, RDW Std Deviation 54.6 H, RDW Coeff of Tarik 15.2 H, Plt Count 448, MPV 9.7, Neut % (Auto) Not Reportable, Absolute Neuts (auto) 14.1 H, Absolute Lymphs (auto) 3.20, Total Counted 100, Neutrophils % (Manual) 78 H, Lymphocytes % (Manual) 18 L, Monocytes % (Manual) 1, Eosinophils % (Manual) 2, Myelocytes % 1 H, Diff Path Review May foll, Platelet Estimate ADEQUATE, RBC Morphology NORM C+C, Sodium 136, Potassium 4.6, Chloride 104, Carbon Dioxide 27.0, Anion Gap 5, BUN 24 H, Creatinine 1.02, Estim Creat Clear Calc 74.07, Est GFR (MDRD) Af Amer 92, Est GFR (MDRD) Non-Af 76, BUN/Creatinine Ratio 23.5 H, Glucose 188 H, Calcium 9.4, Total Bilirubin 0.50, AST 43 H, ALT 185 H, Alkaline Phosphatase 171 H, Total Protein 6.2 L, Albumin 2.4 L, Globulin 3.8, Albumin/Globulin Ratio 0.6 L 06/28/24 06:16: POC Glucose 163 H Rhythm Strip Rhythm Strip: Sinus Rhythm Rate: 79 Ectopy: PVC(s) and PAC(s) Cardiology Labs/Tests 06/28/24 05:59: WBC 18.1 H, RBC 4.43 L, Hgb 14.4, Hct 43.0, MCV 97.1 H, MCH 32.5 H, MCHC 33.5, Plt Count 448, MPV 9.7, Neut % (Auto) Not Reportable, Absolute Neuts (auto) 14.1 H, Total Counted 100, Neutrophils % (Manual) 78 H, Lymphocytes % (Manual) 18 L, Monocytes % (Manual) 1, Eosinophils % (Manual) 2, Myelocytes % 1 H, Sodium 136, Potassium 4.6, Chloride 104, Carbon Dioxide 27.0, Anion Gap 5, BUN 24 H, Creatinine 1.02, Est GFR (MDRD) Af Amer 92, Est GFR (MDRD) Non-Af 76, BUN/Creatinine Ratio 23.5 H, Glucose 188 H, Calcium 9.4, Total Bilirubin 0.50 Rhythm: EKG: ECHO: Stress Test: Cardiac Cath: PCI: CT Surgery: Holter monitor: EPS: PPM: CXR: Chest CT Scan: Physical Exam Const alert HEENT normocephalic Eyes no scleral icterus Resp normal respiratory effort Extremity no pedal edema Assessment & Plan Assessment/Plan (1) Elevated troponin: PLAN: This could be type II secondary to patient's sepsis on presentation. He does have low EF with regional wall motion abnormalities on echo. Currently he does not have any cardiac complaints. Continue medical treatment and follow-up with cardiology as an outpatient. At the time a determination could be made whether patient would benefit from a stress test to look for inducible ischemia or coronary angiography or continued medical treatment based on clinical situation at that time. (2) Left ventricular systolic dysfunction (LVSD): Charges/Coding Visit Charges Inpatient E&M: 84379 Subs Hosp L2
[2024-06-28] MEDS: Insulin Glargine-YFGN 100 UNIT/ML Pen 15 UNIT SC (11:16)
[2024-06-28] MEDS: amLODIPine 5 MG Tablet PO (11:17)
[2024-06-28] MEDS: Clopidogrel Bisulfate 75 MG Tablet PO (11:17)
[2024-06-28] MEDS: Nystatin Powder 15gm Bottle 1 APPLIC TOPICAL (11:17)
[2024-06-28] MEDS: Lisinopril 2.5 MG Tablet PO (11:18)
[2024-06-28] MEDS: Pantoprazole Sodium 20 MG Tablet PO (11:18)
[2024-06-28] MEDS: Fluticasone 0.05% 1 SPRAY NASAL.SRY NASAL (11:18)
[2024-06-28 11:49] LABS: Bedside Glucose 337 mg/dL (74-106)
[2024-06-28 11:53] LABS: Pathologist Review Reviewed
--- NOTE | 2024-06-28 11:53 | DS.PCM_ITS ---
Providers Date of Admission: 06/20/24 Date of Discharge: 06/28/24 Primary Care Physician: [facility] Consultations 06/20/24 16:57 Consult: Infectious Disease Routine Consulting Provider: Mikael Grant Reason for Consult: Complicated UTI EMERGENT Consult: No Notified: Yes Date Notified: 06/20/24 Time Notified: 16:27 Method of Notification: Text 06/23/24 09:35 Consult: Cardiology Routine Consulting Provider: Rajiv Rueda Reason for Consult: NSTEMI EMERGENT Consult: No Notified: Yes Date Notified: 06/23/24 Time Notified: 09:37 Method of Notification: Text Reason For Visit: UTI Diagnosis Discharge Diagnosis (1) Elevated troponin: Status: Acute Code(s): R79.89 - Other specified abnormal findings of blood chemistry (2) Left ventricular systolic dysfunction (LVSD): Status: Acute Code(s): I51.9 - Heart disease, unspecified Plan: DISCHARGE DIAGNOSES: #1. Acute Sepsis (POA with qSOFA of 2 and SIRS of 4) secondary to Acute Complicated ESBL Catheter associated E. Coli UTI and Acute Bacteremia #2. Acute Hypoxic Respiratory Failure secondary to Acute COPD Exacerbation #3. Acute NSTEMI, suspected type II given presentation #1, #2 with severe inferior, inferior septal and anterior septal hypokinesis with mildly reduced LVEF 40% #4. Acute Hyponatremia, Suspected secondary to Diuretic #5. Diabetes mellitus type II, uncontrolled #6. BPH with obstructive uropathy w/ chronic intermittent aguilera catheter needs following with [facility] #7. Hypertension #8. Hyperlipidemia #9. Allergic rhinitis #10. GERD #11. CODE STATUS: Full Code. Medications at Discharge Home Medications amlodipine 10 mg tablet 10 mg PO DAILY HTN 12/23/21 melatonin 3 mg tablet 3 mg PO QHS sleep aid 12/23/21 multivitamin 1 tab PO DAILY multivitamin 12/23/21 tamsulosin 0.4 mg capsule 0.4 mg PO QHS urinary retention 12/23/21 guaifenesin 200 mg tablet 200 mg PO Q4H PRN Cough 02/21/22 albuterol sulfate 90 mcg/actuation aerosol inhaler (Ventolin HFA) 1 inh inhalation BID COPD 03/24/22 fluticasone propionate 50 mcg/actuation nasal spray,suspension 1 spray intranasal DAILY nose spray 04/29/22 pantoprazole 20 mg tablet,delayed release 20 mg PO DAILY GERD 04/29/22 atorvastatin 40 mg PO DAILY CHOLESTEROL 10/13/22 glipizide 10 mg tablet 10 mg PO BID Diabetes 04/29/23 potassium chloride 20 mEq tablet,extended release(part/cryst) 20 meq PO BID potassium #6 tabs 06/16/23 aspirin 81 mg capsule 81 mg PO DAILY HEART 05/05/24 primidone 50 mg tablet (Mysoline) 50 mg PO QHS primidone 05/05/24 blood sugar diagnostic (Accu-Chek Guide test strips) #100 ea 06/28/24 blood-glucose meter (Accu-Chek Guide Glucose Meter) #1 ea 06/28/24 carvedilol 3.125 mg tablet 3.125 mg PO BID 30 days #60 tabs 06/28/24 clopidogrel 75 mg tablet 75 mg PO DAILY 30 days #30 tabs 06/28/24 insulin glargine-yfgn 100 unit/mL (3 mL) subcutaneous pen 15 unit (0.15 mL) subcut BID 30 days #9 mL 06/28/24 insulin lispro 100 unit/mL subcutaneous pen (Humalog KwikPen (U-100) Insulin) See Protocol subcut ACHS 30 days #1 pen 06/28/24 ipratropium 0.5 mg-albuterol 3 mg (2.5 mg base)/3 mL nebulization soln 3 ml inhalation [id number] COPD with exacerbation 14 days #1 mL 06/28/24 lancets #200 ea 06/28/24 lisinopril 2.5 mg tablet 2.5 mg PO DAILY 30 days #30 tabs 06/28/24 nystatin 100,000 unit/gram topical powder (Nyamyc) 1 applic topical BID 14 days #1 BOTTLE 06/28/24 prednisone 20 mg tablet 40 mg (2 x 20 mg) PO BREAKFAST 5 days #10 tabs 06/28/24 Hospital Course Operations None Procedures 2-D Echocardiogram and EKG Summary of Care Provided Minutes Spent on Discharge: 35 Hospital Course: The patient is a 73 y/o M w/ PMHx: BPH, Anxiety and Depression, HTN, HLD, COPD, Former tobacco use, GERD, Diabetes mellitus type II who presented to the [facility] ED on 06/20/24 with history of fever, malaise, generalized weakness as well as right upper abdominal pain without any nausea or emesis prompting eventual ED evaluation to be cautious. Patient admitted and treated for Acute Sepsis (POA with qSOFA of 2 and SIRS of 4) secondary to Acute Complicated ESBL Catheter associated E. Coli UTI and Acute Bacteremia w/ catheter changed upon presentation, Urine culture and blood culture with E. coli, treated with IV meropenem, WBC elevated during course but patient also treated for steroids for concurrent COPD exacerbation, per infectious disease meropenem antibiotic therapy completion 06/28/2024. Patient concurrently with Acute Hypoxic Respiratory Failure secondary to Acute COPD Exacerbation initially required BiPAP, improved, transitioned to nasal cannula eventually weaned to room air, CTA with bibasilar atelectasis more prominent in right lung base, diffuse eczematous changes worse in the upper lobes, continue ATC duonebs, PRN albuterol, IV methylprednisolone initially with now transition to prednisone therapy, HOB, IS parameters, respiratory panel negative. Treated as noted above with meropenem, as noted above antibiotic completion 06/28/2024 per ID direction. At dischage patient transitioned to prednisone burst therapy. 06/23/2024 troponin initial 204 with repeat 742. 06/23/24 initial EKG with EKG with nonspecific ST changes with sinus tachycardia with no change from previous. 06/23/2024 echocardiogram with severe inferior, inferior septal and anterior septal hypokinesis, LVEF 40%, mild MVI, mild TVI, RVSP 46 mmHg, aortic sclerosis with no stenosis. Magnesium most recently 2.1 06/21/2024. Will maintain on a monitored bed, EKGs as needed. Continue medical management w/ asa, plavix, BB, statin per Cardiology direction. Cardiology consulted, evaluated patient and per discussion we will plan follow-up in the office in 2 weeks with reassessment following noted medication additions and plan for outpatient cardiac catheterization. Also, discussed with patient given these new medications his diuretic therapy was held and transient lasix inpatient used but stopped per Cardiology with possible future low-dose diuretic use PRN but this per cardiology. Admission Na 124, chlorthalidone held, judiciously hydrated however given presentation patient initiated on Lasix therapy per cardiology but per discussion 06/27/[address] Rojas will d/c and may use in the future PRN if needed. Sodium level improving, 06/27/2024 sodium 135-> 06/28/24 Na 136, resolved. Patient with uncontrolled Diabetes mellitus type II with hyperglycemia. During admission held oral home regimen, hemoglobin A1c significantly elevated 10%, placed initially on glargine 10 units nightly, increase to 15 twice daily in the setting of steroid usage, ADA diet, accu checks w/ ISS. At discharge continued insulin regimen with recommended close BS monitering especially with steroid completion for regimen change needs with ongoing close PCP follow-up. Patient discharged to home in improved condition with follow-[facility]. Weight / BMI Weight Weight: 205 lb 4.006 oz Body Mass Index (BMI) 28.6 ABG / Lab / Microbiology Data 06/28/24 05:59 06/28/24 05:59 Laboratory: Laboratory Results - last 24 hr 06/27/24 05:59: Diff Path Review Reviewed 06/27/24 17:09: POC Glucose 309 H 06/27/24 20:53: POC Glucose 358 H 06/28/24 05:59: WBC 18.1 H, RBC 4.43 L, Hgb 14.4, Hct 43.0, MCV 97.1 H, MCH 32.5 H, MCHC 33.5, RDW Std Deviation 54.6 H, RDW Coeff of Tarik 15.2 H, Plt Count 448, MPV 9.7, Neut % (Auto) Not Reportable, Absolute Neuts (auto) 14.1 H, Absolute Lymphs (auto) 3.20, Total Counted 100, Neutrophils % (Manual) 78 H, Lymphocytes % (Manual) 18 L, Monocytes % (Manual) 1, Eosinophils % (Manual) 2, Myelocytes % 1 H, Diff Path Review May foll, Platelet Estimate ADEQUATE, RBC Morphology NORM C+C, Sodium 136, Potassium 4.6, Chloride 104, Carbon Dioxide 27.0, Anion Gap 5, BUN 24 H, Creatinine 1.02, Estim Creat Clear Calc 74.07, Est GFR (MDRD) Af Amer 92, Est GFR (MDRD) Non-Af 76, BUN/Creatinine Ratio 23.5 H, Glucose 188 H, Calcium 9.4, Total Bilirubin 0.50, AST 43 H, ALT 185 H, Alkaline Phosphatase 171 H, Total Protein 6.2 L, Albumin 2.4 L, Globulin 3.8, Albumin/Globulin Ratio 0.6 L 06/28/24 06:16: POC Glucose 163 H 06/28/24 11:15: POC Glucose 337 H Microbiology: Microbiology 06/20/24 15:25 Blood Culture (Wb) - Anticubital Right Blood Culture - Final ESBL Escherichia coli 06/20/24 14:40 Urine, Midstream Urine Culture - Final ESBL Escherichia coli 06/23/24 04:43 Mucosa - Nasopharyngeal Respiratory Panel (PCR) - Final 06/23/24 04:43 Mucosa - Nasopharyngeal SARS-CoV-2, Influenza & RSV (PCR) - Final D/C Instructions Discharge Diet: 1800 Calorie Control Diet Weight Bearing Status: Weight bearing as tolerated Call your doctor if you observe: Fever of 101 or Higher, Inability to urinate, Shortness of breath, Chest pain, Increased palpitations (irregular heartbeat), Calf discomfort and Uncontrolled pain Additional Dressing/Incision Instructions: Please continue routine aguilera care and change per your outpatient schedule. The aguilera was changed upon your current hospitalization. Meaningful Use Info Meaningful Use Meaningful Use Diagnoses (Choose all that apply): AMI AMI/Post PCI/Angioplasty Aspirin given w/in 24hrs of arrival?: Yes ASA at discharge?: Yes Antiplatelet Therapy at Discharge:: Yes Statins at discharge?: Yes Rene/ARB at discharge?: Yes Beta [place] at discharge?: Yes Done w/ Acute AL measure.: Yes Documented LVEF (%): 40 Ischemic Stroke Statin Dosing Therapy Reference: STATIN DOSE THERAPY REFERENCE: * Patients > 75 years receive moderate or high dose statin therapy. * Patients 75 years or YOUNGER should receive HIGH intensity statin dose unless contraindicated. You will be required to document reason for non-treatment if statin daily dose does not meet guidelines. HIGH DOSE STATIN THERAPY DAILY Atorvastatin > than or = to 40 mg Rosuvastatin > than or = to 20 mg Amlodipine + Atorvastatin > than or = to 2.5/40 mg Ezetimibe + Simvastatin 10/80 mg Simvastatin 80mg Discharge Plan Admission Admit Date/Time: 06/20/24 16:18 Primary Reason for Your Visit: Sepsis, Complicated ESBL CAUTI, Respiratory Failure, COPD Exac, NSTEMI Attending Provider: Triny Trinidad Primary Care Provider: [facility],[place] Consulting Providers: Carina Araya; Allen Caro; Rajiv Rueda; Mikael Grant; Karlos Dixon Instructions Patient Instructions: Catheter-Linked Urinary Tract ..., How to Check Your Blood Sugar, Discharge Instructions: COPD, Heart Attack Dc, ED COPD Flare Additional Instructions / Restrictions: ADDITIONAL INFORMATION/FOLLOW-UP CARE: #1. Acute Sepsis (POA with qSOFA of 2 and SIRS of 4) secondary to Acute Complicated ESBL Catheter associated E. Coli UTI and Acute Bacteremia: -- Your catheter was changed upon presentation and your urine culture resulted with ESBL E. coli sensitive to ertapenem for which were treated by infectious disease in house with last treatment 06/28/2024 prior to discharge. --[facility] to continue to be evaluated for chronic aguilera needs. #2. Acute Hypoxic Respiratory Failure secondary to Acute COPD Exacerbation: --CTA with bibasilar atelectasis more prominent in right lung base, diffuse eczematous changes worse in the upper lobes. --Please continue every 6 hour DuoNeb therapies for the next 14 days and use your albuterol inhaler as needed. --Given your clinical improvement we have opted especially given the elevated blood sugar to continue a prednisone 40 mg burst therapy with 5 additional days only. If you feel coming off of this that you have shortness of breath or wheezing please immediately talk with your primary care physician to potentially extend into a taper. #3. Acute NSTEMI, suspected type II given presentation #1, #2: --During your presentation your cardiac enzymes were elevated felt secondary to #1 and #2 is noted. --Work-up included: -- troponin initial 204 with repeat 742. --06/23/24 initial EKG with EKG with nonspecific ST changes with sinus tachycardia with no change from previous. --06/23/2024 echocardiogram with severe inferior, inferior septal and anterior septal hypokinesis, LVEF 40%, mild MVI, mild TVI, RVSP 46 mmHg, aortic sclerosis with no stenosis. --You were evaluated by cardiology and maintained on aspirin, Plavix and low- dose beta-camden both added, continued statin therapy in addition to a low-dose lisinopril. Given these new medications no diuretic therapy was held. You may need future low-dose diuretic including Lasix potentially but this per cardiology prior to discharge will be rediscussed and evaluated outpatient. --Please follow-up with cardiology as noted in 2 weeks with plan for reevaluation and plan to arrange future cardiac catheterization. #4. Acute Hyponatremia, Suspected secondary to Diuretic: --Admission Na 124, chlorthalidone held and no restarted at discharge. We recommend [id number] basic metabolic panel at follow-up with your primary care physician. Cardiology used lasix short term while inpatient but plan to reassess in the office for possible as needed low dose lasix in the future but held at discharge and on 06/27/[address] Rojas. #5. Diabetes mellitus type II, uncontrolled: --During admission your blood sugars were notably elevated. You hemoglobin A1c significantly elevated 10%. --You were started on initially on glargine 10 units nightly, increased to 15 twice daily in the setting of steroid usage which has been continued upon your discharge. In addition to this you have been also sent home with insulin sliding scale and prescription for glucometer, strips and lancets. We recommend continue to check your blood sugar especially when you go off of your steroid therapy to make sure that we do not need to decrease the insulin therapy. Please continue closely work with your primary care physician to appropriately treat and care for your diabetes. We strongly encourage continued lifestyle and diet changes to also achieve reduced hemoglobin A1c level. Discharge Orders/Prescriptions Prescriptions: New prednisone 20 mg Tablet 40 mg PO BREAKFAST 5 Days Qty: 10 0RF Rx Instructions: Complete additional 5 day burst steroid therapy for COPD Exacerbation clopidogrel 75 mg Tablet 75 mg PO DAILY 30 Days Qty: 30 0RF carvedilol 3.125 mg Tablet 3.125 mg PO BID 30 Days Qty: 60 0RF nystatin [Nyamyc] 100,000 unit/gram Powder 1 applic topical BID 14 Days Qty: 1 0RF Protocol: *Topical Application Instructions APPLICATION INSTRUCTIONS: axillary Rx Instructions: Cleanse affected skin with soap/water, pat dry and then apply powder. insulin glargine-yfgn 100 unit/mL (3 mL) Insulin Pen 15 unit subcut BID 30 Days Qty: 9 0RF Rx Instructions: Please continue insulin as rx; however, when you finish your steroid therapy for COPD exacerbation, the regimen may need decreased. Please monitor your blood sugars and closely follow with your PCP. insulin lispro [Humalog KwikPen Insulin] 100 unit/mL Insulin Pen See Protocol subcut ACHS 30 Days Qty: 1 0RF Protocol: 3. Sliding Scale Insulin Med Dosing Condition: 150-189 mg/dl = 1 unit Condition: 190-229 mg/dl = 2 units Condition: 230-269 mg/dl = 3 units Condition: 270-309 mg/dl = 4 units Condition: 310-349 mg/dl = 5 units Condition: 350-399 mg/dl = 6 units Condition: 400-449 mg/dl = 7 units Condition: Greater than 449 call physician Protocol Text: Suggested for: - Patients on Total Daily Insulin Dose of 37-55 units - Obese, infected, or steroid patients MEDIUM DOSING ALGORITHIM Rx Instructions: May substitute pen for generic option and may transition amount to correspond to 30 day option. Sliding Scale Insulin Medium Dosin-189 BS=1 u, 190-229 BS=2 u, 230-269 BS=3 u, 270-309 BS=4 u, 310-349 BS=5 u, 350-399 BS=6 u, 400 BS= 7 u (DME) blood-glucose meter [Accu-Chek Guide Glucose Meter] Misc See Rx Instructions .Route Qty: 1 0RF Rx Instructions: As directed with ACHS checks for ISS and also PRN (DME) Accu-Chek Guide test strips Strip See Rx Instructions .Route Qty: 100 0RF Rx Instructions: As directed, may substitute test strips to match patient machine. Use ACHS and PRN. (DME) lancets Misc See Rx Instructions .Route Qty: 200 0RF Rx Instructions: As directed for obtaining ACHS and PRN accu checks. ipratropium-albuterol 0.5 mg-3 mg(2.5 mg base)/3 mL Solution For Nebulization 3 ml inhalation [id number] 14 Days Qty: 1 0RF lisinopril 2.5 mg Tablet 2.5 mg PO DAILY 30 Days Qty: 30 0RF Continued glipizide 10 mg tablet 10 mg PO BID multivitamin Tablet 1 tab PO DAILY melatonin 3 mg Tablet 3 mg PO QHS tamsulosin 0.4 mg Capsule 0.4 mg PO QHS amlodipine 10 mg Tablet 10 mg PO DAILY guaifenesin 200 mg Tablet 200 mg PO Q4H PRN (Reason: Cough) albuterol sulfate [Ventolin HFA] 90 mcg/actuation HFA aerosol inhaler 1 inh inhalation BID pantoprazole 20 mg Tablet,Delayed Release (Dr/Ec) 20 mg PO DAILY fluticasone propionate 50 mcg/actuation [place],Suspension 1 spray INTRANASAL DAILY Rx Instructions: administer into each nostril atorvastatin 40 mg PO DAILY primidone [Mysoline] 50 mg tablet 50 mg PO QHS aspirin 81 mg capsule 81 mg PO DAILY potassium chloride 20 mEq tablet,ER particles/crystals 20 meq PO BID Qty: 6 0RF Discontinued chlorthalidone 25 mg tablet 25 mg PO DAILY Referrals / Follow Up: Rajiv Rueda MD [Med Staff - Active Staff] - 07/14/24 1:30 am (Follow-up in 2 weeks to review admission, have follow-up BP check, discuss future possible catheterization.) [facility] [[facility] Provider] - (Please follow-up with your primary care within 3-5 days to review admission. Please have follow-up basic metabolic panel to assure continued electrolyte improvement/stability. Please additionally follow-up with your [facility]ist to discuss future aguilera catheter discontinuation potential. Please ideally follow in their office in 2 weeks.) Disposition Disposition (needs filled in before D/C Order can be placed): Home, Self Care Charges/Coding Visit Charges Inpatient E&M: 12687 Disch Hosp >30min
[2024-06-28] MEDS: 0.9% Saline Lock 10 ML Syringe IV (11:56)
[2024-06-28] MEDS: Ertapenem Sod 1 GM in 0.9% Normal Saline (50mL MB+) 50 ML IV (11:56)
--- NOTE | 2024-06-28 12:16 | CASEMGMT ---
Patient has order for discharge. RN CM in to discuss needs at discharge. Patient states he has nebulizer and glucometer with supplies at home. Patient does not need increase in home oxygen at discharge. Patient states he has script for outpatient therapy and will use if he needs it. Patient denied further needs or help at discharge. Patient had no further questions or concerns.
--- NOTE | 2024-06-28 15:20 | PHA.DC.MR.R ---
Pharmacy [place] Med Reconciliation Pharmacy Service has performed discharge medication reconciliation for this patient. Medication education papers prepared, patient discharged before I was able to spiritual counselor. The patient's discharge medication list was reviewed for discrepancies and discrepancies were resolved. Medications at Discharge Home Medications amlodipine 10 mg tablet 10 mg PO DAILY HTN 12/23/21 melatonin 3 mg tablet 3 mg PO QHS sleep aid 12/23/21 multivitamin 1 tab PO DAILY multivitamin 12/23/21 tamsulosin 0.4 mg capsule 0.4 mg PO QHS urinary retention 12/23/21 guaifenesin 200 mg tablet 200 mg PO Q4H PRN Cough 02/21/22 albuterol sulfate 90 mcg/actuation aerosol inhaler (Ventolin HFA) 1 inh inhalation BID COPD 03/24/22 fluticasone propionate 50 mcg/actuation nasal spray,suspension 1 spray intranasal DAILY nose spray 04/29/22 pantoprazole 20 mg tablet,delayed release 20 mg PO DAILY GERD 04/29/22 atorvastatin 40 mg PO DAILY CHOLESTEROL 10/13/22 glipizide 10 mg tablet 10 mg PO BID Diabetes 04/29/23 potassium chloride 20 mEq tablet,extended release(part/cryst) 20 meq PO BID potassium #6 tabs 06/16/23 aspirin 81 mg capsule 81 mg PO DAILY HEART 05/05/24 primidone 50 mg tablet (Mysoline) 50 mg PO QHS primidone 05/05/24 blood sugar diagnostic (Accu-Chek Guide test strips) #100 ea 06/28/24 blood-glucose meter (Accu-Chek Guide Glucose Meter) #1 ea 06/28/24 carvedilol 3.125 mg tablet 3.125 mg PO BID 30 days #60 tabs 06/28/24 clopidogrel 75 mg tablet 75 mg PO DAILY 30 days #30 tabs 06/28/24 insulin glargine-yfgn 100 unit/mL (3 mL) subcutaneous pen 15 unit (0.15 mL) subcut BID 30 days #9 mL 06/28/24 insulin lispro 100 unit/mL subcutaneous pen (Humalog KwikPen (U-100) Insulin) See Protocol subcut ACHS 30 days #1 pen 06/28/24 ipratropium 0.5 mg-albuterol 3 mg (2.5 mg base)/3 mL nebulization soln 3 ml inhalation [id number] COPD with exacerbation 14 days #1 mL 06/28/24 lancets #200 ea 06/28/24 lisinopril 2.5 mg tablet 2.5 mg PO DAILY 30 days #30 tabs 06/28/24 nystatin 100,000 unit/gram topical powder ([facility]) 1 applic topical BID 14 days #1 BOTTLE 06/28/24 prednisone 20 mg tablet 40 mg (2 x 20 mg) PO BREAKFAST 5 days #10 tabs 06/28/24
== END 2024-06-28 14:41 | disposition home or self-care (01) | DRG 871 ==
LOC: ED 16:16 → MS3 16:25 → ICU 06-23 05:41 → PCU 06-24 10:42
PROVIDERS: Family Medicine; Internal Medicine; Admitting Provider Internal Medicine; Emergency Provider Emergency Medicine; Visit Provider Family Medicine
DX: A41.51 Sepsis due to Escherichia coli [E. coli] (principal); J96.01 Acute respiratory failure with hypoxia; I21.A1 Myocardial infarction type 2; J44.1 Chronic obstructive pulmonary disease with (acute) exacerbation; T83.511A Infection and inflammatory reaction due to indwelling urethral catheter, initial encounter; E87.1 Hypo-osmolality and hyponatremia; N39.0 Urinary tract infection, site not specified; I11.0 Hypertensive heart disease with heart failure; I50.9 Heart failure, unspecified; E11.65 Type 2 diabetes mellitus with hyperglycemia; E78.5 Hyperlipidemia, unspecified; K21.9 Gastro-esophageal reflux disease without esophagitis; E87.6 Hypokalemia; J43.9 Emphysema, unspecified; N13.9 Obstructive and reflux uropathy, unspecified; N40.1 Benign prostatic hyperplasia with lower urinary tract symptoms; E66.3 Overweight; Z87.891 Personal history of nicotine dependence; Z79.82 Long term (current) use of aspirin; Z79.84 Long term (current) use of oral hypoglycemic drugs; Z79.02 Long term (current) use of antithrombotics/antiplatelets; Z79.899 Other long term (current) drug therapy; Z68.27 Body mass index [BMI] 27.0-27.9, adult; X58.XXXA Exposure to other specified factors, initial encounter
CPT/HCPCS: 36415; 36600; 71045; 71275; 74176; 76705; 80048; 80053; 80076; 81001; 82803; 82962; 83036; 83605; 83735; 84100; 84484; 85025; 85610; 85730; 87040; 87077; 87086; 87088; 87186; 87631; 87633; 93005; 93306; 94002; 94640; 94668; 94762; 97110; 97116; 97162; 97166; 97530; 97535; 97802; 99285; J2185; J7030; J7120; Q9957; Q9967; A4216; C8929; J1940; J2405

== ENCOUNTER 2024-07-04 10:40 | Emergency (ER) | payer MEDICARE, SELFPAY ==
[2022-04-22 08:14] VITALS: BMI 30.6
[2024-07-04 10:42] VITALS: BP 135/85; PULSE 54; RESP 20; TEMP 36.5; O2SAT 98; BMI 26.7
--- NOTE | 2024-07-04 11:25 | RAD_ITS ---
STUDY: X-RAY CHEST REASON FOR EXAM: Male, 73 years old. Vomiting possible aspiration TECHNIQUE: Single AP portable view of the chest. COMPARISON: Comparison is made with prior study June 23, 2024. FINDINGS: EKG electrodes are seen. There is hyperinflation of the lungs consistent with chronic obstructive lung disease (COPD). There is no demonstrated pleural abnormality. Normal size heart. Normal mediastinum and lisa. There is prominence of the pulmonary hilar arteries without peripheral pulmonary vascular congestion, suggesting pulmonary hypertension. There is atherosclerotic calcification of the aortic arch with tortuosity. Normal visualized thoracic spine. Normal visualized ribs, clavicles, and shoulders. There is no demonstrated abnormality of the visualized soft tissue structures of the upper abdomen. RAD/Chest 1 View (Portable) IMPRESSION: Hyperinflation. The lungs are clear. Electronically Signed: Anibal Jimenez MD at 12:39 EDT ,
--- NOTE | 2024-07-04 11:25 | CT_ITS ---
STUDY: CT BRAIN WITHOUT CONTRAST REASON FOR EXAM: Male, 73 years old. Altered mental status, acute RADIATION DOSAGE (If Supplied By Facility): CTDIvol = ( 44.99 ) mGy, DLP = ( 863.60 ) mGycm TECHNIQUE: Transaxial CT imaging of the brain was performed without administration of intravenous contrast material. Individualized dose optimization techniques were used for this CT. COMPARISON: Comparison is made with prior study dated September 01, 2019. FINDINGS: Normal soft tissue structures. Normal calvarium. There is mild cerebral atrophy with widening of the extra-axial spaces and ventricular dilatation. There are areas of decreased attenuation within the white matter tracts of the supratentorial brain, consistent with microvascular disease changes. Stable lacunar infarct in the left thalamus. Normal brainstem. Normal cerebellum. There is no intracranial hemorrhage. There are no findings of an acute ischemic infarction. Normal visualized paranasal sinuses. CT/Brain/Head without Contrast IMPRESSION: Chronic involutional changes of the brain. Stable lacunar infarct in the left thalamus. Electronically Signed: Anibal Jimenez MD at 12:38 EDT ,
--- NOTE | 2024-07-04 11:26 | EKG12_ITS ---
Test Reason : Blood Pressure : / mmHG Vent. Rate : 052 BPM Atrial Rate : 052 BPM P-R Int : 136 ms QRS Dur : 098 ms QT Int : 526 ms P-R-T Axes : 044 006 044 degrees QTc Int : 489 ms Sinus bradycardia Minimal voltage criteria for LVH, may be normal variant ( R in aVL ) Prolonged QT Abnormal ECG Confirmed by Delmar Vela ([id number]), videotape editor EMMA HERNANDEZ ([id number]) on 07/06/2024 8:17:07 AM Referred By: Confirmed By:Delmar Vela
[2024-07-04 11:43] VITALS: BP 114/83; PULSE 54; RESP 20; O2SAT 96
[2024-07-04 11:48] LABS: Absolute Lymphocyte Count 1.68 X10^3/uL (0.83-4.51); Absolute Neutrophil Count 13.1 X10^3/uL (2.0-7.7); Basophil# 0.04 X10^3/uL; Basophil% 0.2 % (0-1); Eosinophil# 0.09 X10^3/uL; Eosinophils% 0.6 % (0-5); Hematocrit 45.9 % (40-54); Lymphocyte # 1.68 X10^3/ul (0.83-4.51); Lymphocyte % 10.5 % (19-41); Mean Corp Hgb Conc 32.7 g/dL (32-36); Mean Corpuscular Hgb 31.8 pg (27.0-32.0); Mean Corpuscular Volume 97.5 fL (80-94); Mean Platelet Vol. 9.3 fl (6.2-12.0); Monocyte# 0.96 X10^3/uL; NRBC Flagged by Analyzer 0 % (0-5); Neutrophil # 13.12 X10^3/uL (2.7-7.7); Neutrophil % 81.8 % (47-70); Platelet Count 422 K/mm3 (150-450); RBC Distribution Width CV 14.6 % (11.6-14.6); RBC Distribution Width SD 52.5 fl (35.1-43.9); Red Blood Count 4.71 M/mm3 (4.6-6.2)
[2024-07-04 11:59] LABS: Bacteria 0 SEEN /hpf (None Seen); Mucous, Urine 0 SEEN /hpf (<or=2+); Squamous Epithelial Cells - UA 0 SEEN /hpf (0-5)
[2024-07-04 12:03] LABS: Bedside Glucose 90 mg/dL (74-106)
[2024-07-04 12:07] LABS: ALB/GLOB Ratio 0.8 RATIO (0.9-2.4); AST(SGOT) 33 U/L (15-37); Alanine Aminotransfer ALT/SGPT 123 U/L (16-61); Albumin, Serum 3.1 g/dL (3.2-5.0); Alkaline Phosphatase 151 U/L (45-117); Anion Gap 8 (5-15); BUN 16 mg/dL (7-18); BUN/Creat Ratio 13.6 RATIO (10-20); Calcium,Total 9.5 mg/dL (8.5-10.1); Chloride 99 mmol/L (98-107); Creatinine, Serum 1.18 mg/dL (0.70-1.30); EST Glomerular Filtration Rate 64 mL/min (>60); Est Glom Filt Rate - Afr Amer 77 mL/min (>60); Globulin 4.1 g/dL (2.2-4.2); Glucose 83 mg/dL (74-106); Potassium 3.5 mmol/L (3.5-5.1); Protein, Total 7.2 g/dL (6.4-8.2); Sodium Level 136 mmol/L (136-145)
[2024-07-04 12:08] LABS: Glucose, Dipstick 1000 mg/dl (Normal); Ketone-Dipstick Negative (Negative); Leukocyte Esterase-Dipstick 500 /ul (Negative); Nitrite-Dipstick Positive (Negative); Occult Blood-Urine 10 /ul (Negative); Protein-Dipstick 15 mg/dl (Negative); Specific Gravity, Urine 1.005 (1.002-1.030); Urine Bilirubin Dipstick Negative (Negative); Urine Urobilinogen Normal (Normal)
[2024-07-04 12:11] LABS: Color, Urine YELLOW (Yellow); Urine Clarity Sl Cldy (Clear)
[2024-07-04 12:16] VITALS: BP 116/78; PULSE 55; RESP 15; O2SAT 94
[2024-07-04 12:16] LABS: Red Blood Cells-Urine 0-5 SEEN /hpf (0-5); White Blood Cells 5-10 SEEN /hpf (0-5)
[2024-07-04 12:17] LABS: Lactic Acid 1.9 mmol/L (0.4-1.9)
[2024-07-04 13:05] LABS: Bedside Glucose 80 mg/dL (74-106)
[2024-07-04 13:16] VITALS: BP 90/67; PULSE 58; RESP 17; O2SAT 93
--- NOTE | 2024-07-04 14:08 | EDS_ITS ---
HPI History of Present Illness Chief Complaint: Hypoglycemia Detail of Chief Complaint: Altered mental status and blood sugar 70 Informant: spouse/S.O. 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 He has history of diabetes, hyperbilirubinemia, elevated liver enzymes, renal dysfunction, COPD, cancer of the prostate, tobacco dependency, hypertension, GERD who arrived by squad because of altered mental status. Blood sugar was 17. 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 When she came out her was on the route driver coin machines side which is unusual and he was unresponsive. Squad was called. Upon arrival patient is unaware of his surroundings and unable to answer questions. Prior similar symptoms: No Recent Illness/Hospitalization: No PFSH PFSH Medical History Leukocytosis Prostate disease Dietary restriction Lipoma of back Sebaceous cyst Aneurysm Anxiety Excessive bleeding Chronic cough History of edema History of stress test History of echocardiogram Degenerative joint disease of hand Hyperlipidemia Benign essential hypertension Wears hearing aid Wears glasses Wears dentures Depression Alcohol use Diabetes History of steroid therapy Arthritis Hepatitis Easy bruising Gastric reflux Shortness of breath on exertion On home oxygen therapy Leg cramps Former smoker Hypertension COPD (chronic obstructive pulmonary disease) Smoking greater than 40 pack years Home Medications ?Medication ?Instructions ?Recorded ?Last Taken ?Type amlodipine 10 mg tablet 10 mg PO DAILY HTN 12/23/21 06/19/24 History melatonin 3 mg tablet 3 mg PO QHS sleep aid 12/23/21 06/19/24 History multivitamin 1 tab PO DAILY multivitamin 12/23/21 06/19/24 History tamsulosin 0.4 mg capsule 0.4 mg PO QHS urinary retention 12/23/21 06/19/24 History guaifenesin 200 mg tablet 200 mg PO Q4H PRN Cough 02/21/22 Unknown History albuterol sulfate 90 mcg/actuation 1 inh inhalation BID COPD 03/24/22 07/01/23 History aerosol inhaler (Ventolin HFA) fluticasone propionate 50 1 spray intranasal DAILY nose spray 04/29/22 06/19/24 History mcg/actuation nasal spray,suspension pantoprazole 20 mg tablet,delayed 20 mg PO DAILY GERD 04/29/22 Unknown History release atorvastatin 40 mg PO DAILY CHOLESTEROL 10/13/22 Unknown History glipizide 10 mg tablet 10 mg PO BID Diabetes 04/29/23 06/19/24 History potassium chloride 20 mEq 20 meq PO BID potassium #6 tabs 06/16/23 Unknown Rx tablet,extended release(part/cryst) aspirin 81 mg capsule 81 mg PO DAILY HEART 05/05/24 Unknown History primidone 50 mg tablet (Mysoline) 50 mg PO QHS primidone 05/05/24 06/19/24 History blood sugar diagnostic (Accu-Chek #100 ea 06/28/24 Unknown Rx Guide test strips) blood-glucose meter (Accu-Chek #1 ea 06/28/24 Unknown Rx Guide Glucose Meter) carvedilol 3.125 mg tablet 3.125 mg PO BID 30 days #60 tabs 06/28/24 Unknown Rx clopidogrel 75 mg tablet 75 mg PO DAILY 30 days #30 tabs 06/28/24 Unknown Rx insulin glargine-yfgn 100 unit/mL 15 unit (0.15 mL) subcut BID 30 06/28/24 Unknown Rx (3 mL) subcutaneous pen days #9 mL insulin lispro 100 unit/mL See Protocol subcut ACHS 30 days 06/28/24 Unknown Rx subcutaneous pen (Humalog KwikPen #1 pen (U-100) Insulin) ipratropium 0.5 mg-albuterol 3 mg 3 ml inhalation [id number] COPD 06/28/24 Unknown Rx (2.5 mg base)/3 mL nebulization with exacerbation 14 days #1 mL soln lancets #200 ea 06/28/24 Unknown Rx lisinopril 2.5 mg tablet 2.5 mg PO DAILY 30 days #30 tabs 06/28/24 Unknown Rx nystatin 100,000 unit/gram topical 1 applic topical BID 14 days #1 06/28/24 Unkn own Rx powder ([facility]) BOTTLE prednisone 20 mg tablet 40 mg (2 x 20 mg) PO BREAKFAST 5 06/28/24 Unknown Rx days #10 tabs Allergy/AdvReac Type Severity Reaction Status Date / Time adhesive tape AdvReac Intermediate Rash Verified 07/04/24 10:42 gabapentin AdvReac Unknown PT UNSURE Verified 07/04/24 10:42 OF REACTION rosuvastatin AdvReac Unknown PT UNSURE Verified 07/04/24 10:42 OF REACTION hydroxyzine AdvReac NEEDS Verified 07/04/24 10:42 FOLLOW-UP Family History Father Cancer Heart disease Mother Heart disease Myocardial infarction Surgical History History of excision of mass History of cataract surgery History of esophagogastroduodenoscopy (EGD) Hx of colonoscopy History of hand surgery Hx of appendectomy H/O wrist surgery Social History household members: spouse Smoking Status: Former smoker quit date: 09/26/21 pack-years: 90 Tobacco: How many years used: 60 alcohol intake: former substance use type: does not use ROS ROS ED Review of Systems ROS Unobtainable: due to mental status EXAM Physical Exam Const Vital Signs: 07/04/24 10:42 07/04/24 11:43 07/04/24 11:45 Temperature 97.7 F L Temperature Source Temporal Pulse Rate 54 L 54 L Respiratory Rate 20 H 20 H Respiratory Effort Normal Respiratory Pattern Normal Blood Pressure 135/85 H 114/83 H Blood Pressure Mean 101 93 Pulse Ox 98 96 Oxygen Delivery Method Room Air Room Air 07/04/24 12:16 07/04/24 13:16 Temperature Temperature Source Pulse Rate 55 L 58 L Respiratory Rate 15 17 Respiratory Effort Respiratory Pattern Blood Pressure 116/78 90/67 Blood Pressure Mean 90 74 Pulse Ox 94 93 Oxygen Delivery Method Room Air Room Air Positive well nourished, well developed and unkempt General Appearance ED: unkempt, well developed, NAD and pallor; Negative for cyanotic or diaphoretic HEENT HEENT Narrative: Head is atraumatic normocephalic. Ears normal. Nares patent. Posterior pharynx is normal. Uvula is midline. Eyes PERRL and EOMs intact bilaterally General Eye ED: Negative for pale conjunctiva or scleral icterus Neck no lymphadenopathy, supple and no JVD Neck Narrative: There are no carotid bruits. Chest Wall inspection of chest normal and palpation of chest normal Resp normal respiratory effort and clear to auscultation bilaterally Cardio regular rhythm, S1 normal heart sound, S2 normal heart sound and no murmurs Rate: bradycardia GI normal to inspection, nondistended, normoactive bowel sounds, non-tender, non- distended and no masses; Negative for hepatosplenomegaly Palpation: soft Back/Spine no CVA tenderness Extremity normal to inspection General Extremety ED: Negative for edema or tenderness General Extremity: Negative for edema Neuro No oriented x3 and CN's II-XII intact bilaterally Sensorium / Orientation: orientation impaired; Negative for alert Psych Psych Narrative: Unable to assess Appearance: unkempt Skin no rashes or lesions noted, no wounds and skin turgor normal General Skin Exam: pallor; Negative for jaundice MDM MDM MDM Narrative Medical decision making narrative: This may represent a prolonged altered mental status due to hypoglycemia of unknown duration versus intracranial bleed versus stroke versus metabolic or infectious cause. CT, appropriate blood work was ordered as well as UA. History & Record Review Discussion w/independent historian: Significant other Lab Data Attestation: I reviewed the patient's lab results. Lab results narrative: White count is elevated. Patient's had previous elevated white counts. Differentials change from prior. Liver enzymes are unchanged from prior. UA reveals pyuria without bacteria. Glucose was assessed prior to BMP results and was 80. Would not expect this to be the cause of his altered mental status. Labs: Laboratory Results - last 24 hr 07/04/24 07/04/24 07/04/24 11:40 11:41 11:47 WBC 16.0 H RBC 4.71 Hgb 15.0 Hct 45.9 MCV 97.5 H MCH 31.8 MCHC 32.7 RDW Std Deviation 52.5 H RDW Coeff of Tarik 14.6 Plt Count 422 MPV 9.3 Immature Gran % (Auto) 0.900 Neut % (Auto) 81.8 H Lymph % (Auto) 10.5 L White % (Auto) 6.0 Eos % (Auto) 0.6 Baso % (Auto) 0.2 Absolute Neuts (auto) 13.1 H Absolute Lymphs (auto) 1.68 Nucleated RBC % 0 Sodium 136 Potassium 3.5 Chloride 99 Carbon Dioxide 29.0 Anion Gap 8 BUN 16 Creatinine 1.18 Estim Creat Clear Calc 58.50 Est GFR (MDRD) Af Amer 77 Est GFR (MDRD) Non-Af 64 BUN/Creatinine Ratio 13.6 Glucose 83 Lactic Acid 1.9 Calcium 9.5 Total Bilirubin 1.20 H AST 33 ALT 123 H Alkaline Phosphatase 151 H Total Protein 7.2 Albumin 3.1 L Globulin 4.1 Albumin/Globulin Ratio 0.8 L Urine Color YELLOW Urine Clarity Sl Cldy Urine pH 7.0 Ur Specific [place] 1.005 Urine Protein 15 H Urine Glucose (UA) 1000 H Urine Ketones Negative Urine Occult Blood 10 H Urine Nitrite Positive H Urine Bilirubin Negative Urine Urobilinogen Normal Ur Leukocyte Esterase 500 H Urine RBC 0-5 SEEN Urine WBC 5-10 SEEN Ur Squamous Epith Cells 0 SEEN Urine Bacteria 0 SEEN Urine Mucus 0 SEEN POC Glucose 90 07/04/24 12:47 WBC RBC Hgb Hct MCV MCH MCHC RDW Std Deviation RDW Coeff of Traik Plt Count MPV Immature Gran % (Auto) Neut % (Auto) Lymph % (Auto) White % (Auto) Eos % (Auto) Baso % (Auto) Absolute Neuts (auto) Absolute Lymphs (auto) Nucleated RBC % Sodium Potassium Chloride Carbon Dioxide Anion Gap BUN Creatinine Estim Creat Clear Calc Est GFR (MDRD) Af Amer Est GFR (MDRD) Non-Af BUN/Creatinine Ratio Glucose Lactic Acid Calcium Total Bilirubin AST ALT Alkaline Phosphatase Total Protein Albumin Globulin Albumin/Globulin Ratio Urine Color Urine Clarity Urine pH Ur Specific [place] Urine Protein Urine Glucose (UA) Urine Ketones Urine Occult Blood Urine Nitrite Urine Bilirubin Urine Urobilinogen Ur Leukocyte Esterase Urine RBC Urine WBC Ur Squamous Epith Cells Urine Bacteria Urine Mucus POC Glucose 80 Radiography Chest X-Ray - ED: 1 View and Read by ED Physician (There are no acute process. There is chronic changes with hyperaeration. Cardiac silhouette size normal. Hilum normal. Osseous structures unremarkable.) Diagnostic Testing: Clinical Impression(s) from Imaging Studies Brain CT 07/04/24 11:25 IMPRESSION: Chronic involutional changes of the brain. Stable lacunar infarct in the left thalamus. Electronically Signed: Anibal Jimenez MD at 12:38 EDT , Chest X-Ray 07/04/24 11:25 IMPRESSION: Hyperinflation. The lungs are clear. Electronically Signed: Anibal Jimenez MD at 12:39 EDT , EKG Initial EKG: Attestation: I personally reviewed and interpreted this EKG as follows: Interpretation: Sinus Bradycardia (Rate is 52. LVH by voltage criteria. CT was 136 ms. QRS duration 98 ms. QT duration is 5 to 26 ms which is prolonged. Hollis is normal.) Treatment and Re-Evaluation :: Patient was reassessed at 1410. Patient is back to baseline. He is alert he is oriented. Will discharge to home. Patient and were informed this is due to prolonged hypoglycemia. 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 department chair, Prolonged Q-T interval on ECG Instructions: ED Diabetic Insulin Reaction Prescriptions: No Action glipizide 10 mg tablet 10 mg PO BID multivitamin Tablet 1 tab PO DAILY melatonin 3 mg Tablet 3 mg PO QHS tamsulosin 0.4 mg Capsule 0.4 mg PO QHS amlodipine 10 mg Tablet 10 mg PO DAILY guaifenesin 200 mg Tablet 200 mg PO Q4H PRN (Reason: Cough) albuterol sulfate [Ventolin HFA] 90 mcg/actuation HFA aerosol inhaler 1 inh inhalation BID pantoprazole 20 mg Tablet,Delayed Release (Dr/Ec) 20 mg PO DAILY fluticasone propionate 50 mcg/actuation [place],Suspension 1 spray INTRANASAL DAILY Rx Instructions: administer into each nostril atorvastatin 40 mg PO DAILY primidone [Mysoline] 50 mg tablet 50 mg PO QHS aspirin 81 mg capsule 81 mg PO DAILY prednisone 20 mg Tablet 40 mg PO BREAKFAST 5 Days Qty: 10 0RF Rx Instructions: Complete additional 5 day burst steroid therapy for COPD Exacerbation clopidogrel 75 mg Tablet 75 mg PO DAILY 30 Days Qty: 30 0RF carvedilol 3.125 mg Tablet 3.125 mg PO BID 30 Days Qty: 60 0RF nystatin [Nyamyc] 100,000 unit/gram Powder 1 applic topical BID 14 Days Qty: 1 0RF Protocol: *Topical Application Instructions APPLICATION INSTRUCTIONS: axillary Rx Instructions: Cleanse affected skin with soap/water, pat dry and then apply powder. insulin glargine-yfgn 100 unit/mL (3 mL) Insulin Pen 15 unit subcut BID 30 Days Qty: 9 0RF Rx Instructions: Please continue insulin as rx; however, when you finish your steroid therapy for COPD exacerbation, the regimen may need decreased. Please monitor your blood sugars and closely follow with your PCP. insulin lispro [Humalog KwikPen Insulin] 100 unit/mL Insulin Pen See Protocol subcut ACHS 30 Days Qty: 1 0RF Protocol: 3. Sliding Scale Insulin Med Dosing Condition: 150-189 mg/dl = 1 unit Condition: 190-229 mg/dl = 2 units Condition: 230-269 mg/dl = 3 units Condition: 270-309 mg/dl = 4 units Condition: 310-349 mg/dl = 5 units Condition: 350-399 mg/dl = 6 units Condition: 400-449 mg/dl = 7 units Condition: Greater than 449 call physician Protocol Text: Suggested for: - Patients on Total Daily Insulin Dose of 37-55 units - Obese, infected, or steroid patients MEDIUM DOSING ALGORITHIM Rx Instructions: May substitute pen for generic option and may transition amount to correspond to 30 day option. Sliding Scale Insulin Medium Dosin-189 BS=1 u, 190-229 BS=2 u, 230-269 BS=3 u, 270-309 BS=4 u, 310-349 BS=5 u, 350-399 BS=6 u, 400 BS= 7 u (DME) blood-glucose meter [Accu-Chek Guide Glucose Meter] Misc See Rx Instructions .Route Qty: 1 0RF Rx Instructions: As directed with ACHS checks for ISS and also PRN (DME) Accu-Chek Guide test strips Strip See Rx Instructions .Route Qty: 100 0RF Rx Instructions: As directed, may substitute test strips to match patient machine. Use ACHS and PRN. (DME) lancets Misc See Rx Instructions .Route Qty: 200 0RF Rx Instructions: As directed for obtaining ACHS and PRN accu checks. ipratropium-albuterol 0.5 mg-3 mg(2.5 mg base)/3 mL Solution For Nebulization 3 ml inhalation [id number] 14 Days Qty: 1 0RF lisinopril 2.5 mg Tablet 2.5 mg PO DAILY 30 Days Qty: 30 0RF potassium chloride 20 mEq tablet,ER particles/crystals 20 meq PO BID Qty: 6 0RF [facility] [Primary Care Provider] - As Needed Print Language: [place] Disposition Disposition: Home, Self Care
[2024-07-04 14:15] VITALS: BP 116/80; PULSE 53; RESP 12; O2SAT 96
[2024-07-04 14:29] VITALS: BP 116/97; PULSE 56; RESP 16; TEMP 37.1; O2SAT 96
== END 2024-07-04 14:30 | disposition home or self-care (01) ==
PROVIDERS: Emergency Provider Emergency Medicine; Visit Provider Emergency Medicine
DX: E11.649 Type 2 diabetes mellitus with hypoglycemia without coma (principal); J44.9 Chronic obstructive pulmonary disease, unspecified; Z79.4 Long term (current) use of insulin; R00.1 Bradycardia, unspecified; I10 Essential (primary) hypertension; E78.5 Hyperlipidemia, unspecified; Z79.51 Long term (current) use of inhaled steroids; Z79.82 Long term (current) use of aspirin; Z79.84 Long term (current) use of oral hypoglycemic drugs; Z79.899 Other long term (current) drug therapy; Z87.891 Personal history of nicotine dependence
CPT/HCPCS: 70450; 71045; 80053; 81001; 82962; 83605; 85025; 93005; 99284; A4216

== ENCOUNTER → 2024-07-05 | Outpatient (CLI) | payer MEDICARE, SELFPAY ==
[2022-04-22 08:14] VITALS: BMI 30.6
== END | disposition home or self-care (01) ==
LOC: LAB 13:31
PROVIDERS: Referring Provider Urology; Visit Provider Urology
DX: C61 Malignant neoplasm of prostate (principal)
CPT/HCPCS: 36415; 84153

== ENCOUNTER → 2024-09-05 | Outpatient (CLI) | payer MEDICARE, SELFPAY ==
[2022-04-22 08:14] VITALS: BMI 30.6
== END | disposition home or self-care (01) ==
LOC: LABSPEC 15:52
PROVIDERS: Referring Provider Urology; Visit Provider Urology
DX: R31.0 Gross hematuria (principal)
CPT/HCPCS: 87086; 87088; 87186

== ENCOUNTER 2024-10-03 13:13 | Inpatient (IN) | payer OTHER, SELFPAY ==
[2022-04-22 08:14] VITALS: BMI 30.6
[2024-10-03] VITALS (11 sets, daily range): BP systolic 93–131; BP diastolic 52–81; PULSE 72–121; RESP 12–48; TEMP 36.9–39.4; O2SAT 90–95; BMI 27.8; BMI 26.9
[2024-10-03] MEDS: Acetaminophen 500 MG Tablet 1000 MG PO (13:39)
[2024-10-03] MEDS: 0.9% Normal Saline (1000mL) 1,000 ML 999 ML IV ×2 (13:40)
[2024-10-03 13:45] LABS: Absolute Lymphocyte Count 0.34 X10^3/uL (0.83-4.51); Absolute Neutrophil Count 15.8 X10^3/uL (2.0-7.7); Basophil# 0.12 X10^3/uL; Basophil% 0.7 % (0-1); Eosinophil# 1.13 X10^3/uL; Eosinophils% 6.1 % (0-5); Hematocrit 48.5 % (40-54); Hemoglobin 16.3 g/dL (13.0-16.5); Lymphocyte # 0.34 X10^3/ul (0.83-4.51); Lymphocyte % 1.8 % (19-41); Mean Corp Hgb Conc 33.6 g/dL (32-36); Mean Corpuscular Hgb 31.9 pg (27.0-32.0); Mean Corpuscular Volume 94.9 fL (80-94); Mean Platelet Vol. 10.2 fl (6.2-12.0); Monocyte# 0.88 X10^3/uL; Monocyte% 4.8 % (0-10); NRBC Flagged by Analyzer 0 % (0-5); Neutrophil # 15.75 X10^3/uL (2.7-7.7); Neutrophil % 85.7 % (47-70); POSITIVE DIFFERENTIAL YES; Platelet Count 314 K/mm3 (150-450); RBC Distribution Width CV 14.6 % (11.6-14.6); RBC Distribution Width SD 51.4 fl (35.1-43.9); Red Blood Count 5.11 M/mm3 (4.6-6.2); White Blood Count 18.4 K/mm3 (4.4-11.0)
[2024-10-03 13:53] LABS: International Normalized Ratio 1.1; Prothrombin Time (Protime)PT. 14.4 SECONDS (11.7-14.9)
[2024-10-03 13:54] LABS: Partial Thromboplast Time 23.4 Seconds (24.1-36.2)
[2024-10-03 13:55] LABS: Lactic Acid 1.5 mmol/L (0.4-1.9)
[2024-10-03 14:01] LABS: ALB/GLOB Ratio 0.9 RATIO (0.9-2.4); AST(SGOT) 36 U/L (15-37); Alanine Aminotransfer ALT/SGPT 53 U/L (16-61); Albumin, Serum 3.6 g/dL (3.2-5.0); Alkaline Phosphatase 136 U/L (45-117); Anion Gap 9 (5-15); BUN 15 mg/dL (7-18); BUN/Creat Ratio 12.2 RATIO (10-20); Calcium,Total 9.3 mg/dL (8.5-10.1); Chloride 102 mmol/L (98-107); Creatinine, Serum 1.23 mg/dL (0.70-1.30); EST Glomerular Filtration Rate 61 mL/min (>60); Est Glom Filt Rate - Afr Amer 74 mL/min (>60); Estimated Creatinine Clearance 59.76 ml/min; Globulin 3.9 g/dL (2.2-4.2); Glucose 165 mg/dL (74-106); Potassium 3.5 mmol/L (3.5-5.1); Protein, Total 7.5 g/dL (6.4-8.2); Sodium Level 136 mmol/L (136-145)
[2024-10-03 14:15] LABS: Mucous, Urine 0 SEEN /hpf (<or=2+); Red Blood Cells-Urine 0 SEEN /hpf (0-5); Squamous Epithelial Cells - UA 0 SEEN /hpf (0-5)
[2024-10-03] MEDS: Azithromycin 500 MG in Dextrose 5%-Water (250mL Bag) 250 ML 250 MG IV (14:15)
[2024-10-03] MEDS: Ceftriaxone 1 GM/50 ML BAG IV (14:20)
[2024-10-03 14:22] LABS: Color, Urine Yellow (Yellow); Glucose, Dipstick 1000 mg/dl (Normal); Ketone-Dipstick Negative (Negative); Leukocyte Esterase-Dipstick 25 /ul (Negative); Nitrite-Dipstick Negative (Negative); Occult Blood-Urine Negative /ul (Negative); Protein-Dipstick 15 mg/dl (Negative); Specific Gravity, Urine 1.005 (1.002-1.030); Urine Bilirubin Dipstick Negative (Negative); Urine Clarity Clear (Clear); Urine Urobilinogen Normal (Normal)
[2024-10-03 14:28] LABS: Blood Gas Specimen Type VEN; O2 Delivery Device Not entered; SITE Not entered; VBG BASE EXCESS -9 mmol/L (-1.0-3.5); VBG Bicarbonate 17 mmol/L (22-26); VBG PO2 45 mmHg (25-40); VBG SO2 79 % (50-70); VBG TCO2 18 mmol/L (23-33); VBG pCO2 30.5 mmHg (41-51); VBG pH 7.35 (7.32-7.42)
[2024-10-03 14:32] LABS: Bacteria RARE /hpf (None Seen); White Blood Cells 0-5 SEEN /hpf (0-5)
[2024-10-03] MEDS: Ipratropium/Albuterol Sulfate 3 ML AMPUL.NEB INHALATION ×2 (17:13→23:29)
[2024-10-03] MEDS: Albuterol 2.5 MG/3 ML VIAL.NEB. INHALATION (17:13)
[2024-10-03 19:23] LABS: Magnesium 1.8 mg/dL (1.6-2.6)
[2024-10-03 20:44] LABS: Procalcitonin 2.93 ng/mL (0.00-0.09)
[2024-10-03] MEDS: Tamsulosin HCl 0.4 MG Capsule PO (20:47)
[2024-10-03] MEDS: 0.9% Normal Saline (1000mL) 1,000 ML 100 ML IV (20:51)
[2024-10-03] MEDS: Potassium Chloride Oral Tablet 20 MEQ PO (22:16)
[2024-10-03] MEDS: Primidone 50 MG Tablet PO (22:17)
[2024-10-03] MEDS: MELATONIN 3 MG TABLET PO (22:17)
[2024-10-03] MEDS: 0.9% Saline Lock 10 ML Syringe IV (22:29)
[2024-10-03] MEDS: Insulin Glargine-YFGN 100 UNIT/ML Pen 16 UNIT SC (22:29)
[2024-10-03 23:19] LABS: Bedside Glucose 115 mg/dL (74-106)
[2024-10-04] VITALS (12 sets, daily range): BP systolic 102–119; BP diastolic 58–78; PULSE 65–86; RESP 16–18; TEMP 36.4–37.1; O2SAT 92–98; BMI 26.9
[2024-10-04] MEDS: 0.9% Saline Lock 10 ML Syringe IV ×2 (06:10→22:45)
[2024-10-04] MEDS: Insulin Lispro 100 UNIT/ML INSULN.PEN SC ×4 (06:28→22:42)
[2024-10-04 06:40] LABS: Absolute Lymphocyte Count 0.61 X10^3/uL (0.83-4.51); Absolute Neutrophil Count 13.8 X10^3/uL (2.0-7.7); Basophil# 0.05 X10^3/uL; Basophil% 0.3 % (0-1); Eosinophil# 0.09 X10^3/uL; Eosinophils% 0.6 % (0-5); Hematocrit 44.6 % (40-54); Hemoglobin 14.8 g/dL (13.0-16.5); Lymphocyte # 0.61 X10^3/ul (0.83-4.51); Lymphocyte % 4.1 % (19-41); Mean Corp Hgb Conc 33.2 g/dL (32-36); Mean Corpuscular Hgb 32.4 pg (27.0-32.0); Mean Corpuscular Volume 97.6 fL (80-94); Mean Platelet Vol. 10.3 fl (6.2-12.0); Monocyte# 0.12 X10^3/uL; Monocyte% 0.8 % (0-10); NRBC Flagged by Analyzer 0 % (0-5); Neutrophil # 13.78 X10^3/uL (2.7-7.7); Neutrophil % 93.7 % (47-70); POSITIVE MORPHOLOGY YES; Platelet Count 271 K/mm3 (150-450); RBC Distribution Width CV 14.6 % (11.6-14.6); RBC Distribution Width SD 52.8 fl (35.1-43.9); Red Blood Count 4.57 M/mm3 (4.6-6.2); White Blood Count 14.7 K/mm3 (4.4-11.0)
[2024-10-04 06:41] LABS: Bedside Glucose 162 mg/dL (74-106)
[2024-10-04 06:46] LABS: ALB/GLOB Ratio 0.8 RATIO (0.9-2.4); AST(SGOT) 26 U/L (15-37); Alanine Aminotransfer ALT/SGPT 39 U/L (16-61); Alkaline Phosphatase 111 U/L (45-117); Anion Gap 10 (5-15); BUN 16 mg/dL (7-18); BUN/Creat Ratio 14.2 RATIO (10-20); Calcium,Total 8.6 mg/dL (8.5-10.1); Chloride 106 mmol/L (98-107); Creatinine, Serum 1.13 mg/dL (0.70-1.30); EST Glomerular Filtration Rate 67 mL/min (>60); Est Glom Filt Rate - Afr Amer 81 mL/min (>60); Estimated Creatinine Clearance 60.16 ml/min; Globulin 3.7 g/dL (2.2-4.2); Glucose 159 mg/dL (74-106); Potassium 4.1 mmol/L (3.5-5.1); Protein, Total 6.7 g/dL (6.4-8.2); Sodium Level 136 mmol/L (136-145)
[2024-10-04] MEDS: Ipratropium/Albuterol Sulfate 3 ML AMPUL.NEB INHALATION ×4 (07:13→19:39)
[2024-10-04 07:30] LABS: Differential Indicated SCAN CRITERIA MET
[2024-10-04 08:27] LABS: Platelet Estimate ADEQUATE (ADEQ); Red Cell Morphology NORM C+C NORMAL (NORM C&C); Vacuolated Cells 2+
[2024-10-04] MEDS: Carvedilol 3.125 MG TABLET PO ×2 (08:38→16:25)
[2024-10-04] MEDS: FLU VACCINE **HIGH DOSE** TV 24-25 180 MCG/0.5 ML SYRINGE IM (10:59)
[2024-10-04] MEDS: Insulin Glargine-YFGN 100 UNIT/ML Pen 16 UNIT SC ×2 (11:03→22:44)
[2024-10-04] MEDS: Potassium Chloride Oral Tablet 20 MEQ PO ×2 (11:04→22:40)
[2024-10-04] MEDS: Enoxaparin 40 MG/0.4 ML Syringe SC (11:04)
[2024-10-04] MEDS: Lisinopril 2.5 MG Tablet PO (11:04)
[2024-10-04] MEDS: Pantoprazole Sodium 20 MG Tablet PO (11:04)
[2024-10-04] MEDS: Clopidogrel Bisulfate 75 MG Tablet PO (11:04)
[2024-10-04] MEDS: amLODIPine 10 MG Tablet PO (11:05)
[2024-10-04] MEDS: Atorvastatin Calcium 40 MG Tablet PO (11:05)
[2024-10-04 12:39] LABS: Bedside Glucose 255 mg/dL (74-106)
[2024-10-04] MEDS: Glucerna Shake 120 ML LIQUID PO ×2 (14:14→18:30)
[2024-10-04 16:43] LABS: Bedside Glucose 285 mg/dL (74-106)
[2024-10-04] MEDS: MELATONIN 3 MG TABLET PO (22:39)
[2024-10-04] MEDS: Tamsulosin HCl 0.4 MG Capsule PO (22:39)
[2024-10-04] MEDS: Primidone 50 MG Tablet PO (22:41)
[2024-10-05] VITALS (8 sets, daily range): BP systolic 105–115; BP diastolic 67–81; PULSE 62–78; RESP 16–18; TEMP 35.8–36.6; O2SAT 90–97; BMI 26.9
[2024-10-05 00:12] LABS: Bedside Glucose 301 mg/dL (74-106)
[2024-10-05] MEDS: Insulin Lispro 100 UNIT/ML INSULN.PEN SC ×2 (06:28→11:35)
[2024-10-05] MEDS: 0.9% Saline Lock 10 ML Syringe IV (06:28)
[2024-10-05] MEDS: Ipratropium/Albuterol Sulfate 3 ML AMPUL.NEB INHALATION ×2 (06:50→10:38)
[2024-10-05 07:07] LABS: Bedside Glucose 206 mg/dL (74-106)
[2024-10-05] MEDS: Enoxaparin 40 MG/0.4 ML Syringe SC (08:54)
[2024-10-05] MEDS: Insulin Glargine-YFGN 100 UNIT/ML Pen 16 UNIT SC (08:55)
[2024-10-05] MEDS: Carvedilol 3.125 MG TABLET PO (08:55)
[2024-10-05] MEDS: Potassium Chloride Oral Tablet 20 MEQ PO (08:55)
[2024-10-05] MEDS: Lisinopril 2.5 MG Tablet PO (08:55)
[2024-10-05] MEDS: Atorvastatin Calcium 40 MG Tablet PO (08:55)
[2024-10-05] MEDS: amLODIPine 10 MG Tablet PO (08:55)
[2024-10-05] MEDS: Clopidogrel Bisulfate 75 MG Tablet PO (08:55)
[2024-10-05] MEDS: Pantoprazole Sodium 20 MG Tablet PO (08:55)
[2024-10-05 09:11] LABS: Absolute Lymphocyte Count 1.05 X10^3/uL (0.83-4.51); Absolute Neutrophil Count 18.3 X10^3/uL (2.0-7.7); Basophil# 0.07 X10^3/uL; Basophil% 0.3 % (0-1); Eosinophil# 0.02 X10^3/uL; Eosinophils% 0.1 % (0-5); Hemoglobin 14.3 g/dL (13.0-16.5); Lymphocyte # 1.05 X10^3/ul (0.83-4.51); Lymphocyte % 5.2 % (19-41); Mean Corp Hgb Conc 33.3 g/dL (32-36); Mean Corpuscular Hgb 32.2 pg (27.0-32.0); Mean Corpuscular Volume 96.8 fL (80-94); Mean Platelet Vol. 9.8 fl (6.2-12.0); NRBC Flagged by Analyzer 0 % (0-5); Neutrophil # 18.27 X10^3/uL (2.7-7.7); Neutrophil % 90.9 % (47-70); Platelet Count 310 K/mm3 (150-450); RBC Distribution Width CV 14.6 % (11.6-14.6); RBC Distribution Width SD 52.1 fl (35.1-43.9); Red Blood Count 4.44 M/mm3 (4.6-6.2); White Blood Count 20.1 K/mm3 (4.4-11.0)
[2024-10-05 09:42] LABS: Anion Gap 5 (5-15); BUN 29 mg/dL (7-18); BUN/Creat Ratio 29.1 RATIO (10-20); Calcium,Total 9.3 mg/dL (8.5-10.1); Chloride 108 mmol/L (98-107); EST Glomerular Filtration Rate 78 mL/min (>60); Est Glom Filt Rate - Afr Amer 94 mL/min (>60); Estimated Creatinine Clearance 67.98 ml/min; Glucose 210 mg/dL (74-106); Potassium 4.5 mmol/L (3.5-5.1); Sodium Level 137 mmol/L (136-145)
[2024-10-05 11:56] LABS: Bedside Glucose 288 mg/dL (74-106)
== END 2024-10-05 14:15 | disposition home or self-care (01) | DRG 191 ==
LOC: ED 17:44 → PCU 18:07
PROVIDERS: Nurse Practitioner; Admitting Provider Family Medicine; Emergency Provider Emergency Medicine; Visit Provider Student in an Organized Health Care Education/Training Program
DX: J43.9 Emphysema, unspecified (principal); I24.89 Other forms of acute ischemic heart disease; N13.8 Other obstructive and reflux uropathy; E11.65 Type 2 diabetes mellitus with hyperglycemia; I10 Essential (primary) hypertension; F32.A Depression, unspecified; E78.5 Hyperlipidemia, unspecified; K21.9 Gastro-esophageal reflux disease without esophagitis; Z79.4 Long term (current) use of insulin; I25.2 Old myocardial infarction; I25.10 Atherosclerotic heart disease of native coronary artery without angina pectoris; G47.33 Obstructive sleep apnea (adult) (pediatric); K59.00 Constipation, unspecified; F41.9 Anxiety disorder, unspecified; N40.1 Benign prostatic hyperplasia with lower urinary tract symptoms; R09.02 Hypoxemia; R91.8 Other nonspecific abnormal finding of lung field; Z79.02 Long term (current) use of antithrombotics/antiplatelets; Z79.51 Long term (current) use of inhaled steroids; Z79.82 Long term (current) use of aspirin; Z79.84 Long term (current) use of oral hypoglycemic drugs; Z79.899 Other long term (current) drug therapy; Z87.891 Personal history of nicotine dependence; Z23 Encounter for immunization
CPT/HCPCS: 36415; 71046; 74177; 80048; 80053; 81001; 82803; 82962; 83605; 83735; 84145; 85025; 85610; 85730; 87040; 87070; 87086; 87205; 87631; 87633; 90662; 93005; 94640; 94668; 97802; 99285; J7030; P9612; Q9967; A4216

== ENCOUNTER 2024-10-05 11:00 | Outpatient (CLI) | payer MEDICARE, SELFPAY ==
[2022-04-22 08:14] VITALS: BMI 30.6
[2024-09-21 13:04] LABS: Absolute Lymphocyte Count 1.86 X10^3/uL (0.83-4.51); Absolute Neutrophil Count 5.2 X10^3/uL (2.0-7.7); Basophil# 0.06 X10^3/uL; Basophil% 0.7 % (0-1); Eosinophils% 7.1 % (0-5); Hematocrit 45.9 % (40-54); Lymphocyte # 1.86 X10^3/ul (0.83-4.51); Lymphocyte % 22.1 % (19-41); Mean Corp Hgb Conc 32.7 g/dL (32-36); Mean Corpuscular Volume 97.9 fL (80-94); Mean Platelet Vol. 9.9 fl (6.2-12.0); Monocyte# 0.67 X10^3/uL; Monocyte% 7.9 % (0-10); NRBC Flagged by Analyzer 0 % (0-5); Neutrophil # 5.21 X10^3/uL (2.7-7.7); Neutrophil % 61.8 % (47-70); Platelet Count 338 K/mm3 (150-450); RBC Distribution Width CV 15.4 % (11.6-14.6); RBC Distribution Width SD 55.7 fl (35.1-43.9); Red Blood Count 4.69 M/mm3 (4.6-6.2); White Blood Count 8.4 K/mm3 (4.4-11.0)
[2024-09-21 13:40] LABS: Anion Gap 3 (5-15); BUN 16 mg/dL (7-18); BUN/Creat Ratio 14.8 RATIO (10-20); Calcium,Total 9.6 mg/dL (8.5-10.1); Chloride 106 mmol/L (98-107); Creatinine, Serum 1.08 mg/dL (0.70-1.30); EST Glomerular Filtration Rate 71 mL/min (>60); Est Glom Filt Rate - Afr Amer 86 mL/min (>60); Glucose 151 mg/dL (74-106); Sodium Level 138 mmol/L (136-145)
[2024-09-21 13:49] LABS: Hemoglobin A1c 8.3 % (3.8-5.6)
--- OUTSIDE RECORDS SUMMARY | 2025-12-04 17:29 | XMS RPT_ITS | CCD ---
Author Organization [facility] Care Team Providers Care Insurance Sales Executive Name Role Phone [facility], [place] Referring Provider Unavailable Dr. Kaley Singletary Attending Provider Dr. Kaley Singletary Other Provider Dr. Facundo Sotomayor Emergency Provider [phone] freddy, Dr. Cardona Admit Provider Dr. Dulce Weeks [facility] Dr. Osvaldo Merritt Attending Provider Dr. Lorenzo Anderson Attending Provider [facility], [place] Primary Care Provider Unavailabl e Dr. Facundo Sotomayor Emergency Provider [phone] Micky, Dr. Cardona Admit Provider Micky, Dr. Cardona Attending Provider Dr. Dulce Weeks Other Provider Micky, Dr. Cardona Referring Provider Dr. Osvaldo Merritt Attending Provider Dr. Lorenzo Anderson Attending Provider Maude Mcclain Attending Provider Unavailable Dr. Milton Faith Attending Provider Dr. Carlos Reyes Referring Provider [place], [place] Referring Provider Unavailable Dr. Kaley Singletary Attending Provider [phone] Dr. Kaley Singletary Other Provider [facility], [place] [facility] [place] [facility], [place] Referring Provider [facility] Dr. Kaley Singletary Attending Provider ISAI Hartmann Attending Provider Dr. Lorenzo Anderson Attending Provider Dr. Kaley Singletary Referring Provider Dr. Kaley Singletary Other Provider [facility] Primary Care Physician ADDISON PRATHER, DR KWADWO BURNETT Attending [facility] Primary [facility] ADDISON PRATHER, DR KWADWO BURNETT Attending [facility] ADDISON PRATHER, DR KWADWO BURNETT Admitting [facility] Primary Care [facility], [place] Primary Care Provider Unavailabl e Clint KOENIG, Dr. Gerard Emergency Provider Amos PRATHER, Dr. Triny Luis Admit Provider Amos PRATHER, Dr. Triny Luis Other Provider Navin PRATHER, Dr. Annette Mccormick Attending Provider [place], [place] [facility] Holden MD, Dr. Annette Mccormick Other Provider Dr. Nikolai Barr DO Attending Provider Dr. Nikolai Barr DO Emergency Provider Syd Ronquillo MD Emergency Provider Vania PRATHER, Dr. Allen Garner Admit Provider Vania PRATHER, Dr. Allen Garner Attending Provider Dr. Allen Caro MD Referring Provider Dr. Delmar Vela MD Other Provider Dr. Delmar Vela MD Attending Provider Dr. Allen Caro MD Other Provider Dr. Lorenzo Anderson MD Attending Provider [phone] Crystal PRATHER, Dr. Parmar Attending Provider Jo PRATHER, Dr. Everett Attending Provider [phone] Jo PRATHER, Dr. Everett Referring Provider [phone] [facility], [place] Primary Care Provider [facility] Referring Provider Unavailable Rosa Bentley Attending Provider [phone] [facility], [place] Primary Care Provider Unavailmarisol Sotomayor MD, Dr. Loredo Emergency Provider Bran PRATHER, Dr. Loredo Attending Provider [phone] Addison PRATHER, Dr. Kwadwo Burnett Attending Provider Addison PRATHER, Dr. Kwadwo Burnett Referring Provider [facility], [place] Primary Care Physician Unavailab daisy Sotomayor MD, Dr. Loredo Attending Physician [phone] Bran PRATHER, Dr. Loredo Emergency Department Physician Addison PRATHER, Dr. Kwadwo Burnett Attending Physician Tash Pope NP Attending Physician [phone] Tash Pope NP Referring Provider Kotsonis, Allen F Referring Unavailable Kotsonis, Allen F Admitting [facility] Primary Care Unavailable Horaceonis, Allen F Attending Unavailable Delmar Vela Consulting Unavailable Kotsonis, Allen F Consulting Unavailable Nikolai Barr Attending [facility] [place] Primary Care Unavailable Kotsonis, Allen F Referring Unavailable Kotsonis, Allen F Admitting [facility] [facility] Care Unavailable Gennarotsonis, Allen F Attending Unavailable Delmar Vela Consulting Unavailable Kwadwo Jaime Attending Unavailable Kwadwo Jaime Referring [facility] [facility] [place] [facility] Unavailable Tash Pope NP Attending Unavailable Tash Pope NP Referring [facility] [place] [facility] Unavailable Facundo Sotomayor Attending Unavailable Agata Rojas Attending Unavailabl e Triny Trinidad Admitting Unavailable Triny Trinidad Consulting Unavailable Triny Trinidad Attending [facility] [place] [facility] [place] [facility] Unavailable Karlos Osorio Attending Unavailable Lorenzo Anderson Attending [facility] [place] [facility] Unavailable Annette Holden Attending Unavailable Annette Holden Consulting Unavailable Delmar Vela Attending Unavailable Kwadwo Jaime Attending Unavailable Kwadwo Jaime Referring Unavailable Hospital, [facility] Unavailable [facility] [place] Primary Care Unavailable Kwadwo Jaime Attending Unavailable Kwadwo Jaime Referring Unavailable Karlos Osorio Attending Unavailable Karlos Osorio Referring Unavailable Hospital, [facility] Unavailable Annette Holden Attending Unavailable WhiteTriny L Admitting Unavailable WhiteTriny L Consulting [facility] [place] [facility] [place] [facility] [facility] [place] Unavailable Rosa Cuellar Attending [facility] [facility] [place] Referring Unavailable Allergies Allergy Classification Reported Allergen(s) Allergy Type Date of Onset Reaction(s) Facility (4 sources) gabapentin Drug Allergy 2 PT UNSURE OF REACTION [facility] (4 sources) rosuvastatin Drug Allergy 2 PT UNSURE OF REACTION [facility] (3 sources) hydrozyzine Propensity to adverse reactions 2 PT UNSURE OF REACTION [facility] Work Phone: (1 source) hydrOXYzine Drug Allergy 3 NEEDS FOLLOW-UP [facility] (1 source) Adhesive Tape Drug allergy (disorder) 4 [facility] Repository (1 source) gabapentin Drug Allergy 4 [facility] (1 source) hydrOXYzine Drug Allergy 4 [facility] (1 source) rosuvastatin Drug Allergy 4 [facility] Rep[facility] Medications Current Medications Medication Drug Class(es) Dates Sig (Normalized) Sig (Original) [id number] 200 actuat albuterol 0.09 mg/actuat metered dose inhaler (20 sources) beta2-Adrenergic Agonist Start: 03-24-2022 Start: 03-24-2022 Albuterol Sulf ate (Ventolin Hfa) 90 mcg/actuation HFA aerosol inhaler Active 1 INH INHALATION TWICE A DAY March 24, 2022 10:19am Start: 03-24-2022 Albuterol Sulf ate (Ventolin Hfa) 90 mcg/actuation HFA aerosol inhaler Active 1 INH INHALATION NEEDED March 24, 2022 10:19am Start: 03-24-2022 Albuterol Sulf ate (Ventolin Hfa) 90 mcg/actuation HFA aerosol inhaler Active 1 INH INHALATION NEEDED March 24, 2022 10:19am Start: 10-18-2021 End: 03-24-2022 Albuterol Sulfate (Ventolin Hfa) 90 mcg/actuation HFA aerosol inhaler Discontinued 1 INH INHALATION EVERY 6 HOURS 8.October 18, 2021 12:29pm March 24, 2022 10:19am Start: 10-18-2021 Albuterol Sulf ate (Ventolin Hfa) 90 mcg/actuation HFA aerosol inhaler Active 1 INH INHALATION EVERY 6 HOURS 8.October 18, 2021 12:29pm Start: 10-18-2021 End: 03-24-2022 Albuterol Sulfate (Ventolin Hfa) 90 mcg/actuation HFA aerosol inhaler Discontinued 1 NMA INHALATION EVERY 6 HOURS 8.October 18, 2021 1:00am March 24, 2022 10:19am Start: 10-18-2021 End: 03-24-2022 Albuterol Sulfate (Ventolin Hfa) 90 mcg/actuation HFA aerosol inhaler Discontinued 1 INH INHALATION EVERY 6 HOURS 8.October 18, 2021 1:00am March 24, 2022 10:19am albuterol 0.833 mg/ml / ipratropium bromide 0.167 mg/ml inhalation solution (10 sources) Anticholinergic, beta2-Adrenergic Agonist Start: 11-11-2024 take 3 mL by inhalation every six hours albuterol-ipratropium 2.5 mg-0.5 mg/3 mL inhalation solution INHALE 3 ML VIA NEBULIZER EVERY 6 HOURS FOR 14 DAYS Start Date: 11/11/24 Status: Ordered Repeat number: 1 Start: 06-28-2024 End: 10-03-2024 take 1 mL by inhalation every six hours as needed for chronic obstructive pulmonary disease Alive Men's Complete Multivitamin oral tablet (2 sources) Start: 11-11-2024 take 1 tablet by mouth once daily Alive Men's Complete Multivitamin oral tablet Oral, qDay, 0 Refill(s) Start Date: 11/11/24 Status: Ordered Repeat number: 1 amLODIPine 2.5 mg oral tablet (20 sources) Dihydropyridine Calcium Channel [place] Start: 12-24-2024 take 1 tablet by mouth once daily Start: 12-23-2021 End: 12-24-2024 take 1 tablet by mouth once daily Amlodipine 10 mg Tablet Discontinued 10 mg PO DAILY December 23, 2021 1:00am December 24, 2024 12:26pm HTN atorvastatin 80 mg oral tablet (13 sources) HMG-CoA Reductase Inhibitor Start: 11-11-2024 atorvastatin 80 mg oral tablet Dose : 80 mg = 1 tab(s), Oral, Daily, # 90 tab(s), 0 Refill(s) Start Date: 11/11/24 Status: Ordered Quantity: 90.0 Unit: tab(s) Repeat number: 1 Start: 10-13-2022 End: 10-03-2024 take 1 tablet by mouth once daily Start: 10-13-2022 take 20 mg by mouth once daily atorvastatin Active 20 MG SL/PO DAILY October 13, 2022 12:00am azithromycin 500 mg oral tablet (1 source) Macrolide Antimicrobial Start: 05-31-2022 take 500 mg by mouth once daily Azithromycin Active 500 MG PO DAILY 2 2 May 31, 2022 12:00am Blood-Glucose Meter (Accu-Chek Guide Glucose Meter) misc (4 sources) Start: 06-28-2024 Blood-Glucose Meter (Accu-Chek Guide Glucose Meter) misc Active 0 .Route 1 0 June 28, 2024 12:00am Diabetes mellitus type II As directed with [facility] checks for ISS and also PRN Start: 06-28-2024 Blood-Glucose Meter (Accu-Chek Guide Glucose Meter) misc Active 0 .Route 1 June 28, 2024 12:00am As directed with [facility] checks for ISS and also PRN ciprofloxacin 500 mg oral tablet (9 sources) Quinolone Antimicrobial Start: 11-25-2024 End: 12-02-2024 Cipro 500 mg oral tablet Dose : 500 mg = 1 tab(s), Oral, q12h, X 7 day(s), # 14 tab(s), 0 Refill(s), 12/02/24 2:10:00 PM EST, Pharmacy: [facility]/pharmacy #[id number], 180.3, cm, 11/25/24 12:13:00 EST, Height, 90.9, kg, 11/25/24 12:13:00 EST, Dosing Weight Start Date: 11/25/24 Stop Date: 12/02/24 Status: Ordered Quantity: 14.0 Unit: tab(s) Repeat number: 1 Start: 05-07-2024 End: 06-20-2024 take 1 tablet by mouth twice daily Ciprofloxacin Hcl 500 mg tablet Discontinued 500 mg PO TWICE A DAY 10 5 0 June 05, 2024 12:00am June 20, 2024 6:09pm fluticasone propionate 0.05 mg/actuat metered dose nasal spray (12 sources) Corticosteroid Start: 04-29-2022 Start: 04-29-2022 take 1 spray(s) nasa l route once daily Fluticasone Propionate Active 1 SPRAY INTRANASAL DAILY April 29, 2022 12:00am administer into each nostril fosfomycin 3000 mg powder for oral solution (4 sources) Start: 12-24-2024 glipiZIDE 10 mg oral tablet (20 sources) Sulfonylurea Start: 04-29-2023 take 1 tablet by renee th twice daily Start: 04-29-2023 take 10 mg by mouth once daily Glipizide Active 10 MG PO DAILY April 29, 2023 12:00am Start: 05-31-2022 End: 04-29-2023 take 1 tablet by mouth twice daily Glipizide 5 mg Tablet Discontinued 5 mg PO TWICE A DAY 60 30 0 May 31, 2022 12:00am April 29, 2023 9:22am Start: 02-21-2022 End: 05-31-2022 take 1 tablet by mouth once daily Glipizide 5 mg Tablet Discontinued 5 mg PO DAILY February 21, 2022 12:00am May 31, 2022 10:33am guaiFENesin 200 mg oral tablet (17 sources) Start: 02-21-2022 take 1 tablet by mouth every four hours as needed for cough hydrOXYzine pamoate 25 mg oral capsule (5 sources) Antihistamine Start: 04-29-2022 take 25 mg by mouth twice daily Hydroxyzine Pamoate Active 25 MG PO TWICE A DAY April 28, 2022 11:00pm Insulin Glargine-Yfgn (2 sources) Start: 10-03-2024 Start: 06-28-2024 End: 10-03-2024 Insulin Glargine-Yfgn 100 un it/mL (3 mL) Insulin Pen Discontinued 15 U SC TWICE A DAY June 28, 2024 12:00am October 03, 2024 3:41pm Please continue insulin as rx; however, when you finish your steroid therapy for COPD exacerbation, the regimen may need decreased. Please monitor your blood sugars and closely follow with your PCP. Insulin Glargine-Yfgn 100 unit/mL (3 mL) Insulin Pen (6 sources) Start: 10-03-2024 Insulin Glargi ne-Yfgn 100 unit/mL (3 mL) Insulin Pen Active 16 U SC TWICE A DAY October 03, 2024 1:00am diabetes Please continue insulin as rx; however, when you finish your steroid therapy for COPD exacerbation, the regimen may need decreased. Please monitor your blood sugars and closely follow with your PCP. Start: 10-03-2024 Insulin Glargi ne-Yfgn 100 unit/mL (3 mL) Insulin Pen Active 16 U SC TWICE A DAY October 03, 2024 1:00am Please continue insulin as rx; however, when you finish your steroid therapy for COPD exacerbation, the regimen may need decreased. Please monitor your blood sugars and closely follow with your PCP. Start: 06-28-2024 End: 10-03-2024 Insulin Glargine-Yfgn 100 un it/mL (3 mL) Insulin Pen Discontinued 15 U SC TWICE A DAY June 28, 2024 12:00am October 03, 2024 3:41pm Please continue insulin as rx; however, when you finish your steroid therapy for COPD exacerbation, the regimen may need decreased. Please monitor your blood sugars and closely follow with your PCP. Start: 06-28-2024 End: 10-03-2024 Insulin Glargine-Yfgn 100 un it/mL (3 mL) Insulin Pen Discontinued 15 U SC TWICE A DAY 08 08June 28, 2024 12:00am October 03, 2024 3:41pm Please continue insulin as rx; however, when you finish your steroid therapy for COPD exacerbation, the regimen may need decreased. Please monitor your blood sugars and closely follow with your PCP. 3 ml insulin lispro 100 unt/ml pen injector (10 sources) Insulin Analog Start: 11-11-2024 Insulin Lispro KwikPen 100 units/mL injectable solution Dose : 16 unit(s) =, PLEASE SEE ATTACHED FOR DETAILED DIRECTIONS PT TAKES AM/PM Start Date: 11/11/24 Status: Ordered Repeat number: 1 Start: 10-03-2024 Start: 06-28-2024 End: 10-03-2024 Insulin Lispro (Humalog Kwik pen Insulin) 100 unit/mL Insulin Pen Discontinued 0 U SC BEFORE MEALS AND AT BEDTIME Protocol: Suggested for:- Patients on Total Daily Insulin Dose of 37-55 units- Obese, infected, or steroid patientsMEDIUM DOSING ALGORITHIM Condition: 150-189 mg/dl = 1 unit Condition: 190-229 mg/dl = 2 units Condition: 230-269 mg/dl = 3 units Condition: 270-309 mg/dl = 4 units Condition: 310-349 mg/dl = 5 units Condition: 350-399 mg/dl = 6 units Condition: 400-449 mg/dl = 7 units Condition: Greater than 449 call physician 1 30 0 June 28, 2024 12:00am October 03, 2024 3:41pm May substitute pen for generic option and may transition amount to correspond to 30 day option. Sliding Scale Insulin Medium Dosin-189 BS=1 u, 190-229 BS=2 u, 230-269 BS=3 u, 270-309 BS=4 u, 310-349 BS=5 u, 350-399 BS=6 u, 400 BS= 7 u Please contact the information source for Protocol details. Start: 06-28-2024 End: 10-03-2024 Insulin Lispro (Humalog Kwik pen Insulin) 100 unit/mL Insulin Pen Active 1 sliding scale dose SC BEFORE MEALS AND AT BEDTIME October 03, 2024 1:00am diabetes Please contact the information source for Protocol details. lisinopril 2.5 mg oral tablet (11 sources) Angiotensin Converting Enzyme Inhibitor Start: 06-28-2024 take 1 tablet by mouth once daily Start: 10-13-2022 End: 05-05-2024 take 10 mg by mouth once daily lisinopril Discontinued 10 mg SL/PO DAILY October 13, 2022 1:00am May 05, 2024 10:57pm magnesium citrate 58.2 mg/ml oral solution (1 source) Start: 10-07-2024 take 1 mL by mouth once Magnesium Citrate solution Active 300 mL PO ONE TIME 2 October 07, 2024 1:00am May repeat in 12 hours if no large bowel movement melatonin 3 mg oral tablet (17 sources) Start: 12-23-2021 take 1 tablet by mouth at bedtime metoprolol tartrate 50 mg oral tablet (4 sources) beta-Adrenergic [place] Start: 12-24-2024 take 1 tablet by mouth twice daily Multivitamin preparation (13 sources) Start: 12-23-2021 take 1 tablet by mouth once daily Multivitamin Active 1 TABLET PO DAILY December 23, 2021 10:19am Start: 12-23-2021 take 1 tablet by renee th once daily Multivitamin Active 1 TABLET PO DAILY December 23, 2021 12:00am Start: 12-23-2021 take 1 tablet by renee th once daily Multivitamin Active 1 TABLET PO DAILY December 23, 2021 1:00am Multivitamin Tablet (4 sources) Start: 12-23-2021 Start: 12-23-2021 Multivitamin T ablet Active 1 {tbl} PO DAILY December 23, 2021 1:00am multivitamin Start: 12-23-2021 Multivitamin T ablet Active 1 {tbl} PO DAILY December 23, 2021 1:00am nystatin 100 unt/mg topical powder (13 sources) Polyene Antifungal Start: 06-28-2024 End: 10-03-2024 Start: 01-14-2022 Nystatin Activ e [id number] UNIT BUCCAL DAILY January 14, 2022 1:01am omeprazole 20 mg delayed release oral tablet (5 sources) Proton Pump Inhibitor Start: 12-23-2021 take 20 mg by mouth once daily Omeprazole Active 20 MG PO DAILY December 23, 2021 10:19am microencapsulated potassium chloride 20 meq extended release oral tablet (5 sources) Start: 06-16-2023 take 1 tablet by mouth twice daily pravastatin sodium 80 mg oral tablet (10 sources) HMG-CoA Reductase Inhibitor Start: 12-23-2021 take 80 mg by mouth at bedtime Pravastatin Active 80 MG PO AT BEDTIME December 23, 2021 12:00am primidone 50 mg oral tablet (11 sources) Anti-epileptic Agent Start: 05-05-2024 take 1 tablet by mouth at bedtime Start: 10-13-2022 End: 04-29-2023 take 50 mg by mouth at bedtime primidone Discontinued 50 mg SL/PO AT BEDTIME October 13, 2022 1:00am April 29, 2023 9:23am propranolol hydrochloride 10 mg oral tablet (5 sources) beta-Adrenergic [place] Start: 04-29-2022 take 10 mg by mouth three times daily Propranolol Active 10 MG PO THREE TIMES A DAY April 28, 2022 11:00pm Completed/Discontinued Medications Medication Drug Class(es) Dates Sig (Normalized) Sig (Original) alogliptin 25 mg oral tablet (4 sources) Start: 05-05-2024 End: 06-20-2024 take 1 tablet by mouth once daily Alogliptin 25 mg tablet Discontinued 25 mg PO DAILY May 05, 2024 12:00am June 20, 2024 6:09pm amoxicillin 875 mg / clavulanate 125 mg oral tablet (6 sources) Penicillin-class Antibacterial Start: 11-05-2022 End: 04-29-2023 take 1 tablet by mouth every twelve hours Amoxicillin-Pot Clavulanate 875-125 mg tablet Discontinued 875 mg PO Q12H 28 0 November 05, 2022 1:00am April 29, 2023 9:21am apixaban 5 mg oral tablet (4 sources) Factor Xa Inhibitor Start: 12-24-2024 End: 05-30-2025 take 1 tablet by mouth twice daily Apixaban (Eliquis) 5 mg Tablet Discontinued 5 mg PO TWICE A DAY 60 30 0 December 24, 2024 1:00am May 30, 2025 9:04am aspirin 81 mg oral tablet (4 sources) Platelet Aggregation Inhibitor, Nonsteroidal Anti-inflammatory Drug Start: 05-05-2024 End: 09-21-2024 take 1 capsule by mouth once daily Aspirin 81 mg capsule Discontinued 81 mg PO DAILY May 05, 2024 12:00am September 21, 2024 9:36am HEART carvedilol 3.125 mg oral tablet (11 sources) alpha-Adrenergic [place], beta-Adrenergic [place] Start: 06-28-2024 End: 12-24-2024 take 1 tablet by mouth twice daily Carvedilol 3.125 mg Tablet Discontinued 3.125 mg PO TWICE A DAY 60 30 0 June 28, 2024 12:00am December 24, 2024 12:27pm blood pressure Start: 12-23-2021 take 12.5 mg by mout h once daily Carvedilol Active 12.5 MG PO DAILY December 23, 2021 10:19am cephalexin 500 mg oral capsule (10 sources) Cephalosporin Antibacterial Start: 05-16-2024 End: 06-20-2024 take 1 capsule by mouth three times daily Cephalexin 500 mg capsule Discontinued 500 mg PO THREE TIMES A DAY 21 7 0 May 16, 2024 12:00am June 20, 2024 6:09pm Start: 10-30-2022 End: 04-29-2023 take 1 capsule by mouth every six hours Cephalexin 500 mg capsule Discontinued 500 mg PO EVERY 6 HOURS 40 0 October 30, 2022 1:00am April 29, 2023 9:22am chlorthalidone 25 mg oral tablet (5 sources) Thiazide-like Diuretic Start: 04-29-2023 End: 06-28-2024 take 1 tablet by mouth once daily Chlorthalidone 25 mg tablet Discontinued 25 mg PO DAILY April 29, 2023 12:00am June 28, 2024 11:30am HTN citalopram 10 mg oral tablet (17 sources) Serotonin Reuptake Inhibitor Start: 02-21-2022 End: 06-20-2024 take 2 tablets by mouth once daily Citalopram 10 mg Tablet Discontinued 20 mg PO DAILY February 21, 2022 12:00am June 20, 2024 6:09pm MOOD Start: 02-21-2022 take 20 mg by mouth once daily Citalopram Active 20 MG PO DAILY February 21, 2022 12:00am Start: 02-21-2022 take 10 mg by mouth once daily Citalopram Active 10 MG PO DAILY February 21, 2022 12:00am clopidogrel 75 mg oral tablet (5 sources) [id number] Platelet Inhibitor Start: 06-28-2024 End: 05-30-2025 take 1 tablet by mouth once daily Clopidogrel 75 mg Tablet Discontinued 75 mg PO DAILY 30 30 0 June 28, 2024 12:00am May 30, 2025 9:04am anti platelet doxycycline monohydrate 100 mg oral capsule (4 sources) Tetracycline-class Drug Start: 10-07-2024 End: 12-21-2024 take 1 capsule by mouth twice daily Doxycycline Monohydrate 100 mg capsule Discontinued 100 mg PO TWICE A DAY 14 0 October 07, 2024 1:00am December 21, 2024 10:10am empagliflozin 25 mg oral tablet (4 sources) Sodium-Glucose Cotransporter 2 Inhibitor Start: 05-05-2024 End: 06-20-2024 take 1 tablet by mouth once daily Empagliflozin 25 mg tablet Discontinued 12.5 mg PO DAILY May 05, 2024 12:00am June 20, 2024 6:09pm Klayesta 100,000 units/g topical powder (2 sources) Start: 11-11-2024 Klayesta 100,000 units/g topical powder APPLY TWICE A DAY FOR 14 DAYS CLEANSE AFFECTED SKIN WITH SOAP/WATER, PAT DRY AND THEN APPLY POWDER Start Date: 11/11/24 Status: Ordered Repeat number: 1 mupirocin 0.02 mg/mg topical ointment (6 sources) RNA Synthetase Inhibitor Antibacterial Start: 11-05-2022 End: 06-20-2024 Mupirocin 2 % ointment Discontinued 1 NMA TOPICAL TWICE A DAY November 05, 2022 1:00am June 20, 2024 6:11pm to affected open areas nitrofurantoin, macrocrystals 100 mg oral capsule (4 sources) Nitrofuran Antibacterial Start: 05-05-2024 End: 05-07-2024 take 1 capsule by mouth twice daily at mealtime Nitrofurantoin Macrocrystal (Macrodantin) 100 mg capsule Discontinued 100 mg PO TWICE A DAY May 05, 2024 12:00am May 07, 2024 8:58am must administer with a meal/food pantoprazole 20 mg delayed release oral tablet (14 sources) Proton Pump Inhibitor Start: 04-29-2022 End: 05-30-2025 take 1 tablet by mouth once daily Pantoprazole 20 mg Tablet,Delayed Release (Dr/Ec) Discontinued 20 mg PO DAILY April 29, 2022 12:00am May 30, 2025 9:06am GERD predniSONE 10 mg oral tablet (20 sources) Start: 12-24-2024 End: 05-30-2025 take 4 tablets by mouth once daily, then take 3 tablets by mouth once daily, then take 2 tablets by mouth once daily, then take 1 tablet by mouth once daily, then take 0.5 tablet by mouth once daily Prednisone 10 mg tablet Discontinued 10 mg PO DAILY 32 0 December 24, 2024 1:00am May 30, 2025 9:06am Take 4 tablets daily for 3 days then 3 tablets daily for 3 days then 2 tablets daily for 3 days then 1 tablet daily for 3 days then half tablet daily for 4 days Start: 11-11-2024 Deltasone 20mg tab (TAPER) PRN Rash, TAKE 2 TABS (2 X 20 MG) ORALLY DAILY Start Date: 11/11/24 Status: Ordered Repeat number: 1 Start: 10-05-2024 End: 05-30-2025 take 2 tablets by mouth once daily Prednisone 20 mg tablet Discontinued 40 mg PO DAILY 10 October 05, 2024 1:00am May 30, 2025 9:06am Start: 06-28-2024 End: 10-03-2024 take 2 tablets by mouth at breakfast for chronic obstructive pulmonary disease Prednisone 20 mg Tablet Discontinued 40 mg PO WITH BREAKFAST 10 5 0 June 28, 2024 12:00am October 03, 2024 3:39pm Complete additional 5 day burst steroid therapy for COPD Exacerbation Start: 05-07-2024 End: 06-20-2024 take 2 tablets by mouth once daily Prednisone 20 mg tablet Discontinued 40 mg PO DAILY 10 5 0 May 07, 2024 12:00am June 20, 2024 6:11pm Start: 10-30-2022 End: 04-29-2023 take 1 tablet by mouth once daily Prednisone 20 mg tab let Discontinued 20 mg PO DAILY 5 October 30, 2022 1:00am April 29, 2023 9:23am Start: 05-31-2022 End: 08-21-2022 Prednisone 10 mg tablet Discontinued 0 mg PO DAILY Taper: Frequency: BREAKFAST Days: 3 Hours: 0 Dose: 40 Frequency: BREAKFAST Days: 3 Hours: 0 Dose: 30 Frequency: BREAKFAST Days: 3 Hours: 0 Dose: 20 Frequency: BREAKFAST Days: 3 Hours: 0 Dose: 10 30 12 May 31, 2022 12:00am August 21, 2022 8:59am Please contact the information source for Taper Schedule details. Start: 05-31-2022 End: 08-21-2022 Prednisone Discontinued 0 MG PO DAILY 30 May 31, 2022 12:00am August 21, 2022 8:59am Start: 04-29-2022 End: 05-31-2022 take 2 tablets by mouth once daily Prednisone 20 mg tablet Discontinued 40 mg PO DAILY 14 7 0 April 29, 2022 12:00am May 31, 2022 10:33am COPD Start: 04-29-2022 End: 05-31-2022 take 40 mg by mouth once daily Prednisone Discontinued 40 MG PO DAILY 14 7 April 29, 2022 12:00am May 31, 2022 10:33am Start: 03-24-2022 take 20 mg by mouth once daily Prednisone Active 20 MG PO DAILY March 24, 2022 10:19am Start: 01-14-2022 End: 03-24-2022 take 1 tablet by mouth once daily Prednisone 50 mg tab let Discontinued 50 mg PO DAILY 5 5 0 January 14, 2022 1:00am March 24, 2022 10:19am simethicone 80 mg oral capsule (17 sources) Start: 01-14-2022 End: 04-29-2023 take 1 tablet by mouth four times daily Simethicone 80 mg Tablet Discontinued 80 mg PO 4 TIMES DAILY January 14, 2022 1:00am April 29, 2023 9:23am tamsulosin hydrochloride 0.4 mg oral capsule (19 sources) alpha-Adrenergic [place] Start: 12-23-2021 End: 05-30-2025 take 1 capsule by mouth at bedtime Tamsulosin 0.4 mg Capsule Discontinued 0.4 mg PO AT BEDTIME December 23, 2021 1:00am May 30, 2025 9:06am urinary retention 60 actuat tiotropium 0.0025 mg/actuat inhalation spray (17 sources) Anticholinergic Start: 01-14-2022 End: 05-05-2024 take 2.5 ug by inhalation once daily Tiotropium [place] (Spiriva Respimat) 2.5 mcg/actuation Mist Discontinued 2 NMA INHALATION DAILY January 14, 2022 1:00am May 05, 2024 10:58pm Start: 01-14-2022 take 1 puff(s) by in halation once daily Tiotropium [place] (Spiriva Respimat) 2.5 mcg/actuation Mist Active 2 PUFF INHALATION DAILY January 14, 2022 1:00am Problems Active Problems Problem Classification Problem Date Documented Da te Episodic/Chronic Abdominal pain (20 sources) Abdominal pain; Translations: [Unspecified abdominal pain] Episodic Allergic reactions (20 sources) Inflammatory dermatosis; Translations: [Dermatitis, unspecified] 08-13-2015 Episodic Aortic; peripheral; and visceral artery aneurysms (20 sources) Abdominal aortic aneurysm; Translations: [Abdominal aortic aneurysm, without rupture] 01-22-2022 Chronic Bacterial infection; unspecified site (4 sources) Bacteremia caused by Gram-negative bacteria; Translations: [Bacteremia] 07-06-2024 Episodic Cancer of prostate (11 sources) Primary malignant neoplasm of prostate; Translations: [Malignant neoplasm of prostate] Chronic Cardiac dysrhythmias (7 sources) Atrial fibrillation; Translations: [Unspecified atrial fibrillation] Onset: 5 12-21-2024 Chronic Cardiac dysrhythmias (4 sources) ECG: sinus bradycardia; Translations: [Bradycardia, unspecified] 07-12-2024 Episodic Chronic obstructive pulmonary disease and bronchiectasis (20 sources) Chronic obstructive lung disease; Translations: [Chronic obstructive pulmonary disease, unspecified] Onset: Chronic Chronic obstructive pulmonary disease and bronchiectasis (13 sources) Bronchitis; Translations: [Bronchitis, not specified as acute or chronic] Episodic Coagulation and hemorrhagic disorders (17 sources) Platelet count below reference range; Translations: [Thrombocytopenia, unspecified] 08-13-2015 Chronic Complication of device; implant or graft (4 sources) Obstructed indwelling urinary catheter; Translations: [Other mechanical complication of indwelling urethral catheter, initial encounter] 06-26-2024 Episodic Diabetes mellitus with complications (18 sources) Hyperglycemia due to type 2 diabetes mellitus; Translations: [Type 2 diabetes mellitus with hyperglycemia] Onset: 5 06-13-2024 Chronic Diabetes mellitus without complication (20 sources) Diabetes mellitus; Translations: [Type 2 diabetes mellitus without complications] Chronic Diseases of white blood cells (17 sources) Leukocytosis; Translations: [Elevated white blood cell count, unspecified] 08-13-2015 Chronic Disorders of lipid metabolism (17 sources) Dyslipidemia; Translations: [Hyperlipidemia, unspecified] 08-13-2015 Chronic Esophageal disorders (17 sources) Gastroesophageal reflux disease; Translations: [Gastro-esophageal reflux disease without esophagitis] 08-13-2015 Chronic Essential hypertension (19 sources) Hypertensive disorder; Translations: [Essential (primary) hypertension] Onset: 5 08-13-2015 Chronic Headache; including migraine (3 sources) Acute headache; Translations: [Acute intractable headache] 05-30-2025 Episodic Headache; including migraine (1 source) Headache; including migraine; Translations: [Headache, unspecified] Onset: Hyperplasia of prostate (2 sources) Benign prostatic hyperplasia with lower urinary tract symptoms; Translations: [Benign prostatic hyperplasia with lower urinary tract symptoms] Onset: Chronic Immunizations and screening for infectious disease (17 sources) Patient encounter status; Translations: [Encounter for screening for COVID-19] 06-12-2023 Episodic Malaise and fatigue (4 sources) Asthenia; Translations: [Weakness] 10-03-2024 Episodic Osteoarthritis (17 sources) Arthritis; Translations: [Unspecified osteoarthritis, unspecified site] 08-13-2015 Chronic Other and ill-defined heart disease (4 sources) Left ventricular systolic dysfunction; Translations: [Other ill-defined heart diseases] 07-06-2024 Chronic Other and ill-defined heart disease (5 sources) Left ventricular cardiac dysfunction; Translations: [Heart disease, unspecified] 12-21-2024 Chronic Other and ill-defined heart disease (1 source) Heart disease, unspecified; Translations: [Heart disease, unspecified] Onset: Chronic Other and unspecified benign neoplasm (8 sources) History of polyp of colon; Translations: [Personal history of colonic polyps] 08-21-2022 Episodic Other and unspecified benign neoplasm (3 sources) Personal history of colonic polyps; Translations: [Personal history of colonic polyps] Episodic Other and unspecified benign neoplasm (5 sources) Lipoma of back; Translations: [Benign lipomatous neoplasm of skin and subcutaneous tissue of trunk] 04-29-2023 Episodic Other and unspecified benign neoplasm (2 sources) Benign lipomatous neoplasm of skin and subcutaneous tissue of trunk; Translations: [Lipoma of other specified sites] 04-29-2023 Episodic Other gastrointestinal disorders (16 sources) Swollen abdomen; Translations: [Abdominal distension (gaseous)] 02-20-2022 Episodic Other gastrointestinal disorders (9 sources) Abdominal distension (gaseous); Translations: [Flatulence, eructation, and gas pain] Episodic Other gastrointestinal disorders (8 sources) Diarrhea; Translations: [Diarrhea, unspecified] 08-21-2022 Episodic Other gastrointestinal disorders (8 sources) Constipation; Translations: [Constipation, unspecified] 08-21-2022 Episodic Other gastrointestinal disorders (4 sources) Acute constipation; Translations: [Constipation, unspecified] 10-15-2024 Episodic Other gastrointestinal disorders (1 source) Abdominal distension ; Translations: [Abdominal distension (gaseous)] 02-20-2022 Episodic Other hereditary and degenerative nervous system conditions (17 sources) Essential tremor; Translations: [Essential tremor] 08-13-2015 Chronic Other injuries and conditions due to external causes (4 sources) Angioedema; Translations: [Angioneurotic edema, initial encounter] 05-15-2024 Episodic Other liver diseases (4 sources) Enzyme level - finding; Translations: [Elevated transaminase measurement] 07-06-2024 Episodic Other lower respiratory disease (20 sources) Dyspnea; Translations: [Dyspnea, unspecified] 08-21-2022 Episodic Other lower respiratory disease (20 sources) Hypoxia; Translations: [Hypoxemia] 10-04-2021 Episodic Other lower respiratory disease (5 sources) Tachypnea; Translations: [Tachypnea, not elsewhere classified] 10-03-2024 Episodic Other non-traumatic joint disorders (7 sources) Swollen ankle region; Translations: [Effusion, left ankle] 10-21-2022 Episodic Other nutritional; endocrine; and metabolic disorders (4 sources) Hyperbilirubinemia; Translations: [Other disorders of bilirubin metabolism] 07-06-2024 Chronic Other nutritional; endocrine; and metabolic disorders (20 sources) H/O: diabetes mellitus; Translations: [Personal history of other endocrine, nutritional and metabolic disease] 12-31-2021 Episodic Other screening for suspected conditions (not mental disorders or infectious disease) (5 sources) Prolonged QT interval; Translations: [Abnormal electrocardiogram [ECG] [EKG]] Onset: 5 07-12-2024 Episodic Other skin disorders (17 sources) Tongue swelling; Translations: [Localized swelling, mass and lump, head] 08-13-2015 Episodic Other skin disorders (5 sources) Sebaceous cyst of skin; Translations: [Sebaceous cyst] 04-29-2023 Episodic Other skin disorders (3 sources) Sebaceous cyst; Translations: [Sebaceous cyst] 04-29-2023 Episodic Other upper respiratory disease (10 sources) Acute bronchospasm; Translations: [Acute bronchospasm] 06-08-2022 Episodic Other upper respiratory disease (3 sources) Acute bronchospasm; Translations: [Acute bronchospasm] Episodic Other upper respiratory infections (17 sources) Acute maxillary sinusitis; Translations: [Acute maxillary sinusitis, unspecified] 06-12-2023 Episodic Residual codes; unclassified (8 sources) Sleep apnea; Translations: [Sleep apnea, unspecified] 08-21-2022 Chronic Residual codes; unclassified (6 sources) Edema of left lower leg; Translations: [Localized edema] 11-07-2022 Episodic Residual codes; unclassified (4 sources) Altered mental status; Translations: [Altered mental status, unspecified] 07-12-2024 Episodic Residual codes; unclassified (4 sources) H/O: neoplasm; Translations: [Other specified postprocedural states] 07-21-2023 Episodic Respiratory failure; insufficiency; arrest (adult) (20 sources) Yzbtt-nq-puyrbcl respiratory failure; Translations: [Acute and chronic respiratory failure, unspecified whether with hypoxia or hypercapnia] Chronic Respiratory failure; insufficiency; arrest (adult) (17 sources) Acute respiratory failure; Translations: [Acute respiratory failure with hypoxia] 10-26-2021 Episodic Skin and subcutaneous tissue infections (12 sources) Impetigo bullosa; Translations: [Bullous impetigo] 11-13-2022 Episodic Substance-related disorders (17 sources) Tobacco dependence syndrome; Translations: [Nicotine dependence, unspecified, uncomplicated] 08-13-2015 Chronic Superficial injury; contusion (6 sources) Blister of foot; Translations: [Blister (nonthermal), left foot, initial encounter] 11-07-2022 Episodic Unclassified (1 source) Abdominal aortic aneurysm, without rupture, unspecified; Translations: [Abdominal aortic aneurysm, without rupture, unspecified] Onset: Urinary tract infections (12 sources) Urinary tract infectious disease; Translations: [Urinary tract infection, site not specified] 05-05-2024 Episodic Viral infection (4 sources) Viral disease; Translations: [Viral infection, unspecified] 10-03-2024 Episodic Past or Other Problems Problem Classification Problem Date Documented Da te Episodic/Chronic Fluid and electrolyte disorders (20 sources) Lactic acidosis; Translations: [Acidosis] Onset: 02-09-2025 1 Episodic Genitourinary symptoms and ill-defined conditions (18 sources) Blood in urine; Translations: [Hematuria, unspecified] Onset: 09-25-2024 06-13-2024 Episodic Other lower respiratory disease (1 source) Tachypnea, not elsewhere classified; Translations: [Tachypnea, not elsewhere classified] Onset: 02-09-2025 Episodic Other lower respiratory disease (2 sources) Shortness of breath; Translations: [Shortness of breath] Onset: 10-05-2024 Episodic Results Test Name Value Interpretation Reference Range Facility Magnetic resonance imaging r eportOrdered By: Carlos Hare on 08-13-2025 Study report [facility] [address] [place], [place] [address] Brain W/WO Contrast MR#: [id number] Acct: [id number] Name: NAUN GARCÍA Rep #: [id number] : 1950 M 74 From: Merritt Hare MD PCP: [facility] Status: REG CLI Study:Brain W/WO Contrast Date of Exam: 08/10/25 Exam# [id number] Ordering Dr: Becka Pope NP PROCEDURE: BRAIN W/WO CONTRAST 08/10/2025 REASON FOR EXAM: HEADACHE,DIPLOPIA NEW ONSET TECHNIQUE: Procedure Code: MRIBRWW Modality: MR Procedure: BRAIN W/WO CONTRAST MRI of the brain is performed using multiplanar multisequence images. In addition, thin-section images through the orbits were performed prior to and after the intravenous administration of contrast. CONTRAST: Clariscan VOLUME: 17 mL COMPARISON: Available priors FINDINGS: BRAIN: Moderate to severe small-vessel ischemic changes. No restricted diffusion to indicate acute infarction. No intracranial mass or hemorrhage. No midline shift or extra-axial fluid collection. No sulcal effacement. No cerebellar tonsillar ectopia. The central arterial and venous flow voids are patent. Following contrast, there isno abnormal pattern of enhancement seen within the brain orbits or midbrain. VENTRICLES: No hydrocephalus. ORBITS: There is abnormal T2 signal and edema involving the fat surrounding the left optical nerve with mild induration of the adjacent fat and mild enhancement within the nerve. SINUSES AND MASTOIDS: The sinuses and mastoid air cells are clear. BONES: No focal osseous lesion. MRI/Brain W/WO Contrast IMPRESSION: Left optic neuritis. Diffuse small-vessel ischemic changes. No acute intracranial abnormality. Reading Location: [facility] CC: Tash Pope NP; [facility] ~ Pool Installer: Signed [facility] Brain W/WO Contraston 2024 Brain W/WO Contrast Normal [facility] PSA,Total- Diagnosticon 06-09 PSA, DIAGNOSTIC 10.40 ng/mL High 0.00-4.00 [facility] Comment on above: Result Comment: This test was performed using the [employer] tPSAmethod. Measured values of a patient??sample can varydepending on the testing procedure used. PSA valuesdetermined on patient samples by different testingprocedures cannot be used interchangeably. If there is achange in PSA assays while monitoring therapy, sequentialtesting should be performed to confirm baseline values. Performed By: #### L 501.9940 ####[facility] [address] [place], [address] Absolute lymphocyte countOrd ered By: Facundo Sotomayor on 05-30-2025 Lymphocytes Auto (Unsp spec) [#/Vol] 1.61 10*3/uL 0.83-4.51 [facility] Absolute neutrophil countOrd ered By: Facundo Sotomayor on 05-30-2025 Neutrophils (Bld) [#/Vol] 11.5 10*3/uL High 2.0-7.7 [facility] Anion gap in Serum or Plasma Ordered By: Facundoedwin Sotomayor on 05-30-2025 Anion gap [Moles/Vol] 11 mmol/L 5-15 [facility] Automated lymphocyte count a s percentage of total leukocytesOrdered By: Facundoedwin Sotomyaor on 05-30-2025 Lymphocytes/100 WBC Auto (Unsp spec) 11.1 % Low 19-41 [facility] BUN/creatinine ratioOrdered By: Facundoedwin Sotomayor on 05-30-2025 Urea nitrogen/Creatinine [Mass ratio] 14.2 mg/mg 10-20 [facility] Basic Metabolic Profile (BMP )on 05-30-2025 BUN/CRE 14.2 RATIO Normal 10-20 [facility] Comment on above: Performed By: #### L 100.0100, L101.9900, L500.2500 ####[facility] [address] [place], [address] Calcium [Mass/Vol] 9.7 mg/dL Normal 7.6-11.0 [facility] Comment on above: Performed By: #### L 100.0100, L101.9900, L500.2500 ####[facility] [address] [place], [address] Chloride [Moles/Vol] 99 mmol/L Normal 98-108 [facility] Comment on above: Performed By: #### L 100.0100, L101.9900, L500.2500 ####[facility] [address] [place], [address] CO2 [Moles/Vol] 24.7 mmol/L Normal 21.0-32.0 [facility] Comment on above: Performed By: #### L 100.0100, L101.9900, L500.2500 ####[facility] [address] [place], [address] Creatinine [Mass/Vol] 0.87 mg/dL Normal 0.70-1.20 [facility] Comment on above: Performed By: #### L 100.0100, L101.9900, L500.2500 ####[facility] [address] [place], [address] ECRCL 125.75 ml/min Normal 50-250 [facility] Comment on above: Performed By: #### L 100.0100, L101.9900, L500.2500 ####[facility] [address] [place], [address] GAP 11 Normal 5-15 [facility] Comment on above: Performed By: #### L 100.0100, L101.9900, L500.2500 ####[facility] [address] [place], [address] GFR/1.73 sq M.predicted among non-blacks MDRD (S/P/Bld) [Vol rate/Area] 90 mL/min/{1.73_m2} Normal >60 [facility] Comment on above: Result Comment: mL/m in/1.73m2 CKD-EPI Creatinine Equation (2020) Performed By: #### L 100.0100, L101.9900, L500.2500 ####[facility] [address] [place], [address] Glucose [Mass/Vol] 274 mg/dL High 70-99 [facility] Comment on above: Performed By: #### L 100.0100, L101.9900, L500.2500 ####[facility] [address] [place], [address] Potassium [Moles/Vol] 4.4 mmol/L Normal 3.3-5.1 [facility] Comment on above: Performed By: #### L 100.0100, L101.9900, L500.2500 ####[facility] [address] [place], [address] Sodium [Moles/Vol] 134 mmol/L Normal 133-145 [facility] Comment on above: Performed By: #### L 100.0100, L101.9900, L500.2500 ####[facility] [address] [place], [address] Urea nitrogen [Mass/Vol] 12 mg/dL Normal 4-19 [facility] Comment on above: Performed By: #### L 100.0100, L101.9900, L500.2500 ####[facility] [address] [place], [address] Basophil percentageOrdered B y: Facundo Sotomayor on 05-30-2025 Basophils/100 WBC (Bld) 0.3 % 0-1 [facility] Brain/Head without Contrasto n 05-30-2025 Brain/Head without Contrast Normal [facility] CBC W/Diff, Automatedon 05-10 Absolute Lymph 1.61 X10 3/uL Normal 0.83-4.51 [facility] Comment on above: Performed By: #### L 100.0100, L101.9900, L500.2500 ####[facility] [address] [place], [address] Absolute Neut 11.5 X10 3/uL High 2.0-7.7 [facility] Comment on above: Performed By: #### L 100.0100, L101.9900, L500.2500 ####[facility] [address] [place], [address] Basophils/100 WBC (Bld) 0.3 % Normal 0-1 [facility] Comment on above: Performed By: #### L 100.0100, L101.9900, L500.2500 ####[facility] [address] [place], [address] Eosinophils/100 WBC (Bld) 1.0 % Normal 0-5 [facility] Comment on above: Performed By: #### L 100.0100, L101.9900, L500.2500 ####[facility] [address] [place], [address] Erythrocyte distribution width (RBC) [Ratio] 13.6 % Normal 11.6-14.6 [facility] Comment on above: Performed By: #### L 100.0100, L101.9900, L500.2500 ####[facility] [address] [place], [address] Hematocrit (Bld) [Volume fraction] 37.4 % Low 40-54 [facility] Comment on above: Performed By: #### L 100.0100, L101.9900, L500.2500 ####[facility] [address] [place], [address] Hemoglobin (Bld) [Mass/Vol] 12.1 g/dL Low 13.0-16.5 [facility] Comment on above: Performed By: #### L 100.0100, L101.9900, L500.2500 ####[facility] [address] [place], [address] IG% 0.900 Normal 0.0-0.9 [facility] Comment on above: Result Comment: IG% - Immature Granulocytes (promyelocytes, myelocytes andmetamyelocytes) > 1% indicates that a LEFT SHIFT is Present. Performed By: #### L 100.0100, L101.9900, L500.2500 ####[facility] [address] [place], [address] Lymphocytes/100 WBC (Bld) 11.1 % Low 19-41 [facility] Comment on above: Performed By: #### L 100.0100, L101.9900, L500.2500 ####[facility] [address] [place], [address] MCH (RBC) [Entitic mass] 29.6 pg Normal 27.0-32.0 [facility] Comment on above: Performed By: #### L 100.0100, L101.9900, L500.2500 ####[facility] [address] [place], [address] MCHC (RBC) [Mass/Vol] 32.4 g/dL Normal 32-36 [facility] Comment on above: Performed By: #### L 100.0100, L101.9900, L500.2500 ####[facility] [address] [place], [address] MCV (RBC) [Entitic vol] 91.4 fL Normal 80-94 [facility] Comment on above: Performed By: #### L 100.0100, L101.9900, L500.2500 ####[facility] [address] [place], [address] Monocytes/100 WBC (Bld) 7.4 % Normal 0-10 [facility] Comment on above: Performed By: #### L 100.0100, L101.9900, L500.2500 ####[facility] [address] [place], [address] Neutrophils/100 WBC (Bld) 79.3 % High 47-70 [facility] Comment on above: Performed By: #### L 100.0100, L101.9900, L500.2500 ####[facility] [address] [place], [address] Nucleated RBC (Bld) [#/Vol] 0 10*3/uL Normal 0-5 [facility] Comment on above: Performed By: #### L 100.0100, L101.9900, L500.2500 ####[facility] [address] [place], [address] Platelet mean volume (Bld) [Entitic vol] 9.2 fL Normal 6.2-12.0 [facility] Comment on above: Performed By: #### L 100.0100, L101.9900, L500.2500 ####[facility] [address] [place], [address] Platelets (Bld) [#/Vol] 605 10*3/uL High 150-450 [facility] Comment on above: Performed By: #### L 100.0100, L101.9900, L500.2500 ####[facility] [address] [place], [address] RBC (Bld) [#/Vol] 4.09 10*6/uL Low 4.6-6.2 [facility] Comment on above: Performed By: #### L 100.0100, L101.9900, L500.2500 ####[facility] [address] [place], [address] RDW SD 46.1 fl High 35.1-43.9 [facility] Comment on above: Performed By: #### L 100.0100, L101.9900, L500.2500 ####[facility] [address] [place], [address] WBC (Bld) [#/Vol] 14.5 10*3/uL High 4.4-11.0 [facility] Comment on above: Performed By: #### L 100.0100, L101.9900, L500.2500 ####[facility] [address] [place], [address] Carbon dioxide, total [Moles /volume] in Central venous bloodOrdered By: Facundo Sotomayor on 05-30-2025 CO2 [Moles/Vol] 24.7 mmol/L 21.0-32.0 [facility] Chloride assayOrdered By: Ug o Sotomayor on 05-30-2025 Chloride [Moles/Vol] 99 mmol/L 98-108 [facility] Emergency Department Summary on 05-30-2025 Emergency Department Summary Normal [facility] Eosinophil percentageOrdered By: Facundo Sotomayor on 05-30-2025 Eosinophils/100 WBC (Bld) 1.0 % 0-5 [facility] Erythrocyte Sed Rateon 05-30 SED RATE 36 mm/hr High 0-20 [facility] Comment on above: Performed By: #### L 100.0100, L101.9900, L500.2500 ####[facility] [address] [place], [address] Erythrocyte distribution wid th ratioOrdered By: Facundo Sotomayor on 05-30-2025 Erythrocyte distribution width (RBC) [Ratio] 13.6 % 11.6-14.6 [facility] Erythrocyte distribution wid th standard deviationOrdered By: Facundo Sotmoayor on 05-30-2025 Erythrocyte distribution width (RBC) [Ratio] 46.1 fl High 35.1-43.9 [facility] Erythrocyte sedimentation ra teOrdered By: Facundoedwin Sotomayor on 05-30-2025 ESR (Bld) [Velocity] 36 mm/h High 0-20 [facility] Glomerular filtration rate ( GFR) estimation/1.73 sq m using serum, plasma, or whole bOrdered By: Facundoedwin Sotomayor on 05-30-2025 GFR/1.73 sq M.predicted among non-blacks MDRD (S/P/Bld) [Vol rate/Area] 90 mL/min/{1.73_m2} >60 [facility] Comment on above: mL/min/1.73m2 CKD-EP I Creatinine Equation (2020) Hematocrit Auto (Bld) [Volum e fraction]Ordered By: Facundoedwin Sotomayor on 05-30-2025 Hematocrit (Bld) [Volume fraction] 37.4 % Low 40-54 [facility] Hemoglobin measurementOrdere d By: Facundoedwin Sotomayor on 05-30-2025 Hemoglobin (Bld) [Mass/Vol] 12.1 g/dL Low 13.0-16.5 [facility] Immature granulocytes/100 WB C Auto (Bld)Ordered By: Facundoedwin Sotomayor 05-30-2025 Immature granulocytes/100 WBC (Bld) 0.900 % 0.0-0.9 [facility] Comment on above: IG% - Immature Granu locytes (promyelocytes, myelocytes and metamyelocytes) > 1% indicates that a LEFT SHIFT is Present. MCV (mean corpuscular volume ) determinationOrdered By: Facundo Sotomayor on 05-30-2025 MCV (RBC) [Entitic vol] 91.4 fL 80-94 [facility] Mean corpuscular hemoglobin (MCH) determinationOrdered By: Facundoedwin Sotomayor 05-30-2025 MCH (RBC) [Entitic mass] 29.6 pg 27.0-32.0 [facility] Mean corpuscular hemoglobin concentration (MCHC) determinationOrdered By: Facundoedwin Sotomayor 05-30-2025 MCHC (RBC) [Mass/Vol] 32.4 g/dL 32-36 [facility] Mean platelet volume determi nationOrdered By: Facundo Sotomayor on 05-30-2025 Platelet mean volume (Bld) [Entitic vol] 9.2 fL 6.2-12.0 [facility] Monocyte percentageOrdered B y: Facundo Sotomayor on 05-30-2025 Monocytes/100 WBC (Bld) 7.4 % 0-10 [facility] Neutrophil percentageOrdered By: Facundo Sotomayor on 05-30-2025 Neutrophils/100 WBC (Bld) 79.3 % High 47-70 [facility] Nucleated red blood cell per centageOrdered By: Facundo Sotomayor on 05-30-2025 Nucleated RBC/100 WBC (Bld) [Ratio] 0 % 0-5 [facility] Platelet countOrdered By: Baron Sotomayor on 05-30-2025 Platelets (Bld) [#/Vol] 605 10*3/uL High 150-450 [facility] Potassium measurement (mass/ volume)Ordered By: Facundo Sotomayor on 05-30-2025 Potassium (Unsp spec) [Mass/Vol] 4.4 mmol/L 3.3-5.1 [facility] RBC Auto (Bld) [#/Vol]Ordere d By: Facundo Sotomayor on 05-30-2025 RBC (Bld) [#/Vol] 4.09 10*6/uL Low 4.6-6.2 [facility] Serum creatinine measurement (mass/volume)Ordered By: Facundo Sotomayor on 05-30-2025 Creatinine [Mass/Vol] 0.87 mg/dL 0.70-1.20 [facility] Serum glucose measurement (m ass/volume)Ordered By: Facundo Sotomayor on 05-30-2025 Glucose [Mass/Vol] 274 mg/dL High 70-99 [facility] Serum or plasma calcium odette urement (mass/volume)Ordered By: Facundo Sotomayor on 05-30-2025 Calcium [Mass/Vol] 9.7 mg/dL 7.6-11.0 [facility] Serum or plasma urea nitroge n measurement (mass/volume)Ordered By: Facundo Sotomayor on 05-30-2025 Urea nitrogen [Mass/Vol] 12 mg/dL 4-19 [facility] Sodium levelOrdered By: Facundo Sotomayor on 05-30-2025 Sodium [Moles/Vol] 134 mmol/L 133-145 [facility] White blood cell (WBC) count Ordered By: Facundo Sotomayor on 05-30-2025 WBC (Bld) [#/Vol] 14.5 10*3/uL High 4.4-11.0 [facility] MR/BMS.BVSon 03-01-2025 MR/BMS.BVS Normal [facility] AAA Screeningon 01-19-2025 AAA Screening Normal [facility] Cardiovascular ultrasound re portOrdered By: Karlos Osorio on 01-19-2025 Study report [facility] [address] [place] [address] AAA Screening 01/19/25 0901 MR#: [id number] Acct: [id number] Name: NAUN GARCÍA Rep #:[id number] : 1950 74 From: Karlos Ibarra Attending Dr: Dr. Karlos Osorio MD S tatus: REG CLI Ordering Dr: Karlos Osorio MD Date: Location: CVS Sex: M C Admitted: Reason For Study Reason For Study: Screening Aorta Measurements Aorta Doppler Measurements Proximal aorta measures1.89x1.89cm. in cross-sectional axis.Peak systolic flow velocities within the proximal aorta Proximal aorta measures1.89cm. in longitudinal axis. measure 54.2 cm/sec. Mid aorta measures3.33x3.28cm. in cross-sectional axis. Peak systolic flow velocities within the mid aorta measure Mid aorta measures3.33cm. in longitudinal axis. 26.3 cm/sec. Distal aorta measures1.99x1.99cm. in cross-sectional axis. Peak systolic flow velocities within the distal aorta Distal aorta measures1.88cm. in longitudinal axis. measure 51.5 cm/sec. Left Iliac Artery Left iliac artery measures 1.23 cm. in the longitudinal axis. Left iliac artery measures 1.21x1.21 cm. in the cross- sectional axis. Peak systolic velocity in the left iliac artery measures 105.2 cm/sec. Right Iliac Artery Right iliac artery measures 1.29 cm. in the longitudinal axis. Right iliac artery measures 1.37x1.37 cm. in the cross- sectional axis. Peak systolic velocity in the right iliac artery measures 63.6 cm/sec. Procedure Aorta IVC Iliac vasculature or bypass grafts 55215. Exam performed in department. 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 Karlos Osorio MD; [facility] ~ Date Dictated: 01/19/25900 Date Transcribed: 01/19/251758 Pool Installer: Signed [facility] Work Phone: Absolute neutrophil countOrd ered By: Allen Caro on 12-24-2024 Neutrophils (Bld) [#/Vol] 17.0 10*3/uL High 2.0-7.7 [facility] Basic Metabolic Profile (BMP )on 12-24-2024 BUN/CRE 24.4 RATIO High 10-20 [facility] Comment on above: Performed By: #### L 500.2500, L100.0100 ####[facility] [address] [place], [address] CA,Total 9.1 mg/dL Normal 8.5-10.1 [facility] Comment on above: Performed By: #### L 500.2500, L100.0100 ####[facility] [address] [place], [address] Chloride [Moles/Vol] 103 mmol/L Normal 98-107 [facility] Comment on above: Performed By: #### L 500.2500, L100.0100 ####[facility] [address] [place], [address] CO2 [Moles/Vol] 24.0 mmol/L Normal 21.0-32.0 [facility] Comment on above: Performed By: #### L 500.2500, L100.0100 ####[facility] [address] [place], [address] Creatinine [Mass/Vol] 0.94 mg/dL Normal 0.70-1.30 [facility] Comment on above: Result Comment: The validity of the calculated GFR GFRAA in patients over70 years has not been determined. Clinical correlation isessential. Performed By: #### L 500.2500, L100.0100 ####[facility] [address] [place], [address] ECRCL 72.32 ml/min Normal [facility] Comment on above: Performed By: #### L 500.2500, L100.0100 ####[facility] [address] [place], [address] EST GFR - AA 100 mL/min Normal >60 [facility] Comment on above: Result Comment: Afri can Burmese GFR Calc Performed By: #### L 500.2500, L100.0100 ####[facility] [address] [place], [address] GAP 8 Normal 5-15 [facility] Comment on above: Performed By: #### L 500.2500, L100.0100 ####[facility] [address] [place], [address] GFR/1.73 sq M.predicted among non-blacks MDRD (S/P/Bld) [Vol rate/Area] 83 mL/min/{1.73_m2} Normal >60 [facility] Comment on above: Result Comment: Non- GFR Calc Performed By: #### L 500.2500, L100.0100 ####[facility] [address] [place], [address] Glucose [Mass/Vol] 297 mg/dL High 74-106 [facility] Comment on above: Result Comment: Gluc ose result greater than or equal to 200 mg/dLsuggests DIABETES MELLITUS per A.D.A. criteria. Performed By: #### L 500.2500, L100.0100 ####[facility] [address] [place], [address] Potassium [Moles/Vol] 4.1 mmol/L Normal 3.5-5.1 [facility] Comment on above: Performed By: #### L 500.2500, L100.0100 ####[facility] [address] [place], [address] Sodium [Moles/Vol] 134 mmol/L Low 136-145 [facility] Comment on above: Performed By: #### L 500.2500, L100.0100 ####[facility] [address] [place], [address] Urea nitrogen [Mass/Vol] 23 mg/dL High 7-18 [facility] Comment on above: Performed By: #### L 500.2500, L100.0100 ####[facility] [address] [place], [address] Basophil percentageOrdered B y: Allen Caro on 12-24-2024 Basophils/100 WBC (Bld) 0.3 % 0-1 [facility] Bedside Glucoseon 12-24-2024 FINGERSTICK GLU 323 mg/dL High 74-106 [facility] Comment on above: Result Comment: SARAH GEMENT OF PATIENT CARE PER NURSING PROTOCOL Performed By: #### L 501.080 ####[facility] [address] [place], [address] FINGERSTICK GLU 296 mg/dL High 74-106 [facility] Comment on above: Result Comment: SARAH GEMENT OF PATIENT CARE PER NURSING PROTOCOL Performed By: #### L 501.080 ####[facility] [address] [place], [address] FINGERSTICK GLU 370 mg/dL High 74-106 [facility] Comment on above: Result Comment: SARAH GEMENT OF PATIENT CARE PER NURSING PROTOCOL Performed By: #### L 501.080 ####[facility] [address] [place], [address] Blood urea nitrogen (BUN)/cr eatinine ratioOrdered By: Allen Caro on 12-24-2024 Urea nitrogen/Creatinine [Mass ratio] 24.4 mg/mg High 10-20 [facility] CBC W/Diff, Automatedon 12-10 Absolute Lymph 1.10 X10 3/uL Normal 0.83-4.51 [facility] Comment on above: Performed By: #### L 500.2500, L100.0100 ####[facility] [address] [place], [address] Absolute Neut 17.0 X10 3/uL High 2.0-7.7 [facility] Comment on above: Performed By: #### L 500.2500, L100.0100 ####[facility] [address] [place], [address] Basophils/100 WBC (Bld) 0.3 % Normal 0-1 [facility] Comment on above: Performed By: #### L 500.2500, L100.0100 ####[facility] [address] [place], [address] Eosinophils/100 WBC (Bld) 0.0 % Normal 0-5 [facility] Comment on above: Performed By: #### L 500.2500, L100.0100 ####[facility] [address] [place], [address] Erythrocyte distribution width (RBC) [Ratio] 14.6 % Normal 11.6-14.6 [facility] Comment on above: Performed By: #### L 500.2500, L100.0100 ####[facility] [address] [place], [address] Hematocrit (Bld) [Volume fraction] 40.0 % Normal 40-54 [facility] Comment on above: Performed By: #### L 500.2500, L100.0100 ####[facility] [address] [place], [address] Hemoglobin (Bld) [Mass/Vol] 13.5 g/dL Normal 13.0-16.5 [facility] Comment on above: Performed By: #### L 500.2500, L100.0100 ####[facility] [address] [place], [address] IG% 1.200 High 0.0-0.9 [facility] Comment on above: Result Comment: IG% - Immature Granulocytes (promyelocytes, myelocytes andmetamyelocytes) > 1% indicates that a LEFT SHIFT is Present. Performed By: #### L 500.2500, L100.0100 ####[facility] [address] [place], [address] Lymphocytes/100 WBC (Bld) 5.8 % Low 19-41 [facility] Comment on above: Performed By: #### L 500.2500, L100.0100 ####[facility] [address] [place], [address] MCH (RBC) [Entitic mass] 30.1 pg Normal 27.0-32.0 [facility] Comment on above: Performed By: #### L 500.2500, L100.0100 ####[facility] [address] [place], [address] MCHC (RBC) [Mass/Vol] 33.8 g/dL Normal 32-36 [facility] Comment on above: Performed By: #### L 500.2500, L100.0100 ####[facility] [address] [place], [address] MCV (RBC) [Entitic vol] 89.1 fL Normal 80-94 [facility] Comment on above: Performed By: #### L 500.2500, L100.0100 ####[facility] [address] [place], [address] Monocytes/100 WBC (Bld) 2.8 % Normal 0-10 [facility] Comment on above: Performed By: #### L 500.2500, L100.0100 ####[facility] [address] [place], [address] Neutrophils/100 WBC (Bld) 89.9 % High 47-70 [facility] Comment on above: Performed By: #### L 500.2500, L100.0100 ####[facility] [address] [place], [address] Nucleated RBC (Bld) [#/Vol] 0 10*3/uL Normal 0-5 [facility] Comment on above: Performed By: #### L 500.2500, L100.0100 ####[facility] [address] [place], [address] Platelet mean volume (Bld) [Entitic vol] 10.1 fL Normal 6.2-12.0 [facility] Comment on above: Performed By: #### L 500.2500, L100.0100 ####[facility] [address] [place], [address] Platelets (Bld) [#/Vol] 415 10*3/uL Normal 150-450 [facility] Comment on above: Performed By: #### L 500.2500, L100.0100 ####[facility] [address] [place], [address] RBC (Bld) [#/Vol] 4.49 10*6/uL Low 4.6-6.2 [facility] Comment on above: Performed By: #### L 500.2500, L100.0100 ####[facility] [address] [place], [address] RDW SD 47.4 fl High 35.1-43.9 [facility] Comment on above: Performed By: #### L 500.2500, L100.0100 ####[facility] [address] [place], [address] WBC (Bld) [#/Vol] 18.9 10*3/uL High 4.4-11.0 [facility] Comment on above: Performed By: #### L 500.2500, L100.0100 ####[facility] [address] [place], [address] Carbon dioxide measurementOr dered By: Allen Caro on 12-24-2024 CO2 [Moles/Vol] 24.0 mmol/L 21.0-32.0 [facility] Chloride measurementOrdered By: Allen Caro on 12-24-2024 Chloride [Moles/Vol] 103 mmol/L 98-107 [facility] Discharge Instructionon 12-10 Discharge Instruction Normal [facility] Eosinophil percentageOrdered By: Allen Caro on 12-24-2024 Eosinophils/100 WBC (Bld) 0.0 % 0-5 [facility] Erythrocyte distribution wid th ratioOrdered By: Allen Caro on 12-24-2024 Erythrocyte distribution width (RBC) [Ratio] 14.6 % 11.6-14.6 [facility] Erythrocyte distribution wid th standard deviationOrdered By: Allen Caro on 12-24-2024 Erythrocyte distribution width (RBC) [Entitic vol] 47.4 fL High 35.1-43.9 [facility] Estimated glomerular filtrat ion rate (GFR) AmericanOrdered By: Allen Caro on 12-24-2024 Estimated GFR (MDRD) Amer 100 mL/min >60 [facility] Comment on above: GFR Calc Estimation of creatinine lima aranceOrdered By: Allen Caro on 12-24-2024 Estimated Creatinine Clearance Calc 72.32 ml/min [facility] Glomerular filtration rate ( GFR) estimationOrdered By: Allen Caro on 12-24-2024 Estimated GFR (MDRD) Non-Af Amer 83 mL/min >60 [facility] Comment on above: Non- GFR Calc Glucose measurementOrdered B y: Allen Caro on 12-24-2024 Glucose [Mass/Vol] 297 mg/dL [facility] [address] [facility] Comment on above: Glucose result great er than or equal to 200 mg/dLsuggests DIABETES MELLITUS per A.D.A. criteria. [facility] By: Allen Caro on 12-24-2024 Bedside Glucose (Misc Panel) 323 mg/dL [address] [facility] Comment on above: MANAGEMENT OF PATIEN T CARE PER NURSING PROTOCOL Hematocrit Auto (Bld) [Volum e fraction]Ordered By: Allen Caro on 12-24-2024 Hematocrit (Bld) [Volume fraction] 40.0 % 40-54 [facility] Hemoglobin measurementOrdere d By: Allen Caro on 12-24-2024 Hemoglobin (Bld) [Mass/Vol] 13.5 g/dL 13.0-16.5 [facility] Immature granulocytes/100 WB C Auto (Bld)Ordered By: Allen Caro on 12-24-2024 Immature granulocytes/100 WBC (Bld) 1.200 % High 0.0-0.9 [facility] Comment on above: IG% - Immature Granu locytes (promyelocytes, myelocytes and metamyelocytes) > 1% indicates that a LEFT SHIFT is Present. Lymphocytes Auto (Unsp spec) [#/Vol]Ordered By: Allen Caro on 12-24-2024 Lymphocytes (Bld) [#/Vol] 1.10 10*3/uL 0.83-4.51 [facility] Lymphocytes/100 WBC Auto (Un sp spec)Ordered By: Allen Caro on 12-24-2024 Lymphocytes/100 WBC (Bld) 5.8 % Low 19-41 [facility] MCV (mean corpuscular volume ) determinationOrdered By: Allen Caro on 12-24-2024 MCV (RBC) [Entitic vol] 89.1 fL 80-94 [facility] Mean corpuscular hemoglobin (MCH) determinationOrdered By: Allen Caro on 12-24-2024 MCH (RBC) [Entitic mass] 30.1 pg 27.0-32.0 [facility] Mean corpuscular hemoglobin concentration (MCHC) determinationOrdered By: Allen Caro on 12-24-2024 MCHC (RBC) [Mass/Vol] 33.8 g/dL 32-36 [facility] Mean platelet volume determi nationOrdered By: Allen Caro on 12-24-2024 Platelet mean volume (Bld) [Entitic vol] 10.1 fL 6.2-12.0 [facility] Monocyte percentageOrdered B y: Allen Caro on 12-24-2024 Monocytes/100 WBC (Bld) 2.8 % 0-10 [facility] Neutrophil percentageOrdered By: Allen aCro on 12-24-2024 Neutrophils/100 WBC (Bld) 89.9 % High 47-70 [facility] Nucleated red blood cell per centageOrdered By: Allen Caro on 12-24-2024 Nucleated RBC/100 WBC (Bld) [Ratio] 0 % 0-5 [facility] Platelet countOrdered By: Tanya Caro on 12-24-2024 Platelets (Bld) [#/Vol] 415 10*3/uL 150-450 [facility] Potassium measurementOrdered By: Allen Caro on 12-24-2024 Potassium [Moles/Vol] 4.1 mmol/L 3.5-5.1 [facility] RBC Auto (Bld) [#/Vol]Ordere d By: Allen Caro on 12-24-2024 RBC (Bld) [#/Vol] 4.49 10*6/uL Low 4.6-6.2 [facility] Serum anion gap measurementO rdered By: Allen Caro on 12-24-2024 Anion gap [Moles/Vol] 8 mmol/L 03-23 [facility] Serum or plasma calcium odette urement (mass/volume)Ordered By: Allen Caro on 12-24-2024 Calcium [Mass/Vol] 9.1 mg/dL 8.5-10.1 [facility] Serum or plasma creatinine m easurement (mass/volume)Ordered By: Allen Caro on 12-24-2024 Creatinine [Mass/Vol] 0.94 mg/dL 0.70-1.30 [facility] Comment on above: The validity of the calculated GFR & GFRAA in patients over 70 years has not been determined. Clinical correlation is essential. Serum or plasma urea nitroge n measurement (mass/volume)Ordered By: Allen Caro on 12-24-2024 Urea nitrogen [Mass/Vol] 23 mg/dL High 7-18 [facility] Sodium levelOrdered By: Manoj Caro on 12-24-2024 Sodium [Moles/Vol] 134 mmol/L Low 136-145 [facility] Urine Cultureon 12-24-2024 URC Culture exhibits no growth. Normal [facility] Comment on above: Performed By: #### M 100.2200 ####[facility] [address] [place], [place], [id number] White blood cell (WBC) count Ordered By: Allen Caro on 12-24-2024 WBC (Bld) [#/Vol] 18.9 10*3/uL High 4.4-11.0 [facility] Basic Metabolic Profile (BMP )on 02-14-2025 BUN/CRE 27.3 RATIO High 10-20 [facility] Comment on above: Performed By: #### L 500.2500, L100.0100 ####[facility] [address] [place], [address] CA,Total 9.7 mg/dL Normal 8.5-10.1 [facility] Comment on above: Performed By: #### L 500.2500, L100.0100 ####[facility] [address] [place], [address] Chloride [Moles/Vol] 101 mmol/L Normal 98-107 [facility] Comment on above: Performed By: #### L 500.2500, L100.0100 ####[facility] [address] [place], [address] CO2 [Moles/Vol] 26.0 mmol/L Normal 21.0-32.0 [facility] Comment on above: Performed By: #### L 500.2500, L100.0100 ####[facility] [address] [place], [address] Creatinine [Mass/Vol] 0.95 mg/dL Normal 0.70-1.30 [facility] Comment on above: Result Comment: The validity of the calculated GFR GFRAA in patients over70 years has not been determined. Clinical correlation isessential. Performed By: #### L 500.2500, L100.0100 ####[facility] [address] [place], [address] ECRCL 71.56 ml/min Normal [facility] Comment on above: Performed By: #### L 500.2500, L100.0100 ####[facility] [address] [place], [address] EST GFR - AA 99 mL/min Normal >60 [facility] Comment on above: Result Comment: Afri can Burmese GFR Calc Performed By: #### L 500.2500, L100.0100 ####[facility] [address] [place], [address] GAP 8 Normal 5-15 [facility] Comment on above: Performed By: #### L 500.2500, L100.0100 ####[facility] [address] [place], [address] GFR/1.73 sq M.predicted among non-blacks MDRD (S/P/Bld) [Vol rate/Area] 82 mL/min/{1.73_m2} Normal >60 [facility] Comment on above: Result Comment: Non- GFR Calc Performed By: #### L 500.2500, L100.0100 ####[facility] [address] [place], [address] Glucose [Mass/Vol] 344 mg/dL High 74-106 [facility] Comment on above: Result Comment: Gluc ose result greater than or equal to 200 mg/dLsuggests DIABETES MELLITUS per A.D.A. criteria. Performed By: #### L 500.2500, L100.0100 ####[facility] [address] [place], [address] Potassium [Moles/Vol] 4.0 mmol/L Normal 3.5-5.1 [facility] Comment on above: Performed By: #### L 500.2500, L100.0100 ####[facility] [address] [place], [address] Sodium [Moles/Vol] 136 mmol/L Normal 136-145 [facility] Comment on above: Performed By: #### L 500.2500, L100.0100 ####[facility] [address] [place], [address] Urea nitrogen [Mass/Vol] 26 mg/dL High 7-18 [facility] Comment on above: Performed By: #### L 500.2500, L100.0100 ####[facility] [address] [place], [address] Bedside Glucoseon 12-23-2024 FINGERSTICK GLU 445 mg/dL High [address] [place] [address] Comment on above: Result Comment: SARAH GEMENT OF PATIENT CARE PER NURSING PROTOCOL Performed By: #### L 501.080 ####[facility] [address] [place], [address] FINGERSTICK GLU 417 mg/dL High [address] [place] [address] Comment on above: Result Comment: SARAH GEMENT OF PATIENT CARE PER NURSING PROTOCOL Performed By: #### L 501.080 ####[facility] [address] [place], [address] FINGERSTICK GLU 353 mg/dL High [address] [place] [address] Comment on above: Result Comment: SARAH GEMENT OF PATIENT CARE PER NURSING PROTOCOL Performed By: #### L 501.080 ####[facility] [address] [place], [address] FINGERSTICK GLU 383 mg/dL High [address] [place] [address] Comment on above: Result Comment: SARAH GEMENT OF PATIENT CARE PER NURSING PROTOCOL Performed By: #### L 501.080 ####[facility] [address] [place], [address] FINGERSTICK GLU 318 mg/dL High [address] [place] [address] Comment on above: Result Comment: SARAH GEMENT OF PATIENT CARE PER NURSING PROTOCOL Performed By: #### L 501.080 ####[facility] [address] [place], [address] FINGERSTICK GLU 389 mg/dL High [address] [place] [address] Comment on above: Result Comment: SARAH GEMENT OF PATIENT CARE PER NURSING PROTOCOL Performed By: #### L 501.080 ####[facility] [address] [place], [address] CBC W/Diff, Automatedon 12-10 Absolute Lymph 1.11 X10 3/uL Normal 0.83-4.51 [facility] Comment on above: Performed By: #### L 500.2500, L100.0100 ####[facility] [address] [place], [address] Absolute Neut 11.8 X10 3/uL High 2.0-7.7 [facility] Comment on above: Performed By: #### L 500.2500, L100.0100 ####[facility] [address] [place], [address] Basophils/100 WBC (Bld) 0.4 % Normal 0-1 [facility] Comment on above: Performed By: #### L 500.2500, L100.0100 ####[facility] [address] [place], [address] Eosinophils/100 WBC (Bld) 0.5 % Normal 0-5 [facility] Comment on above: Performed By: #### L 500.2500, L100.0100 ####[facility] [address] [place], [address] Erythrocyte distribution width (RBC) [Ratio] 14.4 % Normal 11.6-14.6 [facility] Comment on above: Performed By: #### L 500.2500, L100.0100 ####[facility] [address] [place], [address] Hematocrit (Bld) [Volume fraction] 41.6 % Normal 40-54 [facility] Comment on above: Performed By: #### L 500.2500, L100.0100 ####[facility] [address] [place], [address] Hemoglobin (Bld) [Mass/Vol] 14.0 g/dL Normal 13.0-16.5 [facility] Comment on above: Performed By: #### L 500.2500, L100.0100 ####[facility] [address] [place], [address] IG% 0.900 Normal 0.0-0.9 [facility] Comment on above: Result Comment: IG% - Immature Granulocytes (promyelocytes, myelocytes andmetamyelocytes) > 1% indicates that a LEFT SHIFT is Present. Performed By: #### L 500.2500, L100.0100 ####[facility] [address] [place], [address] Lymphocytes/100 WBC (Bld) 8.1 % Low 19-41 [facility] Comment on above: Performed By: #### L 500.2500, L100.0100 ####[facility] [address] [place], [address] MCH (RBC) [Entitic mass] 29.8 pg Normal 27.0-32.0 [facility] Comment on above: Performed By: #### L 500.2500, L100.0100 ####[facility] [address] [place], [address] MCHC (RBC) [Mass/Vol] 33.7 g/dL Normal 32-36 [facility] Comment on above: Performed By: #### L 500.2500, L100.0100 ####[facility] [address] [place], [address] MCV (RBC) [Entitic vol] 88.5 fL Normal 80-94 [facility] Comment on above: Performed By: #### L 500.2500, L100.0100 ####[facility] [address] [place], [address] Monocytes/100 WBC (Bld) 4.3 % Normal 0-10 [facility] Comment on above: Performed By: #### L 500.2500, L100.0100 ####[facility] [address] [place], [address] Neutrophils/100 WBC (Bld) 85.8 % High 47-70 [facility] Comment on above: Performed By: #### L 500.2500, L100.0100 ####[facility] [address] [place], [address] Nucleated RBC (Bld) [#/Vol] 0 10*3/uL Normal 0-5 [facility] Comment on above: Performed By: #### L 500.2500, L100.0100 ####[facility] [address] [place], [address] Platelet mean volume (Bld) [Entitic vol] 10.3 fL Normal 6.2-12.0 [facility] Comment on above: Performed By: #### L 500.2500, L100.0100 ####[facility] [address] [place], [address] Platelets (Bld) [#/Vol] 352 10*3/uL Normal 150-450 [facility] Comment on above: Performed By: #### L 500.2500, L100.0100 ####[facility] [address] [place], [address] RBC (Bld) [#/Vol] 4.70 10*6/uL Normal 4.6-6.2 [facility] Comment on above: Performed By: #### L 500.2500, L100.0100 ####[facility] [address] [place], [address] RDW SD 46.2 fl High 35.1-43.9 [facility] Comment on above: Performed By: #### L 500.2500, L100.0100 ####[facility] [address] [place], [address] WBC (Bld) [#/Vol] 13.8 10*3/uL High 4.4-11.0 [facility] Comment on above: Performed By: #### L 500.2500, L100.0100 ####[facility] [address] [place], [address] Urine cultureOrdered By: Ariel Caro on 12-23-2024 Bacteria identified Cx Nom (U) Culture exhibits no growth. [facility] Basic Metabolic Profile (BMP )on 12-22-2024 BUN/CRE 19.3 RATIO Normal 10-20 [facility] Comment on above: Performed By: #### L 500.2500, L100.0100, L501.5200 ####[facility] [address] [place], [address] CA,Total 8.9 mg/dL Normal 8.5-10.1 [facility] Comment on above: Performed By: #### L 500.2500, L100.0100, L501.5200 ####[facility] [address] [place], [address] Chloride [Moles/Vol] 100 mmol/L Normal 98-107 [facility] Comment on above: Performed By: #### L 500.2500, L100.0100, L501.5200 ####[facility] [address] [place], [address] CO2 [Moles/Vol] 25.0 mmol/L Normal 21.0-32.0 [facility] Comment on above: Performed By: #### L 500.2500, L100.0100, L501.5200 ####[facility] [address] [place], [address] Creatinine [Mass/Vol] 0.88 mg/dL Normal 0.70-1.30 [facility] Comment on above: Result Comment: The validity of the calculated GFR GFRAA in patients over70 years has not been determined. Clinical correlation isessential. Performed By: #### L 500.2500, L100.0100, L501.5200 ####[facility] [address] [place], [address] ECRCL 77.25 ml/min Normal [facility] Comment on above: Performed By: #### L 500.2500, L100.0100, L501.5200 ####[facility] [address] [place], [address] EST GFR - AA 108 mL/min Normal >60 [facility] Comment on above: Result Comment: Afri can Burmese GFR Calc Performed By: #### L 500.2500, L100.0100, L501.5200 ####[facility] [address] [place], [address] GAP 8 Normal 5-15 [facility] Comment on above: Performed By: #### L 500.2500, L100.0100, L501.5200 ####[facility] [address] [place], [address] GFR/1.73 sq M.predicted among non-blacks MDRD (S/P/Bld) [Vol rate/Area] 90 mL/min/{1.73_m2} Normal >60 [facility] Comment on above: Result Comment: Non- GFR Calc Performed By: #### L 500.2500, L100.0100, L501.5200 ####[facility] [address] [place], [address] Glucose [Mass/Vol] 263 mg/dL High 74-106 [facility] Comment on above: Result Comment: Gluc ose result greater than or equal to 200 mg/dLsuggests DIABETES MELLITUS per A.D.A. criteria. Performed By: #### L 500.2500, L100.0100, L501.5200 ####[facility] [address] [place], [address] Potassium [Moles/Vol] 3.6 mmol/L Normal 3.5-5.1 [facility] Comment on above: Performed By: #### L 500.2500, L100.0100, L501.5200 ####[facility] [address] [place], [address] Sodium [Moles/Vol] 133 mmol/L Low 136-145 [facility] Comment on above: Performed By: #### L 500.2500, L100.0100, L501.5200 ####[facility] [address] [place], [address] Urea nitrogen [Mass/Vol] 17 mg/dL Normal 7-18 [facility] Comment on above: Performed By: #### L 500.2500, L100.0100, L501.5200 ####[facility] [address] [place], [address] Bedside Glucoseon 12-22-2024 FINGERSTICK GLU 497 mg/dL Invalid Interpretation Code 74-106 [facility] Comment on above: Result Comment: Dr Edwin laguerre FollowedMANAGEMENT OF PATIENT CARE PER NURSING PROTOCOL Performed By: #### L 501.080 ####[facility] [address] [place], [address] FINGERSTICK GLU 266 mg/dL High -[address] [place] [address] Comment on above: Result Comment: SARAH GEMENT OF PATIENT CARE PER NURSING PROTOCOL Performed By: #### L 501.080 ####[facility] [address] [place], [address] FINGERSTICK GLU 153 mg/dL High -[address] [place] [address] Comment on above: Result Comment: SARAH GEMENT OF PATIENT CARE PER NURSING PROTOCOL Performed By: #### L 501.080 ####[facility] [address] [place], [address] CBC W/Diff, Automatedon - Absolute Lymph 0.81 X10 3/uL Low 0.83-4.51 [facility] Comment on above: Performed By: #### L 500.2500, L100.0100, L501.5200 ####[facility] [address] [place], [address] Absolute Neut 5.1 X10 3/uL Normal 2.0-7.7 [facility] Comment on above: Performed By: #### L 500.2500, L100.0100, L501.5200 ####[facility] [address] [place], [address] Basophils/100 WBC (Bld) 0.3 % Normal 0-1 [facility] Comment on above: Performed By: #### L 500.2500, L100.0100, L501.5200 ####[facility] [address] [place], [address] Eosinophils/100 WBC (Bld) 0.0 % Normal 0-5 [facility] Comment on above: Performed By: #### L 500.2500, L100.0100, L501.5200 ####[facility] [address] [place], [address] Erythrocyte distribution width (RBC) [Ratio] 14.3 % Normal 11.6-14.6 [facility] Comment on above: Performed By: #### L 500.2500, L100.0100, L501.5200 ####[facility] [address] [place], [address] Hematocrit (Bld) [Volume fraction] 40.8 % Normal 40-54 [facility] Comment on above: Performed By: #### L 500.2500, L100.0100, L501.5200 ####[facility] [address] [place], [address] Hemoglobin (Bld) [Mass/Vol] 13.8 g/dL Normal 13.0-16.5 [facility] Comment on above: Performed By: #### L 500.2500, L100.0100, L501.5200 ####[facility] [address] [place], [address] IG% 2.100 High 0.0-0.9 [facility] Comment on above: Result Comment: IG% - Immature Granulocytes (promyelocytes, myelocytes andmetamyelocytes) > 1% indicates that a LEFT SHIFT is Present. Performed By: #### L 500.2500, L100.0100, L501.5200 ####[facility] [address] [place], [address] Lymphocytes/100 WBC (Bld) 12.9 % Low 19-41 [facility] Comment on above: Performed By: #### L 500.2500, L100.0100, L501.5200 ####[facility] [address] [place], [address] MCH (RBC) [Entitic mass] 30.0 pg Normal 27.0-32.0 [facility] Comment on above: Performed By: #### L 500.2500, L100.0100, L501.5200 ####[facility] [address] [place], [address] MCHC (RBC) [Mass/Vol] 33.8 g/dL Normal 32-36 [facility] Comment on above: Performed By: #### L 500.2500, L100.0100, L501.5200 ####[facility] [address] [place], [address] MCV (RBC) [Entitic vol] 88.7 fL Normal 80-94 [facility] Comment on above: Performed By: #### L 500.2500, L100.0100, L501.5200 ####[facility] [address] [place], [address] Monocytes/100 WBC (Bld) 3.0 % Normal 0-10 [facility] Comment on above: Performed By: #### L 500.2500, L100.0100, L501.5200 ####[facility] [address] [place], [address] Neutrophils/100 WBC (Bld) 81.7 % High 47-70 [facility] Comment on above: Performed By: #### L 500.2500, L100.0100, L501.5200 ####[facility] [address] [place], [address] Nucleated RBC (Bld) [#/Vol] 0 10*3/uL Normal 0-5 [facility] Comment on above: Performed By: #### L 500.2500, L100.0100, L501.5200 ####[facility] [address] [place], [address] Platelet mean volume (Bld) [Entitic vol] 10.0 fL Normal 6.2-12.0 [facility] Comment on above: Performed By: #### L 500.2500, L100.0100, L501.5200 ####[facility] [address] [place], [address] Platelets (Bld) [#/Vol] 246 10*3/uL Normal 150-450 [facility] Comment on above: Performed By: #### L 500.2500, L100.0100, L501.5200 ####[facility] [address] [place], [address] RBC (Bld) [#/Vol] 4.60 10*6/uL Normal 4.6-6.2 [facility] Comment on above: Performed By: #### L 500.2500, L100.0100, L501.5200 ####[facility] [address] [place], [address] RDW SD 46.5 fl High 35.1-43.9 [facility] Comment on above: Performed By: #### L 500.2500, L100.0100, L501.5200 ####[facility] [address] [place], [address] WBC (Bld) [#/Vol] 6.3 10*3/uL Normal 4.4-11.0 [facility] Comment on above: Performed By: #### L 500.2500, L100.0100, L501.5200 ####[facility] [address] [place], [address] Magnesiumon 12-22-2024 Magnesium [Mass/Vol] 2.6 mg/dL Normal 1.6-2.6 [facility] Comment on above: Performed By: #### L 500.2500, L100.0100, L501.5200 ####[facility] [address] [place], [address] Magnesium measurementOrdered By: Allen Caro on 12-22-2024 Magnesium [Mass/Vol] 2.6 mg/dL 1.6-2.6 [facility] Phosphoruson 12-22-2024 Phosphate [Mass/Vol] 4.0 mg/dL Normal 2.5-4.9 [facility] Comment on above: Performed By: #### L 501.2300 ####[facility] [address] [place], [address] Phosphorus measurementOrdere d By: Allen Caro on 12-22-2024 Phosphorus Level 4.0 mg/dL 2.5-4.9 [facility] Urinalysis, Completeon 12-22 BACTERIA 2+ /hpf Normal None Seen [facility] Comment on above: Order Comment: CLEAN CATCH Performed By: #### L 400.0001 ####[facility] [address] [place], [address] Mucus Ql (Urine sed) RARE Normal [facility] Comment on above: Order Comment: CLEAN CATCH Performed By: #### L 400.0001 ####[facility] [address] [place], [address] RBC 0 SEEN Normal 0-5 [facility] Comment on above: Order Comment: CLEAN CATCH Performed By: #### L 400.0001 ####[facility] [address] [place], [address] WBC >100 SEEN Normal 0-5 [facility] Comment on above: Order Comment: CLEAN CATCH Result Comment: Micr oscopic field is filled. Other elements may beobscured. Performed By: #### L 400.0001 ####[facility] [address] [place], [address] BILIRUBIN URINE Negative Normal Negative [facility] Comment on above: Order Comment: CLEAN CATCH Performed By: #### L 400.0001 ####[facility] [address] [place], [address] Clarity (U) Cloudy Normal Clear [facility] Comment on above: Order Comment: CLEAN CATCH Performed By: #### L 400.0001 ####[facility] [address] [place], [address] Color (U) Straw Normal Yellow [facility] Comment on above: Order Comment: CLEAN CATCH Performed By: #### L 400.0001 ####[facility] [address] [place], [address] GLUCOSE, UR Normal Normal Normal [facility] Comment on above: Order Comment: CLEAN CATCH Performed By: #### L 400.0001 ####[facility] [address] [place], [address] KETONE UR Negative Normal Negative [facility] Comment on above: Order Comment: CLEAN CATCH Performed By: #### L 400.0001 ####[facility] [address] [place], [address] LEUK ESTERASE 500 /ul Abnormal Negative [facility] Comment on above: Order Comment: CLEAN CATCH Performed By: #### L 400.0001 ####[facility] [address] [place], [address] Nitrite Ql (U) Negative Normal Negative [facility] Comment on above: Order Comment: CLEAN CATCH Performed By: #### L 400.0001 ####[facility] [address] [place], [address] OCCULT BLOOD-UR 150 /ul Abnormal Negative [facility] Comment on above: Order Comment: CLEAN CATCH Performed By: #### L 400.0001 ####[facility] [address] [place], [address] pH UR 6.0 Normal 5.0 - 8.0 [facility] Comment on above: Order Comment: CLEAN CATCH Performed By: #### L 400.0001 ####[facility] [address] [place], [address] PROT DIPSTX 100 mg/dl Abnormal Negative [facility] Comment on above: Order Comment: CLEAN CATCH Performed By: #### L 400.0001 ####[facility] [address] [place], [address] SP.GR. DIPSTX 1.010 Normal 1.002-1.030 [facility] Comment on above: Order Comment: CLEAN CATCH Performed By: #### L 400.0001 ####[facility] [address] [place], [address] UROBILI Normal Normal Normal [facility] Comment on above: Order Comment: CLEAN CATCH Performed By: #### L 400.0001 ####[facility] [address] [place], [address] EPI,SQUAMOUS 0 SEEN Normal 0-5 [facility] Comment on above: Order Comment: CLEAN CATCH Performed By: #### L 400.0001 ####[facility] [address] [place], [address] 12 Lead EKGon 12-21-2024 12 Lead EKG Normal [facility] Albumin to globulin ratioOrd ered By: Syd Ronquillo on 12-21-2024 Albumin/Globulin [Mass ratio] 0.7 {ratio} Low 0.9-2.4 [facility] Comment on above: Order Comment: 'TROP ' Serial specimen #1, #2 or #3: 1 Performed By: #### L 501.4020, L501.9520, L100.0500, L500.4050 ####[facility] [address] [place], [address] Bedside Glucoseon 12-21-2024 FINGERSTICK GLU 270 mg/dL High 74-106 [facility] Comment on above: Result Comment: SARAH GEMENT OF PATIENT CARE PER NURSING PROTOCOL Performed By: #### L 501.080 ####[facility] [address] [place], [address] FINGERSTICK GLU 197 mg/dL High -106 [facility] Comment on above: Result Comment: SARAH GEMENT OF PATIENT CARE PER NURSING PROTOCOL Performed By: #### L 501.080 ####[facility] [address] [place], [address] FINGERSTICK GLU 297 mg/dL High -106 [facility] Comment on above: Result Comment: SARAH GEMENT OF PATIENT CARE PER NURSING PROTOCOL Performed By: #### L 501.080 ####[facility] [address] [place], [address] FINGERSTICK GLU 278 mg/dL High 74-106 [facility] Comment on above: Result Comment: SARAH GEMENT OF PATIENT CARE PER NURSING PROTOCOL Performed By: #### L 501.080 ####[facility] [address] [place], [address] Bilirubin Test strip Ql (U)O rdered By: Syd Ronquillo on 12-21-2024 Bilirubin Ql (U) Negative Negative [facility] Bilirubin, totalOrdered By: Syd Ronquillo on 12-21-2024 Bilirubin [Mass/Vol] 1.00 mg/dL Normal 0.20-1.00 [facility] Comment on above: For patients on eltr ombopag therapy, use of Dimension Sims TBIL is not recommended. Order Comment: 'TROP ' Serial specimen #1, #2 or #3: 1 Result Comment: For patients on eltrombopag therapy, use of Dimension Sims TBIL is not recommended. Performed By: #### L 501.4020, L501.9520, L100.0500, L500.4050 ####[facility] [address] [place], [address] Brain/Head without Contrasto n 12-21-2024 Brain/Head without Contrast Normal [facility] CBC-Complete Blood Cnt No Di ffon 12-21-2024 Erythrocyte distribution width (RBC) [Ratio] 14.3 % Normal 11.6-14.6 [facility] Comment on above: Performed By: #### L 501.4020, L501.9520, L100.0500, L500.4050 ####[facility] [address] [place], [address] Hematocrit (Bld) [Volume fraction] 40.7 % Normal 40-54 [facility] Comment on above: Performed By: #### L 501.4020, L501.9520, L100.0500, L500.4050 ####[facility] [address] [place], [address] Hemoglobin (Bld) [Mass/Vol] 13.9 g/dL Normal 13.0-16.5 [facility] Comment on above: Performed By: #### L 501.4020, L501.9520, L100.0500, L500.4050 ####[facility] [address] [place], [address] MCH (RBC) [Entitic mass] 30.3 pg Normal 27.0-32.0 [facility] Comment on above: Performed By: #### L 501.4020, L501.9520, L100.0500, L500.4050 ####[facility] [address] [place], [address] MCHC (RBC) [Mass/Vol] 34.2 g/dL Normal 32-36 [facility] Comment on above: Performed By: #### L 501.4020, L501.9520, L100.0500, L500.4050 ####[facility] [address] [place], [address] MCV (RBC) [Entitic vol] 88.9 fL Normal 80-94 [facility] Comment on above: Performed By: #### L 501.4020, L501.9520, L100.0500, L500.4050 ####[facility] [address] [place], [address] Platelet mean volume (Bld) [Entitic vol] 10.3 fL Normal 6.2-12.0 [facility] Comment on above: Performed By: #### L 501.4020, L501.9520, L100.0500, L500.4050 ####[facility] [address] [place], [address] Platelets (Bld) [#/Vol] 236 10*3/uL Normal 150-450 [facility] Comment on above: Performed By: #### L 501.4020, L501.9520, L100.0500, L500.4050 ####[facility] [address] [place], [address] RBC (Bld) [#/Vol] 4.58 10*6/uL Low 4.6-6.2 [facility] Comment on above: Performed By: #### L 501.4020, L501.9520, L100.0500, L500.4050 ####[facility] [address] [place], [address] RDW SD 46.0 fl High 35.1-43.9 [facility] Comment on above: Performed By: #### L 501.4020, L501.9520, L100.0500, L500.4050 ####[facility] [address] [place], [address] WBC (Bld) [#/Vol] 14.7 10*3/uL High 4.4-11.0 [facility] Comment on above: Performed By: #### L 501.4020, L501.9520, L100.0500, L500.4050 ####[facility] [address] [place], [address] Chest 1 View (Portable)on Chest 1 View (Portable) Normal [facility] Clavicleon 12-21-2024 Clavicle Normal [facility] Comprehensive Metabolic Prof ilon 12-21-2024 ALK P 169 U/L High 45-117 [facility] Comment on above: Order Comment: 'TROP ' Serial specimen #1, #2 or #3: 1 Performed By: #### L 501.4020, L501.9520, L100.0500, L500.4050 ####[facility] [address] [place], [address] BUN/CRE 11.7 RATIO Normal 10-20 [facility] Comment on above: Order Comment: 'TROP ' Serial specimen #1, #2 or #3: 1 Performed By: #### L 501.4020, L501.9520, L100.0500, L500.4050 ####[facility] [address] [place], [address] CA,Total 8.5 mg/dL Normal 8.5-10.1 [facility] Comment on above: Order Comment: 'TROP ' Serial specimen #1, #2 or #3: 1 Performed By: #### L 501.4020, L501.9520, L100.0500, L500.4050 ####[facility] [address] [place], [address] Chloride [Moles/Vol] 95 mmol/L Low 98-107 [facility] Comment on above: Order Comment: 'TROP ' Serial specimen #1, #2 or #3: 1 Performed By: #### L 501.4020, L501.9520, L100.0500, L500.4050 ####[facility] [address] [place], [address] CO2 [Moles/Vol] 25.0 mmol/L Normal 21.0-32.0 [facility] Comment on above: Order Comment: 'TROP ' Serial specimen #1, #2 or #3: 1 Performed By: #### L 501.4020, L501.9520, L100.0500, L500.4050 ####[facility] [address] [place], [address] Creatinine [Mass/Vol] 1.03 mg/dL Normal 0.70-1.30 [facility] Comment on above: Order Comment: 'TROP ' Serial specimen #1, #2 or #3: 1 Result Comment: The validity of the calculated GFR GFRAA in patients over70 years has not been determined. Clinical correlation isessential. Performed By: #### L 501.4020, L501.9520, L100.0500, L500.4050 ####[facility] [address] [place], [address] ECRCL 66.00 ml/min Normal [facility] Comment on above: Order Comment: 'TROP ' Serial specimen #1, #2 or #3: 1 Performed By: #### L 501.4020, L501.9520, L100.0500, L500.4050 ####[facility] [address] [place], [address] EST GFR - AA 91 mL/min Normal >60 [facility] Comment on above: Order Comment: 'TROP ' Serial specimen #1, #2 or #3: 1 Result Comment: Afri can Burmese GFR Calc Performed By: #### L 501.4020, L501.9520, L100.0500, L500.4050 ####[facility] [address] [place], [address] GAP 10 Normal 5-15 [facility] Comment on above: Order Comment: 'TROP ' Serial specimen #1, #2 or #3: 1 Performed By: #### L 501.4020, L501.9520, L100.0500, L500.4050 ####[facility] [address] [place], [address] GFR/1.73 sq M.predicted among non-blacks MDRD (S/P/Bld) [Vol rate/Area] 75 mL/min/{1.73_m2} Normal >60 [facility] Comment on above: Order Comment: 'TROP ' Serial specimen #1, #2 or #3: 1 Result Comment: Non- GFR Calc Performed By: #### L 501.4020, L501.9520, L100.0500, L500.4050 ####[facility] [address] [place], [address] Glucose [Mass/Vol] 257 mg/dL High 74-106 [facility] Comment on above: Order Comment: 'TROP ' Serial specimen #1, #2 or #3: 1 Result Comment: Gluc ose result greater than or equal to 200 mg/dLsuggests DIABETES MELLITUS per A.D.A. criteria. Performed By: #### L 501.4020, L501.9520, L100.0500, L500.4050 ####[facility] [address] [place], [address] Potassium [Moles/Vol] 3.3 mmol/L Low 3.5-5.1 [facility] Comment on above: Order Comment: 'TROP ' Serial specimen #1, #2 or #3: 1 Performed By: #### L 501.4020, L501.9520, L100.0500, L500.4050 ####[facility] [address] [place], [address] Sodium [Moles/Vol] 130 mmol/L Low 136-145 [facility] Comment on above: Order Comment: 'TROP ' Serial specimen #1, #2 or #3: 1 Performed By: #### L 501.4020, L501.9520, L100.0500, L500.4050 ####[facility] [address] [place], [address] T PROT 7.0 g/dL Normal 6.4-8.2 [facility] Comment on above: Order Comment: 'TROP ' Serial specimen #1, #2 or #3: 1 Performed By: #### L 501.4020, L501.9520, L100.0500, L500.4050 ####[facility] [address] [place], [address] Urea nitrogen [Mass/Vol] 12 mg/dL Normal 7-18 [facility] Comment on above: Order Comment: 'TROP ' Serial specimen #1, #2 or #3: 1 Performed By: #### L 501.4020, L501.9520, L100.0500, L500.4050 ####[facility] [address] [place], [address] Comprehensive Metabolic Prof ilOrdered By: Syd Ronquillo on 12-21-2024 AST [Catalytic activity/Vol] 68 U/L High 15-37 [facility] Comment on above: Order Comment: 'TROP ' Serial specimen #1, #2 or #3: 1 Performed By: #### L 501.4020, L501.9520, L100.0500, L500.4050 ####[facility] [address] [place], [address] Consultation - Cardiologyon 12-21-2024 Consultation - Cardiology Normal [facility] Echo Complete W/ Contraston 12-21-2024 Echo Complete W/ Contrast Normal [facility] Emergency Department Summary on 12-21-2024 Emergency Department Summary Normal [facility] Epithelial cells.squamous LM Ql (Urine sed)Ordered By: Syd Ronquillo on 12-21-2024 Epithelial cells.squamous LM.HPF (Urine sed) [#/Area] 0 /[HPF] 0-5 [facility] Glucose Ql (U)Ordered By: Fili Ronquillo on 12-21-2024 Urine Glucose (UA) Normal mg/dl Normal [facility] H AND P Exam - Hospitaliston 12-21-2024 H&P Exam - Hospitalist Normal [facility] Ketones Test strip Ql (U)Ord ered By: Syd Ronquillo on 12-21-2024 Ketones Ql (U) Negative Negative [facility] L501.4020on 12-21-2024 TROPONIN-I HS 46 pg/mL Normal 3.0-78.0 [facility] Comment on above: Order Comment: 'TROP ' Serial specimen #1, #2 or #3: 1 Result Comment: Chinmay granados Note: New Test Units and Gender Specific Reference Ranges. For more information see Policy Stat Procedure Sims High Sensitivity Troponin (TNIH) and attachments. Performed By: #### L 501.4020, L501.9520, L100.0500, L500.4050 ####[facility] [address] [place], [place], [id number] Microscopic analysis of urin e for red blood cells (RBC)Ordered By: Syd Ronquillo on 12-21-2024 Urine RBC 0 SEEN /hpf 0-5 [facility] Mucus LM Ql (Urine sed)Order ed By: Syd Ronquillo on 12-21-2024 Mucus Ql (Urine sed) RARE /hpf [facility] Nitrite Test strip Ql (U)Ord ered By: Syd Ronquillo on 12-21-2024 Nitrite Ql (U) Negative Negative [facility] Protein Test strip Ql (U)Ord ered By: Syd Ronquillo on 12-21-2024 Protein Ql (U) 100 mg/dl High Negative [facility] Serum globulin measurementOr dered By: Syd Ronquillo on 12-21-2024 Globulin (S) [Mass/Vol] 4.2 g/dL Normal 2.2-4.2 [facility] Comment on above: Order Comment: 'TROP ' Serial specimen #1, #2 or #3: 1 Performed By: #### L 501.4020, L501.9520, L100.0500, L500.4050 ####[facility] [address] [place], [address] Serum or plasma alanine medellin otransferase (ALT) measurementOrdered By: Syd Ronquillo on 12-21-2024 ALT [Catalytic activity/Vol] 69 U/L High 16-61 [facility] Comment on above: Order Comment: 'TROP ' Serial specimen #1, #2 or #3: 1 Performed By: #### L 501.4020, L501.9520, L100.0500, L500.4050 ####[facility] [address] [place], [address] Serum or plasma albumin odette urement (mass/volume)Ordered By: Syd Ronquillo on 12-21-2024 Albumin [Mass/Vol] 2.8 g/dL Low 3.2-5.0 [facility] Comment on above: Order Comment: 'TROP ' Serial specimen #1, #2 or #3: 1 Performed By: #### L 501.4020, L501.9520, L100.0500, L500.4050 ####[facility] [address] [place], [address] Serum or plasma alkaline chris sphatase measurementOrdered By: Syd Ronquillo on 12-21-2024 ALP [Catalytic activity/Vol] 169 U/L High 45-117 [facility] Shoulder min 2 Viewson 12-21 Shoulder min 2 Views Normal [facility] Spine Cervical without Contr ason 12-21-2024 Spine Cervical without Contras Normal [facility] TSH QnOrdered By: Syd voss on 12-21-2024 Thyroid Stimulating Hormone (TSH) 0.767 uIU/mL 0.358-3.740 [facility] Thyroid Stim Hormone (TSH)on 12-21-2024 TSH 0.767 uIU/mL Normal 0.358-3.740 [facility] Comment on above: Order Comment: 'TROP ' Serial specimen #1, #2 or #3: 1 Performed By: #### L 501.4020, L501.9520, L100.0500, L500.4050 ####[facility] [address] [place], [address] Total proteinOrdered By: Roxie Ronquillo on 12-21-2024 Protein [Mass/Vol] 7.0 g/dL 6.4-8.2 [facility] Troponin IOrdered By: Syd batista on 12-21-2024 Troponin I High Sensitivity 46 pg/mL 3.0-78.0 [facility] Comment on above: Please Note: [place] t Units and Gender Specific Reference Ranges. For more information see Policy Stat Procedure Sims High Sensitivity Troponin (TNIH) and attachments. Urine blood detectionOrdered By: Syd Ronquillo on 12-21-2024 Urine Occult Blood 150 /ul High Negative [facility] Urine clarityOrdered By: Roxie Ronquillo on 12-21-2024 Clarity (U) Cloudy Clear [facility] Urine color determinationOrd ered By: Syd Ronquillo on 12-21-2024 Color (U) Straw Yellow [facility] Urine leukocyte esterase det ection by dipstickOrdered By: Syd Ronquillo on 12-21-2024 Leukocyte esterase Test strip Ql (U) 500 /ul High Negative [facility] Urine pHOrdered By: Syd clayton on 12-21-2024 pH (U) 6.0 [pH] 5.0 - 8.0 [facility] Urine sediment bacteria coun t by microscopy (number/high power field)Ordered By: Syd Ronquillo on 12-21-2024 Bacteria LM.HPF (Urine sed) [#/Area] 2 /[HPF] None Seen [facility] Urine specific gravity measu rementOrdered By: Syd Ronquillo on 12-21-2024 Specific gravity (U) [Rel density] 1.010 1.002-1.030 [facility] Urobilinogen Ql (U)Ordered B y: Syd Ronquillo on 12-21-2024 Urine Urobilinogen Normal mg/dl Normal [facility] White blood cell countOrdere d By: Syd Ronquillo on 12-21-2024 Urine WBC >100 SEEN /hpf 0-5 [facility] Comment on above: Microscopic field is filled. Other elements may be obscured. Final Surgical Pathology Rep gwen 11-29-2024 Final Surgical Pathology Report . Pathology Reports Accession: Collected Date/Time: Received Date/Time: Pathologist: [id number] 11/25/2024 13:58 EST 11/28/2024 07:51 EST NIKOLAI NERI MD Final Surgical Pathology Report DIAGNOSIS: PROSTATE TISSUE: - ADENO FIBROMATOUS HYPERPLASIA CLINICAL INFORMATION: PROCEDURE: TRANSURETHRAL RESECTION, PROSTATE PREOPERATIVE DIAGNOSIS: BENIGN PROSTATIC HYPERPLASIA POSTOPERATIVE DIAGNOSIS: BENIGN PROSTATIC HYPERPLASIA SPECIMEN: A PROSTATE TISSUE GROSS DESCRIPTION: All parts labelled with patient name and [id number] Received in formalin labelled prostate tissue Is 6 g of soto-pink to bunch prostate chips aggregating to 4.5 x 3.5 x 1 cm. TS-3 Kaley Holm, Pathologists' German Tutor (ASCP) Performed by KALEY HOLM MICROSCOPIC DESCRIPTION: The microscopic examination is performed, except in the case of Gross Only. Verified by Pathology Report verified by [facility] NIKOLAI NERI Sign out Date: 11/29/2024 14:22 Performing Lab: [facility], [address] [place] [address] Pathology Dept Disclaimer If ancillary studies were utilized, the following Laboratory Developed Test (LDT) disclaimer will apply: Under CLIA requirements, [facility] Pathology Laboratory is qualified to perform high complexity testing. For all ancillary stains, positive and negative controls stain appropriately. Performance characteristics of immunohistochemical and chromogenic in-situ hybridization tests have been determined by [facility] Pathology Laboratory. These tests are used for clinical purposes, They should not be regarded as investigational or for research. Normal [facility] .Auto Diffon 11-26-2024 Basophil, Absolute 0.1 10 3/mcL Normal 0.0-0.2 [facility] Comment on above: Performed By: #### B MP, ADIFF, CBC, ANEU, GFR #### [address] [address] Basophils/100 WBC (Bld) 0.5 % Normal 0.0-2.5 [facility] Comment on above: Performed By: #### B MP, ADIFF, CBC, ANEU, GFR #### [address] [address] Eosinophil, Absolute 0.4 10 3/mcL Normal 0.0-0.7 [facility] Comment on above: Performed By: #### B MP, ADIFF, CBC, ANEU, GFR #### [address] [address] Eosinophils/100 WBC (Bld) 3.7 % Normal 0.0-7.0 [facility] Comment on above: Performed By: #### B MP, ADIFF, CBC, ANEU, GFR #### [address] [address] Lymphocyte, Absolute 1.3 10 3/mcL Normal 0.9-4.3 [facility] Comment on above: Performed By: #### B MP, ADIFF, CBC, ANEU, GFR #### [address] [address] Lymphocytes/100 WBC (Bld) 12.9 % Low 20.0-40.0 [facility] Comment on above: Performed By: #### B MP, ADIFF, CBC, ANEU, GFR #### [address] [address] Monocyte, Absolute 0.7 10 3/mcL Normal 0.1-1.4 [facility] Comment on above: Performed By: #### B MP, ADIFF, CBC, ANEU, GFR #### [address] [address] Monocytes/100 WBC (Bld) 7.5 % Normal 2.0-13.0 [facility] Comment on above: Performed By: #### B MP, ADIFF, CBC, ANEU, GFR #### [address] [place], [place] [address] Neutrophils/100 WBC (Bld) 75.4 % High 50.0-75.0 [facility] Comment on above: Performed By: #### B MP, ADIFF, CBC, ANEU, GFR #### [address] [address] .GFRon 11-26-2024 GFR 96 ml/min/1.73sqm Normal [facility] Comment on above: Result Comment: GFR Population mean for , Non- Americans Ages 20-29 = 116 mL/min/1.73 sq.m. Ages 30-39 = 107 mL/min/1.73 sq.m. Ages 40-49 = 99 mL/min/1.73 sq.m. Ages 50-59 = 93 mL/min/1.73 sq.m. Ages 60-69 = 85 mL/min/1.73 sq.m. Ages 70+ = 75 mL/min/1.73 sq.m. Chronic Kidney Disease: Less than 60 mL/min/1.73 square meters End Stage Renal Disease: Less than 15 mL/min/1.73 square meters Performed By: #### B MP, ADIFF, CBC, ANEU, GFR #### [address] [address] GFR Non- 79 ml/min/1.73sqm Normal [facility] Comment on above: Result Comment: GFR Population mean for , Non- Americans Ages 20-29 = 116 mL/min/1.73 sq.m. Ages 30-39 = 107 mL/min/1.73 sq.m. Ages 40-49 = 99 mL/min/1.73 sq.m. Ages 50-59 = 93 mL/min/1.73 sq.m. Ages 60-69 = 85 mL/min/1.73 sq.m. Ages 70+ = 75 mL/min/1.73 sq.m. Chronic Kidney Disease: Less than 60 mL/min/1.73 square meters End Stage Renal Disease: Less than 15 mL/min/1.73 square meters Performed By: #### B MP, ADIFF, CBC, ANEU, GFR #### [address] [address] .NEUABSon 11-26-2024 Neutrophil, Absolute 7.4 10 3/mcL Normal 2.3-8.1 [facility] Comment on above: Performed By: #### B MP, ADIFF, CBC, ANEU, GFR #### [address] [address] BMPon 11-26-2024 Chloride [Moles/Vol] 103 mmol/L Normal 98-107 [facility] Comment on above: Performed By: #### B MP, ADIFF, CBC, ANEU, GFR #### [place] [address] Electrolyte Balance 9.0 mEq/L Normal 4.0-15.0 [facility] Comment on above: Performed By: #### B MP, ADIFF, CBC, ANEU, GFR #### [place] [address] BUN/Creatinine Ratio 12 ratio Normal 7-27 [facility] Comment on above: Performed By: #### B MP, ADIFF, CBC, ANEU, GFR #### [place] [address] Calcium [Mass/Vol] 9.0 mg/dL Normal 8.4-10.2 [facility] Comment on above: Performed By: #### B MP, ADIFF, CBC, ANEU, GFR #### [place] [address] CO2 [Moles/Vol] 31 mmol/L Normal 23-31 [facility] Comment on above: Performed By: #### B MP, ADIFF, CBC, ANEU, GFR #### [place] [address] Creatinine [Mass/Vol] 0.93 mg/dL Normal 0.70-1.30 [facility] Comment on above: Result Comment: Test ing performed on Siemens Dimension EXL analyzer using a modified kinetic Konrad technique. Performed By: #### B MP, ADIFF, CBC, ANEU, GFR #### [address] [address] Glucose [Mass/Vol] 111 mg/dL High 83-110 [facility] Comment on above: Performed By: #### B MP, ADIFF, CBC, ANEU, GFR #### [address] [address] Potassium [Moles/Vol] 4.2 mmol/L Normal 3.5-5.1 [facility] Comment on above: Performed By: #### B MP, ADIFF, CBC, ANEU, GFR #### [address] [address] Sodium [Moles/Vol] 143 mmol/L Normal 136-145 [facility] Comment on above: Performed By: #### B MP, ADIFF, CBC, ANEU, GFR #### [place] [id number] Urea nitrogen [Mass/Vol] 11 mg/dL Normal 7-18 [facility] Comment on above: Performed By: #### B MP, ADIFF, CBC, ANEU, GFR #### [address] [address] CBCon 11-26-2024 Erythrocyte distribution width (RBC) [Ratio] 14.9 % Normal 11.5-15.5 [facility] Comment on above: Performed By: #### B MP, ADIFF, CBC, ANEU, GFR #### [address] [address] Hematocrit (Bld) [Volume fraction] 41.5 % Normal 40.0-52.0 [facility] Comment on above: Performed By: #### B MP, ADIFF, CBC, ANEU, GFR #### [address] [address] Hgb 14.2 G/dL Normal 13.0-17.5 [facility] Comment on above: Performed By: #### B MP, ADIFF, CBC, ANEU, GFR #### [address] [address] MCH (RBC) [Entitic mass] 31.8 pg Normal 27.0-33.0 [facility] Comment on above: Performed By: #### B MP, ADIFF, CBC, ANEU, GFR #### [address] [address] MCHC 34.1 G/dL Normal 32.0-36.0 [facility] Comment on above: Performed By: #### B MP, ADIFF, CBC, ANEU, GFR #### [address] [address] MCV (RBC) [Entitic vol] 93.3 fL Normal 81.0-100.0 [facility] Comment on above: Performed By: #### B MP, ADIFF, CBC, ANEU, GFR #### [address] [address] Platelet 287 10 3/mcL Normal 150-450 [facility] Comment on above: Performed By: #### B MP, ADIFF, CBC, ANEU, GFR #### [address] [address] Platelet mean volume (Bld) [Entitic vol] 8.4 fL Normal 6.4-10.5 [facility] Comment on above: Performed By: #### B MP, ADIFF, CBC, ANEU, GFR #### [address] [address] RBC 4.45 10 6/mcL Low 4.50-6.00 [facility] Comment on above: Performed By: #### B MP, ADIFF, CBC, ANEU, GFR #### [address] [address] WBC 9.8 10 3/mcL Normal 4.5-10.8 [facility] Comment on above: Performed By: #### B MP, ADIFF, CBC, ANEU, GFR #### [address] [address] LABORATORYOrdered By: Anton Owens on 11-26-2024 Blood Glucose Testing Reason Routine (11/26/24 8:01 AM) [facility] Work Phone: Glucose [Mass/Vol] 128 mg/dL High 82 - 115 mg/dL [facility] Work Phone: LABORATORYOrdered By: SYSTEM SYSTEM on 11-26-2024 Basophils (Bld) [#/Vol] 0.1 103/mcL Normal 0.0 - 0.2 10^3/mcL AO Workflow SS Basophils/100 WBC (Bld) 0.5 % Normal 0.0 - 2.5 % AO Workflow SS Calcium [Mass/Vol] 9.0 mg/dL Normal 8.4 - 10. 2 mg/dL AO ADM SS Chloride [Moles/Vol] 103 mmol/L Normal 98 - 10 7 mmol/L AO ADM SS CO2 [Moles/Vol] 31 mmol/L Normal 23 - 31 mmol/L AO ADM SS Creatinine [Mass/Vol] 0.93 mg/dL Normal 0.70 - 1.30 mg/dL AO ADM SS Comment on above: Interpretive Data: T esting performed on Siemens Dimension EXL analyzer using a modified kinetic Konrad technique. Electrolyte Balance 9.0 mEq/L Normal 4.0 - 15 .0 mEq/L AO ADM SS Eosinophil, Absolute 0.4 103/mcL Normal 0.0 - 0 .7 10^3/mcL AO Workflow SS Eosinophils/100 WBC (Bld) 3.7 % Normal 0.0 - 7.0 % AO Workflow SS Erythrocyte distribution width (RBC) [Ratio] 14.9 % Normal 11.5 - 15.5 % AO Workflow SS GFR/1.73 sq M.predicted among blacks MDRD (S/P/Bld) [Vol rate/Area] 96 ml/min/1.73sqm Invalid Interpretation Code AO Chemistry S Comment on above: Interpretive Data: GFR Population mean for , Non- Americans Ages 20-29 = 116 mL/min/1.73 sq.m. Ages 30-39 = 107 mL/min/1.73 sq.m. Ages 40-49 = 99 mL/min/1.73 sq.m. Ages 50-59 = 93 mL/min/1.73 sq.m. Ages 60-69 = 85 mL/min/1.73 sq.m. Ages 70+ = 75 mL/min/1.73 sq.m. Chronic Kidney Disease: Less than 60 mL/min/1.73 square meters End Stage Renal Disease: Less than 15 mL/min/1.73 square meters GFR/1.73 sq M.predicted among non-blacks MDRD (S/P/Bld) [Vol rate/Area] 79 ml/min/1.73sqm Invalid Interpretation Code AO Chemistry S Comment on above: Interpretive Data: GFR Population mean for , Non- Americans Ages 20-29 = 116 mL/min/1.73 sq.m. Ages 30-39 = 107 mL/min/1.73 sq.m. Ages 40-49 = 99 mL/min/1.73 sq.m. Ages 50-59 = 93 mL/min/1.73 sq.m. Ages 60-69 = 85 mL/min/1.73 sq.m. Ages 70+ = 75 mL/min/1.73 sq.m. Chronic Kidney Disease: Less than 60 mL/min/1.73 square meters End Stage Renal Disease: Less than 15 mL/min/1.73 square meters Glucose [Mass/Vol] 111 mg/dL High 83 - 110 mg/dL AO ADM SS Hematocrit (Bld) [Volume fraction] 41.5 % Normal 40.0 - 52.0 % AO Workflow SS Hemoglobin (Bld) [Mass/Vol] 14.2 G/dL Normal 13.0 - 17.5 G/dL AO Workflow SS Lymphocytes (Bld) [#/Vol] 1.3 103/mcL Normal 0.9 - 4.3 10^3/mcL AO Workflow SS Lymphocytes/100 WBC (Bld) 12.9 % Low 20.0 - 40.0 % AO Workflow SS MCH (RBC) [Entitic mass] 31.8 pg Normal 27.0 - 33.0 pg AO Workflow SS MCHC 34.1 G/dL Normal 32.0 - 36.0 G/dL AO Workflow SS MCV (RBC) [Entitic vol] 93.3 fL Normal 81.0 - 100.0 fL AO Workflow SS Monocytes (Bld) [#/Vol] 0.7 103/mcL Normal 0.1 - 1.4 10^3/mcL AO Workflow SS Monocytes/100 WBC (Bld) 7.5 % Normal 2.0 - 13.0 % AO Workflow SS Neutrophils (Bld) [#/Vol] 7.4 103/mcL Normal 2.3 - 8.1 10^3/mcL AO Workflow SS Neutrophils/100 WBC (Bld) 75.4 % High 50.0 - 75.0 % AO Workflow SS Platelet mean volume (Bld) [Entitic vol] 8.4 fL Normal 6.4 - 10.5 fL AO Workflow SS Platelets (Bld) [#/Vol] 287 103/mcL Normal 150 - 450 10^3/mcL AO Workflow SS Potassium [Moles/Vol] 4.2 mmol/L Normal 3.5 - 5.1 mmol/L AO ADM SS RBC (Bld) [#/Vol] 4.45 106/mcL Low 4.50 - 6.0 0 10^6/mcL AO Workflow SS Sodium [Moles/Vol] 143 mmol/L Normal 136 - 145 mmol/L AO ADM SS Urea nitrogen [Mass/Vol] 11 mg/dL Normal 7 - 18 mg/dL AO ADM SS Urea nitrogen/Creatinine [Mass ratio] 12 ratio Normal 7 - 27 ratio AO ADM SS WBC (Bld) [#/Vol] 9.8 103/mcL Normal 4.5 - 10.8 10^3/mcL AO Workflow SS LABORATORYOrdered By: Marcus Wilkins on 11-25-2024 Blood Glucose Testing Reason Routine (11/25/24 9:13 PM) [facility] Work Phone: Glucose [Mass/Vol] 124 mg/dL High 82 - 115 mg/dL [facility] Work Phone: LABORATORYOrdered By: Denny Pena on 11-25-2024 Blood Glucose Testing Reason Routine (11/25/24 4:49 PM) [facility] Work Phone: Glucose [Mass/Vol] 113 mg/dL Normal 82 - 115 mg/dL [facility] Work Phone: Urine Cultureon 10-10-2024 URC Normal [facility] Comment on above: Performed By: #### M 100.2707 ####[facility] [address] [place], [address] Culture, Blood (WB)on 2023 CUB Blood cultures x2, from two different sites No growth in 5 days. Normal [facility] Comment on above: Performed By: #### M 200.1000 ####[facility] [address] [place], [place], [id number] 12 Lead EKGon 10-07-2024 12 Lead EKG Normal [facility] Abdomen/Pelvis W IV Cont ONL Yon 10-07-2024 Abdomen/Pelvis W IV Cont ONLY Normal [facility] Absolute neutrophil countOrd ered By: Nikolai Barr on 10-07-2024 Neutrophils (Bld) [#/Vol] 8.0 10*3/uL High 2.0-7.7 [facility] Automated blood erythrocyte countOrdered By: Nikolai Barr on 10-07-2024 RBC (Bld) [#/Vol] 5.16 10*6/uL Normal 4.6-6.2 [facility] Comment on above: Performed By: #### L 500.2500, L100.0100, L501.4020, L500.3400, L501.2450 ####[facility] [address] [place], [address] Automated blood hematocrit ( percentage)Ordered By: Nikolai Barr on 10-07-2024 Hematocrit (Bld) [Volume fraction] 49.0 % Normal 40-54 [facility] Comment on above: Performed By: #### L 500.2500, L100.0100, L501.4020, L500.3400, L501.2450 ####[facility] [address] [place], [place], [id number] Automated lymphocyte count a s percentage of total leukocytesOrdered By: Nikolai aBrr on 10-07-2024 Lymphocytes/100 WBC (Bld) 16.3 % Low 19-41 [facility] Comment on above: Performed By: #### L 500.2500, L100.0100, L501.4020, L500.3400, L501.2450 ####[facility] [address] [place], [address] Basic Metabolic Profile (BMP )on 10-07-2024 BUN/CRE 22.2 RATIO High 10-20 [facility] Comment on above: Order Comment: 'TROP ' Serial specimen #1, #2 or #3: 1 Performed By: #### L 500.2500, L100.0100, L501.4020, L500.3400, L501.2450 ####[facility] [address] [place], [address] CA,Total 9.0 mg/dL Normal 8.5-10.1 [facility] Comment on above: Order Comment: 'TROP ' Serial specimen #1, #2 or #3: 1 Performed By: #### L 500.2500, L100.0100, L501.4020, L500.3400, L501.2450 ####[facility] [address] [place], [address] ECRCL 68.67 ml/min Normal [facility] Comment on above: Order Comment: 'TROP ' Serial specimen #1, #2 or #3: 1 Performed By: #### L 500.2500, L100.0100, L501.4020, L500.3400, L501.2450 ####[facility] [address] [place], [address] EST GFR - AA 95 mL/min Normal >60 [facility] Comment on above: Order Comment: 'TROP ' Serial specimen #1, #2 or #3: 1 Result Comment: Afri can Burmese GFR Calc Performed By: #### L 500.2500, L100.0100, L501.4020, L500.3400, L501.2450 ####[facility] [address] [place], [address] GAP 6 Normal 5-15 [facility] Comment on above: Order Comment: 'TROP ' Serial specimen #1, #2 or #3: 1 Performed By: #### L 500.2500, L100.0100, L501.4020, L500.3400, L501.2450 ####[facility] [address] [place], [address] GFR/1.73 sq M.predicted among non-blacks MDRD (S/P/Bld) [Vol rate/Area] 78 mL/min/{1.73_m2} Normal >60 [facility] Comment on above: Order Comment: 'TROP ' Serial specimen #1, #2 or #3: 1 Result Comment: Non- GFR Calc Performed By: #### L 500.2500, L100.0100, L501.4020, L500.3400, L501.2450 ####[facility] [address] [place], [place], [phone] Basophil percentageOrdered B y: Nikolai Barr on 10-07-2024 Basophils/100 WBC (Bld) 0.8 % Normal 0-1 [facility] Comment on above: Performed By: #### L 500.2500, L100.0100, L501.4020, L500.3400, L501.2450 ####[facility] [address] [place], [place], [phone] Bilirubin Test strip Ql (U)O rdered By: Nikolai Barr on 10-07-2024 Bilirubin Ql (U) Negative Negative [facility] Bilirubin directOrdered By: Nikolai Barr on 10-07-2024 Bilirubin.direct [Mass/Vol] 0.14 mg/dL Normal 0.00-0.30 [facility] Comment on above: Order Comment: 'TROP ' Serial specimen #1, #2 or #3: 1 Performed By: #### L 500.2500, L100.0100, L501.4020, L500.3400, L501.2450 ####[facility] [address] [place], [place], [phone](266) Bilirubin, totalOrdered By: Nikolai Barr on 10-07-2024 Bilirubin [Mass/Vol] 0.70 mg/dL Normal 0.20-1.00 [facility] Comment on above: For patients on eltr ombopag therapy, use of Dimension Sims TBIL is not recommended. Order Comment: 'TROP ' Serial specimen #1, #2 or #3: 1 Result Comment: For patients on eltrombopag therapy, use of Dimension Sims TBIL is not recommended. Performed By: #### L 500.2500, L100.0100, L501.4020, L500.3400, L501.2450 ####[facility] [address] [place], [address] Blood urea nitrogen (BUN)/cr eatinine ratioOrdered By: Nikolai Barr on 10-07-2024 Urea nitrogen/Creatinine [Mass ratio] 22.2 mg/mg High 10-20 [facility] CBC W/Diff, Automatedon 09-10 Absolute Lymph 1.91 X10 3/uL Normal 0.83-4.51 [facility] Comment on above: Performed By: #### L 500.2500, L100.0100, L501.4020, L500.3400, L501.2450 ####[facility] [address] [place], [address] Absolute Neut 8.0 X10 3/uL High 2.0-7.7 [facility] Comment on above: Performed By: #### L 500.2500, L100.0100, L501.4020, L500.3400, L501.2450 ####[facility] [address] [place], [address] IG% 0.900 Normal 0.0-0.9 [facility] Comment on above: Result Comment: IG% - Immature Granulocytes (promyelocytes, myelocytes andmetamyelocytes) > 1% indicates that a LEFT SHIFT is Present. Performed By: #### L 500.2500, L100.0100, L501.4020, L500.3400, L501.2450 ####[facility] [address] [place], [address] Nucleated RBC (Bld) [#/Vol] 0.2 10*3/uL Normal 0-5 [facility] Comment on above: Performed By: #### L 500.2500, L100.0100, L501.4020, L500.3400, L501.2450 ####[facility] [address] [place], [address] RDW SD 51.8 fl High 35.1-43.9 [facility] Comment on above: Performed By: #### L 500.2500, L100.0100, L501.4020, L500.3400, L501.2450 ####[facility] [address] [place], [address] Carbon dioxide measurementOr dered By: Nikolai Barr on 10-07-2024 CO2 [Moles/Vol] 24.0 mmol/L Normal 21.0-32.0 [facility] Comment on above: Order Comment: 'TROP ' Serial specimen #1, #2 or #3: 1 Performed By: #### L 500.2500, L100.0100, L501.4020, L500.3400, L501.2450 ####[facility] [address] [place], [address] Chloride measurementOrdered By: Nikolai Barr on 10-07-2024 Chloride [Moles/Vol] 108 mmol/L High 98-107 [facility] Comment on above: Order Comment: 'TROP ' Serial specimen #1, #2 or #3: 1 Performed By: #### L 500.2500, L100.0100, L501.4020, L500.3400, L501.2450 ####[facility] [address] [place], [address] Emergency Department Summary on 10-07-2024 Emergency Department Summary Normal [facility] Eosinophil percentageOrdered By: Nikolai Barr on 10-07-2024 Eosinophils/100 WBC (Bld) 6.1 % High 0-5 [facility] Comment on above: Performed By: #### L 500.2500, L100.0100, L501.4020, L500.3400, L501.2450 ####[facility] [address] [place], [address] Epithelial cells.squamous LM Ql (Urine sed)Ordered By: Nikolai Barr on 10-07-2024 Epithelial cells.squamous LM.HPF (Urine sed) [#/Area] 0 /[HPF] 0-5 [facility] Erythrocyte distribution wid th ratioOrdered By: Nikolai Barr on 10-07-2024 Erythrocyte distribution width (RBC) [Ratio] 14.6 % Normal 11.6-14.6 [facility] Comment on above: Performed By: #### L 500.2500, L100.0100, L501.4020, L500.3400, L501.2450 ####[facility] [address] [place], [address] Erythrocyte distribution wid th standard deviationOrdered By: Nikolai Barr on 10-07-2024 Erythrocyte distribution width (RBC) [Entitic vol] 51.8 fL High 35.1-43.9 [facility] Estimated glomerular filtrat ion rate (GFR) AmericanOrdered By: Nikolai Barr on 10-07-2024 Estimated GFR (MDRD) Amer 95 mL/min >60 [facility] Comment on above: GFR Calc Estimation of creatinine lima aranceOrdered By: Nikolai Barr on 10-07-2024 Estimated Creatinine Clearance Calc 68.67 ml/min [facility] Glomerular filtration rate ( GFR) estimationOrdered By: Nikolai Barr on 10-07-2024 Estimated GFR (MDRD) Non-Af Amer 78 mL/min >60 [facility] Comment on above: Non- GFR Calc Glucose Ql (U)Ordered By: Randall Barr on 10-07-2024 Glucose (U) [Mass/Vol] 1000 mg/dL High Normal [facility] Glucose measurementOrdered B y: Nikolai Bookerehne on 10-07-2024 Glucose [Mass/Vol] 98 mg/dL Normal 74-106 [facility] Comment on above: Order Comment: 'TROP ' Serial specimen #1, #2 or #3: 1 Performed By: #### L 500.2500, L100.0100, L501.4020, L500.3400, L501.2450 ####[facility] [address] [place], [place], [address] Hemoglobin measurementOrdere d By: Nikolai Momo on 10-07-2024 Hemoglobin (Bld) [Mass/Vol] 16.6 g/dL High 13.0-16.5 [facility] Comment on above: Performed By: #### L 500.2500, L100.0100, L501.4020, L500.3400, L501.2450 ####[facility] [address] [place], [place], [id number] Immature granulocytes/100 WB C Auto (Bld)Ordered By: Nikolai Momo on 10-07-2024 Immature granulocytes/100 WBC (Bld) 0.900 % 0.0-0.9 [facility] Comment on above: IG% - Immature Granu locytes (promyelocytes, myelocytes and metamyelocytes) > 1% indicates that a LEFT SHIFT is Present. Ketones Test strip Ql (U)Ord ered By: Nikolai Momo on 10-07-2024 Ketones Ql (U) Negative Negative [facility] L501.4020on 10-07-2024 TROPONIN-I HS 9 pg/mL Normal 3.0-78.0 [facility] Comment on above: Order Comment: 'TROP ' Serial specimen #1, #2 or #3: 1 Result Comment: Chinmay granados Note: New Test Units and Gender Specific Reference Ranges. For more information see Policy Stat Procedure Sims High Sensitivity Troponin (TNIH) and attachments. Performed By: #### L 500.2500, L100.0100, L501.4020, L500.3400, L501.2450 ####[facility] [address] [place], [address] Lipase measurementOrdered By : Nikolai Barr on 10-07-2024 Lipase [Catalytic activity/Vol] 137 U/L High 13-75 [facility] Comment on above: Please note:LIPASE r evised reference range effective 23. New Lipase methodology. Expected to produce lower values than the previous assay method. NEW Reference Range: 13 - 75 U/L Order Comment: 'TROP ' Serial specimen #1, #2 or #3: 1 Result Comment: Chinmay granados note:LIPASE revised reference range effective 23.New Lipase methodology. Expected to produce lower valuesthan the previous assay method.NEW Reference Range: 13 - 75 U/L Performed By: #### L 500.2500, L100.0100, L501.4020, L500.3400, L501.2450 ####[facility] [address] [place], [address] Liver Profileon 10-07-2024 ALK P 112 U/L Normal 45-117 [facility] Comment on above: Order Comment: 'TROP ' Serial specimen #1, #2 or #3: 1 Performed By: #### L 500.2500, L100.0100, L501.4020, L500.3400, L501.2450 ####[facility] [address] [place], [address] T PROT 7.4 g/dL Normal 6.4-8.2 [facility] Comment on above: Order Comment: 'TROP ' Serial specimen #1, #2 or #3: 1 Performed By: #### L 500.2500, L100.0100, L501.4020, L500.3400, L501.2450 ####[facility] [address] [place], [address] Liver ProfileOrdered By: Javon Barr on 10-07-2024 AST [Catalytic activity/Vol] 35 U/L Normal 15-37 [facility] Comment on above: Moderate Hemolysis, Result may be falsely increased. Order Comment: 'TROP ' Serial specimen #1, #2 or #3: 1 Result Comment: Mode rate Hemolysis, Result may be falsely increased. Performed By: #### L 500.2500, L100.0100, L501.4020, L500.3400, L501.2450 ####[facility] [address] [place], [address] Lymphocytes Auto (Unsp spec) [#/Vol]Ordered By: Nikolai Barr on 10-07-2024 Lymphocytes (Bld) [#/Vol] 1.91 10*3/uL 0.83-4.51 [facility] MCV (mean corpuscular volume ) determinationOrdered By: Nikolai Barr on 10-07-2024 MCV (RBC) [Entitic vol] 95.0 fL High 80-94 [facility] Comment on above: Performed By: #### L 500.2500, L100.0100, L501.4020, L500.3400, L501.2450 ####[facility] [address] [place], [address] Mean corpuscular hemoglobin (MCH) determinationOrdered By: Nikolai Barr on 10-07-2024 MCH (RBC) [Entitic mass] 32.2 pg High 27.0-32.0 [facility] Comment on above: Performed By: #### L 500.2500, L100.0100, L501.4020, L500.3400, L501.2450 ####[facility] [address] [place], [address] Mean corpuscular hemoglobin concentration (MCHC) determinationOrdered By: Nikolai Barr on 10-07-2024 MCHC (RBC) [Mass/Vol] 33.9 g/dL Normal 32-36 [facility] Comment on above: Performed By: #### L 500.2500, L100.0100, L501.4020, L500.3400, L501.2450 ####[facility] [address] [place], [address] Mean platelet volume determi nationOrdered By: Nikolai Barr on 10-07-2024 Platelet mean volume (Bld) [Entitic vol] 9.4 fL Normal 6.2-12.0 [facility] Comment on above: Performed By: #### L 500.2500, L100.0100, L501.4020, L500.3400, L501.2450 ####[facility] [address] [place], [address] Microscopic analysis of urin e for red blood cells (RBC)Ordered By: Nikolai Barr on 10-07-2024 Urine RBC 0 SEEN /hpf 0-5 [facility] Monocyte percentageOrdered B y: Nikolai Barr on 10-07-2024 Monocytes/100 WBC (Bld) 7.8 % Normal 0-10 [facility] Comment on above: Performed By: #### L 500.2500, L100.0100, L501.4020, L500.3400, L501.2450 ####[facility] [address] [place], [address] Mucus LM Ql (Urine sed)Order ed By: Nikolai Barr on 10-07-2024 Mucus Ql (Urine sed) 0 SEEN /hpf [facility] Neutrophil percentageOrdered By: Nikolai Barr on 10-07-2024 Neutrophils/100 WBC (Bld) 68.1 % Normal 47-70 [facility] Comment on above: Performed By: #### L 500.2500, L100.0100, L501.4020, L500.3400, L501.2450 ####[facility] [address] [facility] [place], [address] Nitrite Test strip Ql (U)Ord ered By: Nikolai Barr on 10-07-2024 Nitrite Ql (U) Negative Negative [facility] Nucleated red blood cell per centageOrdered By: Nikolai Barr on 10-07-2024 Nucleated RBC/100 WBC (Bld) [Ratio] 0.2 % 0-5 [facility] Platelet countOrdered By: Randall Barr on 10-07-2024 Platelets (Bld) [#/Vol] 365 10*3/uL Normal 150-450 [facility] Comment on above: Performed By: #### L 500.2500, L100.0100, L501.4020, L500.3400, L501.2450 ####[facility] [address] [place], [address] Potassium measurementOrdered By: Nikolai Barr on 10-07-2024 Potassium [Moles/Vol] 4.4 mmol/L Normal 3.5-5.1 [facility] Comment on above: Moderate Hemolysis, Result may be falsely increased. Order Comment: 'TROP ' Serial specimen #1, #2 or #3: 1 Result Comment: Mode rate Hemolysis, Result may be falsely increased. Performed By: #### L 500.2500, L100.0100, L501.4020, L500.3400, L501.2450 ####[facility] [address] [place], [address] Protein Test strip Ql (U)Ord ered By: Nikolai Barr on 10-07-2024 Protein Ql (U) 30 mg/dl High Negative [facility] Serum anion gap measurementO rdered By: Nikolai Barr on 10-07-2024 Anion gap [Moles/Vol] 6 mmol/L 5-15 [facility] Serum globulin measurementOr dered By: Nikolai Barr on 10-07-2024 Globulin (S) [Mass/Vol] 3.9 g/dL Normal 2.2-4.2 [facility] Comment on above: Order Comment: 'TROP ' Serial specimen #1, #2 or #3: 1 Performed By: #### L 500.2500, L100.0100, L501.4020, L500.3400, L501.2450 ####[facility] [address] [place], [address] Serum or plasma alanine medellin otransferase (ALT) measurementOrdered By: Nikolai Barr on 10-07-2024 ALT [Catalytic activity/Vol] 46 U/L Normal 16-61 [facility] Comment on above: Order Comment: 'TROP ' Serial specimen #1, #2 or #3: 1 Performed By: #### L 500.2500, L100.0100, L501.4020, L500.3400, L501.2450 ####[facility] [address] [place], [address] Serum or plasma albumin odette urement (mass/volume)Ordered By: Nikolai Barr on 10-07-2024 Albumin [Mass/Vol] 3.5 g/dL Normal 3.2-5.0 [facility] Comment on above: Order Comment: 'TROP ' Serial specimen #1, #2 or #3: 1 Performed By: #### L 500.2500, L100.0100, L501.4020, L500.3400, L501.2450 ####[facility] [address] [place], [place], [id number] Serum or plasma alkaline chris sphatase measurementOrdered By: Nikolai Barr on 10-07-2024 ALP [Catalytic activity/Vol] 112 U/L 45-117 [facility] Serum or plasma calcium odette urement (mass/volume)Ordered By: Nikolai Barr on 10-07-2024 Calcium [Mass/Vol] 9.0 mg/dL 8.5-10.1 [facility] Serum or plasma creatinine m easurement (mass/volume)Ordered By: Nikolai Barr on 10-07-2024 Creatinine [Mass/Vol] 0.99 mg/dL Normal 0.70-1.30 [facility] Comment on above: The validity of the calculated GFR & GFRAA in patients over 70 years has not been determined. Clinical correlation is essential. Order Comment: 'TROP ' Serial specimen #1, #2 or #3: 1 Result Comment: The validity of the calculated GFR GFRAA in patients over70 years has not been determined. Clinical correlation isessential. Performed By: #### L 500.2500, L100.0100, L501.4020, L500.3400, L501.2450 ####[facility] [address] [facility] [phone] Serum or plasma urea nitroge n measurement (mass/volume)Ordered By: Nikolai Barr on 10-07-2024 Urea nitrogen [Mass/Vol] 22 mg/dL High 7-18 [facility] Comment on above: Order Comment: 'TROP ' Serial specimen #1, #2 or #3: 1 Performed By: #### L 500.2500, L100.0100, L501.4020, L500.3400, L501.2450 ####[facility] [address] [place] [id number] Sodium levelOrdered By: Roni Barr on 10-07-2024 Sodium [Moles/Vol] 138 mmol/L Normal 136-145 [facility] Comment on above: Order Comment: 'TROP ' Serial specimen #1, #2 or #3: 1 Performed By: #### L 500.2500, L100.0100, L501.4020, L500.3400, L501.2450 ####[facility] [address] [place] [id number] Total proteinOrdered By: Javon Barr on 10-07-2024 Protein [Mass/Vol] 7.4 g/dL 6.4-8.2 [facility] Troponin IOrdered By: Nikolai Barr on 10-07-2024 Troponin I High Sensitivity 9 pg/mL 3.0-78.0 [facility] Comment on above: Please Note: [place] t Units and Gender Specific Reference Ranges. For more information see Policy Stat Procedure Sims High Sensitivity Troponin (TNIH) and attachments. Urinalysis, Completeon 10-07 WBC >100 SEEN Normal 0-5 [facility] Comment on above: Order Comment: CLEAN CATCH Performed By: #### L 400.0001 ####[facility] [address] [place] [id number] BACTERIA 0 SEEN Normal None Seen [facility] Comment on above: Order Comment: CLEAN CATCH Performed By: #### L 400.0001 ####[facility] [address] [place], [address] EPI,SQUAMOUS 0 SEEN Normal 0-5 [facility] Comment on above: Order Comment: CLEAN CATCH Performed By: #### L 400.0001 ####[facility] [address] [place], [address] Mucus Ql (Urine sed) 0 SEEN Normal [facility] Comment on above: Order Comment: CLEAN CATCH Performed By: #### L 400.0001 ####[facility] [address] [place], [address] RBC 0 SEEN Normal 0-5 [facility] Comment on above: Order Comment: CLEAN CATCH Performed By: #### L 400.0001 ####[facility] [address] [place], [address] Urine blood detectionOrdered By: Nikolai Barr on 10-07-2024 Urine Occult Blood 150 /ul High Negative [facility] Urine clarityOrdered By: Javon Barr on 10-07-2024 Clarity (U) Sl. Cloudy Clear [facility] Urine color determinationOrd ered By: Nikolai Barr on 10-07-2024 Color (U) Yellow Yellow [facility] Urine cultureOrdered By: Javon Barr on 10-07-2024 Bacteria identified Cx Nom (U) ESBL Escherichia coli Abnormal [facility] Urine leukocyte esterase det ection by dipstickOrdered By: Nikolai Barr on 10-07-2024 Leukocyte esterase Test strip Ql (U) 500 /ul High Negative [facility] Urine pHOrdered By: Nikolai hunter on 10-07-2024 pH (U) 6.5 [pH] 5.0 - 8.0 [facility] Urine sediment bacteria coun t by microscopy (number/high power field)Ordered By: Nikolai Barr on 10-07-2024 Bacteria LM.HPF (Urine sed) [#/Area] 0 /[HPF] None Seen [facility] Urine specific gravity measu rementOrdered By: Nikolai Kwanne on 10-07-2024 Specific gravity (U) [Rel density] 1.005 1.002-1.030 [facility] Urobilinogen Ql (U)Ordered B y: Nikolai Bookerehne on 10-07-2024 Urine Urobilinogen Normal mg/dl Normal [facility] White blood cell (WBC) count Ordered By: Nikolai Momo on 10-07-2024 WBC (Bld) [#/Vol] 11.7 10*3/uL High 4.4-11.0 [facility] Comment on above: Performed By: #### L 500.2500, L100.0100, L501.4020, L500.3400, L501.2450 ####[facility] [address] [place], [address] White blood cell countOrdere d By: Nikolaiedie Barr on 10-07-2024 Urine WBC >100 SEEN /hpf 0-5 [facility] Absolute neutrophil countOrd ered By: Annette Holden on 10-05-2024 Neutrophils (Bld) [#/Vol] 18.3 10*3/uL High 2.0-7.7 [facility] Basic Metabolic Profile (BMP )on 10-05-2024 BUN/CRE 29.1 RATIO High 10-20 [facility] Comment on above: Performed By: #### L 100.0100, L500.2500 ####[facility] [address] [place], [address] CA,Total 9.3 mg/dL Normal 8.5-10.1 [facility] Comment on above: Performed By: #### L 100.0100, L500.2500 ####[facility] [address] [place], [address] Chloride [Moles/Vol] 108 mmol/L High 98-107 [facility] Comment on above: Performed By: #### L 100.0100, L500.2500 ####[facility] [address] [place], [address] CO2 [Moles/Vol] 23.0 mmol/L Normal 21.0-32.0 [facility] Comment on above: Performed By: #### L 100.0100, L500.2500 ####[facility] [address] [place], [address] Creatinine [Mass/Vol] 1.00 mg/dL Normal 0.70-1.30 [facility] Comment on above: Result Comment: The validity of the calculated GFR GFRAA in patients over70 years has not been determined. Clinical correlation isessential. Performed By: #### L 100.0100, L500.2500 ####[facility] [address] [place], [address] ECRCL 67.98 ml/min Normal [facility] Comment on above: Performed By: #### L 100.0100, L500.2500 ####[facility] [address] [place], [address] EST GFR - AA 94 mL/min Normal >60 [facility] Comment on above: Result Comment: Afri can Burmese GFR Calc Performed By: #### L 100.0100, L500.2500 ####[facility] [address] [place], [address] GAP 5 Normal 5-15 [facility] Comment on above: Performed By: #### L 100.0100, L500.2500 ####[facility] [address] [place], [address] GFR/1.73 sq M.predicted among non-blacks MDRD (S/P/Bld) [Vol rate/Area] 78 mL/min/{1.73_m2} Normal >60 [facility] Comment on above: Result Comment: Non- GFR Calc Performed By: #### L 100.0100, L500.2500 ####[facility] [address] [place], [address] Glucose [Mass/Vol] 210 mg/dL High 74-106 [facility] Comment on above: Result Comment: Gluc ose result greater than or equal to 200 mg/dLsuggests DIABETES MELLITUS per A.D.A. criteria. Performed By: #### L 100.0100, L500.2500 ####[facility] [address] [place], [address] Potassium [Moles/Vol] 4.5 mmol/L Normal 3.5-5.1 [facility] Comment on above: Performed By: #### L 100.0100, L500.2500 ####[facility] [address] [place], [address] Sodium [Moles/Vol] 137 mmol/L Normal 136-145 [facility] Comment on above: Performed By: #### L 100.0100, L500.2500 ####[facility] [address] [place], [address] Urea nitrogen [Mass/Vol] 29 mg/dL High 7-18 [facility] Comment on above: Performed By: #### L 100.0100, L500.2500 ####[facility] [address] [place], [address] Basophil percentageOrdered B y: Annette Holden on 10-05-2024 Basophils/100 WBC (Bld) 0.3 % 0-1 [facility] Bedside Glucoseon 10-05-2024 FINGERSTICK GLU 288 mg/dL High 74-106 [facility] Comment on above: Result Comment: SARAH NATH OF PATIENT CARE PER NURSING PROTOCOL Performed By: #### L 501.080 ####[facility] [address] [place], [address] FINGERSTICK GLU 206 mg/dL High 74-106 [facility] Comment on above: Result Comment: SARAH GEMENT OF PATIENT CARE PER NURSING PROTOCOL Performed By: #### L 501.080 ####[facility] [address] [place], [address] FINGERSTICK GLU 301 mg/dL High 74-106 [facility] Comment on above: Result Comment: SARAH GEMENT OF PATIENT CARE PER NURSING PROTOCOL Performed By: #### L 501.080 ####[facility] [address] [place], [address] Blood urea nitrogen (BUN)/cr eatinine ratioOrdered By: Annette Holden on 10-05-2024 Urea nitrogen/Creatinine [Mass ratio] 29.1 mg/mg High - [facility] CBC W/Diff, Automatedon 09-10 Absolute Lymph 1.05 X10 3/uL Normal 0.83-4.51 [facility] Comment on above: Performed By: #### L 100.0100, L500.2500 ####[facility] [address] [place], [address] Absolute Neut 18.3 X10 3/uL High 2.0-7.7 [facility] Comment on above: Performed By: #### L 100.0100, L500.2500 ####[facility] [address] [place], [address] Basophils/100 WBC (Bld) 0.3 % Normal 0-1 [facility] Comment on above: Performed By: #### L 100.0100, L500.2500 ####[facility] [address] [place], [address] Eosinophils/100 WBC (Bld) 0.1 % Normal 0-5 [facility] Comment on above: Performed By: #### L 100.0100, L500.2500 ####[facility] [address] [place], [address] Erythrocyte distribution width (RBC) [Ratio] 14.6 % Normal 11.6-14.6 [facility] Comment on above: Performed By: #### L 100.0100, L500.2500 ####[facility] [address] [place], [address] Hematocrit (Bld) [Volume fraction] 43.0 % Normal 40-54 [facility] Comment on above: Performed By: #### L 100.0100, L500.2500 ####[facility] [address] [place], [address] Hemoglobin (Bld) [Mass/Vol] 14.3 g/dL Normal 13.0-16.5 [facility] Comment on above: Performed By: #### L 100.0100, L500.2500 ####[facility] [address] [place], [address] IG% 0.500 Normal 0.0-0.9 [facility] Comment on above: Result Comment: IG% - Immature Granulocytes (promyelocytes, myelocytes andmetamyelocytes) > 1% indicates that a LEFT SHIFT is Present. Performed By: #### L 100.0100, L500.2500 ####[facility] [address] [place], [address] Lymphocytes/100 WBC (Bld) 5.2 % Low 19-41 [facility] Comment on above: Performed By: #### L 100.0100, L500.2500 ####[facility] [address] [place], [address] MCH (RBC) [Entitic mass] 32.2 pg High 27.0-32.0 [facility] Comment on above: Performed By: #### L 100.0100, L500.2500 ####[facility] [address] [place], [address] MCHC (RBC) [Mass/Vol] 33.3 g/dL Normal 32-36 [facility] Comment on above: Performed By: #### L 100.0100, L500.2500 ####[facility] [address] [place], [address] MCV (RBC) [Entitic vol] 96.8 fL High 80-94 [facility] Comment on above: Performed By: #### L 100.0100, L500.2500 ####[facility] [address] [place], [address] Monocytes/100 WBC (Bld) 3.0 % Normal 0-10 [facility] Comment on above: Performed By: #### L 100.0100, L500.2500 ####[facility] [address] [place], [address] Neutrophils/100 WBC (Bld) 90.9 % High 47-70 [facility] Comment on above: Performed By: #### L 100.0100, L500.2500 ####[facility] [address] [place], [address] Nucleated RBC (Bld) [#/Vol] 0 10*3/uL Normal 0-5 [facility] Comment on above: Performed By: #### L 100.0100, L500.2500 ####[facility] [address] [place], [address] Platelet mean volume (Bld) [Entitic vol] 9.8 fL Normal 6.2-12.0 [facility] Comment on above: Performed By: #### L 100.0100, L500.2500 ####[facility] [address] [place], [address] Platelets (Bld) [#/Vol] 310 10*3/uL Normal 150-450 [facility] Comment on above: Performed By: #### L 100.0100, L500.2500 ####[facility] [address] [place], [address] RBC (Bld) [#/Vol] 4.44 10*6/uL Low 4.6-6.2 [facility] Comment on above: Performed By: #### L 100.0100, L500.2500 ####[facility] [address] [place], [address] RDW SD 52.1 fl High 35.1-43.9 [facility] Comment on above: Performed By: #### L 100.0100, L500.2500 ####[facility] [address] [place], [address] WBC (Bld) [#/Vol] 20.1 10*3/uL High 4.4-11.0 [facility] Comment on above: Performed By: #### L 100.0100, L500.2500 ####[facility] [address] [place], [address] Carbon dioxide measurementOr dered By: Annette Holden on 10-05-2024 CO2 [Moles/Vol] 23.0 mmol/L 21.0-32.0 [facility] Chloride measurementOrdered By: Annette Holden on 10-05-2024 Chloride [Moles/Vol] 108 mmol/L High 98-107 [facility] Discharge Instructionon 11-2 Discharge Instruction Normal [facility] Eosinophil percentageOrdered By: Annette Holden on 10-05-2024 Eosinophils/100 WBC (Bld) 0.1 % 0-5 [facility] Erythrocyte distribution wid th ratioOrdered By: Annette Holden on 10-05-2024 Erythrocyte distribution width (RBC) [Ratio] 14.6 % 11.6-14.6 [facility] Erythrocyte distribution wid th standard deviationOrdered By: Annette Holden on 10-05-2024 Erythrocyte distribution width (RBC) [Entitic vol] 52.1 fL High 35.1-43.9 [facility] Estimated glomerular filtrat ion rate (GFR) AmericanOrdered By: Annette Holden on 10-05-2024 Estimated GFR (MDRD) Amer 94 mL/min >60 [facility] Comment on above: GFR Calc Estimation of creatinine lima aranceOrdered By: Annette Holden on 10-05-2024 Estimated Creatinine Clearance Calc 67.98 ml/min [facility] Glomerular filtration rate ( GFR) estimationOrdered By: Annette Holden on 10-05-2024 Estimated GFR (MDRD) Non-Af Amer 78 mL/min >60 [facility] Comment on above: Non- GFR Calc Glucose measurementOrdered B y: Annette Holden on 10-05-2024 Glucose [Mass/Vol] 210 mg/dL High 74-106 [facility] Comment on above: Glucose result great er than or equal to 200 mg/dLsuggests DIABETES MELLITUS per A.D.A. criteria. [facility]dered By: Annette Holden on 10-05-2024 Bedside Glucose (Misc Panel) 288 mg/dL [place] [id number] [facility] Comment on above: MANAGEMENT OF PATIEN T CARE PER NURSING PROTOCOL Hematocrit Auto (Bld) [Volum e fraction]Ordered By: Annette Holden on 10-05-2024 Hematocrit (Bld) [Volume fraction] 43.0 % 40-54 [facility] Hemoglobin measurementOrdere d By: Annette Holden on 10-05-2024 Hemoglobin (Bld) [Mass/Vol] 14.3 g/dL 13.0-16.5 [facility] Immature granulocytes/100 WB C Auto (Bld)Ordered By: Annette Holden on 10-05-2024 Immature granulocytes/100 WBC (Bld) 0.500 % 0.0-0.9 [facility] Comment on above: IG% - Immature Granu locytes (promyelocytes, myelocytes and metamyelocytes) > 1% indicates that a LEFT SHIFT is Present. Lymphocytes Auto (Unsp spec) [#/Vol]Ordered By: Annette Holden on 10-05-2024 Lymphocytes (Bld) [#/Vol] 1.05 10*3/uL 0.83-4.51 [facility] Lymphocytes/100 WBC Auto (Un sp spec)Ordered By: Annette Holden on 10-05-2024 Lymphocytes/100 WBC (Bld) 5.2 % Low 19-41 [facility] MCV (mean corpuscular volume ) determinationOrdered By: Annette Holden on 10-05-2024 MCV (RBC) [Entitic vol] 96.8 fL High 80-94 [facility] Mean corpuscular hemoglobin (MCH) determinationOrdered By: Annette Holden on 10-05-2024 MCH (RBC) [Entitic mass] 32.2 pg High 27.0-32.0 [facility] Mean corpuscular hemoglobin concentration (MCHC) determinationOrdered By: Annette Holden on 10-05-2024 MCHC (RBC) [Mass/Vol] 33.3 g/dL 32-36 [facility] Mean platelet volume determi nationOrdered By: Annette Holden on 10-05-2024 Platelet mean volume (Bld) [Entitic vol] 9.8 fL 6.2-12.0 [facility] Monocyte percentageOrdered B y: Annette Holden on 10-05-2024 Monocytes/100 WBC (Bld) 3.0 % 0-10 [facility] Neutrophil percentageOrdered By: Annette Holden on 10-05-2024 Neutrophils/100 WBC (Bld) 90.9 % High 47-70 [facility] Nucleated red blood cell per centageOrdered By: Annette Holden on 10-05-2024 Nucleated RBC/100 WBC (Bld) [Ratio] 0 % 0-5 [facility] Platelet countOrdered By: Na arnie Holden on 10-05-2024 Platelets (Bld) [#/Vol] 310 10*3/uL 150-450 [facility] Potassium measurementOrdered By: Annette Holden on 10-05-2024 Potassium [Moles/Vol] 4.5 mmol/L 3.5-5.1 [facility] RBC Auto (Bld) [#/Vol]Ordere d By: Annette Holden on 10-05-2024 RBC (Bld) [#/Vol] 4.44 10*6/uL Low 4.6-6.2 [facility] Serum anion gap measurementO rdered By: Annette Holden on 10-05-2024 Anion gap [Moles/Vol] 5 mmol/L 5-15 [facility] Serum or plasma calcium odette urement (mass/volume)Ordered By: Annette Holden on 10-05-2024 Calcium [Mass/Vol] 9.3 mg/dL 8.5-10.1 [facility] Serum or plasma creatinine m easurement (mass/volume)Ordered By: Annette Holden on 10-05-2024 Creatinine [Mass/Vol] 1.00 mg/dL 0.70-1.30 [facility] Comment on above: The validity of the calculated GFR & GFRAA in patients over 70 years has not been determined. Clinical correlation is essential. Serum or plasma urea nitroge n measurement (mass/volume)Ordered By: Annette Holden on 10-05-2024 Urea nitrogen [Mass/Vol] 29 mg/dL High 7-18 [facility] Sodium levelOrdered By: Annette Holden on 10-05-2024 Sodium [Moles/Vol] 137 mmol/L 136-145 [facility] White blood cell (WBC) count Ordered By: Annette Holden on 10-05-2024 WBC (Bld) [#/Vol] 20.1 10*3/uL High 4.4-11.0 [facility] Albumin to globulin ratioOrd ered By: Triny Amos on 10-04-2024 Albumin/Globulin [Mass ratio] 0.8 {ratio} Low 0.9-2.4 [facility] Bedside Glucoseon 10-04-2024 FINGERSTICK GLU 285 mg/dL High 74-106 [facility] Comment on above: Result Comment: SARAH GEMENT OF PATIENT CARE PER NURSING PROTOCOL Performed By: #### L 501.080 ####[facility] [address] [facility] [address] FINGERSTICK GLU 255 mg/dL High 74-106 [facility] Comment on above: Result Comment: SARAH GEMENT OF PATIENT CARE PER NURSING PROTOCOL Performed By: #### L 501.080 ####[facility] [address] [place], [address] FINGERSTICK GLU 162 mg/dL High 74-106 [facility] Comment on above: Result Comment: SARAH GEMENT OF PATIENT CARE PER NURSING PROTOCOL Performed By: #### L 501.080 ####[facility] [address] [place], [address] Bilirubin, totalOrdered By: Triny Trinidad on 10-04-2024 Bilirubin [Mass/Vol] 0.70 mg/dL 0.20-1.00 [facility] Comment on above: For patients on eltr ombopag therapy, use of Dimension Sims TBIL is not recommended. CBC W/Diff, Automatedon 09-10 PLT EST ADEQUATE Normal ADEQ [facility] Comment on above: Performed By: #### L 500.4050, L100.0100 ####[facility] [address] [place], [address] RED CELL MORPH NORM C+C Normal NORM C C [facility] Comment on above: Performed By: #### L 500.4050, L100.0100 ####[facility] [address] [place], [address] VACUOLATE CELLS 2+ Normal [facility] Comment on above: Performed By: #### L 500.4050, L100.0100 ####[facility] [address] [place], [address] Comprehensive Metabolic Prof ilon 10-04-2024 Albumin [Mass/Vol] 3.0 g/dL Low 3.2-5.0 [facility] Comment on above: Performed By: #### L 500.4050, L100.0100 ####[facility] [address] [place], [address] Albumin/Globulin [Mass ratio] 0.8 {ratio} Low 0.9-2.4 [facility] Comment on above: Performed By: #### L 500.4050, L100.0100 ####[facility] [address] [place], [address] ALK P 111 U/L Normal 45-117 [facility] Comment on above: Performed By: #### L 500.4050, L100.0100 ####[facility] [address] [place], [address] ALT [Catalytic activity/Vol] 39 U/L Normal 16-61 [facility] Comment on above: Performed By: #### L 500.4050, L100.0100 ####[facility] [address] [place], [address] AST [Catalytic activity/Vol] 26 U/L Normal 15-37 [facility] Comment on above: Performed By: #### L 500.4050, L100.0100 ####[facility] [address] [place], [address] Bilirubin [Mass/Vol] 0.70 mg/dL Normal 0.20-1.00 [facility] Comment on above: Result Comment: For patients on eltrombopag therapy, use of Dimension Sims TBIL is not recommended. Performed By: #### L 500.4050, L100.0100 ####[facility] [address] [place], [address] BUN/CRE 14.2 RATIO Normal 10-20 [facility] Comment on above: Performed By: #### L 500.4050, L100.0100 ####[facility] [address] [place], [address] CA,Total 8.6 mg/dL Normal 8.5-10.1 [facility] Comment on above: Performed By: #### L 500.4050, L100.0100 ####[facility] [address] [place], [address] Chloride [Moles/Vol] 106 mmol/L Normal 98-107 [facility] Comment on above: Performed By: #### L 500.4050, L100.0100 ####[facility] [address] [place], [address] CO2 [Moles/Vol] 20.0 mmol/L Low 21.0-32.0 [facility] Comment on above: Performed By: #### L 500.4050, L100.0100 ####[facility] [address] [place], [address] Creatinine [Mass/Vol] 1.13 mg/dL Normal 0.70-1.30 [facility] Comment on above: Result Comment: The validity of the calculated GFR GFRAA in patients over70 years has not been determined. Clinical correlation isessential. Performed By: #### L 500.4050, L100.0100 ####[facility] [address] [place], [address] ECRCL 60.16 ml/min Normal [facility] Comment on above: Performed By: #### L 500.4050, L100.0100 ####[facility] [address] [place], [address] EST GFR - AA 81 mL/min Normal >60 [facility] Comment on above: Result Comment: Afri can Burmese GFR Calc Performed By: #### L 500.4050, L100.0100 ####[facility] [address] [place], [address] GAP 10 Normal 5-15 [facility] Comment on above: Performed By: #### L 500.4050, L100.0100 ####[facility] [address] [place], [address] GFR/1.73 sq M.predicted among non-blacks MDRD (S/P/Bld) [Vol rate/Area] 67 mL/min/{1.73_m2} Normal >60 [facility] Comment on above: Result Comment: Non- GFR Calc Performed By: #### L 500.4050, L100.0100 ####[facility] [address] [place], [address] Globulin (S) [Mass/Vol] 3.7 g/dL Normal 2.2-4.2 [facility] Comment on above: Performed By: #### L 500.4050, L100.0100 ####[facility] [address] [place], [address] Glucose [Mass/Vol] 159 mg/dL High 74-106 [facility] Comment on above: Result Comment: Fast ing Glucose result greater than or equal to 126 mg/dLsuggests DIABETES MELLITUS per A.D.A. criteria. Performed By: #### L 500.4050, L100.0100 ####[facility] [address] [place], [address] Potassium [Moles/Vol] 4.1 mmol/L Normal 3.5-5.1 [facility] Comment on above: Performed By: #### L 500.4050, L100.0100 ####[facility] [address] [place], [address] Sodium [Moles/Vol] 136 mmol/L Normal 136-145 [facility] Comment on above: Performed By: #### L 500.4050, L100.0100 ####[facility] [address] [place], [address] T PROT 6.7 g/dL Normal 6.4-8.2 [facility] Comment on above: Performed By: #### L 500.4050, L100.0100 ####[facility] [address] [place], [address] Urea nitrogen [Mass/Vol] 16 mg/dL Normal 7-18 [facility] Comment on above: Performed By: #### L 500.4050, L100.0100 ####[facility] [address] [place], [address] Laboratory - Chemistry and C hemistry - challengeOrdered By: Triny Trinidad on 10-04-2024 AST [Catalytic activity/Vol] 26 U/L 15-37 [facility] Neutrophils.vacuolated LM Ql (Bld)Ordered By: Triny Amos on 10-04-2024 Toxic Vacuolation 2+ [facility] Platelets LM Ql (Bld)Ordered By: on 10-04-2024 Platelet Estimate ADEQUATE ADEQ [facility] RBC morphology finding Nom ( Bld)Ordered By: Triny Amos on 10-04-2024 Red Blood Cell Morphology NORM C+C NORMAL NORM C&C [facility] RESPIRATORY PANEL MOLECULARo n 10-04-2024 RP PANEL Normal [facility] Comment on above: Performed By: #### M 100.708 ####[facility] [address] [place], [place], [id number] Serum globulin measurementOr dered By: Triny Amos on 10-04-2024 Globulin (S) [Mass/Vol] 3.7 g/dL 2.2-4.2 [facility] Serum or plasma alanine medellin otransferase (ALT) measurementOrdered By: on 10-04-2024 ALT [Catalytic activity/Vol] 39 U/L 16-61 [facility] Serum or plasma albumin odette urement (mass/volume)Ordered By: on 10-04-2024 Albumin [Mass/Vol] 3.0 g/dL Low 3.2-5.0 [facility] Serum or plasma alkaline chris sphatase measurementOrdered By: on 10-04-2024 ALP [Catalytic activity/Vol] 111 U/L 45-117 [facility] Total proteinOrdered By: Aut umguillermo White on 10-04-2024 Protein [Mass/Vol] 6.7 g/dL 6.4-8.2 [facility] Urine Cultureon 10-04-2024 URC Culture exhibits no growth. Normal [facility] Comment on above: Performed By: #### M 100.2200 ####[facility] [address] [place], [place], [id number] Lead EKGon 10-03-2024 12 Lead EKG Normal [facility] Abdomen/Pelvis W IV Cont ONL Yon 10-03-2024 Abdomen/Pelvis W IV Cont ONLY Normal [facility] Bacteria LM.HPF (Urine sed) [#/Area]Ordered By: Pollo Thompson on 10-03-2024 Urine Bacteria RARE /hpf None Seen [facility] Base excess Calc (BldV) [Mol es/Vol]Ordered By: Moustapha Jaramillo on 10-03-2024 Venous Blood Base Excess -9 mmol/L Low -1.0-3.5 [facility] Bedside Glucoseon 10-03-2024 FINGERSTICK GLU 115 mg/dL High 74-106 [facility] Comment on above: Result Comment: SARAH NATH OF PATIENT CARE PER NURSING PROTOCOL Performed By: #### L 501.080 ####[facility] [address] [place], [address] Bilirubin Test strip Ql (U)O rdered By: Pollo Thompson on 10-03-2024 Bilirubin Ql (U) Negative Negative [facility] Blood cultureOrdered By: Bianca Thompson on 10-03-2024 Bacteria identified Cx Nom (Bld) No growth in 5 days. [facility] Bacteria identified Cx Nom (Bld) No growth in 5 days. [facility] CBC W/Diff, Automatedon 09-10 Absolute Lymph 0.34 X10 3/uL Low 0.83-4.51 [facility] Comment on above: Performed By: #### L 503.6005, L300.4310, L500.4050, L100.0100, L300.3900 ####[facility] [address] [place], [address] Absolute Neut 15.8 X10 3/uL High 2.0-7.7 [facility] Comment on above: Performed By: #### L 503.6005, L300.4310, L500.4050, L100.0100, L300.3900 ####[facility] [address] [place], [address] Basophils/100 WBC (Bld) 0.7 % Normal 0-1 [facility] Comment on above: Performed By: #### L 503.6005, L300.4310, L500.4050, L100.0100, L300.3900 ####[facility] [address] [place], [address] Eosinophils/100 WBC (Bld) 6.1 % High 0-5 [facility] Comment on above: Performed By: #### L 503.6005, L300.4310, L500.4050, L100.0100, L300.3900 ####[facility] [address] [place], [address] Erythrocyte distribution width (RBC) [Ratio] 14.6 % Normal 11.6-14.6 [facility] Comment on above: Performed By: #### L 503.6005, L300.4310, L500.4050, L100.0100, L300.3900 ####[facility] [address] [place], [address] Hematocrit (Bld) [Volume fraction] 48.5 % Normal 40-54 [facility] Comment on above: Performed By: #### L 503.6005, L300.4310, L500.4050, L100.0100, L300.3900 ####[facility] [address] [place], [address] Hemoglobin (Bld) [Mass/Vol] 16.3 g/dL Normal 13.0-16.5 [facility] Comment on above: Performed By: #### L 503.6005, L300.4310, L500.4050, L100.0100, L300.3900 ####[facility] [address] [place], [address] IG% 0.900 Normal 0.0-0.9 [facility] Comment on above: Result Comment: IG% - Immature Granulocytes (promyelocytes, myelocytes andmetamyelocytes) > 1% indicates that a LEFT SHIFT is Present. Performed By: #### L 503.6005, L300.4310, L500.4050, L100.0100, L300.3900 ####[facility] [address] [place], [address] Lymphocytes/100 WBC (Bld) 1.8 % Low 19-41 [facility] Comment on above: Performed By: #### L 503.6005, L300.4310, L500.4050, L100.0100, L300.3900 ####[facility] [address] [place], [address] MCH (RBC) [Entitic mass] 31.9 pg Normal 27.0-32.0 [facility] Comment on above: Performed By: #### L 503.6005, L300.4310, L500.4050, L100.0100, L300.3900 ####[facility] [address] [place], [address] MCHC (RBC) [Mass/Vol] 33.6 g/dL Normal 32-36 [facility] Comment on above: Performed By: #### L 503.6005, L300.4310, L500.4050, L100.0100, L300.3900 ####[facility] [address] [place], [address] MCV (RBC) [Entitic vol] 94.9 fL High 80-94 [facility] Comment on above: Performed By: #### L 503.6005, L300.4310, L500.4050, L100.0100, L300.3900 ####[facility] [address] [place], [address] Monocytes/100 WBC (Bld) 4.8 % Normal 0-10 [facility] Comment on above: Performed By: #### L 503.6005, L300.4310, L500.4050, L100.0100, L300.3900 ####[facility] [address] [place], [address] Neutrophils/100 WBC (Bld) 85.7 % High 47-70 [facility] Comment on above: Performed By: #### L 503.6005, L300.4310, L500.4050, L100.0100, L300.3900 ####[facility] [address] [place], [address] Nucleated RBC (Bld) [#/Vol] 0 10*3/uL Normal 0-5 [facility] Comment on above: Performed By: #### L 503.6005, L300.4310, L500.4050, L100.0100, L300.3900 ####[facility] [address] [place], [address] Platelet mean volume (Bld) [Entitic vol] 10.2 fL Normal 6.2-12.0 [facility] Comment on above: Performed By: #### L 503.6005, L300.4310, L500.4050, L100.0100, L300.3900 ####[facility] [address] [place], [address] Platelets (Bld) [#/Vol] 314 10*3/uL Normal 150-450 [facility] Comment on above: Performed By: #### L 503.6005, L300.4310, L500.4050, L100.0100, L300.3900 ####[facility] [address] [place], [address] RBC (Bld) [#/Vol] 5.11 10*6/uL Normal 4.6-6.2 [facility] Comment on above: Performed By: #### L 503.6005, L300.4310, L500.4050, L100.0100, L300.3900 ####[facility] [address] [place], [address] RDW SD 51.4 fl High 35.1-43.9 [facility] Comment on above: Performed By: #### L 503.6005, L300.4310, L500.4050, L100.0100, L300.3900 ####[facility] [address] [place], [address] WBC (Bld) [#/Vol] 18.4 10*3/uL High 4.4-11.0 [facility] Comment on above: Performed By: #### L 503.6005, L300.4310, L500.4050, L100.0100, L300.3900 ####[facility] [address] [place], [address] CO2 (BldV) [Moles/Vol]Ordere d By: Moustapha Jaramillo on 10-03-2024 CO2 [Moles/Vol] 18 mmol/L Low 23-33 [facility] CO2 (BldV) [Partial pressure ]Ordered By: Moustapha Jaramillo on 10-03-2024 Bed Mix Venous Bld PCO2 at Pat Temp 30.5 mmHg Low 41-51 [facility] Chest PA and Lateralon 10-03 Chest PA and Lateral Normal [facility] Comprehensive Metabolic Prof ilon 10-03-2024 Albumin [Mass/Vol] 3.6 g/dL Normal 3.2-5.0 [facility] Comment on above: Performed By: #### L 503.6005, L300.4310, L500.4050, L100.0100, L300.3900 ####[facility] [address] [place], [address] Albumin/Globulin [Mass ratio] 0.9 {ratio} Normal 0.9-2.4 [facility] Comment on above: Performed By: #### L 503.6005, L300.4310, L500.4050, L100.0100, L300.3900 ####[facility] [address] [place], [address] ALK P 136 U/L High 45-117 [facility] Comment on above: Performed By: #### L 503.6005, L300.4310, L500.4050, L100.0100, L300.3900 ####[facility] [address] [place], [address] ALT [Catalytic activity/Vol] 53 U/L Normal 16-61 [facility] Comment on above: Performed By: #### L 503.6005, L300.4310, L500.4050, L100.0100, L300.3900 ####[facility] [address] [place], [address] AST [Catalytic activity/Vol] 36 U/L Normal 15-37 [facility] Comment on above: Performed By: #### L 503.6005, L300.4310, L500.4050, L100.0100, L300.3900 ####[facility] [address] [place], [address] Bilirubin [Mass/Vol] 1.20 mg/dL High 0.20-1.00 [facility] Comment on above: Result Comment: For patients on eltrombopag therapy, use of Dimension Sims TBIL is not recommended. Performed By: #### L 503.6005, L300.4310, L500.4050, L100.0100, L300.3900 ####[facility] [address] [place], [address] BUN/CRE 12.2 RATIO Normal 10-20 [facility] Comment on above: Performed By: #### L 503.6005, L300.4310, L500.4050, L100.0100, L300.3900 ####[facility] [address] [place], [address] CA,Total 9.3 mg/dL Normal 8.5-10.1 [facility] Comment on above: Performed By: #### L 503.6005, L300.4310, L500.4050, L100.0100, L300.3900 ####[facility] [address] [place], [address] Chloride [Moles/Vol] 102 mmol/L Normal 98-107 [facility] Comment on above: Performed By: #### L 503.6005, L300.4310, L500.4050, L100.0100, L300.3900 ####[facility] [address] [place], [address] CO2 [Moles/Vol] 25.0 mmol/L Normal 21.0-32.0 [facility] Comment on above: Performed By: #### L 503.6005, L300.4310, L500.4050, L100.0100, L300.3900 ####[facility] [address] [place], [address] Creatinine [Mass/Vol] 1.23 mg/dL Normal 0.70-1.30 [facility] Comment on above: Result Comment: The validity of the calculated GFR GFRAA in patients over70 years has not been determined. Clinical correlation isessential. Performed By: #### L 503.6005, L300.4310, L500.4050, L100.0100, L300.3900 ####[facility] [address] [place], [address] ECRCL 59.76 ml/min Normal [facility] Comment on above: Performed By: #### L 503.6005, L300.4310, L500.4050, L100.0100, L300.3900 ####[facility] [address] [place], [address] EST GFR - AA 74 mL/min Normal >60 [facility] Comment on above: Result Comment: Afri can Burmese GFR Calc Performed By: #### L 503.6005, L300.4310, L500.4050, L100.0100, L300.3900 ####[facility] [address] [place], [address] GAP 9 Normal 5-15 [facility] Comment on above: Performed By: #### L 503.6005, L300.4310, L500.4050, L100.0100, L300.3900 ####[facility] [address] [place], [address] GFR/1.73 sq M.predicted among non-blacks MDRD (S/P/Bld) [Vol rate/Area] 61 mL/min/{1.73_m2} Normal >60 [facility] Comment on above: Result Comment: Non- GFR Calc Performed By: #### L 503.6005, L300.4310, L500.4050, L100.0100, L300.3900 ####[facility] [address] [place], [address] Globulin (S) [Mass/Vol] 3.9 g/dL Normal 2.2-4.2 [facility] Comment on above: Performed By: #### L 503.6005, L300.4310, L500.4050, L100.0100, L300.3900 ####[facility] [address] [place], [address] Glucose [Mass/Vol] 165 mg/dL High 74-106 [facility] Comment on above: Result Comment: Fast ing Glucose result greater than or equal to 126 mg/dLsuggests DIABETES MELLITUS per A.D.A. criteria. Performed By: #### L 503.6005, L300.4310, L500.4050, L100.0100, L300.3900 ####[facility] [address] [place], [address] Potassium [Moles/Vol] 3.5 mmol/L Normal 3.5-5.1 [facility] Comment on above: Performed By: #### L 503.6005, L300.4310, L500.4050, L100.0100, L300.3900 ####[facility] [address] [place], [place], [address] Sodium [Moles/Vol] 136 mmol/L Normal 136-145 [facility] Comment on above: Performed By: #### L 503.6005, L300.4310, L500.4050, L100.0100, L300.3900 ####[facility] [address] [place], [place], [id number] T PROT 7.5 g/dL Normal 6.4-8.2 [facility] Comment on above: Performed By: #### L 503.6005, L300.4310, L500.4050, L100.0100, L300.3900 ####[facility] [address] [place], [place], [address] Urea nitrogen [Mass/Vol] 15 mg/dL Normal 7-18 [facility] Comment on above: Performed By: #### L 503.6005, L300.4310, L500.4050, L100.0100, L300.3900 ####[facility] [address] [place], [place], [id number] Emergency Department Summary on 10-03-2024 Emergency Department Summary Normal [facility] Epithelial cells.squamous LM Ql (Urine sed)Ordered By: Pollo Thompson on 10-03-2024 Epithelial cells.squamous LM.HPF (Urine sed) [#/Area] 0 /[HPF] 0-5 [facility] Glucose Ql (U)Ordered By: Bill Thompson on 10-03-2024 Glucose (U) [Mass/Vol] 1000 mg/dL High Normal [facility] H AND P Exam - [facility] 10-03-2024 H&P Exam - Hospitalist Normal [facility] Influenza virus A and B and SARS-CoV-2 (COVID-19) and Respiratory syncytial virus RNAOrdered By: Pollo Thompson on 10-03-2024 SARS-CoV-2 (COVID-19) RNA RADHA+probe Ql (Unsp spec) [facility] normalized rat io (INR) calculationOrdered By: Pollo Thompson on 10-03-2024 INR Coag (Bld) [Relative time] 1.1 {INR} [facility] Ketones Test strip Ql (U)Ord ered By: Pollo Thompson on 10-03-2024 Ketones Ql (U) Negative Negative [facility] Lactic Acidon 10-03-2024 Lactate [Moles/Vol] 1.5 mmol/L Normal 0.4-1.9 [facility] Comment on above: Order Comment: Y Performed By: #### L [id number], L300.4310, L500.4050, L100.0100, L300.3900 ####[facility] [address] [place], [place], [id number] Lactic acid measurementOrder ed By: Pollo Thompson on 10-03-2024 Lactate [Moles/Vol] 1.5 mmol/L 0.4-2.0 [facility] M100.678on 10-03-2024 M100.678 Pending SARS-CoV-2 (COVID 19) Negative INFLUENZA A Negative INFLUENZA B Negative RSV PCR Negative Normal [facility] Comment on above: Performed By: #### M 100.678 ####[facility] [address] [place], [place], [address] Magnesiumon 10-03-2024 Magnesium [Mass/Vol] 1.8 mg/dL Normal 1.6-2.6 [facility] Comment on above: Order Comment: Comme nts: may add to ED labs Performed By: #### L 501.5200, L509.7000 ####[facility] [address] [place], [place], [id number] Magnesium measurementOrdered By: Triny Trinidad on 10-03-2024 Magnesium [Mass/Vol] 1.8 mg/dL 1.6-2.6 [facility] Microscopic analysis of urin e for red blood cells (RBC)Ordered By: Pollo Thompson on 10-03-2024 Urine RBC 0 SEEN /hpf 0-5 [facility] Mucus LM Ql (Urine sed)Order ed By: Pollo Thompson on 10-03-2024 Mucus Ql (Urine sed) 0 SEEN /hpf [facility] Nitrite Test strip Ql (U)Ord ered By: Pollo Thompson on 10-03-2024 Nitrite Ql (U) Negative Negative [facility] No Panel InformationOrdered By: Moustapha Jaramillo on 10-03-2024 Blood Gas Sample Site Not entered [facility] Blood Gas Specimen Type ALYX [facility] Oxygen Delivery Device Not entered [facility] Oxygen (BldV) [Partial press ure]Ordered By: Moustapha Jaramillo on 10-03-2024 Venous Blood Partial Pressure O2 45 mmHg High 25-40 [facility] Partial Thromboplast Timeon 10-03-2024 aPTT Coag (Bld) [Time] 23.4 s Low 24.1-36.2 [facility] Comment on above: Performed By: #### L 503.6005, L300.4310, L500.4050, L100.0100, L300.3900 ####[facility] [address], [place], [address] Procalcitoninon 10-03-2024 Procalcitonin 2.93 ng/mL High 0.00-0.09 [facility] Comment on above: Result Comment: A pr ocalcitonin (PCT) level above 2.0 ng/mL on the first day of ICU admission is associated with a high risk for progression to severe sepsis and/or septic shock. A PCT level below 0.5 ng/mL on the first day of ICU admission is associated with a low risk for progression to severe and/or septic shock. Note: Concentrations <0.5 ng/mL do not exclude an infection on account of localized infections (without systemic signs) which can be associated with such low concentrations, or a systemic infection in its initial stages (<6 hours). Furthermore, increased procalcitonin can occur without infection. PCT concentrations between 0.5 and 2.0 ng/mL should be interpreted taking into account the patient's history. It is recommended to retest PCT within 6-24 hours if any concentrations <2 ng/mL are obtained. Performed By: #### L 501.5200, L509.7000 ####[facility] [address] [place], [address] Procalcitonin [Mass/Vol]Orde red By: Triny Trinidad on 10-03-2024 Procalcitonin 2.93 ng/mL High 0.00-0.09 [facility] Comment on above: A procalcitonin (PCT ) level above 2.0 ng/mL on the first day of ICU admission is associated with a high risk for progression to severe sepsis and/or septic shock. A PCT level below 0.5 ng/mL on the first day of ICU admission is associated with a low risk for progression to severe and/or septic shock. Note: Concentrations <0.5 ng/mL do not exclude an infection on account of localized infections (without systemic signs) which can be associated with such low concentrations, or a systemic infection in its initial stages (<6 hours). Furthermore, increased procalcitonin can occur without infection. PCT concentrations between 0.5 and 2.0 ng/mL should be interpreted taking into account the patient's history. It is recommended to retest PCT within 6-24 hours if any concentrations <2 ng/mL are obtained. Protein Test strip Ql (U)Ord ered By: Pollo Thompson on 10-03-2024 Protein Ql (U) 15 mg/dl High Negative [facility] Prothrombin Time w/INRon INR Coag (PPP) [Relative time] 1.1 {INR} Normal [facility] Comment on above: Performed By: #### L 503.6005, L300.4310, L500.4050, L100.0100, L300.3900 ####[facility] [address] [place], [place], [id number] PT Coag (PPP) [Time] 14.4 s Normal 11.7-14.9 [facility] Comment on above: Performed By: #### L 503.6005, L300.4310, L500.4050, L100.0100, L300.3900 ####[facility] [address] [place], [address] Prothrombin timeOrdered By: Pollo Thompson on 10-03-2024 PT Coag (PPP) [Time] 14.4 s 11.7-14.9 [facility] Respiratory pathogens DNA an d RNA panel RADHA+probe (Resp)Ordered By: Triny Trinidad on 10-03-2024 Respiratory Panel (PCR) [facility] Urinalysis, Completeon 10-03 BACTERIA RARE Normal None Seen [facility] Comment on above: Order Comment: GONZALO CTOR TO SPECIFY Performed By: #### L 400.0001 ####[facility] [address] [place], [address] WBC 0-5 SEEN Normal 0-5 [facility] Comment on above: Order Comment: GONZALO CTOR TO SPECIFY Performed By: #### L 400.0001 ####[facility] [address] [place], [address] EPI,SQUAMOUS 0 SEEN Normal 0-5 [facility] Comment on above: Order Comment: GONZALO CTOR TO SPECIFY Performed By: #### L 400.0001 ####[facility] [address] [place], [address] Mucus Ql (Urine sed) 0 SEEN Normal [facility] Comment on above: Order Comment: GONZALO CTOR TO SPECIFY Performed By: #### L 400.0001 ####[facility] [address] [place], [address] RBC 0 SEEN Normal 0-5 [facility] Comment on above: Order Comment: GONZALO CTOR TO SPECIFY Performed By: #### L 400.0001 ####[facility] [address] [place], [address] Urine blood detectionOrdered By: Pollo Thompson on 10-03-2024 Urine Occult Blood Negative Negative [facility] Urine clarityOrdered By: Bianca Thompson on 10-03-2024 Clarity (U) Clear Clear [facility] Urine color determinationOrd ered By: Pollo Thompson on 10-03-2024 Color (U) Yellow Yellow [facility] Urine cultureOrdered By: Bianca Thompson on 10-03-2024 Bacteria identified Cx Nom (U) Culture exhibits no growth. [facility] Urine leukocyte esterase det ection by dipstickOrdered By: Pollo Thompson on 10-03-2024 Leukocyte esterase Test strip Ql (U) 25 /ul High Negative [facility] Urine pHOrdered By: Pollo blue on 10-03-2024 pH (U) 7.0 [pH] 5.0 - 8.0 [facility] Urine specific gravity measu rementOrdered By: Pollo Thompson on 10-03-2024 Specific gravity (U) [Rel density] 1.005 1.002-1.030 [facility] Urobilinogen Ql (U)Ordered B y: Pollo Thompson on 10-03-2024 Urine Urobilinogen Normal mg/dl Normal [facility] Venous Blood Gason 4 Blood Gas Type ALYX Normal [facility] Comment on above: Performed By: #### L 9000.0810 ####[facility] [address] [place], [place], [id number] CO2 [Moles/Vol] 18 mmol/L Low 23-33 [facility] Comment on above: Performed By: #### L 9000.0810 ####[facility] [address] [place], [place], [address] HCO3 (Bld) [Moles/Vol] 17 mmol/L Low 22-26 [facility] Comment on above: Performed By: #### L 9000.0810 ####[facility] [address] [place], [address] O2 Delivery Dev Not entered Normal [facility] Comment on above: Performed By: #### L 9000.0810 ####[facility] [address] [place], [address] SITE Not entered Normal [facility] Comment on above: Performed By: #### L 9000.0810 ####[facility] [address] [place], [address] VBG BE -9 mmol/L Low -1.0-3.5 [facility] Comment on above: Performed By: #### L 9000.0810 ####[facility] [address] [place], [address] VBG pCO2 30.5 mmHg Low 41-51 [facility] Comment on above: Performed By: #### L 9000.0810 ####[facility] [address] [place], [address] VBG pH 7.35 Normal 7.32-7.42 [facility] Comment on above: Performed By: #### L 9000.0810 ####[facility] [address] [place], [address] VBG PO2 45 mmHg High 25-40 [facility] Comment on above: Performed By: #### L 9000.0810 ####[facility] [address] [place], [address] VBG SO2 79 High 50-70 [facility] Comment on above: Performed By: #### L 9000.0810 ####[facility] [address] [place], [address] Venous blood bicarbonate tarah surementOrdered By: Moustapha Jaramillo on 10-03-2024 HCO3 (Bld) [Moles/Vol] 17 mmol/L Low 22-26 [facility] Venous blood oxygen saturati on measurementOrdered By: Moustapha Jaramillo on 10-03-2024 Oxygen saturation in Blood 79 % High 50-70 [facility] White blood cell countOrdere d By: Pollo Thompson on 10-03-2024 Urine WBC 0-5 SEEN /hpf 0-5 [facility] aPTT Coag (PPP) [Time]Ordere d By: Pollo Thompson on 10-03-2024 aPTT Coag (Bld) [Time] 23.4 s Low 24.1-36.2 [facility] pH (BldV)Ordered By: Moustapha Jaramillo on 10-03-2024 Venous Blood pH 7.35 7.32-7.42 [facility] Basic Metabolic Profile (BMP )on 09-21-2024 BUN/CRE 14.8 RATIO Normal 10-20 [facility] Comment on above: Performed By: #### L 500.2500, L100.0100, L501.9985 ####[facility] [address] [place], [address] CA,Total 9.6 mg/dL Normal 8.5-10.1 [facility] Comment on above: Performed By: #### L 500.2500, L100.0100, L501.9985 ####[facility] [address] [place], [address] Chloride [Moles/Vol] 106 mmol/L Normal 98-107 [facility] Comment on above: Performed By: #### L 500.2500, L100.0100, L501.9985 ####[facility] [address] [place], [address] CO2 [Moles/Vol] 29.0 mmol/L Normal 21.0-32.0 [facility] Comment on above: Performed By: #### L 500.2500, L100.0100, L501.9985 ####[facility] [address] [place], [address] Creatinine [Mass/Vol] 1.08 mg/dL Normal 0.70-1.30 [facility] Comment on above: Result Comment: The validity of the calculated GFR GFRAA in patients over70 years has not been determined. Clinical correlation isessential. Performed By: #### L 500.2500, L100.0100, L501.9985 ####[facility] [address] [place], [address] EST GFR - AA 86 mL/min Normal >60 [facility] Comment on above: Result Comment: Afri can Burmese GFR Calc Performed By: #### L 500.2500, L100.0100, L501.9985 ####[facility] [address] [place], [address] GAP 3 Low 5-15 [facility] Comment on above: Performed By: #### L 500.2500, L100.0100, L501.9985 ####[facility] [address] [place], [address] GFR/1.73 sq M.predicted among non-blacks MDRD (S/P/Bld) [Vol rate/Area] 71 mL/min/{1.73_m2} Normal >60 [facility] Comment on above: Result Comment: Non- GFR Calc Performed By: #### L 500.2500, L100.0100, L501.9985 ####[facility] [address] [place], [address] Glucose [Mass/Vol] 151 mg/dL High 74-106 [facility] Comment on above: Result Comment: Fast ing Glucose result greater than or equal to 126 mg/dLsuggests DIABETES MELLITUS per A.D.A. criteria. Performed By: #### L 500.2500, L100.0100, L501.9985 ####[facility] [address] [place], [address] Potassium [Moles/Vol] 4.0 mmol/L Normal 3.5-5.1 [facility] Comment on above: Performed By: #### L 500.2500, L100.0100, L501.9985 ####[facility] [address] [place], [address] Sodium [Moles/Vol] 138 mmol/L Normal 136-145 [facility] Comment on above: Performed By: #### L 500.2500, L100.0100, L501.9985 ####[facility] [address] [place], [address] Urea nitrogen [Mass/Vol] 16 mg/dL Normal 7-18 [facility] Comment on above: Performed By: #### L 500.2500, L100.0100, L501.9985 ####[facility] [address] [place], [address] CBC W/Diff, Automatedon 11-11 11-2023 Absolute Lymph 1.86 X10 3/uL Normal 0.83-4.51 [facility] Comment on above: Performed By: #### L 500.2500, L100.0100, L501.9985 ####[facility] [address] [place], [address] Absolute Neut 5.2 X10 3/uL Normal 2.0-7.7 [facility] Comment on above: Performed By: #### L 500.2500, L100.0100, L501.9985 ####[facility] [address] [place], [address] Basophils/100 WBC (Bld) 0.7 % Normal 0-1 [facility] Comment on above: Performed By: #### L 500.2500, L100.0100, L501.9985 ####[facility] [address] [place], [address] Eosinophils/100 WBC (Bld) 7.1 % High 0-5 [facility] Comment on above: Performed By: #### L 500.2500, L100.0100, L501.9985 ####[facility] [address] [place], [address] Erythrocyte distribution width (RBC) [Ratio] 15.4 % High 11.6-14.6 [facility] Comment on above: Performed By: #### L 500.2500, L100.0100, L501.9985 ####[facility] [address] [place], [address] Hematocrit (Bld) [Volume fraction] 45.9 % Normal 40-54 [facility] Comment on above: Performed By: #### L 500.2500, L100.0100, L501.9985 ####[facility] [address] [place], [address] Hemoglobin (Bld) [Mass/Vol] 15.0 g/dL Normal 13.0-16.5 [facility] Comment on above: Performed By: #### L 500.2500, L100.0100, L501.9985 ####[facility] [address] [place], [address] IG% 0.400 Normal 0.0-0.9 [facility] Comment on above: Result Comment: IG% - Immature Granulocytes (promyelocytes, myelocytes andmetamyelocytes) > 1% indicates that a LEFT SHIFT is Present. Performed By: #### L 500.2500, L100.0100, L501.9985 ####[facility] [address] [place], [address] Lymphocytes/100 WBC (Bld) 22.1 % Normal 19-41 [facility] Comment on above: Performed By: #### L 500.2500, L100.0100, L501.9985 ####[facility] [address] [place], [address] MCH (RBC) [Entitic mass] 32.0 pg Normal 27.0-32.0 [facility] Comment on above: Performed By: #### L 500.2500, L100.0100, L501.9985 ####[facility] [address] [place], [address] MCHC (RBC) [Mass/Vol] 32.7 g/dL Normal 32-36 [facility] Comment on above: Performed By: #### L 500.2500, L100.0100, L501.9985 ####[facility] [address] [place], [address] MCV (RBC) [Entitic vol] 97.9 fL High 80-94 [facility] Comment on above: Performed By: #### L 500.2500, L100.0100, L501.9985 ####[facility] [address] [place], [address] Monocytes/100 WBC (Bld) 7.9 % Normal 0-10 [facility] Comment on above: Performed By: #### L 500.2500, L100.0100, L501.9985 ####[facility] [address] [place], [address] Neutrophils/100 WBC (Bld) 61.8 % Normal 47-70 [facility] Comment on above: Performed By: #### L 500.2500, L100.0100, L501.9985 ####[facility] [address] [place], [address] Nucleated RBC (Bld) [#/Vol] 0 10*3/uL Normal 0-5 [facility] Comment on above: Performed By: #### L 500.2500, L100.0100, L501.9985 ####[facility] [address] [place], [address] Platelet mean volume (Bld) [Entitic vol] 9.9 fL Normal 6.2-12.0 [facility] Comment on above: Performed By: #### L 500.2500, L100.0100, L501.9985 ####[facility] [address] [place], [address] Platelets (Bld) [#/Vol] 338 10*3/uL Normal 150-450 [facility] Comment on above: Performed By: #### L 500.2500, L100.0100, L501.9985 ####[facility] [address] [place], [address] RBC (Bld) [#/Vol] 4.69 10*6/uL Normal 4.6-6.2 [facility] Comment on above: Performed By: #### L 500.2500, L100.0100, L501.9985 ####[facility] [address] [place], [address] RDW SD 55.7 fl High 35.1-43.9 [facility] Comment on above: Performed By: #### L 500.2500, L100.0100, L501.9985 ####[facility] [address] [place], [address] WBC (Bld) [#/Vol] 8.4 10*3/uL Normal 4.4-11.0 [facility] Comment on above: Performed By: #### L 500.2500, L100.0100, L501.9985 ####[facility] [address] [place], [address] Hemoglobin A1con 09-21-2024 HbA1c (Bld) [Mass fraction] 8.3 % High 3.8-5.6 [facility] Comment on above: Result Comment: Norm al < 5.7 % Prediabetic 5.7 - 6.4 % Diabetic >or= 6.5 % Please note range changes. Performed By: #### L 500.2500, L100.0100, L501.9985 ####[facility] [address] [place], [address] Urine Cultureon 09-08-2024 URC Normal [facility] Comment on above: Performed By: #### M 100.6192 ####[facility] [address] [place], [address] Glucose Glucometer (BldC) [M ass/Vol]Ordered By: Kaley Singletary on 07-01-2023 Glucose [Mass/Vol] 190 mg/dL 74-106 [facility] Comment on above: MANAGEMENT OF PATIEN T CARE PER NURSING PROTOCOL Basophil percentageOrdered B y: Kaley Singletary on 06-15-2023 Chloride [Moles/Vol] 100 mmol/L 98-107 [facility] Glucose [Mass/Vol] 186 mg/dL 74-106 [facility] Comment on above: Fasting Glucose resu lt greater than or equal to 126 mg/dL suggests DIABETES MELLITUS per A.D.A. criteria. Potassium [Moles/Vol] 3.0 mmol/L 3.5-5.1 [facility] Sodium [Moles/Vol] 137 mmol/L 136-145 [facility] WBC (Bld) [#/Vol] 7.5 10*3/uL 4.4-11.0 [facility] Blood erythrocytes count (nu mber/volume)Ordered By: Kaley Singletary on 06-15-2023 RBC (Bld) [#/Vol] 4.48 10*6/uL 4.6-6.2 [facility] Blood hemoglobin measurement (mass/volume)Ordered By: Kaley Singletary on 06-15-2023 Hemoglobin (Bld) [Mass/Vol] 14.8 g/dL 13.0-16.5 [facility] Blood platelet mean volumeOr dered By: Kaely Singletary on 06-15-2023 Platelet mean volume (Bld) [Entitic vol] 9.8 fL 6.2-12.0 [facility] Determination of erythrocyte mean corpuscular volume (MCV)Ordered By: Kaley Singletary on 06-15-2023 MCV (RBC) [Entitic vol] 93.8 fL 80-94 [facility] Hematocrit Auto (Bld) [Volum e fraction]Ordered By: Kaley Singletary on 06-15-2023 Hematocrit (Bld) [Volume fraction] 42.0 % 40-54 [facility] Laboratory - Chemistry and C hemistry - challengeOrdered By: Kaley Singletary on 06-15-2023 CO2 [Moles/Vol] 31.0 mmol/L 21.0-32.0 [facility] Urea nitrogen/Creatinine [Mass ratio] 12.2 mg/mg 10-20 [facility] - Hematology and Cell countsOrdered By: Kaley Singletary on 06-15-2023 Erythrocyte distribution width (RBC) [Entitic vol] 46.8 fL 35.1-43.9 [facility] Erythrocyte distribution width (RBC) [Ratio] 13.7 % 11.6-14.6 [facility] MCH (RBC) [Entitic mass] 33.0 pg 27.0-32.0 [facility] MCHC Auto (RBC) [Mass/Vol]Or dered By: Kaley Singletary on 06-15-2023 MCHC (RBC) [Mass/Vol] 35.2 g/dL 32-36 [facility] No Panel InformationOrdered By: Kaley Singletary on 06-15-2023 Estimated GFR (MDRD) Amer 96 mL/min >60 [facility] Comment on above: GFR Calc Estimated GFR (MDRD) Non-Af Amer 79 mL/min >60 [facility] Comment on above: Non- GFR Calc Platelets bldOrdered By: Abdifatah Singletary on 06-15-2023 Platelets (Bld) [#/Vol] 298 10*3/uL 150-450 [facility] Serum or plasma calcium odette urement (mass/volume)Ordered By: Kaley Singletary on 06-15-2023 Calcium [Mass/Vol] 9.0 mg/dL 8.5-10.1 [facility] Serum or plasma creatinine m easurement (mass/volume)Ordered By: Kaley Singletary on 06-15-2023 Creatinine [Mass/Vol] 0.98 mg/dL 0.70-1.30 [facility] Comment on above: The validity of the calculated GFR & GFRAA in patients over 70 years has not been determined. Clinical correlation is essential. Serum or plasma urea nitroge n measurement (mass/volume)Ordered By: Kaley Singletary on 06-15-2023 Urea nitrogen [Mass/Vol] 12 mg/dL 7-18 [facility] Thin prep Papanicolaou smear with manual screeningOrdered By: Kaley Singletary on 06-15-2023 Thin prep Papanicolaou smear with manual screening 6 5-15 [facility] Absolute lymphocyte counton 11-05-2022 Lymphocytes Auto (Unsp spec) [#/Vol] 1.71 10*3/uL 0.83-4.51 [facility] Work Phone: Basophil percentageon 2021 Basophils/100 WBC (Bld) 0.5 % 0-1 [facility] Work Phone: Chloride [Moles/Vol] 103 mmol/L 98-107 [facility] Work Phone: Eosinophils/100 WBC (Bld) 11.8 % 0-5 [facility] Work Phone: Glucose [Mass/Vol] 224 mg/dL 74-106 [facility] Work Phone: Comment on above: Glucose result great er than or equal to 200 mg/dLsuggests DIABETES MELLITUS per A.D.A. criteria. Neutrophils (Bld) [#/Vol] 5.7 10*3/uL 2.0-7.7 [facility] Work Phone: Neutrophils/100 WBC (Bld) 60.5 % 47-70 [facility] Work Phone: Potassium [Moles/Vol] 4.2 mmol/L 3.5-5.1 [facility] Work Phone: Sodium [Moles/Vol] 138 mmol/L 136-145 [facility] Work Phone: [phone] WBC (Bld) [#/Vol] 9.4 10*3/uL 4.4-11.0 [facility] Work Phone: Blood erythrocytes count (nu mber/volume)on 11-05-2022 RBC (Bld) [#/Vol] 4.86 10*6/uL 4.6-6.2 [facility] Work Phone: [phone] Blood hemoglobin measurement (mass/volume)on 11-05-2022 Hemoglobin (Bld) [Mass/Vol] 16.3 g/dL 13.0-16.5 [facility] Work Phone: Blood lymphocytes/100 leukoc yteson 11-05-2022 Lymphocytes/100 WBC (Bld) 18.2 % 19-41 [facility] Work Phone: Blood monocytes/100 leukocyt eson 11-05-2022 Monocytes/100 WBC (Bld) 8.4 % 0-10 [facility] Work Phone: Blood platelet mean volumeon 11-05-2022 Platelet mean volume (Bld) [Entitic vol] 9.5 fL 6.2-12.0 [facility] Work Phone: Determination of erythrocyte mean corpuscular volume (MCV)on 11-05-2022 MCV (RBC) [Entitic vol] 96.7 fL 80-94 [facility] Work Phone: Hematocrit Auto (Bld) [Volum e fraction]on 11-05-2022 Hematocrit (Bld) [Volume fraction] 47.0 % 40-54 [facility] Work Phone: Laboratory - Chemistry and C hemistry - challengeon 11-05-2022 CO2 [Moles/Vol] 25.0 mmol/L 21.0-32.0 [facility] Work Phone: Urea nitrogen/Creatinine [Mass ratio] 13.0 mg/mg 10-20 [facility] Work Phone: Laboratory - Hematology and Cell countson 11-05-2022 Erythrocyte distribution width (RBC) [Entitic vol] 48.4 fL 35.1-43.9 [facility] Work Phone: Erythrocyte distribution width (RBC) [Ratio] 13.5 % 11.6-14.6 [facility] Work Phone: Immature granulocytes/100 WBC (Bld) 0.600 % 0.0-0.9 [facility] Work Phone: Comment on above: IG% - Immature Granu locytes (promyelocytes, myelocytes and metamyelocytes) > 1% indicates that a LEFT SHIFT is Present. MCH (RBC) [Entitic mass] 33.5 pg 27.0-32.0 [facility] Work Phone: Nucleated RBC/100 WBC (Bld) [Ratio] 0 % 0-5 [facility] Work Phone: MCHC Auto (RBC) [Mass/Vol]on 11-05-2022 MCHC (RBC) [Mass/Vol] 34.7 g/dL 32-36 [facility] Work Phone: No Panel Informationon 11-05 Estimated Creatinine Clearance Calc 64.88 ml/min [facility] Work Phone: Estimated GFR (MDRD) Amer 86 mL/min >60 [facility] Work Phone: Comment on above: GFR Calc Estimated GFR (MDRD) Non-Af Amer 71 mL/min >60 [facility] Work Phone: Comment on above: Non- GFR Calc Platelets bldon 11-05-2022 Platelets (Bld) [#/Vol] 350 10*3/uL 150-450 [facility] Work Phone: Serum or plasma calcium odette urement (mass/volume)on 11-05-2022 Calcium [Mass/Vol] 9.2 mg/dL 8.5-10.1 [facility] Work Phone: Serum or plasma creatinine m easurement (mass/volume)on 11-05-2022 Creatinine [Mass/Vol] 1.08 mg/dL 0.70-1.30 [facility] Work Phone: Comment on above: The validity of the calculated GFR & GFRAA in patients over 70 years has not been determined. Clinical correlation is essential. Serum or plasma urea nitroge n measurement (mass/volume)on 11-05-2022 Urea nitrogen [Mass/Vol] 14 mg/dL 7-18 [facility] Work Phone: Thin prep Papanicolaou smear with manual screeningon 11-05-2022 Thin prep Papanicolaou smear with manual screening 10 5-15 [facility] Work Phone: Glucose Glucometer (BldC) [M ass/Vol]on 09-23-2022 Glucose [Mass/Vol] 179 mg/dL 74-106 [facility] Work Phone: Comment on above: MANAGEMENT OF PATIEN T CARE PER NURSING PROTOCOL Absolute lymphocyte counton 05-31-2022 Lymphocytes Auto (Unsp spec) [#/Vol] 0.78 10*3/uL 0.83-4.51 [facility] Work Phone: Basophil percentageon 2021 Basophils/100 WBC (Bld) 0.1 % 0-1 [facility] Work Phone: Bilirubin [Mass/Vol] 0.40 mg/dL 0.20-1.00 [facility] Work Phone: Comment on above: For patients on eltr ombopag therapy, use of Dimension Sims TBIL is not recommended. Chloride [Moles/Vol] 102 mmol/L 98-107 [facility] Work Phone: Eosinophils/100 WBC (Bld) 0.0 % 0-5 [facility] Work Phone: Glucose [Mass/Vol] 237 mg/dL 74-106 [facility] Work Phone: Comment on above: Glucose result great er than or equal to 200 mg/dLsuggests DIABETES MELLITUS per A.D.A. criteria. Neutrophils (Bld) [#/Vol] 14.8 10*3/uL 2.0-7.7 [facility] Work Phone: Neutrophils/100 WBC (Bld) 91.1 % 47-70 [facility] Work Phone: Potassium [Moles/Vol] 4.3 mmol/L 3.5-5.1 [facility] Work Phone: Protein [Mass/Vol] 6.4 g/dL 6.4-8.2 [facility] Work Phone: Sodium [Moles/Vol] 137 mmol/L 136-145 [facility] Work Phone: WBC (Bld) [#/Vol] 16.2 10*3/uL 4.4-11.0 [facility] Work Phone: Blood erythrocytes count (nu mber/volume)on 05-31-2022 RBC (Bld) [#/Vol] 4.08 10*6/uL 4.6-6.2 [facility] Work Phone: Blood hemoglobin measurement (mass/volume)on 05-31-2022 Hemoglobin (Bld) [Mass/Vol] 13.8 g/dL 13.0-16.5 [facility] Work Phone: Blood lymphocytes/100 leukoc yteson 05-31-2022 Lymphocytes/100 WBC (Bld) 4.8 % 19-41 [facility] Work Phone: Blood monocytes/100 leukocyt eson 05-31-2022 Monocytes/100 WBC (Bld) 3.2 % 0-10 [facility] Work Phone: Blood platelet mean volumeon 05-31-2022 Platelet mean volume (Bld) [Entitic vol] 10.5 fL 6.2-12.0 [facility] Work Phone: Determination of erythrocyte mean corpuscular volume (MCV)on 05-31-2022 MCV (RBC) [Entitic vol] 102.0 fL 80-94 [facility] Work Phone: Glucose Glucometer (BldC) [M ass/Vol]on 05-31-2022 Glucose [Mass/Vol] 215 mg/dL 74-106 [facility] Work Phone: Comment on above: MANAGEMENT OF PATIEN T CARE PER NURSING PROTOCOL Hematocrit Auto (Bld) [Volum e fraction]on 05-31-2022 Hematocrit (Bld) [Volume fraction] 41.6 % 40-54 [facility] Work Phone: Laboratory - Chemistry and C hemistry - challengeon 05-31-2022 ALP [Catalytic activity/Vol] 61 U/L 45-117 [facility] Work Phone: ALT [Catalytic activity/Vol] 69 U/L 16-61 [facility] Work Phone: CO2 [Moles/Vol] 30.0 mmol/L 21.0-32.0 [facility] Work Phone: Globulin (S) [Mass/Vol] 2.9 g/dL 2.2-4.2 [facility] Work Phone: Urea nitrogen/Creatinine [Mass ratio] 24.4 mg/mg 10-20 [facility] Work Phone: Laboratory - Hematology and Cell countson 05-31-2022 Erythrocyte distribution width (RBC) [Entitic vol] 48.3 fL 35.1-43.9 [facility] Work Phone: Erythrocyte distribution width (RBC) [Ratio] 12.9 % 11.6-14.6 [facility] Work Phone: Immature granulocytes/100 WBC (Bld) 0.800 % 0.0-0.9 [facility] Work Phone: Comment on above: IG% - Immature Granu locytes (promyelocytes, myelocytes and metamyelocytes) > 1% indicates that a LEFT SHIFT is Present. MCH (RBC) [Entitic mass] 33.8 pg 27.0-32.0 [facility] Work Phone: Nucleated RBC/100 WBC (Bld) [Ratio] 0 % 0-5 [facility] Work Phone: MCHC Auto (RBC) [Mass/Vol]on 05-31-2022 MCHC (RBC) [Mass/Vol] 33.2 g/dL 32-[address] [facility] [facility] [address] [facility] Work Phone: No Panel Informationon 05-31 Estimated Creatinine Clearance Calc 73.35 ml/min [facility] Work Phone: Estimated GFR (MDRD) Amer 101 mL/min >60 [facility] Work Phone: Comment on above: GFR Calc Estimated GFR (MDRD) Non-Af Amer 84 mL/min >60 [facility] Work Phone: Comment on above: Non- GFR Calc Platelets bldon 05-31-2022 Platelets (Bld) [#/Vol] 269 10*3/uL 150-450 [facility] Work Phone: Serum or plasma albumin odette urement (mass/volume)on 05-31-2022 Albumin [Mass/Vol] 3.5 g/dL 3.2-5.0 [facility] Work Phone: Serum or plasma albumin/glob ulin mass ratioon 05-31-2022 Albumin/Globulin [Mass ratio] 1.2 {ratio} 0.9-2.4 [facility] Work Phone: Serum or plasma calcium odette urement (mass/volume)on 05-31-2022 Calcium [Mass/Vol] 9.4 mg/dL 8.5-10.1 [facility] Work Phone: Serum or plasma creatinine m easurement (mass/volume)on 05-31-2022 Creatinine [Mass/Vol] 0.94 mg/dL 0.70-1.30 [facility] Work Phone: Comment on above: The validity of the calculated GFR & GFRAA in patients over 70 years has not been determined. Clinical correlation is essential. Serum or plasma urea nitroge n measurement (mass/volume)on 05-31-2022 Urea nitrogen [Mass/Vol] 23 mg/dL 7-18 [facility] Work Phone: Thin prep Papanicolaou smear with manual screeningon 05-31-2022 Thin prep Papanicolaou smear with manual screening 25 U/L 15-37 [facility] Work Phone: Thin prep Papanicolaou smear with manual screening 5 5-15 [facility] Work Phone: Whole blood hemoglobin A1c/t otal hemoglobin ratio (mass fraction)on 05-31-2022 HbA1c (Bld) [Mass fraction] 8.2 % 3.8-5.6 [facility] Work Phone: Comment on above: Normal < 5.7 % Predi abetic 5.7 - 6.4 % Diabetic >or= 6.5 % Please note range changes. Absolute lymphocyte counton 05-29-2022 Lymphocytes Auto (Unsp spec) [#/Vol] 2.08 10*3/uL 0.83-4.51 [facility] Work Phone: Assessment of wrist artery p atency prior to arterial punctureon 05-29-2022 Arterial patency Wrist artery --pre arterial puncture Positive [facility] Work Phone: Base excesson 05-29-2022 Base excess Calc (BldV) [Moles/Vol] 3 mmol/L -2-2 [facility] Work Phone: [phone] Basophil percentageon 2021 Basophil percentage 28.1 mmol/L 22-26 [facility] Work Phone: Basophils/100 WBC (Bld) 97 % 95-99 [facility] Work Phone: Basophils/100 WBC (Bld) 0.4 % 0-1 [facility] Work Phone: Chloride [Moles/Vol] 100 mmol/L 98-107 [facility] Work Phone: Eosinophils/100 WBC (Bld) 17.2 % 0-5 [facility] Work Phone: Glucose [Mass/Vol] 211 mg/dL 74-106 [facility] Work Phone: Comment on above: Glucose result great er than or equal to 200 mg/dLsuggests DIABETES MELLITUS per A.D.A. criteria. Lactate [Moles/Vol] 1.9 mmol/L 0.4-2.0 [facility] Work Phone: Neutrophils (Bld) [#/Vol] 5.6 10*3/uL 2.0-7.7 [facility] Work Phone: Neutrophils/100 WBC (Bld) 54.2 % 47-70 [facility] Work Phone: Potassium [Moles/Vol] 4.0 mmol/L 3.5-5.1 [facility] Work Phone: Sodium [Moles/Vol] 139 mmol/L 136-145 [facility] Work Phone: WBC (Bld) [#/Vol] 10.3 10*3/uL 4.4-11.0 [facility] Work Phone: Blood eosinophils/100 leukoc yteson 05-29-2022 Eosinophils/100 WBC (Bld) 22 % 0-5 [facility] Work Phone: Blood erythrocytes count (nu mber/volume)on 05-29-2022 RBC (Bld) [#/Vol] 4.67 10*6/uL 4.6-6.2 [facility] Work Phone: Blood hemoglobin measurement (mass/volume)on 05-29-2022 Hemoglobin (Bld) [Mass/Vol] 15.9 g/dL 13.0-16.5 [facility] Work Phone: Blood lymphocytes/100 leukoc yteson 05-29-2022 Lymphocytes/100 WBC (Bld) 20.1 % 19-41 [facility] Work Phone: Lymphocytes/100 WBC (Bld) 18 % 19-41 [facility] Work Phone: Blood monocytes/100 leukocyt eson 05-29-2022 Monocytes/100 WBC (Bld) 7.4 % 0-10 [facility] Work Phone: Monocytes/100 WBC (Bld) 16 % 0-10 [facility] Work Phone: Blood platelet adequacy dete ction by light microscopyon 05-29-2022 Platelets LM Ql (Bld) ADEQUATE ADEQ [facility] Work Phone: Blood platelet mean volumeon 05-29-2022 Platelet mean volume (Bld) [Entitic vol] 9.7 fL 6.2-12.0 [facility] Work Phone: Blood segmented neutrophils/ 100 leukocyteson 05-29-2022 Segmented neutrophils/100 WBC (Bld) 44 % 47-70 [facility] Work Phone: CO2 (BldA) [Partial pressure ]on 05-29-2022 CO2 (Bld) [Partial pressure] 48.5 mm[Hg] 35-45 [facility] Work Phone: Determination of erythrocyte mean corpuscular volume (MCV)on 05-29-2022 MCV (RBC) [Entitic vol] 103.0 fL 80-94 [facility] Work Phone: Direct bilirubinon 2 Bilirubin.direct [Mass/Vol] 0.15 mg/dL 0.00-0.30 [facility] Work Phone: Hematocrit Auto (Bld) [Volum e fraction]on 05-29-2022 Hematocrit (Bld) [Volume fraction] 48.1 % 40-54 [facility] Work Phone: Laboratory - Chemistry and C hemistry - challengeon 05-29-2022 CO2 [Moles/Vol] 31.0 mmol/L 21.0-32.0 [facility] Work Phone: Natriuretic peptide B (Bld) [Mass/Vol] 17.7 pg/mL 0-100 [facility] Work Phone: Urea nitrogen/Creatinine [Mass ratio] 8.3 mg/mg 10-20 [facility] Work Phone: Laboratory - Hematology and Cell countson 05-29-2022 Erythrocyte distribution width (RBC) [Entitic vol] 50.6 fL 35.1-43.9 [facility] Work Phone: Erythrocyte distribution width (RBC) [Ratio] 13.3 % 11.6-14.6 [facility] Work Phone: Immature granulocytes/100 WBC (Bld) 0.700 % 0.0-0.9 [facility] Work Phone: Comment on above: IG% - Immature Granu locytes (promyelocytes, myelocytes and metamyelocytes) > 1% indicates that a LEFT SHIFT is Present. MCH (RBC) [Entitic mass] 34.0 pg 27.0-32.0 [facility] Work Phone: Nucleated RBC/100 WBC (Bld) [Ratio] 0 % 0-5 [facility] Work Phone: MCHC Auto (RBC) [Mass/Vol]on 05-29-2022 MCHC (RBC) [Mass/Vol] 33.1 g/dL 32-36 [facility] Work Phone: No Panel Informationon 05-29 Blood Gas Clinical Comments 16 8 [facility] Work Phone: Blood Gas Oxygen Percent 30 [facility] Work Phone: Blood Gas Sample Site L Radial [facility] Work Phone: Blood Gas Specimen Type ART [facility] Work Phone: Blood Gas Total CO2 30 mmol/L [facility] Work Phone: Oxygen Delivery Device BiPAP [facility] Work Phone: Estimated Creatinine Clearance Calc 65.24 ml/min [facility] Work Phone: Estimated GFR (MDRD) Amer 85 mL/min >60 [facility] Work Phone: Comment on above: GFR Calc Estimated GFR (MDRD) Non-Af Amer 71 mL/min >60 [facility] Work Phone: Comment on above: Non- GFR Calc Oxygen (BldA) [Partial press ure]on 05-29-2022 Oxygen (Bld) [Partial pressure] 90 mmHG 75-100 [facility] Work Phone: Platelets bldon 05-29-2022 Platelets (Bld) [#/Vol] 281 10*3/uL 150-450 [facility] Work Phone: RBC morphologyon 05-29-2022 RBC morphology finding Nom (Bld) NORM C+C NORMAL NORM C&C [facility] Work Phone: Serum or plasma calcium odette urement (mass/volume)on 05-29-2022 Calcium [Mass/Vol] 9.5 mg/dL 8.5-10.1 [facility] Work Phone: Serum or plasma creatinine m easurement (mass/volume)on 05-29-2022 Creatinine [Mass/Vol] 1.09 mg/dL 0.70-1.30 [facility] Work Phone: Comment on above: The validity of the calculated GFR & GFRAA in patients over 70 years has not been determined. Clinical correlation is essential. Serum or plasma urea nitroge n measurement (mass/volume)on 05-29-2022 Urea nitrogen [Mass/Vol] 9 mg/dL 7-18 [facility] Work Phone: Thin prep Papanicolaou smear with manual screeningon 05-29-2022 Thin prep Papanicolaou smear with manual screening 8 5-15 [facility] Work Phone: Total cell counton 2 Cells counted Molgen (Bld/Tiss) [#] 100 MANUAL DIFF [facility] Work Phone: pH measurementon 05-29-2022 pH (Unsp spec) 7.37 [pH] 7.35-7.45 [facility] Work Phone: Absolute lymphocyte counton 04-29-2022 Lymphocytes Auto (Unsp spec) [#/Vol] 1.25 10*3/uL 0.83-4.51 [facility] Work Phone: [phone] Basophil percentageon 2021 Basophils/100 WBC (Bld) 0.5 % 0-1 [facility] Work Phone: [phone] Chloride [Moles/Vol] 103 mmol/L 98-107 [facility] Work Phone: [phone] Eosinophils/100 WBC (Bld) 9.8 % 0-5 [facility] Work Phone: Glucose [Mass/Vol] 168 mg/dL 74-106 [facility] Work Phone: Comment on above: Fasting Glucose resu lt greater than or equal to 126 mg/dL suggests DIABETES MELLITUS per A.D.A. criteria. Neutrophils (Bld) [#/Vol] 4.0 10*3/uL 2.0-7.7 [facility] Work Phone: Neutrophils/100 WBC (Bld) 59.9 % 47-70 [facility] Work Phone: Potassium [Moles/Vol] 3.9 mmol/L 3.5-5.1 [facility] Work Phone: Sodium [Moles/Vol] 138 mmol/L 136-145 [facility] Work Phone: WBC (Bld) [#/Vol] 6.7 10*3/uL 4.4-11.0 [facility] Work Phone: Blood erythrocytes count (nu mber/volume)on 04-29-2022 RBC (Bld) [#/Vol] 4.08 10*6/uL 4.6-6.2 [facility] Work Phone: Blood hemoglobin measurement (mass/volume)on 04-29-2022 Hemoglobin (Bld) [Mass/Vol] 14.0 g/dL 13.0-16.5 [facility] Work Phone: Blood lymphocytes/100 leukoc yteson 04-29-2022 Lymphocytes/100 WBC (Bld) 18.8 % 19-41 [facility] Work Phone: Blood monocytes/100 leukocyt eson 04-29-2022 Monocytes/100 WBC (Bld) 10.7 % 0-10 [facility] Work Phone: [phone] Blood platelet mean volumeon 04-29-2022 Platelet mean volume (Bld) [Entitic vol] 9.8 fL 6.2-12.0 [facility] Work Phone: Determination of erythrocyte mean corpuscular volume (MCV)on 04-29-2022 MCV (RBC) [Entitic vol] 100.5 fL 80-94 [facility] Work Phone: Hematocrit Auto (Bld) [Volum e fraction]on 04-29-2022 Hematocrit (Bld) [Volume fraction] 41.0 % 40-54 [facility] Work Phone: Laboratory - Chemistry and C hemistry - challengeon 04-29-2022 CO2 [Moles/Vol] 29.0 mmol/L 21.0-32.0 [facility] Work Phone: Urea nitrogen/Creatinine [Mass ratio] 9.4 mg/mg 10-20 [facility] Work Phone: Laboratory - Hematology and Cell countson 04-29-2022 Erythrocyte distribution width (RBC) [Entitic vol] 50.4 fL 35.1-43.9 [facility] Work Phone: Erythrocyte distribution width (RBC) [Ratio] 13.9 % 11.6-14.6 [facility] Work Phone: Immature granulocytes/100 WBC (Bld) 0.300 % 0.0-0.9 [facility] Work Phone: Comment on above: IG% - Immature Granu locytes (promyelocytes, myelocytes and metamyelocytes) > 1% indicates that a LEFT SHIFT is Present. MCH (RBC) [Entitic mass] 34.3 pg 27.0-32.0 [facility] Work Phone: Nucleated RBC/100 WBC (Bld) [Ratio] 0 % 0-5 [facility] Work Phone: MCHC Auto (RBC) [Mass/Vol]on 04-29-2022 MCHC (RBC) [Mass/Vol] 34.1 g/dL 32-[address] [facility] [facility] Work Phone: No Panel Informationon 04-29 Estimated Creatinine Clearance Calc 76.34 ml/min [facility] Work Phone: Estimated GFR (MDRD) Amer 99 mL/min >60 [facility] Work Phone: Comment on above: GFR Calc Estimated GFR (MDRD) Non-Af Amer 82 mL/min >60 [facility] Work Phone: Comment on above: Non- GFR Calc Troponin I High Sensitivity 7 pg/mL 3.0-78.0 [facility] Work Phone: Comment on above: Please Note: [place] t Units and Gender Specific Reference Ranges. For more information see Policy Stat Procedure Sims High Sensitivity Troponin (TNIH) and attachments. Platelets bldon 04-29-2022 Platelets (Bld) [#/Vol] 296 10*3/uL 150-450 [facility] Work Phone: Serum or plasma calcium odette urement (mass/volume)on 04-29-2022 Calcium [Mass/Vol] 9.4 mg/dL 8.5-10.1 [facility] Work Phone: Serum or plasma creatinine m easurement (mass/volume)on 04-29-2022 Creatinine [Mass/Vol] 0.96 mg/dL 0.70-1.30 [facility] Work Phone: Comment on above: The validity of the calculated GFR & GFRAA in patients over 70 years has not been determined. Clinical correlation is essential. Serum or plasma urea nitroge n measurement (mass/volume)on 04-29-2022 Urea nitrogen [Mass/Vol] 9 mg/dL 7-18 [facility] Work Phone: Thin prep Papanicolaou smear with manual screeningon 04-29-2022 Thin prep Papanicolaou smear with manual screening 6 5-15 [facility] Work Phone: Glucose Glucometer (BldC) [M ass/Vol]on 03-25-2022 Glucose [Mass/Vol] 171 mg/dL 74-106 [facility] Work Phone: Comment on above: MANAGEMENT OF PATIEN T CARE PER NURSING PROTOCOL Basophil percentageon 2021 Creatinine [Mass/Vol] 1.0 mg/dL 0.70-1.30 [facility] Work Phone: No Panel Informationon 02-20 Bedside Estimated GFR (eGFR) > 60.0000 mL/min >60 [facility] Work Phone: Basophil percentageon 2021 Basophil percentage 0 SEEN /hpf 0-5 [facility] Work Phone: Bilirubin Test strip Ql (U)o n 01-14-2022 Bilirubin Ql (U) Negative Negative [facility] Work Phone: Ketones Test strip Ql (U)on 01-14-2022 Ketones Ql (U) Negative Negative [facility] Work Phone: Mucus LM Ql (Urine sed)on Mucus Ql (Urine sed) 0 SEEN /hpf [facility] Work Phone: Nitrite Test strip Ql (U)on 01-14-2022 Nitrite Ql (U) Negative Negative [facility] Work Phone: Protein Test strip Ql (U)on 01-14-2022 Protein Ql (U) Negative Negative [facility] Work Phone: Squamous epithelial cells de tection in urine sediment by light microscopyon 01-14-2022 Epithelial cells.squamous LM Ql (Urine sed) 0 SEEN /hpf 0-5 [facility] Work Phone: Urine blood detectionon RBC Ql (U) Negative Negative [facility] Work Phone: RBC Ql (U) 0 SEEN /hpf 0-5 [facility] Work Phone: Urine clarityon 01-14-2022 Clarity (U) Clear Clear [facility] Work Phone: Urine color determinationon 01-14-2022 Color (U) Yellow Yellow [facility] Work Phone: Urine glucose detectionon Glucose Ql (U) Normal mg/dl Normal [facility] Work Phone: Urine leukocyte esterase det ection by dipstickon 01-14-2022 Leukocyte esterase Test strip Ql (U) Negative Negative [facility] Work Phone: Urine pHon 01-14-2022 pH (U) 7.0 [pH] 5.0 - 8.0 [facility] Work Phone: Urine sediment bacteria coun t by microscopy (number/high power field)on 01-14-2022 Bacteria LM.HPF (Urine sed) [#/Area] 0 /[HPF] None Seen [facility] Work Phone: Urine specific gravity measu rementon 01-14-2022 Specific gravity (U) [Rel density] 1.010 1.002-1.030 [facility] Work Phone: Urobilinogen Auto test strip Ql (U)on 01-14-2022 Urobilinogen Ql (U) Normal mg/dl Normal [facility] Work Phone: Absolute lymphocyte counton 01-13-2022 Lymphocytes Auto (Unsp spec) [#/Vol] 2.18 10*3/uL 0.83-4.51 [facility] Work Phone: Basophil percentageon 2021 Basophils/100 WBC (Bld) 0.3 % 0-1 [facility] Work Phone: Bilirubin [Mass/Vol] 0.50 mg/dL 0.20-1.00 [facility] Work Phone: Comment on above: For patients on eltr ombopag therapy, use of Dimension Sims TBIL is not recommended. Chloride [Moles/Vol] 101 mmol/L 98-107 [facility] Work Phone: Eosinophils/100 WBC (Bld) 7.4 % 0-5 [facility] Work Phone: Glucose [Mass/Vol] 223 mg/dL 74-106 [facility] Work Phone: Comment on above: Glucose result great er than or equal to 200 mg/dLsuggests DIABETES MELLITUS per A.D.A. criteria. Lactate [Moles/Vol] 1.4 mmol/L 0.4-2.0 [facility] Work Phone: [phone] Neutrophils (Bld) [#/Vol] 6.9 10*3/uL 2.0-7.7 [facility] Work Phone: [phone] Neutrophils/100 WBC (Bld) 64.2 % 47-70 [facility] Work Phone: Potassium [Moles/Vol] 4.0 mmol/L 3.5-5.[address] [facility] Work Phone: [phone] Protein [Mass/Vol] 7.4 g/dL 6.4-8.2 [facility] Work Phone: [phone] Sodium [Moles/Vol] 138 mmol/L 136-145 [facility] Work Phone: WBC (Bld) [#/Vol] 10.7 10*3/uL 4.4-11.0 [facility] Work Phone: [phone] Blood erythrocytes count (nu mber/volume)on 01-13-2022 RBC (Bld) [#/Vol] 4.74 10*6/uL 4.6-6.2 [facility] Work Phone: Blood hemoglobin measurement (mass/volume)on 01-13-2022 Hemoglobin (Bld) [Mass/Vol] 16.2 g/dL 13.0-16.5 [facility] Work Phone: Blood lymphocytes/100 leukoc yteson 01-13-2022 Lymphocytes/100 WBC (Bld) 20.4 % 19-41 [facility] Work Phone: [phone] Blood monocytes/100 leukocyt eson 01-13-2022 Monocytes/100 WBC (Bld) 7.1 % 0-10 [facility] Work Phone: Blood platelet mean volumeon 01-13-2022 Platelet mean volume (Bld) [Entitic vol] 10.4 fL 6.2-12.0 [facility] Work Phone: Culture, urineon 01-13-2022 Bacteria identified Cx Nom (U) Positive [facility] Work Phone: Determination of erythrocyte mean corpuscular volume (MCV)on 01-13-2022 MCV (RBC) [Entitic vol] 101.5 fL 80-94 [facility] Work Phone: Hematocrit Auto (Bld) [Volum e fraction]on 01-13-2022 Hematocrit (Bld) [Volume fraction] 48.1 % 40-54 [facility] Work Phone: INR in Blood by Coagulation assayon 01-13-2022 INR Coag (Bld) [Relative time] 1.0 {INR} [facility] Work Phone: Laboratory - Chemistry and C hemistry - challengeon 01-13-2022 ALP [Catalytic activity/Vol] 78 U/L 45-117 [facility] Work Phone: ALT [Catalytic activity/Vol] 141 U/L 16-61 [facility] Work Phone: CO2 [Moles/Vol] 34.0 mmol/L 21.0-32.0 [facility] Work Phone: Globulin (S) [Mass/Vol] 3.5 g/dL 2.2-4.2 [facility] Work Phone: Natriuretic peptide B (Bld) [Mass/Vol] 14.4 pg/mL 0-100 [facility] Work Phone: Urea nitrogen/Creatinine [Mass ratio] 10.8 mg/mg 10-20 [facility] Work Phone: Laboratory - Coagulationon 0 01-13-2022 aPTT Coag (Bld) [Time] 24.6 s 24.1-36.2 yasir [facility] Work Phone: PT Coag (PPP) [Time] 12.6 s 11.7-14.9 os [facility] Work Phone: Laboratory - Hematology and Cell countson 01-13-2022 Erythrocyte distribution width (RBC) [Entitic vol] 49.1 fL 35.1-43.9 [facility] Work Phone: Erythrocyte distribution width (RBC) [Ratio] 13.0 % 11.6-14.6 [facility] Work Phone: Immature granulocytes/100 WBC (Bld) 0.600 % 0.0-0.9 [facility] Work Phone: Comment on above: IG% - Immature Granu locytes (promyelocytes, myelocytes and metamyelocytes) > 1% indicates that a LEFT SHIFT is Present. MCH (RBC) [Entitic mass] 34.2 pg 27.0-32.0 [facility] Work Phone: Nucleated RBC/100 WBC (Bld) [Ratio] 0 % 0-5 [facility] Work Phone: Laboratory - Microbiology an d Antimicrobial susceptibilityon 01-13-2022 Bacteria identified Cx Nom (Bld) No growth in 5 days. [facility] Work Phone: MCHC Auto (RBC) [Mass/Vol]on 01-13-2022 MCHC (RBC) [Mass/Vol] 33.7 g/dL 32-36 [facility] Work Phone: No Panel Informationon 01-13 Estimated Creatinine Clearance Calc 64.07 ml/min [facility] Work Phone: Estimated GFR (MDRD) Amer 84 mL/min >60 [facility] Work Phone: Comment on above: GFR Calc Estimated GFR (MDRD) Non-Af Amer 69 mL/min >60 [facility] Work Phone: Comment on above: Non- GFR Calc Troponin I High Sensitivity 7 pg/mL 3.0-78.0 [facility] Work Phone: Comment on above: Please Note: [place] t Units and Gender Specific Reference Ranges. For more information see Policy Stat Procedure Sims High Sensitivity Troponin (TNIH) and attachments. Platelets bldon 01-13-2022 Platelets (Bld) [#/Vol] 258 10*3/uL 150-450 [facility] Work Phone: Serum or plasma albumin odette urement (mass/volume)on 01-13-2022 Albumin [Mass/Vol] 3.9 g/dL 3.2-5.0 [facility] Work Phone: Serum or plasma albumin/glob ulin mass ratioon 01-13-2022 Albumin/Globulin [Mass ratio] 1.1 {ratio} 0.9-2.4 [facility] Work Phone: Serum or plasma calcium odette urement (mass/volume)on 01-13-2022 Calcium [Mass/Vol] 9.5 mg/dL 8.5-10.1 [facility] Work Phone: Serum or plasma creatinine m easurement (mass/volume)on 01-13-2022 Creatinine [Mass/Vol] 1.11 mg/dL 0.70-1.30 [facility] Work Phone: Comment on above: The validity of the calculated GFR & GFRAA in patients over 70 years has not been determined. Clinical correlation is essential. Serum or plasma urea nitroge n measurement (mass/volume)on 01-13-2022 Urea nitrogen [Mass/Vol] 12 mg/dL 7-18 [facility] Work Phone: Thin prep Papanicolaou smear with manual screeningon 01-13-2022 Thin prep Papanicolaou smear with manual screening 59 U/L 15-37 [facility] Work Phone: Thin prep Papanicolaou smear with manual screening 3 5-15 [facility] Work Phone: Absolute lymphocyte counton 12-23-2021 Lymphocytes Auto (Unsp spec) [#/Vol] 2.19 10*3/uL 0.83-4.51 [facility] Work Phone: Basophil percentageon 2021 Basophils/100 WBC (Bld) 0.5 % 0-1 [facility] Work Phone: Chloride [Moles/Vol] 102 [facility]L 98-107 [facility] Eosinophils/100 WBC (Bld) 12.7 % 0-5 [facility] Work Phone: Glucose [Mass/Vol] 169 mg/dL 74-106 [facility] Work Phone: Comment on above: Fasting Glucose resu lt greater than or equal to 126 mg/dL suggests DIABETES MELLITUS per A.D.A. criteria. Neutrophils (Bld) [#/Vol] 5.6 10*3/uL 2.0-7.7 [facility] Work Phone: Neutrophils/100 WBC (Bld) 55.6 % 47-70 [facility] Work Phone: Potassium [Moles/Vol] 4.0 mmol/L 3.5-5.1 [facility] Work Phone: [phone] Sodium [Moles/Vol] 137 mmol/L 136-145 [facility] Work Phone: WBC (Bld) [#/Vol] 10.1 10*3/uL 4.4-11.0 [facility] Work Phone: Blood erythrocytes count (nu mber/volume)on 12-23-2021 RBC (Bld) [#/Vol] 4.98 10*6/uL 4.6-6.2 [facility] Work Phone: Blood hemoglobin measurement (mass/volume)on 12-23-2021 Hemoglobin (Bld) [Mass/Vol] 16.5 g/dL 13.0-16.5 [facility] Work Phone: Blood lymphocytes/100 leukoc yteson 12-23-2021 Lymphocytes/100 WBC (Bld) 21.6 % 19-41 [facility] Work Phone: [phone] Blood monocytes/100 leukocyt eson 12-23-2021 Monocytes/100 WBC (Bld) 9.4 % 0-10 [facility] Work Phone: Blood platelet mean volumeon 12-23-2021 Platelet mean volume (Bld) [Entitic vol] 10.2 fL 6.2-12.0 [facility] Work Phone: Determination of erythrocyte mean corpuscular volume (MCV)on 12-23-2021 MCV (RBC) [Entitic vol] 98.8 fL 80-94 [facility] Work Phone: Hematocrit Auto (Bld) [Volum e fraction]on 12-23-2021 Hematocrit (Bld) [Volume fraction] 49.2 % 40-54 [facility] Work Phone: Laboratory - Chemistry and C hemistry - challengeon 12-23-2021 CO2 [Moles/Vol] 31.0 mmol/L 21.0-32.0 [facility] Work Phone: Urea nitrogen/Creatinine [Mass ratio] 9.3 mg/mg 10-20 [facility] Work Phone: Laboratory - Hematology and Cell countson 12-23-2021 Erythrocyte distribution width (RBC) [Entitic vol] 50.1 fL 35.1-43.9 [facility] Work Phone: Erythrocyte distribution width (RBC) [Ratio] 13.8 % 11.6-14.6 [facility] Work Phone: Immature granulocytes/100 WBC (Bld) 0.200 % 0.0-0.9 [facility] Work Phone: Comment on above: IG% - Immature Granu locytes (promyelocytes, myelocytes and metamyelocytes) > 1% indicates that a LEFT SHIFT is Present. MCH (RBC) [Entitic mass] 33.1 pg 27.0-32.0 [facility] Work Phone: Nucleated RBC/100 WBC (Bld) [Ratio] 0 % 0-5 [facility] Work Phone: MCHC Auto (RBC) [Mass/Vol]on 12-23-2021 MCHC (RBC) [Mass/Vol] 33.5 g/dL 32-36 [facility] Work Phone: No Panel Informationon 12-23 Estimated Creatinine Clearance Calc 62.40 ml/min [facility] Work Phone: Estimated GFR (MDRD) Amer 87 mL/min >60 [facility] Work Phone: Comment on above: GFR Calc Estimated GFR (MDRD) Non-Af Amer 72 mL/min >60 [facility] Work Phone: Comment on above: Non- GFR Calc Troponin I High Sensitivity 9 pg/mL 3.0-78.0 [facility] Work Phone: Comment on above: Please Note: [place] t Units and Gender Specific Reference Ranges. For more information see Policy Stat Procedure Sims High Sensitivity Troponin (TNIH) and attachments. SARS-CoV-2 Antigen (Rapid) [facility] Work Phone: Platelets bldon 12-23-2021 Platelets (Bld) [#/Vol] 317 10*3/uL 150-450 [facility] Work Phone: Serum or plasma calcium odette urement (mass/volume)on 12-23-2021 Calcium [Mass/Vol] 9.6 mg/dL 8.5-10.1 [facility] Work Phone: Serum or plasma creatinine m easurement (mass/volume)on 12-23-2021 Creatinine [Mass/Vol] 1.07 mg/dL 0.70-1.30 [facility] Work Phone: Comment on above: The validity of the calculated GFR & GFRAA in patients over 70 years has not been determined. Clinical correlation is essential. Serum or plasma urea nitroge n measurement (mass/volume)on 12-23-2021 Urea nitrogen [Mass/Vol] 10 mg/dL 7-18 [facility] Work Phone: Thin prep Papanicolaou smear with manual screeningon 12-23-2021 Thin prep Papanicolaou smear with manual screening 4 5-15 [facility] Work Phone: Bronchoalveolar lavage cultu re with Gram stain Respiratory microbial culture or Staphylococcus aureus isolated. [facility] Work Phone: Culture, urine Bacteria identified Cx Nom (U) Positive [facility] Work Phone: Gram stain for investigation of transfusion reaction Microscopic observation Gram stain Nom (Unsp spec) [facility] Work Phone: Laboratory - Microbiology an d Antimicrobial susceptibility Bacteria identified Cx Nom (Bld) No growth in 5 days. [facility] Work Phone: Vital Signs Date Time Vital Sign Value Performing Clinician Facility 05-30-2025 10:49-0400 Body temperature 97.8 [degF] [facility] 05-30-2025 10:49-0400 Diastolic blood pressure 76 mm[Hg] [facility] 05-30-2025 10:49-0400 Heart rate 74 /min [facility] 05-30-2025 10:49-0400 Respiratory rate 18 /min [facility] 05-30-2025 10:49-0400 SaO2% (BldA) [Mass fraction] 99 % [facility] 05-30-2025 10:49-0400 Systolic blood pressure 136 mm[Hg] [facility] 05-30-2025 08:50-0400 Body height 180.34 cm [facility] 05-30-2025 08:50-0400 Body mass index (BMI) [Ratio] 58.3 kg/m2 [facility] 05-30-2025 08:50-0400 Body weight 190 kg [facility] 03-01-2025 09:21-0400 Body temperature 98.1 [degF] [facility] 03-01-2025 09:21-0400 Body weight 87.6 kg [facility] 03-01-2025 09:21-0400 Diastolic blood pressure 79 mm[Hg] [facility] 03-01-2025 09:21-0400 Heart rate 79 /min [facility] 03-01-2025 09:21-0400 Respiratory rate 17 /min [facility] 03-01-2025 09:21-0400 SaO2% (BldA) [Mass fraction] 95 % [facility] 03-01-2025 09:21-0400 Systolic blood pressure 124 mm[Hg] [facility] 12-24-2024 09:38-0500 Heart rate 81 /min [facility] 12-24-2024 09:25-0500 Body temperature 97.5 [degF] [facility] 12-24-2024 09:25-0500 Diastolic blood pressure 89 mm[Hg] [facility] 12-24-2024 09:25-0500 Respiratory rate 18 /min [facility] 12-24-2024 09:25-0500 SaO2% (BldA) [Mass fraction] 96 % [facility] 12-24-2024 09:25-0500 Systolic blood pressure 123 mm[Hg] [facility] 12-24-2024 07:30-0500 Inhaled oxygen flow rate 2 L/min [facility] 12-23-2024 15:30-0500 Inhaled oxygen concentration 2 % [facility] 12-21-2024 16:06-0500 Body height 180.34 cm [facility] 12-21-2024 16:06-0500 Body weight 84.7 kg [facility] 12-21-2024 12:09-0500 Body mass index (BMI) [Ratio] 26 kg/m2 [facility] 11-26-2024 11:36-0500 Body temperature 97.52 [degF] DR KWADWO JAIME MD [facility] 11-26-2024 11:36-0500 Diastolic Blood Pressure Non-Invasive 76 mm[Hg] DR KWADWO JAIME MD [facility] 11-26-2024 11:36-0500 Heart rate 60 /min DR KWADWO JAIME MD [facility] 11-26-2024 11:36-0500 Reason For Taking VItal Signs DR KWADWO JAIME MD [facility] 11-26-2024 11:36-0500 Respiratory rate 17 /min DR KWADWO JAIME MD [facility] 11-26-2024 11:36-0500 Systolic Blood Pressure Non-Invasive 130 mm[Hg] DR KWADWO JAIME MD [facility] 11-26-2024 07:30-0500 Body temperature 98.42 [degF] DR KWADWO JAIME MD [facility] 11-26-2024 07:30-0500 Diastolic Blood Pressure Non-Invasive 70 mm[Hg] DR KWADWO JAIME MD [facility] 11-26-2024 07:30-0500 Heart rate 66 /min DR KWADWO JAIME MD [facility] 11-26-2024 07:30-0500 Reason For Taking VItal Signs DR KWADWO JAIME MD [facility] 11-26-2024 07:30-0500 Respiratory rate 17 /min DR KWADWO JAIME MD [facility] 11-26-2024 07:30-0500 Systolic Blood Pressure Non-Invasive 129 mm[Hg] DR KWADWO JAIME MD [facility] 11-26-2024 03:52-0500 Body temperature 98.06 [degF] DR KWADWO JAIME MD [facility] 11-26-2024 03:52-0500 Diastolic Blood Pressure Non-Invasive 79 mm[Hg] DR KWADWO JAIME MD [facility] 11-26-2024 03:52-0500 Heart rate 66 /min DR KWADWO JAIME MD [facility] 11-26-2024 03:52-0500 Respiratory rate 28 /min DR KWADWO JAIME MD [facility] 11-26-2024 03:52-0500 Systolic Blood Pressure Non-Invasive 129 mm[Hg] DR KWADWO JAIME MD [facility] 11-25-2024 19:00-0500 Heart rate 62 /min DR KWADWO JAIME MD [facility] 11-25-2024 19:00-0500 Reason For Taking VItal Signs DR KWADWO JAIME MD [facility] 11-25-2024 15:23-0500 Heart rate 58 /min DR KWADWO JAIME MD [facility] 11-25-2024 15:19-0500 Body height 180.[address] KWADWO JAIME MD [facility] 11-25-2024 15:19-0500 Body weight 90.[address] KWADWO JAIME MD [facility] 11-25-2024 15:19-0500 Body weight 27.96 kg/m2 DR KWADWO JAIME MD [facility] 11-25-2024 14:09-0500 Body temperature 97.7 [degF] DR KWADWO JAIME MD [facility] 11-25-2024 14:00-0500 Respiratory Rate - Anes 7 br/min DR KWADWO JAIME MD [facility] 11-25-2024 13:55-0500 Respiratory Rate - Anes 15 br/min DR KWADWO JAIME MD [facility] 11-25-2024 13:50-0500 Respiratory Rate - Anes 15 br/min DR KWADWO AJIME MD [facility] 11-25-2024 13:45-0500 Body temperature 96.8 [degF] DR KWADWO JAIME MD [facility] 11-25-2024 13:30-0500 Body temperature 96.8 [degF] DR KWADWO JAIME MD [facility] 11-25-2024 13:15-0500 Body temperature 96.8 [degF] DR KWADWO JAIME MD [facility] 11-25-2024 12:09-0500 Body height 180.[address] KWADWO JAIME MD [facility] 11-25-2024 12:09-0500 Body weight 90.[address] KWADWO JAIME MD [facility] 11-25-2024 12:09-0500 Heart rate 81 /min DR KWADWO JAIME MD [facility] 11-11-2024 10:23-0500 Blood Pressure Cuff Size DR KWADWO JAIME MD [facility] 11-11-2024 10:23-[address] KWADWO JAIME MD [facility] 11-11-2024 10:23-[address] KWADWO JAIME MD [facility] 11-11-2024 10:23-0500 Body height 180.[address] KWADWO JAIME MD [facility] 11-11-2024 10:23-0500 Body weight 90.[address] KWADWO JAIME MD [facility] 11-11-2024 10:23-0500 Body weight 27.96 kg/m2 DR KWADWO JAIME MD [facility] 11-11-2024 10:23-0500 Diastolic Blood Pressure Non-Invasive 80 mm[Hg] DR KWADWO JAIME MD [facility] 11-11-2024 10:23-0500 Heart rate 97 /min DR KWADWO JAIME MD [facility] 11-11-2024 10:23-0500 Systolic Blood Pressure Non-Invasive 123 mm[Hg] DR KWADWO JAIME MD [facility] 10-07-2024 11:16-0500 Body temperature 97.6 [degF] [facility] 10-07-2024 11:16-0500 Diastolic blood pressure 88 mm[Hg] [facility] 10-07-2024 11:16-0500 Heart rate 72 /min [facility] 10-07-2024 11:16-0500 Respiratory rate 15 /min [facility] 10-07-2024 11:16-0500 SaO2% (BldA) [Mass fraction] 95 % [facility] 10-07-2024 11:16-0500 Systolic blood pressure 127 mm[Hg] [facility] 10-07-2024 08:23-0500 Body mass index (BMI) [Ratio] 27.4 kg/m2 [facility] 10-07-2024 08:23-0500 Body weight 89.4 kg [facility] 10-05-2024 14:00-0500 Body temperature 97.8 [degF] [facility] 10-05-2024 14:00-0500 Diastolic blood pressure 67 mm[Hg] [facility] 10-05-2024 14:00-0500 Heart rate 78 /min [facility] 10-05-2024 14:00-0500 Respiratory rate 18 /min [facility] 10-05-2024 14:00-0500 SaO2% (BldA) [Mass fraction] 92 % [facility] 10-05-2024 14:00-0500 Systolic blood pressure 106 mm[Hg] [facility] 10-05-2024 08:00-0500 Inhaled oxygen flow rate 2 L/min [facility] 10-05-2024 03:08-0500 Body mass index (BMI) [Ratio] 26.9 kg/m2 [facility] 10-05-2024 03:08-0500 Body weight 87.7 kg [facility] 10-04-2024 22:00-0500 Inhaled oxygen concentration 3 % [facility] 07-01-2023 12:01-0400 SaO2% (BldA) [Mass fraction] 97 % [facility] 07-01-2023 12:00-0400 Body temperature 98 [degF] [facility] 07-01-2023 12:00-0400 Diastolic blood pressure 79 mm[Hg] [facility] 07-01-2023 12:00-0400 Heart rate 69 /min [facility] 07-01-2023 12:00-0400 Inhaled oxygen flow rate 2 L/min [facility] 07-01-2023 12:00-0400 Respiratory rate 16 /min [facility] 07-01-2023 12:00-0400 Systolic blood pressure 113 mm[Hg] [facility] 07-01-2023 07:50-0400 Body height 180.34 cm [facility] 07-01-2023 07:50-0400 Body mass index (BMI) [Ratio] 28.9 kg/m2 [facility] 07-01-2023 07:50-0400 Body weight 94 kg [facility] 06-10-2023 13:34-0400 Body mass index (BMI) [Ratio] 29.7 kg/m2 [facility] 06-10-2023 13:34-0400 Body weight 96.61 kg [facility] 06-10-2023 13:34-0400 Diastolic blood pressure 74 mm[Hg] [facility] 06-10-2023 13:34-0400 Respiratory rate 18 /min [facility] 06-10-2023 13:34-0400 Systolic blood pressure 129 mm[Hg] [facility] 04-29-2023 09:19-0400 Body mass index (BMI) [Ratio] 29.7 kg/m2 [facility] 04-29-2023 09:19-0400 Body temperature 97.5 [degF] [facility] 04-29-2023 09:19-0400 Body weight 96.78 kg [facility] 04-29-2023 09:19-0400 Diastolic blood pressure 82 mm[Hg] [facility] 04-29-2023 09:19-0400 Heart rate 60 /min [facility] 04-29-2023 09:19-0400 Respiratory rate 17 /min [facility] 04-29-2023 09:19-0400 SaO2% (BldA) [Mass fraction] 95 % [facility] 04-29-2023 09:19-0400 Systolic blood pressure 141 mm[Hg] [facility] 11-05-2022 15:00-0500 Heart rate 84 /min [facility] Work Phone: 11-05-2022 15:00-0500 Respiratory rate 17 /min [facility] Work Phone: 11-05-2022 15:00-0500 SaO2% (BldA) [Mass fraction] 95 % [facility] Work Phone: 11-05-2022 09:56-0500 Body height 180.34 cm [facility] Work Phone: 11-05-2022 09:56-0500 Body mass index (BMI) [Ratio] 32.1 kg/m2 [facility] Work Phone: 11-05-2022 09:56-0500 Body temperature 97.8 [degF] [facility] Work Phone: 11-05-2022 09:56-0500 Body weight 104.37 kg [facility] Work Phone: 11-05-2022 09:56-0500 Diastolic blood pressure 85 mm[Hg] [facility] Work Phone: 11-05-2022 09:56-0500 Inhaled oxygen flow rate 3 L/min [facility] Work Phone: 11-05-2022 09:56-0500 Systolic blood pressure 137 mm[Hg] [facility] Work Phone: 10-30-2022 10:38-0500 Body mass index (BMI) [Ratio] 28.4 kg/m2 [facility] Work Phone: 10-30-2022 10:38-0500 Body temperature 96.8 [degF] [facility] Work Phone: 10-30-2022 10:38-0500 Body weight 92.53 kg [facility] Work Phone: 10-30-2022 10:38-0500 Diastolic blood pressure 92 mm[Hg] [facility] Work Phone: 10-30-2022 10:38-0500 Heart rate 87 /min [facility] Work Phone: 10-30-2022 10:38-0500 Respiratory rate 16 /min [facility] Work Phone: 10-30-2022 10:38-0500 SaO2% (BldA) [Mass fraction] 94 % [facility] Work Phone: 10-30-2022 10:38-0500 Systolic blood pressure 163 mm[Hg] [facility] Work Phone: 10-13-2022 11:32-0500 Body height 180.34 cm [facility] Work Phone: 10-13-2022 11:32-0500 Body mass index (BMI) [Ratio] 32.6 kg/m2 [facility] Work Phone: 10-13-2022 11:32-0500 Body temperature 97.9 [degF] [facility] Work Phone: 10-13-2022 11:32-0500 Body weight 106.14 kg [facility] Work Phone: 10-13-2022 11:32-0500 Diastolic blood pressure 104 mm[Hg] [facility] Work Phone: 10-13-2022 11:32-0500 Heart rate 86 /min [facility] Work Phone: 10-13-2022 11:32-0500 Respiratory rate 16 /min [facility] Work Phone: 10-13-2022 11:32-0500 SaO2% (BldA) [Mass fraction] 97 % [facility] Work Phone: 10-13-2022 11:32-0500 Systolic blood pressure 178 mm[Hg] [facility] Work Phone: 09-23-2022 08:25-0500 Body temperature 98.1 [degF] [facility] Work Phone: 09-23-2022 08:25-0500 Diastolic blood pressure 71 mm[Hg] [facility] Work Phone: 09-23-2022 08:25-0500 Heart rate 64 /min [facility] Work Phone: 09-23-2022 08:25-0500 Inhaled oxygen flow rate 4 L/min [facility] Work Phone: 09-23-2022 08:25-0500 Respiratory rate 16 /min [facility] Work Phone: 09-23-2022 08:25-0500 SaO2% (BldA) [Mass fraction] 95 % [facility] Work Phone: 09-23-2022 08:25-0500 Systolic blood pressure 113 mm[Hg] [facility] Work Phone: 09-23-2022 07:03-0500 Body height 180.34 cm [facility] Work Phone: 09-23-2022 07:03-0500 Body mass index (BMI) [Ratio] 30.8 kg/m2 [facility] Work Phone: 09-23-2022 07:03-0500 Body weight 100.2 kg [facility] Work Phone: 08-21-2022 08:54-0400 Body temperature 97.1 [degF] [facility] Work Phone: 08-21-2022 08:54-0400 Body weight 103.07 kg [facility] Work Phone: 08-21-2022 08:54-0400 Diastolic blood pressure 83 mm[Hg] [facility] Work Phone: 08-21-2022 08:54-0400 Heart rate 60 /min [facility] Work Phone: 08-21-2022 08:54-0400 Respiratory rate 17 /min [facility] Work Phone: 08-21-2022 08:54-0400 SaO2% (BldA) [Mass fraction] 96 % [facility] Work Phone: 08-21-2022 08:54-0400 Systolic blood pressure 149 mm[Hg] [facility] Work Phone: 07-28-2022 14:07-0400 Body mass index (BMI) [Ratio] 31.2 kg/m2 [facility] Work Phone: 07-28-2022 14:07-0400 Body temperature 97.7 [degF] [facility] Work Phone: 07-28-2022 14:07-0400 Body weight 101.74 kg [facility] Work Phone: 07-28-2022 14:07-0400 Diastolic blood pressure 85 mm[Hg] [facility] Work Phone: 07-28-2022 14:07-0400 Heart rate 75 /min [facility] Work Phone: 07-28-2022 14:07-0400 Inhaled oxygen flow rate 2 L/min [facility] Work Phone: 07-28-2022 14:07-0400 Respiratory rate 20 /min [facility] Work Phone: 07-28-2022 14:07-0400 SaO2% (BldA) [Mass fraction] 93 % [facility] Work Phone: 07-28-2022 14:07-0400 Systolic blood pressure 135 mm[Hg] [facility] Work Phone: 05-31-2022 08:00-0400 Body temperature 97.7 [degF] [facility] Work Phone: 05-31-2022 08:00-0400 Diastolic blood pressure 75 mm[Hg] [facility] Work Phone: 05-31-2022 08:00-0400 Heart rate 56 /min [facility] Work Phone: 05-31-2022 08:00-0400 Inhaled oxygen flow rate 3 L/min [facility] Work Phone: 05-31-2022 08:00-0400 Respiratory rate 18 /min [facility] Work Phone: 05-31-2022 08:00-0400 SaO2% (BldA) [Mass fraction] 95 % [facility] Work Phone: 05-31-2022 08:00-0400 Systolic blood pressure 114 mm[Hg] [facility] Work Phone: 05-31-2022 05:11-0400 Inhaled oxygen concentration 30 % [facility] Work Phone: 05-31-2022 03:26-0400 Body weight 98.2 kg [facility] Work Phone: 05-30-2022 10:18-0400 Body height 180.01 cm [facility] Work Phone: 05-29-2022 09:14-0400 Body mass index (BMI) [Ratio] 30.5 kg/m2 [facility] Work Phone: 05-29-2022 08:38-0400 Body temperature 97 [degF] [facility] Work Phone: 05-29-2022 08:38-0400 Diastolic blood pressure 77 mm[Hg] [facility] Work Phone: 05-29-2022 08:38-0400 Heart rate 62 /min [facility] Work Phone: 05-29-2022 08:38-0400 Inhaled oxygen concentration 30 % [facility] Work Phone: 05-29-2022 08:38-0400 Respiratory rate 15 /min [facility] Work Phone: 05-29-2022 08:38-0400 SaO2% (BldA) [Mass fraction] 94 % [facility] Work Phone: 05-29-2022 08:38-0400 Systolic blood pressure 108 mm[Hg] [facility] Work Phone: 05-29-2022 07:18-0400 Body height 180.34 cm [facility] Work Phone: 05-29-2022 07:18-0400 Body mass index (BMI) [Ratio] 31.4 kg/m2 [facility] Work Phone: 05-29-2022 07:18-0400 Body weight 102 kg [facility] Work Phone: 05-29-2022 07:18-0400 Inhaled oxygen flow rate 6 L/min [facility] Work Phone: 05-09-2022 00:38-0400 Body weight 102.51 kg [facility] Work Phone: 04-29-2022 18:35-0400 Diastolic blood pressure 88 mm[Hg] [facility] Work Phone: 04-29-2022 18:35-0400 Heart rate 82 /min [facility] Work Phone: 04-29-2022 18:35-0400 Respiratory rate 25 /min [facility] Work Phone: 04-29-2022 18:35-0400 SaO2% (BldA) [Mass fraction] 98 % [facility] Work Phone: 04-29-2022 18:35-0400 Systolic blood pressure 144 mm[Hg] [facility] Work Phone: 04-29-2022 16:11-0400 Inhaled oxygen flow rate 3 L/min [facility] Work Phone: 04-29-2022 15:05-0400 Body height 182.88 cm [facility] Work Phone: 04-29-2022 15:05-0400 Body mass index (BMI) [Ratio] 29.8 kg/m2 [facility] Work Phone: 04-29-2022 15:05-0400 Body temperature 97.3 [degF] [facility] Work Phone: 04-29-2022 15:05-0400 Body weight 99.79 kg [facility] Work Phone: 04-22-2022 08:14-0400 Body weight 102.51 kg [facility] Work Phone: 03-25-2022 11:51-0400 Body temperature 98.2 [degF] [facility] Work Phone: 03-25-2022 11:51-0400 Diastolic blood pressure 96 mm[Hg] [facility] Work Phone: 03-25-2022 11:51-0400 Heart rate 60 /min [facility] Work Phone: 03-25-2022 11:51-0400 Respiratory rate 18 /min [facility] Work Phone: 03-25-2022 11:51-0400 SaO2% (BldA) [Mass fraction] 95 % [facility] Work Phone: 03-25-2022 11:51-0400 Systolic blood pressure 124 mm[Hg] [facility] Work Phone: 03-25-2022 11:36-0400 Inhaled oxygen flow rate 2 L/min [facility] Work Phone: 03-25-2022 09:41-0400 Body height 180.34 cm [facility] Work Phone: 03-25-2022 09:41-0400 Body mass index (BMI) [Ratio] 30.4 kg/m2 [facility] Work Phone: 03-25-2022 09:41-0400 Body weight 99.06 kg [facility] Work Phone: 03-24-2022 08:46-0400 Body weight 102.28 kg [facility] Work Phone: 03-24-2022 08:46-0400 Body weight 102.28 kg [facility] Work Phone: 02-21-2022 08:55-0400 Body mass index (BMI) [Ratio] 30.1 kg/m2 [facility] Work Phone: 02-21-2022 08:55-0400 Body temperature 98.2 [degF] [facility] Work Phone: 02-21-2022 08:55-0400 Body weight 98.06 kg [facility] Work Phone: 02-21-2022 08:55-0400 Diastolic blood pressure 89 mm[Hg] [facility] Work Phone: 02-21-2022 08:55-0400 Heart rate 61 /min [facility] Work Phone: 02-21-2022 08:55-0400 Respiratory rate 18 /min [facility] Work Phone: 02-21-2022 08:55-0400 SaO2% (BldA) [Mass fraction] 94 % [facility] Work Phone: 02-21-2022 08:55-0400 Systolic blood pressure 147 mm[Hg] [facility] Work Phone: 02-21-2022 08:55-0400 Body height 180.34 cm [facility] Work Phone: 02-21-2022 08:55-0400 Body mass index (BMI) [Ratio] 30.1 kg/m2 [facility] Work Phone: 02-21-2022 08:55-0400 Body temperature 98.2 [degF] [facility] Work Phone: 02-21-2022 08:55-0400 Body weight 98.06 kg [facility] Work Phone: 02-21-2022 08:55-0400 Diastolic blood pressure 89 mm[Hg] [facility] Work Phone: 02-21-2022 08:55-0400 Heart rate 61 /min [facility] Work Phone: 02-21-2022 08:55-0400 Respiratory rate 18 /min [facility] Work Phone: 02-21-2022 08:55-0400 SaO2% (BldA) [Mass fraction] 94 % [facility] Work Phone: 02-21-2022 08:55-0400 Systolic blood pressure 147 mm[Hg] [facility] Work Phone: 02-20-2022 13:30-0400 Body mass index (BMI) [Ratio] 30.1 kg/m2 [facility] Work Phone: 02-20-2022 13:30-0400 Body weight 97.97 kg [facility] Work Phone: 02-20-2022 13:30-0400 Diastolic blood pressure 70 mm[Hg] [facility] Work Phone: 02-20-2022 13:30-0400 Heart rate 90 /min [facility] Work Phone: 02-20-2022 13:30-0400 Inhaled oxygen flow rate 2 L/min [facility] Work Phone: 02-20-2022 13:30-0400 Respiratory rate 18 /min [facility] Work Phone: 02-20-2022 13:30-0400 SaO2% (BldA) [Mass fraction] 96 % [facility] Work Phone: 02-20-2022 13:30-0400 Systolic blood pressure 121 mm[Hg] [facility] Work Phone: 02-20-2022 13:30-0400 Body mass index (BMI) [Ratio] 30.1 kg/m2 [facility] Work Phone: 02-20-2022 13:30-0400 Body weight 97.97 kg [facility] Work Phone: 02-20-2022 13:30-0400 Diastolic blood pressure 70 mm[Hg] [facility] Work Phone: 02-20-2022 13:30-0400 Heart rate 90 /min [facility] Work Phone: 02-20-2022 13:30-0400 Respiratory rate 18 /min [facility] Work Phone: 02-20-2022 13:30-0400 SaO2% (BldA) [Mass fraction] 96 % [facility] Work Phone: 02-20-2022 13:30-0400 Systolic blood pressure 121 mm[Hg] [facility] Work Phone: 01-14-2022 00:38-0500 Diastolic blood pressure 80 mm[Hg] [facility] Work Phone: 01-14-2022 00:38-0500 Heart rate 64 /min [facility] Work Phone: 01-14-2022 00:38-0500 Respiratory rate 20 /min [facility] Work Phone: 01-14-2022 00:38-0500 SaO2% (BldA) [Mass fraction] 98 % [facility] Work Phone: 01-14-2022 00:38-0500 Systolic blood pressure 119 mm[Hg] [facility] Work Phone: 01-13-2022 23:38-0500 Diastolic blood pressure 80 mm[Hg] [facility] Work Phone: 01-13-2022 23:38-0500 Heart rate 64 /min [facility] Work Phone: 01-13-2022 23:38-0500 Respiratory rate 20 /min [facility] Work Phone: 01-13-2022 23:38-0500 SaO2% (BldA) [Mass fraction] 98 % [facility] Work Phone: 01-13-2022 23:38-0500 Systolic blood pressure 119 mm[Hg] [facility] Work Phone: 01-13-2022 23:35-0500 Inhaled oxygen concentration 100 % [facility] Work Phone: 01-13-2022 23:00-0500 Body temperature 98.3 [degF] [facility] Work Phone: 01-13-2022 22:49-0500 Inhaled oxygen flow rate 4 L/min [facility] Work Phone: 01-13-2022 22:35-0500 Inhaled oxygen concentration 100 % [facility] Work Phone: 01-13-2022 22:03-0500 Body mass index (BMI) [Ratio] 25.7 kg/m2 [facility] Work Phone: 01-13-2022 22:03-0500 Body weight 83.91 kg [facility] Work Phone: 01-13-2022 21:03-0500 Body mass index (BMI) [Ratio] 25.7 kg/m2 [facility] Work Phone: 01-13-2022 21:03-0500 Body weight 83.91 kg [facility] Work Phone: 12-23-2021 11:28-0500 Heart rate 65 /min [facility] Work Phone: 12-23-2021 11:28-0500 SaO2% (BldA) [Mass fraction] 95 % [facility] Work Phone: 12-23-2021 11:19-0500 Respiratory rate 20 /min [facility] Work Phone: 12-23-2021 11:03-0500 Diastolic blood pressure 81 mm[Hg] [facility] Work Phone: 12-23-2021 11:03-0500 Systolic blood pressure 150 mm[Hg] [facility] Work Phone: 12-23-2021 10:00-0500 Body temperature 97.1 [degF] [facility] Work Phone: 12-23-2021 07:41-0500 Body mass index (BMI) [Ratio] 32.1 kg/m2 [facility] Work Phone: 12-23-2021 07:41-0500 Body weight 98.88 kg [facility] Work Phone: Encounters Encounter Date Encounter Type Care Provider Facility Start: 08-10-2025 End: 08-10-2025 [facility] Start: 08-10-2025 End: 08-10-2025 Patient encounter procedure Tash Pope NP -[facility] Work Phone: Start: 08-10-2025 End: 08-10-2025 ambulatory [facility] Facility:[facility] Start: 06-26-2025 End: 06-26-2025 ambulatory [facility] -Laboratory Start: 06-26-2025 End: 06-26-[address] Kwadwo Jaime MD -Laboratory Work Phone: Start: 06-26-2025 End: 06-26-2025 ambulatory [facility] Facility:[facility] Start: 05-30-2025 End: 05-30-2025 Emergency department patient visit [facility] -Emergency Department Work Phone: Start: 03-01-2025 End: 03-01-2025 Patient encounter procedure Rosa KHAN -[facility] Work Phone: Start: 03-01-2025 End: 03-01-2025 ambulatory [facility] Facility:[facility] Start: 01-19-2025 Non-patient / Non-visit Dr. Karlos lopez MD -[facility] Start: 01-19-2025 End: 01-19-2025 ambulatory [facility] Work Phone: Start: 01-19-2025 End: 01-19-[address] Karlos Osorio MD -Cardiovascular Services Work Phone: Start: 01-19-2025 End: 01-19-2025 ambulatory Karlos Osorio Facility:[facility] Start: 12-24-2024 Non-patient / Non-visit Dr. Tanya Caro MD -[facility] Work Phone: Start: 12-23-2024 Non-patient / Non-visit Dr. Tanya Caro MD -[facility] Work Phone: Start: 12-23-2024 Non-patient / Non-visit Dr. Arnie Rojas MD -[facility] Start: 12-22-2024 Non-patient / Non-visit Dr. Arnie Rojas MD [facility] Start: 12-21-2024 Non-patient / Non-visit Dr. Tanya Caro MD [facility] Work Phone: Start: 12-21-2024 ambulatory Lorenzo Anderson [place]: [facility] Start: 12-21-2024 Non-patient / Non-visit Dr. Emma PRATHER [facility] Start: 12-21-2024 Non-patient / Non-visit Dr. Delmar Vela MD -[facility] Start: 12-21-2024 ambulatory Allen Caro Fac ility:[facility] Start: 12-21-2024 End: 12-24-2024 Evaluation and management of inpatient Dr. Allen Caro MD -Progressive Care Unit Work Phone: Start: 11-25-2024 End: 11-26-[address] KWADWO JAIME MD Facility:[facility] Start: 11-25-2024 End: 11-26-[address] KWADWO JAIME MD [facility] Start: 11-11-2024 End: 11-11-[address] KWADWO JAIME MD [facility] Start: 11-11-2024 End: 11-11-[address] KWADWO JAIME MD Facility:[facility] Start: 10-07-2024 End: 10-07-2024 Emergency department patient visit Dr. Nikolai Barr DO -Emergency Department Work Phone: Start: 10-05-2024 Non-patient / Non-visit Dr. Annette Holden MD -[facility] Work Phone: Start: 10-04-2024 Non-patient / Non-visit Dr. Annette Holden MD -[facility] Work Phone: Start: 10-04-2024 Encounter for other preprocedural examination Kwadwo Jaime [facility] Start: 10-03-2024 ambulatory Triny Trinidad Facility [facility] Start: 10-03-2024 End: 10-05-2024 Evaluation and management of inpatient Dr. Annette Holden MD -Progressive Care Unit Work Phone: Start: 09-21-2024 ambulatory Kwadwo Jaime Faci lity:[facility] Start: 09-05-2024 End: 09-05-2024 ambulatory Kwadwo Jaime Facility:[facility] Start: 07-01-2023 Non-patient / Non-visit [facility] Start: 07-01-2023 End: 07-01-2023 Admission to same day surgery center [facility] Start: 07-01-2023 End: 07-01-2023 ambulatory [facility] Work Phone: Start: 06-15-2023 End: 06-15-2023 Non-patient / Non-visit [facility] Work Phone: Start: 06-10-2023 End: 06-10-2023 Patient encounter procedure [facility] Work Phone: Start: 05-18-2023 End: 05-18-2023 Patient encounter procedure [facility] Work Phone: Start: 05-11-2023 End: 05-11-2023 Patient encounter procedure [facility] Work Phone: Start: 04-29-2023 End: 04-29-2023 Patient encounter procedure [facility] Work Phone: Start: 11-05-2022 End: 11-05-2022 Emergency department patient visit [facility]Emergency Department Start: 10-30-2022 End: 10-30-2022 Emergency department patient visit [facility]Emergency Department Start: 10-13-2022 End: 10-13-2022 Emergency department patient visit [facility]Emergency Department Start: 09-23-2022 Non-patient / Non-visit [facility] Start: 09-23-2022 End: 09-23-2022 Admission to same day surgery center [facility]-Endoscopy Start: 09-23-2022 End: 09-23-2022 ambulatory [facility] Work Phone: Start: 08-21-2022 End: 08-21-2022 Patient encounter procedure [facility] Start: 07-28-2022 End: 07-28-2022 Patient encounter procedure [facility] Start: 07-22-2022 Non-patient / Non-visit [facility] Start: 05-31-2022 [facility] Start: 05-31-2022 Non-patient / Non-visit [facility] Start: 05-30-2022 Non-patient / Non-visit [facility] Start: 05-29-2022 Non-patient / Non-visit [facility] Start: 05-29-2022 End: 05-31-2022 Evaluation and management of inpatient [facility]Intensive Care Unit Start: 05-26-2022 End: 06-08-2022 Discharged Recurring [facility]Pulmonary Rehab Start: 05-26-2022 Registered Recurring [facility] Start: 05-07-2022 End: 05-08-2022 Discharged Recurring [facility] Start: 04-29-2022 End: 04-29-2022 Emergency department patient visit [facility]Emergency Department Start: 04-28-2022 Registered Recurring [facility] Start: 04-04-2022 End: 04-08-2022 Discharged Recurring [facility] Start: 03-25-2022 Non-patient / Non-visit [facility] Start: 03-25-2022 End: 03-25-2022 Admission to same day surgery center [facility]Endoscopy Start: 03-24-2022 Registered Recurring [facility] Start: 03-07-2022 End: 03-08-2022 Discharged Recurring [facility] Start: 02-28-2022 Registered Recurring [facility] Start: 02-21-2022 End: 02-21-2022 Patient encounter procedure [facility] Start: 02-20-2022 End: 02-20-2022 Patient encounter procedure [facility] Start: 02-20-2022 End: 02-20-2022 Patient encounter procedure [facility] Start: 01-13-2022 End: 01-14-2022 Emergency department patient visit [facility]Emergency Department Start: 12-23-2021 End: 12-23-2021 Emergency department patient visit [facility]Emergency Department Procedures Date Procedure Procedure Detail Performing Clinician Start: 08-10-2025 MRI of brain with contrast [facility] Start: 06-26-2025 Assay of prostate sp ecific antigen total [facility] Comment on above: This test was perfor med using the [employer] tPSA method. Measured values of a patient sample can vary depending on the testing procedure used. PSA values determined on patient samples by different testing procedures cannot be used interchangeably. If there is a change in PSA assays while monitoring therapy, sequential testing should be performed to confirm baseline values. Start: 06-26-2025 Prostate specific an tigen measurement [facility] Comment on above: This test was perfor med using the [employer] tPSA method. Measured values of a patient sample can vary depending on the testing procedure used. PSA values determined on patient samples by different testing procedures cannot be used interchangeably. If there is a change in PSA assays while monitoring therapy, sequential testing should be performed to confirm baseline values. Start: 05-30-2025 Estimated creatinine clearance [facility] Start: 05-30-2025 CT of head without contrast [facility] Start: 12-23-2024 Urine culture [facility] Start: 12-21-2024 Plain chest X-ray [facility] Start: 12-21-2024 Plain X-ray of clavicle [facility] Start: 12-21-2024 Plain X-ray of shoulder [facility] Start: 12-21-2024 CT cervical spine wi thout contrast [facility] Start: 12-21-2024 CT of head without contrast [facility] Start: 10-07-2024 [facility] Start: 10-07-2024 Computed tomography of abdomen and pelvis with intravenous contrast [facility] Start: 10-04-2024 Bacteria identificat ion test [facility] Start: 10-04-2024 Gram stain microscopy [facility] Start: 10-03-2024 Computed tomography of abdomen and pelvis with intravenous contrast [facility] Start: 10-03-2024 Blood [facility] Start: 10-03-2024 Nucleic acid [facility] Start: 10-03-2024 SARS-CoV-2, Influenz a & RSV (PCR) [facility] Start: 10-03-2024 [facility] Start: 10-03-2024 X-ray of chest, PA a nd lateral views [facility] Start: 07-01-2023 [facility] Start: 09-23-2022 [facility] Start: 05-29-2022 [facility] Start: 04-29-2022 [facility] Start: 03-25-2022 [facility] Start: 02-20-2022 Computed tomography of abdomen and pelvis with contrast [facility] Start: 01-14-2022 Urine culture [facility] Start: 01-13-2022 Plain [facility] Start: 01-13-2022 CT of thorax, abdome n and pelvis with contrast [facility] Start: 01-13-2022 Bacteria identified in Blood by Culture [facility] Start: 01-13-2022 End: 01-13-2022 Viral antigen assay [facility] Start: 12-23-2021 SARS-CoV-2 Antigen (Rapid) [facility] Start: 12-23-2021 Plain chest X-ray [facility] Adipose tissue (body structure) DR KWADWO JAIME MD Comment on above: removed from back Appendectomy DR KWADWO JAIME MD Bacteria identified in Blood by Culture [facility] Investigation of transfusion reaction [facility] Respiratory microbia l culture [facility] Thumb structure (bod y structure) DR KWADWO JAIME MD Comment on above: right, bone removed Urine culture [facility] of Treatment Date Care Activity Detail Author Start: 05-30-2025 [facility] Start: 12-24-2024 Patient discharge [facility] Start: 12-23-2024 Oxygen therapy [facility] Start: 12-22-2024 Following clinical pathway protocol [facility] Start: 12-22-2024 [facility] Start: 12-21-2024 Following clinical pathway protocol [facility] Start: 12-21-2024 Ambulation without limitation [facility] Start: 12-21-2024 Assessment of risk of venous thromboembolism [facility] Start: 12-21-2024 Care regimes management [facility] Start: 12-21-2024 Insertion of catheter into peripheral vein [facility] Start: 12-21-2024 Measuring intake and output [facility] Start: 12-21-2024 Notification of physician [facility] Start: 12-21-2024 Providing care according to standard [facility] Start: 12-21-2024 Referral to occupational therapist [facility] Start: 12-21-2024 Referral to service [facility] Start: 12-21-2024 End: 12-21-2024 [facility] Start: 12-21-2024 Admission procedure [facility] Start: 12-21-2024 Referral to clinical data management director [facility] Start: 12-21-2024 Inhalation therapy procedure [facility] Start: 12-21-2024 Patient referral to dietitian [facility] Start: 10-07-2024 [facility] Start: 10-05-2024 Patient discharge [facility] Start: 10-04-2024 [facility] Start: 10-03-2024 Assessment of risk of venous thromboembolism [facility] Start: 10-03-2024 Care regimes management [facility] Start: 10-03-2024 Continuous positive airway pressure ventilation treatment [facility] Start: 10-03-2024 Fall prevention [facility] Start: 10-03-2024 Incentive spirometry [facility] Start: 10-03-2024 Insertion of catheter into peripheral vein [facility] Start: 10-03-2024 Introduction of urinary catheter [facility] Start: 10-03-2024 Measuring intake and output [facility] Start: 10-03-2024 Notification of physician [facility] Start: 10-03-2024 Oxygen therapy [facility] Start: 10-03-2024 Providing care according to standard [facility] Start: 10-03-2024 Provision of activity privileges [facility] Start: 10-03-2024 Referral to occupational therapist [facility] Start: 10-03-2024 Referral to service [facility] Start: 10-03-2024 End: 10-03-2024 [facility] Start: 10-03-2024 Following clinical pathway protocol [facility] Start: 10-03-2024 Admission procedure [facility] Start: 10-03-2024 Patient referral to dietitian [facility] Start: 07-01-2023 Patient discharge [facility] Start: 09-23-2022 Colonoscopy w/biopsy single/multiple COLONOSCOPY AND BIOPSY [facility] Work Phone: Start: 09-23-2022 Patient discharge [facility] Work Phone: Start: 06-01-2022 [facility] Work Phone: Start: 05-31-2022 Patient discharge [facility] Work Phone: Start: 05-31-2022 Care planning and problem solving actions [facility] Work Phone: Start: 05-31-2022 Application of intermittent pneumatic compression device [facility] Work Phone: Start: 05-31-2022 Continuous pulse oximetry [facility] Work Phone: Start: 05-31-2022 Dual pressure spontaneous ventilation support [facility] Work Phone: Start: 05-29-2022 Care planning and problem solving actions [facility] Work Phone: Start: 05-29-2022 End: 05-29-2022 Following clinical pathway protocol [facility] Work Phone: Start: 05-29-2022 Care regimes management [facility] Work Phone: Start: 05-29-2022 Notification of physician [facility] Work Phone: Start: 05-29-2022 [facility] Work Phone: Start: 05-29-2022 Ambulation without limitation [facility] Work Phone: Start: 05-29-2022 Assessment of risk of venous thromboembolism [facility] Work Phone: Start: 05-29-2022 Catheterization of vein [facility] Work Phone: Start: 05-29-2022 Elevation of head of bed [facility] Work Phone: Start: 05-29-2022 Incentive spirometry [facility] Work Phone: Start: 05-29-2022 Insertion of catheter into peripheral vein [facility] Work Phone: Start: 05-29-2022 Measuring intake and output [facility] Work Phone: Start: 05-29-2022 Oxygen therapy [facility] Work Phone: Start: 05-29-2022 Providing care according to standard [facility] Work Phone: Start: 05-29-2022 Vital signs measurements [facility] Work Phone: Start: 05-29-2022 [facility] Work Phone: Start: 05-29-2022 Verification routine [facility] Work Phone: Start: 05-29-2022 Bacteria identified in Sputum by Culture [facility] Work Phone: Start: 05-29-2022 Legionella pneumophila Ag [Presence] in Urine [facility] Work Phone: Start: 05-29-2022 Streptococcus pneumoniae antigen assay [facility] Work Phone: Start: 05-29-2022 Admission procedure [facility] Work Phone: Start: 05-29-2022 End: 05-29-2022 Blood culture [facility] Work Phone: Start: 05-29-2022 Continuous pulse oximetry [facility] Work Phone: Start: 05-29-2022 Dual pressure spontaneous ventilation support [facility] Work Phone: Start: 05-29-2022 End: 05-29-2022 [facility] Work Phone: Start: 05-29-2022 Inhalation therapy procedure [facility] Work Phone: Start: 03-25-2022 Colonoscopy w/biopsy single/multiple COLONOSCOPY AND BIOPSY [facility] Work Phone: Start: 03-25-2022 Egd transoral biopsy single/multiple EGD BIOPSY SINGLE/MULTIPLE [facility] Work Phone: Start: 02-21-2022 [facility] Work Phone: Start: 02-21-2022 Patient referral to dietitian [facility] Work Phone: Start: 01-13-2022 [facility] Work Phone: Alanine aminotransfe rase [Enzymatic activity/volume] in Serum or Plasma [facility] Work Phone: Albumin [Mass/volume ] in Serum or Plasma [facility] Work Phone: Alkaline phosphatase [Enzymatic activity/volume] in Serum or Plasma [facility] Work Phone: Anion gap measurement [facility] Work Phone: Aspartate aminotrans ferase [Enzymatic activity/volume] in Serum or Plasma [facility] Work Phone: Bacteria identified in Blood by Culture Blood Culture [facility] Work Phone: Bilirubin, total measurement [facility] Work Phone: Blood culture [facility] Work Phone: BUN/Creatinine ratio [facility] Work Phone: Calcium [Mass/volume ] in Serum or Plasma [facility] Work Phone: Carbon dioxide, tota l [Moles/volume] in Serum or Plasma [facility] Work Phone: Chloride [Moles/volu me] in Serum or Plasma [facility] Work Phone: Creatinine [Moles/vo lume] in Serum or Plasma [facility] Work Phone: Glucose [Mass/volume ] in Serum or Plasma [facility] Work Phone: Hematocrit [Volume Fraction] of Blood [facility] Work Phone: Hemoglobin [Mass/vol ume] in Blood [facility] Work Phone: Leukocytes [#/volume ] in Blood [facility] Work Phone: Mean corpuscular hem oglobin concentration determination [facility] Work Phone: Mean corpuscular hem oglobin determination [facility] Work Phone: Measurement of renal function [facility] Work Phone: Neutrophil count [facility] Work Phone: Neutrophil percent differential count [facility] Work Phone: Patient Education [facility] Work Phone: Patient referral [facility] Work Phone: Platelets [#/volume] in Blood [facility] Work Phone: Potassium [Moles/vol ume] in Serum or Plasma [facility] Work Phone: Red blood cell count [facility] Work Phone: Red cell distributio n width determination [facility] Work Phone: Respiratory microbia l culture Respiratory Culture [facility] Work Phone: Sodium [Moles/volume ] in Serum or Plasma [facility] Work Phone: Total protein measurement [facility] Work Phone: Urea nitrogen [Mass/ volume] in Serum or Plasma [facility] Work Phone: Immunizations Immunization Date Immunization Notes Care Provider [facility] 10-04-2024 influenza virus vacc ine, unspecified formulation DR KWADWO JAIME MD [facility] 10-04-2024 influenza, high dose seasonal, preservative-free [facility] 2023 Influenza High-Dose Quadrivalent [facility] 2023 influenza virus vacc ine, unspecified formulation DR KWADWO JAIME MD [facility] 2023 Pfizer Covid-19 (Comirnaty) [facility] 2023 SARS-CoV-2 (COVID-19 ) [id number] DR KWADWO JAIME MD [facility] 01-31-2021 Covid (Pfizer) [facility] 01-10-2021 Covid (Pfizer) [facility] Comment on above: Result Comment: 2024: [id number] 12-15-[address] KWADWO JAIME MD [facility] 10-13-[address] KWADWO JAIME MD [facility] 10-14-2017 pneumococcal polysaccharide vaccine, [address] KWADWO JAIME MD [facility] 10-10-2016 zoster vaccine, live DR KWADWO JAIME MD [facility] 03-27-2015 pneumococcal conjuga te vaccine, [address] KWADWO JAIME MD [facility] Payers Date Payer Category Payer Unknown [id number] 2024 Unknown [id number] 2024 Unknown [id number] 2024 Self-pay [id number] 2024 Unknown [id number] 1950 Unknown [id number] 2.16.8 40.1.032124.3.579.2.627 1950 Unknown [id number] 2.16.8 40.1.826050.3.579.2.627 Medicare [id number] Unknown [id number] 2.16.8 40.1.065692.3.579.2.462 Unknown [id number] 2.16.8 40.1.496431.3.579.2.462 Unknown [id number] 2.16.8 40.1.036692.3.579.2.462 Unknown [id number] 2.16.8 40.1.947090.3.579.2.462 Unknown [id number] 2.16.8 40.1.249871.3.579.2.462 Unknown [id number] 2.16.8 40.1.696428.3.579.2.462 Unknown [id number] 2.16.8 40.1.507787.3.579.2.462 Unknown [id number] 2.16.8 40.1.706915.3.579.2.462 Unknown [id number] 2.16.8 40.1.616869.3.579.2.462 Unknown [id number] 2.16.8 40.1.541451.3.579.2.462 Unknown [id number] 2.16.8 40.1.853507.3.579.2.462 Unknown [id number] 2.16.8 40.1.110395.3.579.2.462 Unknown [id number] 2.16.8 40.1.395605.3.579.2.462 Unknown [id number] 2.16.8 40.1.475283.3.579.2.462 Unknown [id number] 2.16.8 40.1.431282.3.579.2.462 Unknown [id number] 2.16.8 40.1.134840.3.579.2.462 Unknown [id number] 2.16.8 40.1.335842.3.579.2.462 Unknown [id number] 2.16.8 40.1.820187.3.579.2.462 Unknown [id number] 2.16.8 40.1.726562.3.579.2.462 Unknown [id number] 2.16.8 40.1.456960.3.579.2.462 Unknown [id number] 2.16.8 40.1.773013.3.579.2.462 Unknown [id number] 2.16.8 40.1.868672.3.579.2.462 Social History Date Type Detail Facility Start: 02-21-2022 End: 06-12-2023 Tobacco smoking status IAIS Unknown if ever smoked [facility] Start: 08-13-2015 None [facility] Start: 08-13-2015 Cigarettes [facility] Start: 1950 Sex Assigned At Male [facility] Start: 11-11-2024 Tobacco smoking status Never s moked tobacco (finding) [facility] Sexual Orientation [facility] ostal [facility] Start: 10-20-2024 End: 01-29-2025 Sex Male (finding) [facility] Start: 12-21-2024 End: 05-30-2025 Tobacco smoking status NHIS Ex-smoker (finding) [facility] Sex Male [facility] Medical Equipment Procedure Code Equipment Code Equipment Origin al Text Equipment Identifier Dates Blood Sugar Diagnostic (Accu-Chek Guide Test Strips) strip Start: 06-28-2024 Lancets misc Start: 06-28-2024 Blood Sugar Diagnostic (Accu-Chek Guide Test Strips) strip Start: 06-28-2024 Lancets misc Start: 06-28-2024 Blood Sugar Diagnostic (Accu-Chek Guide Test Strips) strip Start: 06-28-2024 Lancets misc Start: 06-28-2024 Blood Sugar Diagnostic (Accu-Chek Guide Test Strips) strip Start: 06-28-2024 Lancets [facility] Start: 06-28-2024 Goals Date Patient Goal Desired Activity /State Functional Status Date Assessment Result Facility 12-24-2024 Functional status Ambulates [facility] Work Phone: 11-26-2024 Functional Status Standard Safety ID band on [facility] 11-26-2024 Functional Status Awake [facility] 11-26-2024 Functional Status bilateral knee high ying lied/on [facility] 11-26-2024 Functional Status Nurse Safety C carrie q2hrs Performed 7pm-7am [facility] 11-26-2024 Functional Status [facility] 11-25-2024 Functional Status Room check performed [facility] 11-25-2024 Functional Status [facility] 11-25-2024 Functional Status [facility] 11-25-2024 Functional Status Patient Identi fied Identification band, Verbal [facility] 11-25-2024 Functional Status Maintained, More than 8 hours [facility] 11-11-2024 Functional Status Sensory Defici ts Hearing deficit, left ear, Hearing deficit, right ear [facility] 10-05-2024 Functional status Ambulates;Milton r;Bathroom Privilege [facility] Work Phone: 05-31-2022 Functional status Ambulates;Bedrest [facility] Work Phone: 05-30-2022 Functional status Tolerates Activity Fair [facility] Work Phone: Mental Status Date Assessment Result Facility 05-30-2025 Cognitive function Level Of Cons ciousness Awake;Alert;Appropriate;Follow s Commands [facility] Work Phone: 12-24-2024 Cognitive function Voice/Name [facility] Work Phone: 11-26-2024 Mental Status Orientation Oriented x 4 [facility] 11-25-2024 Mental Status [facility] 11-25-2024 Mental Status [facility] 10-05-2024 Cognitive function Voice/Name [facility] Work Phone: 07-01-2023 Cognitive function Voice/Name [facility] Work Phone: 09-23-2022 Cognitive function Voice/Name [facility] Work Phone: 05-31-2022 Cognitive function Voice/Name [facility] Work Phone: 03-25-2022 Cognitive function Level Of Consciousness Sedated [facility] Work Phone: 03-25-2022 Cognitive function Voice/Name [facility] Work Phone: Clinical Notes 10-13-2022 to 05-30-2025 Note Date & Type Note Facility 05-30-2025 Discharge summary [facility] 05-30-2025 Radiology Diagnostic study note [facility] [address], [place] [address] Brain/Head without Contrast MR#: [id number] Acct: [id number] Name: NAUN GARCÍA Rep #: [id number] : 1950 M 74 From: [facility] Collier MD PCP: [facility] Status: [facility] Study:Brain/Head without Contrast Date of Exa m: 05/30/25 Exam# [id number] Ordering Dr: Baron Sotomayor MD EXAM: NONCONTRAST CT SCAN OF THE HEAD CLINICAL HISTORY: Headache, positional COMPARISON: December 21, 2024 TECHNIQUE: Serial axial series through the head were obtained without contrast. 2-D coronaland sagittal reformats were then obtained. FINDINGS: Brain: There is low-density consistent with chronic ischemic change in the deep white matter on the right and left basal ganglia, similar to the prior. There is no acute large territorial infarct, intracranialhemorrhage, midline shift or mass effect. There are atherosclerotic vascular calcifications involving the bilateral carotid siphons. The sella and pineal gland regions appear unremarkable. There is no evidence of cerebellar tonsillar herniation. Ventricles: There is no acute hydrocephalus. Basilar cisterns are patent. Paranasal sinuses: Well-aerated Mastoid air cells: Well-aerated. Calvarium: The bony calvarium is intact. Orbits: The bilateral globes are symmetric, without retrobulbar compressive masslesion or hemorrhage. CT/Brain/Head without Contrast IMPRESSION: There is low-density consistent with chronic ischemic change in the deep white matter on the right and left basal ganglia, similar to the prior. No acute intracranial pathology. Reading Location: [facility] CC: Dr. Facundo Sotomayor MD; [facility] Pool Installer: Signed [facility] 03-01-2025 Evaluation note Diagnosis Onset Date Resolution AAA (abdominal aortic aneurysm) acute March 01 8:48am [facility] Work Phone: 1(502) 775-572902-15-2025 [facility]01-18-2025 Hospital Discharge instructions Patient Education 11/26/2024 10:59:40 Transurethral Resection of the Prostate, Care After Transurethral Resection of the Prostate, Care After This sheet gives you information about how to care for yourself after your procedure. Your health care provider may also give you more specific instructions. If you have problems or questions, contact your health care provider. What can I expect after the procedure? After the procedure, it is common to have: Mild pain in your lower abdomen. Soreness or mild discomfort in your penis from having the catheter inserted during the procedure. A feeling of urgency when you need to urinate. A small amount of blood in your urine. You may notice some small blood clots in your urine. These are normal. Follow these instructions at home: Medicines Take hyqs-jgf-ypqslyo and prescription medicines only as told by your health care provider. If you were prescribed an antibiotic medicine, take it as told by your health care provider. Do notstop taking the antibiotic even if you start to feel better. Ask your health care provider if the medicine prescribed to you: ?Requires you to avoid driving or using heavy machinery. ?Can cause constipation. You may need to take actions to prevent or treat constipation, such as: ?Take uizz-gth-wrdusoi or prescription medicines. ?Eat foods that are high in fiber, such as fresh fruits and vegetables, whole grains, and beans. ?Limit foods that are high in fat and processed sugars, such as fried or sweet foods. Do not drive for 24 hours if you were given a sedative during your procedure. Activity Return to your normal activities as told by your health care provider. Ask your health care provider what activities are safe for you. Do not lift anything that is heavier than 10 lb (4.5 kg), or the limit that you are told, for 3 weeks after the procedure or until your health care provider says that it is safe. Avoid intense physical activity for as long as told by your health care provider. Avoid sitting for a long time without moving. Get up and move around one or more times every few hours. This helps to prevent blood clots. You may increase your physical activity gradually as you start to feel better. Lifestyle Do not drink alcohol for as long as told by your health care provider. This is especially importantif you are taking prescription pain medicines. Do not engage in sexual activity until your health care provider says that you can do this. General instructions Do not take baths, swim, or use a hot tub until your health care provider approves. Drink enough fluid to keep your urine pale yellow. Urinate as soon as you feel the need to. Do not try to hold your urine for long periods of time. If your health care provider approves, you may take a stool softener for 2 3 weeks to prevent you from straining to have a bowel movement. Wear compression stockings as told by your health care provider. These stockings help to prevent blood clots and reduce swelling in your legs. Keep all follow-up visits as told by your health care provider. This is important. Contact a health care provider if you have: Difficulty urinating. A fever. Pain that gets worse or does not improve with medicine. Blood in your urine that does not go away after 1 week of resting and drinking more fluids. Swelling in your penis or testicles. Get help right away if: You are unable to urinate. You are having more blood clots in your urine instead of fewer. You have: ?Large blood clots. ?A lot of blood in your urine. ?Pain in your back or lower abdomen. ?Pain or swelling in your legs. ?Chills and you are shaking. ?Difficulty breathing or shortness of breath. Summary After the procedure, it is common to have a small amount of blood in your urine. Avoid heavy lifting and intense physical activity for as long as told by your health care provider. Urinate as soon as you feel the need to. Do not try to hold your urine for long periods of time. Keep all follow-up visits as told by your health care provider. This is important. This information is not intended to replace advice given to you by your health care provider. Make sure you discuss any questions you have with your health care provider. Document Released: 10/26/2006 Document Revised: 02/15/2020 Document Reviewed: 07/27/2019 [employer] Patient Education 2020 [employer] Follow Up Care 10/20/2024 12:56:14 With:KWADWO JAIME MD, Urology Service Address: [address] [place] [address] [place] [address] [phone] When: Unknown [facility] 01-18-2025 Note Discharge Instructions Thank you for allowing [facility] to assist you with your healthcare needs. The following is importantdischarge information regarding your hospital visit. Your Care Team [facility] Team What to do next Follow Up Appointments Follow Up with KWADWO JAIME MD, Urology Service Where:[address] [place] [address] [place] [address] [phone] FOLLOW UP THURSDAY PLANNED The Following Treatments Have Been Ordered for You Discharge Labs No qualifying data available. Discharge Radiology No qualifying data available. Other Therapies No qualifying data available. Post Acute Orders No qualifying data available. Allergies No Known Medication Allergies Medications Please ask your primary doctor or pharmacist before taking any other medication not listed, including over the counter drugs, herbal medications, vitamins and or supplements as they may interact withyour home medications. What How Much When Instructions Last Dose New ciprofloxacin (Cipro 500 mg oral tablet) 1 tab(s) by mouth Every 12 hours Duration: 7 Days Pickup at [facility]/pharmacy #[id number] Changed insulin lispro (HumaLOG) (Insulin Lispro KwikPen 100 units/ mL injectable solution) 16 unit(s) PLEASE SEE ATTACHED FOR DETAILED DIRECTIONS PT TAKES AM/ PM 8AM Unchanged albuterol-ipratropium (albuterol-ipratropium 2.5 mg-0.5 mg/ 3 mL inhalation solution) INHALE 3 ML VIA NEBULIZER EVERY 6 HOURS FOR 14 DAYS Unchanged amLODIPine (amLODIPine 10 mg oral tablet) 1 tab(s) by mouth Once a day 8AM Unchanged atorvastatin (atorvastatin 80 mg oral tablet) 1 tab(s) by mouth Every day 11/25/24 Unchanged carvedilol (carvedilol 3.125 mg oral tablet) 1 tab(s) by mouth Two (2) times a day 8AM Unchanged glipiZIDE (glipiZIDE 10 mg oral tablet) 1 tab(s) by mouth Two (2) times daily before meals 8AM Unchanged multivitamin with minerals (Alive Men's Complete Multivitamin oral tablet) by mouth Once a day Unchanged nystatin topical (Klayesta 100,000 units/ g topical powder) APPLY TWICE A DAY FOR 14 DAYS CLEANSE AFFECTED SKIN WITH SOAP/ WATER, PAT DRY AND THEN APPLY POWDER Unchanged pantoprazole (pantoprazole 20 mg oral enteric coated tablet) 1 tab(s) by mouth Once a day Unchanged predniSONE (Deltasone 20mg tab (TAPER)) As needed for Rash TAKE 2 TABS (2 X 20 MG) ORALLY DAILY Unchanged tamsulosin (tamsulosin 0.4 mg oral capsule) 1 cap by mouth Once a day 8AM Pharmacy Information [facility]/pharmacy #[id number]: [address], [place] [id number] [phone] What When Comments Stop Taking clopidogrel (clopidogrel 75 mg oral tablet) TAKE 1 TABLET BY MOUTH EVERY DAY Please take this list to your next doctor s visit. Bring all medications you take, including over the counter medications, herbals and other supplements with you to your doctor s visit. Patients and families are reminded to discard old lists and to update any records with all medication providers or retail pharmacies. Education Materials Transurethral Resection of the Prostate, Care After This sheet gives you information about how to care for yourself after your procedure. Your health care provider may also give you more specific instructions. If you have problems or questions, contact your health care provider. What can I expect after the procedure? After the procedure, it is common to have: Mild pain in your lower abdomen. Soreness or mild discomfort in your penis from having the catheter inserted during the procedure. A feeling of urgency when you need to urinate. A small amount of blood in your urine. You may notice some small blood clots in your urine. These are normal. Follow these instructions at home: Medicines Take pwto-ntv-uznywjf and prescription medicines only as told by your health care provider. If you were prescribed an antibiotic medicine, take it as told by your health care provider. Do notstop taking the antibiotic even if you start to feel better. Ask your health care provider if the medicine prescribed to you: ? Requires you to avoid driving or using heavy machinery. ? Can cause constipation. You may need to take actions to prevent or treat constipation, such as: ? Take kjbf-hli-bnlehgc or prescription medicines. ? Eat foods that are high in fiber, such as fresh fruits and vegetables, whole grains, and beans. ? Limit foods that are high in fat and processed sugars, such as fried or sweet foods. Do not drive for 24 hours if you were given a sedative during your procedure. Activity Return to your normal activities as told by your health care provider. Ask your health care provider what activities are safe for you. Do not lift anything that is heavier than 10 lb (4.5 kg), or the limit that you are told, for 3 weeks after the procedure or until your health care provider says that it is safe. Avoid intense physical activity for as long as told by your health care provider. Avoid sitting for a long time without moving. Get up and move around one or more times every few hours. This helps to prevent blood clots. You may increase your physical activity gradually as you start to feel better. Lifestyle Do not drink alcohol for as long as told by your health care provider. This is especially importantif you are taking prescription pain medicines. Do not engage in sexual activity until your health care provider says that you can do this. General instructions Do not take baths, swim, or use a hot tub until your health care provider approves. Drink enough fluid to keep your urine pale yellow. Urinate as soon as you feel the need to. Do not try to hold your urine for long periods of time. If your health care provider approves, you may take a stool softener for 2 3 weeks to prevent you from straining to have a bowel movement. Wear compression stockings as told by your health care provider. These stockings help to prevent blood clots and reduce swelling in your legs. Keep all follow-up visits as told by your health care provider. This is important. Contact a health care provider if you have: Difficulty urinating. A fever. Pain that gets worse or does not improve with medicine. Blood in your urine that does not go away after 1 week of resting and drinking more fluids. Swelling in your penis or testicles. Get help right away if: You are unable to urinate. You are having more blood clots in your urine instead of fewer. You have: ? Large blood clots. ? A lot of blood in your urine. ? Pain in your back or lower abdomen. ? Pain or swelling in your legs. ? Chills and you are shaking. ? Difficulty breathing or shortness of breath. Summary After the procedure, it is common to have a small amount of blood in your urine. Avoid heavy lifting and intense physical activity for as long as told by your health care provider. Urinate as soon as you feel the need to. Do not try to hold your urine for long periods of time. Keep all follow-up visits as told by your health care provider. This is important. This information is not intended to replace advice given to you by your health care provider. Make sure you discuss any questions you have with your health care provider. Document Released: 10/26/2006 Document Revised: 02/15/2020 Document Reviewed: 07/27/2019 [employer] Patient Education 2020 [employer] Additional Information VACCINATE! IT SAVES LIVES! Members of the community who have not yet received the COVID-19 vaccine and would like to receive it can visit one of [facility] vaccine clinics. There are many vaccine clinic locations within the [facility]. For locations and available times, please visit [email or web address].[place].gov/. It is important to note that some COVID mobile vaccine clinics are held outdoors and may be canceled in rainy or stormy conditions. To learn more about pediatric vaccinations (ages 5-11), we invite you to visit the [facility] webpage. https://www.[email or web address]/pages/[email or web address]-Fppli-Bqjbxgqnzbg-Vubmmdvjkg-Lekzp-Ref stions.htmlTo learn more about the COVID-19 vaccine, we invite you to visit the CDC website for a list of frequently asked questions.https://www.cdc.gov/coronavirus/2019-ncov/vaccines/faq.html [facility] Patient Portal Access Instructions: Stay connected with your healthcare team and access your personal medical information anytime with the [facility] Patient Portal. Please follow the directions below to create your [facility] account: 1.Access the email account you provided upon registration to the hospital/physician office.2.Look for an invitation email from [facility].3.Open the email and access the invitation link: AcceptInvitation to [facility].4.Fill in the required zambrano to create your account. To access your account, visit [employer]. Click the blue button labeled Access Patient Portal and then log in with the username and password that you created in the steps above. You will be able to view your test results, lab results, a summary of your visits, upcoming appointments and more. There is also a convenient messaging option where you can send secure messages to your [employer]. In addition, you will have the ability to download any documents or summaries to your computer and/or send the information securely to a physician. Remember that your healthcare information is confidential, so carefully consider who you will allowto register on the [facility] Patient Portal for access to your information. You can also access the [facility] Patient Portal on the [facility] ying. Simply click on Patient Portal and then log into your account. If you would like to receive a full copy of your medical records, please contact the [facility] Medical Records Department by calling [phone], Thursday through Thursday between 8 a.m. and 4:30 p.m. HOW TO SAFELY DISPOSE OF PRESCRIPTION MEDICATIONS Please use one of the following methods to safely dispose of your unused medications. 1.Use a drug disposal kit: the drug disposal pouch allows you to safely discard your old and unuseddrugs. Ask your nurse to give you one when you are discharged.2.Visit a local take-back location: Many local pharmacies and police departments have programs that collect old and unwanted prescriptiondrugs. Call your local pharmacy or go to http://[employer].Agendize/6S1Mm9c to find one close to you.3.Make use of household items: Use cat litter or old coffee grounds to dispose medications if other options arenot available. Mix your drugs with these household products, seal them in an airtight container andthrow it into the garbage. Call [facility]: [phone] to be sure your drugs can be disposed of in this way. Some medicines may require a different approach.4.Never flush your medications down the toilet. IF YOU HAVE BEEN PRESCRIBED AN OPIOID FOR PAIN If you have been prescribed an opioid (such as hydrocodone, oxycodone or morphine), it is critical to understand the possible side effects and risks of opioid pain medications. Even when taken as directed, opioids can have several side effects including: Tolerance, meaning you might need to take more of a medication for the same pain relief. Nausea, vomiting and/or constipation. Sleepiness, dizziness, dry mouth, confusion, depression or itching. Physical dependence, meaning you have withdrawal symptoms when a medication is stopped, can develop within a few days. KNOW YOUR RESPONSIBILITIES It is important to know exactly how much and how often to take the opioid pain medications you are prescribed. Never take opioids in higher amounts or more often than prescribed. Do not combine opioids with alcohol or other drugs that cause drowsiness, such as benzodiazepines, also known as benzos, including diazepam and alprazolam, muscle relaxants or sleep aids. Never sell or share prescription opioids. This is illegal. Store opioids in a secure place and out of reach of others (including children, family, friends and visitors). The last page of this document has been signed and retained as a CHART COPY. Signatures Patient Education Materials Transurethral Resection of the Prostate, Care After Medication Leaflets My discharge plan and instructions have been reviewed and explained to me and IRICKY ORA R understand my current condition and have read and understand these discharge instructions. I have received a written copy of the plan/instructions. If I have questions, I am aware that I should contact my d octor. Patient/Solar Energy Sales Specialist Signature: Date/Time: Relationship to Patient: Witness Name/Signature: Date/Time: [facility]01-17-2025 Anesthesiology Consult note Patient: NAUN GARCÍA Age: 74 years Sex: Male : 1950 Associated Diagnoses: None Author: CHANTEL CARD JOB TRAINING SPECIALIST-COPY CHIEF Assessment Postanesthesia assessment Vitals: Vital signs from flowsheet : Vital Signs 11/25/2024 14:00 EST Heart Rate Monitored 56 bpm bpm Respiratory Rate - Anes 7 br/min br/min Systolic Blood Pressure Non-Invasive 95 mmHg mmHg Diastolic Blood Pressure Non-Invasive 63 mmHg mmHg 11/25/2024 13:55 EST Heart Rate Monitored 62 bpm bpm Respiratory Rate - Anes 15 br/min br/min Systolic Blood Pressure Non-Invasive 89 mmHg mmHg Diastolic Blood Pressure Non-Invasive 65 mmHg mmHg 11/25/2024 13:50 EST Heart Rate Monitored 67 bpm bpm Respiratory Rate - Anes 15 br/min br/min Systolic Blood Pressure Non-Invasive 109 mmHg mmHg Diastolic Blood Pressure Non-Invasive 66 mmHg mmHg 11/25/2024 13:45 EST Temperature (Route Not Specified) 36 DegC DegC Heart Rate Monitored 65 bpm bpm Respiratory Rate - Anes 13 br/min br/min Systolic Blood Pressure Non-Invasive 104 mmHg mmHg Diastolic Blood Pressure Non-Invasive 70 mmHg mmHg 11/25/2024 13:40 EST Heart Rate Monitored 63 bpm bpm Respiratory Rate - Anes 13 br/min br/min Systolic Blood Pressure Non-Invasive 94 mmHg mmHg Diastolic Blood Pressure Non-Invasive 70 mmHg mmHg 11/25/2024 13:35 EST Heart Rate Monitored 69 bpm bpm Respiratory Rate - Anes 12 br/min br/min Systolic Blood Pressure Non-Invasive 107 mmHg mmHg Diastolic Blood Pressure Non-Invasive 74 mmHg mmHg 11/25/2024 13:30 EST Temperature (Route Not Specified) 36 DegC DegC Heart Rate Monitored 70 bpm bpm Respiratory Rate - Anes 15 br/min br/min Systolic Blood Pressure Non-Invasive 107 mmHg mmHg Diastolic Blood Pressure Non-Invasive 73 mmHg mmHg 11/25/2024 13:25 EST Heart Rate Monitored 78 bpm bpm Respiratory Rate - Anes 13 br/min br/min Systolic Blood Pressure Non-Invasive 103 mmHg mmHg Diastolic Blood Pressure Non-Invasive 79 mmHg mmHg 11/25/2024 13:20 EST Heart Rate Monitored 77 bpm bpm Respiratory Rate - Anes 11 br/min br/min Systolic Blood Pressure Non-Invasive 134 mmHg mmHg Diastolic Blood Pressure Non-Invasive 80 mmHg mmHg 11/25/2024 13:17 EST Systolic Blood Pressure Non-Invasive 54 mmHg mmHg 11/25/2024 13:15 EST Temperature (Route Not Specified) 36 DegC DegC Heart Rate Monitored 74 bpm bpm Respiratory Rate - Anes 14 br/min br/min 11/25/2024 13:10 EST Heart Rate Monitored 80 bpm bpm Respiratory Rate - Anes 0 br/min br/min Systolic Blood Pressure Non-Invasive 102 mmHg mmHg Diastolic Blood Pressure Non-Invasive 73 mmHg mmHg 11/25/2024 13:07 EST Systolic Blood Pressure Non-Invasive 127 mmHg mmHg Diastolic Blood Pressure Non-Invasive 79 mmHg mmHg 11/25/2024 13:05 EST Respiratory Rate - Anes 0 br/min br/min 11/25/2024 12:09 EST Temperature Temporal Artery 36.5 DegC Peripheral Pulse Rate 81 bpm Respiratory Rate 23 br/min HI Systolic Blood Pressure Non-Invasive 142 mmHg HI Diastolic Blood Pressure Non-Invasive 85 mmHg , Measurements from flowsheet . Mental status: alert & oriented x 4. Respiratory function: respirations are non-labored. Respiratory support: none. CV function: Normal rate. Cardiovascular support: none. Pain. Nausea status: see nursing documentation of medications. Postoperative hydration status: within normal limits. Digitally Signed by CHANTEL CARD on 11/25/2024 02:11 PM [facility]11-27-2024 [facility] 10-03-2024 Evaluation note* Diagnosis Onset Date Resolution Status Admit Date COPD exacerbation resolved Novem2023 6:01pm SOB (shortness of breath) resolved October 03, 2024 6:01pm Hypoglycemia associated with diabetes acute December 21 11:43am Hypokalemia acute December 11:43am LV dysfunction acute December 102024 11:43am New onset atrial fibrillation acute December 21, 2024 11:43am Tachypnea acute December 21, 2024 11:43am COPD with acute exacerbation chronic December 21, 2024 11:43am Hypertension chronic December 11:43am [facility] Work Phone: 1(125) 294-690708-23-2023 Procedure [facility] 07-01-2023 Discharge summary Author Kaley Singletary [facility] July 01, 2023 11:11am Note Date/Time July 01, 2023 9: 10am [facility] Medical Records Department [address] [place] [address] Instructions for Home/Discharge Instructions 07/01/23 0910 MR#: [id number] Acct: [id number] Name: NAUN GARCÍA Rep #:[id number] : 1950 72 From: Kaley Singletary MD PCP: [facility] Status:REG SDC Discharge Instructions Procedure General Surgery Diet Discharge Diet: Light diet - advance as tolerated (if you have questions about your diet instructions, please talk to you doctor.) Activity Discharge Activity: May Not Drive (for 3-5 days or while taking narcotic pain medicine.) May shower in (days): 1 Lifting Restrictions: 10 pounds Dressing / Incision Call your doctor if your incision/area has: Continuous Slow Oozing, Sudden Increased Bleeding, Increased Pain/ Swelling, Increased Redness and Foul Smelling Discharge Call your doctor if you observe: Fever of 101 or Higher Suture Line Care: Avoid Pulling/Pushing and Avoid Pinching/Bending Additional Dressing/Incision Instructions:: You may change her dressing daily. Use a Q-tip and peroxide to cleanse around the drain site. Reapply dry gauze and tape. Empty measure and record the drain output. Call my office on Thursday morning early with a report of that amount of drainage. Plan for follow-up in the office either Thursday or Thursday depending upon the drain amount Do not shower or tub bathe until further instructions and after the drain is out Follow Up Care Please Follow Up With: Kaley Singletary MD When: Call [phone] to make an appointment to be seen as discussed above. Test Results: Test results from this visit will be discussed in further detail at your follow- up appointment, if applicable. Discharge Plan Admission Primary Reason for Your Visit: Left mid back lipoma Attending Provider: Kaley Singletary Primary Care Provider: [facility] Discharge Orders/Prescriptions Prescriptions: Continued glipizide 10 mg tablet 10 mg PO DAILY chlorthalidone 25 mg tablet 25 mg PO DAILY multivitamin Tablet 1 tab PO DAILY melatonin 3 mg Tablet 3 mg PO QHS tamsulosin 0.4 mg Capsule 0.4 mg PO QHS amlodipine 10 mg Tablet 10 mg PO DAILY Spiriva Respimat 2.5 mcg/actuation Mist 2 puff INHALATION DAILY citalopram 10 mg Tablet 20 mg PO DAILY guaifenesin 200 mg Tablet 200 mg PO Q4H PRN (Reason: Cough) albuterol sulfate [Ventolin HFA] 90 mcg/actuation HFA aerosol inhaler 1 inh inhalation BID pantoprazole 20 mg Tablet,Delayed Release (Dr/Ec) 20 mg PO DAILY fluticasone propionate 50 mcg/actuation [place],Suspension 1 spray INTRANASAL DAILY Rx Instructions: administer into each nostril atorvastatin 40 mg PO/SL DAILY lisinopril 10 mg PO/SL DAILY mupirocin 2 % ointment 1 applic topical BID Qty: 22 0RF Rx Instructions: to affected open areas potassium chloride 20 mEq tablet,ER particles/crystals 20 meq PO BID Qty: 6 0RF Referrals / Follow Up: [facility] [Primary Care Provider] - Disposition Disposition (needs filled in before D/C Order can be placed): Home, Self Care 07/01/23 1111<Electronically signed by Kaley Singletary MD>Kaley Singletary MD CC: [place] [facility] ~ Signed [facility] Work Phone: 1(188) 279-652308-23-2023 History and physical note Author Kaley Singletary [facility] July 01, 2023 9:10am Note Date/Time July 01, 2023 9: 10am [facility] Medical Records Department [address] [address] History & Physical Exam 07/01/23 0909 MR#: [id number] Acct: [id number] Name: NAUN GARCÍA Rep #:[id number] : 1950 72 From: Kaley Singletary MD PCP: [facility] Status:[facility] Location: [place] [address] History and Physical Date of Admission: 07/01/23 Visit Reasons: LIPOMA ON BACK Chief Complaint: lipoma on back [employer]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 Is patient in pain?: No Allergies gabapentin Adverse Reaction (Unknown, Verified 06/10/23 13:35) PT UNSURE OF REACTIONrosuvastatin Adverse Reaction (Unknown, Verified 06/10/23 13:35) PT UNSURE OF REACTIONhydroxyzine Adverse Reaction (Verified 06/10/23 13:35) NEEDS FOLLOW-UP Medications amlodipine 10 mg tablet 10 mg PO DAILY HTN 12/23/21 [History Confirmed 06/10/23] melatonin 3 mg tablet 3 mg PO QHS 12/23/21 [History Confirmed 06/10/23] multivitamin 1 tab PO DAILY 12/23/21 [History Confirmed 06/10/23] tamsulosin 0.4 mg capsule 0.4 mg PO QHS 12/23/21 [History Confirmed 06/10/23] tiotropium bromide 2.5 mcg/actuation mist for inhalation (Spiriva Respimat) 2 puff inhalation DAILY 01/14/22 [History Confirmed 06/10/23] citalopram 10 mg tablet 20 mg PO DAILY MOOD 02/21/22 [History Confirmed 06/10/23] guaifenesin 200 mg tablet 200 mg PO Q4H PRN Cough 02/21/22 [History Confirmed 06/10/23] albuterol sulfate 90 mcg/actuation aerosol inhaler (Ventolin HFA) 1 inh inhalation BID 03/24/22 [History Confirmed 06/10/23] fluticasone propionate 50 mcg/actuation nasal spray,suspension 1 spray intranasal DAILY 04/29/22 [History Confirmed 06/10/23] pantoprazole 20 mg tablet,delayed release 20 mg PO DAILY GERD 04/29/22 [History Confirmed 06/10/23] atorvastatin 20 mg PO/SL DAILY 10/13/22 [History Confirmed 06/10/23] lisinopril 10 mg PO/SL DAILY 10/13/22 [History Confirmed 06/10/23] mupirocin 2 % topical ointment 1 applic topical BID #22 grams 11/05/22 [Rx Confirmed 06/10/23] chlorthalidone 25 mg tablet 25 mg PO DAILY 04/29/23 [History Confirmed 06/10/23] glipizide 10 mg tablet 10 mg PO DAILY 04/29/23 [History Confirmed 06/10/23] PFSH Medical History Acute maxillary sinusitis, unspecified Alcohol use Aneurysm Anxiety Arthritis Benign essential hypertension Bilateral pneumonia Chronic cough COPD (chronic obstructive pulmonary disease) Degenerative joint disease of hand Depression Diabetes Easy bruising Encounter for screening for COVID-19 Excessive bleeding Former smoker Gastric reflux Hepatitis High cholesterol History of echocardiogram History of edema History of steroid therapy History of stress test Hyperlipidemia Hypertension Leg cramps Migraine headache On home oxygen therapy Shortness of breath on exertion Smoking greater than 40 pack years Wears dentures Wears glasses Wears hearing aid Surgical History H/O wrist surgery History of cataract surgery History of esophagogastroduodenoscopy (EGD) History of hand surgery Hx of appendectomy Hx of colonoscopy Family History Father Cancer Heart diseaseMother Heart disease Myocardial infarction Social History household members: spouse Smoking Status: Former smoker quit date: 09/26/21 pack-years: 90 Tobacco: How many years used: 60 alcohol intake: former substance use type: does not use HPI HPI HPI: 72-year-old gentleman. I saw him in the office on April 29, 2023. This was for a cyst and a lipoma of his back. On May 11, 2023 in the office I excised a 2.5 cm diameter sebaceous cyst from his upper mid back. He has a large 12 x 8 cm subcutaneous mass left mid lower back which clinically is suspected to be a lipoma. I did not feel that this could be excised in an office setting. He returns to discuss this lesion. My previous notes reflect the following Visit Reasons: CYST ON BACK AND FATTY TISSUE ON NECK Chief Complaint: cyst on back and fatty tissue on neck Is patient in pain?: No Allergies gabapentin Adverse Reaction (Unknown, Verified 04/29/23 09:21) PT UNSURE OF REACTIONrosuvastatin Adverse Reaction (Unknown, Verified 04/29/23 09:21) PT UNSURE OF REACTIONhydroxyzine Adverse Reaction (Verified 04/29/23 09:21) NEEDS FOLLOW-UP Medications amlodipine 10 mg tablet 10 mg PO DAILY HTN 12/23/21 [History Confirmed 04/29/23] melatonin 3 mg tablet 3 mg PO QHS 12/23/21 [History Confirmed 04/29/23] multivitamin 1 tab PO DAILY 12/23/21 [History Confirmed 04/29/23] tamsulosin 0.4 mg capsule 0.4 mg PO QHS 12/23/21 [History Confirmed 04/29/23] tiotropium bromide 2.5 mcg/actuation mist for inhalation (Spiriva Respimat) 2 puff inhalation DAILY 01/14/22 [History Confirmed 04/29/23] citalopram 10 mg tablet 20 mg PO DAILY MOOD 02/21/22 [History Confirmed 04/29/23] guaifenesin 200 mg tablet 200 mg PO Q4H PRN Cough 02/21/22 [History Confirmed 04/29/23] albuterol sulfate 90 mcg/actuation aerosol inhaler (Ventolin HFA) 1 inh inhalation BID 03/24/22 [History Confirmed 04/29/23] fluticasone propionate 50 mcg/actuation nasal spray,suspension 1 spray intranasal DAILY 04/29/22 [History Confirmed 04/29/23] pantoprazole 20 mg tablet,delayed release 20 mg PO DAILY GERD 04/29/22 [History Confirmed 04/29/23] atorvastatin 20 mg PO/SL DAILY 10/13/22 [History Confirmed 04/29/23] lisinopril 10 mg PO/SL DAILY 10/13/22 [History Confirmed 04/29/23] mupirocin 2 % topical ointment 1 applic topical BID #22 grams 11/05/22 [Rx Confirmed 04/29/23] chlorthalidone 25 mg tablet 25 mg PO DAILY 04/29/23 [History Confirmed 04/29/23] glipizide 10 mg tablet 10 mg PO DAILY 04/29/23 [History Confirmed 04/29/23] [facility] Medical History Acute maxillary sinusitis, unspecified Alcohol use Aneurysm Anxiety Arthritis Benign essential hypertension Bilateral pneumonia Chronic cough COPD (chronic obstructive pulmonary disease) Degenerative joint disease of hand Depression Diabetes Easy bruising Encounter for screening for COVID-19 Excessive bleeding Former smoker Gastric reflux Hepatitis High cholesterol History of echocardiogram History of edema History of steroid therapy History of stress test Hyperlipidemia Hypertension Leg cramps Migraine headache On home oxygen therapy Shortness of breath on exertion Smoking greater than 40 pack years Wears dentures Wears glasses Wears hearing aid Surgical History H/O wrist surgery History of cataract surgery History of esophagogastroduodenoscopy (EGD) History of hand surgery Hx of appendectomy Hx of colonoscopy Family History Father Cancer Heart diseaseMother Heart disease Myocardial infarction Social History household members: spouse Smoking Status: Former smoker quit date: 09/26/21 pack-years: 90 Tobacco: How many years used: 60 alcohol intake: former substance use type: does not use HPI HPI HPI: 72-year-old gentleman referred by the [facility] for surgical consultation regarding a cystic lesion on his back and a fatty soft tissue mass on his back. A written copy of my surgical consult recommendations will be returned to the [facility] system. The patient is complaining that the upper back cystic lesion isintermittently tender. He has had no drainage. He has never had that incised and drained. The patient is complaining of tenderness of the fibrofatty mass inthe left mid lateral back particularly inhibiting him being able to sleep on hisleft side. He feels that the left mid back lesion has been progressively enlarging. ROS General General: No weight change, appetite, fatigue, colon cancer, breast cancer or weakness HEENT HEENT: No difficulty swallowing, eye injury, eye surgery, swollen glands or hoarseness Endo Endocrine: Yes diabetes mellitus; No thyroid disease, thyroid cancer, Hair loss, heat intolerance or cold intolerance Skin Skin: No rash or changing moles Musc Musculoskeletal: Yes arthritis and rheumatoid arthritis; No back problems, gout or joint pain Cardio Cardiovascular: Yes high blood pressure; No murmur, pacemaker, heart disease, atrial fibrillation, heart attack, heart stent, palpitations, shortness of breat with exertion or chest pain Psych Psychiatric: No depression, anxiety or hearing voices Resp Respiratory: Yes shortness of breath, No sleep apnea, No cough, Yes COPD, No asthma, No emphysema and No wheezing Gastro Gastrointestinal: No abdominal pain, No nausea or vomiting, No diarrhea, No constipation, No blood in stool, No acid reflux, No hemorrhoids, No ulcers, No gallbladder problem and No black,tarry stools Chevy Hematologic: No blood thinners, No blood disorders, No bleeding, No anemia and No blood clots Neuro Neurologic: No system reviewed and no additional complaints, except as documented, No as per HPI, No abnormal gait, No abnormal hearing, No abnormal movements, No abnormal speech, No behavioral changes, No burning sensations, No confusion, No convulsions, No disequilibrium, No dizziness, No localized weakness, No frequent falls, No headache(s), No lack of coordination, No loss ofvision, No memory loss, No numbness, No other visual disturbances, No radicular pain, No restless legs, No sensory deficit, No syncope, No tingling, No tremor(s), No weakness and No other Exam Const General: cooperative, comfortable and no acute distress HENMT Head: normal to inspection Chest Other: Upper mid back at the shoulder level there is a sebaceous cyst measuring 2.5 cm in diameter. No drainage. Very slightly tender but no erythema. Left mid lateral back nondescript fibrofatty mass measuring 12 x 8 cm deep fixation. Resp Effort & Inspection: normal respiratory effort Auscultation: clear to auscultation bilaterally Cardio Rate: regular rate Rhythm: regular rhythm GI Palpation: soft and no hepatosplenomegaly Extrem General: no calf tenderness Psych Appearance: grossly normal Assessment and Plan Assessment and Plan (1) Sebaceous cyst: Status: Acute (2) Lipoma of back: Status: Acute Plan: Patient appears to have a sebaceous cyst upper back at the shoulder area. He iscomplaining of tenderness to touch. Potential for low-grade infection. I propose for him an office elliptical excision under local anesthesia and we havediscussed the technique, benefit, risk, alternatives. Pending his progress thenwith that procedure we can then discuss whether excision of the left mid lower back lesion would warrant excision. That appears to be a 12 x 8 cm subcutaneouslipoma with deep fixation. I do not believe that I can easily excise that in anoffice setting meaning that would require at least a trip to the operating room for monitored anesthesia care and excision. I have cautioned about potential risk for seroma formation or recurrence. We will not schedule for that procedure yet until we see how he does with the excision of the sebaceous cyst. He has had an opportunity to ask and have questions answered. I appreciate the opportunity of assisting with the surgical care. We will schedule and proceed as noted. ROS General General: No weight change, appetite, fatigue, colon cancer, breast cancer or weakness HEENT HEENT: No difficulty swallowing, eye injury, eye surgery, swollen glands or hoarseness Endo Endocrine: Yes diabetes mellitus; No thyroid disease, thyroid cancer, Hair loss, heat intolerance or cold intolerance Skin Skin: No rash or changing moles Musc Musculoskeletal: Yes arthritis and rheumatoid arthritis; No back problems, gout or joint pain Cardio Cardiovascular: Yes high blood pressure; No murmur, pacemaker, heart disease, atrial fibrillation, heart attack, heart stent, palpitations, shortness of breat with exertion or chest pain Psych Psychiatric: No depression, anxiety or hearing voices Resp Respiratory: Yes shortness of breath, No sleep apnea, No cough, Yes COPD, No asthma, No emphysema and No wheezing Gastro Gastrointestinal: No abdominal pain, No nausea or vomiting, No diarrhea, No constipation, No blood in stool, No acid reflux, No hemorrhoids, No ulcers, No gallbladder problem and No black,tarry stools Chevy Hematologic: No blood thinners, No blood disorders, No bleeding, No anemia and No blood clots Neuro Neurologic: No system reviewed and no additional complaints, except as documented, No as per HPI, No abnormal gait, No abnormal hearing, No abnormal movements, No abnormal speech, No behavioral changes, No burning sensations, No confusion, No convulsions, No disequilibrium, No dizziness, No localized weakness, No frequent falls, No headache(s), No lack of coordination, No loss ofvision, No memory loss, No numbness, No other visual disturbances, No radicular pain, No restless legs, No sensory deficit, No syncope, No tingling, No tremor(s), No weakness and No other Assessment and Plan Assessment and Plan (1) Lipoma of back: Status: Acute Plan: The patient is requesting excision of his left mid lateral back subcutaneous mass clinically consistent with a lipoma. I have discussed the technique, benefit, risk, alternatives with him. I am hopeful that I can accomplish this in the operating room under monitored anesthesia care with local anesthetic. Heis aware that I may need to place a drain. He has had the opportunity to ask and have questions answered. We will have him hold his aspirin. We will schedule procedure at his discretion. I appreciate the ongoing opportunity of assisting with the surgical care. Copy: [facility] Kaley Singletary M.D., [place] I have examined the patient and the H&P has been reviewed. There are no clinicalchanges since date of exam. Kaley Singletary M.D., [place]. 07/01/23 0910 <Electronically signed by Kaley Singletary MD> Cosigner Signature (if applicable): CC: Dr. Kaley Singletary MD; [facility]~ Signed [facility] Work Phone: 1(197) 222-400012-28-2022 Evaluation note* Diagnosis Onset Date Resolution Status Cancer of prostate w/low rec urrence risk (T1-2a, [place]<7 & PSA<10) acute Personal history of colonic polyps acute [facility] Work Phone: 1(775) 199-116412-05-2022 Hospital Discharge instructions Additional Instructions Rest the ankle, elevate it when possible, and ice the area for 10 to 15 minutes 3 times a day for the next few days. Please return for any new or worsening symptoms.[facility] Work Phone: 1(567) 854-229912-05-2022 Evaluation note* Diagnosis Onset Date Resolution Status Cancer of prostate w/low rec urrence risk (T1-2a, [place]<7 & PSA<10) acute Personal history of colonic polyps acute [facility] Work Phone: Discharge summary Author Facundo Sotomayor [facility] Note Date/Time May 30, 2025 10:4 0am [facility] Medical Records Department [address] [place] [address] Emergency Department Summary 05/30/25 MR#: [id number] Acct: [id number] Name: JUAN RAMON GARCÍAAl Apple Rep #:[id number] : 1950 74 From: Facundo Sotomayor MD PCP: [facility] Status:REG ER Location: ED HPI History of Present Illness Chief Complaint: Headache Detail of Chief Complaint: By lateral headache with tenderness in the adventist area Informant: patient Onset/Context/Timing Onset: Days (Approximately 3 days ago) Quality -Headache: Positive for Other (Pain); Negative for Similar Prior Headaches, Sharp, Dull, Throbbing, Tightness or Burning Location: Tenderness bitemporal but complains of bilateral headache Current Severity: Moderate Maximum Severity: Severe Worsened by: Palpation and change in position Relieved by: Nothing Associated Symptoms/Injury Associated Symptoms: Positive for Fever (Subjective) and Nausea; Negative for Vomiting, Sore Throat, Sinus Pressure, Numbness, Tingling, Preceding Aura, Visual Changes, Blurred Vision, Photophobia or Visual Loss Injury - GODOY: Negative for Direct Trauma Narrative Narrative: Patient is a 74-year-old male with history of COPD, diabetes, hypertension, GERD, dyslipidemia and prostate cancer diagnosed last year who presents with headache that started approximately 4 days ago. He states he has problems with his balance. He denies double vision, blurred vision or loss of vision. He does have tenderness over the right and left adventist area worse right. Headache is worse when he is supine. He states for approximately the past 3 to 4 days she has had trouble opening his mouth completely. He denies discomfort with chewing. He denies trouble with speech or swallowing. He denies paresthesia, anesthesia or motor weakness. Patient is noted to be slightly tachypneic. He states sometimes he is short of breath after walking. He denies cough or sputum production. He denies abdominal pain. He does endorse nausea without vomiting or diarrhea. He denies dysuria, frequency, urgency or hematuria. Prior similar symptoms: No Recent Illness/Hospitalization: No [facility] Medical History ESBL (extended spectrum beta-lactamase) producing bacteria infection Osteoporosis Migraines Loss of hearing Rash Insulin dependent diabetes mellitus BPH (benign prostatic hyperplasia) History of ESBL E. coli infection Left ventricular systolic dysfunction (LVSD) Hyperbilirubinemia Transaminitis Hyperglycemia due to type 2 diabetes mellitus Prostate disease Dietary restriction Lipoma of back Sebaceous cyst Aneurysm Anxiety Excessive bleeding Chronic cough History of edema History of stress test History of echocardiogram Degenerative joint disease of hand Hyperlipidemia Benign essential hypertension Wears hearing aid Wears glasses Wears dentures Depression Alcohol use Diabetes History of steroid therapy Arthritis Hepatitis Easy bruising Gastric reflux Shortness of breath on exertion On home oxygen therapy Leg cramps Former smoker Hypertension COPD (chronic obstructive pulmonary disease) Smoking greater than 40 pack years Leukocytosis Home Medications ?Medication ?Instructions ?Recorded ?Last Taken ?Type melatonin 3 mg tablet 3 mg PO QHS sleep aid 10/02/24 History multivitamin 1 tab PO DAILY multivitamin 12/23/21 10/03/24 History guaifenesin 200 mg tablet 200 mg PO Q4H PRN Cough 02/07 03/30 Unknown History albuterol sulfate 90 mcg/actuation 1 inh inhalation BI D COPD 03/24/22 07/01/23 History aerosol inhaler (Ventolin HFA) fluticasone propionate 50 1 spray intranasal DAILY PRN 04/29/22 06/19/24 History mcg/actuation nasal allergy symptoms spray,suspension glipizide 10 mg tablet 10 mg PO BID Diabetes 10/03/24 History potassium chloride 20 mEq 20 meq PO BID potassium #6 t abs 06/16/23 10/03/24 Rx tablet,extended release(part/cryst) primidone 50 mg tablet (Mysoline) 50 mg PO QHS primido ne 05/05/24 10/02/24 History blood sugar diagnostic (Accu-Chek #100 ea 06/28/24 Unk nown Rx Guide test strips) blood-glucose meter (Accu-Chek #1 ea 06/28/24 Unknown Rx Guide Glucose Meter) lancets #200 ea 06/28/24 Unknown Rx lisinopril 2.5 mg tablet 2.5 mg PO DAILY blood pressu re 30 06/28/24 Unknown Rx days #30 tabs atorvastatin 40 mg tablet 40 mg PO DAILY cholesterol 1 12/03/23 10/03/24 History insulin glargine-yfgn 100 unit/mL 16 unit subcut BID d iabetes 10/03/24 10/03/24 History (3 mL) subcutaneous pen insulin lispro 100 unit/mL 1 sliding scale dose subcut ACHS 10/03/24 10/03/24 History subcutaneous pen (Humalog KwikPen diabetes (U-100) Insulin) ipratropium 0.5 mg-albuterol 3 mg 3 ml inhalation Q6H PRN COPD with 10/03/24 Unknown History (2.5 mg base)/3 mL nebulization exacerbation soln nystatin 100,000 unit/gram topical 1 applic topical BI D PRN skin 10/03/24 Unknown History powder (Nyamyc) irritation amlodipine 2.5 mg tablet 2.5 mg PO DAILY 30 days #30 tabs 12/24/24 Unknown Rx fosfomycin tromethamine 3 gram 1 packet PO QODAY 3 dos es #1 ea 12/24/24 Unknown Rx oral packet metoprolol tartrate 50 mg tablet 50 mg PO BID 30 days #60 tabs 12/24/24 Unknown Rx Allergy/AdvReac Type Severity Reaction Status Date / Time No Known Allergies Allergy Verified 05/30/25 08:51 Family History Father Cancer Heart disease Mother Heart disease Myocardial infarction Surgical History History of excision of mass History of cataract surgery History of esophagogastroduodenoscopy (EGD) Hx of colonoscopy History of hand surgery Hx of appendectomy H/O wrist surgery Social History household members: significant other Smoking Status: Former smoker quit date: 09/26/21 pack-years: 90 Tobacco: How many years used: 60 alcohol intake: former substance use type: does not use ROS ROS ED Constitutional Constitutional ED: Reports chills, fever(s) and subjective; Denies sweats or weight loss Eyes Eyes: Denies blurry vision, change in vision or diplopia ENT ENT ED: Denies ear pain, rhinorrhea or sore throat Cardiovascular Cardiovascular: Denies chest pain, orthopnea, palpitations or paroxysmal nocturnal dyspnea Respiratory/Chest Respiratory/Chest: Reports dyspnea and dyspnea on exertion; Denies cough, orthopnea or paroxysmal nocturnal dyspnea Gastrointestinal Gastrointestinal: Reports nausea; Denies abdominal pain, diarrhea, melena or vomiting Genitourinary Genitourinary ED: Denies dysuria, hematuria or urinary frequency Musculoskeletal Musculoskeletal: Denies arthralgias or myalgias Integumentary Denies abscess or rash Neurologic Neurologic: Reports headache(s); Denies paresthesias or weakness Hematologic/Lymphatic Hematologic/Lymphatic: Denies easy bleeding or easy bruising EXAM Physical Exam Const Vital Signs: 05/30/25 08:50 Temperature 98.4 F Temperature Source Oral Pulse Rate 86 Respiratory Rate 20 H Blood Pressure 142/94 H Blood Pressure Mean 110 Pulse Ox 99 Oxygen Delivery Method Room Air Positive well nourished and well developed Constitutional Narrative: Patient is slightly tachypneic. Patient does not appear well. General Appearance ED: well developed; Negative for cyanotic, diaphoretic or pallor HEENT Reports normocephalic, TM's clear and dry mucous membranes; Denies moist mucous membranes HEENT Narrative: Nares patent. No drainage. Posterior pharynx erythema or exudate. Uvula is midline. There is no deviation of the tongue with protrusion. atraumatic, tenderness and temporal artery tenderness bilateral (Right greater than left); Negative for vesicular rash Tympanic Membrane ED: Yes TM's clear Mouth ED: Yes dry mucous membranes Mouth: dry mucous membranes Eyes PERRL and EOMs intact bilaterally General Eye ED: Negative for pale conjunctiva or scleral icterus Neck no lymphadenopathy, supple, no meningeal signs and no JVD Resp normal respiratory effort and clear to auscultation bilaterally Cardio regular rate, regular rhythm, S1 normal heart sound, S2 normal heart sound and no murmurs GI non-tender Auscultation: normoactive bowel sounds Palpation: soft Back/Spine no CVA tenderness Extremity normal to inspection, full ROM and normal capillary refill General Extremety ED: Negative for edema or tenderness General Extremity: Negative for edema Neuro oriented x3, CN's II-XII intact bilaterally and no sensory deficits noted Sensorium / Orientation: awake and alert Coordination / Balance: akvojr-se-nohm test normal Speech: speech normal Motor Exam: strength 5/5 throughout Psych Mood & Affect: depressed Skin General Skin Exam: Negative for elasticity normal, turgor normal, jaundice or pallor Lesions: no lesions Rashes: no rashes MDM MDM MDM Narrative Medical decision making narrative: Differential diagnosis would include sinus infection since is positional. With him having tenderness over the temporal artery need to be, this could be a vascular headache or tension headache. He reports problems with balance howeverhis neuroexam is nonfocal. CT of the head was obtained to determine if there isany intracranial pathology since he is reporting night sweats. He states that his sheets are soaked. BMP to assess renal function in the event contrast needsto be given and to assess glucose CO2 anion gap since he is diabetic. History & Record Review Additional record(s) reviewed:: Prior inpatient record (Patient was admitted December of this year for COPD exacerbation. ER note authored by the her reviewed the echo was reviewed as well as admission note by Dr. Allen Gutierrez'sand his discharge note. She was also admitted September of last year for COPD exacerbation.), Prior ED visit and Prior labs Lab Data Attestation: I reviewed the patient's lab results. Lab results narrative: White count is elevated 14.5 thousand with slight shift. This is not a new abnormality. Sed rate is slightly elevated 36. It is not significant when corrected for age. When corrected for age normal is 37.5. Labs: Laboratory Results - last 24 hr 05/30/25 09:13 WBC 14.5 H RBC 4.09 L Hgb 12.1 L Hct 37.4 L MCV 91.4 MCH 29.6 MCHC 32.4 RDW Std Deviation 46.1 H RDW Coeff of Tarik 13.6 Plt Count 605 H MPV 9.2 Immature Gran % (Auto) 0.900 Neut % (Auto) 79.3 H Lymph % (Auto) 11.1 L Wilson % (Auto) 7.4 Eos % (Auto) 1.0 Baso % (Auto) 0.3 Absolute Neuts (auto) 11.5 H Absolute Lymphs (auto) 1.61 Nucleated RBC % 0 ESR 36 H Sodium 134 Potassium 4.4 Chloride 99 Carbon Dioxide 24.7 Anion Gap 11 BUN 12 Creatinine 0.87 Estim Creat Clear Calc 125.75 Est GFR (MDRD) Non-Af 90 BUN/Creatinine Ratio 14.2 Glucose 274 H Calcium 9.7 Radiography Diagnostic Testing: Clinical Impression(s) from Imaging Studies Brain CT 05/30/25 09:00 IMPRESSION: There is low-density consistent with chronic ischemic change in the deep white matter on the right and left basal ganglia, similar to the prior. No acute intracranial pathology. Reading Location: [facility] C-minus of the head reveals no acute findings. There is atrophy. There is no mucosal thickening or fluids noted in the frontal, ethmoid, maxillary or sphenoidsinuses. Or mass effect noted. Awaiting formal read by radiologist, 0916 Treatment and Re-Evaluation Narrative: Patient was reassessed at 1039. Patient is smiling. His headache is resolved. Will discharge to home. Discharge Plan Triage Chief Complaint: Headache ED Provider: Facundo Sotomayor Dx/Rx/DC Orders Clinical Impression: Acute intractable headache, Dyslipidemia, Essential tremor Instructions: Understanding Headache Pain Prescriptions: No Action glipizide 10 mg tablet 10 mg PO BID multivitamin Tablet 1 tab PO DAILY melatonin 3 mg Tablet 3 mg PO QHS guaifenesin 200 mg Tablet 200 mg PO Q4H PRN (Reason: Cough) albuterol sulfate [Ventolin HFA] 90 mcg/actuation HFA aerosol inhaler 1 inh inhalation BID fluticasone propionate 50 mcg/actuation [place],Suspension 1 spray INTRANASAL DAILY PRN (Reason: allergy symptoms) Rx Instructions: administer into each nostril primidone [Mysoline] 50 mg tablet 50 mg PO QHS (DME) blood-glucose meter [Accu-Chek Guide Glucose Meter] Misc See Rx Instructions .Route Qty: 1 0RF Rx Instructions: As directed with ACHS checks for ISS and also PRN (DME) Accu-Chek Guide test strips Strip See Rx Instructions .Route Qty: 100 0RF Rx Instructions: As directed, may substitute test strips to match patient machine. Use ACHS and PRN. (DME) lancets Misc See Rx Instructions .Route Qty: 200 0RF Rx Instructions: As directed for obtaining ACHS and PRN accu checks. lisinopril 2.5 mg Tablet 2.5 mg PO DAILY 30 Days Qty: 30 0RF atorvastatin 40 mg tablet 40 mg PO DAILY ipratropium-albuterol 0.5 mg-3 mg(2.5 mg base)/3 mL Solution For Nebulization 3 ml inhalation Q6H PRN (Reason: COPD with exacerbation) nystatin [Nyamyc] 100,000 unit/gram Powder 1 applic topical BID PRN (Reason: skin irritation) Protocol: *Topical Application Instructions APPLICATION INSTRUCTIONS: axillary Rx Instructions: Cleanse affected skin with soap/water, pat dry and then apply powder. insulin lispro [Humalog KwikPen Insulin] 100 unit/mL Insulin Pen 1 sliding scale dose subcut ACHS Protocol: 3. Sliding Scale Insulin Med Dosing Condition: 150-189 mg/dl = 1 unit Condition: 190-229 mg/dl = 2 units Condition: 230-269 mg/dl = 3 units Condition: 270-309 mg/dl = 4 units Condition: 310-349 mg/dl = 5 units Condition: 350-399 mg/dl = 6 units Condition: 400-449 mg/dl = 7 units Condition: Greater than 449 call physician Protocol Text: Suggested for: - Patients on Total Daily Insulin Dose of 37-55 units - Obese, infected, or steroid patients MEDIUM DOSING ALGORITHIM insulin glargine-yfgn 100 unit/mL (3 mL) Insulin Pen 16 unit subcut BID Rx Instructions: Please continue insulin as rx; however, when you finish your steroid therapy for COPD exacerbation, the regimen may need decreased. Please monitor your bloodsugars and closely follow with your PCP. amlodipine 2.5 mg Tablet 2.5 mg PO DAILY 30 Days Qty: 30 0RF metoprolol tartrate 50 mg Tablet 50 mg PO BID 30 Days Qty: 60 0RF fosfomycin tromethamine 3 gram packet 1 packet PO QODAY Qty: 1 0RF potassium chloride 20 mEq tablet,ER particles/crystals 20 meq PO BID Qty: 6 0RF [facility] [facility] [Primary Care Provider] - As Needed Print Language: Kazakh Disposition Disposition: Home, Self Care What to do if you have Problems For any increased pain, shortness of breath, bleeding, nausea or vomiting, chestpain, or any unexpected problems, contact your Primary Care Provider. Call [facility] ([phone]) or report to the closest Emergency Room. Call 911 if necessary. 05/30/25 1040 <Electronically signed by Facundo Sotomayor MD> Cosigner Signature (if applicable): CC: [facility] ~ Signed [facility] Work Phone: Evaluation + Plan note Future Appointments [facility] Evaluation note* Diagnosis Onset Date Resolution Status Abdominal distention acute Abdominal pain acute COPD (chronic obstructive pulmonary disease) acute [facility] Work Phone: Evaluation note* Diagnosis Onset Date Resolution Status Abdominal distention acute Abdominal pain acute COPD (chronic obstructive pulmonary disease) acute Acute bronchospasm acute Bronchitis acute Acute and chronic respiratory failure chronic Acute exacerbation of chroni c obstructive pulmonary disease chronic [facility] Work Phone: Evaluation note* Diagnosis Onset Date Resolution Status Abdominal distention acute Abdominal pain acute COPD (chronic obstructive pulmonary disease) acute Acute bronchospasm acute Bronchitis acute Acute and chronic respiratory failure chronic Acute and chronic respiratory failure with hypoxia chronic Acute exacerbation of chroni c obstructive pulmonary disease chronic COPD with acute exacerbation chronic Diabetes chronic [facility] Work Phone: Evaluation note* Diagnosis Onset Date Resolution Status Bronchitis acute Acute and chronic respiratory failure chronic Acute and chronic respiratory failure with hypoxia chronic Acute exacerbation of chroni c obstructive pulmonary disease chronic COPD with acute exacerbation chronic Diabetes chronic Acute bronchospasm resolved Cancer of prostate w/low rec urrence risk (T1-2a, [place]<7 & PSA<10) acute Personal history of colonic polyps acute [facility] Work Phone: Evaluation note* Diagnosis Onset Date Resolution Status Lipoma of back acute Sebaceous cyst acute Sebaceous cyst acute Sebaceous cyst acute Lipoma of back acute [facility] Work Phone: Evaluation noteNo assessment information available [facility] Work Phone: Hospital course Narrative No data available for this section [phone] Work Phone: [phone] Work Phone: [phone] Work Phone: [phone] Work Phone: [phone] Discharge instructions Additional Instructions Implant Used?: [facility] Work Phone: [phone] Discharge instructions No data available for this section [facility] Progress note No data available for this section [facility] Reason for referral (narrative)No reason for referral information availableBluff[facility] Work Phone: Chief Complaint and Reason for Visit Chief Complaint SOB SOB UPPER AND LOWER SCOPE PAIN COPD J44.9 CHRONIC OBSTRUCTIVE PULMONARY DISEASE Reason for Visit Abdominal distention Abdominal pain COPD (chronic obstructive pulmonary disease) Chief Complaint SOB SOB UPPER AND LOWER SCOPE PAIN COPD J44.9 CHRONIC OBSTRUCTIVE PULMONARY DISEASE CHRONIC OBSTRUCTIVE PULMONARY DISEASE Reason for Visit Abdominal distention Abdominal pain COPD (chronic obstructive pulmonary disease) Chief Complaint SOB UPPER AND LOWER SCOPE PAIN COPD J44.9 CHRONIC OBSTRUCTIVE PULMONARY DISEASE CHRONIC OBSTRUCTIVE PULMONARY DISEASE CHRONIC OBSTRUCTIVE PULMONARY DISEASE SOB Reason for Visit Abdominal distention Abdominal pain COPD (chronic obstructive pulmonary disease) Chief Complaint SOB UPPER AND LOWER SCOPE PAIN COPD J44.9 CHRONIC OBSTRUCTIVE PULMONARY DISEASE CHRONIC OBSTRUCTIVE PULMONARY DISEASE SOB CHRONIC OBSTRUCTIVE PULMONARY DISEASE Reason for Visit Abdominal distention Abdominal pain COPD (chronic obstructive pulmonary disease) Chief Complaint UPPER AND LOWER SCOP E PAIN COPD J44.9 CHRONIC OBSTRUCTIVE PULMONARY DISEASE CHRONIC OBSTRUCTIVE PULMONARY DISEASE SOB CHRONIC OBSTRUCTIVE PULMONARY DISEASE CHRONIC OBSTRUCTIVE PULMONARY DISEASE COPD EXACERBATION Reason for Visit Abdominal distention Abdominal pain COPD (chronic obstructive pulmonary disease) Acute bronchospasm Bronchitis Acute and chronic respiratory failure Acute exacerbation of chronic obstructive pulmonary disease Chief Complaint UPPER AND LOWER SCOP E PAIN COPD J44.9 CHRONIC OBSTRUCTIVE PULMONARY DISEASE CHRONIC OBSTRUCTIVE PULMONARY DISEASE SOB CHRONIC OBSTRUCTIVE PULMONARY DISEASE CHRONIC OBSTRUCTIVE PULMONARY DISEASE COPD EXACERBATION COPD EXACERBATION COPD EXACERBATION COPD EXACERBATION COPD EXACERBATION Reason for Visit Abdominal distention Abdominal pain COPD (chronic obstructive pulmonary disease) Acute bronchospasm Bronchitis Acute and chronic respiratory failure Acute and chronic respiratory failure with hypoxia Acute exacerbation of chronic obstructive pulmonary disease COPD with acute exacerbation Diabetes Chief Complaint CHRONIC OBSTRUCTIVE PULMONARY DISEASE COPD EXACERBATION COPD EXACERBATION COPD EXACERBATION COPD EXACERBATION COPD EXACERBATION COPD EXACERBATION COPD EXACERBATION Amb Documentation Consult - prostate C-Scope Reason for Visit Bronchitis Acute and chronic respiratory failure Acute and chronic respiratory failure with hypoxia Acute exacerbation of chronic obstructive pulmonary disease COPD with acute exacerbation Diabetes Acute bronchospasm Cancer of prostate w/low recurrence risk (T1-2a, [place]<7 & PSA<10) Personal history of colonic polyps Chief Complaint Amb Documentation Consult - prostate C-Scope SWELLING TO LOWER LEG Reason for Visit Cancer of prostate w /low recurrence risk (T1-2a, [place]<7 & PSA<10) Personal history of colonic polyps Chief Complaint Amb Documentation Consult - prostate C-Scope SWELLING TO LOWER LEG WOUND RASH Reason for Visit Cancer of prostate w /low recurrence risk (T1-2a, [place]<7 & PSA<10) Personal history of colonic polyps Chief Complaint CYST ON BACK AND FAT TY TISSUE ON NECK EXCISION OF SEBACEOUS CYST ON BACK SUTURE REMOVAL LIPOMA ON BACK PREOP Excision, Lipoma of back Excision, Lipoma of back Reason for Visit Lipoma of back Sebaceous cyst Sebaceous cyst Sebaceous cyst Lipoma of back Chief Complaint Admit Date COPD EXACERBATION, HYPOXIA September 6:01pm COPD EXACERBATION, HYPOXIA September 2:04pm COPD EXACERBATION, HYPOXIA September 12:31pm URINARY October 07, 2024 8:23am NEW AFIB December 21, 2024 11:43am NEW AFIB December 21, 2024 11:52am NEW AFIB December 21, 2024 4:32pm NEW AFIB December 22, 2024 2:04pm NEW AFIB December 22, 2024 2:57pm NEW AFIB December 23, 2024 2:17pm NEW AFIB December 23, 2024 4:57pm NEW AFIB December 24, 2024 3:30pm AAA January 19, 2025 8:5 1am Reason for Visit Admit Date COPD exacerbation October 03, 2024 6:01pm SOB (shortness of breath) October 03, 2024 6:01pm Hypoglycemia associated with diabetes Fe bruary 2024 11:43am Hypokalemia December 21, 2024 11:43am LV dysfunction December 21, 2024 11:43am New onset atrial fibrillation December 102024 11:43am Tachypnea December 21, 2024 11:43am COPD with acute exacerbation December 212024 11:43am Hypertension December 21, 2024 11:43am Chief Complaint Admit Date AAA, Dr. Singletary March 01, 2025 8:4 8am headache May 30, 2025 8:49 am Reason for Visit Admit Date AAA (abdominal aortic aneurysm) March 012024 8:48am Chief Complaint Admit Date headache May 30, 2025 8:49 am Chief Complaint Admit Date headache May 30, 2025 8:49 am HEADACHE, DIPLOPIA,NEW ONSET August 12:16pm Family History No Family History Records Found Relationship Condition Age at Onset Recorded Date/T stephanie father Malignant neoplasm Unknown Cardiac disease Unknown mother Cardiac disease Unknown Myocardial infarction Unknown Advance Directives No Advanced Directives Records Found Advance Directive Response Recorded Date/ Time Advance Directives No August 13, 2015 7:21am Living Will No February 21, 2022 8:55am Power of Sample Card Maker No February 21 8:55am Advance Directive Response Recorded Date/ Time Advance Directives on File No February 21, 2022 8:55am Advance Directives No August 13, 2015 7:21am Living Will No March 24, 2022 1 0:21am Power of Sample Card Maker No March 24, 2022 10:21am Advance Directive Response Recorded Date/ Time Advance Directives on File No February 21, 2022 8:55am Name of Medical Power of Sample Card Maker chuy [email or web address] April 29, 2022 3:30pm Advance Directives No August 13, 2015 7:21am Living Will No April 29, 2022 3:30pm Power of Sample Card Maker Yes April 29 3:30pm Advance Directive Response Recorded Date/ Time Advance Directives on File No February 21, 2022 8:55am Name of Medical Power of Sample Card Maker chuy [email or web address] April 29, 2022 3:30pm Advance Directives No August 13, 2015 7:21am Living Will No May 29, 2022 7:23am Power of Sample Card Maker No May 29 7:23am Advance Directive Response Recorded Date/ Time Advance Directives on File No February 21, 2022 8:55am Name of Medical Power of Sample Card Maker chuy [email or web address] April 29, 2022 3:30pm Advance Directives No August 13, 2015 7:21am Living Will No May 29, 2022 9:14am Power of Sample Card Maker No May 29 9:14am Advance Directive Response Recorded Date/ Time Advance Directives No August 13, 2015 6:21am Living Will No September 19, 2 022 12:08pm Power of Sample Card Maker No September 19, 2022 12:08pm Advance Directive Response Recorded Date/ Time Advance Directives No August 13, 2015 6:21am Living Will No October 13 11:44am Power of Sample Card Maker No October 13, 2022 11:44am Advance Directive Response Recorded Date/ Time Advance Directives No August 13, 2015 6:21am Living Will No November 05, 2 022 9:56am Power of Sample Card Maker No November 05, 2022 9:56am Advance Directive Response Recorded Date/ Time Advance Directives No August 13, 2015 7:21am Living Will No June 12, 2023 10:50am Power of Sample Card Maker No June 12 10:50am Advance Directive Response Recorded Date/ Time Living Will No October 07, 2 024 10:03am Do you have a Healthcare Power of Sample Card Maker? No October 07, 2024 10:03am Living Will No October 03 8:10pm Do you have a Healthcare Power of Sample Card Maker? No October 03, 2024 8:10pm Living Will No December 21 1:09pm Do you have a Healthcare Power of Sample Card Maker? No December 21, 2024 1:09pm Advance Directives No August 13, 2015 7:21am Advance Directive Response Recorded Date/ Time Do you have a Healthcare Power of Sample Card Maker? No May 30, 2025 9:01am Advance Directives No August 13, 2015 7:21am Summary Purpose Additional Source Comments Goals (unrecognized section and content) Goals may be documented in a n alternate sectionGoals may be documented in an alternate sectionGoals may be documented in an alternate section No data available for this section No data available for this sectionGoals may be documented in an alternate sectionGoals may be documented in an alternate sectionGoals may be documented in an alternate section Care Teams (unrecognized sec tion and content) Team Status: Active Member Role Status Dates [facility] Family Provider Active [facility] Primary Care Provider Active Team Status: Inactive Member Role Status Dates [facility] Primary Care Provider, Referring Provider Active Dr. Kaley Singletary MD Attending Provider Active Team Status: Inactive Member Role Status Dates [facility] Primary Care Provider, Referring Provider Active Crys KHAN PAFerozC Attending Provider Active Team Status: Active Member Role Status Dates [facility] Primary Care Provider Active Dr. Lorenzo Anderson MD Attending Provider Active Dr. Kaley Singletary MD Referring Provider Active Team Status: Active Member Role Status Dates [facility] Primary Care Provider, Referring Provider Active Dr. Kaley Singletary MD Attending Provider, Other Prov ider Active Team Status: Active Member Role Status Dates [facility] Primary Care Provider Active Team Status: Inactive Member Role Status Dates [facility] Primary Care Provider Active Start: October 03, 2024 End: October 05, 2024 Dr. Moustapha Jaramillo DO Emergency Provider Active Start: October 03, 2024 End: October 05, 2024 Dr. Triny Trinidad MD Admit Provider Active St art: October 03, 2024 End: October 05, 2024 Dr. Triny Trinidad MD Other Provider Active St art: October 03, 2024 End: October 05, 2024 Dr. Annette Holden MD Attending Provider Active Start: October 03, 2024 End: October 05, 2024 Team Status: Active Member Role Status Dates [facility] Primary Care Provider Active Start: October 04, 2024 Dr. Moustapha Jaramillo DO Emergency Provider Active Start: October 04, 2024 Dr. Triny Trinidad MD Admit Provider Active St art: October 04, 2024 Dr. Triny Trinidad MD Other Provider Active St art: October 04, 2024 Dr. Annette Holden MD Attending Provider Active Start: October 04, 2024 Dr. Annette Holden MD Other Provider Active St art: October 04, 2024 Team Status: Active Member Role Status Dates [facility] Primary Care Provider Active Start: October 05, 2024 Dr. Moustapha Jaramillo DO Emergency Provider Active Start: October 05, 2024 Dr. Triny Trinidad MD Admit Provider Active St art: October 05, 2024 Dr. Triny Trinidad MD Other Provider Active St art: October 05, 2024 Dr. Annette Holden MD Attending Provider Active Start: October 05, 2024 Dr. Annette Holden MD Other Provider Active St art: October 05, 2024 Team Status: Inactive Member Role Status Dates [facility] Primary Care Provider Active Start: October 07, 2024 End: October 07, 2024 Dr. Nikolai Barr DO Attending Provider Active Start: October 07, 2024 End: October 07, 2024 Dr. Nikolai Barr DO Emergency Provider Active Start: October 07, 2024 End: October 07, 2024 Team Status: Inactive Member Role Status Dates [facility] Primary Care Provider Active Start: December 21, 2024 End: December 24, 2024 Syd Ronquillo MD Emergency Provider Active Star t: December 21, 2024 End: December 24, 2024 Dr. Allen Caro MD Admit Provider Active Start: December 21, 2024 End: December 24, 2024 Dr. Allen Caro MD Attending Provider Active Start: December 21, 2024 End: December 24, 2024 Dr. Allen Caro MD Referring Provider Active Start: December 21, 2024 End: December 24, 2024 Dr. Delmar Vela MD Other Provider Active St art: December 21, 2024 End: December 24, 2024 Team Status: Active Member Role Status Dates [facility] Primary Care Provider Active Start: December 21, 2024 Syd Ronquillo MD Emergency Provider Active Star t: December 21, 2024 Dr. Delmar Vela MD Attending Provider Active Start: December 21, 2024 Dr. Delmar Vela MD Other Provider Active St art: December 21, 2024 Dr. Allen Caro MD Admit Provider Active Start: December 21, 2024 Dr. Allen Caro MD Referring Provider Active Start: December 21, 2024 Dr. Allen Caro MD Other Provider Active Start: December 21, 2024 Team Status: Active Member Role Status Dates [facility] Primary Care Provider Active Start: December 21, 2024 Dr. Lorenzo Anderson MD Attending Provider Active S tart: December 21, 2024 Team Status: Active Member Role Status Dates [facility] Primary Care Provider Active Start: December 21, 2024 Syd Ronquillo MD Emergency Provider Active Star t: December 21, 2024 Dr. Allen Caro MD Admit Provider Active Start: December 21, 2024 Dr. Allen Caro MD Attending Provider Active Start: December 21, 2024 Dr. Allen Caro MD Other Provider Active Start: December 21, 2024 Dr. Delmar Vela MD Other Provider Active St art: December 21, 2024 Team Status: Active Member Role Status Dates [facility] Primary Care Provider Active Start: December 22, 2024 Syd Ronquillo MD Emergency Provider Active Star t: December 22, 2024 Dr. Allen Caro MD Admit Provider Active Start: December 22, 2024 Dr. Allen Caro MD Attending Provider Active Start: December 22, 2024 Dr. Allen Caro MD Other Provider Active Start: December 22, 2024 Dr. Delmar Vela MD Other Provider Active St art: December 22, 2024 Team Status: Active Member Role Status Dates [facility] Primary Care Provider Active Start: December 22, 2024 Syd Ronquillo MD Emergency Provider Active Star t: December 22, 2024 Dr. Allen Caro MD Admit Provider Active Start: December 22, 2024 Dr. Allen Caro MD Referring Provider Active Start: December 22, 2024 Dr. Allen Caro MD Other Provider Active Start: December 22, 2024 Dr. Delmar Vela MD Other Provider Active St art: December 22, 2024 Dr. Agata Rojas MD Attending Provider Activ e Start: December 22, 2024 Team Status: Active Member Role Status Dates [facility] Primary Care Provider Active Start: December 23, 2024 Syd Ronquillo MD Emergency Provider Active Star t: December 23, 2024 Dr. Allen Caro MD Admit Provider Active Start: December 23, 2024 Dr. Allen Caro MD Referring Provider Active Start: December 23, 2024 Dr. Allen Caro MD Other Provider Active Start: December 23, 2024 Dr. Delmar Vela MD Other Provider Active St art: December 23, 2024 Dr. Agata Rojas MD Attending Provider Activ e Start: December 23, 2024 Team Status: Active Member Role Status Dates [facility] Primary Care Provider Active Start: December 23, 2024 Syd Ronquillo MD Emergency Provider Active Star t: December 23, 2024 Dr. Allen Caro MD Admit Provider Active Start: December 23, 2024 Dr. Allen Caro MD Attending Provider Active Start: December 23, 2024 Dr. Allen Caro MD Other Provider Active Start: December 23, 2024 Dr. Delmar Vela MD Other Provider Active St art: December 23, 2024 Team Status: Active Member Role Status Dates [facility] Primary Care Provider Active Start: December 24, 2024 Syd Ronquillo MD Emergency Provider Active Star t: December 24, 2024 Dr. Allen Caro MD Admit Provider Active Start: December 24, 2024 Dr. Allen Caro MD Attending Provider Active Start: December 24, 2024 Dr. Allen Caro MD Other Provider Active Start: December 24, 2024 Dr. Delmar Vela MD Other Provider Active St art: December 24, 2024 Team Status: Inactive Member Role Status Dates [facility] Primary Care Provider Active Start: January 19, 2025 End: January 19, 2025 Dr. Karlos Osorio MD Attending Provider Active S tart: January 19, 2025 End: January 19, 2025 Dr. Karlos Osorio MD Referring Provider Active S tart: January 19, 2025 End: January 19, 2025 Team Status: Active Member Role Status Dates [facility] Primary Care Provider Active Start: January 19, 2025 Dr. Karlos Osorio MD Attending Provider Active S tart: January 19, 2025 Team Status: Active Member Role/Relationship Status Dates [facility] Primary Care Provider Active Team Status: Inactive Member Role/Relationship Status Dates [facility] Primary Care Provider Active Start: March 01, 2025 End: March 01, 2025 [facility] Referring Provider Active Start: Ap 2024 End: March 01, 2025 BILL Luna Attending Provider Active Star t: March 01, 2025 End: March 01, 2025 Team Status: Inactive Member Role/Relationship Status Dates [facility] Primary Care Provider Active Start: May 30, 2025 End: May 30, 2025 Dr. Facundo Sotomayor MD Emergency Provider Active Sta rt: May 30, 2025 End: May 30, 2025 Team Status: Inactive Member Role/Relationship Status Dates [facility] Primary Care Provider Active Start: May 30, 2025 End: May 30, 2025 Dr. Facundo Sotomayor MD Attending Provider Active Sta rt: May 30, 2025 End: May 30, 2025 Dr. Facundo Sotomayor MD Emergency Provider Active Sta rt: May 30, 2025 End: May 30, 2025 Team Status: Inactive Member Role/Relationship Status Dates [facility] Primary Care Provider Active Start: June 26, 2025 End: June 26, 2025 Dr. Kwadwo Jaime MD Attending Provider Active Start: June 26, 2025 End: June 26, 2025 Dr. Kwadwo Jaime MD Referring Provider Active Start: June 26, 2025 End: June 26, 2025 Team Status: Active Member Role/Relationship Status Dates [facility] Primary care physician Active Team Status: Inactive Member Role/Relationship Status Dates [facility] Primary care physician Active Start : May 30, 2025 End: May 30, 2025 Dr. Facundo Sotomayor MD Attending physician Active St art: May 30, 2025 End: May 30, 2025 Dr. Facundo Sotomayor MD Emergency Department Physician Acti ve Start: May 30, 2025 End: May 30, 2025 Team Status: Inactive Member Role/Relationship Status Dates [facility] Primary care physician Active Start : June 26, 2025 End: June 26, 2025 Dr. Kwadwo Jaime MD Attending physician Active Start: June 26, 2025 End: June 26, 2025 Dr. Kwadwo Jaime MD Referring Provider Active Start: June 26, 2025 End: June 26, 2025 Team Status: Inactive Member Role/Relationship Status Dates [facility] Primary care physician Active Start : August 10, 2025 End: August 10, 2025 Tash Pope NP Attending physician Active Start: August 10, 2025 End: August 10, 2025 Tash Pope NP Referring Provider Active Start: August 10, 2025 End: August 10, 2025 (unrecognized sect ion and content) No Status Records FoundNo Status Records Found INFORMATION SOURCE (unrecogn ized section and content) DATE CREATED AUTHOR 12/05/2024 [facility] DATE CREATED AUTHOR AUTHOR'S KARLO ATION 08/18/2025 [facility] FOR RECORDS PERTAINING TO PATIENTS WHO ARE OR HAVE BEEN ENROLLED IN A CHEMICAL DEPENDENCY/SUBSTANCEABUSE PROGRAM, SOME INFORMATION MAY BE OMITTED. This clinical summary was aggregated from multiple sources. Caution should be exercised in using it in the provision of clinical care. This summary normalizes information from multiple sources, and as a consequence, information in this document may materially change the coding, format and clinical context of patient data. In addition, data may be omitted in some cases. CLINICAL DECISIONS SHOULD BE BASED ON THE PRIMARY CLINICAL RECORDS. [employer] provides no warranty or guarantee of the accuracy or completeness of information in this document.
== END 2024-10-05 11:59 | disposition home or self-care (01) ==
LOC: SDC 12-04 17:27
PROVIDERS: Anesthesiology; Referring Provider Urology; Visit Provider Urology
DX: Z00.00 Encounter for general adult medical examination without abnormal findings (principal)
CPT/HCPCS: 36415; 80048; 83036; 85025

== ENCOUNTER 2024-10-07 08:23 | Emergency (ER) | payer OTHER, SELFPAY ==
[2022-04-22 08:14] VITALS: BMI 30.6
[2024-10-07 08:23] VITALS: BP 132/77; PULSE 65; RESP 14; TEMP 36.2; O2SAT 93; BMI 27.4
--- NOTE | 2024-10-07 08:44 | EKG12_ITS ---
Test Reason : Blood Pressure : */* mmHG Vent. Rate : 62 BPM Atrial Rate : 62 BPM P-R Int : 134 ms QRS Dur : 90 ms QT Int : 418 ms P-R-T Axes : 30 6 44 degrees QTcB Int : 424 ms Normal sinus rhythm Normal ECG Confirmed by Delmar Vela ([id number]), slot editor TERA CAMPBELL ([id number]) on 10/10/2024 11:28:28 AM Referred By: Confirmed By: Delmar Vela
--- NOTE | 2024-10-07 09:00 | EX.ED.DYSGE1 ---
HPI History of Present Illness Chief Complaint: Complaint Informant: patient, spouse/S.O. and family Narrative Narrative: 74-year-old male presenting to the emergency room with inability urinate. Patient states he has a history of enlarged prostate and is post to have a procedure for that. He states that yesterday he was not able to urinate well and today is only urinating small amounts. He notes no vomiting or nausea. He notes a normal bowel movement yesterday. Notes pain diffusely in the abdomen but mostly in the right upper abdomen. He feels bloated/distended. Has a history of an appendectomy no history of bowel obstruction. No reported fever. He takes tamsulosin. He is a diabetic on Plavix. He tells me that he has been having some muscular discomfort in the left chest. [facility] Medical History Osteoporosis Migraines Loss of hearing Rash Insulin dependent diabetes mellitus BPH (benign prostatic hyperplasia) History of ESBL E. coli infection Left ventricular systolic dysfunction (LVSD) Hyperbilirubinemia Transaminitis Hyperglycemia due to type 2 diabetes mellitus Prostate disease Dietary restriction Lipoma of back Sebaceous cyst Aneurysm Anxiety Excessive bleeding Chronic cough History of edema History of stress test History of echocardiogram Degenerative joint disease of hand Hyperlipidemia Benign essential hypertension Wears hearing aid Wears glasses Wears dentures Depression Alcohol use Diabetes History of steroid therapy Arthritis Hepatitis Easy bruising Gastric reflux Shortness of breath on exertion On home oxygen therapy Leg cramps Former smoker Hypertension COPD (chronic obstructive pulmonary disease) Smoking greater than 40 pack years Leukocytosis Home Medications ?Medication ?Instructions ?Recorded ?Last Taken ?Type amlodipine 10 mg tablet 10 mg PO DAILY HTN 12/23/21 10/03/24 History melatonin 3 mg tablet 3 mg PO QHS sleep aid 12/23/21 10/02/24 History multivitamin 1 tab PO DAILY multivitamin 12/23/21 10/03/24 History tamsulosin 0.4 mg capsule 0.4 mg PO QHS urinary retention 12/23/21 10/02/24 History guaifenesin 200 mg tablet 200 mg PO Q4H PRN Cough 02/21/22 Unknown History albuterol sulfate 90 mcg/actuation 1 inh inhalation BID COPD 03/24/22 07/01/23 History aerosol inhaler (Ventolin HFA) fluticasone propionate 50 1 spray intranasal DAILY PRN 04/29/22 06/19/24 History mcg/actuation nasal allergy symptoms spray,suspension pantoprazole 20 mg tablet,delayed 20 mg PO DAILY GERD 04/29/22 10/03/24 History release glipizide 10 mg tablet 10 mg PO BID Diabetes 04/29/23 10/03/24 History potassium chloride 20 mEq 20 meq PO BID potassium #6 tabs 06/16/23 10/03/24 Rx tablet,extended release(part/cryst) primidone 50 mg tablet (Mysoline) 50 mg PO QHS primidone 05/05/24 10/02/24 History blood sugar diagnostic (Accu-Chek #100 ea 06/28/24 Unknown Rx Guide test strips) blood-glucose meter (Accu-Chek #1 ea 06/28/24 Unknown Rx Guide Glucose Meter) carvedilol 3.125 mg tablet 3.125 mg PO BID blood pressure 30 06/28/24 10/03/24 Rx days #60 tabs clopidogrel 75 mg tablet 75 mg PO DAILY anti platelet 30 06/28/24 10/03/24 Rx days #30 tabs lancets #200 ea 06/28/24 Unknown Rx lisinopril 2.5 mg tablet 2.5 mg PO DAILY blood pressure 30 06/28/24 Unknown Rx days #30 tabs atorvastatin 40 mg tablet 40 mg PO DAILY cholesterol 10/03/24 10/03/24 History insulin glargine-yfgn 100 unit/mL 16 unit subcut BID diabetes 10/03/24 10/03/24 History (3 mL) subcutaneous pen insulin lispro 100 unit/mL 1 sliding scale dose subcut ACHS 10/03/24 10/03/24 History subcutaneous pen (Humalog KwikPen diabetes (U-100) Insulin) ipratropium 0.5 mg-albuterol 3 mg 3 ml inhalation Q6H PRN COPD with 10/03/24 Unknown History (2.5 mg base)/3 mL nebulization exacerbation soln nystatin 100,000 unit/gram topical 1 applic topical BID PRN skin 10/03/24 Unknown History powder (Nyamyc) irritation prednisone 20 mg tablet 40 mg (2 x 20 mg) PO DAILY #10 tabs 10/05/24 Unknown Rx doxycycline monohydrate 100 mg 100 mg PO BID #14 CAPSULES 10/07/24 Unknown Rx capsule magnesium citrate 300 ml PO X1 #2 BOTTLES 10/07/24 Unknown Rx Allergy/AdvReac Type Severity Reaction Status Date / Time No Known Allergies Allergy Verified 10/07/24 08:23 Family History Father Cancer Heart disease Mother Heart disease Myocardial infarction Surgical History History of excision of mass History of cataract surgery History of esophagogastroduodenoscopy (EGD) Hx of colonoscopy History of hand surgery Hx of appendectomy H/O wrist surgery Social History household members: significant other Smoking Status: Former smoker quit date: 09/26/21 pack-years: 90 Tobacco: How many years used: 60 alcohol intake: former substance use type: does not use ROS ROS ED Constitutional Constitutional ED: Denies chills or weight loss Eyes Eyes: Denies change in vision or diplopia ENT ENT ED: Denies ear pain, rhinorrhea or sore throat Cardiovascular Cardiovascular: Reports chest pain; Denies orthopnea, palpitations or racing heartbeat Respiratory/Chest Respiratory/Chest: Denies cough, dyspnea or orthopnea Gastrointestinal Gastrointestinal: Reports abdominal pain and other Details: Abdominal distention ; Denies diarrhea, nausea or vomiting Genitourinary Genitourinary ED: Reports other Details: Decreased ability to urinate ; Denies dysuria, hematuria or urinary frequency Musculoskeletal Musculoskeletal: Denies arthralgias or myalgias Integumentary Denies abscess or rash Neurologic Neurologic: Denies headache(s) or weakness Psychiatric Psychiatric: Denies anxiety, depression, suicidal ideation or suicidal thoughts Endocrine Endocrinology: Denies polydipsia, polyphagia or polyuria Allergic/Immunologic Allergic/Immunologic ED: Denies mouth swelling, tongue swelling or urticaria EXAM Physical Exam Const Vital Signs: 10/07/24 08:23 10/07/24 10:43 Temperature 97.2 F L 97.8 F Temperature Source Temporal Oral Pulse Rate 65 82 Respiratory Rate 14 15 Blood Pressure 132/77 H 138/79 H Blood Pressure Mean 95 98 Pulse Ox 93 96 Oxygen Delivery Method Room Air Room Air Positive well nourished and well developed General Appearance ED: well developed and NAD HEENT Reports normocephalic, head/scalp atraumatic and moist mucous membranes Eyes PERRL and EOMs intact bilaterally Neck no lymphadenopathy, supple and no JVD Resp normal respiratory effort and clear to auscultation bilaterally Cardio regular rate, regular rhythm and no murmurs GI Inspection: abdominal distention Palpation: soft and tender other (Diffuse but greatest towards the right upper quadrant); Negative for guarding or rebound tenderness present Back/Spine no CVA tenderness and normal ROM Extremity normal to inspection General Extremety ED: Negative for edema General Extremity: Negative for edema Neuro oriented x3 and CN's II-XII intact bilaterally Sensorium / Orientation: alert Motor Exam: strength 5/5 throughout Psych mental status grossly normal Mood & Affect: Negative for depressed or tearful Skin no rashes or lesions noted and no wounds MDM MDM MDM Narrative Medical decision making narrative: Differential diagnosis includes but not limited to acute urinary retention UTI bowel obstruction constipation volvulus obstructive uropathy/renal dysfunction sepsis White count 11.7 hemoglobin 16.6 platelet count 365. Creatinine normal 0.99 BUN of 22 normal electrolytes. Liver LFTs are normal lipase 137. Urinalysis is negative nitrates greater than 100 white cells positive leukocyte Estrace no bacteria seen this was sent for culture. CT abdomen pelvis was obtained. This was read by radiology reviewed by myself. Clinically he does not fit the picture of acute pyelonephritis. He has no CVA tenderness no fever no nausea vomiting. He does have a history of ESBL with greater than 100 white cells in the urine but no bacteria. I can place him on doxycycline. Looking at his CT he has a tremendous amount of stool in the right hemicolon. This could be source of some of his right-sided abdominal discomfort. I will be writing for some magnesium citrate. Patient will be discharged and patient and family are comfortable with this plan. Return if worsening or concerns History & Record Review Discussion w/independent historian: Patient, Family and Significant other Additional record(s) reviewed:: Prior inpatient record, Prior ED visit and Prior labs Lab Data Attestation: I reviewed the patient's lab results. Labs: Laboratory Results - last 24 hr 10/07/24 10/07/24 08:56 09:00 WBC 11.7 H RBC 5.16 Hgb 16.6 H Hct 49.0 MCV 95.0 H MCH 32.2 H MCHC 33.9 RDW Std Deviation 51.8 H RDW Coeff of Tarik 14.6 Plt Count 365 MPV 9.4 Immature Gran % (Auto) 0.900 Neut % (Auto) 68.1 Lymph % (Auto) 16.3 L [place] % (Auto) 7.8 Eos % (Auto) 6.1 H Baso % (Auto) 0.8 Absolute Neuts (auto) 8.0 H Absolute Lymphs (auto) 1.91 Nucleated RBC % 0.2 Sodium 138 Potassium 4.4 Chloride 108 H Carbon Dioxide 24.0 Anion Gap 6 BUN 22 H Creatinine 0.99 Estim Creat Clear Calc 68.67 Est GFR (MDRD) Af Amer 95 Est GFR (MDRD) Non-Af 78 BUN/Creatinine Ratio 22.2 H Glucose 98 Calcium 9.0 Total Bilirubin 0.70 Direct Bilirubin 0.14 AST 35 ALT 46 Alkaline Phosphatase 112 Troponin I High Sens 9 Total Protein 7.4 Albumin 3.5 Globulin 3.9 Lipase 137 H Urine Color Yellow Urine Clarity Sl. Cloudy Urine pH 6.5 Ur Specific [place] 1.005 Urine Protein 30 H Urine Glucose (UA) 1000 H Urine Ketones Negative Urine Occult Blood 150 H Urine Nitrite Negative Urine Bilirubin Negative Urine Urobilinogen Normal Ur Leukocyte Esterase 500 H Urine RBC 0 SEEN Urine WBC >100 SEEN Ur Squamous Epith Cells 0 SEEN Urine Bacteria 0 SEEN Urine Mucus 0 SEEN Radiography Diagnostic Testing: Clinical Impression(s) from Imaging Studies Abdomen/Pelvis CT 10/07/24 09:43 IMPRESSION: 1.No stones or hydronephrosis in both kidneys but there is abnormal thickening of the houser of the bilateral renal pelvis and both ureters worrisome for infection until proven otherwise. 2.Multiple indeterminate pulmonary nodules in the lung bases. These were present previously on CT abdomen and pelvis of 10/03/2024. These were also present on the CTA chest of 06/23/2024 but were not mentioned. Inflammatory versus pulmonary metastatic disease. Follow-up baseline CT chest will be very helpful for further evaluation. Electronically Signed: Syd Herrera MD at 10:31 EST , EKG Initial EKG: Attestation: I personally reviewed and interpreted this EKG as follows: Comments: Normal sinus rhythm ventricular rate of 62 bpm Discharge Plan Triage Chief Complaint: Complaint ED Provider: Nikolai Barr Dx/Rx/DC Orders Clinical Impression: Acute constipation, Abdominal pain, Acute urinary retention Instructions: ED Urinary Retention, Male Prescriptions: New doxycycline monohydrate 100 mg capsule 100 mg PO BID Qty: 14 0RF magnesium citrate Solution 300 ml PO X1 Qty: 2 0RF Rx Instructions: May repeat in 12 hours if no large bowel movement No Action glipizide 10 mg tablet 10 mg PO BID multivitamin Tablet 1 tab PO DAILY melatonin 3 mg Tablet 3 mg PO QHS tamsulosin 0.4 mg Capsule 0.4 mg PO QHS amlodipine 10 mg Tablet 10 mg PO DAILY guaifenesin 200 mg Tablet 200 mg PO Q4H PRN (Reason: Cough) albuterol sulfate [Ventolin HFA] 90 mcg/actuation HFA aerosol inhaler 1 inh inhalation BID pantoprazole 20 mg Tablet,Delayed Release (Dr/Ec) 20 mg PO DAILY fluticasone propionate 50 mcg/actuation [place],Suspension 1 spray INTRANASAL DAILY PRN (Reason: allergy symptoms) Rx Instructions: administer into each nostril primidone [Mysoline] 50 mg tablet 50 mg PO QHS clopidogrel 75 mg Tablet 75 mg PO DAILY 30 Days Qty: 30 0RF carvedilol 3.125 mg Tablet 3.125 mg PO BID 30 Days Qty: 60 0RF (DME) blood-glucose meter [Accu-Chek Guide Glucose Meter] Misc See Rx Instructions .Route Qty: 1 0RF Rx Instructions: As directed with ACHS checks for ISS and also PRN (DME) Accu-Chek Guide test strips Strip See Rx Instructions .Route Qty: 100 0RF Rx Instructions: As directed, may substitute test strips to match patient machine. Use ACHS and PRN. (DME) lancets Misc See Rx Instructions .Route Qty: 200 0RF Rx Instructions: As directed for obtaining ACHS and PRN accu checks. lisinopril 2.5 mg Tablet 2.5 mg PO DAILY 30 Days Qty: 30 0RF atorvastatin 40 mg tablet 40 mg PO DAILY ipratropium-albuterol 0.5 mg-3 mg(2.5 mg base)/3 mL Solution For Nebulization 3 ml inhalation Q6H PRN (Reason: COPD with exacerbation) nystatin [Nyamyc] 100,000 unit/gram Powder 1 applic topical BID PRN (Reason: skin irritation) Protocol: *Topical Application Instructions APPLICATION INSTRUCTIONS: axillary Rx Instructions: Cleanse affected skin with soap/water, pat dry and then apply powder. insulin lispro [Humalog KwikPen Insulin] 100 unit/mL Insulin Pen 1 sliding scale dose subcut ACHS Protocol: 3. Sliding Scale Insulin Med Dosing Condition: 150-189 mg/dl = 1 unit Condition: 190-229 mg/dl = 2 units Condition: 230-269 mg/dl = 3 units Condition: 270-309 mg/dl = 4 units Condition: 310-349 mg/dl = 5 units Condition: 350-399 mg/dl = 6 units Condition: 400-449 mg/dl = 7 units Condition: Greater than 449 call physician Protocol Text: Suggested for: - Patients on Total Daily Insulin Dose of 37-55 units - Obese, infected, or steroid patients MEDIUM DOSING ALGORITHIM insulin glargine-yfgn 100 unit/mL (3 mL) Insulin Pen 16 unit subcut BID Rx Instructions: Please continue insulin as rx; however, when you finish your steroid therapy for COPD exacerbation, the regimen may need decreased. Please monitor your blood sugars and closely follow with your PCP. prednisone 20 mg tablet 40 mg PO DAILY Qty: 10 0RF potassium chloride 20 mEq tablet,ER particles/crystals 20 meq PO BID Qty: 6 0RF Primary Care Provider: [place] Referrals: Kwadwo Kyle MD [Med Staff - Active Staff] - As soon as possible [facility] [Primary Care Provider] - As soon as possible Print Language: Citizen Of [place] Disposition Disposition: Home, Self Care
[2024-10-07 09:11] LABS: Bacteria 0 SEEN /hpf (None Seen); Mucous, Urine 0 SEEN /hpf (<or=2+); Red Blood Cells-Urine 0 SEEN /hpf (0-5); Squamous Epithelial Cells - UA 0 SEEN /hpf (0-5)
[2024-10-07 09:13] LABS: Absolute Lymphocyte Count 1.91 X10^3/uL (0.83-4.51); Basophil# 0.09 X10^3/uL; Basophil% 0.8 % (0-1); Eosinophil# 0.71 X10^3/uL; Eosinophils% 6.1 % (0-5); Hemoglobin 16.6 g/dL (13.0-16.5); Lymphocyte # 1.91 X10^3/ul (0.83-4.51); Lymphocyte % 16.3 % (19-41); Mean Corp Hgb Conc 33.9 g/dL (32-36); Mean Corpuscular Hgb 32.2 pg (27.0-32.0); Mean Platelet Vol. 9.4 fl (6.2-12.0); Monocyte# 0.92 X10^3/uL; Monocyte% 7.8 % (0-10); NRBC Flagged by Analyzer 0.2 % (0-5); Neutrophil # 7.98 X10^3/uL (2.7-7.7); Neutrophil % 68.1 % (47-70); Platelet Count 365 K/mm3 (150-450); RBC Distribution Width CV 14.6 % (11.6-14.6); RBC Distribution Width SD 51.8 fl (35.1-43.9); Red Blood Count 5.16 M/mm3 (4.6-6.2); White Blood Count 11.7 K/mm3 (4.4-11.0)
[2024-10-07 09:35] LABS: Color, Urine Yellow (Yellow); Glucose, Dipstick 1000 mg/dl (Normal); Ketone-Dipstick Negative (Negative); Leukocyte Esterase-Dipstick 500 /ul (Negative); Nitrite-Dipstick Negative (Negative); Occult Blood-Urine 150 /ul (Negative); Protein-Dipstick 30 mg/dl (Negative); Specific Gravity, Urine 1.005 (1.002-1.030); Urine Bilirubin Dipstick Negative (Negative); Urine Clarity Sl. Cloudy (Clear); Urine Urobilinogen Normal (Normal); Urine pH 6.5 (5.0 - 8.0)
[2024-10-07 09:40] LABS: White Blood Cells >100 SEEN /hpf (0-5)
[2024-10-07 09:42] LABS: AST(SGOT) 35 U/L (15-37); Alanine Aminotransfer ALT/SGPT 46 U/L (16-61); Albumin, Serum 3.5 g/dL (3.2-5.0); Alkaline Phosphatase 112 U/L (45-117); Anion Gap 6 (5-15); BUN 22 mg/dL (7-18); BUN/Creat Ratio 22.2 RATIO (10-20); Bilirubin, Direct 0.14 mg/dL (0.00-0.30); Chloride 108 mmol/L (98-107); Creatinine, Serum 0.99 mg/dL (0.70-1.30); EST Glomerular Filtration Rate 78 mL/min (>60); Est Glom Filt Rate - Afr Amer 95 mL/min (>60); Estimated Creatinine Clearance 68.67 ml/min; Globulin 3.9 g/dL (2.2-4.2); Glucose 98 mg/dL (74-106); Lipase 137 U/L (13-75); Potassium 4.4 mmol/L (3.5-5.1); Protein, Total 7.4 g/dL (6.4-8.2); Sodium Level 138 mmol/L (136-145); Troponin-I HS 9 pg/mL (3.0-78.0)
--- NOTE | 2024-10-07 09:43 | CT_ITS ---
EXAM: CT ABDOMEN AND PELVIS WITH INTRAVENOUS CONTRAST CLINICAL INDICATION: pyelonephritis obstructive uropathy TECHNIQUE: Helically acquired images were obtained of the abdomen and pelvis with intravenous contrast. This CT exam was performed using one or more of the following dose reduction techniques: automated exposure control, adjustment of the mA and/or kV according to patient size, and/or use of iterative reconstruction technique. CONTRAST: IV 100mL Isovue-370 RADIATION DOSE: CTDIvol = 22.15 mGy, DLP = 1011.96 mGy-cm COMPARISON: CT abdomen and pelvis with IV contrast 10/03/2024. FINDINGS: LOWER THORAX: 6 mm perifissural nodule underneath the medial surface of the left anterior lung base is unchanged (series 2, image 11). At least 3 noncalcified and indeterminate pulmonary nodules measuring 3 mm in the right lower lobe and 3 mm noncalcified and indeterminate pulmonary nodule in the left peripheral lung base. These were present previously. Partial atelectasis with air bronchograms in the right anterior lung base is a new finding. Small calcified granuloma in the left posterior lower lobe. Curvilinear subpleural atelectasis in the posterior lung bases. Prominent paraseptal cysts in the medial surface of the right lung base. Small hiatal hernia. No cardiomegaly. No significant pericardial effusion. ABDOMEN: LIVER: Unremarkable. Homogeneous. No focal mass. GALLBLADDER AND BILE DUCTS: Unremarkable. No calcified gallstones. No gallbladder distention or wall edema. No intra- or extrahepatic biliary ductal dilation. PANCREAS: Unremarkable. No focal cystic or solid mass. SPLEEN: Unremarkable. Normal size without focal cystic or solid mass. ADRENALS: Unremarkable. No nodules. KIDNEYS AND URETERS: Unremarkable. Normal renal size and position. No stones or hydronephrosis in both kidneys but there is abnormal thickening of the houser of the bilateral renal pelvis and both ureters worrisome for infection. STOMACH AND BOWEL: Unremarkable. No stomach or bowel distention. No focal inflammatory change. PELVIS: APPENDIX: The appendix is not visualized but there are no secondary signs of acute appendicitis. BLADDER: Indwelling Briggs catheter inside the empty urinary bladder. REPRODUCTIVE: Enlarged central lobe of the prostate gland is at least BPH. ABDOMEN and PELVIS: INTRAPERITONEAL SPACE: Unremarkable. No ascites or other fluid collection. No free air. BONES/JOINTS: Unremarkable. No acute fractures or remote fractures of the osseous elements of the abdomen and pelvis. No lytic or blastic lesions. SOFT TISSUES: Unremarkable. No discrete abdominal or pelvic wall hernia. VASCULATURE: Heavy calcified plaques along the abdominal aorta and iliac arteries. Crescentic intramural thrombus in the anterior wall of the ectatic infrarenal abdominal aorta. LYMPH NODES: Unremarkable. No enlarged lymph nodes. CT/Abdomen/Pelvis W IV Cont ONLY IMPRESSION: 1.No stones or hydronephrosis in both kidneys but there is abnormal thickening of the houser of the bilateral renal pelvis and both ureters worrisome for infection until proven otherwise. 2.Multiple indeterminate pulmonary nodules in the lung bases. These were present previously on CT abdomen and pelvis of 10/03/2024. These were also present on the CTA chest of 06/23/2024 but were not mentioned. Inflammatory versus pulmonary metastatic disease. Follow-up baseline CT chest will be very helpful for further evaluation. Electronically Signed: Syd Herrera MD at 10:31 EST ,
[2024-10-07 10:43] VITALS: BP 138/79; PULSE 82; RESP 15; TEMP 36.6; O2SAT 96
[2024-10-07 11:16] VITALS: BP 127/88; PULSE 72; RESP 15; TEMP 36.4; O2SAT 95
--- NOTE | 2024-10-09 08:58 | ED.RN ---
Dr Aponte looked at pts urine culture and per him, no change in treatment.
== END 2024-10-07 11:17 | disposition home or self-care (01) ==
PROVIDERS: Emergency Provider Emergency Medicine; Visit Provider Emergency Medicine
DX: K59.00 Constipation, unspecified (principal); J44.9 Chronic obstructive pulmonary disease, unspecified; E11.9 Type 2 diabetes mellitus without complications; Z79.4 Long term (current) use of insulin; N40.1 Benign prostatic hyperplasia with lower urinary tract symptoms; R33.8 Other retention of urine; I10 Essential (primary) hypertension; E78.5 Hyperlipidemia, unspecified; Z90.49 Acquired absence of other specified parts of digestive tract; Z79.02 Long term (current) use of antithrombotics/antiplatelets; Z79.51 Long term (current) use of inhaled steroids; Z79.84 Long term (current) use of oral hypoglycemic drugs; Z79.899 Other long term (current) drug therapy; Z87.891 Personal history of nicotine dependence
CPT/HCPCS: 51702; 74177; 80048; 80076; 81001; 83690; 84484; 85025; 87086; 87088; 87186; 93005; 99284; Q9967; A4216

== ENCOUNTER 2024-12-21 09:01 | Inpatient (IN) | payer OTHER, SELFPAY ==
[2022-04-22 08:14] VITALS: BMI 30.6
[2024-12-21] VITALS (10 sets, daily range): BP systolic 102–123; BP diastolic 70–97; PULSE 88–142; RESP 18–33; TEMP 36.8–37.6; O2SAT 88–99; BMI 27.2; BMI 26.0
--- NOTE | 2024-12-21 09:34 | CT_ITS ---
EXAM: Noncontrasted CT of the head, with sagittal and coronal reconstructed images CLINICAL HISTORY: Trauma. COMPARISON: Head CT of 07/04/2024 TECHNIQUE: CT head without contrast, with sagittal coronal reconstructed images. FINDINGS: Stable old left basal ganglia lacunar infarction. No intracranial hemorrhage, mass, or mass effect is seen. No extra-axial fluid collection is noted. Ventricles appear unchanged. No orbital pathology is noted. The paranasal sinuses appear clear, as do the mastoid air cells. CT/Brain/Head without Contrast IMPRESSION: No intracranial hemorrhage or other acute process is noted. Stable examination . Reading Location: [id number]
--- NOTE | 2024-12-21 09:34 | CT_ITS ---
EXAM: CT Cervical Spine Without Intravenous Contrast CLINICAL INDICATION: TECHNIQUE: Axial computed tomography images of the cervical spine without intravenous contrast. This CT exam was performed using one or more of the following dose reduction techniques: automated exposure control, adjustment of the mA and/or kV according to patient size, and/or use of iterative reconstruction technique. COMPARISON: No relevant prior studies available. FINDINGS: VERTEBRAE: Degenerative facet arthropathy throughout the cervical spine. No acute fracture. DISCS/SPINAL CANAL/NEURAL FORAMINA: Degenerative disc disease lower cervical spine. SOFT TISSUES: Unremarkable. CT/Spine Cervical without Contras IMPRESSION: 1. No acute fracture. 2. Degenerative changes cervical spine as described. Reading Location[facility]
[2024-12-21 09:35] LABS: Bedside Glucose 278 mg/dL (74-106)
--- NOTE | 2024-12-21 09:35 | EKG12_ITS ---
Test Reason : Blood Pressure : */* mmHG Vent. Rate : 120 BPM Atrial Rate : * BPM P-R Int : * ms QRS Dur : 72 ms QT Int : 316 ms P-R-T Axes : * 21 37 degrees QTcB Int : 446 ms Atrial fibrillation with rapid ventricular response Nonspecific ST abnormality Abnormal ECG Confirmed by ADAM PRATHER, JORDON ([id number]), fashion editor TERA CAMPBELL ([id number]) on 12/23/2024 12:55:25 PM Referred By: Allen Caro Confirmed By: JORDON MEDINA MD
--- NOTE | 2024-12-21 09:36 | ED.VIS.FALL ---
HPI HPI - Fall History of Present Illness Chief Complaint: Fall Narrative Narrative: 74-year-old male past medical history of diabetes presents via EMS status post fall out of bed. Per EMS, he had a low blood sugar when they had arrived. He complains of neck pain and left shoulder pain. He states that he was trying to get out of bed, and he swung his feet around, but could not sit straight up. He fell onto his left shoulder. He denies hitting his head or loss of consciousness but complains of neck pain as well as left clavicular pain and left shoulder pain. Additionally, they found the patient to be in atrial fibrillation. He denies any history of A-fib of which she is aware. However, he does state that he has been short of breath for the last few months as well. He does have history of COPD and sleep apnea. Admittedly, he last ate dinner at around 6 PM but states he has not been eating as much because he has decreased appetite. He denies any nausea or vomiting, no other symptoms. Pain in his clavicle and shoulder is worse with movement of his left arm. His right hand dominant. PFSH [facility] Medical History ESBL (extended spectrum beta-lactamase) producing bacteria infection Osteoporosis Migraines Loss of hearing Rash Insulin dependent diabetes mellitus BPH (benign prostatic hyperplasia) History of ESBL E. coli infection Left ventricular systolic dysfunction (LVSD) Hyperbilirubinemia Transaminitis Hyperglycemia due to type 2 diabetes mellitus Prostate disease Dietary restriction Lipoma of back Sebaceous cyst Aneurysm Anxiety Excessive bleeding Chronic cough History of edema History of stress test History of echocardiogram Degenerative joint disease of hand Hyperlipidemia Benign essential hypertension Wears hearing aid Wears glasses Wears dentures Depression Alcohol use Diabetes History of steroid therapy Arthritis Hepatitis Easy bruising Gastric reflux Shortness of breath on exertion On home oxygen therapy Leg cramps Former smoker Hypertension COPD (chronic obstructive pulmonary disease) Smoking greater than 40 pack years Leukocytosis Home Medications ?Medication ?Instructions ?Recorded ?Last Taken ?Type amlodipine 10 mg tablet 10 mg PO DAILY HTN 12/23/21 10/03/24 History melatonin 3 mg tablet 3 mg PO QHS sleep aid 12/23/21 10/02/24 History multivitamin 1 tab PO DAILY multivitamin 12/23/21 10/03/24 History tamsulosin 0.4 mg capsule 0.4 mg PO QHS urinary retention 12/23/21 10/02/24 History guaifenesin 200 mg tablet 200 mg PO Q4H PRN Cough 02/21/22 Unknown History albuterol sulfate 90 mcg/actuation 1 inh inhalation BID COPD 03/24/22 07/01/23 History aerosol inhaler (Ventolin HFA) fluticasone propionate 50 1 spray intranasal DAILY PRN 04/29/22 06/19/24 History mcg/actuation nasal allergy symptoms spray,suspension pantoprazole 20 mg tablet,delayed 20 mg PO DAILY GERD 04/29/22 10/03/24 History release glipizide 10 mg tablet 10 mg PO BID Diabetes 04/29/23 10/03/24 History potassium chloride 20 mEq 20 meq PO BID potassium #6 tabs 06/16/23 10/03/24 Rx tablet,extended release(part/cryst) primidone 50 mg tablet (Mysoline) 50 mg PO QHS primidone 05/05/24 10/02/24 History blood sugar diagnostic (Accu-Chek #100 ea 06/28/24 Unknown Rx Guide test strips) blood-glucose meter (Accu-Chek #1 ea 06/28/24 Unknown Rx Guide Glucose Meter) carvedilol 3.125 mg tablet 3.125 mg PO BID blood pressure 30 06/28/24 10/03/24 Rx days #60 tabs clopidogrel 75 mg tablet 75 mg PO DAILY anti platelet 30 06/28/24 10/03/24 Rx days #30 tabs lancets #200 ea 06/28/24 Unknown Rx lisinopril 2.5 mg tablet 2.5 mg PO DAILY blood pressure 30 06/28/24 Unknown Rx days #30 tabs atorvastatin 40 mg tablet 40 mg PO DAILY cholesterol 10/03/24 10/03/24 History insulin glargine-yfgn 100 unit/mL 16 unit subcut BID diabetes 10/03/24 10/03/24 History (3 mL) subcutaneous pen insulin lispro 100 unit/mL 1 sliding scale dose subcut ACHS 10/03/24 10/03/24 History subcutaneous pen (Humalog KwikPen diabetes (U-100) Insulin) ipratropium 0.5 mg-albuterol 3 mg 3 ml inhalation Q6H PRN COPD with 10/03/24 Unknown History (2.5 mg base)/3 mL nebulization exacerbation soln nystatin 100,000 unit/gram topical 1 applic topical BID PRN skin 10/03/24 Unknown History powder ([facility]) irritation prednisone 20 mg tablet 40 mg (2 x 20 mg) PO DAILY #10 tabs 10/05/24 Unknown Rx magnesium citrate 300 ml PO X1 #2 BOTTLES 10/07/24 Unknown Rx Allergy/AdvReac Type Severity Reaction Status Date / Time No Known Allergies Allergy Verified 12/21/24 09:08 Family History Father Cancer Heart disease Mother Heart disease Myocardial infarction Surgical History History of excision of mass History of cataract surgery History of esophagogastroduodenoscopy (EGD) Hx of colonoscopy History of hand surgery Hx of appendectomy H/O wrist surgery Social History household members: significant other Smoking Status: Former smoker quit date: 09/26/21 pack-years: 90 Tobacco: How many years used: 60 alcohol intake: former substance use type: does not use ROS ROS ED ROS Narrative Review of systems positive for neck pain, left clavicular and left shoulder pain. Positive shortness of breath times months. Denies chest pain, no recent fevers or chills. No nausea or vomiting. No palpitations. EXAM Physical Exam Narrative Exam Narrative: GCS 15. ABCs are intact. Head is normocephalic and atraumatic. No vertebral point tenderness or bony step-off of neck. Full range of motion of neck. PERRL, EOMI. There is mild mid left clavicular to distal tenderness but no crepitance. Diffuse tenderness to palpation left shoulder. Uninjured at elbow and below. Palpable radial pulse. Able to oppose thumb. Cardiovascular examination reveals an irregularly irregular tachycardia. Occasional rhonchi with expiratory wheezing consistent with COPD on lung auscultation. Neurological examination is otherwise nonfocal and nonlateralizing. He is awake, alert, and appropriately interactive. Const Vital Signs: 12/21/24 09:02 12/21/24 09:12 12/21/24 11:02 Temperature 99.7 F H Temperature Source Oral Pulse Rate 142 H 108 H Respiratory Rate 26 H 33 H Respiratory Effort Short of Breath Respiratory Depth Deep Respiratory Pattern Tachypnea Blood Pressure 108/70 113/79 Blood Pressure Mean 82 90 Pulse Ox 94 94 93 Oxygen Delivery Method Room Air Room Air 12/21/24 11:31 12/21/24 11:44 Temperature 98.2 F Temperature Source Pulse Rate 104 H 104 H Respiratory Rate 20 H 20 H Respiratory Effort Respiratory Depth Respiratory Pattern Normal Blood Pressure 123/87 H Blood Pressure Mean 99 Pulse Ox 99 Oxygen Delivery Method MDM MDM MDM Narrative Medical decision making narrative: Differential diagnosis includes but not limited to intracranial hemorrhage versus neck fracture versus shoulder fracture versus contusion versus clavicular fracture. He may also have new onset atrial fibrillation. Comprehensive workup was pursued. His current ywrto-[id number] glucose is 278 as he had been given glucose by EMS. He was hypoglycemic most likely secondary to him receiving his insulin which he states his administers and is decreased p.o. intake. EKG was obtained and interpreted by myself independently as atrial fibrillation with rapid ventricular response at [address] changes. No STEMI. I reviewed his laboratory work and he has elevated white count of 14.7 which I think is nonspecific, hemoglobin stable at 13.9, hematocrit 40.7, platelet count 236. Electrolyte panel shows sodium slightly low at 130 with hypokalemia of 3.3. BUN of 12 and creatinine 1.03. Glucose is elevated appropriately at 257 currently. High-sensitivity troponin is 46. As part of the workup for what I suspect is new onset atrial fibrillation, TSH obtained and is 0.76. Repeat glucose at 1018 is 297. I reviewed the radiology report of the CT of the brain of the CT of the cervical spine which shows no evidence of acute intracranial hemorrhage or vertebral fracture. X-ray of the left clavicle and of the left shoulder interpreted by myself independently shows no evidence of an acute fracture. There are degenerative changes of the acromioclavicular joint. I reviewed the radiology reports for both of these x-rays which confirms my independent interpretation. Additionally, on my independent interpretation of the chest x-ray, there is no consolidation, no pneumothorax. I do not feel antibiotics are indicated. I reviewed the radiology report which confirms my independent interpretation. As I do feel that this is new onset atrial fibrillation after review of his previous EMR and there is no mention of atrial fibrillation, I discussed the patient with Dr. Delmar Vela with cardiology. He suggested changing him to metoprolol tartrate 25 mg, and starting him on Eliquis 5 mg twice daily. Plavix and carvedilol should be stopped. He has seen the patient in the emergency department, and now recommends bringing the patient in as he has wheezing with his history of COPD. Patient will be given an aerosolized treatment and patient discussed with the hospitalist for admission. I discussed the patient with Dr. Caro for full admission to the PCU. Patient is in stable condition. History & Record Review Discussion w/independent historian: Patient Lab Data Attestation: I reviewed the patient's lab results. Labs: Laboratory Results - last 24 hr 12/21/24 12/21/24 12/21/24 09:00 09:16 10:18 WBC 14.7 H RBC 4.58 L Hgb 13.9 Hct 40.7 MCV 88.9 MCH 30.3 MCHC 34.2 RDW Std Deviation 46.0 H RDW Coeff of Tarik 14.3 Plt Count 236 MPV 10.3 Sodium 130 L Potassium 3.3 L Chloride 95 L Carbon Dioxide 25.0 Anion Gap 10 BUN 12 Creatinine 1.03 Estim Creat Clear Calc 66.00 Est GFR (MDRD) Af Amer 91 Est GFR (MDRD) Non-Af 75 BUN/Creatinine Ratio 11.7 Glucose 257 H Calcium 8.5 Total Bilirubin 1.00 AST 68 H ALT 69 H Alkaline Phosphatase 169 H Troponin I High Sens 46 Total Protein 7.0 Albumin 2.8 L Globulin 4.2 Albumin/Globulin Ratio 0.7 L TSH 0.767 POC Glucose 278 H 297 H Radiography Chest X-Ray - ED: Read by ED Physician and Read by Radiologist X-Ray: Read by ED Physician and Read by Radiologist Diagnostic Testing: Clinical Impression(s) from Imaging Studies Brain CT 12/21/24 09:34 IMPRESSION: No intracranial hemorrhage or other acute process is noted. Stable examination. Reading Location: [id number] Cervical Spine CT 12/21/24 09:34 IMPRESSION: 1. No acute fracture. 2. Degenerative changes cervical spine as described. Reading [facility] Chest X-Ray 12/21/24 10:00 IMPRESSION: Stable examination, without evidence of acute cardiopulmonary disease Reading Location: [id number] Clavicle X-Ray 12/21/24 10:00 IMPRESSION: Moderate left acromioclavicular joint degenerative changes are seen, with significant associated joint narrowing. Elsewhere in the left clavicle, no significant finding is noted. The left glenohumeral joint demonstrates mild degenerative changes. No acute fracture or dislocation is seen. If clinical concern persists, short-term follow-up imaging may be obtained to rule out a currently occult fracture. Reading Location: [id number] Shoulder X-Ray 12/21/24 10:00 IMPRESSION: Moderate left acromioclavicular joint degenerative changes are seen, with significant associated joint narrowing. Elsewhere in the left clavicle, no significant finding is noted. The left glenohumeral joint demonstrates mild degenerative changes. No acute fracture or dislocation is seen. If clinical concern persists, short-term follow-up imaging may be obtained to rule out a currently occult fracture. Reading Location: [id number] Management Discussion w/another healthcare provider: Hospitalist (Dr. Caro) and Hematology Oncology Consultant (Dr. Delmar Vela, cardiology) Discharge Plan Dx/Rx/DC Orders Clinical Impression: New onset atrial fibrillation, COPD with acute exacerbation, Hypokalemia, Hypoglycemia associated with diabetes Disposition Disposition: Acute Care Hospital [facility]
[2024-12-21 09:46] LABS: Hematocrit 40.7 % (40-54); Hemoglobin 13.9 g/dL (13.0-16.5); Mean Corp Hgb Conc 34.2 g/dL (32-36); Mean Corpuscular Hgb 30.3 pg (27.0-32.0); Mean Corpuscular Volume 88.9 fL (80-94); Mean Platelet Vol. 10.3 fl (6.2-12.0); Platelet Count 236 K/mm3 (150-450); RBC Distribution Width CV 14.3 % (11.6-14.6); Red Blood Count 4.58 M/mm3 (4.6-6.2); White Blood Count 14.7 K/mm3 (4.4-11.0)
--- NOTE | 2024-12-21 10:00 | RAD_ITS ---
PROCEDURE: CHEST 1 VIEW (PORTABLE) REASON FOR EXAM: Shortness of breath. TECHNIQUE: Single frontal image including the chest and abdomen. COMPARISON: Chest x-ray of 10/03/2024. FINDINGS: No evidence of pulmonary edema. Lungs appear clear of acute disease, unchanged. Underlying chronic lung changes and hyperinflation appear stable. No pleural effusion or pneumothorax is noted. The cardiomediastinal silhouette is stable, without evidence of cardiomegaly. RAD/Chest 1 View (Portable) IMPRESSION: Stable examination, without evidence of acute cardiopulmonary disease Reading Location: [id number]
--- NOTE | 2024-12-21 10:00 | RAD_ITS ---
PROCEDURE: SHOULDER MIN 2 VIEWS; CLAVICLE REASON FOR EXAM: Trauma. TECHNIQUE: Four view left shoulder series and two-view left clavicle (combined dictation). COMPARISON: None. RAD/Clavicle IMPRESSION: Moderate left acromioclavicular joint degenerative changes are seen, with signi ficant associated joint narrowing. Elsewhere in the left clavicle, no significant finding is noted. The left glenohumeral joint demonstrates mild degenerative changes. No acute fracture or dislocation is seen. If clinical concern persists, short-term follow-up imaging may be obtained to r ule out a currently occult fracture. Reading Location: [id number]
--- NOTE | 2024-12-21 10:00 | RAD_ITS ---
PROCEDURE: SHOULDER MIN 2 VIEWS; CLAVICLE REASON FOR EXAM: Trauma. TECHNIQUE: Four view left shoulder series and two-view left clavicle (combined dictation). COMPARISON: None. RAD/Shoulder min 2 Views IMPRESSION: Moderate left acromioclavicular joint degenerative changes are seen, with signi ficant associated joint narrowing. Elsewhere in the left clavicle, no significant finding is noted. The left glenohumeral joint demonstrates mild degenerative changes. No acute fracture or dislocation is seen. If clinical concern persists, short-term follow-up imaging may be obtained to r ule out a currently occult fracture. Reading Location: [id number]
[2024-12-21 10:09] LABS: ALB/GLOB Ratio 0.7 RATIO (0.9-2.4); AST(SGOT) 68 U/L (15-37); Alanine Aminotransfer ALT/SGPT 69 U/L (16-61); Albumin, Serum 2.8 g/dL (3.2-5.0); Alkaline Phosphatase 169 U/L (45-117); Anion Gap 10 (5-15); BUN 12 mg/dL (7-18); BUN/Creat Ratio 11.7 RATIO (10-20); Calcium,Total 8.5 mg/dL (8.5-10.1); Chloride 95 mmol/L (98-107); Creatinine, Serum 1.03 mg/dL (0.70-1.30); EST Glomerular Filtration Rate 75 mL/min (>60); Est Glom Filt Rate - Afr Amer 91 mL/min (>60); Globulin 4.2 g/dL (2.2-4.2); Glucose 257 mg/dL (74-106); Potassium 3.3 mmol/L (3.5-5.1); Sodium Level 130 mmol/L (136-145); Thyroid Stim Hormone (TSH) 0.767 uIU/mL (0.358-3.740); Troponin-I HS 46 pg/mL (3.0-78.0)
[2024-12-21 10:35] LABS: Bedside Glucose 297 mg/dL (74-106)
[2024-12-21] MEDS: APIXABAN 5 MG TABLET PO ×2 (11:11→23:51)
[2024-12-21] MEDS: Metoprolol Tartrate 25 MG Tablet PO ×2 (11:11→23:52)
[2024-12-21] MEDS: Ipratropium/Albuterol Sulfate 3 ML AMPUL.NEB INHALATION (11:29)
--- NOTE | 2024-12-21 11:52 | CON.PCM.CA_ITS ---
Assessment & Plan Assessment/Plan (1) New onset atrial fibrillation: PLAN: Patient had EKG in October 2024 which was normal sinus rhythm. He now presents Emergency Department after a fall and a hypoglycemic episode which shortness of breath from progressive COPD. He is now in atrial fibrillation with a rapid ventricular response. Patient's heart rates in the 120 bpm range his blood pressure is 108/70. He is on multiple antihypertensives. Recommend the patient be admitted due to his tachypnea and known LV dysfunction from an old echocardiogram. Would like to try and get him back into sinus rhythm he will be started on Eliquis 5 mg twice daily would switch his Coreg to metoprolol to tartrate 25 mg twice daily initially. This may need to be increased for rate control. Would recommend holding the amlodipine so that we will have more room to add beta-jennifer therapy with his blood pressure. (2) Tachypnea: PLAN: Patient has a history of COPD and a [id number] smoking history. He is wheezing diffusely in his upper lobes. He does have a slight increase in his white blood cell count and I would recommend he be further evaluated for a COPD exacerbation. This very well may be part of the initiation of the new onset atrial fibrillation. It is difficult to tell when he went into atrial fibrillation but his last EKG in mid October 2024 was sinus rhythm. He has no other EKGs or rhythm strips I can find showing atrial fibrillation prior to that time either. (3) Hypokalemia: PLAN: Patient's potassium should would be replaced orally. (4) Hypertension: QUALIFIERS: Hypertension type: primary hypertension Qualified Code(s): I10 - Essential (primary) hypertension PLAN: Patient's blood pressure is well-controlled he is on amlodipine 10 mg daily and carvedilol 3.125 mg twice daily in the home environment. He is also on low-dose lisinopril 2.5 mg daily. This will be monitored as we try to obtain rate control with alternative medical therapy. (5) LV dysfunction: PLAN: Patient has a history of wall motion abnormality in the inferior segment on an old echo from fall 2023. His ejection fraction was estimated 45%. I recommend we repeat an echocardiogram to evaluate his atrial size rule out any progressive valvular heart disease and reevaluate his LV function. We should try and reinstitute his ROSALVA inhibitor therapy as blood pressure will tolerate and continue with the metoprolol for rate control. PLAN: Plan 1. We will switch Coreg to metoprolol to tartrate 25 mg twice daily and titrate to heart rate control. 2. Add Eliquis 5 mg twice daily. 3. Will reinstitute ROSALVA inhibitor therapy lisinopril 2.5 mg daily after the heart rate is controlled with beta-jennifer therapy. 4. Repeat echocardiogram to reevaluate LV function. 5. Continue with treatment of the COPD and other general medical care per the primary service. 6. Dr. Rojas will be taken over the service tomorrow morning. HPI Consult Data Date of Consult: 12/21/24 HPI Narrative Reason for Consultation: New onset atrial fibs with RVR. HPI Narrative: NAUN GARCÍA, is a 74 M who presents after a fall and being hypoglycemic. The patient has a history of diabetes on insulin he also carries a history of COPD. The patient reports to me that he has been progressively short of breath over the last 6 months with audible wheezing. He was not aware that he was in atrial fibrillation he has not noted any palpitations. His heart rate was 127 in atrial fibrillation in the emergency department with a blood pressure of 108/70. He had been on Coreg and his home environment. The twelve-lead EKG shows atrial for but a heart rate of [address]-T wave changes. His troponin was 45. The patient has no prior history of atrial fibrillation to his knowledge. EKGs from a hospitalization in September 2024 all in sinus rhythm. The patient did have an echocardiogram done around that time which showed an EF of 40-45% normal atria no significant valvular heart disease. There were segmental wall motion abnormalities documented. The patient denies any prior myocardial infarction or coronary artery disease. The patient does have a history with altered mental status in the fall 2023 as well. In June 2024 had elevated troponins when he was admitted with sepsis. When I examined the patient in the emergency department he was tachypneic to a mild degree but was uncomfortable appearing. There is also question about his social dynamics in his home environment. And he was wheezing significantly. Patient has a history of tobacco use but he quit smoking in 2020 after 90 pack years of smoking. [facility] Medical History ESBL (extended spectrum beta-lactamase) producing bacteria infection Osteoporosis Migraines Loss of hearing Rash Insulin dependent diabetes mellitus BPH (benign prostatic hyperplasia) History of ESBL E. coli infection Left ventricular systolic dysfunction (LVSD) Hyperbilirubinemia Transaminitis Hyperglycemia due to type 2 diabetes mellitus Prostate disease Dietary restriction Lipoma of back Sebaceous cyst Aneurysm Anxiety Excessive bleeding Chronic cough History of edema History of stress test History of echocardiogram Degenerative joint disease of hand Hyperlipidemia Benign essential hypertension Wears hearing aid Wears glasses Wears dentures Depression Alcohol use Diabetes History of steroid therapy Arthritis Hepatitis Easy bruising Gastric reflux Shortness of breath on exertion On home oxygen therapy Leg cramps Former smoker Hypertension COPD (chronic obstructive pulmonary disease) Smoking greater than 40 pack years Leukocytosis Home Medications ?Medication ?Instructions ?Recorded ?Last Taken ?Type amlodipine 10 mg tablet 10 mg PO DAILY HTN 12/23/21 10/03/24 History melatonin 3 mg tablet 3 mg PO QHS sleep aid 10/02/24 History multivitamin 1 tab PO DAILY multivitamin 12/23/21 10/03/24 History tamsulosin 0.4 mg capsule 0.4 mg PO QHS urinary retent ion 12/23/21 10/02/24 History guaifenesin 200 mg tablet 200 mg PO Q4H PRN Cough 02/07 03/30 Unknown History albuterol sulfate 90 mcg/actuation 1 inh inhalation BI D COPD 03/24/22 07/01/23 History aerosol inhaler (Ventolin HFA) fluticasone propionate 50 1 spray intranasal DAILY PRN 04/29/22 06/19/24 History mcg/actuation nasal allergy symptoms spray,suspension pantoprazole 20 mg tablet,delayed 20 mg PO DAILY GERD 04/29/22 10/03/24 History release glipizide 10 mg tablet 10 mg PO BID Diabetes 10/03/24 History potassium chloride 20 mEq 20 meq PO BID potassium #6 t abs 06/16/23 10/03/24 Rx tablet,extended release(part/cryst) primidone 50 mg tablet (Mysoline) 50 mg PO QHS primido ne 05/05/24 10/02/24 History blood sugar diagnostic (Accu-Chek #100 ea 06/28/24 Unk nown Rx Guide test strips) blood-glucose meter (Accu-Chek #1 ea 06/28/24 Unknown Rx Guide Glucose Meter) carvedilol 3.125 mg tablet 3.125 mg PO BID blood press ure 30 06/28/24 10/03/24 Rx days #60 tabs clopidogrel 75 mg tablet 75 mg PO DAILY anti platelet 30 06/28/24 10/03/24 Rx days #30 tabs lancets #200 ea 06/28/24 Unknown Rx lisinopril 2.5 mg tablet 2.5 mg PO DAILY blood pressu re 30 06/28/24 Unknown Rx days #30 tabs atorvastatin 40 mg tablet 40 mg PO DAILY cholesterol 1 12/03/23 10/03/24 History insulin glargine-yfgn 100 unit/mL 16 unit subcut BID d iabetes 10/03/24 10/03/24 History (3 mL) subcutaneous pen insulin lispro 100 unit/mL 1 sliding scale dose subcut ACHS 10/03/24 10/03/24 History subcutaneous pen (Humalog KwikPen diabetes (U-100) Insulin) ipratropium 0.5 mg-albuterol 3 mg 3 ml inhalation Q6H PRN COPD with 10/03/24 Unknown History (2.5 mg base)/3 mL nebulization exacerbation soln nystatin 100,000 unit/gram topical 1 applic topical BI D PRN skin 10/03/24 Unknown History powder ([facility]) irritation prednisone 20 mg tablet 40 mg (2 x 20 mg) PO DAILY # 10 tabs 10/05/24 Unknown Rx magnesium citrate 300 ml PO X1 #2 BOTTLES 09/10 08/02 Unknown Rx Allergy/AdvReac Type Severity Reaction Status Date / Time No Known Allergies Allergy Verified 12/21/24 09:08 Family History Father Cancer Heart disease Mother Heart disease Myocardial infarction Surgical History History of excision of mass History of cataract surgery History of esophagogastroduodenoscopy (EGD) Hx of colonoscopy History of hand surgery Hx of appendectomy H/O wrist surgery Social History household members: significant other Smoking Status: Former smoker quit date: 09/26/21 pack-years: 90 Tobacco: How many years used: 60 alcohol intake: former substance use type: does not use ROS Constitutional Constitutional: Reports as per HPI Eyes Eyes: Reports systems reviewed and no addt'l complaints, except as documented ENT HEENT: Reports systems reviewed and no addt'l complaints, except as documented Cardiovascular Cardiovascular: Reports as per HPI Respiratory/Chest Respiratory/Chest: Reports as per HPI Gastrointestinal Gastrointestinal: Reports systems reviewed and no addt'l complaints, except as documented Genitourinary Genitourinary: Reports systems reviewed and no addt'l complaints, except as documented Musculoskeletal Musculoskeletal: Reports systems reviewed and no addt'l complaints, except as documented Integumentary Integumentary: Reports systems reviewed and no addt'l complaints, except as documented Neurologic Neurologic: Reports as per HPI Psychiatric Psychiatric: Reports as per HPI Endocrine Endocrinology: Reports as per HPI Hematologic/Lymphatic Hematologic/Lymphatic: Reports systems reviewed and no addt'l complaints, except as documented Allergic/Immunologic Allergic/Immunologic: Reports systems reviewed and no addt'l complaints, except as documented Physical Exam Const alert and oriented x3 Constitutional Narrative: Slow to answer questions. HEENT normocephalic Eyes EOMs intact bilaterally Neck no carotid bruits Neck Narrative: Subtle JVD at 30 degrees at the mid neck level. Chest inspection of chest normal Resp Resp Narrative: Patient appears mildly short of breath with mild conversational dyspnea. Auscultation: wheezes expiratory wheezes and upper bilaterally and diminished lung sounds diffuse Cardio Rate: tachycardic Rhythm: abnormal rhythm irregularly irregular Heart Sounds: S1 normal, S2 normal and murmur systolic I/ soft holo right sternal border; Negative for click or gallop Extremity no pedal edema Extremity Narrative: Hyperpigmented bilateral lower extremities. Skin Skin Narrative: Hyperpigmentation on the lower extremities. Neuro Neuro Narrative: Alert and oriented x 3 but slow to answer questions. Psych mental status grossly normal Risk Stratification Risk Stratification Applicable: Yes Age >/= 65: Yes >/= 3 CAD Risk Factors (HTN, HLD, DM, family hx of CAD, or current smoker): Yes Aspirin Use in the Past 7 Days: No Severe Angina (>/= episodes in 24 hours): No EKG ST Changes >/= 0.5mm: No Positive Cardiac Marker: No NEHAL Risk Stratification Score: 2 NEHAL % Risk: 8% Risk Charges/Coding Visit Charges Inpatient E&M: 91139 Init Hosp L3 Objective Data Vital Signs: Vital Signs Temp Pulse Resp BP Pulse Ox O2 Del Method 98.2 F 104 H 20 H 123/87 H 99 Room Air 12/21/24 11:44 12/21/24 11:44 12/21/24 11:44 12/21/24 11:44 12/21/24 11:44 12/21/24 09:12 Oxygen Delivery Method Room Air Weight: 195 lb 8.8 oz Body Mass Index (BMI) 27.2 Intake & Output: Intake and Output for Last 24 Hours 12/19/24 12/20/24 12/21/24 23:59 23:59 23:59 Intake Total 0 / 0 Balance 0 / 0 Lab / Micro Data Attestation: I reviewed the patient's lab results. 12/21/24 09:00 12/21/24 09:00 Labs: Laboratory Results - last 24 hr 12/21/24 09:00: WBC 14.7 H, RBC 4.58 L, Hgb 13.9, Hct 40.7, MCV 88.9, MCH 30.3, MCHC 34.2, RDW Std Deviation 46.0 H, RDW Coeff of Tarik 14.3, Plt Count 236, MPV 10.3, Sodium 130 L, Potassium 3.3 L, Chloride 95 L, Carbon Dioxide 25.0, Anion Gap 10, BUN 12, Creatinine 1.03, Estim Creat Clear Calc 66.00, Est GFR (MDRD) Af Amer 91, Est GFR (MDRD) Non-Af 75, BUN/Creatinine Ratio 11.7, Glucose 257 H, Calcium 8.5, Total Bilirubin 1.00, AST 68 H, ALT 69 H, Alkaline Phosphatase 169 H, Troponin I High Sens 46, Total Protein 7.0, Albumin 2.8 L, Globulin 4.2, A lbumin/Globulin Ratio 0.7 L, TSH 0.767 12/21/24 09:16: POC Glucose 278 H 12/21/24 10:18: POC Glucose 297 H Rhythm Strip Rhythm Strip: A-fib Rate: 120 Cardiology Labs/Tests 12/21/24 09:00: WBC 14.7 H, RBC 4.58 L, Hgb 13.9, Hct 40.7, MCV 88.9, MCH 30.3, MCHC 34.2, Plt Count 236, MPV 10.3, Sodium 130 L, Potassium 3.3 L, Chloride 95 L , Carbon Dioxide 25.0, Anion Gap 10, BUN 12, Creatinine 1.03, Est GFR (MDRD) Af Amer 91, Est GFR (MDRD) Non-Af 75, BUN/Creatinine Ratio 11.7, Glucose 257 H, Calcium 8.5, Total Bilirubin 1.00 Rhythm: EKG: ECHO: Stress Test: Cardiac Cath: PCI: CT Surgery: Holter monitor: EPS: PPM: CXR: Chest CT Scan: Radiography Diagnostic Testing: Radiology Impression Brain CT 12/21/24 09:34 IMPRESSION: No intracranial hemorrhage or other acute process is noted. Stable examination. Reading Location: [address] Cervical Spine CT 12/21/24 09:34 IMPRESSION: 1. No acute fracture. 2. Degenerative changes cervical spine as described. Reading Location: [facility] Chest X-Ray 12/21/24 10:00 IMPRESSION: Stable examination, without evidence of acute cardiopulmonary disease Reading Location: [id number] Clavicle X-Ray 12/21/24 10:00 IMPRESSION: Moderate left acromioclavicular joint degenerative changes are seen, with significant associated joint narrowing. Elsewhere in the left clavicle, no significant finding is noted. The left glenohumeral joint demonstrates mild degenerative changes. No acute fracture or dislocation is seen. If clinical concern persists, short-term follow-up imaging may be obtained to rule out a currently occult fracture. Reading Location: [id number] Shoulder X-Ray 12/21/24 10:00 IMPRESSION: Moderate left acromioclavicular joint degenerative changes are seen, with significant associated joint narrowing. Elsewhere in the left clavicle, no significant finding is noted. The left glenohumeral joint demonstrates mild degenerative changes. No acute fracture or dislocation is seen. If clinical concern persists, short-term follow-up imaging may be obtained to rule out a currently occult fracture. Reading Location: [id number]
--- NOTE | 2024-12-21 12:08 | ECHOCS_ITS ---
Reason For Study Reason For Study: ATRIAL FIBRILLATION Procedure This was a 2D Doppler, Color Flow transthoracic echocardiogram. The patient was scanned supine. Exam performed portable in patient room. Left Ventricle Normal LV size. The left ventricular ejection fraction is 50 %. Left ventricular systolic function is lower limits of normal. No regional wall motion abnormalities noted. Right Ventricle Normal RV size. Normal systolic function. Atria Normal left atrium. Normal right atrium. Mitral Valve Normal mitral valve. Tricuspid Valve Normal tricuspid valve. Aortic Valve Trisinus/trileaflet aortic valve. Pulmonic Valve Normal pulmonic valve. Great Vessels Normal aortic root. The pulmonary artery is normal size. Inferior vena cava collapse with respiration. Pericardium/Pleural No pericardial effusion. Medication Diluted definity 2.5ml given slow IV push to enhance endocardial definition. MMode/2D Measurements & Calculations LVIDd: 4.9 cm IVSd: 1.0 cm LVOT diam: 2.1 cm LVIDs: 4.2 cm LVPWd: 1.1 cm RVDd: 3.6 cm FS: 13.8 % LVOT area: 3.3 cm2 asc Aorta Diam: 3.4 cm LAV(MOD-bp): 33.5 ml LVAd ap4: 38.4 cm2 LAV(MOD-bp) Indexed: 16.1 ml/m2 LVLd ap4: 8.5 cm LAV(MOD-sp2): 39.7 ml EDV(MOD-sp4): 140.5 ml LAV(MOD-sp4): 29.3 ml EDV(sp4-el): 146.4 ml LVAs ap4: 27.0 cm2 LVLs ap4: 7.8 cm ESV(MOD-sp4): 77.7 ml ESV(sp4-el): 79.6 ml EF(MOD-sp4): 44.7 % EF(sp4-el): 45.7 % LVAd ap2: 36.0 cm2 SV(MOD-sp4): 62.8 ml SV(MOD-sp2): 53.5 ml LVLd ap2: 8.2 cm SI(MOD-sp4): 30.1 ml/m2 SI(MOD-sp2): 25.6 ml/m2 EDV(MOD-sp2): 129.7 ml EDV(sp2-el): 134.0 ml LVAs ap2: 26.1 cm2 LVLs ap2: 7.4 cm ESV(MOD-sp2): 76.3 ml ESV(sp2-el): 77.7 ml EF(MOD-sp2): 41.2 % SV(sp4-el): 66.8 ml Ao sinus diam: 3.[address] Junction: 3.1 cm LA dimension(2D): 3.1 cm LA A4 area: 13.6 cm2 RA A4 area: 14.4 cm2 TAPSE: 1.2 cm Time Measurements MV dec time: 0.18 sec Doppler Measurements & Calculations MV E max jacob: 76.2 cm/sec Ao V2 max: 110.8 cm/sec LV V1 max: 80.2 cm/sec Ao max P.9 mmHg LV V1 max P.7 mmHg Ao V2 mean: 84.3 cm/sec LV V1 mean P.5 mmHg Ao mean P.0 mmHg LV V1 mean: 58.1 cm/sec Ao V2 VTI: 16.2 cm LV V1 VTI: 11.7 cm AV (velocity ratio): 0.72 MICHELLE(I,D): 2.4 cm2 MICHELLE(V,D): 2.4 cm2 SV(LVOT): 38.8 ml PA V2 max: 69.6 cm/sec TR max jacob: 251.5 cm/sec TR max P.3 mmHg ECHO/Echo Complete W/ Contrast Interpretation Summary Normal LV size. The left ventricular ejection fraction is 50 %. Left ventricular systolic function is lower limits of normal. Contrast injection was performed. Ordering Physician: Allen Caro Referring Physician: Allen Caro Performed By: Cee Fletcher RDCS
--- NOTE | 2024-12-21 15:35 | MDS.RN ---
Called significant other to get updated medication list, she is unable to find it. Stated her daughter would be in later and bring one
--- NOTE | 2024-12-21 16:32 | HP.PCM.HOS_ITS ---
HPI - General General Date of Admission: 12/21/24 HPI Narrative NAUN GARCÍA, is a 74 M who presents to the hospital after mechanical fall at home, he noticed that try to get out of bed he was weak in his lower extremities and then when he finally was able to sit up he felt dizzy. He is not sure if he blacked out or not when he fell and he is not complaining of any headache or head pain CT of the brain was unremarkable. After his fall EMS was called and he was found to be hypoglycemic to 38 which was treated by EMS. When he presented to the hospital he they did a skeletal survey which did not show any fractures however he was found to then be in A-fib with RVR. Heart rates have been variable but mostly less than 120 so cardiology recommended an echocardiogram and metoprolol 25 mg p.o. twice daily. As well as anticoagulation with Eliquis. He has describes some progressive shortness of breath over the last several months he does have some wheezing secondary to a history of COPD that he takes albuterol for. [facility] Medical History ESBL (extended spectrum beta-lactamase) producing bacteria infection Osteoporosis Migraines Loss of hearing Rash Insulin dependent diabetes mellitus BPH (benign prostatic hyperplasia) History of ESBL E. coli infection Left ventricular systolic dysfunction (LVSD) Hyperbilirubinemia Transaminitis Hyperglycemia due to type 2 diabetes mellitus Prostate disease Dietary restriction Lipoma of back Sebaceous cyst Aneurysm Anxiety Excessive bleeding Chronic cough History of edema History of stress test History of echocardiogram Degenerative joint disease of hand Hyperlipidemia Benign essential hypertension Wears hearing aid Wears glasses Wears dentures Depression Alcohol use Diabetes History of steroid therapy Arthritis Hepatitis Easy bruising Gastric reflux Shortness of breath on exertion On home oxygen therapy Leg cramps Former smoker Hypertension COPD (chronic obstructive pulmonary disease) Smoking greater than 40 pack years Leukocytosis Home Medications ?Medication ?Instructions ?Recorded ?Last Taken ?Type amlodipine 10 mg tablet 10 mg PO DAILY HTN 12/23/21 10/03/24 History melatonin 3 mg tablet 3 mg PO QHS sleep aid 10/02/24 History multivitamin 1 tab PO DAILY multivitamin 12/23/21 10/03/24 History tamsulosin 0.4 mg capsule 0.4 mg PO QHS urinary retent ion 12/23/21 10/02/24 History guaifenesin 200 mg tablet 200 mg PO Q4H PRN Cough 02/07 03/30 Unknown History albuterol sulfate 90 mcg/actuation 1 inh inhalation BI D COPD 03/24/22 07/01/23 History aerosol inhaler (Ventolin HFA) fluticasone propionate 50 1 spray intranasal DAILY PRN 04/29/22 06/19/24 History mcg/actuation nasal allergy symptoms spray,suspension pantoprazole 20 mg tablet,delayed 20 mg PO DAILY GERD 04/29/22 10/03/24 History release glipizide 10 mg tablet 10 mg PO BID Diabetes 10/03/24 History potassium chloride 20 mEq 20 meq PO BID potassium #6 t abs 06/16/23 10/03/24 Rx tablet,extended release(part/cryst) primidone 50 mg tablet (Mysoline) 50 mg PO QHS primido ne 05/05/24 10/02/24 History blood sugar diagnostic (Accu-Chek #100 ea 06/28/24 Unk nown Rx Guide test strips) blood-glucose meter (Accu-Chek #1 ea 06/28/24 Unknown Rx Guide Glucose Meter) carvedilol 3.125 mg tablet 3.125 mg PO BID blood press ure 30 06/28/24 10/03/24 Rx days #60 tabs clopidogrel 75 mg tablet 75 mg PO DAILY anti platelet 30 06/28/24 10/03/24 Rx days #30 tabs lancets #200 ea 06/28/24 Unknown Rx lisinopril 2.5 mg tablet 2.5 mg PO DAILY blood pressu re 30 06/28/24 Unknown Rx days #30 tabs atorvastatin 40 mg tablet 40 mg PO DAILY cholesterol 1 12/03/23 10/03/24 History insulin glargine-yfgn 100 unit/mL 16 unit subcut BID d iabetes 10/03/24 10/03/24 History (3 mL) subcutaneous pen insulin lispro 100 unit/mL 1 sliding scale dose subcut ACHS 10/03/24 10/03/24 History subcutaneous pen (Humalog KwikPen diabetes (U-100) Insulin) ipratropium 0.5 mg-albuterol 3 mg 3 ml inhalation Q6H PRN COPD with 10/03/24 Unknown History (2.5 mg base)/3 mL nebulization exacerbation soln nystatin 100,000 unit/gram topical 1 applic topical BI D PRN skin 10/03/24 Unknown History powder ([facility]) irritation prednisone 20 mg tablet 40 mg (2 x 20 mg) PO DAILY # 10 tabs 10/05/24 Unknown Rx magnesium citrate 300 ml PO X1 #2 BOTTLES 09/10 08/02 Unknown Rx Allergy/AdvReac Type Severity Reaction Status Date / Time No Known Allergies Allergy Verified 12/21/24 09:08 Family History Father Cancer Heart disease Mother Heart disease Myocardial infarction Surgical History History of excision of mass History of cataract surgery History of esophagogastroduodenoscopy (EGD) Hx of colonoscopy History of hand surgery Hx of appendectomy H/O wrist surgery Social History household members: significant other Smoking Status: Former smoker quit date: 09/26/21 pack-years: 90 Tobacco: How many years used: 60 alcohol intake: former substance use type: does not use ROS Constitutional Constitutional: Denies chills, fatigue, fever(s) or malaise Eyes Eyes: Denies blurry vision ENT HEENT: Denies headache(s) or nasal discharge Cardiovascular Cardiovascular: Denies chest pain, dyspnea on exertion or syncope Respiratory/Chest Respiratory/Chest: Denies cough, shortness of breath at rest or shortness of breath with exertion Gastrointestinal Gastrointestinal: Denies constipation, diarrhea, nausea or vomiting Genitourinary Genitourinary: Denies dysuria Musculoskeletal Musculoskeletal: Reports joint pain Neurologic Neurologic: Denies focal weakness, numbness or tremor(s) Psychiatric Psychiatric: Denies anxiety or depression Vital Signs Vital Signs Vital Signs: 12/21/24 09:02 12/21/24 09:12 12/21/24 11:02 Temperature 99.7 F H Temperature Source Oral Pulse Rate 142 H 108 H Respiratory Rate 26 H 33 H Respiratory Effort Short of Breath Respiratory Depth Deep Respiratory Pattern Tachypnea Blood Pressure 108/70 113/79 Blood Pressure Mean 82 90 Pulse Ox 94 94 93 Oxygen Delivery Method Room Air Room Air 12/21/24 11:31 12/21/24 11:44 12/21/24 12:16 Temperature 98.2 F 98.2 F Temperature Source Oral Pulse Rate 104 H 104 H 96 Respiratory Rate 20 H 20 H 20 H Respiratory Effort Respiratory Depth Respiratory Pattern Normal Blood Pressure 123/87 H 107/78 Blood Pressure Mean 99 87 Pulse Ox 99 96 Oxygen Delivery Method Room Air 12/21/24 12:30 Temperature Temperature Source Pulse Rate Respiratory Rate Respiratory Effort Normal Non-Labored Respiratory Depth Normal Respiratory Pattern Normal Blood Pressure Blood Pressure Mean Pulse Ox Oxygen Delivery Method Room Air Weight Weight: 186 lb 11.704 oz Body Mass Index (BMI) 26.0 Physical Exam Narrative General: Alert, Oriented x3, Cooperative, No apparent distress HEENT: Atraumatic, PERRLA, EOMI, Normocephalic Oral: Moist Mucosa Neck: Supple, No JVD Lungs: Diminished, Normal air movement, No rhonchi, wheeze, No rales Cardiovascular: Irregular rate and rhythm, Normal S1, Normal S2, No murmurs Abdomen: Soft, Non Tender, Non-Distended, No Hepato-splenomegaly Extremities: No edema, Capillary Refill Less than 3 Seconds Skin: No rashes, No breakdown Musculoskeletal: Pain to palpation of his left shoulder Neurological: No focal neurological deficits, Motor Exam 5/5 strength throughout, Sensory exam intact to light touch and pain Psych/Mental Status: Normal Affect, Appropriate Results Lab / Micro Data 12/21/24 09:00 12/21/24 09:00 Labs: Laboratory Results - last 24 hr 12/21/24 09:00: WBC 14.7 H, RBC 4.58 L, Hgb 13.9, Hct 40.7, MCV 88.9, MCH 30.3, MCHC 34.2, RDW Std Deviation 46.0 H, RDW Coeff of Tarik 14.3, Plt Count 236, MPV 10.3, Sodium 130 L, Potassium 3.3 L, Chloride 95 L, Carbon Dioxide 25.0, Anion Gap 10, BUN 12, Creatinine 1.03, Estim Creat Clear Calc 66.00, Est GFR (MDRD) Af Amer 91, Est GFR (MDRD) Non-Af 75, BUN/Creatinine Ratio 11.7, Glucose 257 H, Calcium 8.5, Total Bilirubin 1.00, AST 68 H, ALT 69 H, Alkaline Phosphatase 169 H, Troponin I High Sens 46, Total Protein 7.0, Albumin 2.8 L, Globulin 4.2, A lbumin/Globulin Ratio 0.7 L, TSH 0.767 12/21/24 09:16: POC Glucose 278 H 12/21/24 10:18: POC Glucose 297 H Rhythm Strip Rhythm Strip: A-fib Rate: 120 Imaging Radiology Impression Brain CT 12/21/24 09:34 IMPRESSION: No intracranial hemorrhage or other acute process is noted. Stable examination. Reading Location: [id number] Cervical Spine CT 12/21/24 09:34 IMPRESSION: 1. No acute fracture. 2. Degenerative changes cervical spine as described. Reading Location: [facility] Chest X-Ray 12/21/24 10:00 IMPRESSION: Stable examination, without evidence of acute cardiopulmonary disease Reading Location: [id number] Clavicle X-Ray 12/21/24 10:00 IMPRESSION: Moderate left acromioclavicular joint degenerative changes are seen, with significant associated joint narrowing. Elsewhere in the left clavicle, no significant finding is noted. The left glenohumeral joint demonstrates mild degenerative changes. No acute fracture or dislocation is seen. If clinical concern persists, short-term follow-up imaging may be obtained to rule out a currently occult fracture. Reading Location: [id number] Shoulder X-Ray 12/21/24 10:00 IMPRESSION: Moderate left acromioclavicular joint degenerative changes are seen, with significant associated joint narrowing. Elsewhere in the left clavicle, no significant finding is noted. The left glenohumeral joint demonstrates mild degenerative changes. No acute fracture or dislocation is seen. If clinical concern persists, short-term follow-up imaging may be obtained to rule out a currently occult fracture. Reading Location: [id number] Assessment & Plan Assessment/Plan (1) Hypoglycemia associated with diabetes: (2) New onset atrial fibrillation: PLAN: Plan 1. New onset A-fib/essential HTN/HLD ? Appreciate cardiology's assistance ? Will obtain echocardiogram ? TSH was normal ? Continue with metoprolol 25 mg p.o. twice daily and discontinue his Coreg ? Continue with Eliquis 5 mg p.o. twice daily ? He had an echo on 06/23/2024 with an EF of 40% with an RVSP of 46 mmHg with severe inferior and inferior septal and anterior septal hypokinesis ? UA is pending to evaluate the leukocytosis which is potentially reactive to his fall, will hold off on antibiotics and monitor 2. Type 2 diabetes with hyperglycemia ? Will reduce his insulin dosing and place him on a cardiac diet ? Sliding scale insulin ? Accu-Cheks ACHS ? Will monitor make adjustments as necessary 3. Mild COPD exacerbation ?He is currently requiring 2 L nasal cannula as he desaturated to 88% on room air ?Will add steroids as well as continuing his home inhalers 4. Appears he has a history of urinary retention and GERD however medications are not verified yet DVT: Evequis 75 minutes was spent on direct patient care, including documentation as well as chart review and collaboration with colleagues Charges/Coding Visit Charges Inpatient E&M: 29074 Init Hosp L3
[2024-12-21 16:58] LABS: Bedside Glucose 197 mg/dL (74-106)
[2024-12-21 17:44] LABS: Bedside Glucose 270 mg/dL (74-106)
[2024-12-21] MEDS: Insulin Lispro 100 UNIT/ML INSULN.PEN SC (18:00)
[2024-12-21] MEDS: Albuterol 2.5 MG/3 ML VIAL.NEB. INHALATION (20:35)
[2024-12-21] MEDS: Atorvastatin Calcium 40 MG Tablet PO (23:52)
[2024-12-22] VITALS (12 sets, daily range): BP systolic 108–123; BP diastolic 69–83; PULSE 58–89; RESP 14–20; TEMP 35.8–36.6; O2SAT 92–97
[2024-12-22] MEDS: 0.9% Saline Lock 10 ML Syringe IV ×4 (00:03→23:26)
[2024-12-22 00:14] LABS: Squamous Epithelial Cells - UA 0 SEEN /hpf (0-5)
[2024-12-22 00:23] LABS: Color, Urine Straw (Yellow); Glucose, Dipstick Normal (Normal); Ketone-Dipstick Negative (Negative); Leukocyte Esterase-Dipstick 500 /ul (Negative); Nitrite-Dipstick Negative (Negative); Occult Blood-Urine 150 /ul (Negative); Protein-Dipstick 100 mg/dl (Negative); Urine Bilirubin Dipstick Negative (Negative); Urine Clarity Cloudy (Clear); Urine Urobilinogen Normal (Normal)
[2024-12-22 00:27] LABS: Bedside Glucose 153 mg/dL (74-106)
[2024-12-22 00:43] LABS: Mucous, Urine RARE /hpf (<or=2+); Red Blood Cells-Urine 0 SEEN /hpf (0-5); White Blood Cells >100 SEEN /hpf (0-5)
[2024-12-22 00:44] LABS: Bacteria 2+ /hpf (None Seen)
[2024-12-22] MEDS: Insulin Lispro 100 UNIT/ML INSULN.PEN SC ×5 (06:34→23:22)
[2024-12-22 06:52] LABS: Bedside Glucose 266 mg/dL (74-106)
[2024-12-22 07:24] LABS: Absolute Lymphocyte Count 0.81 X10^3/uL (0.83-4.51); Absolute Neutrophil Count 5.1 X10^3/uL (2.0-7.7); Basophil# 0.02 X10^3/uL; Basophil% 0.3 % (0-1); Hematocrit 40.8 % (40-54); Hemoglobin 13.8 g/dL (13.0-16.5); Lymphocyte # 0.81 X10^3/ul (0.83-4.51); Lymphocyte % 12.9 % (19-41); Mean Corp Hgb Conc 33.8 g/dL (32-36); Mean Corpuscular Volume 88.7 fL (80-94); Monocyte# 0.19 X10^3/uL; NRBC Flagged by Analyzer 0 % (0-5); Neutrophil # 5.13 X10^3/uL (2.7-7.7); Neutrophil % 81.7 % (47-70); Platelet Count 246 K/mm3 (150-450); RBC Distribution Width CV 14.3 % (11.6-14.6); RBC Distribution Width SD 46.5 fl (35.1-43.9); White Blood Count 6.3 K/mm3 (4.4-11.0)
[2024-12-22] MEDS: Albuterol 2.5 MG/3 ML VIAL.NEB. INHALATION ×2 (07:39→20:25)
[2024-12-22 08:02] LABS: Anion Gap 8 (5-15); BUN 17 mg/dL (7-18); BUN/Creat Ratio 19.3 RATIO (10-20); Calcium,Total 8.9 mg/dL (8.5-10.1); Chloride 100 mmol/L (98-107); Creatinine, Serum 0.88 mg/dL (0.70-1.30); EST Glomerular Filtration Rate 90 mL/min (>60); Est Glom Filt Rate - Afr Amer 108 mL/min (>60); Estimated Creatinine Clearance 77.25 ml/min; Glucose 263 mg/dL (74-106); Magnesium 2.6 mg/dL (1.6-2.6); Potassium 3.6 mmol/L (3.5-5.1); Sodium Level 133 mmol/L (136-145)
[2024-12-22] MEDS: Ceftriaxone 1 GM/50 ML BAG IV (09:12)
[2024-12-22] MEDS: Metoprolol Tartrate 25 MG Tablet PO (09:17)
[2024-12-22] MEDS: amLODIPine 10 MG Tablet PO (09:17)
[2024-12-22] MEDS: APIXABAN 5 MG TABLET PO ×2 (09:17→23:17)
[2024-12-22] MEDS: Insulin Glargine-YFGN 100 UNIT/ML Pen 16 UNIT SC (09:18)
--- NOTE | 2024-12-22 12:45 | CASEMGMT ---
RN CM Face to Face with patient for initial transition planning/care coordination assessment. RN CM introduced self and role at [facility]. Patient lying in bed, alert and oriented. Patient willing to participate in assessment and is able to answer all questions appropriately. Care providers, pharmacy, and demographics verified. PCP: Jacob Bowman [place] Specialists: Saroj, urologist Preferred Pharmacy: [facility] Insurance: [place], [facility] Prescription Benefit: yes Living Will/HPOA: none LNOK: son, significant other Living Arrangements: Patient lives with SO in a single story home with no steps. Patient is independent at home. Transportation: self, daughter DME/HHC: Patient has shower chair, raised toilet, cane, grab bars, glucometer, pulse ox, nebulizer, and [facility] oxygen [facility]. No previous HHC or SNF. Patient wishes to discharge home, denies need for home health at this time. Patient states he has no further needs or concerns at this time. CM to follow for discharge planning needs that may arise. Disposition Plan: Patient to discharge home with family support and follow-up plans in place. Salud YING, RN, CM
--- NOTE | 2024-12-22 14:04 | PN.HOSP_ITS ---
Subjective Subjective Remained stable from yesterday, requiring 2 L nasal cannula. UA did come back positive for UTI Objective Data Objective Data Vital Signs: Vital Signs Temp Pulse Resp BP Pulse Ox O2 Del Method O2 Flow Rate 98 F 76 14 115/69 96 Room Air 2 12/22/24 09:02 12/22/24 09:17 12/22/24 09:02 12/22/24 09:02 12/22/24 11:40 12/22/24 09:02 12/22/24 11:40 Oxygen Flow Rate (L/min) 2 Oxygen Delivery Method Room Air Weight: 186 lb 11.704 oz Body Mass Index (BMI) 26.0 Intake & Output: Intake and Output for Last 24 Hours 12/21/24 12/22/24 12/23/24 03:59 03:59 03:59 Intake Total 0 / 0 50 / 50 Output Total 600 / 600 500 / 500 Balance -600 / -600 -450 / -450 Lab / Micro Data 12/22/24 07:09 12/22/24 07:09 Labs: Laboratory Results - last 24 hr 12/21/24 09:04: POC Glucose 270 H 12/21/24 16:35: POC Glucose 197 H 12/21/24 23:59: Urine Color Straw, Urine Clarity Cloudy, Urine pH 6.0, Ur Specific [place] 1.010, Urine Protein 100 H, Urine Glucose (UA) Normal, Urine Ketones Negative, Urine Occult Blood 150 H, Urine Nitrite Negative, Urine Bilirubin Negative, Urine Urobilinogen Normal, Ur Leukocyte Esterase 500 H, Urine RBC 0 SEEN, Urine WBC >100 SEEN, Ur Squamous Epith Cells 0 SEEN, Urine Bacteria 2+, Urine Mucus RARE, POC Glucose 153 H 12/22/24 06:32: POC Glucose 266 H 12/22/24 07:09: WBC 6.3, RBC 4.60, Hgb 13.8, Hct 40.8, MCV 88.7, MCH 30.0, MCHC 33.8, RDW Std Deviation 46.5 H, RDW Coeff of Tarik 14.3, Plt Count 246, MPV 10.0, Immature Gran % (Auto) 2.100 H, Neut % (Auto) 81.7 H, Lymph % (Auto) 12.9 L, [place] % (Auto) 3.0, Eos % (Auto) 0.0, Baso % (Auto) 0.3, Absolute Neuts (auto) 5.1, Absolute Lymphs (auto) 0.81 L, Nucleated RBC % 0, Sodium 133 L, Potassium 3.6, Chloride 100, Carbon Dioxide 25.0, Anion Gap 8, BUN 17, Creatinine 0.88, Estim Creat Clear Calc 77.25, Est GFR (MDRD) Af Amer 108, Est GFR (MDRD) Non-Af 90, BUN/Creatinine Ratio 19.3, Glucose 263 H, Calcium 8.9, Phosphorus 4.0, Magnesium 2.6 Radiography Diagnostic Testing: Radiology Impression Echocardiogram 12/21/24 12:08 Interpretation Summary Normal LV size. The left ventricular ejection fraction is 50 %. Left ventricular systolic function is lower limits of normal. Contrast injection was performed. Ordering Physician: Allen Caro Referring Physician: Allen Caro Performed By: Cee Fletcher RDCS Rhythm Strip Rhythm Strip: A-fib Rate: 120 Physical Exam Narrative General: Alert, Oriented x3, Cooperative, No apparent distress HEENT: Atraumatic, PERRLA, EOMI, Normocephalic Oral: Moist Mucosa Neck: Supple, No JVD Lungs: Diminished, Normal air movement, No rhonchi, wheeze, No rales Cardiovascular: Irregular rate and rhythm, Normal S1, Normal S2, No murmurs Abdomen: Soft, Non Tender, Non-Distended, No Hepato-splenomegaly Extremities: No edema, Capillary Refill Less than 3 Seconds Skin: No rashes, No breakdown Musculoskeletal: Pain to palpation of his left shoulder Neurological: No focal neurological deficits, Motor Exam 5/5 strength throughout, Sensory exam intact to light touch and pain Psych/Mental Status: Normal Affect, Appropriate Assessment & Plan Assessment/Plan (1) Hypoglycemia associated with diabetes: (2) New onset atrial fibrillation: PLAN: Plan 1. New onset A-fib/essential HTN/HLD ? Appreciate cardiology's assistance ? TSH was normal ? Continue with metoprolol 25 mg p.o. twice daily and discontinue his Coreg ? Continue with Eliquis 5 mg p.o. twice daily ? He had an echo on 06/23/2024 with an EF of 40% with an RVSP of 46 mmHg with severe inferior and inferior septal and anterior septal hypokinesis. Echocardiogram from yesterday with EF of 50% 2. UTI ? Urine sample was significantly positive for the MTI ? Continue with Rocephin ? Urine cultures pending 3. Type 2 diabetes with hyperglycemia ? Will reduce his insulin dosing and place him on a cardiac diet ? Sliding scale insulin ? Accu-Cheks ACHS ? Will monitor make adjustments as necessary 4. Mild COPD exacerbation ?He is currently requiring 2 L nasal cannula as he desaturated to 88% on room air ?Will add steroids as well as continuing his home inhalers 5. Appears he has a history of urinary retention and GERD however medications are not verified yet DVT: Jerzy Charges/Coding Visit Charges Inpatient E&M: 22319 Subs Hosp L2
--- NOTE | 2024-12-22 14:57 | PCM.PN.CARD ---
Subjective Subjective Shortness of breath is improved. No anginal type chest pain. Patient has left shoulder pain related to his fall at the time of syncope which appears to be related to his hypoglycemia. Patient says that he was not eating well for 3 days but was continuing to take his usual dose of insulin. He was advised to talk to his physician about how to dose his insulin appropriately. Objective Data Vital Signs: Vital Signs Temp Pulse Resp BP Pulse Ox O2 Del Method O2 Flow Rate 98 F 76 14 115/69 96 Room Air 2 12/22/24 09:02 12/22/24 09:17 12/22/24 09:02 12/22/24 09:02 12/22/24 11:40 12/22/24 09:02 12/22/24 11:40 Oxygen Flow Rate (L/min) 2 Oxygen Delivery Method Room Air Weight: 186 lb 11.704 oz Body Mass Index (BMI) 26.0 Intake & Output: Intake and Output for Last 24 Hours 12/20/24 12/21/24 12/22/24 23:59 23:59 23:59 Intake Total 0 / 0 425 / 425 Output Total 600 / 600 900 / 900 Balance -600 / -600 -475 / -475 Lab / Micro Data 12/22/24 07:09 12/22/24 07:09 Labs: Laboratory Results - last 24 hr 12/21/24 09:04: POC Glucose 270 H 12/21/24 16:35: POC Glucose 197 H 12/21/24 23:59: Urine Color Straw, Urine Clarity Cloudy, Urine pH 6.0, Ur Specific [place] 1.010, Urine Protein 100 H, Urine Glucose (UA) Normal, Urine Ketones Negative, Urine Occult Blood 150 H, Urine Nitrite Negative, Urine Bilirubin Negative, Urine Urobilinogen Normal, Ur Leukocyte Esterase 500 H, Urine RBC 0 SEEN, Urine WBC >100 SEEN, Ur Squamous Epith Cells 0 SEEN, Urine Bacteria 2+, Urine Mucus RARE, POC Glucose 153 H 12/22/24 06:32: POC Glucose 266 H 12/22/24 07:09: WBC 6.3, RBC 4.60, Hgb 13.8, Hct 40.8, MCV 88.7, MCH 30.0, MCHC 33.8, RDW Std Deviation 46.5 H, RDW Coeff of Tarik 14.3, Plt Count 246, MPV 10.0, Immature Gran % (Auto) 2.100 H, Neut % (Auto) 81.7 H, Lymph % (Auto) 12.9 L, [place] % (Auto) 3.0, Eos % (Auto) 0.0, Baso % (Auto) 0.3, Absolute Neuts (auto) 5.1, Absolute Lymphs (auto) 0.81 L, Nucleated RBC % 0, Sodium 133 L, Potassium 3.6, Chloride 100, Carbon Dioxide 25.0, Anion Gap 8, BUN 17, Creatinine 0.88, Estim Creat Clear Calc 77.25, Est GFR (MDRD) Af Amer 108, Est GFR (MDRD) Non-Af 90, BUN/Creatinine Ratio 19.3, Glucose 263 H, Calcium 8.9, Phosphorus 4.0, Magnesium 2.6 Rhythm Strip Rhythm Strip: A-fib Rate: 120 Cardiology Labs/Tests 12/21/24 23:59: Urine Color Straw, Urine Clarity Cloudy, Urine pH 6.0, Ur Specific [place] 1.010, Urine Protein 100 H, Urine Glucose (UA) Normal, Urine Ketones Negative, Urine Occult Blood 150 H, Urine Nitrite Negative, Urine Bilirubin Negative, Urine Urobilinogen Normal, Ur Leukocyte Esterase 500 H, Urine RBC 0 SEEN, Urine WBC >100 SEEN 12/22/24 07:09: WBC 6.3, RBC 4.60, Hgb 13.8, Hct 40.8, MCV 88.7, MCH 30.0, MCHC 33.8, Plt Count 246, MPV 10.0, Immature Gran % (Auto) 2.100 H, Neut % (Auto) 81.7 H, Lymph % (Auto) 12.9 L, [place] % (Auto) 3.0, Eos % (Auto) 0.0, Baso % (Auto) 0.3, Absolute Neuts (auto) 5.1, Nucleated RBC % 0, Sodium 133 L, Potassium 3.6, Chloride 100, Carbon Dioxide 25.0, Anion Gap 8, BUN 17, Creatinine 0.88, Est GFR (MDRD) Af Amer 108, Est GFR (MDRD) Non-Af 90, BUN/Creatinine Ratio 19.3, Glucose 263 H, Calcium 8.9, Phosphorus 4.0, Magnesium 2.6 Rhythm: EKG: ECHO: Stress Test: Cardiac Cath: PCI: CT Surgery: Holter monitor: EPS: PPM: CXR: Chest CT Scan: Radiography Diagnostic Testing: Radiology Impression Echocardiogram 12/21/24 12:08 Interpretation Summary Normal LV size. The left ventricular ejection fraction is 50 %. Left ventricular systolic function is lower limits of normal. Contrast injection was performed. Ordering Physician: Allen Caro Referring Physician: Allen Caro Performed By: Cee Fletcher RDCS Physical Exam Const alert and oriented x3 HEENT normocephalic Eyes no scleral icterus Resp normal respiratory effort Resp Narrative: Scattered wheezes Cardio Cardio Narrative: Irregular rate Extremity no pedal edema Assessment & Plan Assessment/Plan (1) New onset atrial fibrillation: PLAN: Responding well to metoprolol. Increase metoprolol dose if patient's heart rate continues to remain elevated. This is patient's first episode of syncope. It also appears to be related to his hypoglycemia and patient was educated on dosing his insulin. He was advised to talk to his primary care physician as well. Discussed the risks and benefits of being on Eliquis. Patient understands and is okay with staying on Eliquis. If he has further episodes of syncope or falls then we may have to reassess at that time. Charges/Coding Visit Charges Inpatient E&M: 52726 Subs Hosp L1
[2024-12-22 16:42] LABS: Bedside Glucose 497 mg/dL (74-106)
[2024-12-22] MEDS: Insulin Lispro 100 UNIT/ML INSULN.PEN 10 UNIT SC (17:11)
[2024-12-22] MEDS: Meropenem 1 GM in 0.9% Normal Saline (100mL MB+) 100 ML IV (19:04)
[2024-12-22] MEDS: 0.9% Normal Saline (100mL Bag) 100 ML 15 ML IV (19:06)
[2024-12-22] MEDS: Atorvastatin Calcium 40 MG Tablet PO (23:17)
[2024-12-23] VITALS (10 sets, daily range): BP systolic 110–123; BP diastolic 74–88; PULSE 64–108; RESP 14–24; TEMP 35.9–36.6; O2SAT 94–99
[2024-12-23 00:26] LABS: Bedside Glucose 389 mg/dL (74-106)
[2024-12-23] MEDS: Meropenem 1 GM in 0.9% Normal Saline (100mL MB+) 100 ML IV ×3 (06:12→22:24)
[2024-12-23] MEDS: Insulin Lispro 100 UNIT/ML INSULN.PEN SC ×4 (06:21→22:22)
[2024-12-23 06:43] LABS: Absolute Lymphocyte Count 1.11 X10^3/uL (0.83-4.51); Absolute Neutrophil Count 11.8 X10^3/uL (2.0-7.7); Basophil# 0.05 X10^3/uL; Basophil% 0.4 % (0-1); Eosinophil# 0.07 X10^3/uL; Eosinophils% 0.5 % (0-5); Hematocrit 41.6 % (40-54); Lymphocyte # 1.11 X10^3/ul (0.83-4.51); Lymphocyte % 8.1 % (19-41); Mean Corp Hgb Conc 33.7 g/dL (32-36); Mean Corpuscular Hgb 29.8 pg (27.0-32.0); Mean Corpuscular Volume 88.5 fL (80-94); Mean Platelet Vol. 10.3 fl (6.2-12.0); Monocyte# 0.59 X10^3/uL; Monocyte% 4.3 % (0-10); NRBC Flagged by Analyzer 0 % (0-5); Neutrophil # 11.83 X10^3/uL (2.7-7.7); Neutrophil % 85.8 % (47-70); Platelet Count 352 K/mm3 (150-450); RBC Distribution Width CV 14.4 % (11.6-14.6); RBC Distribution Width SD 46.2 fl (35.1-43.9); White Blood Count 13.8 K/mm3 (4.4-11.0)
[2024-12-23 06:44] LABS: Bedside Glucose 318 mg/dL (74-106)
[2024-12-23 06:55] LABS: Anion Gap 8 (5-15); BUN 26 mg/dL (7-18); BUN/Creat Ratio 27.3 RATIO (10-20); Calcium,Total 9.7 mg/dL (8.5-10.1); Chloride 101 mmol/L (98-107); Creatinine, Serum 0.95 mg/dL (0.70-1.30); EST Glomerular Filtration Rate 82 mL/min (>60); Est Glom Filt Rate - Afr Amer 99 mL/min (>60); Estimated Creatinine Clearance 71.56 ml/min; Glucose 344 mg/dL (74-106); Sodium Level 136 mmol/L (136-145)
[2024-12-23] MEDS: Albuterol 2.5 MG/3 ML VIAL.NEB. INHALATION ×2 (07:40→19:19)
[2024-12-23] MEDS: APIXABAN 5 MG TABLET PO ×2 (09:01→22:12)
[2024-12-23] MEDS: Insulin Glargine-YFGN 100 UNIT/ML Pen 16 UNIT SC ×2 (09:01→22:21)
[2024-12-23] MEDS: amLODIPine 10 MG Tablet PO (09:02)
[2024-12-23] MEDS: Metoprolol Tartrate 25 MG Tablet PO (09:03)
[2024-12-23 12:29] LABS: Bedside Glucose 383 mg/dL (74-106)
--- NOTE | 2024-12-23 14:17 | PN.CARD_ITS ---
Subjective Subjective Denies any cardiac complaints. Review of telemetry reveals A-fib with RVR. Objective Data Vital Signs: Vital Signs Temp Pulse Resp BP Pulse Ox O2 Del Method O2 Flow Rate 97.7 F L 85 16 117/81 H 95 Room Air 2 12/23/24 12:15 12/23/24 12:15 12/23/24 12:15 12/23/24 12:15 12/23/24 12:15 12/23/24 12:15 12/23/24 08:55 Oxygen Flow Rate (L/min) 2 Oxygen Delivery Method Room Air Weight: 186 lb 11.704 oz Body Mass Index (BMI) 26.0 Intake & Output: Intake and Output for Last 24 Hours 12/21/24 12/22/24 12/23/24 23:59 23:59 23:59 Intake Total 0 / 0 1025 / 1025 220 / 220 Output Total 600 / 600 1150 / 1150 Balance -600 / -600 -125 / -125 220 / 220 Lab / Micro Data 12/23/24 05:58 12/23/24 05:58 Labs: Laboratory Results - last 24 hr 12/22/24 16:17: POC Glucose 497 H* 12/22/24 23:21: POC Glucose 389 H 12/23/24 05:58: WBC 13.8 H, RBC 4.70, Hgb 14.0, Hct 41.6, MCV 88.5, MCH 29.8, MCHC 33.7, RDW Std Deviation 46.2 H, RDW Coeff of Tarik 14.4, Plt Count 352, MPV 10.3, Immature Gran % (Auto) 0.900, Neut % (Auto) 85.8 H, Lymph % (Auto) 8.1 L, [place] % (Auto) 4.3, Eos % (Auto) 0.5, Baso % (Auto) 0.4, Absolute Neuts (auto) 11.8 H, Absolute Lymphs (auto) 1.11, Nucleated RBC % 0, Sodium 136, Potassium 4.0, Chloride 101, Carbon Dioxide 26.0, Anion Gap 8, BUN 26 H, Creatinine 0.95, Estim Creat Clear Calc 71.56, Est GFR (MDRD) Af Amer 99, Est GFR (MDRD) Non-Af 82, BUN/Creatinine Ratio 27.3 H, Glucose 344 H, Calcium 9.7 12/23/24 06:19: POC Glucose 318 H 12/23/24 12:00: POC Glucose 383 H Rhythm Strip Rhythm Strip: A-fib Rate: 120 Cardiology Labs/Tests 12/23/24 05:58: WBC 13.8 H, RBC 4.70, Hgb 14.0, Hct 41.6, MCV 88.5, MCH 29.8, MCHC 33.7, Plt Count 352, MPV 10.3, Immature Gran % (Auto) 0.900, Neut % (Auto) 85.8 H, Lymph % (Auto) 8.1 L, [place] % (Auto) 4.3, Eos % (Auto) 0.5, Baso % (Auto) 0.4, Absolute Neuts (auto) 11.8 H, Nucleated RBC % 0, Sodium 136, Potassium 4.0, Chloride 101, Carbon Dioxide 26.0, Anion Gap 8, BUN 26 H, Creatinine 0.95, Est GFR (MDRD) Af Amer 99, Est GFR (MDRD) Non-Af 82, BUN/Creatinine Ratio 27.3 H, G [place] 344 H, Calcium 9.7 Rhythm: EKG: ECHO: Stress Test: Cardiac Cath: PCI: CT Surgery: Holter monitor: EPS: PPM: CXR: Chest CT Scan: Physical Exam Const alert and oriented x3 HEENT normocephalic Eyes no scleral icterus Resp normal respiratory effort Assessment & Plan Assessment/Plan (1) New onset atrial fibrillation: PLAN: Increase metoprolol to 50 mg p.o. twice daily. Decrease amlodipine to 2.5 mg daily. This is patient's first episode of syncope. It also appears to be related to his hypoglycemia and patient was educated on dosing his insulin. He was advised to talk to his primary care physician as well. Discussed the risks and benefits of being on Eliquis. Patient understands and is okay with staying on Eliquis. If he has further episodes of syncope or falls then we may have to reassess at that time. Charges/Coding Visit Charges Inpatient E&M: 02784 Subs Hosp L1
[2024-12-23] MEDS: 0.9% Saline Lock 10 ML Syringe IV ×2 (15:32→22:25)
--- NOTE | 2024-12-23 16:57 | PCM.PN.HOSP ---
Subjective Subjective Doing well, no issues overnight. Feeling better Objective Data Objective Data Vital Signs: Vital Signs Temp Pulse Resp BP Pulse Ox O2 Del Method O2 Flow Rate 97.9 F 81 20 H 123/88 H 96 Nasal Cannula 2 12/23/24 15:30 12/23/24 15:30 12/23/24 15:30 12/23/24 15:30 12/23/24 15:42 12/23/24 15:47 12/23/24 15:47 FiO2 2 12/23/24 15:30 Oxygen Flow Rate (L/min) 2 Oxygen Delivery Method Nasal Cannula Weight: 186 lb 11.704 oz Body Mass Index (BMI) 26.0 Intake & Output: Intake and Output for Last 24 Hours 12/22/24 12/23/24 12/24/24 03:59 03:59 03:59 Intake Total 0 / 0 1125 / 1125 120 / 120 Output Total 600 / 600 1150 / 1150 Balance -600 / -600 -25 / -25 120 / 120 Lab / Micro Data 12/23/24 05:58 12/23/24 05:58 Labs: Laboratory Results - last 24 hr 12/22/24 23:21: POC Glucose 389 H 12/23/24 05:58: WBC 13.8 H, RBC 4.70, Hgb 14.0, Hct 41.6, MCV 88.5, MCH 29.8, MCHC 33.7, RDW Std Deviation 46.2 H, RDW Coeff of Tarik 14.4, Plt Count 352, MPV 10.3, Immature Gran % (Auto) 0.900, Neut % (Auto) 85.8 H, Lymph % (Auto) 8.1 L, [place] % (Auto) 4.3, Eos % (Auto) 0.5, Baso % (Auto) 0.4, Absolute Neuts (auto) 11.8 H, Absolute Lymphs (auto) 1.11, Nucleated RBC % 0, Sodium 136, Potassium 4.0, Chloride 101, Carbon Dioxide 26.0, Anion Gap 8, BUN 26 H, Creatinine 0.95, Estim Creat Clear Calc 71.56, Est GFR (MDRD) Af Amer 99, Est GFR (MDRD) Non-Af 82, BUN/Creatinine Ratio 27.3 H, Glucose 344 H, Calcium 9.7 12/23/24 06:19: POC Glucose 318 H 12/23/24 12:00: POC Glucose 383 H Rhythm Strip Rhythm Strip: A-fib Rate: 120 Physical Exam Narrative General: Alert, Oriented x3, Cooperative, No apparent distress HEENT: Atraumatic, PERRLA, EOMI, Normocephalic Oral: Moist Mucosa Neck: Supple, No JVD Lungs: Diminished, Normal air movement, No rhonchi, scattered wheeze, No rales Cardiovascular: Irregular rate and rhythm, Normal S1, Normal S2, No murmurs Abdomen: Soft, Non Tender, Non-Distended, No Hepato-splenomegaly Extremities: No edema, Capillary Refill Less than 3 Seconds Skin: No rashes, No breakdown Musculoskeletal: Pain to palpation of his left shoulder, improved Neurological: No focal neurological deficits, Motor Exam 5/5 strength throughout, Sensory exam intact to light touch and pain Psych/Mental Status: Normal Affect, Appropriate Assessment & Plan Assessment/Plan (1) Hypoglycemia associated with diabetes: (2) New onset atrial fibrillation: PLAN: Plan 1. New onset A-fib/essential HTN/HLD ? Appreciate cardiology's assistance ? TSH was normal ? Continue with metoprolol 25 mg p.o. twice daily and discontinue his Coreg ? Continue with Eliquis 5 mg p.o. twice daily ? He had an echo on 06/23/2024 with an EF of 40% with an RVSP of 46 mmHg with severe inferior and inferior septal and anterior septal hypokinesis. Echocardiogram from yesterday with EF of 50% 2. UTI ? Urine culture pending, he previously grew ESBL ? Continue with meropenem ? Urine culture results are likely to be delayed secondary to miscommunication in the microbiology lab if he is adamant about leaving tomorrow then can likely transition to fosfomycin 3. Type 2 diabetes with hyperglycemia ? Will reduce his insulin dosing and place him on a cardiac diet ? Sliding scale insulin ? Accu-Cheks ACHS ? Will monitor make adjustments as necessary 4. Mild COPD exacerbation ?He is currently requiring 2 L nasal cannula as he desaturated to 88% on room air ?Will add steroids as well as continuing his home inhalers 5. Appears he has a history of urinary retention and GERD however medications are not verified yet DVT: Eliton[place] Charges/Coding Visit Charges Inpatient E&M: 95642 Subs Hosp L2
[2024-12-23 17:38] LABS: Bedside Glucose 353 mg/dL (74-106)
[2024-12-23 17:45] LABS: Bedside Glucose 417 mg/dL (74-106)
[2024-12-23 17:46] LABS: Bedside Glucose 445 mg/dL (74-106)
[2024-12-23] MEDS: Atorvastatin Calcium 40 MG Tablet PO (22:12)
[2024-12-23] MEDS: Metoprolol Tartrate 50 MG Tablet PO (22:13)
[2024-12-24 03:13] LABS: Bedside Glucose 370 mg/dL (74-106)
[2024-12-24 03:26] VITALS: BP 111/77; PULSE 77; RESP 16; TEMP 36.1; O2SAT 94
[2024-12-24] MEDS: Insulin Lispro 100 UNIT/ML INSULN.PEN SC ×2 (06:52→11:23)
[2024-12-24] MEDS: 0.9% Saline Lock 10 ML Syringe IV (06:53)
[2024-12-24] MEDS: Meropenem 1 GM in 0.9% Normal Saline (100mL MB+) 100 ML IV (06:53)
[2024-12-24 06:55] LABS: Basophil# 0.06 X10^3/uL; Basophil% 0.3 % (0-1); Hemoglobin 13.5 g/dL (13.0-16.5); Lymphocyte % 5.8 % (19-41); Mean Corp Hgb Conc 33.8 g/dL (32-36); Mean Corpuscular Hgb 30.1 pg (27.0-32.0); Mean Corpuscular Volume 89.1 fL (80-94); Mean Platelet Vol. 10.1 fl (6.2-12.0); Monocyte# 0.53 X10^3/uL; Monocyte% 2.8 % (0-10); NRBC Flagged by Analyzer 0 % (0-5); Neutrophil # 17.02 X10^3/uL (2.7-7.7); Neutrophil % 89.9 % (47-70); Platelet Count 415 K/mm3 (150-450); RBC Distribution Width CV 14.6 % (11.6-14.6); RBC Distribution Width SD 47.4 fl (35.1-43.9); Red Blood Count 4.49 M/mm3 (4.6-6.2); White Blood Count 18.9 K/mm3 (4.4-11.0)
[2024-12-24 07:25] LABS: Bedside Glucose 296 mg/dL (74-106)
[2024-12-24] MEDS: Albuterol 2.5 MG/3 ML VIAL.NEB. INHALATION (07:29)
[2024-12-24 07:30] VITALS: PULSE 81; RESP 18; O2SAT 94
[2024-12-24 07:40] LABS: Anion Gap 8 (5-15); BUN 23 mg/dL (7-18); BUN/Creat Ratio 24.4 RATIO (10-20); Calcium,Total 9.1 mg/dL (8.5-10.1); Chloride 103 mmol/L (98-107); Creatinine, Serum 0.94 mg/dL (0.70-1.30); EST Glomerular Filtration Rate 83 mL/min (>60); Est Glom Filt Rate - Afr Amer 100 mL/min (>60); Estimated Creatinine Clearance 72.32 ml/min; Glucose 297 mg/dL (74-106); Potassium 4.1 mmol/L (3.5-5.1); Sodium Level 134 mmol/L (136-145)
[2024-12-24 09:21] VITALS: O2SAT 93
[2024-12-24 09:25] VITALS: BP 123/89; PULSE 94; RESP 18; TEMP 36.4; O2SAT 96
[2024-12-24 09:38] VITALS: PULSE 81
[2024-12-24] MEDS: Metoprolol Tartrate 50 MG Tablet PO (09:38)
[2024-12-24] MEDS: amLODIPine 2.5 MG Tablet PO (09:39)
[2024-12-24] MEDS: Insulin Glargine-YFGN 100 UNIT/ML Pen 16 UNIT SC (09:39)
[2024-12-24] MEDS: APIXABAN 5 MG TABLET PO (09:39)
[2024-12-24 09:48] VITALS: O2SAT 90; O2SAT 95
--- NOTE | 2024-12-24 11:24 | PCM.DC ---
Discharge Instructions Diet Discharge Diet: Low fat / Low cholesterol DC O2, CPAP, BIPAP needs RN Home O2 Qualification: Home O2 Qualification: Is the patient on home oxygen No 12/24/24 09:48 Home O2 Qualification: AT REST 1- Pulse Ox at rest 95 12/24/24 09:48 Home O2 Qualification: WITH AMBULATION 1- Pulse Ox with ambulation 90 12/24/24 09:48 1- Oxygen Flow Rate with 0 12/24/24 09:48 ambulation Home O2 Discharge instructions: No Dressing / Incision Discharge Activity: Return to Normal Activity Dressing / Incision Call your doctor if you observe: Fever of 101 or Higher, Shortness of breath, Dizziness, Fainting spells, Swelling in the ankles, Chest pain and Increased palpitations (irregular heartbeat) Follow Up Care Test Results: Test results from this visit will be discussed in further detail at your follow-up appointment, if applicable. Discharge Plan Admission Admit Date/Time: 12/21/24 11:43 Attending Provider: Allen Caro Primary Care Provider: [facility],[place] Consulting Providers: Delmar Vela Discharge Orders/Prescriptions Prescriptions: New amlodipine 2.5 mg Tablet 2.5 mg PO DAILY 30 Days Qty: 30 0RF metoprolol tartrate 50 mg Tablet 50 mg PO BID 30 Days Qty: 60 0RF Eliquis 5 mg Tablet 5 mg PO BID 30 Days Qty: 60 0RF prednisone 10 mg tablet 10 mg PO DAILY Qty: 32 0RF Rx Instructions: Take 4 tablets daily for 3 days then 3 tablets daily for 3 days then 2 tablets daily for 3 days then 1 tablet daily for 3 days then half tablet daily for 4 days fosfomycin tromethamine 3 gram packet 1 packet PO QODAY Qty: 1 0RF Continued glipizide 10 mg tablet 10 mg PO BID multivitamin Tablet 1 tab PO DAILY melatonin 3 mg Tablet 3 mg PO QHS tamsulosin 0.4 mg Capsule 0.4 mg PO QHS guaifenesin 200 mg Tablet 200 mg PO Q4H PRN (Reason: Cough) albuterol sulfate [Ventolin HFA] 90 mcg/actuation HFA aerosol inhaler 1 inh inhalation BID pantoprazole 20 mg Tablet,Delayed Release (Dr/Ec) 20 mg PO DAILY fluticasone propionate 50 mcg/actuation [place],Suspension 1 spray INTRANASAL DAILY PRN (Reason: allergy symptoms) Rx Instructions: administer into each nostril magnesium citrate Solution 300 ml PO X1 Qty: 2 0RF Rx Instructions: May repeat in 12 hours if no large bowel movement primidone [Mysoline] 50 mg tablet 50 mg PO QHS clopidogrel 75 mg Tablet 75 mg PO DAILY 30 Days Qty: 30 0RF (DME) blood-glucose meter [Accu-Chek Guide Glucose Meter] Misc See Rx Instructions .Route Qty: 1 0RF Rx Instructions: As directed with ACHS checks for ISS and also PRN (DME) Accu-Chek Guide test strips Strip See Rx Instructions .Route Qty: 100 0RF Rx Instructions: As directed, may substitute test strips to match patient machine. Use ACHS and PRN. (DME) lancets Misc See Rx Instructions .Route Qty: 200 0RF Rx Instructions: As directed for obtaining ACHS and PRN accu checks. lisinopril 2.5 mg Tablet 2.5 mg PO DAILY 30 Days Qty: 30 0RF atorvastatin 40 mg tablet 40 mg PO DAILY ipratropium-albuterol 0.5 mg-3 mg(2.5 mg base)/3 mL Solution For Nebulization 3 ml inhalation Q6H PRN (Reason: COPD with exacerbation) nystatin [Nyamyc] 100,000 unit/gram Powder 1 applic topical BID PRN (Reason: skin irritation) Protocol: *Topical Application Instructions APPLICATION INSTRUCTIONS: axillary Rx Instructions: Cleanse affected skin with soap/water, pat dry and then apply powder. insulin lispro [Humalog KwikPen Insulin] 100 unit/mL Insulin Pen 1 sliding scale dose subcut ACHS Protocol: 3. Sliding Scale Insulin Med Dosing Condition: 150-189 mg/dl = 1 unit Condition: 190-229 mg/dl = 2 units Condition: 230-269 mg/dl = 3 units Condition: 270-309 mg/dl = 4 units Condition: 310-349 mg/dl = 5 units Condition: 350-399 mg/dl = 6 units Condition: 400-449 mg/dl = 7 units Condition: Greater than 449 call physician Protocol Text: Suggested for: - Patients on Total Daily Insulin Dose of 37-55 units - Obese, infected, or steroid patients MEDIUM DOSING ALGORITHIM insulin glargine-yfgn 100 unit/mL (3 mL) Insulin Pen 16 unit subcut BID Rx Instructions: Please continue insulin as rx; however, when you finish your steroid therapy for COPD exacerbation, the regimen may need decreased. Please monitor your blood sugars and closely follow with your PCP. prednisone 20 mg tablet 40 mg PO DAILY Qty: 10 0RF potassium chloride 20 mEq tablet,ER particles/crystals 20 meq PO BID Qty: 6 0RF Discontinued amlodipine 10 mg Tablet 10 mg PO DAILY carvedilol 3.125 mg Tablet 3.125 mg PO BID 30 Days Qty: 60 0RF Referrals [facility] [[facility] - Disposition Disposition (needs filled in before D/C Order can be placed): Home, Self Care
[2024-12-24 11:48] LABS: Bedside Glucose 323 mg/dL (74-106)
--- NOTE | 2024-12-24 15:30 | DS.PCM_ITS ---
Providers Date of Admission: 12/21/24 Primary Care Physician: [facility] Consultations 12/21/24 11:29 Consult: Cardiology Routine Consulting Provider: Delmar Vela Reason for Consult: New onset atrial fibrillation EMERGENT Consult: No MD Notified: Yes Date Notified: 12/21/24 Time Notified: 11:29 Method of Notification: ED Physician Initiated Reason For Visit: NEW AFIB Diagnosis Discharge Diagnosis (1) Hypoglycemia associated with diabetes: Status: Acute Code(s): E11.649 - Type 2 diabetes mellitus with hypoglycemia without coma (2) New onset atrial fibrillation: Status: Acute Code(s): I48.91 - Unspecified atrial fibrillation Medications at Discharge Home Medications melatonin 3 mg tablet 3 mg PO QHS sleep aid 12/23/21 multivitamin 1 tab PO DAILY multivitamin 12/23/21 tamsulosin 0.4 mg capsule 0.4 mg PO QHS urinary retention 12/23/21 guaifenesin 200 mg tablet 200 mg PO Q4H PRN Cough 02/21/22 albuterol sulfate 90 mcg/actuation aerosol inhaler (Ventolin HFA) 1 inh inhalation BID COPD 03/24/22 fluticasone propionate 50 mcg/actuation nasal spray,suspension 1 spray intranasal DAILY PRN allergy symptoms 04/29/22 pantoprazole 20 mg tablet,delayed release 20 mg PO DAILY GERD 04/29/22 glipizide 10 mg tablet 10 mg PO BID Diabetes 04/29/23 potassium chloride 20 mEq tablet,extended release(part/cryst) 20 meq PO BID potassium #6 tabs 06/16/23 primidone 50 mg tablet (Mysoline) 50 mg PO QHS primidone 05/05/24 blood sugar diagnostic (Accu-Chek Guide test strips) #100 ea 06/28/24 blood-glucose meter (Accu-Chek Guide Glucose Meter) #1 ea 06/28/24 clopidogrel 75 mg tablet 75 mg PO DAILY anti platelet 30 days #30 tabs 06/28/24 lancets #200 ea 06/28/24 lisinopril 2.5 mg tablet 2.5 mg PO DAILY blood pressure 30 days #30 tabs 06/28/24 atorvastatin 40 mg tablet 40 mg PO DAILY cholesterol 10/03/24 insulin glargine-yfgn 100 unit/mL (3 mL) subcutaneous pen 16 unit subcut BID diabetes 10/03/24 insulin lispro 100 unit/mL subcutaneous pen (Humalog KwikPen (U-100) Insulin) 1 sliding scale dose subcut ACHS diabetes 10/03/24 ipratropium 0.5 mg-albuterol 3 mg (2.5 mg base)/3 mL nebulization soln 3 ml inhalation Q6H PRN COPD with exacerbation 10/03/24 nystatin 100,000 unit/gram topical powder (Nyamyc) 1 applic topical BID PRN skin irritation 10/03/24 prednisone 20 mg tablet 40 mg (2 x 20 mg) PO DAILY #10 tabs 10/05/24 magnesium citrate 300 ml PO X1 #2 BOTTLES 10/07/24 amlodipine 2.5 mg tablet 2.5 mg PO DAILY 30 days #30 tabs 12/24/24 apixaban 5 mg tablet (Eliquis) 5 mg PO BID 30 days #60 tabs 12/24/24 fosfomycin tromethamine 3 gram oral packet 1 packet PO QODAY 3 doses #1 ea 12/24/24 metoprolol tartrate 50 mg tablet 50 mg PO BID 30 days #60 tabs 12/24/24 prednisone 10 mg tablet 10 mg PO DAILY #32 tabs 12/24/24 Hospital Course Operations None Procedures 2-D Echocardiogram Summary of Care Provided Minutes Spent on Discharge: 36 Hospital Course: Per HPI: NAUN GARCÍA, is a 74 M who presents to the hospital after mechanical fall at home, he noticed that try to get out of bed he was weak in his lower extremities and then when he finally was able to sit up he felt dizzy. He is not sure if he blacked out or not when he fell and he is not complaining of any headache or head pain CT of the brain was unremarkable. After his fall EMS was called and he was found to be hypoglycemic to 38 which was treated by EMS. When he presented to the hospital he they did a skeletal survey which did not show any fractures however he was found to then be in A-fib with RVR. Heart rates have been variable but mostly less than 120 so cardiology recommended an echocardiogram and metoprolol 25 mg p.o. twice daily. As well as anticoagulation with Eliquis. He has describes some progressive shortness of breath over the last several months he does have some wheezing secondary to a history of COPD that he takes albuterol for. Hospital Course: 1. New onset A-fib/essential HTN/HLD ? Appreciate cardiology's assistance ? TSH was normal ? Continue with metoprolol 25 mg p.o. twice daily and discontinue his Coreg ? Continue with Eliquis 5 mg p.o. twice daily ? He had an echo on 06/23/2024 with an EF of 40% with an RVSP of 46 mmHg with severe inferior and inferior septal and anterior septal hypokinesis. Echocardiogram from yesterday with EF of 50% 12/24/2024: I discussed with him the plan for discharge today he expressed understanding of the risks and benefits of going home and he would like to go home today. His metoprolol was increased to 50 mg p.o. twice daily by cardiology and his Coreg was discontinued in order to treat his A-fib. Will continue with Eliquis 5 mg p.o. twice daily on discharge. 2. UTI ? Urine culture pending, he previously grew ESBL ? Continue with meropenem ? Urine culture results are likely to be delayed secondary to miscommunication in the microbiology lab if he is adamant about leaving tomorrow then can likely transition to fosfomycin 12/24/2024: He did not want to wait for final culture results given his previous history of ESBL, will discharge on fosfomycin p.o. 3. Type 2 diabetes with hyperglycemia ? Will reduce his insulin dosing and place him on a cardiac diet ? Sliding scale insulin ? Accu-Cheks ACHS ? Will monitor make adjustments as necessary 4. Mild COPD exacerbation ?He is currently requiring 2 L nasal cannula as he desaturated to 88% on room air ?Will add steroids as well as continuing his home inhalers 12/24/2024: Will place him on a steroid taper, he did have an amatory pulse ox today which did not demonstrate a need for oxygen on discharge either at rest or with ambulation. I did continue to encourage using incentive spirometer's at home as well as inhalers. Physical Exam Narrative General: Alert, Oriented x3, Cooperative, No apparent distress HEENT: Atraumatic, PERRLA, EOMI, Normocephalic Oral: Moist Mucosa Neck: Supple, No JVD Lungs: Diminished, Normal air movement, No rhonchi, scattered wheeze, No rales Cardiovascular: Irregular rate and rhythm, Normal S1, Normal S2, No murmurs Abdomen: Soft, Non Tender, Non-Distended, No Hepato-splenomegaly Extremities: No edema, Capillary Refill Less than 3 Seconds Skin: No rashes, No breakdown Musculoskeletal: Pain to palpation of his left shoulder, improved Neurological: No focal neurological deficits, Motor Exam 5/5 strength throughout, Sensory exam intact to light touch and pain Psych/Mental Status: Normal Affect, Appropriate Weight / BMI Weight Weight: 186 lb 11.704 oz Body Mass Index (BMI) 26.0 ABG / Lab / Microbiology Data 12/24/24 06:43 12/24/24 06:43 Laboratory: Laboratory Results - last 24 hr 12/22/24 11:19: POC Glucose 417 H 12/22/24 11:24: POC Glucose 445 H 12/23/24 17:14: POC Glucose 353 H 12/23/24 22:20: POC Glucose 370 H 12/24/24 06:43: WBC 18.9 H, RBC 4.49 L, Hgb 13.5, Hct 40.0, MCV 89.1, MCH 30.1, MCHC 33.8, RDW Std Deviation 47.4 H, RDW Coeff of Tarik 14.6, Plt Count 415, MPV 10.1, Immature Gran % (Auto) 1.200 H, Neut % (Auto) 89.9 H, Lymph % (Auto) 5.8 L , [place] % (Auto) 2.8, Eos % (Auto) 0.0, Baso % (Auto) 0.3, Absolute Neuts (auto) 17.0 H, Absolute Lymphs (auto) 1.10, Nucleated RBC % 0, Sodium 134 L, Potassium 4.1, Chloride 103, Carbon Dioxide 24.0, Anion Gap 8, BUN 23 H, Creatinine 0.94, Estim Creat Clear Calc 72.32, Est GFR (MDRD) Af Amer 100, Est GFR (MDRD) Non-Af 83, BUN/Creatinine Ratio 24.4 H, Glucose 297 H, Calcium 9.1 12/24/24 06:51: POC Glucose 296 H 12/24/24 11:23: POC Glucose 323 H Microbiology: Microbiology 12/23/24 13:35 Urine, Clean Catch Urine Culture - Preliminary Culture exhibits no growth. D/C Instructions Discharge Diet: Low fat / Low cholesterol Call your doctor if you observe: Fever of 101 or Higher, Shortness of breath, Dizziness, Fainting spells, Swelling in the ankles, Chest pain and Increased palpitations (irregular heartbeat) DC O2, CPAP, BIPAP Needs RN Home O2 Qualification: Home O2 Qualification: Is the patient on home oxygen No 12/24/24 09:48 Home O2 Qualification: AT REST 1- Pulse Ox at rest 95 12/24/24 09:48 Home O2 Qualification: WITH AMBULATION 1- Pulse Ox with ambulation 90 12/24/24 09:48 1- Oxygen Flow Rate with 0 12/24/24 09:48 ambulation PSN CPAP & BiPAP: BiPAP & CPAP Settings per PSN Fraction of Inspired Oxygen ( 2 12/23/24 15:30 FIO2) Home O2 Discharge instructions: No Meaningful Use Info Meaningful Use Meaningful Use Diagnoses (Choose all that apply): None applicable Ischemic Stroke Statin Dosing Therapy Reference: STATIN DOSE THERAPY REFERENCE: * Patients > 75 years receive moderate or high dose statin therapy. * Patients 75 years or YOUNGER should receive HIGH intensity statin dose unless contraindicated. You will be required to document reason for non-treatment if statin daily dose does not meet guidelines. HIGH DOSE STATIN THERAPY DAILY Atorvastatin > than or = to 40 mg Rosuvastatin > than or = to 20 mg Amlodipine + Atorvastatin > than or = to 2.5/40 mg Ezetimibe + Simvastatin 10/80 mg Simvastatin 80mg Discharge Plan Admission Admit Date/Time: 12/21/24 11:43 Attending Provider: Allen Caro Primary Care Provider: [facility],[place] Consulting Providers: Delmar Vela Discharge Orders/Prescriptions Prescriptions: New amlodipine 2.5 mg Tablet 2.5 mg PO DAILY 30 Days Qty: 30 0RF metoprolol tartrate 50 mg Tablet 50 mg PO BID 30 Days Qty: 60 0RF Eliquis 5 mg Tablet 5 mg PO BID 30 Days Qty: 60 0RF prednisone 10 mg tablet 10 mg PO DAILY Qty: 32 0RF Rx Instructions: Take 4 tablets daily for 3 days then 3 tablets daily for 3 days then 2 tablets daily for 3 days then 1 tablet daily for 3 days then half tablet daily for 4 days fosfomycin tromethamine 3 gram packet 1 packet PO QODAY Qty: 1 0RF Continued glipizide 10 mg tablet 10 mg PO BID multivitamin Tablet 1 tab PO DAILY melatonin 3 mg Tablet 3 mg PO QHS tamsulosin 0.4 mg Capsule 0.4 mg PO QHS guaifenesin 200 mg Tablet 200 mg PO Q4H PRN (Reason: Cough) albuterol sulfate [Ventolin HFA] 90 mcg/actuation HFA aerosol inhaler 1 inh inhalation BID pantoprazole 20 mg Tablet,Delayed Release (Dr/Ec) 20 mg PO DAILY fluticasone propionate 50 mcg/actuation [place],Suspension 1 spray INTRANASAL DAILY PRN (Reason: allergy symptoms) Rx Instructions: administer into each nostril magnesium citrate Solution 300 ml PO X1 Qty: 2 0RF Rx Instructions: May repeat in 12 hours if no large bowel movement primidone [Mysoline] 50 mg tablet 50 mg PO QHS clopidogrel 75 mg Tablet 75 mg PO DAILY 30 Days Qty: 30 0RF (DME) blood-glucose meter [Accu-Chek Guide Glucose Meter] Misc See Rx Instructions .Route Qty: 1 0RF Rx Instructions: As directed with ACHS checks for ISS and also PRN (DME) Accu-Chek Guide test strips Strip See Rx Instructions .Route Qty: 100 0RF Rx Instructions: As directed, may substitute test strips to match patient machine. Use ACHS and PRN. (DME) lancets Misc See Rx Instructions .Route Qty: 200 0RF Rx Instructions: As directed for obtaining ACHS and PRN accu checks. lisinopril 2.5 mg Tablet 2.5 mg PO DAILY 30 Days Qty: 30 0RF atorvastatin 40 mg tablet 40 mg PO DAILY ipratropium-albuterol 0.5 mg-3 mg(2.5 mg base)/3 mL Solution For Nebulization 3 ml inhalation Q6H PRN (Reason: COPD with exacerbation) nystatin [Nyamyc] 100,000 unit/gram Powder 1 applic topical BID PRN (Reason: skin irritation) Protocol: *Topical Application Instructions APPLICATION INSTRUCTIONS: axillary Rx Instructions: Cleanse affected skin with soap/water, pat dry and then apply powder. insulin lispro [Humalog KwikPen Insulin] 100 unit/mL Insulin Pen 1 sliding scale dose subcut ACHS Protocol: 3. Sliding Scale Insulin Med Dosing Condition: 150-189 mg/dl = 1 unit Condition: 190-229 mg/dl = 2 units Condition: 230-269 mg/dl = 3 units Condition: 270-309 mg/dl = 4 units Condition: 310-349 mg/dl = 5 units Condition: 350-399 mg/dl = 6 units Condition: 400-449 mg/dl = 7 units Condition: Greater than 449 call physician Protocol Text: Suggested for: - Patients on Total Daily Insulin Dose of 37-55 units - Obese, infected, or steroid patients MEDIUM DOSING ALGORITHIM insulin glargine-yfgn 100 unit/mL (3 mL) Insulin Pen 16 unit subcut BID Rx Instructions: Please continue insulin as rx; however, when you finish your steroid therapy for COPD exacerbation, the regimen may need decreased. Please monitor your blood sugars and closely follow with your PCP. prednisone 20 mg tablet 40 mg PO DAILY Qty: 10 0RF potassium chloride 20 mEq tablet,ER particles/crystals 20 meq PO BID Qty: 6 0RF Discontinued amlodipine 10 mg Tablet 10 mg PO DAILY carvedilol 3.125 mg Tablet 3.125 mg PO BID 30 Days Qty: 60 0RF Referrals / [facility] [[facility] - Disposition Disposition (needs filled in before D/C Order can be placed): Home, Self Care Charges/Coding Visit Charges Inpatient E&M: 23473 Disch Hosp >30min
== END 2024-12-24 13:55 | disposition home or self-care (01) | DRG 309 ==
LOC: ED 11:44 → PCU 11:57
PROVIDERS: Admitting Provider Family Medicine; Emergency Provider Emergency Medicine; Referring Provider Family Medicine; Visit Provider Family Medicine
DX: I48.91 Unspecified atrial fibrillation (principal); J44.1 Chronic obstructive pulmonary disease with (acute) exacerbation; N39.0 Urinary tract infection, site not specified; Z16.12 Extended spectrum beta lactamase (ESBL) resistance; E11.65 Type 2 diabetes mellitus with hyperglycemia; I10 Essential (primary) hypertension; E78.5 Hyperlipidemia, unspecified; Z79.4 Long term (current) use of insulin; E87.6 Hypokalemia; Z79.51 Long term (current) use of inhaled steroids; Z79.84 Long term (current) use of oral hypoglycemic drugs; Z79.899 Other long term (current) drug therapy; Z87.891 Personal history of nicotine dependence
CPT/HCPCS: 36415; 70450; 71045; 72125; 73000; 73030; 80048; 80053; 81001; 82962; 83735; 84100; 84443; 84484; 85025; 85027; 87086; 93005; 93306; 94640; 97110; 97116; 97162; 97166; 97530; 97535; 97802; 99285; J2185; Q9957; A4216; C8929

== ENCOUNTER → 2025-01-19 | Outpatient (CLI) | payer MEDICARE, SELFPAY ==
[2022-04-22 08:14] VITALS: BMI 30.6
--- NOTE | 2025-01-19 08:57 | AAAS_ITS ---
Reason For Study Reason For Study: Screening Aorta Measurements Aorta Doppler Measurements Proximal aorta measures1.89x1.89cm. in cross-sectional axis.Peak systolic flow velocities within the proximal aorta Proximal aorta measures1.89cm. in longitudinal axis. measure 54.2 cm/sec. Mid aorta measures3.33x3.28cm. in cross-sectional axis. Peak systolic flow velocities within the mid aorta measure Mid aorta measures3.33cm. in longitudinal axis. 26.3 cm/sec. Distal aorta measures1.99x1.99cm. in cross-sectional axis. Peak systolic flow velocities within the distal aorta Distal aorta measures1.88cm. in longitudinal axis. measure 51.5 cm/sec. Left Iliac Artery Left iliac artery measures 1.23 cm. in the longitudinal axis. Left iliac artery measures 1.21x1.21 cm. in the cross- sectional axis. Peak systolic velocity in the left iliac artery measures 105.2 cm/sec. Right Iliac Artery Right iliac artery measures 1.29 cm. in the longitudinal axis. Right iliac artery measures 1.37x1.37 cm. in the cross- sectional axis. Peak systolic velocity in the right iliac artery measures 63.6 cm/sec. Procedure Aorta IVC Iliac vasculature or bypass grafts [id number]. Exam performed in department.
== END | disposition home or self-care (01) ==
LOC: US 08:53 → CVS 08:57
PROVIDERS: Referring Provider Surgery Trauma Surgery; Visit Provider Surgery Trauma Surgery
DX: I71.40 Abdominal aortic aneurysm, without rupture, unspecified (principal)
CPT/HCPCS: 76706

== ENCOUNTER 2025-05-30 08:49 | Emergency (ER) | payer MEDICARE, SELFPAY ==
[2022-04-22 08:14] VITALS: BMI 30.6
[2025-05-30 08:50] VITALS: BP 142/94; PULSE 86; RESP 20; TEMP 36.9; O2SAT 99; BMI 58.3
--- NOTE | 2025-05-30 09:00 | CT_ITS ---
EXAM: NONCONTRAST CT SCAN OF THE HEAD CLINICAL HISTORY: Headache, positional COMPARISON: December 21, 2024 TECHNIQUE: Serial axial series through the head were obtained without contrast. 2-D coronal and sagittal reformats were then obtained. FINDINGS: Brain: There is low-density consistent with chronic ischemic change in the deep white matter on the right and left basal ganglia, similar to the prior. There is no acute large territorial infarct, intracranial hemorrhage, midline shift or mass effect. There are atherosclerotic vascular calcifications involving the bilateral carotid siphons. The sella and pineal gland regions appear unremarkable. There is no evidence of cerebellar tonsillar herniation. Ventricles: There is no acute hydrocephalus. Basilar cisterns are patent. Paranasal sinuses: Well-aerated Mastoid air cells: Well-aerated. Calvarium: The bony calvarium is intact. Orbits: The bilateral globes are symmetric, without retrobulbar compressive mass lesion or hemorrhage. CT/Brain/Head without Contrast IMPRESSION: There is low-density consistent with chronic ischemic change in the deep white matter on the right and left basal ganglia, similar to the prior. No acute intracranial pathology. Reading Location: [facility]
--- NOTE | 2025-05-30 09:01 | EDS_ITS ---
HPI History of Present Illness Chief Complaint: Headache Detail of Chief Complaint: By lateral headache with tenderness in the religion area Informant: patient Onset/Context/Timing Onset: Days (Approximately 3 days ago) Quality -Headache: Positive for Other (Pain); Negative for Similar Prior Headaches, Sharp, Dull, Throbbing, Tightness or Burning Location: Tenderness bitemporal but complains of bilateral headache Current Severity: Moderate Maximum Severity: Severe Worsened by: Palpation and change in position Relieved by: Nothing Associated Symptoms/Injury Associated Symptoms: Positive for Fever (Subjective) and Nausea; Negative for Vomiting, Sore Throat, Sinus Pressure, Numbness, Tingling, Preceding Aura, Visual Changes, Blurred Vision, Photophobia or Visual Loss Injury - GODOY: Negative for Direct Trauma Narrative Narrative: Patient is a 74-year-old male with history of COPD, diabetes, hypertension, GERD, dyslipidemia and prostate cancer diagnosed last year who presents with headache that started approximately 4 days ago. He states he has problems with his balance. He denies double vision, blurred vision or loss of vision. He does have tenderness over the right and left religion area worse right. Headache is worse when he is supine. He states for approximately the past 3 to 4 days she has had trouble opening his mouth completely. He denies discomfort with chewing. He denies trouble with speech or swallowing. He denies paresthesia, anesthesia or motor weakness. Patient is noted to be slightly tachypneic. He states sometimes he is short of breath after walking. He denies cough or sputum production. He denies abdominal pain. He does endorse nausea without vomiting or diarrhea. He denies dysuria, frequency, urgency or hematuria. Prior similar symptoms: No Recent Illness/Hospitalization: No PFSH PFS Medical History ESBL (extended spectrum beta-lactamase) producing bacteria infection Osteoporosis Migraines Loss of hearing Rash Insulin dependent diabetes mellitus BPH (benign prostatic hyperplasia) History of ESBL E. coli infection Left ventricular systolic dysfunction (LVSD) Hyperbilirubinemia Transaminitis Hyperglycemia due to type 2 diabetes mellitus Prostate disease Dietary restriction [place] of back Sebaceous cyst Aneurysm Anxiety Excessive bleeding Chronic cough History of edema History of stress test History of echocardiogram Degenerative joint disease of hand Hyperlipidemia Benign essential hypertension Wears hearing aid Wears glasses Wears dentures Depression Alcohol use Diabetes History of steroid therapy Arthritis Hepatitis Easy bruising Gastric reflux Shortness of breath on exertion On home oxygen therapy Leg cramps Former smoker Hypertension COPD (chronic obstructive pulmonary disease) Smoking greater than 40 pack years Leukocytosis Home Medications Medication Instructions Recorded Last Taken Type melatonin 3 mg tablet 3 mg PO QHS sleep aid 10/02/24 History multivitamin 1 tab PO DAILY multivitamin 12/23/21 10/03/24 History guaifenesin 200 mg tablet 200 mg PO Q4H PRN Cough 02/07 03/30 Unknown History albuterol sulfate 90 mcg/actuation 1 inh inhalation BI D COPD 03/24/22 07/01/23 History aerosol inhaler (Ventolin HFA) fluticasone propionate 50 1 spray intranasal DAILY PRN 04/29/22 06/19/24 History mcg/actuation nasal allergy symptoms spray,suspension glipizide 10 mg tablet 10 mg PO BID Diabetes 10/03/24 History potassium chloride 20 mEq 20 meq PO BID potassium #6 t abs 06/16/23 10/03/24 Rx tablet,extended release(part/cryst) primidone 50 mg tablet (Mysoline) 50 mg PO QHS primido ne 05/05/24 10/02/24 History blood sugar diagnostic (Accu-Chek #100 ea 06/28/24 Unk nown Rx Guide test strips) blood-glucose meter (Accu-Chek #1 ea 06/28/24 Unknown Rx Guide Glucose Meter) lancets #200 ea 06/28/24 Unknown Rx lisinopril 2.5 mg tablet 2.5 mg PO DAILY blood pressu re 30 06/28/24 Unknown Rx days #30 tabs atorvastatin 40 mg tablet 40 mg PO DAILY cholesterol 1 12/03/23 10/03/24 History insulin glargine-yfgn 100 unit/mL 16 unit subcut BID d iabetes 10/03/24 10/03/24 History (3 mL) subcutaneous pen insulin lispro 100 unit/mL 1 sliding scale dose subcut ACHS 10/03/24 10/03/24 History subcutaneous pen (Humalog KwikPen diabetes (U-100) Insulin) ipratropium 0.5 mg-albuterol 3 mg 3 ml inhalation Q6H PRN COPD with 10/03/24 Unknown History (2.5 mg base)/3 mL nebulization exacerbation soln nystatin 100,000 unit/gram topical 1 applic topical BI D PRN skin 10/03/24 Unknown History powder ([facility]) irritation amlodipine 2.5 mg tablet 2.5 mg PO DAILY 30 days #30 tabs 12/24/24 Unknown Rx fosfomycin tromethamine 3 gram 1 packet PO QODAY 3 dos es #1 ea 12/24/24 Unknown Rx oral packet metoprolol tartrate 50 mg tablet 50 mg PO BID 30 days #60 tabs 12/24/24 Unknown Rx Allergy/AdvReac Type Severity Reaction Status Date / Time No Known Allergies Allergy Verified 05/30/25 08:51 Family History Father Cancer Heart disease Mother Heart disease Myocardial infarction Surgical History History of excision of mass History of cataract surgery History of esophagogastroduodenoscopy (EGD) Hx of colonoscopy History of hand surgery Hx of appendectomy H/O wrist surgery Social History household members: significant other Smoking Status: Former smoker quit date: 09/26/21 pack-years: 90 Tobacco: How many years used: 60 alcohol intake: former substance use type: does not use ROS ROS ED Constitutional Constitutional ED: Reports chills, fever(s) and subjective; Denies sweats or weight loss Eyes Eyes: Denies blurry vision, change in vision or diplopia ENT ENT ED: Denies ear pain, rhinorrhea or sore throat Cardiovascular Cardiovascular: Denies chest pain, orthopnea, palpitations or paroxysmal nocturnal dyspnea Respiratory/Chest Respiratory/Chest: Reports dyspnea and dyspnea on exertion; Denies cough, orthopnea or paroxysmal nocturnal dyspnea Gastrointestinal Gastrointestinal: Reports nausea; Denies abdominal pain, diarrhea, melena or vomiting Genitourinary Genitourinary ED: Denies dysuria, hematuria or urinary frequency Musculoskeletal Musculoskeletal: Denies arthralgias or myalgias Integumentary Denies abscess or rash Neurologic Neurologic: Reports headache(s); Denies paresthesias or weakness Hematologic/Lymphatic Hematologic/Lymphatic: Denies easy bleeding or easy bruising EXAM Physical Exam Const Vital Signs: 05/30/25 08:50 Temperature 98.4 F Temperature Source Oral Pulse Rate 86 Respiratory Rate 20 H Blood Pressure 142/94 H Blood Pressure Mean 110 Pulse Ox 99 Oxygen Delivery Method Room Air Positive well nourished and well developed Constitutional Narrative: Patient is slightly tachypneic. Patient does not appear well. General Appearance ED: well developed; Negative for cyanotic, diaphoretic or pallor HEENT Reports normocephalic, TM's clear and dry mucous membranes; Denies moist mucous membranes HEENT Narrative: Nares patent. No drainage. Posterior pharynx erythema or exudate. Uvula is midline. There is no deviation of the tongue with protrusion. atraumatic, tenderness and temporal artery tenderness bilateral (Right greater than left); Negative for vesicular rash Tympanic Membrane ED: Yes TM's clear Mouth ED: Yes dry mucous membranes Mouth: dry mucous membranes Eyes PERRL and EOMs intact bilaterally General Eye ED: Negative for pale conjunctiva or scleral icterus Neck no lymphadenopathy, supple, no meningeal signs and no JVD Resp normal respiratory effort and clear to auscultation bilaterally Cardio regular rate, regular rhythm, S1 normal heart sound, S2 normal heart sound and no murmurs GI non-tender Auscultation: normoactive bowel sounds Palpation: soft Back/Spine no CVA tenderness Extremity normal to inspection, full ROM and normal capillary refill General Extremety ED: Negative for edema or tenderness General Extremity: Negative for edema Neuro oriented x3, CN's II-XII intact bilaterally and no sensory deficits noted Sensorium / Orientation: awake and alert Coordination / Balance: [id number] test normal Speech: speech normal Motor Exam: strength 5/5 throughout Psych Mood & Affect: depressed Skin General Skin Exam: Negative for elasticity normal, turgor normal, jaundice or pallor Lesions: no lesions Rashes: no rashes MDM MDM MDM Narrative Medical decision making narrative: Differential diagnosis would include sinus infection since is positional. With him having tenderness over the temporal artery need to be, this could be a vascular headache or tension headache. He reports problems with balance however his neuroexam is nonfocal. CT of the head was obtained to determine if there is any intracranial pathology since he is reporting night sweats. He states that his sheets are soaked. BMP to assess renal function in the event contrast needs to be given and to assess glucose CO2 anion gap since he is diabetic. History & Record Review Additional record(s) reviewed:: Prior inpatient record (Patient was admitted December of this year for COPD exacerbation. ER note authored by the her reviewed the echo was reviewed as well as admission note by Dr. Allen Gutierrez's and his discharge note. She was also admitted September of last year for COPD exacerbation.), Prior ED visit and Prior labs Lab Data Attestation: I reviewed the patient's lab results. Lab results narrative: White count is elevated 14.5 thousand with slight shift. This is not a new abnormality. Sed rate is slightly elevated 36. It is not significant when corrected for age. When corrected for age normal is 37.5. Labs: Laboratory Results - last 24 hr 05/30/25 09:13 WBC 14.5 H RBC 4.09 L Hgb 12.1 L Hct 37.4 L MCV 91.4 MCH 29.6 MCHC 32.4 RDW Std Deviation 46.1 H RDW Coeff of Tarik 13.6 Plt Count 605 H MPV 9.2 Immature Gran % (Auto) 0.900 Neut % (Auto) 79.3 H Lymph % (Auto) 11.1 L [place] % (Auto) 7.4 Eos % (Auto) 1.0 Baso % (Auto) 0.3 Absolute Neuts (auto) 11.5 H Absolute Lymphs (auto) 1.61 Nucleated RBC % 0 ESR 36 H Sodium 134 Potassium 4.4 Chloride 99 Carbon Dioxide 24.7 Anion Gap 11 BUN 12 Creatinine 0.87 Estim Creat Clear Calc 125.75 Est GFR (MDRD) Non-Af 90 BUN/Creatinine Ratio 14.2 Glucose 274 H Calcium 9.7 Radiography Diagnostic Testing: Clinical Impression(s) from Imaging Studies Brain CT 05/30/25 09:00 IMPRESSION: There is low-density consistent with chronic ischemic change in the deep white matter on the right and left basal ganglia, similar to the prior. No acute intracranial pathology. Reading Location: [facility] C-minus of the head reveals no acute findings. There is atrophy. There is no mucosal thickening or fluids noted in the frontal, ethmoid, maxillary or sphenoid sinuses. Or mass effect noted. Awaiting formal read by radiologist, 0938 Treatment and Re-Evaluation Narrative: Patient was reassessed at 1039. Patient is smiling. His headache is resolved. Will discharge to home. Discharge Plan Triage Chief Complaint: Headache ED Provider: Facundo Sotomayor Dx/Rx/DC Orders Clinical Impression: Acute intractable headache, Dyslipidemia, Essential tremor Instructions: Understanding Headache Pain Prescriptions: No Action glipizide 10 mg tablet 10 mg PO BID multivitamin Tablet 1 tab PO DAILY melatonin 3 mg Tablet 3 mg PO QHS guaifenesin 200 mg Tablet 200 mg PO Q4H PRN (Reason: Cough) albuterol sulfate [Ventolin HFA] 90 mcg/actuation HFA aerosol inhaler 1 inh inhalation BID fluticasone propionate 50 mcg/actuation [place],Suspension 1 spray INTRANASAL DAILY PRN (Reason: allergy symptoms) Rx Instructions: administer into each nostril primidone [Mysoline] 50 mg tablet 50 mg PO QHS (DME) blood-glucose meter [Accu-Chek Guide Glucose Meter] Misc See Rx Instructions .Route Qty: 1 0RF Rx Instructions: As directed with ACHS checks for ISS and also PRN (DME) Accu-Chek Guide test strips Strip See Rx Instructions .Route Qty: 100 0RF Rx Instructions: As directed, may substitute test strips to match patient machine. Use ACHS and PRN. (DME) lancets Misc See Rx Instructions .Route Qty: 200 0RF Rx Instructions: As directed for obtaining ACHS and PRN accu checks. lisinopril 2.5 mg Tablet 2.5 mg PO DAILY 30 Days Qty: 30 0RF atorvastatin 40 mg tablet 40 mg PO DAILY ipratropium-albuterol 0.5 mg-3 mg(2.5 mg base)/3 mL Solution For Nebulization 3 ml inhalation Q6H PRN (Reason: COPD with exacerbation) nystatin [Nyamyc] 100,000 unit/gram Powder 1 applic topical BID PRN (Reason: skin irritation) Protocol: *Topical Application Instructions APPLICATION INSTRUCTIONS: axillary Rx Instructions: Cleanse affected skin with soap/water, pat dry and then apply powder. insulin lispro [Humalog KwikPen Insulin] 100 unit/mL Insulin Pen 1 sliding scale dose subcut ACHS Protocol: 3. Sliding Scale Insulin Med Dosing Condition: 150-189 mg/dl = 1 unit Condition: 190-229 mg/dl = 2 units Condition: 230-269 mg/dl = 3 units Condition: 270-309 mg/dl = 4 units Condition: 310-349 mg/dl = 5 units Condition: 350-399 mg/dl = 6 units Condition: 400-449 mg/dl = 7 units Condition: Greater than 449 call physician Protocol Text: Suggested for: - Patients on Total Daily Insulin Dose of 37-55 units - Obese, infected, or steroid patients MEDIUM DOSING ALGORITHIM insulin glargine-yfgn 100 unit/mL (3 mL) Insulin Pen 16 unit subcut BID Rx Instructions: Please continue insulin as rx; however, when you finish your steroid therapy for COPD exacerbation, the regimen may need decreased. Please monitor your blood sugars and closely follow with your PCP. amlodipine 2.5 mg Tablet 2.5 mg PO DAILY 30 Days Qty: 30 0RF metoprolol tartrate 50 mg Tablet 50 mg PO BID 30 Days Qty: 60 0RF fosfomycin tromethamine 3 gram packet 1 packet PO QODAY Qty: 1 0RF potassium chloride 20 mEq tablet,ER particles/crystals 20 meq PO BID Qty: 6 0RF Primary Care Provider: [facility] Referrals: [facility] [Primary Care Provider] - As Needed Print Language: Spanish Disposition Disposition: Home, Self Care
[2025-05-30 09:32] LABS: Hematocrit 37.4 % (40-54); Hemoglobin 12.1 g/dL (13.0-16.5); Immature Granulocytes Count 0.130 X10^3/uL (0.0-0.0); Mean Corp Hgb Conc 32.4 g/dL (32-36); Mean Corpuscular Volume 91.4 fL (80-94); Mean Platelet Vol. 9.2 fl (6.2-12.0); NRBC Flagged by Analyzer 0 % (0-5); Platelet Count 605 K/mm3 (150-450); RBC Distribution Width CV 13.6 % (11.6-14.6); RBC Distribution Width SD 46.1 fl (35.1-43.9); Red Blood Count 4.09 M/mm3 (4.6-6.2); White Blood Count 14.5 K/mm3 (4.4-11.0)
[2025-05-30 09:54] LABS: Anion Gap 11 (5-15); BUN 12 mg/dL (4-19); BUN/Creat Ratio 14.2 RATIO (10-20); Calcium,Total 9.7 mg/dL (7.6-11.0); Carbon Dioxide 24.7 mmol/L (21.0-32.0); Chloride 99 mmol/L (98-108); Estimated Creatinine Clearance 125.75 ml/min (50-250); Glucose 274 mg/dL (70-99); Potassium 4.4 mmol/L (3.3-5.1)
[2025-05-30 10:49] VITALS: BP 136/76; PULSE 74; RESP 18; TEMP 36.6; O2SAT 99
== END 2025-05-30 10:56 | disposition home or self-care (01) ==
PROVIDERS: Emergency Provider Emergency Medicine; Visit Provider Emergency Medicine
DX: G43.919 Migraine, unspecified, intractable, without status migrainosus (principal); J44.9 Chronic obstructive pulmonary disease, unspecified; E11.9 Type 2 diabetes mellitus without complications; Z79.4 Long term (current) use of insulin; G25.0 Essential tremor; E78.5 Hyperlipidemia, unspecified; I10 Essential (primary) hypertension; Z79.84 Long term (current) use of oral hypoglycemic drugs; Z79.899 Other long term (current) drug therapy; Z87.891 Personal history of nicotine dependence
CPT/HCPCS: 70450; 80048; 85025; 85652; 96374; 99283; A4216

== ENCOUNTER → 2025-06-26 | Outpatient (CLI) | payer MEDICARE, SELFPAY ==
[2022-04-22 08:14] VITALS: BMI 30.6
[2025-06-26 11:02] LABS: PSA,Total- Diagnostic 10.40 ng/mL (0.00-4.00)
== END | disposition home or self-care (01) ==
LOC: LAB 09:54
PROVIDERS: Referring Provider Urology; Visit Provider Urology
DX: R97.20 Elevated prostate specific antigen [PSA] (principal)
CPT/HCPCS: 36415; 84153

== ENCOUNTER → 2025-08-10 | Outpatient (CLI) | payer OTHER, SELFPAY ==
[2022-04-22 08:14] VITALS: BMI 30.6
--- NOTE | 2025-08-10 12:45 | MRI_ITS ---
PROCEDURE: BRAIN W/WO CONTRAST 08/10/2025 REASON FOR EXAM: HEADACHE,DIPLOPIA NEW ONSET TECHNIQUE: Procedure Code: [id number] Modality: MR Procedure: BRAIN W/WO CONTRAST MRI of the brain is performed using multiplanar multisequence images. In addition, thin-section images through the orbits were performed prior to and after the intravenous administration of contrast. CONTRAST: Clariscan VOLUME: 17 mL COMPARISON: Available priors FINDINGS: BRAIN: Moderate to severe small-vessel ischemic changes. No restricted diffusion to indicate acute infarction. No intracranial mass or hemorrhage. No midline shift or extra-axial fluid collection. No sulcal effacement. No cerebellar tonsillar ectopia. The central arterial and venous flow voids are patent. Following contrast, there is no abnormal pattern of enhancement seen within the brain orbits or midbrain. VENTRICLES: No hydrocephalus. ORBITS: There is abnormal T2 signal and edema involving the fat surrounding the left optical nerve with mild induration of the adjacent fat and mild enhancement within the nerve. SINUSES AND MASTOIDS: The sinuses and mastoid air cells are clear. BONES: No focal osseous lesion. MRI/Brain W/WO Contrast IMPRESSION: Left optic neuritis. Diffuse small-vessel ischemic changes. No acute intracranial abnormality. Reading Location: [id number]
== END | disposition home or self-care (01) ==
LOC: OPMRI 12:17
PROVIDERS: Referring Provider Nurse Practitioner Adult Health; Visit Provider Nurse Practitioner Adult Health
DX: R51.9 Headache, unspecified (principal)
CPT/HCPCS: 70553; A9575